=== PATIENT | male | born 1950 | race Caucasian/White ===

== ENCOUNTER 2017-08-26 09:15 | Inpatient (IN) | payer OTHER ==
[2017-08-16 08:40] VITALS: BMI 35.0
--- NOTE | 2017-08-16 09:20 | PAT Medication Instructions ---
Service Date Aug 16, 2017. Current Home Medication List Aspirin (Aspirin Ec), 81 MG PO QAM Cholecalciferol (Vitamin D3), 1 CAP PO QAM Citalopram Hydrobromide (Citalopram Hydrobromide), 1 TAB PO QPM Fluticasone Propionate (Flovent Hfa), 2 PUFFS INH BID Furosemide (Lasix), 20 MG PO QAM Sbywkqrnapq-Hkxvoqdczqz-Qlr C- (Glucosamine Chondroitin), 1 TAB PO QAM Ibrutinib (Imbruvica), 420 MG PO QAM Ipratropium Valencia (Atrovent Hfa), 2 PUFFS INH QID PRN for RN Meloxicam (Mobic), 15 MG PO QAM PRN for RN Metformin Hcl (Glucophage), 500 MG PO BID Multivitamin (Multivitamin), 1 TAB PO QAM Potassium Chloride (Micro-K Ext Rel), 10 MEQ PO QAM Simvastatin (Zocor), 20 MG PO QAM [Cvd], 1 DOSE TOP PRN Medication Instructions For Your Scheduled Surgery - Check with prescribing physician for instructions: Ibrutinib (Imbruvica), 420 MG PO QAM - Already on hold per surgeon: Meloxicam (Mobic), 15 MG PO QAM PRN for RN Hodeuejaube-Hfzumouxcfg-Equ C- (Glucosamine Chondroitin), 1 TAB PO QAM - Hold the following medications 24 hours prior to surgery: [Cvd], 1 DOSE TOP PRN - Hold the following medications the morning of surgery: Cholecalciferol (Vitamin D3), 1 CAP PO QAM Furosemide (Lasix), 20 MG PO QAM Potassium Chloride (Micro-K Ext Rel), 10 MEQ PO QAM Metformin Hcl (Glucophage), 500 MG PO BID Multivitamin (Multivitamin), 1 TAB PO QAM - Take the following medications the morning of surgery with a sip of water: Simvastatin (Zocor), 20 MG PO QAM Ipratropium Valencia (Atrovent Hfa), 2 PUFFS INH QID PRN for RN (if needed) Fluticasone Propionate (Flovent Hfa), 2 PUFFS INH BID Aspirin (Aspirin Ec), 81 MG PO QAM - Take the following medications as scheduled the night before surgery: Metformin Hcl (Glucophage), 500 MG PO BID Ipratropium Valencia (Atrovent Hfa), 2 PUFFS INH QID PRN for RN (if needed) Fluticasone Propionate (Flovent Hfa), 2 PUFFS INH BID Citalopram Hydrobromide (Citalopram Hydrobromide), 1 TAB PO QPM If you have any questions please call us at [phone] or [phone] or [phone]
--- NOTE | 2017-08-16 10:01 | DIAGNOSTIC IMAGING REPORT ---
CHEST 2 VIEWS ROUTINE CLINICAL HISTORY: Preoperative chest COMPARISON STUDY: No previous studies for comparison. FINDINGS: The cardiac and mediastinal contours are normal. There is no evidence of focal pulmonary consolidation. There is no evidence of failure. No pleural effusions are visualized.[ IMPRESSION: No active disease in the chest. Electronically signed by: Ankit Lopes M.D. 08/16/2017 10:00 AM Dictated Date/Time: 08/16/2017 9:59 AM
[2017-08-16 10:18] LABS: HEMOGLOBIN A1C 5.5 % (4.5-5.6)
[2017-08-16 10:33] LABS: HEMATOCRIT 46.4 % (42-52); HEMOGLOBIN 15.2 g/dL (14.0-18.0); MEAN CELL VOLUME 92.4 fL (80-100); MEAN CORPUSCULAR HEMOGLOBIN 30.3 pg (25-34); MEAN CORPUSCULAR HGB CONC 32.8 g/dl (32-36); MEAN PLATELET VOLUME 11.4 fL (7.4-10.4); PLATELET COUNT 200 K/uL (130-400); RED CELL DISTRIBUTION WIDTH CV 15.2 % (11.5-14.5); RED CELL DISTRIBUTION WIDTH SD 50.3 fL (36.4-46.3)
[2017-08-16 11:07] LABS: BASO % 0.3 %; EOS % 0.1 %; LYMPH % 90.4 %; LYMPH ABS # 86.76 K/uL (1.2-3.4); MONO % 1.9 %; NEUT % 7.1 %; NEUT ABS # 6.83 K/uL (1.4-6.5)
[2017-08-16 11:08] LABS: BASO ABS # 0.25 K/uL (0-0.2); IG# 0.22 K/uL (0.00-0.02); MONO ABS # 1.84 K/uL (0.11-0.59)
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
[~2017-08-26] VITALS: Ht 182.9 cm; Wt 117.0 kg
[2017-08-26] VITALS (11 sets, daily range): BP systolic 138–181; BP diastolic 72–101; PULSE 89–116; TEMP 36.3–37; O2SAT 94–100; Ht 182.9 cm; Wt 117.0 kg
[~2017-08-26 09:15] MED LIST: ACETAMINOPHEN 500 MG TAB PO SCH; ASPI81TA28 PO; ATRIN INH; ATROPINE SULFATE 0.1 MG/ML 5ML SYR IV PRN; BUPIVACAINE 0.5 % 5 MG/1 ML PF 10ML VIAL ONE; CEFAZOLIN 2000MG IV PUSH 15 ML IV SCH; CHOL2000 PO; CITA20TA4 PO; EpHEDrine SULFATE INJ 50 MG/ML AMP IV PRN; FAMOTIDINE 20 MG TAB PO SCH; FENTANYL CITRATE INJ 50 MCG/1 ML 2 ML VIAL IV PRN; FLVHFA44 INH; FURO-85 PO; GABAPENTIN 300 MG CAP PO SCH; GLC/500 PO; GLUCTAB7 PO; HYDROmorphone INJ 2 MG/ML SYR/VIAL IV PRN; IBRU420T PO; LABETALOL HCL IV 5 MG/ML 20ML IV PRN; LACTATED RINGER'S 1000ML 1,000 ML IV SCH; LACTATED RINGER'S 1000ML IV SCH; MELO7.5T5 PO; MEPERIDINE HCL 25 MG/ML CARP IV PRN; METOCLOPRAMIDE HCL 10 MG TAB PO SCH; MULT-506 PO; ONDANSETRON INJ 2 MG/ML 2 ML VIAL IV PRN; POTA10CA28 PO; SCOPOLAMINE 1.5 MG TDSY TD SCH; SIMV20TA2 PO; TRANEXAMIC ACID INJ 1,000 MG x 1 Bag Preop IV SCH; [UNRECOGNIZED DRUG - CODE] TOP
[2017-08-26] MEDS ORDERED: BACITRACIN 50000 UNIT VIAL ONE (10:19)
[2017-08-26] MEDS ORDERED: BUPIVACAINE/EPINEPHRINE 0.5% MPF 1:200,000 30 ML VIAL ONE (10:19)
[2017-08-26] MEDS ORDERED: LIDOCAINE HCL 2% 2 ML VIAL (20MG/ML) ONE (11:18)
[2017-08-26] MEDS ORDERED: MIDAZOLAM HCL 1 MG/ML 2ML VIAL ONE (11:18)
[2017-08-26] MEDS ORDERED: PROPOFOL IV EMULSION 10 MG/ML 20 ML VIAL IV ONE (11:18)
[2017-08-26] MEDS ORDERED: FENTANYL CITRATE INJ 50 MCG/1 ML 2 ML VIAL ONE (11:19)
[2017-08-26] MEDS ORDERED: MoRPHine SULFATE PF 1 MG/ML 10 ML AMP/VIAL ONE (11:19)
--- NOTE | 2017-08-26 11:46 | History & Physical Bridge Note ---
H&P Re-Evaluation Bridge Note: I have examined the patient, reviewed the History & Physical and in the interval since the performance of the History & Physical I have noted the following changes of clinical significance: Patient FULLY aware of increased risk of surgery under current chemo regimine and stage of cancer and desires to proceed. No changes noted
[2017-08-26] MEDS ORDERED: EpHEDrine SULFATE 50MG/5ML SYR ONE (12:39)
[2017-08-26] MEDS ORDERED: PHENYLEPHRINE HCL INJ 10 MG/ML VIAL ONE (12:57)
--- NOTE | 2017-08-26 13:44 | [facility] Post Operative Brief Note ---
Immediate Operative Summary Operative Date Aug 26, 2017. Pre-Operative Diagnosis Left Hip Degenerative Joint Disease Post-Operative Diagnosis Same as preop Procedure(s) Performed Left Total Hip Arthroplasty Umcemented Surgeon Dr. Alvarez Director Of Digital Technology Surgeon(s) Constantin Guzmán PA-C Estimated Blood Loss 300ml Findings Consistent with Post-Op Diagnosis Fluids (cc crystalloids) 1500 Specimens A. Left Femoral Head Drains None Anesthesia Type Spinal MAC Complication(s) none Disposition Accompanied Pt To Recover: yes Disposition: Recovery Room / PACU
[2017-08-26] MEDS ORDERED: BISACODYL 10 MG SUPP PR PRN (13:45)
[2017-08-26] MEDS ORDERED: ALUMINUM/MAGNESIUM/SIMETH (MAALOX MAX) 30 ML UDC PO PRN (13:45)
[2017-08-26] MEDS ORDERED: TAMSULOSIN HCL 0.4 MG CAP PO PRN (13:45)
[2017-08-26] MEDS ORDERED: METOCLOPRAMIDE HCL INJ 5 MG/ML 2 ML VIAL IV PRN (13:45)
[2017-08-26] MEDS ORDERED: IPRATROPIUM BROMIDE HFA INHALER INH PRN (13:45)
[2017-08-26] MEDS ORDERED: MAGNESIUM HYDROXIDE SUSP 30 ML UDC PO PRN (13:45)
[2017-08-26] MEDS ORDERED: CEFAZOLIN IV 2,000 MG in DEXTROSE 5% 50ML 50 ML IV SCH (13:45)
[2017-08-26] MEDS ORDERED: SILVER SULFADIAZINE 1% CR 50 GM JAR EXT PRN (13:45)
--- NOTE | 2017-08-26 14:10 | DIAGNOSTIC IMAGING REPORT ---
SINGLE VIEW PELVIS; SINGLE VIEW LEFT HIP CLINICAL HISTORY: Postoperative examination. FINDINGS: An AP portable view of the hips and pelvis with a crosstable lateral portable view of the left hip are obtained. A bipolar left hip arthroplasty is in near-anatomic alignment. At least 2 cortical lag screws transfix the acetabular cup. No acute fracture is identified. There are expected postoperative changes overlying the left hip including skin clips, subcutaneous gas, and soft tissue swelling. Chronic posttraumatic deformity is seen in the left proximal femoral shaft. Moderate to advanced arthritic change is noted in the right hip. Surgical clips project over the scrotum. IMPRESSION: Expected postoperative findings status post left hip arthroplasty. No acute fracture is seen. Electronically signed by: Uriel Conrad M.D. 08/26/2017 2:09 PM Dictated Date/Time: 08/26/2017 2:08 PM
[2017-08-26] MEDS ORDERED: GLUCAGON FOR INJ 1 MG VIAL SQ PRN (14:15)
[2017-08-26] MEDS ORDERED: GLUCOSE 40% GEL 15 GM TUBE PO PRN (14:15)
[2017-08-26] MEDS ORDERED: DEXTROSE 50% 50 ML SYR IV PRN (14:15)
[2017-08-26] MEDS ORDERED: GLUCOSE 10 TABS/TUBE PO PRN (14:15)
[2017-08-26] MEDS ORDERED: SODIUM CHLORIDE 0.9% 1000ML 1,000 ML IV PRN (14:35)
[2017-08-26] MEDS ORDERED: NALOXONE HCL INJ 1 MG in SODIUM CHLORIDE 0.9% 1000ML 1,000 ML IV PRN (14:35)
[2017-08-26] MEDS ORDERED: LACTATED RINGER'S 1000ML 500 ML IV PRN (14:35)
[2017-08-26] MEDS ORDERED: NALOXONE HCL INJ 0.08 MG in SYRINGE 1.8 ML IV PRN (14:35)
--- NOTE | 2017-08-26 14:35 | Anesthesiology Progress Note ---
Anesthesia Post Op Note Date & Time Aug 26, 2017 at 14:34 Vital Signs Pain Intensity: 0 Vital Signs Past 12 Hours Date Time Temp Pulse Resp B/P (MAP) Pulse Ox O2 Delivery O2 Flow Rate FiO2 08/26/17 14:29 93 18 95 08/26/17 14:29 93 18 08/26/17 14:26 130/53 08/26/17 14:24 95 18 97 08/26/17 14:24 96 18 08/26/17 14:21 126/67 08/26/17 14:19 96 15 08/26/17 14:19 96 15 97 08/26/17 14:18 100 18 97 08/26/17 14:18 100 18 08/26/17 14:16 148/67 08/26/17 14:15 36.3 97 16 148/67 (88) 97 Nasal Cannula 10 08/26/17 14:13 96 10 08/26/17 14:13 97 10 99 08/26/17 14:12 98 17 08/26/17 14:12 99 17 98 08/26/17 14:11 134/75 08/26/17 14:09 126/85 08/26/17 14:07 100 19 08/26/17 14:07 101 19 97 08/26/17 14:06 84/79 08/26/17 14:02 105 24 98 08/26/17 14:02 105 24 08/26/17 14:01 143/74 08/26/17 13:57 100 22 08/26/17 13:57 100 22 98 08/26/17 13:56 123/75 08/26/17 13:54 104/60 08/26/17 13:52 104 27 08/26/17 13:52 104 27 97 08/26/17 13:51 96/78 08/26/17 13:47 36.3 101 20 111/61 (88) 97 Oxymask 10 08/26/17 13:47 101 14 08/26/17 13:47 101 14 111/61 96 08/26/17 09:46 36.7 93 18 152/72 100 Room Air Notes Mental Status: alert / awake / arousable, participated in evaluation Pt Amnestic to Procedure: Yes Nausea / Vomiting: adequately controlled Pain: adequately controlled Airway Patency, RR, SpO2: stable & adequate BP & HR: stable & adequate Hydration State: stable & adequate Neuraxial Anesthesia: was administered, sensory block is resolving Anesthetic Complications: no major complications apparent
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
[2017-08-26] MEDS ORDERED: ONDANSETRON INJ 2 MG/ML 2 ML VIAL IV PRN (14:45)
[2017-08-26] MEDS ORDERED: NALOXONE HCL 0.4 MG/1 ML VIAL/CARP IV PRN (14:45)
[2017-08-26] MEDS ORDERED: DiphenhydrAMINE HCL 50 MG/ML VIAL IV PRN ×2 (14:45)
[2017-08-26] MEDS ORDERED: MoRPHine SULFATE PF 1 MG/ML 10 ML AMP/VIAL EPI PRN (14:45)
[2017-08-26] MEDS ORDERED: NO NARCOTICS OR SEDATIVES SCH (14:45)
[2017-08-26] MEDS ORDERED: NALBUPHINE HCL INJ 10 MG/ML AMP IV PRN (14:45)
[2017-08-26] MEDS ORDERED: MoRPHine SULFATE 2 MG/ML CARP IV PRN (14:45)
[2017-08-26] MEDS ORDERED: MEPERIDINE HCL 25 MG/ML CARP IV PRN (14:45)
[2017-08-26] MEDS ORDERED: EpHEDrine SULFATE INJ 50 MG/ML AMP IV PRN (14:45)
[2017-08-26] MEDS: CHECK SCOPOLAMINE PATCH PLACEMENT SCH ×2 (15:47→23:19)
[2017-08-26] MEDS: SODIUM CHLORIDE 0.9% 1000ML 1,000 ML IV SCH ×2 (15:48→22:42)
[2017-08-26] MEDS: INSULIN HUMAN REGULAR SC SCH ×2 (17:15→20:27)
[2017-08-26] MEDS: FERROUS GLUCONATE 324 MG TAB PO SCH (17:44)
[2017-08-26] MEDS: KETOROLAC TROMETHAMINE 15 MG/ML VIAL IV. SCH ×2 (18:39→23:25)
[2017-08-26] MEDS ORDERED: TRANEXAMIC ACID INJ 1,000 MG in SODIUM CHLORIDE 0.9% 100ML 100 ML IV ONE (20:00)
[2017-08-26] MEDS: CEFAZOLIN IV 2,000 MG in SYRINGE 0 ML IV SCH (20:07)
[2017-08-26] MEDS: DOCUSATE SODIUM 100 MG CAP PO SCH (20:17)
[2017-08-26] MEDS: ASPIRIN 81 MG ECTAB PO SCH (20:19)
[2017-08-26] MEDS: FLUTICASONE PROP HFA INH 44 MCG INHALER INH SCH (20:20)
[2017-08-26] MEDS ORDERED: ASPI-320 PO (20:46)
[2017-08-26] MEDS ORDERED: ACET-24 PO (20:46)
[2017-08-26] MEDS ORDERED: RXC5 PO (20:46)
[2017-08-26] MEDS ORDERED: FRRG PO (20:46)
--- NOTE | 2017-08-26 20:50 | Discharge Instructions ---
Discharge Instructions Date of Service Aug 26, 2017. Admission Reason for Admission: Left Hip Degenerative Joint Disease Discharge Discharge Diagnosis / Problem: Left Hip Replacement Discharge Goals Goal(s): Decrease discomfort, Improve function, Increase independence, Improve disease control, Therapeutic intervention Activity Recommendations Activity Limitations: per Instructions/Follow-up section (Total Hip Precautions ) Weightbearing Status: Left weightbearing . Instructions / Follow-Up Instructions / Follow-Up ACTIVITY RECOMMENDATIONS: Physical Therapy: * Aggressive physical therapy is not usually needed. You will learn to take care of yourself safely and walk. * Follow the "Hip Precautions Instructions." * In some cases, the social studies department chair at the hospital will arrange to have a therapist come to your house for the first couple of weeks to help you learn these skills. * You need to practice on your own or with the help of a family member as needed. * When you learn these skills, most of the therapy can be done on your own. Home Exercise: * You were shown a series of exercises in the hospital. Do these exercises three to four times each day including the exercises you were shown in physical therapy. Walking: * Get up and walk several times each day. For the first four weeks, try not to stand or walk for more than one hour at a time. If you do stand or walk for more than one hour, you will not hurt anything, but your leg will likely swell. * As you feel comfortable, you may change from the walker or crutches to a cane and then to independent walking. MEDICATIONS: New Medicine: * You will likely be taking one or more of these medicines: 1. Oxycodone - Take, as directed, when you need it, every four to six hours to control your pain. 2. Iron Sulfate - Take two times each day for the month after surgery to help you replace the blood lost during surgery. 3. Aspirin - Thins your blood to lessen the chance of forming a blood clot. The dose of this is different for each person and is based on your blood tests that are done every Saturday and . * The most common side effects of pain medicine and iron are nausea and constipation. If nausea or constipation is too much of a problem or if you have any questions about your new medicines or doses, call [facility] at . We will try to help you manage these issues. VERY IMPORTANT TO READ AND REVIEW" Pain: * The immediate post-operative period after hip replacement surgery is often quite painful. * You are given a prescription for pain medicine. You should take it, as directed, when you need it, especially before physical therapy and before going to bed. Pain that interferes with sleep is very common and can last several months. * You will likely need pain medicine for the first two to four weeks. It will not stop all of the pain. The pain will lessen and as you feel better, you may change to milder pain medicine such as Tylenol. * The most common side effects of pain medicine are nausea and constipation, so don't take more than you need. SPECIAL CARE INSTRUCTIONS: TEDs/Elastic Stockings: * The white elastic stockings help limit swelling and prevent blood clots from forming in your legs. The more you wear them, the more they work. * Wear them for six weeks. Prevention of Infection: * Take antibiotics one hour before any dental cleaning, dental work, urological procedure, gastrointestinal procedure or any invasive surgery in order to prevent your new joint from getting infected. * You may get the antibiotics from the doctor performing the procedure or you may call our office at before and we will call in a prescription to the pharmacy of your choice. Things to Watch For: * Drainage from the incision site that occurs more than one week after your surgery. * Severely increased leg pain or swelling. * Increased redness at the incision site. * Fever above 102 degrees Fahrenheit. * Unusual chest pain or shortness of breath. * Unusual pain or burning with urination. Call [facility] at with any of the above problems or if you have any questions about your medicines or recovery. FOLLOW UP VISIT: Make an appointment to see your doctor for approximately two weeks after surgery for a progress check and staple removal by calling the office at . Current Hospital Diet Patient's current hospital diet: Diabetes Type 2 Diet Discharge Diet Recommended Diet: Diabetes Type 2 Diet Procedures Procedures Performed: Left Total Hip Arthroplasty Umcemented Pending Studies Studies pending at discharge: no Laboratory Results Hemoglobin A1c Test 08/16/17 09:28 Range/Units Estimated Average Glucose 111 mg/dl Hemoglobin A1c 5.5 4.5-5.6 % Medical Emergencies . Who to Call and When: Medical Emergencies: If at any time you feel your situation is an emergency, please call 911 immediately. . Non-Emergent Contact Non-Emergency issues call your: Surgeon . "Provider Documentation" section prepared by Prashant Alvarez. .
[2017-08-26] MEDS ORDERED: CITALOPRAM 20 MG TAB PO SCH (21:00)
[2017-08-26] MEDS ORDERED: SENNA 8.6 MG TAB PO SCH (21:00)
[2017-08-26] MEDS: ACETAMINOPHEN 500 MG TAB PO SCH (22:21)
[2017-08-27] VITALS (11 sets, daily range): BP systolic 139–156; BP diastolic 79–80; PULSE 91–98; TEMP 36.8–37.2; O2SAT 91–95
[2017-08-27] MEDS: CEFAZOLIN IV 2,000 MG in SYRINGE 0 ML IV SCH (04:14)
[2017-08-27] MEDS: SODIUM CHLORIDE 0.9% 1000ML 1,000 ML IV SCH ×2 (05:22→11:35)
[2017-08-27] MEDS: ACETAMINOPHEN 500 MG TAB PO SCH (05:23)
[2017-08-27] MEDS: KETOROLAC TROMETHAMINE 15 MG/ML VIAL IV. SCH ×2 (05:24→12:17)
[2017-08-27] MEDS ORDERED: DiphenhydrAMINE HCL 50 MG/ML VIAL IV PRN (06:00)
[2017-08-27] MEDS ORDERED: ONDANSETRON INJ 2 MG/ML 2 ML VIAL IV PRN (06:00)
[2017-08-27] MEDS ORDERED: HYDROmorphone INJ 0.5 MG/0.5 ML SYR IV PRN (06:00)
[2017-08-27] MEDS ORDERED: ZOLPIDEM TARTRATE 5 MG TAB PO PRN (06:00)
[2017-08-27] MEDS ORDERED: DC INTRASPINAL MORPHINE ONE (06:00)
[2017-08-27 06:30] LABS: CALCIUM 8.3 mg/dl (8.5-10.1); CREATININE 1.26 mg/dl (0.60-1.40); POTASSIUM 4.3 mmol/L (3.5-5.1)
[2017-08-27 07:23] LABS: HEMATOCRIT 38.9 % (42-52); HEMOGLOBIN 12.7 g/dL (14.0-18.0); MEAN CELL VOLUME 92.6 fL (80-100); MEAN CORPUSCULAR HEMOGLOBIN 30.2 pg (25-34); MEAN CORPUSCULAR HGB CONC 32.6 g/dl (32-36); MEAN PLATELET VOLUME 10.3 fL (7.4-10.4); PLATELET COUNT 210 K/uL (130-400); RED CELL DISTRIBUTION WIDTH CV 14.8 % (11.5-14.5); RED CELL DISTRIBUTION WIDTH SD 50.1 fL (36.4-46.3); WHITE BLOOD COUNT 54.84 K/uL (4.8-10.8)
[2017-08-27 07:26] LABS: BASO % 0.1 %; BASO ABS # 0.07 K/uL (0-0.2); EOS ABS # 0.02 K/uL (0-0.5); IG# 0.23 K/uL (0.00-0.02); LYMPH % 71.8 %; LYMPH ABS # 39.39 K/uL (1.2-3.4); MONO % 4.9 %; MONO ABS # 2.69 K/uL (0.11-0.59); NEUT % 22.8 %; NEUT ABS # 12.44 K/uL (1.4-6.5)
[2017-08-27] MEDS: INSULIN HUMAN REGULAR SC SCH ×2 (08:00→12:00)
[2017-08-27] MEDS: CHECK SCOPOLAMINE PATCH PLACEMENT SCH (08:03)
[2017-08-27] MEDS: FERROUS GLUCONATE 324 MG TAB PO SCH ×2 (08:28→12:17)
[2017-08-27] MEDS: DOCUSATE SODIUM 100 MG CAP PO SCH (08:28)
[2017-08-27] MEDS: ASPIRIN 81 MG ECTAB PO SCH (08:29)
[2017-08-27] MEDS: OXYCODONE HCL IR 5 MG TAB (IMMEDIATE RELEASE) PO PRN ×2 (08:31→13:17)
[2017-08-27] MEDS: FLUTICASONE PROP HFA INH 44 MCG INHALER INH SCH (08:32)
[2017-08-27] MEDS ORDERED: MULTIVITAMIN TAB PO SCH ×2 (09:00)
[2017-08-27] MEDS ORDERED: FUROSEMIDE 20 MG TAB PO SCH (09:00)
[2017-08-27] MEDS ORDERED: SIMVASTATIN 20 MG TAB PO SCH (09:00)
[2017-08-27] MEDS ORDERED: PANTOprazole SOD 40 MG TAB PO SCH (09:00)
[2017-08-27] MEDS ORDERED: TAPENTADOL ER 50 MG TABCR PO SCH (09:00)
[2017-08-27] MEDS ORDERED: POTASSIUM CHLORIDE 10 MEQ TABCR PO SCH (09:00)
[2017-08-27] MEDS ORDERED: CHOLECALCIFEROL 1000 INTER.UNIT TAB PO SCH (09:00)
--- NOTE | 2017-08-27 09:27 | PROGRESS NOTE ---
DATE: 08/27/2017 SUBJECTIVE: A 67-year-old gentleman postop day #1 from a left total hip replacement. He is doing well. Just a little soreness in his hip. He has been up and walking and doing well. Denies any chest pain or shortness of breath. Not feeling dizzy or lightheaded. He really wants to go home today. OBJECTIVE: VITAL SIGNS: Temperature 37.0. Vital signs stable. GENERAL: Physical examination reveals a pleasant, middle-aged male. He is sitting up in bed and looks pretty comfortable. LUNGS: Clear to auscultation. HEART: Regular rate and rhythm. ABDOMEN: Soft, nontender, and nondistended. EXTREMITIES: Grossly neurovascularly intact except as follows: Examination of the left leg reveals the dressing to be clean, dry and intact. His hip is located. Leg lengths were equal. He can dorsiflex and plantarflex his foot appropriately. LABORATORY DATA: Hemoglobin 12.7, hematocrit 38.9 and white cell count of 54.84 from his chronic lymphocytic leukemia. Electrolytes are stable. ASSESSMENT: A 67-year-old gentleman postop day #1 from a left total hip replacement, doing well. Pain is controlled. He is getting around pretty well. He really wants to go home and pretty adamant about that. He looks medically stable. PLAN: 1. DVT prophylaxis including thigh-high TEDs, SCDs, and aspirin twice a day. 2. PT/OT. Weightbear as tolerated. Left total hip protocol. 3. Pain control. Doing well with current pain regimen. 4. CLL. He is going to resume his medicine in 1 week and he is fully aware of that. 5. Disposition: He is going to be discharged to home with some home health. We will have him change the bandage tomorrow.
--- NOTE | 2017-09-06 14:44 | DISCHARGE SUMMARY ---
ADMITTING PHYSICIAN AND SURGEON: Dr. Alvarez. ADMITTING DIAGNOSIS: Left hip degenerative joint disease. SURGERY PERFORMED: Left total hip arthroplasty. SECONDARY DIAGNOSES: B cell lymphoma, COPD, chronic low back pain, prediabetes. CONSULTS: None obtained. HISTORY AND PHYSICAL EXAMINATION: Well documented in the patient's chart. HOSPITAL COURSE: The patient was admitted on 08/26/2017, underwent total hip arthroplasty, tolerated the procedure well. There were no complications. He was transferred to the PACU postoperatively and later to the orthopedic floor for further care. He was given Ancef for antibiotic prophylaxis, TOMAS stockings, SCDs and aspirin for DVT prophylaxis. Hemoglobin, hematocrit and vital signs were monitored during his hospital stay and remained stable. He did not require blood transfusions. There were no complications. By postoperative day 1, he was tolerating a diabetic diet. Pain was controlled with oral pain medicine. He was participating in physical therapy. On postop day 1, he was discharged home, set up with home health services. He was given printed discharge instructions including new prescriptions for extra strength Tylenol, aspirin, iron supplement, and oxycodone. Continue his home medications with the exception of aspirin and ibrutinib. He is to resume medication that he takes for his CLL in 1 week in and was aware of that. Continue TOMAS stockings, weightbearing as tolerated, total hip precautions. Follow up in 10-12 days or sooner if there are any problems or concerns.
== END 2017-08-27 14:00 | disposition home health service (06) | DRG 470 ==
LOC: C.ACU 09:15 → C.3E 11:40 → ENRESERV 14:13
PROVIDERS: ADMIT Orthopaedic Surgery Sports Medicine; ATTEND Orthopaedic Surgery Sports Medicine
PROC: 0SRB0JA Replacement of Left Hip Joint with Synthetic Substitute, Uncemented, Open Approach (ICD-10-PCS; principal; 2017-08-26 11:30)
DX: M16.52 Unilateral post-traumatic osteoarthritis, left hip (principal); C83.30 Diffuse large B-cell lymphoma, unspecified site; J44.9 Chronic obstructive pulmonary disease, unspecified; M54.5 Low back pain; G89.29 Other chronic pain; R73.03 Prediabetes; Z79.84 Long term (current) use of oral hypoglycemic drugs; Z79.82 Long term (current) use of aspirin

== ENCOUNTER 2023-05-22 10:42 | Inpatient (IN) ==
[2023-05-22] MEDS ORDERED: FUROSEMIDE 40 MG/4 ML VIAL IV ONE (11:55)
--- NOTE | 2023-05-22 11:57 | XRay Report ---
SINGLE VIEW CHEST CLINICAL HISTORY: Atypical chest pain FINDINGS: A PA chest radiograph is compared to study dated 08/05/2018 and correlated with chest CT roberta ed 02/13/2023. A right internal jugular central venous infusion port is unchanged in position. The car diomediastinal silhouette is unremarkable. Emphysema and chronic interstitial thickening is similar t o previous. There is mild bibasilar scarring/atelectasis. The lungs and pleural spaces are otherwise clear. No pneumothorax is seen. The skeletal structures are osteopenic. The bony thorax is grossly in tact. IMPRESSION: Emphysematous change with no active disease in the chest. ACT 112: Negative or not required by law. Electronically signed by: Uriel Conrad M.D. 05/22/2023 11:56 AM
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
[2023-05-22 12:22] LABS: Hematocrit (blood only) 20.2 % (42.0-52.0); Hemoglobin 7.1 g/dl (14.0-18.0); Mean Corpuscular Hgb Conc 35.1 g/dL (32.0-36.0); Mean Corpuscular Volume 102.5 fL (80.0-100.0); Mean Platelet Volume 9.9 fL (9.4-12.4); Platelet Count 322 K/uL (130-400); RDW Standard Deviation 77.5 fL (36.4-46.3); Red Blood Count 1.97 M/uL (4.70-6.10); White Blood Count 12.73 K/ul (4.8-10.8)
[2023-05-22 12:23] LABS: Alanine Aminotransferase 17 U/L (7-52); Albumin Globulin Ratio 1.5 (0.9-2); Albumin Level 3.5 gm/dl (3.4-5.0); Alkaline Phosphatase 129 U/L (34-104); Anion Gap 6 (3-11); Aspartate Aminotransferase 30 U/L (13-39); Bilirubin,Total 0.5 mg/dl (0.2-1.0); Blood Urea Nitrogen 26 mg/dl (6-23); Calcium 8.5 mg/dl (8.6-10.3); Carbon Dioxide 27 mmol/L (21-32); Chloride 105 mmol/L (98-107); Est GFR (African American) 51.9 ml/min; Est GFR (Non-African American) 44.8 ml/min; Globulin 2.3 gm/dl (2.5-4.0); Glucose 87 mg/dl (70-99(Fasting)); Sodium 138 mmol/L (136-145); Total Protein 5.8 gm/dl (6.0-8.3)
[2023-05-22 12:29] LABS: Troponin I High Sensitivity 20.7 pg/ml (0-20)
[2023-05-22 12:33] LABS: INR 1.2 (0.9-1.1); Partial Thromboplastin Ratio 1.1; Partial Thromboplastin Time 30 Seconds (21-31); Prothrombin Time 12.7 Seconds (9.0-12.0)
[2023-05-22] MEDS ORDERED: SODIUM CHLORIDE 0.9% 250 ML IV PRN ×2 (12:41→20:16)
[2023-05-22 13:01] LABS: Anisocytosis Present; Basophils # (auto) 0.02 K/uL (0.00-0.20); Basophils % (auto) 0.2 %; Eosinophils # (auto) 0.03 K/uL (0.00-0.50); Eosinophils % (auto) 0.2 %; Immature Granulocytes % (auto) 0.8 %; Lymphocytes # (auto) 8.22 K/uL (1.20-3.40); Lymphocytes % (auto) 64.6 %; Monocytes # (auto) 1.55 K/uL (0.11-0.59); Monocytes % (auto) 12.2 %; Neutrophils # (auto) 2.81 K/uL (1.40-6.50)
[2023-05-22 13:46] LABS: Influenza A virus by PCR Negative (Neg); Influenza B virus by PCR Negative (Neg); RSV by PCR Negative (Neg); SARS CoV2 RNA(COVID-19) Ceph NEGATIVE (Negative)
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
--- OUTSIDE RECORDS SUMMARY | 2023-05-22 14:49 | External Medical Summary ---
Author Name Unknown Address Unknown Organization [id number]:[facility] [place] [facility] [address] [place] [address] Laboratory Report Ordering Provider Test Date Status MARLON ORTEGA 05/08/2023 08:55:59 Final Observation Date Value Abnormality Reference (Units ) Status WBC, Total 05/08/2023 08:55:59 19.54 Above high normal 4.00-10.80 (K/uL) Final RBC 05/08/2023 08:55:59 2.62 4.50-5.25 (M/uL) Final Hemoglobin 05/08/2023 08:55:59 9.1 Below low normal 14.0-16.8 (g/dL) Final HCT 05/08/2023 08:55:59 27.0 Below low normal 40.0-48.4 (%) Final MCV 05/08/2023 08:55:59 103.1 82.0-99.5 (fL) Final MCH 05/08/2023 08:55:59 34.7 27.0-34.0 (pg) Final MCHC 05/08/2023 08:55:59 33.7 32.0-36.0 (g/dL) Final RDW 05/08/2023 08:55:59 19.0 11.5-15.5 (%) Final Platelets 05/08/2023 08:55:59 398 140-400 (K/uL) Final MPV 05/08/2023 08:55:59 8.9 6.6-11.1 (fL) Final Nucleated erythrocytes/100 leukocytes [Ratio] in Blood by Automated count 05/08/2023 08:55:59 0 <=0 (/100 WBCs) Final Performing Location [facility] [place] [address] [place] [address]
--- OUTSIDE RECORDS SUMMARY | 2023-05-22 14:49 | External Medical Summary | Summary of Care ---
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 60 Cap 11 05/14/2014 Active Acetaminophen 500 MG Capsule Take 2 Capsules by mouth every 6 hours as needed for Fever >38C(100.5F) or Pain, Mild. 0 Active aspirin enteric coated 81 MG TBEC Take 1 Tablet by mouth in the morning. 0 Active Fluticasone-Umeclid in-Vilant 100-62.5-25 MCG/ACT Aerosol Powder Breath Activated Inhale 1 Puff by mouth in the morning. 0 Active allopurinol (ZYLOPRIM) 100 MG TabletIndications:C hronic leukemia in remission (HCC),Elevated blood uric acid level Take 1 Tab by mouth daily. 30 Tab 5 03/25/2019 Active levalbuterol (XOPENEX) 1.25 MG/3ML nebulizer solution Inhale 1 Ampule via nebulizer every 8 hours as needed for Shortness of Breath or Wheezing. 5 05/01/2019 Active Albuterol Sulfate HFA 108 (90 Base) MCG/ACT Inhalation Aerosol Solution Inhale 2 Puffs by mouth every 4 hours as needed for Wheezing or Shortness of Breath. 0 04/12/2021 Active dilTIAZem HCl ER Coated Beads 120 MG Oral Capsule Extended Release 24 Hour (Cardizem CD)Indications:HTN, goal below 150/90,PAF (paroxysmal atrial fibrillation) (HCC) TAKE 1 CAPSULE BY MOUTH EVERY DAY 90 Capsule 3 06/28/2022 Active Eliquis 5 MG Oral Tablet (Apixaban)Indicatio ns:PAF (paroxysmal atrial fibrillation) ([facility]) TAKE 1 TABLET BY MOUTH TWICE A DAY 180 Tablet 3 06/28/2022 Active Metoprolol Tartrate 50 MG Oral Tablet (Lopressor)Indicati ons:HTN, goal below 150/90,PAF (paroxysmal atrial fibrillation) ([facility]) TAKE 1 TABLET BY MOUTH TWICE A DAY 180 Tablet 3 06/28/2022 Active Furosemide 20 MG Oral Tablet (Lasix)Indications: Localized edema Take 1 Tablet by mouth in the morning. 90 Tablet 1 01/10/2023 Active Ondansetron HCl 8 MG Oral TabletIndications:G all bladder disease Take 1 Tablet by mouth every 8 hours as needed for Nausea. 30 Tablet 0 01/16/2023 Active Prochlorperazine Maleate 10 MG Oral Tablet (Compazine)Indicati ons:Gall bladder disease Take 1 Tablet by mouth every 6 hours as needed for Nausea. 30 Tablet 0 01/16/2023 Active Lidocaine-Prilocain e 2.5-2.5 % External Cream (Emla)Indications:C arcinoma of gall bladder ([facility]) APPLY TO SKIN OVER MEDIPORT & COVER 1HR PRIOR TO ACCESSING. 30 g 1 01/24/2023 Active Atorvastatin Calcium 20 MG Oral Tablet (Lipitor)Indication s:Dyslipidemia, goal LDL below 100 TAKE 1 TABLET BY MOUTH EVERY DAY IN THE MORNING 90 Tablet 1 02/18/2023 Active metFORMIN HCl ER 500 MG Oral Tablet Extended Release 24 Hour (Glucophage XR)Indications:Pred iabetes TAKE 1 TABLET BY MOUTH EVERY DAY IN THE MORNING 90 Tablet 1 02/18/2023 Active documented as of this encounter (statuses as of 05/08/2023) Active Problems Problem Noted Date Diagnosed Date Gall bladder disease 01/16/2023 Encounter for antineoplastic chemotherapy 2022 Carcinoma of gallbladder 01/16/2023 Transaminitis 12/30/2022 Liver mass 12/29/2022 Prediabetes 01/02/2021 Overview: Per Prediabetes protocol Essential tremor 10/16/2019 PAF (paroxysmal atrial fibrillation) 09/29/2018 Encounter for long-term (current) use of medicat ions 06/19/2017 Primary osteoarthritis of one hip 11/19/2016 MEDICATION USE AGREEMENT 11/19/2016 Overview: 11/19/16 Primary osteoarthritis of lumbar spine 6 Primary osteoarthritis of cervical spine 016 HTN, goal below 150/90 08/25/2014 POLST (Physician Orders for Life-Sustaining Micheline tment) 11/12/2013 COPD, mild 01/02/2012 Dyslipidemia, goal LDL below 100 11/15/2009 Chronic 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 02/17/2008 documented as of this encounter (statuses as of 05/08/2023) Resolved Problems Problem Noted Date Diagnosed Date Resolved Date KARISSA (acute kidney injury) 12/29/2022 Prediabetes 04/06/2019 09/08/2020 Overview: Per Prediabetes protocol Acute respiratory failure with hypoxia 10/22/2018 06/02/2019 PVD (peripheral vascular disease) 09/29/2018 09/29/2018 Acute hip pain 11/19/2016 11/20/2016 Screen for colon cancer 06/22/201610/26 Cellulitis of thumb 04/13/2016 11/21/19 17 Vision test 08/22/2015 12/21/2015 Obesity, Class I, BMI 30.0-3 4.9 (see actual BMI) 06/16/2015 11/20/2016 Overview: bmi= 34.24 06/16/15 Mood swings 04/19/2015 11/20/2016 Bronchitis, complicated 09/08/201405/28 Viral URI with cough 09/08/2014 016 INFORMATION 04/26/2014 11/20/2016 Overview: 10 year cardiovascular risk 20% Knee pain, right 03/08/2014 06/16/2015 POLST (Physician Orders for Life-Sustaining Treatment) 11/12/2013 05/14/2014 Obesity, Class I, BMI 30.0-3 4.9 (see actual BMI) 11/06/2013 11/20/2016 Overview: bmi= 34.24 11/06/13 Low back pain 07/20/2013 06/16/2015 S/P cataract surgery 07/20/2013 017 Obesity, Class I, BMI 30.0-3 4.9 (see actual BMI) 05/06/2013 11/20/2016 Overview: bmi= 33.14 05/06/13 Special screening for malign ant neoplasm of prostate 11/03/2012 11/20/2016 Obesity, Class I, BMI 30.0-3 4.9 (see actual BMI) 05/05/2012 11/20/2016 Overview: bmi= 34.52 05/05/12 DJD (degenerative joint disease) 05/05/2012 06/16/2015 Routine medical exam 05/05/2012 016 Prediabetes 04/26/2012 09/03/2018 Severe obesity with body mas s index (BMI) of 35.0 to 39.9 with serious comorbidity 01/02/2012 Overview: bmi= 35.69 01/02/12 ICD-10 update of inactive diagnosis Prediabetes 01/02/2012 11/20/2016 History of tobacco use 01/02/201211/20 Overview: quit 03/10/09 Routine medical exam 01/02/2012 016 Backache 01/02/2012 06/16/2015 Advanced directives, counseling/discussion 08/28/2011 06/16/2015 HTN, goal below 130/80 08/30/201001/01 LEFT HIP CLAUDICATION 10/29/20082015 ADVANCE DIRECTIVE INFORMATION 03/16/2008 06/16/2015 Overview: Pt states he does not have a living will. Pt given an advanced directive brochure. Pt states that he has POA in . Will bring in next time. PAIN IN LIMB, RIGHT DISTAL GREAT TOE 02/06/2008 02/06/2008 ONYCHOLYSIS 02/06/2008 06/16/2015 PVD (PERIPHERAL VASCULAR DIS EASE) PERIPH VASC DISEASE,UNSP 02/06/2008 01/02/2012 Screening for prostate cancer 02/06/2008 08/04/2008 Overview: Resolved per Screening Diagnosis Protocol #6 Tobacco use disorder 02/06/2008 012 Osteoporosis 02/06/2008 06/16/2015 PAIN IN LIMB, LEFT DISTAL GREAT TOE 02/06/2008 06/16/2015 HTN, goal below 140/90 05/06 HTN, goal below 140/80 08/25 documented as of this encounter (statuses as of 05/08/2023) Immunizations Name Administration Dates Next Due COVID-19 mRNA, LNP-s, No Pre serve, 2-Dose Series (Moderna) 08/01/2020,06/30/2020 COVID-19, mRNA, LNP-s, PF, B ooster, 100mcg/0.5mg (Moderna) 06/07/2021 Meningococcal Conjugate Vacc ine (Menactra/Menveo) 09/02/2015 Pneumococcal Conjugate Vacc, 13 Valent (Prevnar) 09/10/2015 Pneumococcal Polysaccharide PPV23 (Pneumovax) 08/28/2016,03/31/2008,03/25/2008 Seasonal Influenza Virus Vac cine, Unspecified Formulation 04/06/2022 Seasonal Influenza, Quadriva lent Hd (Fluzone Hd) 03/12/2023 Seasonal Influenza, Quadriva lent Hd, 65+ Yrs 04/13/2020 Seasonal Influenza, Quadriva lent,with Preserve, 3 yr & above, IM 03/11/2017 Seasonal Influenza, Split, I IV3, With Preserve, Inj 03/18/2019,03/07/2016,02/03/2015,02/26,02/16/2013,03/18/2012,03/17/2011 ,03/17/2010,03/01/2009 Seasonal Influenza, Trivalen t, High Dose, No Preserve, IM 02/24/2021,03/18/2019,03/03/2018,03/11 TDAP (age 10 and older)(Boostrix) 09/23/2018 TDAP (age 11 and older)(Adacel) 03/25/2008 Varicella Zoster Vaccine (Adult) 02/16/2013 Zoster Vaccine Recombinant (Shingrix) 12/14/2019 ,10/12/2019 documented as of this encounter Social History Tobacco Use Types Packs/Day Years Used Date Smoking Tobacco: Former Cigarettes 2 35 Q uit: 03/10/2010 Smokeless Tobacco: Never Alcohol Use Standard Drinks/Week Comments No 0 (1 standard drink = 0.6 oz pur e alcohol) Social drinker prior to 2009 PHQ-2 Answer Date Recorded PHQ-2 Score 0 04/14/2020 Hunger Vital Sign Answer Date Recorded Worried About Running Out of Food in the Last Ye ar Never true 04/02/2019 Ran Out of Food in the Last Year Never true 04/02/2019 Sex and Gender Information Value Date Recorded Sex Assigned at Male 04/02/2019 8:19 AM EST Gender Identity Male 04/02/2019 8:19 AM EST Sexual Orientation Straight 10/22/2018 11 :26 AM EDT Job Start Date Occupation Industry Not on file Not on file Not on file documented as of this encounter Functional Status Functional Status Response Date of Assess ment Are you deaf or do you have serious difficulty h earing? No 12/27/2022 Are you blind or do you have serious difficulty seeing, even when wearing glasses? No 12/27/2022 Do you have serious difficul ty walking or climbing stairs? (5 years old or older) No 12/28/2022 Do you have difficulty dress ing or bathing? (5 years old or older) No 12/27/2022 Because of a physical, menta l, or emotional condition, do you have difficulty doing errands alone such as visiting a doctor s office or shopping? (15 years old or older) No 12/28/19 Cognitive Status Response Date of Assessm ent Because of a physical, menta l, or emotional condition, do you have serious difficulty concentrating, remembering, or making decisions? (5 years old or older) No 12/27/2022 documented as of this encounter Plan of Treatment Upcoming Encounters Date Type Department Care Team (Late st Contact Info) Description 05/09/2023 9:30 AM EST Hem/Onc Treatment Hematology/[address] [address] Chandrika, Chair 7 Hem Onc [address] [place] [address] 05/22/2023 9:30 AM EST Laboratory [facility] [phone] [address] [address] 05/23/2023 9:30 AM EST Office Visit Hematology/Oncology [place] [address] [address] [place] [address] Fernanda Taylor CRNP [address] [place], [place] [address] [address] 05/23/2023 10:00 AM EST Hem/Onc Treatment Hematology/Oncology [address], [address] [address] Chandrika, Chair 1 Hem Onc [facility] [address] [facility] [place] [address] 06/11/2023 8:20 AM EST Office [address] [phone] Chema Combs MD [address] [place] [address] 09/19/2023 1:30 PM EDT Office Visit Cardiology, [facility] [address] [place] [address] Prashant Ruiz, DO [address] [place] [address] Pending Results Name Type Priority Associated Diagnoses Date /Time CBC WITH WBC DIFFERENTIAL Lab STAT Gall bladder disease 05/08/2023 8:55 AM EST COMPREHENSIVE METABOLIC PANEL Lab STAT Gall bladder disease 05/08/2023 8:55 AM EST MAGNESIUM Lab STAT 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) 05/08/2023 8:55 AM EST TSH WITH FREE T4 IF INDICATED Lab STAT Encounter for antineoplastic chemotherapy Gall bladder disease Carcinoma of gallbladder (HCC) 05/08/2023 8:55 AM EST CBC Lab STAT Gall bladder disease 05/08/2023 8:55 AM EST DIFFERENTIAL, AUTOMATED Lab STAT Gall bladder disease 05/08/2023 8:55 AM EST Scheduled Procedures Name Priority Associated Diagnoses Date/Ti me COLONOSCOPY FLEXIBLE PROXIMA L DIAGNOSTIC Recall Encounter for screening colonoscopy Health Maintenance Due Date Last Done Comments Alpha-1 Antitrypsin 1968 Hepatitis C Screening 1968 Cologuard 1995 Fecal Occult Blood Test 1995 Sigmoidoscopy 1995 Albumin/Creatinine Ratio 06/19/2019 017, 12/13/2014, 03/17/2014, Additional history exists Depression Screening 04/14/2021 04/14/2020, 11/11/19 15 HbA1c 12/12/2023 12/11/2022, 06/28, 07/06/2021, Additional history exists B-12 05/01/2024 05/01/2023, 12/11/2022 GFR 05/01/2024 05/01/2023, 03/28, 04/10/2023, Additional history exists O2 ASSESSMENT COMPLETED IN PAST YEAR FOR COPD 05/02/2024 05/02/2023 Colonoscopy 07/06/2026 07/06/2016, 07/06/2016 Colorectal Cancer Screening 07/06/2026 Lipid Panel 07/19/2027 07/19/2022, 03/28, 12/07/2020, Additional history exists DTaP,Tdap,and Td Vaccines (3 - Td or Tdap) 09/23/2028 09/23/2018, 03/25/2008 MENINGOCOCCAL (MENACTRA/MENVEO) Aged Out 09/02/2015 No longer eligible based on patient's age to complete this topic Pneumococcal Vaccine: 65+ Years Completed 08/28/2016, 09/10/2015, 03/31/2008, Additional history exists AAA Screening Completed 08/29/2016 LUNG CANCER SCREENING - USE SMARTSET [id number] Completed 10/01/2017 Zoster Vaccines Completed 12/14/2019, 09/24, 02/16/2013 Influenza Vaccine (FLU shot) Completed , 04/06/2022, 02/24/2021, Additional history exists COVID-19 Vaccine Completed 04/26/2023, 04/2022, 08/01/2020, Additional history exists GARDASIL-HPV IMMUNIZATION SERIES Aged Out No longer eligible based on patient's age to complete this topic Hepatitis B Aged Out No longer eligi ble based on patient's age to complete this topic documented as of this encounter Medical Devices Implanted Type Area Cloth Shearing Supervisor Device Identifier Shelf Expiration Date Model / Serial / Lot Port Implant W/8f Poly Cath - [id number] Implanted:Qty : 1 on 02/12/2023 at [facility] Right: Chest CR BARD : PERIPHERAL VASCULAR [id number] 04/25/2024 [id number] / / [id number] documented as of this encounter Visit Diagnoses Diagnosis Gall bladder disease Unspecified disorder of gallbladder 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) Chronic lymphoid leukemia, without mention of having achieved remission Encounter for antineoplastic chemotherapy Carcinoma of gallbladder (HCC) Malignant neoplasm of gallbladder documented in this encounter Advance Directives Latest Code Status on File Code Status Date Activated Date Inactivated Comments Full Code 12/27/2022 3:40 PM 01/01/2023 8:39 PM This or aj reflects the patients wishes and were consensually agreed upon. Question Answer Comments Discussion of Advance Directives occurred with: Patient Care Teams Hand Tier Relationship Specialty Start Date End Date Chema Combs MD [address] [place] [address] PCP - General Family Medicine 07/02/18 documented as of this encounter
--- OUTSIDE RECORDS SUMMARY | 2023-05-22 14:49 | External Medical Summary ---
Author Name Unknown Address Unknown Organization [id number]:[facility] [place] - [address] [facility] [place] [id number] Laboratory Report Ordering Provider Test Date Status MARLON ORTEGA 05/08/2023 08:55:59 Final Observation Date Value Abnormality Reference (Units ) Status BUN 05/08/2023 08:55:59 23 Above high normal 6-20 (mg/dL) Final Creatinine 05/08/2023 08:55:59 1.4 Above high normal 0.6-1.2 (mg/dL) Final Glomerular filtration rate/1.73 sq M.predicted [Volume Rate/Area] in Serum, Plasma or Blood by Creatinine-based formula (CKD-EPI) 05/08/2023 08:55:59 53 Below low normal >=60 (mL/min) Final eGFR is calculated based on the CKD-EPI 2020 equation SODIUM 05/08/2023 08:55:59 140 135-146 (m mol/L) Final Potassium 05/08/2023 08:55:59 4.6 3.5-5.1 (m mol/L) Final Cl 05/08/2023 08:55:59 105 98-107 (mm ol/L) Final CO2 05/08/2023 08:55:59 22 22-32 (mmo l/L) Final Anion gap 05/08/2023 08:55:59 13 7-15 (mmol /L) Final Glucose 05/08/2023 08:55:59 116 70-120 (mg /dL) Final Albumin 05/08/2023 08:55:59 3.8 3.8-5.0 (g /dL) Final AST (Aspartate aminotransferase) 05/08/2023 08:55:59 33 10-50 (U/L) Fin al Alk Phos 05/08/2023 08:55:59 121 35-130 (U/ L) Final Bilirubin, Total 05/08/2023 08:55:59 0.5 <=1 .2 (mg/dL) Final Calcium 05/08/2023 08:55:59 9.1 8.4-10.2 ( mg/dL) Final Protein 05/08/2023 08:55:59 5.6 Below low normal 6.0 -8.3 (g/dL) Final ALT (Alanine aminotransferase) 05/08/2023 08:55:59 30 10-50 (U/L) Donell matthew Performing Location [facility] [place] - [facility] [address]. [facility] [address]
--- OUTSIDE RECORDS SUMMARY | 2023-05-22 14:49 | External Medical Summary ---
Author Name Unknown Address Unknown Organization [id number]:[facility]ATORY [facility] [place] [address] - [address] [place] [address] Laboratory Report Ordering Provider Test Date Status MARLON ORTEGA 05/22/2023 09:14:26 Final Observation Date Value Abnormality Reference (Units ) Status SYNC LEUKOCYTES IN BLOOD BY AUTOMATED COUNT 05/22/2023 09:14:26 11.95 Above high normal 4.00-10.80 (K/uL) Final Neutrophils/100 leukocytes in Blood by Manual count 05/22/2023 09:14:26 21.0 Below low normal 40.0-75.0 (%) Final Lymphocytes/100 leukocytes in Blood by Manual count 05/22/2023 09:14:26 64.0 Above high normal 18.0-42.0 (%) Final Monocytes/100 leukocytes in Blood by Manual count 05/22/2023 09:14:26 11.0 1.0-11.0 (%) Final Eosinophils/100 leukocytes in Blood by Manual count 05/22/2023 09:14:26 3.0 0.0-6.0 (%) Final Metamyelocytes/100 leukocytes in Blood by Manual count 05/22/2023 09:14:26 1.0 Above high normal <=0.0 (%) Final Neutrophils [#/volume] in Blood by Manual count 05/22/2023 09:14:26 2.51 1.80-7.70 (K/uL) Final Lymphocytes [#/volume] in Blood by Manual count 05/22/2023 09:14:26 7.65 Above high normal 1.00-4.80 (K/uL) Final Monocytes [#/volume] in Blood by Manual count 05/22/2023 09:14:26 1.31 Above high normal 0.00-1.10 (K/uL) Final Eosinophils [#/volume] in Blood by Manual count 05/22/2023 09:14:26 0.36 0.00-0.70 (K/uL) Final Metamyelocytes [#/volume] in Blood by Manual count 05/22/2023 09:14:26 0.12 Above high normal <=0.00 (K/uL) Final Nucleated erythrocytes/100 leukocytes [Ratio] in Blood by Automated count 05/22/2023 09:14:26 Final Variant lymphocytes [Presence] in Blood by Light microscopy 05/22/2023 09:14:26 Present Abnormal None Seen Final Smudge cells [Presence] in Blood by Light microscopy 05/22/2023 09:14:26 Present Abnormal None Seen Final Performing Location [facility] [place] [address] - [address] [place] [address]
--- OUTSIDE RECORDS SUMMARY | 2023-05-22 14:49 | External Medical Summary | Summary of Care ---
Author Name Unknown Organization [facility] Address [address] [place] [address] Phone [phone] Care Team Providers Care Pediatric Urologist Name Role Phone Chema Combs MD Primary Care Provider [phone] Encounter Details Date Type Department Care Team (Late st Contact Info) Description 05/19/2023 Orders Only Hematology/Oncology, [facility] [address] [place] [address] Scout Huddleston MD [address] [place] [address] Allergies Active Allergy Reactions Criticality Noted Date Comments Lisinopril Cough Low 08/18/2009 documented as of this encounter (statuses as of 05/19/2023) Medications Medication Sig Dispensed Refills Start Date [...] Oral Tablet (Apixaban)Indicatio ns:PAF (paroxysmal atrial fibrillation) (HCC) TAKE 1 TABLET BY MOUTH TWICE A DAY 180 Tablet 3 06/28/2022 Active Metoprolol Tartrate 50 MG Oral Tablet (Lopressor)Indicati ons:HTN, goal below 150/90,PAF (paroxysmal atrial fibrillation) (HCC) TAKE 1 TABLET BY MOUTH TWICE A [...] External Cream (Emla)Indications:C arcinoma of gall bladder (HCC) APPLY TO SKIN OVER MEDIPORT & COVER [...] as of this encounter (statuses as of 05/19/2023) Active Problems Problem Noted Date Diagnosed Date [...] as of this encounter (statuses as of 05/19/2023) Resolved Problems Problem Noted Date Diagnosed Date [...] as of this encounter (statuses as of 05/19/2023) Immunizations Name Administration Dates Next Due COVID-19 [...] (15 years old or older) No 12/28/19 23 Cognitive Status Response Date of Assessm ent Because of a physical, menta l, or emotional condition, do you have serious difficulty concentrating, remembering, or making decisions? (5 years old or older) No 12/27/2022 documented as of this encounter Plan of Treatment Upcoming Encounters Date Type Department Care Team (Late st Contact Info) Description 05/22/2023 9:30 AM EST Laboratory Laboratory [facility], [address] [phone] [address] 05/23/2023 9:30 AM EST Office Visit Hematology/Oncology [facility] [address] [facility] [place] [address] Fernanda Taylor CRNP [address] [place] [address] 05/23/2023 10:00 AM EST Hem/Onc Treatment Hematology/Oncology Treatment, [place] [address] [facility] [place] [address] Chandrika, Chair 5 Hem Onc [facility] [address] [facility] [place] [address] 06/11/2023 8:20 AM EST Office Visit [facility] [address] [facility] [phone] Chema Combs MD [address] [place] [address] 09/19/2023 1:30 PM EDT Office Visit Cardiology, [facility] [address] [place] [address] Prashant Ruiz, [address] [place] [address] Scheduled Procedures Name Priority Associated Diagnoses Date/Ti [...] history exists B-12 05/01/2024 05/01/2023, 12/11/2022 GFR 05/08/2024 05/08/2023, 10/2022, 04/19/2023, Additional history exists O2 ASSESSMENT COMPLETED IN PAST YEAR FOR COPD 05/09/2024 05/09/2023 Colonoscopy 07/06/2026 07/06/2016, 07/06/2016 Colorectal Cancer Screening [...] 08/29/2016 LUNG CANCER SCREENING - USE SMARTSET [id number] Completed 10/01/2017 Zoster Vaccines Completed 12/14/2019, 09/24, [...] this encounter Medical Devices Implanted Type Area Audio Visual Secretary Device Identifier Shelf Expiration Date Model / Serial / Lot Port Implant W/8f Poly Cath - [id number] Implanted:Qty : 1 on 02/12/2023 at [facility] Right: Chest CR BARD : PERIPHERAL VASCULAR [id number] 04/25/2024 [id number] / / [id number] documented as of this encounter Advance Directives Latest Code Status on File Code Status Date Activated Date Inactivated Comments Full Code 12/27/2022 3:40 PM 01/01/2023 8:39 PM This or aj reflects the patients wishes and were consensually agreed upon. Question Answer Comments Discussion of Advance Directives occurred with: Patient Care Teams Pediatric Urologist Relationship Specialty Start Date End Date Chema Combs MD [address] [place] [address] PCP - General Family Medicine 07/02/18 documented as of this encounter
--- OUTSIDE RECORDS SUMMARY | 2023-05-22 14:49 | External Medical Summary | Summary of Care ---
Author Name Unknown Organization [facility] Address [address] [facility] [place] [address] Phone [phone] Care Team Providers Care Principal Security Architect Name Role Phone Chema Combs MD Primary Care Provider [phone] Reason for Visit * Reason Comments Chemotherapy C4d8 Gemzar/Cisplati n * Episode Based Medications (Routine) - Authorized Specialty Diagnoses / Procedures Referred By Contac t Referred To Contact Diagnoses Encounter for antineoplastic chemotherapy Gall bladder disease Carcinoma of gallbladder (HCC) Procedures ID CISPLATIN 10 MG INJECTION ID FOSAPREPITANT INJECTION ID IN GEMCITABINE HCL NOS 200MG ID INJ., DURVALUMAB, 10 MG Scout Huddleston MD [address] [place] [address] Anc Hem/Onc Scenery Chandrika DEPT CLOSED - 04/09/23 [address] [place] [address] Referral ID Status Reason Start Date Expiration Date V isits Requested Visits Authorized [id number] Authorized 01/17/2023 01/18/2024 999 99 Encounter Details Date Type Department Care Team (Latest Contact Info) Description 05/09/2023 9:30 AM EST Hem/Onc Treatment Hematology/Oncolog y Treatment, [place] [address] [place] [address] Chandrika, Chair 7 Hem Onc Scenery [address] [place] [address] Encounter for antineoplastic chemotherapy*; Gall bladder disease; Carcinoma of gallbladder (HCC) Allergies Active Allergy Reactions Criticality Noted Date Comments Lisinopril Cough Low 08/18/2009 documented as of this encounter (statuses as of 05/09/2023) Medications Medication Sig Dispensed Refills Start Date [...] as of this encounter (statuses as of 05/09/2023) Active Problems Problem Noted Date Diagnosed Date [...] as of this encounter (statuses as of 05/09/2023) Resolved Problems Problem Noted Date Diagnosed Date [...] as of this encounter (statuses as of 05/09/2023) Immunizations Name Administration Dates Next Due COVID-19 [...] on file documented as of this encounter Last Filed Vital Signs Vital Sign Reading Time Taken Comments Blood Pressure 149/85 05/09/2023 9:35 AM EST Pulse 81 05/09/2023 9:35 AM EST Temperature 36.3 C (97.4 F) 05/09/2023 9:35 AM ES T Respiratory Rate 18 05/09/2023 9:35 AM EST Oxygen Saturation 93% 05/09/2023 9:35 AM EST Inhaled Oxygen Concentration - - Weight 107.5 kg (237 lb) 05/09/2023 9:35 AM EST Height - - Body Mass Index 32.14 04/10/2023 10:54 AM EST documented in this encounter Functional Status Functional Status Response [...] No 12/27/2022 documented as of this encounter Nursing Notes * Jackelyn Daniels RN - 05/09/2023 3:48 PM EST Functional status at today's visit: Fully active, able to carry on all pre-disease performance without restriction The drug name, dose, infusion volume, rate and route of administration, expiration date and time, appearance and physical integrity of the drug and rate set on the pump and sequencing of drug administration (as applicable) were verified by me and second sign-in RN. Patient was assessed for symptoms or adverse side effects during treatment. Goals: Patient will remain free from injury. Possible barriers to meeting goals: ambulation with IV pole Stability of the patient: Moderately stable - low risk of patient condition declining or worsening Summary regarding today's goals: Met: Pt remained free of injury during treatment Patient tolerated treatment well and was discharged in stable condition. Coverage by Usama Lynne LPN. * Jackelyn Daniels RN - 05/09/2023 2:34 PM EST Chair 1, present. Chemo agents Gemzar/Cisplatin Appetite good Nausea/Vomiting no Diarrhea no Constipation no Mucositis no Fatigue yes, rests as needed Bleeding no Infection no Rash no Numbness tingling no Pain no but has some soreness in his left neck/shoulder area, has been to chiropractor for tthis Radiation no ABN Labs WNL for treatment Alt in Tx: no Return in 2 weeks VAD accessed without difficulty, good blood return noted, flushed with NSS and fluids infusing. Safety and Risk for Injury Patient will remain free from injury. Ensure appropriate safety devices are available. Provide and maintain safe environment. documented in this encounter Plan of Treatment Upcoming Encounters Date Type Department Care Team (Late st Contact Info) Description 05/22/2023 9:30 AM EST Laboratory Laboratory Patient [address] [place] [phone] [address] [address] 05/23/2023 9:30 AM EST Office Visit Hematology/Oncology [facility] [place] [facility] [address] Fernanda Taylor CRNP [address] [place] [address] 05/23/2023 10:00 AM EST Hem/Onc Treatment Hematology/Oncology Treatment, [place] [address] [place] [address] Chandrika, Chair 5 Hem Onc Scenery [address] [place] [address] 06/11/2023 8:20 AM EST Office Visit [facility] [address] [place] [phone] Chema Combs MD [address] [place] [address] 09/19/2023 1:30 PM EDT Office Visit Cardiology, [facility] [address] [place] [address] Prashant Ruiz, [address] [place] [address] Scheduled Procedures Name Priority Associated Diagnoses Date/Ti [...] Additional history exists B-12 05/01/2024 05/01/2023, 12/11/2022 O2 ASSESSMENT COMPLETED IN PAST YEAR FOR COPD 05/02/2024 05/02/2023 GFR 05/08/2024 05/08/2023, 12/0 10/2022, 04/19/2023, Additional history exists Colonoscopy 07/06/2026 07/06/2016, 07/06/2016 Colorectal Cancer Screening [...] 08/29/2016 LUNG CANCER SCREENING - USE SMARTSET [id number] Completed 10/01/2017 Zoster Vaccines Completed 12/14/2019, 09/24, [...] this encounter Medical Devices Implanted Type Area Circulation Man Device Identifier Shelf Expiration Date Model / Serial / Lot Port Implant W/8f Poly Cath - [id number] Implanted:Qty : 1 on 02/12/2023 at [facility] Right: Chest CR BARD : PERIPHERAL VASCULAR [id number] 04/25/2024 [id number] / / [id number] documented as of this encounter Visit Diagnoses Diagnosis Encounter for antineoplastic chemotherapy- Primary Gall bladder disease Unspecified disorder of gallbladder Carcinoma of gallbladder (HCC) Malignant neoplasm of gallbladder documented in this encounter Administered Medications Active Administered Medications - up to 3 most recent administrations Medication Order MAR Action Action Date Dose Rate Site diphenhydrAMINE (Benadryl) inj 50 mg 50 mg, IV Push, ONCE PRN Other, Hypersensitivity Reaction, Starting on Tran 05/09/23 at 0941, Until Sat05/10/23 at 0940, For 24 hours EPINEPHrine 1 MG/ML inj 0.3 mg 0.3 mg, Intramuscular, ONCE PRN Other, Hypersensitivity Reaction or Anaphylaxis, Starting on Tran 05/09/23 at 0941, Until Sat05/10/23 at 0940, For 24 hours hEParin 100 UNIT/ML Lock Flush inj 500 Units 500 Units (5 mL), IV Lock, PRN Other, IV Flush, Starting on Tran 05/09/23 at 0941, Until Sat05/10/23 at 0940, For 24 hours, Do not flush if lock, PICC, or central line not in place; IV infusing or unable to flush. Given 05/09/2023 3:11 PM EST 500 Units Hydrocortisone Sod Suc (PF) (Solu-Cortef) inj 100 mg 100 mg, IV Push, ONCE PRN Other, Hypersensitivity Reaction, Starting on Sat05/09/23 at 0941, Until Sat05/10/23 at 0940, For 24 hours NSS 1,000 mL with magnesium sulfate 1 g infusion Intravenous, at 500 mL/hr Administer over 2 Hours, Post-cisplatin hydration, CONTINUOUS, Starting on Tran 05/09/23 at 1215, Until Discontinued Start Infusion 05/09/2023 1:09 PM EST 500 mL/hr NSS infusion 500 mL, Intravenous, at 50 mL/hr, CONTINUOUS, Starting on Tran 05/09/23 at 1045, Until Tran 05/09/23 at 2044 Start Infusion 05/09/2023 9:50 AM EST 500 mL 50 mL/hr oxygen GAS Inhalation, OXYGEN, First dose on Tran 05/09/23 at 1015, Until Discontinued, Device/Managed by: Low Flow Device, Goal SPO2 (%): 91-95, Starting Device: Nasal Cannula, Initial Flow Rate (LPM): 2, Lowest Support: Nasal Cannula: Flow 0-6 LPM. Titrate up/down by 1 LPM., Higher Support: Non-Rebreather (NRB) Mask: Minimum of 10 LPM. Titrate to maintain bag inflation., Titration Interval: Q2 minutes and as needed., Notify Provider: For sudden DECREASE in resting SPO2 to less than 85% and when escalating delivery device. sodium chloride 0.9 % flush central line 10 mL 10 mL, IV Push, PRN Other, IV Flush, Starting on Sat05/09/23 at 0941, Until Sat05/10/23 at 0940, For 24 hours, Do not flush if lock, PICC, or central line not in place; IV infusing or unable to flush. Given 05/09/2023 3:11 PM EST 10 mL Inactive Administered Medications - up to 3 most recent administrations Medication Order MAR Action Action Date Dose Rate Site CISplatin (Platinol) 58 mg in NSS 500 mL infusion 58 mg (25 mg/m2 2.32 m2 Treatment Plan BSA from Recorded weight), IV Piggyback, Administer over 60 Minutes, PROTECT FROM LIGHT, ONCE, 1 dose, On Sat05/09/23 at 1115 Start Infusion 05/09/2023 11:54 AM EST 58 mg 500 mL/hr Fosaprepitant Dimeglumine (Emend) 150 mg, ondansetron (Zofran) 16 mg, dexamethasone sodium phosphate 12 mg in NSS 250 mL Infusion 150 mg, IV Piggyback, ONCE, 1 dose, On Sat05/09/23 at 1045, Administer over 30 Minutes, Give 30 minutes prior to chemotherapy. Infuse over 30 minutes. Start Infusion 05/09/2023 10:31 AM EST 150 mg 500 mL/hr gemcitabine (Gemzar) 2,400 mg in NSS 250 mL infusion 2,400 mg (rounded from 2,320 mg = 1,000 mg/m2 2.32 m2 Treatment Plan BSA from Recorded weight), IV Piggyback, ONCE, 1 dose, On Sat05/09/23 at 1115, Administer over 30 Minutes Start Infusion 05/09/2023 11:03 AM EST 2,400 mg 500 mL/hr NSS infusion FOR HYDRATION Intravenous, at 500 mL/hr Administer over 2 Hours, ONCE, 1 dose, On Sat05/09/23 at 1015 Start Infusion 05/09/2023 9:50 AM EST 1,000 mL 500 mL/hr potassium chloride ER tab 20 mEq 20 mEq, Oral, ONCE, On Sat05/09/23 at 1215, For 1 dose, This med should NOT be Crushed or Chewed Give with post-hydration. Hold if serum potassium is greater than or equal to 5 mmol/L. Given 05/09/2023 1:09 PM EST 20 mEq documented in this encounter Advance Directives Latest Code Status on File Code Status Date Activated Date Inactivated Comments Full Code 12/27/2022 3:40 PM 01/01/2023 8:39 PM This or aj reflects the patients wishes and were consensually agreed upon. Question Answer Comments Discussion of Advance Directives occurred with: Patient Care Teams Principal Security Architect Relationship Specialty Start Date End Date Chema Combs MD [address] [place] [address] PCP - General Family Medicine 07/02/18 documented as of this encounter
--- OUTSIDE RECORDS SUMMARY | 2023-05-22 14:49 | External Medical Summary ---
Author Name Unknown Address Unknown Organization K01:[facility] [place] - [address] [place] [address] Laboratory Report Ordering Provider Test Date Status MARLON ORTEGA 05/08/2023 08:55:59 Final Observation Date Value Abnormality Reference (Units ) Status Magnesium 05/08/2023 08:55:59 1.4 Below low normal 1.5 -2.6 (mg/dL) Final Performing Location [facility] - [address] [place] [address]
--- OUTSIDE RECORDS SUMMARY | 2023-05-22 14:49 | External Medical Summary | Summary of Care ---
Author Name Unknown Organization [facility] Address [address] [facility] [address] Phone [phone] Care Team Providers Care Manager Perioperative Name Role Phone Chema Combs MD Primary Care Provider [phone] Reason for Visit * Reason Comments Chemotherapy Imfinzi/Gemzar/Cispl atin D1C4 * Episode Based Medications (Routine) - Authorized Specialty Diagnoses / Procedures Referred By Contac t Referred To Contact Diagnoses Encounter for antineoplastic chemotherapy Gall bladder disease Carcinoma of gallbladder (HCC) Procedures MD CISPLATIN 10 MG INJECTION MD FOSAPREPITANT INJECTION MD IN GEMCITABINE HCL NOS 200MG MD INJ., DURVALUMAB, 10 MG Scout Huddleston MD [address] [place] [address] Anc Hem/Onc Jonas Cobos DEPT CLOSED - 04/09/23 [address] [place] [address] Referral ID Status Reason Start Date Expiration Date V isits Requested Visits Authorized [id number] Authorized 01/17/2023 01/18/2024 999 99 Encounter Details Date Type Department Care Team (Latest Contact Info) Description 05/02/2023 10:00 AM EST Hem/Onc Treatment Hematology/Oncolog y Treatment, [place] [address] [place] [address] Encounter for antineoplastic chemotherapy*; Gall bladder disease; Carcinoma of gallbladder (HCC) Allergies Active Allergy Reactions Criticality Noted Date Comments Lisinopril Cough Low 08/18/2009 documented as of this encounter (statuses as of 05/02/2023) Medications Medication Sig Dispensed Refills Start Date [...] as of this encounter (statuses as of 05/02/2023) Active Problems Problem Noted Date Diagnosed Date [...] as of this encounter (statuses as of 05/02/2023) Resolved Problems Problem Noted Date Diagnosed Date [...] as of this encounter (statuses as of 05/02/2023) Immunizations Name Administration Dates Next Due COVID-19 [...] Influenza, Quadriva lent,with Preserve, 3 yr & Above, IM 03/11/2017 Seasonal Influenza, Split, I IV3, [...] Sign Reading Time Taken Comments Blood Pressure 129/71 05/02/2023 10:52 AM EST Pulse 77 05/02/2023 10:52 AM EST Temperature - - Respiratory Rate - - Oxygen Saturation - - Inhaled Oxygen Concentration - - Weight - - Height - - Body Mass Index - - documented in this encounter Functional Status Functional [...] as of this encounter Nursing Notes * Anh Alfonso, LAMAR - 05/02/2023 4:51 PM EST Functional status at today's visit: Restricted in physically strenuous activity but ambulatory and able to carry out work on a light orsedentary nature, e.g. light house work, office work The drug name, dose, infusion volume, rate and route of administration, expiration date and time, appearance and physical integrity of the drug and rate set on the pump and sequencing of drug administration (as applicable) were verified by me and second sign-in RN. Patient was assessed for symptoms or adverse side effects during treatment. Pt completed treatment without issues. VAD flushed with 10 ml NSS and Heparin 5 ml (100 units/ml). Luong needle removed intact. Goals: PT will remain free from injury. Possible barriers to meeting goals: ambulation with IV pole, pt is a high fall risk Stability of the patient: Moderately stable - low risk of patient condition declining or worsening Summary regarding today's goals: Met: Pt remained free from injury during treatment today. Discharged in stable condition. No coverage. * Anh Alfonso RN - 05/02/2023 10:52 AM EST Chair 3, Imfinzi/Gemzar/Cisplatin D1C4. Pt seen by LATRICE Krishnamurthy; refer to OV notes. Labs okay to proceed with treatment as ordered. VAD accessed; NSS infusing. Safety and Risk for Injury Patient will remain free from injury. Ensure appropriate safety devices are available. Provide and maintain safe environment. documented in this encounter Plan of Treatment Upcoming Encounters Date Type Department Care Team (Late st Contact Info) Description 05/08/2023 9:00 AM EST Laboratory [facility], [address] [phone] [place], [facility] [address] [place] [address] 05/09/2023 9:30 AM EST Hem/Onc Treatment Hematology/[facility]cology Treatment, [place] [address] [facility] [address] Chandrika, Chair 7 Hem Onc Scenery [address] [place] [address] 05/22/2023 9:30 AM EST Laboratory [facility], [place] [address] [place] [phone] [place], [facility] [place] [address] [place] [address] [place] [address] 05/23/2023 9:30 AM EST Office Visit Hematology/Oncology [facility] [address] [place] [address] Fernanda Taylor CRNP [address] [place] [address] 05/23/2023 10:00 AM EST Hem/Onc Treatment Hematology/Oncology Treatment, [place] [address] [place] [address] Chandrika, Chair 1 Hem Onc [facility] [address] [facility] [place] [address] 06/11/2023 8:20 AM EST Office Visit [facility] [address] [place] [phone] Chema Combs MD [address] [place] [address] 09/19/2023 1:30 PM EDT Office Visit Cardiology, [facility] [address] [place] [address] Prashant Ruiz, [address] [facility] [address] Scheduled Orders Name Type Priority Associated Diagnoses Orde r Schedule TSH WITH FREE T4 IF INDICATED Lab STAT Encounter for antineoplastic chemotherapy Gall bladder disease Carcinoma of gallbladder (HCC) Expected: 05/02/2023 (Approximate), Expires: 10/29/2023 GLUCOSE Lab STAT Encounter for antineoplastic chemotherapy Gall bladder disease Carcinoma of gallbladder (HCC) Expected: 05/02/2023 (Approximate), Expires: 10/29/2023 Scheduled Procedures Name Priority Associated Diagnoses Date/Ti [...] 08/29/2016 LUNG CANCER SCREENING - USE SMARTSET [id number] Completed 10/01/2017 Zoster Vaccines Completed 12/14/2019, 09/24, [...] this encounter Medical Devices Implanted Type Area Fabric Sourcer Device Identifier Shelf Expiration Date Model / Serial / Lot Port Implant W/8f Poly Cath - [id number] Implanted:Qty : 1 on 02/12/2023 at [facility] Right: Chest CR BARD : PERIPHERAL VASCULAR [id number] 04/25/2024 [id number] / / [id number] documented as of this encounter Visit Diagnoses [...] PRN Other, Hypersensitivity Reaction, Starting on Tran 05/02/23 at 1002, Until Sat05/03/23 at 1001, For 24 hours EPINEPHrine 1 MG/ML inj 0.3 mg 0.3 mg, Intramuscular, ONCE PRN Other, Hypersensitivity Reaction or Anaphylaxis, Starting on Tran 05/02/23 at 1002, Until Sat05/03/23 at 1001, For 24 hours hEParin 100 UNIT/ML Lock Flush inj 500 Units 500 Units (5 mL), IV Lock, PRN Other, IV Flush, Starting on Tran 05/02/23 at 1002, Until Sat05/03/23 at 1001, For 24 hours, Do not flush if lock, PICC, or central line not in place; IV infusing or unable to flush. Given 05/02/2023 4:24 PM EST 500 Units Hydrocortisone Sod Suc (PF) (Solu-Cortef) inj 100 mg 100 mg, IV Push, ONCE PRN Other, Hypersensitivity Reaction, Starting on Tran 05/02/23 at 1002, Until Sat05/03/23 at 1001, For 24 hours NSS 1,000 mL with magnesium sulfate 1 g infusion Intravenous, at 500 mL/hr Administer over 2 Hours, Post-cisplatin hydration, CONTINUOUS, Starting on Tran 05/02/23 at 1245, Until Discontinued Start Infusion 05/02/2023 2:21 PM EST 500 mL/hr NSS infusion 500 mL, Intravenous, at 50 mL/hr, CONTINUOUS, Starting on Tran 05/02/23 at 1115, Until Tran 05/02/23 at 2114 Start Infusion 05/02/2023 10:20 AM EST 500 mL 50 mL/hr oxygen GAS Inhalation, OXYGEN, First dose on Tran 05/02/23 at 1045, Until Discontinued, Device/Managed by: Low Flow Device, [...] Push, PRN Other, IV Flush, Starting on Sat05/02/23 at 1002, Until Sat05/03/23 at 1001, For 24 hours, Do not flush if lock, PICC, or central line not in place; IV infusing or unable to flush. Given 05/02/2023 4:24 PM EST 10 mL Inactive Administered Medications - up to 3 most recent administrations Medication Order MAR Action Action Date Dose Rate Site CISplatin (Platinol) 58 mg in NSS 500 mL infusion 58 mg (25 mg/m2 2.32 m2 Treatment Plan BSA from Recorded weight), IV Piggyback, Administer over 60 Minutes, PROTECT FROM LIGHT, ONCE, 1 dose, On Sat05/02/23 at 1145 Start Infusion 05/02/2023 1:11 PM EST 58 mg 500 mL/hr Durvalumab (Imfinzi) 1,500 mg in NSS 250 mL infusion 1,500 mg, IV Piggyback, ONCE, 1 dose, On Sat05/02/23 at 1045, Administer over 60 Minutes, Administer through 0.22 micron low protein binding filter! Final Concentration between 1-15 mg/mL Start Infusion 05/02/2023 11:19 AM EST 1,500 mg 250 mL/hr Fosaprepitant Dimeglumine (Emend) 150 mg, ondansetron (Zofran) 16 mg, dexamethasone sodium phosphate 12 mg in NSS 250 mL Infusion 150 mg, IV Piggyback, ONCE, 1 dose, On Sat05/02/23 at 1115, Administer over 30 Minutes, Give 30 minutes prior to chemotherapy. Infuse over 30 minutes. Start Infusion 05/02/2023 10:37 AM EST 150 mg 500 mL/hr gemcitabine (Gemzar) 2,400 mg in NSS 250 mL infusion 2,400 mg (rounded from 2,320 mg = 1,000 mg/m2 2.32 m2 Treatment Plan BSA from Recorded weight), IV Piggyback, ONCE, 1 dose, On Tran 05/02/23 at 1145, Administer over 30 Minutes Start Infusion 05/02/2023 12:34 PM EST 2,400 mg 500 mL/hr NSS infusion FOR HYDRATION Intravenous, at 500 mL/hr Administer over 2 Hours, ONCE, 1 dose, On Tran 05/02/23 at 1045 Start Infusion 05/02/2023 10:21 AM EST 1,000 mL 500 mL/hr potassium chloride ER tab 20 mEq 20 mEq, Oral, ONCE, On Tran 05/02/23 at 1245, For 1 dose, This med should NOT be Crushed or Chewed Give with post-hydration. Hold if serum potassium is greater than or equal to 5 mmol/L. Given 05/02/2023 2:22 PM EST 20 mEq documented in this encounter Advance Directives Latest Code Status on File Code Status Date Activated Date Inactivated Comments Full Code 12/27/2022 3:40 PM 01/01/2023 8:39 PM This or aj reflects the patients wishes and were consensually agreed upon. Question Answer Comments Discussion of Advance Directives occurred with: Patient Care Teams Manager Perioperative Relationship Specialty Start Date End Date Chema Combs MD [address] [place] [address] PCP - General Family Medicine 07/02/18 documented as of this encounter
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
--- OUTSIDE RECORDS SUMMARY | 2023-05-22 14:49 | External Medical Summary ---
Author Name Unknown Address Unknown Organization [id number]:LABORATORY [facility] [place] - [address] [place] [id number] Laboratory Report Ordering Provider Test Date Status MARLON ORTEGA 05/08/2023 08:55:59 Final Observation Date Value Abnormality Reference (Units ) Status T4, Free 05/08/2023 08:55:59 1.2 0.9-1.7 (n g/dL) Final Performing Location LABORATORY [facility] - [address] [place] [id number]
--- OUTSIDE RECORDS SUMMARY | 2023-05-22 14:49 | External Medical Summary ---
Author Name Unknown Address Unknown Organization [id number]:LABORATORY [facility] [place] - [address] [place] [address] Laboratory Report Ordering Provider Test Date Status MARLON ORTEGA 05/08/2023 08:55:59 Final Observation Date Value Abnormality Reference (Units ) Status TSH 05/08/2023 08:55:59 4.35 Above high normal 0. 27-4.20 (uIU/mL) Final Performing Location LABORATORY [facility] [place] - [address] [place] [address]
--- OUTSIDE RECORDS SUMMARY | 2023-05-22 14:49 | External Medical Summary ---
Author Name Unknown Address Unknown Organization [id number]:[facility] [place] [address] [facility] [place] [id number] Laboratory Report Ordering Provider Test Date Status MARLON ORTEGA 05/08/2023 08:55:59 Final Observation Date Value Abnormality Reference (Units ) Status SYNC LEUKOCYTES IN BLOOD BY AUTOMATED COUNT 05/08/2023 08:55:59 19.54 Above high normal 4.00-10.80 (K/uL) Final Segs 05/08/2023 08:55:59 14.3 Below low normal 40.0-75.0 (%) Final Lymphs % 05/08/2023 08:55:59 81.7 Above high normal 18.0-42.0 (%) Final Monos 05/08/2023 08:55:59 1.4 1.0-11.0 (%) Final Eosinophils 05/08/2023 08:55:59 1.0 0.0-6.0 (%) Final Basos 05/08/2023 08:55:59 0.5 0.0-2.0 (%) Final Immature Granulocyte, Percent 05/08/2023 08:55:59 1.1 0.0-2.0 (%) Final Absolute Segs 05/08/2023 08:55:59 2.80 1.80-7.70 (K/uL) Final Lymphs, absolute 05/08/2023 08:55:59 15.97 Above high normal 1.00-4.80 (K/ul) Final Monos, Abs 05/08/2023 08:55:59 0.28 0.00-1.10 (K/uL) Final Eos, Abs 05/08/2023 08:55:59 0.19 0.00-0.70 (K/uL) Final Basos, Abs 05/08/2023 08:55:59 0.09 0.00-0.20 (K/uL) Final Immature Granulocytes, Number 05/08/2023 08:55:59 0.21 Above high normal 0.00-0.20 (K/uL) Final Performing Location [facility] [place] [address] [facility] [id number]
--- OUTSIDE RECORDS SUMMARY | 2023-05-22 14:49 | External Medical Summary ---
Author Name Unknown Address Unknown Organization [id number]:LABORATORY [facility] - [address] [place] [id number] Laboratory Report Ordering Provider Test Date Status MARLON ORTEGA 05/22/2023 09:14:26 Final Observation Date Value Abnormality Reference (Units ) Status WBC, Total 05/22/2023 09:14:26 11.95 Above high normal 4 .00-10.80 (K/uL) Final RBC 05/22/2023 09:14:26 1.97 4.50-5.25 (M/uL) Final Hemoglobin 05/22/2023 09:14:26 7.0 Below low normal 14 .0-16.8 (g/dL) Final HCT 05/22/2023 09:14:26 21.4 Below low normal 40. 0-48.4 (%) Final MCV 05/22/2023 09:14:26 108.6 82.0-99.5 (fL) Final MCH 05/22/2023 09:14:26 35.5 27.0-34.0 (pg) Final MCHC 05/22/2023 09:14:26 32.7 32.0-36.0 (g/dL) Final RDW 05/22/2023 09:14:26 21.1 11.5-15.5 (%) Final Platelets 05/22/2023 09:14:26 324 140-400 (K /uL) Final MPV 05/22/2023 09:14:26 9.2 6.6-11.1 ( fL) Final [facility] [address] [place] [id number]
--- OUTSIDE RECORDS SUMMARY | 2023-05-22 14:49 | External Medical Summary | Summary of Care ---
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) Allergies Active Allergy Reactions Criticality Noted Date Comments Lisinopril Cough Low 08/18/2009 documented as of this encounter (statuses as of 05/22/2023) Medications Medication Sig Dispensed Refills Start Date [...] CD)Indications:HTN, goal below 150/90,PAF (paroxysmal atrial fibrillation) ([facility]) TAKE 1 CAPSULE BY MOUTH EVERY DAY [...] as of this encounter (statuses as of 05/22/2023) Active Problems Problem Noted Date Diagnosed Date [...] as of this encounter (statuses as of 05/22/2023) Resolved Problems Problem Noted Date Diagnosed Date [...] as of this encounter (statuses as of 05/22/2023) Immunizations Name Administration Dates Next Due COVID-19 [...] Upcoming Encounters Date Type Department Care Team (Latest Contact Info) Description 05/22/2023 10:00 AM EST Office Visit Cardiology, [facility] [address] [facility] [place] [address] Rona Quinn CRNP [address] [facility] [place] [address] PAF (paroxysmal atrial fibrillation) (HCC)*; HTN, goal below 140/90; Dyslipidemia, goal LDL below 100; Bilateral lower extremity edema 05/23/2023 9:30 AM EST Office Visit Hematology/Oncology [facility] [address] [facility] [place] [address] Fernanda Taylor CRNP [address] [facility] [place] [address] 05/23/2023 10:00 AM EST Hem/Onc Treatment Hematology/Oncology Treatment, [place] [address] [place] [address] Chandrika, Chair 5 Hem Onc [address] [place] [address] 06/11/2023 8:20 AM EST Office Visit [facility] [address] [place] [facility] [place] [phone] Chema Combs MD [address] [place] [address] 09/19/2023 1:30 PM EDT Office Visit Cardiology, [facility] [address] [place] [address] Prashant Ruiz, [address] [place] [address] Pending Results Name Type Priority Associated Diagnoses Date /Time COMPREHENSIVE METABOLIC PANEL Lab STAT Gall bladder disease 05/22/2023 9:14 AM EST TSH WITH FREE T4 IF INDICATED Lab STAT Gall bladder disease 05/22/2023 9:14 AM EST MAGNESIUM Lab STAT 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) 05/22/2023 9:14 AM EST Scheduled Procedures Name Priority Associated [...] B-12 05/01/2024 05/01/2023, 12/11/2022 GFR 05/08/2024 05/08/2023, 12/10/2022, 04/19/2023, Additional history exists O2 ASSESSMENT COMPLETED [...] 08/29/2016 LUNG CANCER SCREENING - USE SMARTSET [id number] Completed 10/01/2017 Zoster Vaccines Completed 12/14/2019, 09/24, [...] this encounter Medical Devices Implanted Type Area Hair Specialist Device Identifier Shelf Expiration Date Model / Serial / Lot Port Implant W/8f Poly Cath - [id number] Implanted:Qty : 1 on 02/12/2023 at [facility] Right: Chest CR BARD : PERIPHERAL VASCULAR [id number] 04/25/2024 [id number] / / [id number] documented as of this encounter Procedures Procedure Name Priority Date/Time Associated Diagnosis Comments DIFFERENTIAL, AUTOMATED STAT 05/22/2023 9:14 AM EST Gall bladder disease CBC STAT 05/22/2023 9:14 AM EST Gall bladder disease CBC STAT 05/22/2023 9:14 AM EST Gall bladder disease DIFFERENTIAL, TECHNOLOGIST REVIEW Routine 05/22/2023 9:14 AM EST Gall bladder disease documented in this encounter Results * (ABNORMAL) DIFFERENTIAL, TECHNOLOGIST REVIEW (05/22/2023 9:14 AM EST) WBC 11.95(H) 4.00 - 10.80 K/uL 05/22/2023 9:28 AM EST [facility] [place] 57-10 Neutrophils % 21.0(L) 40.0 - 75.0 % 05/22/2023 9:28 AM EST [facility] [place] 57-10 Lymphocytes % 64.0(H) 18.0 - 42.0 % 05/22/2023 9:28 AM EST [facility] [place] 57-10 Monocytes % 11.0 1.0 - 11.0 % 05/22/2023 9:28 AM EST [facility] [place] 57-10 Eosinophils % 3.0 0.0 - 6.0 % 05/22/2023 9:28 AM EST [facility] [place] 57-10 Metamyelocytes % 1.0(H) <=0.0 % 05/22/20 9:28 AM EST [facility] [place] 57-10 Absolute Neutrophils 2.51 1.80 - 7.70 K/uL 05/22/2023 9:28 AM EST [facility] [place] 57-10 Absolute Lymphocytes 7.65(H) 1.00 - 4.80 K/uL 05/22/2023 9:28 AM EST [facility] [place] 57-10 Absolute Monocytes 1.31(H) 0.00 - 1.10 K/uL 05/22/2023 9:28 AM EST [facility] [place] 57-10 Absolute Eosinophils 0.36 0.00 - 0.70 K/uL 05/22/2023 9:28 AM EST [facility] [place] 57-10 Absolute Metamyelocytes 0.12(H) <=0.00 K/uL 05/22/2023 9:28 AM EST [facility] [place] 57-10 nRBCs 05/22/2023 9:28 AM EST [facility] [place] 57-10 Reactive Lymphocytes Present(A ) None Seen 05/22/2023 9:28 AM EST [facility] [place] 57-10 Smudge Cells Present(A ) None Seen 05/22/2023 9:28 AM EST [facility] [place] 57-10 Blood Venous blood specimen / Unknown Venipuncture / Unknown 05/22/2023 9:14 AM EST 05/22/2023 9:14 AM EST [place] Lion Flaquito PINZON LAB BLOOD ORDERA BLES [facility] [place] 57-10 [address] [place] [address] * DIFFERENTIAL, AUTOMATED (05/22/2023 9:14 AM EST) Blood Venous blood specimen / Unknown Venipuncture / Unknown 05/22/2023 9:14 AM EST 05/22/2023 9:14 AM EST Scout Huddleston MD LAB BLOOD ORDERA BLES LAB[facility] 57[facility]10 [address] [place] [address] * (ABNORMAL) CBC (05/22/2023 9:14 AM EST) WBC 11.95(H) 4.00 - 10.80 K/uL 05/22/2023 9:28 AM EST [facility] 57-10 RBC 1.97 4.50 - 5.25 M/uL 05/22/2023 9:28 AM EST [facility] 57-10 HGB 7.0(L) 14.0 - 16.8 g/dL 05/22/2023 9:28 AM EST [facility] HCT 21.4(L) 40.0 - 48.4 % 05/22/2023 9:28 AM EST [facility] MCV 108.6 82.0 - 99.5 fL 05/22/2023 9:28 AM EST [facility] MCH 35.5 27.0 - 34.0 pg 05/22/2023 9:28 AM EST [facility] MCHC 32.7 32.0 - 36.0 g/dL 05/22/2023 9:28 AM EST [facility] RDW 21.1 11.5 - 15.5 % 05/22/2023 9:28 AM EST [facility] PLT 324 140 - 400 K/uL 05/22/2023 9:28 AM EST [facility] MPV 9.2 6.6 - 11.1 fL 05/22/2023 9:28 AM EST [facility] Blood Venous blood specimen / Unknown Venipuncture / Unknown 05/22/2023 9:14 AM EST 05/22/2023 9:14 AM EST Scout Huddleston MD LAB BLOOD ORDERA BLES [facility] 57-10 [address] [facility] [address] documented in this encounter Visit Diagnoses Diagnosis PAF (paroxysmal atrial fibrillation) (HCC)- Primary Atrial fibrillation HTN, goal below 140/90 Unspecified essential hypertension Dyslipidemia, goal LDL below 100 Other and unspecified hyperlipidemia Bilateral lower extremity edema Edema Gall bladder disease Unspecified disorder of gallbladder 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 Question Answer Comments Discussion of Advance Directives occurred with: Patient Care Teams Architectural Design Lecturer Relationship Specialty Start Date End Date Chema Combs [facility] [address] [facility] [address] PCP - General Family Medicine 07/02/18 documented as of this encounter
--- OUTSIDE RECORDS SUMMARY | 2023-05-22 14:50 | External Medical Summary ---
Author Name Unknown Address Unknown Organization [id number]:LABORATORY [facility] - [address] [place] [address] Laboratory Report Ordering Provider Test Date Status JIMILORIE 05/01/2023 09:19:07 Final Observation Date Value Abnormality Reference (Units ) Status Folic Acid 05/01/2023 09:19:07 8.2 >4.5 (ng/ mL) Final Performing Location LABORATORY [facility] - [address] [place] [address]
--- OUTSIDE RECORDS SUMMARY | 2023-05-22 14:50 | External Medical Summary ---
Author Name Unknown Address Unknown Organization [id number]:LABORATORY [facility] [place] - [address] [place] [address] Laboratory Report Ordering Provider Test Date Status MARLON ORTEGA 05/01/2023 09:19:07 Final Observation Date Value Abnormality Reference (Units ) Status Magnesium 05/01/2023 09:19:07 1.8 1.5-2.6 (m g/dL) Final Performing Location LAB[facility]ATORY [facility] - [address] [place] [address]
--- OUTSIDE RECORDS SUMMARY | 2023-05-22 14:50 | External Medical Summary ---
Author Name Unknown Address Unknown Organization [id number]:[facility]ORY [facility] [facility] [address] [facility] [place] [address] Laboratory Report Ordering Provider Test Date Status MARLON ORTEGA 05/01/2023 09:19:07 Final Observation Date Value Abnormality Reference (Units ) Status BUN 05/01/2023 09:19:07 33 Above high normal 6-20 (mg/dL) Final Creatinine 05/01/2023 09:19:07 1.3 Above high normal 0.6-1.2 (mg/dL) Final Glomerular filtration rate/1.73 sq M.predicted [Volume Rate/Area] in Serum, Plasma or Blood by Creatinine-based formula (CKD-EPI) 05/01/2023 09:19:07 56 Below low normal >=60 (mL/min) Final eGFR is calculated based on the CKD-EPI 2020 equation SODIUM 05/01/2023 09:19:07 139 135-146 (m mol/L) Final Potassium 05/01/2023 09:19:07 4.9 3.5-5.1 (m mol/L) Final Cl 05/01/2023 09:19:07 107 98-107 (mm ol/L) Final CO2 05/01/2023 09:19:07 23 22-32 (mmo l/L) Final Anion gap 05/01/2023 09:19:07 9 7-15 (mmol /L) Final Glucose 05/01/2023 09:19:07 140 Above high normal 70 -120 (mg/dL) Final Albumin 05/01/2023 09:19:07 4.1 3.8-5.0 (g /dL) Final AST (Aspartate aminotransferase) 05/01/2023 09:19:07 30 10-50 (U/L) Fin al Alk Phos 05/01/2023 09:19:07 138 Above high normal 35 -130 (U/L) Final Bilirubin, Total 05/01/2023 09:19:07 0.3 <=1 .2 (mg/dL) Final Calcium 05/01/2023 09:19:07 9.0 8.4-10.2 ( mg/dL) Final Protein 05/01/2023 09:19:07 5.7 Below low normal 6.0 -8.3 (g/dL) Final ALT (Alanine aminotransferase) 05/01/2023 09:19:07 20 10-50 (U/L) Donell matthew Performing Location LAB[facility]ORY [facility] - [address] [facility] [address]
--- OUTSIDE RECORDS SUMMARY | 2023-05-22 14:50 | External Medical Summary ---
Author Name Unknown Address Unknown Organization K01:LABORATORY [facility] [place] - [address] [address] Laboratory Report Ordering Provider Test Date Status JIMILORIE 05/01/2023 09:19:07 Final Observation Date Value Abnormality Reference (Units ) Status Ferritin 05/01/2023 09:19:07 635 Above high normal 30 -400 (ng/mL) Final Performing Location [facility] - [address] [place] [address]
--- OUTSIDE RECORDS SUMMARY | 2023-05-22 14:50 | External Medical Summary ---
Author Name Unknown Address Unknown Organization K01:LABORATORY [facility] [place] - [address] [place] [address] Laboratory Report Ordering Provider Test Date Status LORIE KRAUSE 05/01/2023 09:19:07 Final Observation Date Value Abnormality Reference (Units ) Status Iron 05/01/2023 09:19:07 119 45-176 (ug /dL) Final Iron-binding capacity 05/01/2023 09:19:07 282 250-425 (ug/dL) Final Transferrin Sat % 05/01/2023 09:19:07 42 15 -55 (%) Final Performing Location [facility] - [address] [place] [address]
--- OUTSIDE RECORDS SUMMARY | 2023-05-22 14:50 | External Medical Summary | Summary of Care ---
Author Name Unknown Organization [facility] Address [address] [facility] [address] Phone [phone] Care Team Providers Care Writing Center Director Name Role Phone Chema Combs MD Primary Care Provider [phone] Reason for Visit * Reason Onset Date Comments Advice 01/29/2023 Encounter Details Date Type Department Care Team (Late st Contact Info) Description 01/29/2023 Telephone Hematology/Oncology [facility] DE[facility] CLOSED - 04/09/23 [address] [place] [address] Scout Huddleston MD [address] [facility] [place] [address] Advice () Allergies Active Allergy Reactions Criticality Noted Date Comments Lisinopril Cough Low 08/18/2009 documented as of this encounter (statuses as of 04/30/2023) Medications Medication Sig Dispensed Refills Start Date End Date Status VITAMIN D 1000 UNITS PO CAPSIndications: Vitamin D deficiency Take 2 Capsules by mouth in the morning. 60 Cap 11 05/14/2014 Active Acetaminophen 500 MG Capsule Take 2 Capsules by mouth every 6 hours as needed for Fever >38C(100.5F) or Pain, Mild. 0 Active aspirin enteric coated 81 MG TBEC Take 1 Tablet by mouth in the morning. 0 Active Fluticasone-Umec lidin-Vilant 100-62.5-25 MCG/ACT Aerosol Powder Breath Activated Inhale 1 Puff by mouth in the morning. 0 Active allopurinol (ZYLOPRIM) 100 MG TabletIndication s:Chronic leukemia in remission (HCC),Elevated blood uric acid [...] Oral Capsule Extended Release 24 Hour (Cardizem CD)Indications:H TN, goal below 150/90,PAF (paroxysmal atrial fibrillation) ([facility]) TAKE 1 CAPSULE BY MOUTH EVERY DAY 90 Capsule 3 06/28/2022 Active Eliquis 5 MG Oral Tablet (Apixaban)Indica tions:PAF (paroxysmal atrial fibrillation) ([facility]) TAKE 1 TABLET BY MOUTH TWICE A DAY 180 Tablet 3 06/28/2022 Active Metoprolol Tartrate 50 MG Oral Tablet (Lopressor)Indic ations:HTN, goal below 150/90,PAF (paroxysmal atrial fibrillation) ([facility]) TAKE 1 TABLET BY MOUTH TWICE A DAY 180 Tablet 3 06/28/2022 Active Furosemide 20 MG Oral Tablet (Lasix)Indicatio ns:Localized edema Take 1 Tablet by mouth in the morning. 90 Tablet 1 01/10/2023 Active Ondansetron HCl 8 MG Oral TabletIndication s:Gall bladder disease Take 1 Tablet by mouth every 8 hours as needed for Nausea. 30 Tablet 0 01/16/2023 Active Prochlorperazine Maleate 10 MG Oral Tablet (Compazine)Indic ations:Gall bladder disease Take 1 Tablet by mouth every 6 hours as needed for Nausea. 30 Tablet 0 01/16/2023 Active Lidocaine-Priloc tobin 2.5-2.5 % External Cream (Emla)Indication s:Carcinoma of gall bladder (HCC) APPLY TO SKIN OVER MEDIPORT & COVER 1HR PRIOR TO ACCESSING. 30 g 1 01/24/2023 Active metFORMIN HCl ER 500 MG Oral Tablet Extended Release 24 Hour (Glucophage XR)Indications:P rediabetes Take by mouth 1 Tablet in the morning. 90 Tablet 3 01/17/2022 3 Discontinued Atorvastatin Calcium 20 MG Oral Tablet (Lipitor)Indicat ions:Dyslipidemi a, goal LDL below 100 Take by mouth 1 Tablet in the morning. 90 Tablet 3 01/17/2022 3 Discontinued oxyCODONE HCl 5 MG Oral Tablet (Oxy IR) Take 1 Tablet by mouth every 6 hours as needed for moderate pain 12 Tablet 0 01/01/2023 3 Discontinued documented as of this encounter (statuses as of 04/30/2023) Active Problems Problem Noted Date Diagnosed Date [...] as of this encounter (statuses as of 04/30/2023) Resolved Problems Problem Noted Date Diagnosed Date [...] as of this encounter (statuses as of 04/30/2023) Immunizations Name Administration Dates Next Due COVID-19 mRNA, LNP-s, No Pre serve, 2-Dose Series (Moderna) 08/01/2020,06/30/2020 COVID-19, mRNA, LNP-s, PF, B ooster, 100mcg/0.5mg (Moderna) 06/07/2021 Meningococcal Conjugate Vacc ine (Menactra/Menveo) 09/02/2015 Pneumococcal Conjugate Vacc, 13 Valent (Prevnar) 09/10/2015 Pneumococcal Polysaccharide PPV23 (Pneumovax) 08/28/2016,03/31/2008,03/25/2008 Seasonal Influenza Virus Vac cine, Unspecified Formulation 04/06/2022 Seasonal Influenza, Quadriva lent Hd, 65+ Yrs [...] No 12/27/2022 documented as of this encounter Miscellaneous Notes * Telephone Encounter - Maria T Wood RN - 01/29/2023 1:09 PM EDT There should be a locum there to complete procedure. Madyson: can you please reach out to patient. Thank you! * Telephone Encounter - Alanna Ambriz OSA - 01/29/2023 12:47 PM EDT Patient states that he is supposed to get scheduled to have a port placement. Patient states that he was told that the doctors at [facility] will be away and they are waiting for the other doctors to be able to schedule the port. Patient states that the person he had been speaking with wassupposed to send the request to [facility] as well. Patient would prefer not to wait to have the port place as he would like to start treatment as soon as possible. Patient would like to know if would be able to help with an appointment for the port or would recommend someplace else he couldgo to for the port. documented in this encounter Plan of Treatment Upcoming Encounters Date Type Department Care Team (Late st Contact Info) Description 05/01/2023 9:30 AM [facility] Laboratory Laboratory Patient Service [address] [place] [phone] Monica Morrow Lock [address] [place] [address] [facility] [place] [address] 05/02/2023 9:30 AM EST Office Visit Hematology/Oncology [facility] [address] [address] Fernanda Taylor CRNP [address] [facility] [place] [address] 05/02/2023 10:00 AM EST Hem/Onc Treatment Hematology/Oncology [facility], [place] [address] [facility] [address] 06/11/2023 8:20 AM EST Office Visit [facility] [address] [place] [phone] Chema Combs MD [address] [place] [address] 09/19/2023 1:30 PM EDT Office Visit Cardiology, [facility] [address] [place] [address] Prashant Riuz, [address] [facility] [address] Scheduled Procedures Name Priority Associated Diagnoses Date/Ti [...] 12/11/2022, 06/28, 07/06/2021, Additional history exists GFR 04/19/2024 04/19/2023, 03/27, 03/28/2023, Additional history exists O2 ASSESSMENT COMPLETED IN PAST YEAR FOR COPD 04/19/2024 04/19/2023 Colonoscopy 07/06/2026 07/06/2016, 07/06/2016 Colorectal Cancer Screening [...] 08/29/2016 LUNG CANCER SCREENING - USE SMARTSET [id number] Completed 10/01/2017 Zoster Vaccines Completed 12/14/2019, 09/24, [...] this encounter Medical Devices Implanted Type Area Agriculture Extension Specialist Device Identifier Shelf Expiration Date Model / Serial / Lot Port Implant W/8f Poly Cath - [id number] Implanted:Qty : 1 on 02/12/2023 at [facility] Right: Chest CR BARD : PERIPHERAL VASCULAR [id number] 04/25/2024 [id number] / / [id number] documented as of this encounter Advance Directives Latest Code Status on File Code Status Date Activated Date Inactivated Comments Full Code 12/27/2022 3:40 PM 01/01/2023 8:39 PM This or aj reflects the patients wishes and were consensually agreed upon. Question Answer Comments Discussion of Advance Directives occurred with: Patient Care Teams Writing Center Director Relationship Specialty Start Date End Date Chema Combs MD [address] [place] [address] PCP - General Family Medicine 07/02/18 documented as of this encounter
--- OUTSIDE RECORDS SUMMARY | 2023-05-22 14:50 | External Medical Summary ---
Author Name Unknown Address Unknown Organization K01:LABORATORY [facility] [place] - [address] [place] [address] Laboratory Report Ordering Provider Test Date Status MARLON ORTEGA 05/01/2023 09:19:07 Final Observation Date Value Abnormality Reference (Units ) Status TSH 05/01/2023 09:19:07 7.00 Above high normal 0. 27-4.20 (uIU/mL) Final Performing Location LABORATORY [facility] [place] - [address] [place] [address]
--- OUTSIDE RECORDS SUMMARY | 2023-05-22 14:50 | External Medical Summary ---
Author Name Unknown Address Unknown Organization K09:[place] [address] Laboratory Report Ordering Provider Test Date Status MARLON ORTEGA 04/19/2023 08:15:01 Final Observation Date Value Abnormality Reference (Units ) Status Magnesium 04/19/2023 08:15:01 1.4 Below low normal 1.5 -2.6 (mg/dL) Final Performing Location [place] [address]
--- OUTSIDE RECORDS SUMMARY | 2023-05-22 14:50 | External Medical Summary | Summary of Care ---
Author Name Unknown Organization [facility] Address [address] [place] [facility] [place] [address] Phone [phone] Care Team Providers Care Air Marshal Name Role Phone Chema Combs MD Primary Care Provider [phone] Reason for Visit * Reason Comments Chemotherapy Imfinzi/Gemzar/Cispl atin * Episode Based Medications (Routine) - Authorized Specialty Diagnoses / Procedures Referred By Contac t Referred To Contact Diagnoses Encounter for antineoplastic chemotherapy Gall bladder disease Carcinoma of gallbladder (HCC) Procedures IL CISPLATIN 10 MG INJECTION IL FOSAPREPITANT INJECTION IL IN GEMCITABINE HCL NOS 200MG [place] INJ., DURVALUMAB, 10 MG Scout Huddleston MD [address] [place] [address] Anc Hem/Onc Scene Chandrika DEPT CLOSED - 04/09/23 [address] [place] [phone] Referral ID Status Reason Start Date Expiration Date V isits Requested Visits Authorized [id number] Authorized 01/17/2023 01/18/2024 999 99 Encounter Details Date Type Department Care Team (Latest Contact Info) Description 04/11/2023 8:30 AM EST Hem/Onc Treatment Hematology/Oncolog y Treatment, [place] [address] [place] [address] Chandrika, Chair 4 Hem Onc Scenery [address] [place] [address] Encounter for antineoplastic chemotherapy*; Gall bladder disease; Carcinoma of gallbladder (HCC) Allergies Active Allergy Reactions Criticality Noted Date Comments Lisinopril Cough Low 08/18/2009 documented as of this encounter (statuses as of 04/12/2023) Medications Medication Sig Dispensed Refills Start Date [...] as of this encounter (statuses as of 04/12/2023) Active Problems Problem Noted Date Diagnosed Date [...] as of this encounter (statuses as of 04/12/2023) Resolved Problems Problem Noted Date Diagnosed Date [...] as of this encounter (statuses as of 04/12/2023) Immunizations Name Administration Dates Next Due COVID-19 [...] Sign Reading Time Taken Comments Blood Pressure 142/81 04/11/2023 8:36 AM EST Pulse 80 04/11/2023 8:36 AM EST Temperature 36.4 C (97.6 F) 04/11/2023 8:36 AM ES T Respiratory Rate 16 04/11/2023 8:36 AM EST Oxygen Saturation 95% 04/11/2023 8:36 AM EST Inhaled Oxygen Concentration - - Weight 106.6 kg (235 lb) 04/11/2023 8:36 AM EST Height - - Body Mass Index 31.87 04/10/2023 10:54 AM EST documented in this [...] of this encounter Nursing Notes * Anh Alfonso RN - 04/11/2023 4:14 PM EST Functional status at today's visit: [...] (100 units/ml). Luong needle removed intact. Goals: Pt will remain free from injury. Possible barriers to meeting goals: pt is a high fall risk Stability of the patient: Moderately stable - low risk of patient condition declining or worsening Summary regarding today's goals: Met: Pt remained free from injury during treatment today. Discharged in stable condition. JF assisted. * Anh Alfonso RN - 04/11/2023 8:37 AM EST Chair 10, Imfinzi/Gemzar/Cisplatin C3D1. Pt seen by Dr. Huddleston yesterday with labs reviewed; refer to OV notes. Pt has no new acute concerns to report today. VAD accessed; NSS infusing. Safety and Risk for Injury Patient will remain free from injury. Ensure appropriate safety devices are available. Provide and maintain safe environment. documented in this encounter Plan of Treatment Upcoming Encounters Date Type Department Care Team (Late st Contact Info) Description 04/19/2023 8:30 AM EST Laboratory Laboratory [facility] [place] [address] [facility] [place] [phone] [place] [address] 04/19/2023 9:30 AM EST Hem/Onc Treatment Hematology/Oncology Treatment, [place] [address] [place] [address] 04/25/2023 9:00 AM EST Imaging Radiology [facility] [address] [place] [address] 05/01/2023 9:30 AM EST Laboratory [facility], [address] [phone] [place], Lab Lock [address] [place] [address] 05/02/2023 9:30 AM EST Office Visit Hematology/Oncology [facility] [address] [place] [address] Fernanda Taylor CRNP [address] [place] [address] [place] [address] 05/02/2023 10:00 AM EST Hem/Onc Treatment Hematology/Oncology Treatment, [place] [address] [place] [address] 06/11/2023 8:20 AM EST Office Visit [facility] [address] [place] [phone] Chema Combs MD [address] [place] [address] 09/19/2023 1:30 PM EDT Office Visit Cardiology, [facility] [address] [place] [address] Prashant Ruiz DO [address] [place] [address] Scheduled Orders Name Type Priority Associated Diagnoses Orde r Schedule TSH WITH FREE T4 IF INDICATED Lab STAT Encounter for antineoplastic chemotherapy Gall bladder disease Carcinoma of gallbladder (HCC) Expected: 04/11/2023 (Approximate), Expires: 10/08/2023 GLUCOSE Lab STAT Encounter for antineoplastic chemotherapy Gall bladder disease Carcinoma of gallbladder (HCC) Expected: 04/11/2023 (Approximate), Expires: 10/08/2023 Scheduled Procedures Name Priority Associated Diagnoses Date/Ti me COLONOSCOPY FLEXIBLE PROXIMA L DIAGNOSTIC Recall Encounter for screening colonoscopy Health Maintenance Due Date Last Done Comments Alpha-1 Antitrypsin 1968 Hepatitis C Screening 1968 Cologuard 1995 Fecal Occult Blood Test 1995 Sigmoidoscopy 1995 Albumin/Creatinine Ratio 06/19/2019 017, 12/13/2014, 03/17/2014, Additional history exists Depression Screening 04/14/2021 04/14/2020, 11/11/19 15 COVID-19 Vaccine ( season) 2023 06/07/2021, 08/01/2020, 06/30/2020 B-12 12/12/2023 12/11/2022 HbA1c 12/12/2023 12/11/2022, 06/28, 07/06/2021, Additional history exists GFR 04/10/2024 04/10/2023, 06/2022, 03/20/2023, Additional history exists O2 ASSESSMENT COMPLETED IN PAST YEAR FOR COPD 04/11/2024 04/11/2023 Colonoscopy 07/06/2026 07/06/2016, 07/06/2016 Colorectal Cancer Screening [...] 08/29/2016 LUNG CANCER SCREENING - USE SMARTSET 64563 Completed 10/01/2017 Zoster Vaccines Completed 12/14/2019, 09/24, 02/16/2013 Influenza Vaccine (FLU shot) Completed , 04/06/2022, 02/24/2021, Additional history exists GARDASIL-HPV IMMUNIZATION SERIES Aged Out No longer eligible based on patient's age to complete this topic Hepatitis B Aged Out No longer eligi ble based on patient's age to complete this topic documented as of this encounter Medical Devices Implanted Type Area Nurse Liaison Device Identifier Shelf Expiration Date Model / Serial / Lot Port Implant W/8f Poly Cath - [id number] Implanted:Qty : 1 on 02/12/2023 at [facility] Right: Chest CR BARD : PERIPHERAL VASCULAR [id number] 04/25/2024 [id number] / / [id number] documented as of this encounter Visit Diagnoses Diagnosis Encounter for antineoplastic chemotherapy- Primary Gall bladder disease Unspecified disorder of gallbladder Carcinoma of gallbladder (HCC) Malignant neoplasm of gallbladder documented in this encounter Administered Medications Inactive Administered Medications - up to 3 most recent administrations Medication Order MAR Action Action Date Dose Rate Site CISplatin (Platinol) 58 mg in NSS 500 mL infusion 58 mg (25 mg/m2 2.32 m2 Treatment Plan BSA from Recorded weight), IV Piggyback, Administer over 60 Minutes, PROTECT FROM LIGHT, ONCE, 1 dose, On Tran 04/11/23 at 0945 Start Infusion 04/11/2023 11:17 AM EST 58 mg 500 mL/hr Durvalumab (Imfinzi) 1,500 mg in NSS 250 mL infusion 1,500 mg, IV Piggyback, ONCE, 1 dose, On Sat04/11/23 at 0845, Administer over 60 Minutes, Administer through 0.22 micron low protein binding filter! Final Concentration between 1-15 mg/mL Start Infusion 04/11/2023 9:18 AM EST 1,500 mg 250 mL/hr fosaprepitant Dimeglumine (Emend) 150 mg, ondansetron (Zofran) 16 mg, dexamethasone sodium phosphate 12 mg in NSS 250 mL Infusion 150 mg, IV Piggyback, ONCE, 1 dose, On Tran 04/11/23 at 0915, Administer over 30 Minutes, Give 30 minutes prior to chemotherapy. Infuse over 30 minutes. Start Infusion 04/11/2023 8:43 AM EST 150 mg 500 mL/hr gemcitabine (Gemzar) 2,400 mg in NSS 250 mL infusion 2,400 mg (rounded from 2,320 mg = 1,000 mg/m2 2.32 m2 Treatment Plan BSA from Recorded weight), IV Piggyback, ONCE, 1 dose, On Tran 04/11/23 at 0945, Administer over 30 Minutes Start Infusion 04/11/2023 10:35 AM EST 2,400 mg 500 mL/hr hEParin 100 UNIT/ML Lock Flush inj 500 Units 500 Units (5 mL), IV Lock, PRN Other, IV Flush, Starting on Tran 04/11/23 at 0811, Until Tran 04/11/23 at 2016, For 24 hours, Do not flush if lock, PICC, or central line not in place; IV infusing or unable to flush. Given 04/11/2023 2:46 PM EST 500 Units NSS 1,000 mL with magnesium sulfate 1 g infusion Intravenous, at 500 mL/hr Administer over 2 Hours, Post-cisplatin hydration, CONTINUOUS, Starting on Tran 04/11/23 at 1045, Until Tran 04/11/23 at 2016 Start Infusion 04/11/2023 12:29 PM EST 500 mL/hr NSS infusion FOR HYDRATION Intravenous, at 500 mL/hr Administer over 2 Hours, ONCE, 1 dose, On Tran 04/11/23 at 0845 Start Infusion 04/11/2023 8:30 AM EST 1,000 mL 500 mL/hr NSS infusion 500 mL, Intravenous, at 50 mL/hr, CONTINUOUS, Starting on Tran 04/11/23 at 0915, Until Tran 04/11/23 at 1914 Start Infusion 04/11/2023 8:35 AM EST 500 mL 50 mL/hr potassium chloride ER tab 20 mEq 20 mEq, Oral, ONCE, On Tran 04/11/23 at 1045, For 1 dose, This med should NOT be Crushed or Chewed Give with post-hydration. Hold if serum potassium is greater than or equal to 5 mmol/L. Given 04/11/2023 12:28 PM EST 20 mEq sodium chloride 0.9 % flush central line 10 mL 10 mL, IV Push, PRN Other, IV Flush, Starting on Tran 04/11/23 at 0811, Until Tran 04/11/23 at 2016, For 24 hours, Do not flush if lock, PICC, or central line not in place; IV infusing or unable to flush. Given 04/11/2023 2:46 PM EST 10 mL documented in this encounter Advance Directives Latest Code Status on File Code Status Date Activated Date Inactivated Comments Full Code 12/27/2022 3:40 PM 01/01/2023 8:39 PM This or aj reflects the patients wishes and were consensually agreed upon. Question Answer Comments Discussion of Advance Directives occurred with: Patient Care Teams Air Marshal Relationship Specialty Start Date End Date Chema Combs MD [address] [place] [address] PCP - General Family Medicine 07/02/18 documented as of this encounter
--- OUTSIDE RECORDS SUMMARY | 2023-05-22 14:50 | External Medical Summary ---
Author Name Unknown Address Unknown Organization K09:[facility] [place] [id number] Laboratory Report Ordering Provider Test Date Status MARLON ORTEGA 04/19/2023 08:15:01 Final Observation Date Value Abnormality Reference (Units ) Status WBC, Total 04/19/2023 08:15:01 38.10 Above high normal 4 .00-10.80 (K/uL) Final RBC 04/19/2023 08:15:01 2.87 4.50-5.25 (M/uL) Final Hemoglobin 04/19/2023 08:15:01 9.5 Below low normal 14 .0-16.8 (g/dL) Final HCT 04/19/2023 08:15:01 29.2 Below low normal 40. 0-48.4 (%) Final MCV 04/19/2023 08:15:01 101.7 82.0-99.5 (fL) Final MCH 04/19/2023 08:15:01 33.1 27.0-34.0 (pg) Final MCHC 04/19/2023 08:15:01 32.5 32.0-36.0 (g/dL) Final RDW 04/19/2023 08:15:01 19.3 11.5-15.5 (%) Final Platelets 04/19/2023 08:15:01 389 140-400 (K /uL) Final MPV 04/19/2023 08:15:01 8.5 6.6-11.1 ( fL) Final Performing Location [facility] [place] [place] [address]
--- OUTSIDE RECORDS SUMMARY | 2023-05-22 14:50 | External Medical Summary | Summary of Care ---
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) Procedures CT CHEST/ABDOMEN/PELVIS WITH IV CONTRAST WITHOUT ORAL CONTRAST Scout Huddleston MD [address] [facility] [place] [address] Referral ID Status Reason Start Date Expiration Date V isits Requested Visits Authorized [id number] Authorized 04/11/2023 10/08/2023 999 999 Encounter Details Date Type Department Care Team (Late st Contact Info) Description 04/25/2023 9:00 AM EST Imaging Radiology [address] [place] [address] 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); Carcinoma of gallbladder (HCC) Allergies Active Allergy Reactions Criticality Noted Date Comments Lisinopril Cough Low 08/18/2009 documented as of this encounter (statuses as of 04/25/2023) Medications Medication Sig Dispensed Refills Start Date [...] THE MORNING 90 Tablet 1 02/18/2023 Active Hospital, Clinic, or Other Facility Administered Medication Ordered Dose Route Frequency Start Date End Date Status sodium chloride 0.9 % flush/inj 10 mL 10 mL IV PUSH ONCE 04/25/2023 04/25/2023 Active documented as of this encounter (statuses as of 04/25/2023) Active Problems Problem Noted Date Diagnosed Date [...] as of this encounter (statuses as of 04/25/2023) Resolved Problems Problem Noted Date Diagnosed Date [...] as of this encounter (statuses as of 04/25/2023) Immunizations Name Administration Dates Next Due COVID-19 [...] No 12/27/2022 documented as of this encounter Patient Instructions * Patient Instructions* Daphnie Orta, RT (R) - 04/25/2023 9:33 AM EST Jh Fields Jr. [id number] [facility] RADIOLOGY CT SCAN OUTPATIENT Information regarding medications after IV contrast has been administered PLEASE DRINK PLENTY OF FLUIDS FOR 24 HOURS AFTER YOUR TEST HAS BEEN COMPLETED. ATTENTION: CT Contrast has been administered Date: 04/25/2023 Time: 0830 Please discontinue Metformin agent for at least 48 HOURS. REMINDER Please DO NOT take any Medications containing Metformin for at least 48 hours AFTER the injection of IV Contrast. These medications include: Glucophage, Fortamet, Glumetza, Glucophage XR, Metaglip, ActoPlus Met, PrandiMet, Avandamet, Janumet, Riomet, Invokamet, Jentadueto, Kombiglyze XR, Xigduo XR,Kazano, and Synjardy. The medications listed above should not be resumed until renal function has been assessed and foundto be normal by your attending physician. Please contact your physician for further instructions. documented in this encounter Plan of Treatment Upcoming Encounters Date Type Department Care Team (Late st Contact Info) Description 05/01/2023 9:30 AM EST Laboratory Laboratory Patient Service [address] [phone] [address] 05/02/2023 9:30 AM EST Office Visit [facility]ematology[facility]Oncology [facility] [address] [facility] [address] Fernanda Taylor CRNP [address] [facility] [place] [address] 05/02/2023 10:00 AM EST Hem/Onc Treatment Hematology/[address], [address] [address] 06/11/2023 8:20 AM EST Office Visit [facility] [address] [facility] [place] [phone] Chema Combs MD [address] [place] [address] 09/19/2023 1:30 PM EDT Office Visit Cardiology, [facility] [address] [place] [address] Prashant Ruiz, [address] [place] [address] Pending Results Name Type Priority Associated Diagnoses Date /Time CT CHEST/ABDOMEN/PELVI S WITH IV CONTRAST WITHOUT ORAL CONTRAST Medical Imaging Routine 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) 04/25/2023 8:51 AM EST Scheduled Procedures Name Priority Associated [...] 08/29/2016 LUNG CANCER SCREENING - USE SMARTSET 61886 Completed 10/01/2017 Zoster Vaccines Completed 12/14/2019, 09/24, 02/16/2013 Influenza Vaccine (FLU shot) Completed , 04/06/2022, 02/24/2021, Additional history exists GARDASIL-HPV IMMUNIZATION SERIES Aged Out No longer eligible based on patient's age to complete this topic Hepatitis B Aged Out No longer eligi ble based on patient's age to complete this topic documented as of this encounter Medical Devices Implanted Type Area Solderer Electronic Device Identifier Shelf Expiration Date Model / Serial / Lot Port Implant W/8f Poly Cath - [id number] Implanted:Qty : 1 on 02/12/2023 at [facility] Right: Chest CR BARD : PERIPHERAL VASCULAR [id number] 04/25/2024 [id number] / / [id number] documented as of this encounter Visit Diagnoses Diagnosis 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) Chronic lymphoid leukemia, without mention of having achieved remission Carcinoma of gallbladder (HCC) Malignant neoplasm of gallbladder documented in this encounter Administered Medications Inactive Administered Medications - up to 3 most recent administrations Medication Order MAR Action Action Date Dose Rate Site Ioversol (Optiray 350) 74 % inj 100 mL 100 mL, Intravenous, ONCE, On Tran 04/25/23 at 0933, For 1 dose Given 04/25/2023 8:45 AM EST 95 mL documented in this encounter Advance Directives Latest Code Status on File Code Status Date Activated Date Inactivated Comments Full Code 12/27/2022 3:40 PM 01/01/2023 8:39 PM This or aj reflects the patients wishes and were consensually agreed upon. Question Answer Comments Discussion of Advance Directives occurred with: Patient Care Teams [place] Relationship Specialty Start Date End Date Chema Combs MD [address] [place] [address] PCP - General Family Medicine 07/02/18 documented as of this encounter
--- OUTSIDE RECORDS SUMMARY | 2023-05-22 14:50 | External Medical Summary | Summary of Care ---
Author Name Unknown Organization [facility] Address [address] [facility] [address] Phone [phone] Care Team Providers Care Workplace Trainer And Assessor Name Role Phone Chema Combs MD Primary Care Provider [phone] Reason for Visit * Reason Comments Chemotherapy C3D8 Cisplatin/Gemza r * Episode Based Medications (Routine) - Authorized Specialty Diagnoses / Procedures Referred By Contjuan t Referred To Contact Diagnoses Encounter for antineoplastic chemotherapy Gall bladder disease Carcinoma of gallbladder (HCC) Procedures SC CISPLATIN 10 MG INJECTION SC FOSAPREPITANT INJECTION SC IN GEMCITABINE HCL NOS 200MG SC INJ., DURVALUMAB, 10 MG Scout Huddleston MD [address] [place] [address] Anc Hem/Onc Jonas Cobos DEPT CLOSED - 04/09/23 200 [facility] [place] [address] Referral ID Status Reason Start Date Expiration Date V isits Requested Visits Authorized [id number] Authorized 01/17/2023 01/18/[phone] Encounter Details Date Type Department Care Team (Latest Contact Info) Description 04/19/2023 9:30 AM EST Hem/Onc Treatment Hematology/Oncolog y Treatment, [place] [address] [place] [address] Encounter for antineoplastic chemotherapy*; Gall bladder disease; Carcinoma of gallbladder (HCC) Allergies Active Allergy Reactions Criticality Noted Date Comments Lisinopril Cough Low 08/18/2009 documented as of this encounter (statuses as of 04/19/2023) Medications Medication Sig Dispensed Refills Start Date [...] as of this encounter (statuses as of 04/19/2023) Active Problems Problem Noted Date Diagnosed Date [...] 150/90 08/25/2014 POLST (Physician Orders for Life-Sustaining Michelnie tment) 11/12/2013 COPD, mild 01/02/2012 Dyslipidemia, goal LDL below 100 11/15/2009 Chronic 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 02/17/2008 documented as of this encounter (statuses as of 04/19/2023) Resolved Problems Problem Noted Date Diagnosed Date [...] as of this encounter (statuses as of 04/19/2023) Immunizations Name Administration Dates Next Due COVID-19 [...] Sign Reading Time Taken Comments Blood Pressure 165/82 04/19/2023 9:00 AM EST Pulse 76 04/19/2023 9:00 AM EST Temperature 36.8 C (98.2 F) 04/19/2023 9:00 AM ES T Respiratory Rate 16 04/19/2023 9:00 AM EST Oxygen Saturation 98% 04/19/2023 9:00 AM EST on 2 L NC Inhaled Oxygen Concentration - - Weight 107.3 kg (236 lb 9.6 oz) 04/19/2023 9:00 AM EST Height - - Body Mass Index 32.09 04/10/2023 10:54 AM EST documented in this [...] as of this encounter Nursing Notes * Amberly Barros, RN - 04/19/2023 9:29 AM EST Chair 12 Pt here for C3D8 Cisplatin/Gemzar. States he has felt "washed out" since last treatment. No other complaints. Chemo agents cisplatin/gemzar Appetite "too good" Nausea/Vomiting denies Diarrhea denies Constipation denies Mucositis denies Fatigue yes Bleeding denies Infection denies Rash denies Numbness tingling denies Pain denies Radiation no ABN Labs WNL for treatment Alt in Tx: no Return in 3 weeks Safety and Risk for Injury Patient will remain free from injury. Ensure appropriate safety devices are available. Provide and maintain safe environment. Goals: Patient will remain free from injury. Possible barriers to meeting goals: ambulation with IV pole Stability of the patient: Moderately unstable - medium risk of patient condition declining or worsening Summary regarding today's goals: Met: patient without injury during treatment today Functional status at today's visit: Ambulatory and capable of all selfcare but unable to carry out any work activities. Up and about more than 50% of waking hours The drug name, dose, infusion volume, rate and route of administration, expiration date and time, appearance and physical integrity of the drug and rate set on the pump and sequencing of drug administration (as applicable) were verified by me and second sign-in RN. Patient was assessed for symptoms or adverse side effects during treatment. Pt tolerated ordered medications well. No complaints. Discharged in stable condition. documented in this encounter Plan of Treatment Upcoming Encounters Date Type Department Care Team (Late st Contact Info) Description 04/25/2023 9:00 AM EST Imaging Radiology [address] [place] [address] 05/01/2023 9:30 AM EST Laboratory Laboratory Patient Service [address] [phone] [address] 05/02/2023 9:30 AM EST Office Visit Hematology/Oncology [facility] [address] [facility] [address] Fernanda Taylor CRNP [address] [place] [address] [place] [address] 05/02/2023 10:00 AM EST Hem/Onc Treatment Hematology/Oncology Treatment, [place] [address] [place] [address] 06/11/2023 8:20 AM EST [facility] Visit [facility] [place] [address] [facility] [phone] Chema Combs MD [address] [facility] [address] 09/19/2023 1:30 PM EDT Office Visit Cardiology, [facility] [address] [place] [address] Prashant Ruiz DO [address] [place] [address] Scheduled Procedures Name Priority Associated Diagnoses Date/Ti [...] 12/12/2023 12/11/2022, 06/28, 07/06/2021, Additional history exists O2 ASSESSMENT COMPLETED IN PAST YEAR FOR COPD 04/11/2024 04/19/2023 GFR 04/19/2024 04/19/2023, 03/27, 03/28/2023, Additional history exists Colonoscopy 07/06/2026 07/06/2016, 07/06/2016 [...] 08/29/2016 LUNG CANCER SCREENING - USE SMARTSET [id number] Completed 10/01/2017 Zoster Vaccines Completed 12/14/2019, 09/24, 02/16/2013 Influenza Vaccine (FLU shot) Completed , 04/06/2022, 02/24/2021, Additional history exists GARDASIL-HPV IMMUNIZATION SERIES Aged Out No longer eligible based on patient's age to complete this topic Hepatitis B Aged Out No longer eligi ble based on patient's age to complete this topic documented as of this encounter Medical Devices Implanted Type Area Psychological Stress Evaluator Device Identifier Shelf Expiration Date Model / Serial / Lot Port Implant W/8f Poly Cath - [id number] Implanted:Qty : 1 on 02/12/2023 at [facility] Right: Chest CR BARD : PERIPHERAL VASCULAR [id number] 04/25/2024 [id number] / / [id number] documented as of this encounter Visit Diagnoses [...] ONCE PRN Other, Hypersensitivity Reaction, Starting on Sat04/19/23 at 0926, Until 04/20/23 at 0925, For 24 hours EPINEPHrine 1 MG/ML inj 0.3 mg 0.3 mg, Intramuscular, ONCE PRN Other, Hypersensitivity Reaction or Anaphylaxis, Starting on Sat04/19/23 at 0926, Until 04/20/23 at 0925, For 24 hours hEParin 100 UNIT/ML Lock Flush inj 500 Units 500 Units (5 mL), IV Lock, PRN Other, IV Flush, Starting on Sat04/19/23 at 0926, Until 04/20/23 at 09, For 24 hours, Do not flush if lock, PICC, or central line not in place; IV infusing or unable to flush. Given 04/19/2023 2:16 PM EST 500 Units Hydrocortisone Sod Suc (PF) (Solu-Cortef) inj 100 mg 100 mg, IV Push, ONCE PRN Other, Hypersensitivity Reaction, Starting on Sat04/19/23 at 0926, Until 04/20/23 at 09, For 24 hours NSS 1,000 mL with magnesium sulfate 1 g infusion Intravenous, at 500 mL/hr Administer over 2 Hours, Post-cisplatin hydration, CONTINUOUS, Starting on Sat04/19/23 at 1200, Until Discontinued Start Infusion 04/19/2023 12:17 PM EST 500 mL/hr NSS infusion 500 mL, Intravenous, at 50 mL/hr, CONTINUOUS, Starting on Sat04/19/23 at 1030, Until Sat04/19/23 at 2028 Start Infusion 04/19/2023 9:15 AM EST 500 mL 50 mL/hr oxygen GAS Inhalation, OXYGEN, First dose on Sat04/19/23 at 1000, Until Discontinued, Device/Managed by: Low Flow Device, [...] Push, PRN Other, IV Flush, Starting on Sat04/19/23 at 0926, Until 04/20/23 at 09, For 24 hours, Do not flush if lock, PICC, or central line not in place; IV infusing or unable to flush. Given 04/19/2023 2:16 PM EST 10 mL Inactive Administered Medications - up to 3 most recent administrations Medication Order MAR Action Action Date Dose Rate Site CISplatin (Platinol) 58 mg in NSS 500 mL infusion 58 mg (25 mg/m2 2.32 m2 Treatment Plan BSA from Recorded weight), IV Piggyback, Administer over 60 Minutes, PROTECT FROM LIGHT, ONCE, 1 dose, On Sat04/19/23 at 1100 Start Infusion 04/19/2023 11:13 AM EST 58 mg 500 mL/hr fosaprepitant Dimeglumine (Emend) 150 mg, ondansetron (Zofran) 16 mg, dexamethasone sodium phosphate 12 mg in NSS 250 mL Infusion 150 mg, IV Piggyback, ONCE, 1 dose, On Sat04/19/23 at 1030, Administer over 30 Minutes, Give 30 minutes prior to chemotherapy. Infuse over 30 minutes. Start Infusion 04/19/2023 9:36 AM EST 150 mg 500 mL/hr gemcitabine (Gemzar) 2,400 mg in NSS 250 mL infusion 2,400 mg (rounded from 2,320 mg = 1,000 mg/m2 2.32 m2 Treatment Plan BSA from Recorded weight), IV Piggyback, ONCE, 1 dose, On Sat04/19/23 at 1100, Administer over 30 Minutes Start Infusion 04/19/2023 10:42 AM EST 2,400 mg 500 mL/hr NSS infusion FOR HYDRATION Intravenous, at 500 mL/hr Administer over 2 Hours, ONCE, 1 dose, On Sat04/19/23 at 1000 Start Infusion 04/19/2023 9:15 AM EST 1,000 mL 500 mL/hr potassium chloride ER tab 20 mEq 20 mEq, Oral, ONCE, On Sat04/19/23 at 1200, For 1 dose, This med should NOT be Crushed or Chewed Give with post-hydration. Hold if serum potassium is greater than or equal to 5 mmol/L. Given 04/19/2023 12:17 PM EST 20 mEq documented in this encounter Advance Directives Latest Code Status on File Code Status Date Activated Date Inactivated Comments Full Code 12/27/2022 3:40 PM 01/01/2023 8:39 PM This or aj reflects the patients wishes and were consensually agreed upon. Question Answer Comments Discussion of Advance Directives occurred with: Patient Care Teams Workplace Trainer And Assessor Relationship Specialty Start Date End Date Chema Combs MD [address] [facility] [place] [address] PCP - General Family Medicine 07/02/18 documented as of this encounter
--- OUTSIDE RECORDS SUMMARY | 2023-05-22 14:50 | External Medical Summary ---
Author Name Unknown Address Unknown Organization [id number]:[facility] [address] [place] [address] Laboratory Report Ordering Provider Test Date Status MARLON ORTEGA 04/19/2023 08:15:01 Final Observation Date Value Abnormality Reference (Units ) Status SYNC LEUKOCYTES IN BLOOD BY AUTOMATED COUNT 04/19/2023 08:15:01 38.10 Above high normal 4.00-10.80 (K/uL) Final Neutrophils/100 leukocytes in Blood by Manual count 04/19/2023 08:15:01 24.0 Below low normal 40.0-75.0 (%) Final Lymphocytes/100 leukocytes in Blood by Manual count 04/19/2023 08:15:01 70.0 Above high normal 18.0-42.0 (%) Final Monocytes/100 leukocytes in Blood by Manual count 04/19/2023 08:15:01 5.0 1.0-11.0 (%) Final Eosinophils/100 leukocytes in Blood by Manual count 04/19/2023 08:15:01 1.0 0.0-6.0 (%) Final Neutrophils [#/volume] in Blood by Manual count 04/19/2023 08:15:01 9.14 Above high normal 1.80-7.70 (K/uL) Final Lymphocytes [#/volume] in Blood by Manual count 04/19/2023 08:15:01 26.67 Above high normal 1.00-4.80 (K/uL) Final Monocytes [#/volume] in Blood by Manual count 04/19/2023 08:15:01 1.91 Above high normal 0.00-1.10 (K/uL) Final Eosinophils [#/volume] in Blood by Manual count 04/19/2023 08:15:01 0.38 0.00-0.70 (K/uL) Final Nucleated erythrocytes/100 leukocytes [Ratio] in Blood by Automated count 04/19/2023 08:15:01 Final Variant lymphocytes [Presence] in Blood by Light microscopy 04/19/2023 08:15:01 Present Abnormal None Seen Final Smudge cells [Presence] in Blood by Light microscopy 04/19/2023 08:15:01 Present Abnormal None Seen Final Performing Location [facility] [address] [place] [address]
--- OUTSIDE RECORDS SUMMARY | 2023-05-22 14:50 | External Medical Summary ---
Author Name Unknown Address Unknown Organization K01:[facility] - [address] [place] [address] Laboratory Report Ordering Provider Test Date Status MARLON ORTEGA 05/01/2023 09:19:07 Final Observation Date Value Abnormality Reference (Units ) Status T4, Free 05/01/2023 09:19:07 1.1 0.9-1.7 (n g/dL) Final Performing Location [facility] - [address] [place] [address]
--- OUTSIDE RECORDS SUMMARY | 2023-05-22 14:50 | External Medical Summary | Summary of Care ---
Author Name Unknown Organization [facility] Address [address] [facility] [address] Phone [phone] Care Team Providers Care Survey Research Teacher Name Role Phone Chema Combs MD Primary Care Provider [phone] Encounter Details Date Type Department Care Team (Late st Contact Info) Description 04/29/2023 Orders Only Hematology/Oncology [facility] Chandrika [place] [address] [facility] [place] [address] Scout Huddleston MD [address] [facility] [place] [address] Allergies Active Allergy Reactions Criticality Noted Date Comments Lisinopril Cough Low 08/18/2009 documented as of this encounter (statuses as of 04/29/2023) Medications Medication Sig Dispensed Refills Start Date [...] ons:HTN, goal below 150/90,PAF (paroxysmal atrial fibrillation) ([facility]) TAKE 1 TABLET BY MOUTH TWICE A [...] as of this encounter (statuses as of 04/29/2023) Active Problems Problem Noted Date Diagnosed Date [...] as of this encounter (statuses as of 04/29/2023) Resolved Problems Problem Noted Date Diagnosed Date [...] as of this encounter (statuses as of 04/29/2023) Immunizations Name Administration Dates Next Due COVID-19 [...] AM EST Laboratory [facility], [address] [phone] [address] [address] 05/02/2023 9:30 AM EST Office Visit Hematology/Oncology [facility] 200 [place] [address] Fernanda Taylor CRNP [address] [place] [address] 05/02/2023 10:00 AM EST Hem/Onc Treatment Hematology/Oncology Treatment, [place] 200 [place] [address] 06/11/2023 8:20 AM EST Office Visit [facility] [address] [place] [phone] Chema Combs MD [address] [place] [address] 09/19/2023 1:30 PM EDT Office Visit Cardiology, [facility] [address] [place] [address] Prashant Ruiz, [address] [place] [address] Scheduled Procedures Name Priority Associated Diagnoses Date/Ti [...] 08/29/2016 LUNG CANCER SCREENING - USE SMARTSET [id number] Completed 10/01/2017 Zoster Vaccines Completed 12/14/2019, 09/24, [...] this encounter Medical Devices Implanted Type Area Entry Level Electrical Engineer Device Identifier Shelf Expiration Date Model / Serial / Lot Port Implant W/8f Poly Cath - [id number] Implanted:Qty : 1 on 02/12/2023 at [facility] Right: Chest CR BARD : PERIPHERAL VASCULAR [id number] 04/25/2024 [id number] / / [id number] documented as of this encounter Advance Directives Latest Code Status on File Code Status Date Activated Date Inactivated Comments Full Code 12/27/2022 3:40 PM 01/01/2023 8:39 PM This or aj reflects the patients wishes and were consensually agreed upon. Question Answer Comments Discussion of Advance Directives occurred with: Patient Care Teams Survey Research Teacher Relationship Specialty Start Date End Date Chema Combs MD [address] [place] [address] PCP - General Family Medicine 07/02/18 documented as of this encounter
--- OUTSIDE RECORDS SUMMARY | 2023-05-22 14:50 | External Medical Summary | Summary of Care ---
Author Name Unknown Organization [facility] Address [address] [facility] [address] Phone [phone] Care Team Providers Care Junior Mechanical Engineer Name Role Phone Chema Combs MD Primary Care Provider Reason for Visit * Reason Comments Outpatient Testing Encounter Details Date Type Department Care Team (Late st Contact Info) Description 04/19/2023 8:30 AM EST Laboratory [facility] [address] [place] [phone] [facility] [address] [place] [address] Gall bladder disease; Chronic lymphocytic leukemia of [...] Cream (Emla)Indications:C arcinoma of gall bladder (FORMER[facility]) APPLY TO SKIN OVER MEDIPORT & COVER [...] Team (Late st Contact Info) Description 04/19/2023 9:30 AM EST Hem/Onc Treatment Hematology/[address]cology [address], [address] [address] Arrived 04/25/2023 9:00 AM EST Imaging Radiology [address], [place] 132 [facility] [place] [address] 05/01/2023 9:30 AM EST Laboratory [facility] [phone] [address] 05/02/2023 9:30 AM EST Office Visit Hematology/Oncology [address] [address] Fernanda Taylor CRNP [address] [place] [address] [place] [address] 05/02/2023 10:00 AM EST Hem/Onc Treatment Hematology/Oncology Treatment, [address] [address] 06/11/2023 8:20 AM EST Office Visit [facility] [address] [facility] [phone] Chema Combs MD [address] [facility] [address] 09/19/2023 1:30 PM EDT Office Visit Cardiology, [facility] [address] [place] [address] Prashant Ruiz, [address] [place] [address] Pending Results Name Type Priority Associated Diagnoses Date /Time CBC WITH WBC DIFFERENTIAL Lab STAT Gall bladder disease 04/19/2023 8:15 AM EST COMPREHENSIVE METABOLIC PANEL Lab STAT Gall bladder disease 04/19/2023 8:15 AM EST MAGNESIUM Lab STAT 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) 04/19/2023 8:15 AM EST TSH WITH FREE T4 IF INDICATED Lab STAT Encounter for antineoplastic chemotherapy Gall bladder disease Carcinoma of gallbladder (HCC) 04/19/2023 8:15 AM EST CBC Lab STAT Gall bladder disease 04/19/2023 8:15 AM EST DIFFERENTIAL, AUTOMATED Lab STAT Gall bladder disease 04/19/2023 8:15 AM EST Scheduled Procedures Name Priority Associated [...] 07/06/2021, Additional history exists GFR 04/10/2024 04/10/2023, 11/0 06/2022, 03/20/2023, Additional history exists O2 ASSESSMENT [...] 08/29/2016 LUNG CANCER SCREENING - USE SMARTSET 70296 Completed 10/01/2017 Zoster Vaccines Completed 12/14/2019, 09/24, 02/16/2013 Influenza Vaccine (FLU shot) Completed , 04/06/2022, 02/24/2021, Additional history exists GARDASIL-HPV IMMUNIZATION SERIES Aged Out No longer eligible based on patient's age to complete this topic Hepatitis B Aged Out No longer eligi ble based on patient's age to complete this topic documented as of this encounter Medical Devices Implanted Type Area Investment Manager Device Identifier Shelf Expiration Date Model / Serial / Lot Port Implant W/8f Poly Cath - [id number] Implanted:Qty : 1 on 02/12/2023 at [facility] Right: Chest CR BARD : PERIPHERAL VASCULAR [id number] 04/25/2024 [id number] / / [id number] documented as of this encounter Visit Diagnoses [...] 12/27/2022 3:40 PM 01/01/2023 8:39 PM This o rder reflects the patients wishes and were consensually agreed upon. Question Answer Comments Discussion of Advance Directives occurred with: Patient Care Teams Junior Mechanical Engineer Relationship Specialty Start Date End Date Chema Combs MD [address] [place], [place] [phone] PCP - General Family Medicine 07/02/18 documented as of this encounter
--- OUTSIDE RECORDS SUMMARY | 2023-05-22 14:50 | External Medical Summary ---
Author Name Unknown Address Unknown Organization K01:[facility] - [address] [facility] [address] Laboratory Report Ordering Provider Test Date Status ORTEGAKAYMARLON 05/01/2023 09:19:07 Final Observation Date Value Abnormality Reference (Units ) Status SYNC LEUKOCYTES IN BLOOD BY AUTOMATED COUNT 05/01/2023 09:19:07 30.85 Above high normal 4.00-10.80 (K/uL) Final Neutrophils/100 leukocytes in Blood by Manual count 05/01/2023 09:19:07 19.0 Below low normal 40.0-75.0 (%) Final Lymphocytes/100 leukocytes in Blood by Manual count 05/01/2023 09:19:07 74.0 Above high normal 18.0-42.0 (%) Final Monocytes/100 leukocytes in Blood by Manual count 05/01/2023 09:19:07 5.0 1.0-11.0 (%) Final Myelocytes/100 leukocytes in Blood by Manual count 05/01/2023 09:19:07 2.0 Above high normal <=0.0 (%) Final Neutrophils [#/volume] in Blood by Manual count 05/01/2023 09:19:07 5.86 1.80-7.70 (K/uL) Final Lymphocytes [#/volume] in Blood by Manual count 05/01/2023 09:19:07 22.83 Above high normal 1.00-4.80 (K/uL) Final Monocytes [#/volume] in Blood by Manual count 05/01/2023 09:19:07 1.54 Above high normal 0.00-1.10 (K/uL) Final Myelocytes [#/volume] in Blood by Manual count 05/01/2023 09:19:07 0.62 Above high normal <=0.00 (K/uL) Final Variant lymphocytes [Presence] in Blood by Light microscopy 05/01/2023 09:19:07 Present Abnormal None Seen Final Smudge cells [Presence] in Blood by Light microscopy 05/01/2023 09:19:07 Present Abnormal None Seen Final Performing Location [facility] - [address] [facility] [place] [address]
--- OUTSIDE RECORDS SUMMARY | 2023-05-22 14:50 | External Medical Summary ---
Author Name Unknown Address Unknown Organization K09:[facility] [address]- - [address] [place] [address] Laboratory Report Ordering Provider Test Date Status MARLON ORTEGA 04/19/2023 08:15:01 Final Observation Date Value Abnormality Reference (Units ) Status BUN 04/19/2023 08:15:01 34 Above high normal 6-20 (mg/dL) Final Creatinine 04/19/2023 08:15:01 1.4 Above high normal 0.6-1.2 (mg/dL) Final Glomerular filtration rate/1.73 sq M.predicted [Volume Rate/Area] in Serum, Plasma or Blood by Creatinine-based formula (CKD-EPI) 04/19/2023 08:15:01 53 Below low normal >=60 (mL/min) Final eGFR is calculated based on the CKD-EPI 2020 equation SODIUM 04/19/2023 08:15:01 141 135-146 (m mol/L) Final Potassium 04/19/2023 08:15:01 4.6 3.5-5.1 (m mol/L) Final Cl 04/19/2023 08:15:01 106 98-107 (mm ol/L) Final CO2 04/19/2023 08:15:01 26 22-32 (mmo l/L) Final Anion gap 04/19/2023 08:15:01 9 7-15 (mmol /L) Final Glucose 04/19/2023 08:15:01 167 Above high normal 70 -120 (mg/dL) Final Albumin 04/19/2023 08:15:01 3.8 3.8-5.0 (g /dL) Final AST (Aspartate aminotransferase) 04/19/2023 08:15:01 34 10-50 (U/L) Fin al Alk Phos 04/19/2023 08:15:01 123 35-130 (U/ L) Final Bilirubin, Total 04/19/2023 08:15:01 0.2 <=1 .2 (mg/dL) Final Calcium 04/19/2023 08:15:01 9.5 8.4-10.2 ( mg/dL) Final Protein 04/19/2023 08:15:01 6.3 6.0-8.3 (g /dL) Final ALT (Alanine aminotransferase) 04/19/2023 08:15:01 25 10-50 (U/L) Donell matthew Performing Location [facility] [address] [place] [address]
--- OUTSIDE RECORDS SUMMARY | 2023-05-22 14:50 | External Medical Summary ---
Author Name Unknown Address Unknown Organization K01:[facility] [address] [facility] [address] [place] [address] Laboratory Report Ordering Provider Test Date Status MARLON ORTEGA 05/01/2023 09:19:07 Final Observation Date Value Abnormality Reference (Units ) Status WBC, Total 05/01/2023 09:19:07 30.85 Above high normal 4.00-10.80 (K/uL) Final RBC 05/01/2023 09:19:07 2.73 4.50-5.25 (M/uL) Final Hemoglobin 05/01/2023 09:19:07 9.5 Below low normal 14.0-16.8 (g/dL) Final HCT 05/01/2023 09:19:07 29.1 Below low normal 40.0-48.4 (%) Final MCV 05/01/2023 09:19:07 106.6 82.0-99.5 (fL) Final MCH 05/01/2023 09:19:07 34.8 27.0-34.0 (pg) Final MCHC 05/01/2023 09:19:07 32.6 32.0-36.0 (g/dL) Final RDW 05/01/2023 09:19:07 21.5 11.5-15.5 (%) Final Platelets 05/01/2023 09:19:07 284 140-400 (K/uL) Final MPV 05/01/2023 09:19:07 10.1 6.6-11.1 (fL) Final Nucleated erythrocytes/100 leukocytes [Ratio] in Blood by Automated count 05/01/2023 09:19:07 0 <=0 (/100 WBCs) Final Performing Location [facility] [address] [address]
--- OUTSIDE RECORDS SUMMARY | 2023-05-22 14:50 | External Medical Summary ---
Author Name Unknown Address Unknown Organization K01:LABORATORY [facility] [place] - [address] [address] Laboratory Report Ordering Provider Test Date Status LORIE KRAUSE 05/01/2023 09:19:07 Final Observation Date Value Abnormality Reference (Units ) Status Vitamin B12 05/01/2023 09:19:07 [id number] (pg/mL) Final Performing Location LABORATORY [facility] - [address] [id number]
--- OUTSIDE RECORDS SUMMARY | 2023-05-22 14:50 | External Medical Summary ---
Author Name Unknown Address Unknown Organization K01:[place] [facility] [place] [address] [place] [address] Laboratory Report Ordering Provider Test Date Status MARLON ORTEGA 04/19/2023 08:15:01 Final Observation Date Value Abnormality Reference (Units ) Status TSH 04/19/2023 08:15:01 3.70 0.27-4.20 (uIU/mL) Final Performing Location LABORATORY C - [address] [place] [address]
--- OUTSIDE RECORDS SUMMARY | 2023-05-22 14:50 | External Medical Summary | Summary of Care ---
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) Allergies Active Allergy Reactions Criticality Noted Date Comments Lisinopril Cough Low 08/18/2009 documented as of this encounter (statuses as of 05/01/2023) Medications Medication Sig Dispensed Refills Start Date [...] as of this encounter (statuses as of 05/01/2023) Active Problems Problem Noted Date Diagnosed Date [...] as of this encounter (statuses as of 05/01/2023) Resolved Problems Problem Noted Date Diagnosed Date [...] as of this encounter (statuses as of 05/01/2023) Immunizations Name Administration Dates Next Due COVID-19 [...] 05/02/2023 9:30 AM EST Office Visit Hematology/Oncology [facility] [address] [place] [address] Fernanda Taylor CRNP [facility] [place] [address] 05/02/2023 10:00 AM EST Hem/Onc Treatment [facility] [place] [facility] [address] 06/11/2023 8:20 AM EST Office Visit Family [facility] [address] [place] [phone] Chema Combs MD [address] [place] [address] 09/19/2023 1:30 PM EDT Office Visit Cardiology, [facility] [address] [place] [address] Prashant Ruiz DO [address] [place] [address] Pending Results Name Type Priority Associated Diagnoses Date /Time CBC WITH WBC DIFFERENTIAL Lab STAT Gall bladder disease 05/01/2023 9:19 AM EST COMPREHENSIVE METABOLIC PANEL Lab STAT Gall bladder disease 05/01/2023 9:19 AM EST TSH WITH FREE T4 IF INDICATED Lab STAT Gall bladder disease 05/01/2023 9:19 AM EST MAGNESIUM Lab STAT 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) 05/01/2023 9:19 AM EST CBC Lab STAT Gall bladder disease 05/01/2023 9:19 AM EST DIFFERENTIAL, AUTOMATED Lab STAT Gall bladder disease 05/01/2023 9:19 AM EST Scheduled Procedures Name [...] 08/29/2016 LUNG CANCER SCREENING - USE SMARTSET 24428 Completed 10/01/2017 Zoster Vaccines Completed 12/14/2019, 09/24, [...] this encounter Medical Devices Implanted Type Area Emergency Physician Device Identifier Shelf Expiration Date Model / Serial / Lot Port Implant W/8f Poly Cath - [id number] Implanted:Qty : 1 on 02/12/2023 at [facility] Right: Chest CR BARD : PERIPHERAL VASCULAR [id number] 04/25/2024 [id number] / / [id number] documented as of this encounter Visit Diagnoses [...] Advance Directives occurred with: Patient Care Teams Parimutuel Ticket Checker Relationship Specialty Start Date End Date Chema Combs MD [address] [place] [address] PCP - General Family Medicine 07/02/18 documented as of this encounter
--- OUTSIDE RECORDS SUMMARY | 2023-05-22 14:51 | External Medical Summary | Summary of Care ---
Author Name Unknown Organization [facility] Address [address] [place] [address] Phone [phone] Care Team Providers Care Shot Blast Equipment Operator Name Role Phone Chema Combs MD Primary Care Provider [phone] Reason for Visit * Reason Onset Date Comments Appointment 01/10/2023 Return appointme nt Encounter Details Date Type Department Care Team (Late st Contact Info) Description 01/10/2023 Telephone [facility] [address] [place] [address] Chema Combs MD [address] [place] [address] Appointment (Return appointment) Allergies Active Allergy Reactions Criticality Noted Date Comments Lisinopril Cough Low 08/18/2009 documented as of this encounter (statuses as of 04/11/2023) Medications Medication Sig Dispensed Refills Start Date End Date Status VITAMIN D 1000 UNITS PO CAPSIndications :Vitamin D deficiency Take 2 Capsules by mouth in the morning. 60 Cap 11 05/14/2014 Active Acetaminophen 500 MG Capsule Take 2 Capsules by mouth every 6 hours as needed for Fever >38C(100.5F) or Pain, Mild. 0 Active aspirin enteric coated 81 MG TBEC Take 1 Tablet by mouth in the morning. 0 Active Fluticasone-Ume clidin-Vilant 100-62.5-25 MCG/ACT Aerosol Powder Breath Activated Inhale 1 Puff by mouth in the morning. 0 Active allopurinol (ZYLOPRIM) 100 MG TabletIndicatio ns:Chronic leukemia in remission (HCC),Elevated blood uric acid [...] Oral Capsule Extended Release 24 Hour (Cardizem CD)Indications: HTN, goal below 150/90,PAF (paroxysmal atrial fibrillation) ([facility]) TAKE 1 CAPSULE BY MOUTH EVERY DAY 90 Capsule 3 06/28/2022 Active Eliquis 5 MG Oral Tablet (Apixaban)Indic ations:PAF (paroxysmal atrial fibrillation) ([facility]) TAKE 1 TABLET BY MOUTH TWICE A DAY 180 Tablet 3 06/28/2022 Active Metoprolol Tartrate 50 MG Oral Tablet (Lopressor)Valerie cations:HTN, goal below 150/90,PAF (paroxysmal atrial fibrillation) ([facility]) TAKE 1 TABLET BY MOUTH TWICE A DAY 180 Tablet 3 06/28/2022 Active Furosemide 20 MG Oral Tablet (Lasix)Indicati ons:Localized edema Take 1 Tablet by mouth in the morning. 90 Tablet 1 01/10/2023 Active metFORMIN HCl ER 500 MG Oral Tablet Extended Release 24 Hour (Glucophage XR)Indications: Prediabetes Take by mouth 1 Tablet in the morning. 90 Tablet 3 01/17/2022 02/19/20 23 Discontinued Atorvastatin Calcium 20 MG Oral Tablet (Lipitor)Indica tions:Dyslipide balaji, goal LDL below 100 Take by mouth 1 Tablet in the morning. 90 Tablet 3 01/17/2022 02/19/20 23 Discontinued Gabapentin 300 MG Oral Capsule (Neurontin)Valerie cations:Essenti al tremor 3 caps twice daily 540 Capsule 3 01/17/2022 01/17/20 23 Discontinued(Med ication List Clean Up) oxyCODONE HCl 5 MG Oral Tablet (Oxy IR) Take 1 Tablet by mouth every 6 hours as needed for moderate pain 12 Tablet 0 01/01/2023 02/13/20 23 Discontinued documented as of this encounter (statuses as of 04/11/2023) Active Problems Problem Noted Date Diagnosed Date [...] as of this encounter (statuses as of 04/11/2023) Resolved Problems Problem Noted Date Diagnosed Date [...] as of this encounter (statuses as of 04/11/2023) Immunizations Name Administration Dates Next Due COVID-19 [...] encounter Miscellaneous Notes * Telephone Encounter - Chema Combs MD - 01/10/2023 2:38 PM EDT OK to double book for apt mid Oct * Telephone Encounter - Marybel Spence OSA - 01/10/2023 12:11 PM EDT Doctor wanted patient scheduled in two months. First available in person appointment is Apr 30. I scheduled patient for that, but wanted you to know in case you wanted to OB patient sooner. Please advise. documented in this encounter Plan of Treatment Upcoming Encounters Date Type Department Care Team (Late st Contact Info) Description 04/19/2023 8:30 AM EST Laboratory Laboratory [facility] 200 [facility] [place] [address] [place] [address] 04/19/2023 9:30 AM EST Hem/Onc Treatment Hematology/Oncology Treatment, [place] [address] [place] [address] 04/25/2023 9:00 AM EST Imaging Radiology [facility] [facility], [place] [address] [facility] [place] [address] 05/01/2023 9:30 AM EST Laboratory [facility], [address] [phone] [place], Lab Lock [address] [place], [place] [address] [address] 05/02/2023 9:30 AM EST Office Visit Hematology/Oncology [facility] [address] [place] [address] Fernanda Taylor CRNP [address] [facility] [place] [address] 05/02/2023 10:00 AM EST Hem/Onc Treatment [facility] [place] [facility] [address] 06/11/2023 8:20 AM EST Office Visit [facility] [address] [place] [phone] Chema Combs MD [address] [place] [address] 09/19/2023 1:30 PM EDT Office Visit Cardiology, [facility] [address] [place] [address] Prashant Ruiz, [address] [place] [address] Scheduled Procedures Name Priority Associated Diagnoses Date/Ti [...] 07/06/2021, Additional history exists GFR 04/10/2024 04/10/2023, 1106/2022, 03/20/2023, Additional history exists O2 ASSESSMENT COMPLETED IN PAST YEAR FOR COPD 04/10/2024 04/11/2023 Colonoscopy 07/06/2026 07/06/2016, 07/06/2016 Colorectal Cancer [...] 08/29/2016 LUNG CANCER SCREENING - USE SMARTSET 06296 Completed 10/01/2017 Zoster Vaccines Completed 12/14/2019, 09/24, 02/16/2013 Influenza Vaccine (FLU shot) Completed , 04/06/2022, 02/24/2021, Additional history exists GARDASIL-HPV IMMUNIZATION SERIES Aged Out No longer eligible based on patient's age to complete this topic Hepatitis B Aged Out No longer eligi ble based on patient's age to complete this topic documented as of this encounter Medical Devices Implanted Type Area Sas Developer Analyst Device Identifier Shelf Expiration Date Model / Serial / Lot Port Implant W/8f Poly Cath - [id number] Implanted:Qty : 1 on 02/12/2023 at [facility] Right: Chest CR BARD : PERIPHERAL VASCULAR [id number] 04/25/2024 [id number] / / [id number] documented as of this encounter Advance Directives Latest Code Status on File Code Status Date Activated Date Inactivated Comments Full Code 12/27/2022 3:40 PM 01/01/2023 8:39 PM This or aj reflects the patients wishes and were consensually agreed upon. Question Answer Comments Discussion of Advance Directives occurred with: Patient Care Teams Shot Blast Equipment Operator Relationship Specialty Start Date End Date Chema Combs MD [address] [place] [address] PCP - General Family Medicine 07/02/18 documented as of this encounter
--- OUTSIDE RECORDS SUMMARY | 2023-05-22 14:51 | External Medical Summary | Summary of Care ---
Author Name Unknown Organization [facility] Address [address] [facility] [address] Phone [phone] Care Team Providers Care Concrete Form Setter And Finisher Name Role Phone Chema Combs MD Primary Care Provider Reason for Visit * Reason Comments Outpatient Testing Encounter Details Date Type Department Care Team (Late st Contact Info) Description 04/10/2023 10:30 AM EST Laboratory Laboratory 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) Allergies Active Allergy Reactions Criticality Noted Date Comments Lisinopril Cough Low 08/18/2009 documented as of this encounter (statuses as of 04/10/2023) Medications Medication Sig Dispensed Refills Start Date [...] as of this encounter (statuses as of 04/10/2023) Active Problems Problem Noted Date Diagnosed Date [...] as of this encounter (statuses as of 04/10/2023) Resolved Problems Problem Noted Date Diagnosed Date [...] as of this encounter (statuses as of 04/10/2023) Immunizations Name Administration Dates Next Due COVID-19 [...] Care Team (Late st Contact Info) Description 04/10/2023 11:00 AM EST Office Visit Hematology/Oncology [facility] [place] [address] [facility] [place] [address] Scout Huddleston MD [address] [facility] [place] [address] Arrived 04/11/2023 8:30 AM EST [facility] [address] [facility] [address] [place] [address] Chandrika, Chair 4 Hem On[address] [place] [address] 06/11/2023 8:20 AM EST Office Visit [facility] [address] [place] [address] Chema Combs MD [address] [place] [address] 09/19/2023 1:30 PM EDT Office Visit Cardiology, [facility] [address] [place] [address] Prashant Ruiz DO [address] [address] Pending Results Name Type Priority Associated Diagnoses Date /Time COMPREHENSIVE METABOLIC PANEL Lab STAT Gall bladder disease 04/10/2023 10:24 AM EST TSH WITH FREE T4 IF INDICATED Lab STAT Gall bladder disease 04/10/2023 10:24 AM EST MAGNESIUM Lab STAT 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) 04/10/2023 10:24 AM EST Scheduled Procedures Name Priority Associated [...] 12/11/2022, 06/28, 07/06/2021, Additional history exists GFR 03/28/2024 03/28/2023, 02/25, 03/06/2023, Additional history exists O2 ASSESSMENT COMPLETED IN PAST YEAR FOR COPD 03/29/2024 03/29/2023 Colonoscopy 07/06/2026 07/06/2016, 07/06/2016 Colorectal Cancer Screening [...] 08/29/2016 LUNG CANCER SCREENING - USE SMARTSET 93095 Completed 10/01/2017 Zoster Vaccines Completed 12/14/2019, 09/24, 02/16/2013 Influenza Vaccine (FLU shot) Completed , 04/06/2022, 02/24/2021, Additional history exists GARDASIL-HPV IMMUNIZATION SERIES Aged Out No longer eligible based on patient's age to complete this topic Hepatitis B Aged Out No longer eligi ble based on patient's age to complete this topic documented as of this encounter Medical Devices Implanted Type Area Cow Tester Device Identifier Shelf Expiration Date Model / Serial / Lot Port Implant W/8f Poly Cath - [id number] Implanted:Qty : 1 on 02/12/2023 at [facility] Right: Chest CR BARD : PERIPHERAL VASCULAR [id number] 04/25/2024 [id number] / / [id number] documented as of this encounter Procedures Procedure Name Priority Date/Time Associated Diagnosis Comments DIFFERENTIAL, AUTOMATED STAT 04/10/2023 10:24 AM EST Gall bladder disease CBC STAT 04/10/2023 10:24 AM EST Gall bladder disease CBC STAT 04/10/2023 10:24 AM EST Gall bladder disease DIFFERENTIAL, TECHNOLOGIST REVIEW Routine 04/10/2023 10:24 AM EST Gall bladder disease documented in this encounter Results * (ABNORMAL) DIFFERENTIAL, TECHNOLOGIST REVIEW (04/10/2023 10:24 AM EST) nRBCs 04/10/2023 10:39 AM EST [facility] 56-02 Reactive Lymphocytes Present(A ) None Seen 04/10/2023 10:39 AM EST [facility] 56-02 Smudge Cells Present(A ) None Seen 04/10/2023 10:39 AM EST [facility] 56-02 Blood Venous blood specimen / Unknown Venipuncture / Unknown 04/10/2023 10:24 AM EST 04/10/2023 10:24 AM EST Scout Huddleston MD LAB BLOOD ORDERA BLES [facility] 56- [address] [place] [address] * (ABNORMAL) DIFFERENTIAL, AUTOMATED (04/10/2023 10:24 AM EST) WBC 20.00(H) 4.00 - 10.80 K/uL 04/10/2023 10:39 AM [facility] 56-02 Neutrophils % 16.0(L) 40.0 - 75.0 % 04/10/2023 10:39 AM [facility] 56-02 Lymphocytes % 78.6(H) 18.0 - 42.0 % 04/10/2023 10:39 AM EST [facility] 56-02 Monocytes % 5.0 1.0 - 11.0 % 04/10/2023 10:39 AM [facility] 56-02 Eosinophils % 0.2 0.0 - 6.0 % 04/10/2023 10:39 AM [facility] 56-02 Basophils % 0.2 0.0 - 2.0 % 04/10/2023 10:39 AM [facility] 56-02 Absolute Neutrophils 3.22 1.80 - 7.70 K/uL 04/10/2023 10:39 AM [facility] 56-02 Absolute Lymphocytes 15.72(H) 1.00 - 4.80 K/ul 04/10/2023 10:39 AM [facility] 56-02 Absolute Monocytes 0.99 0.00 - 1.10 K/uL 04/10/2023 10:39 AM [facility] 56-02 Absolute Eosinophils 0.04 0.00 - 0.70 K/uL 04/10/2023 10:39 AM [facility] 56-02 Absolute Basophils 0.03 0.00 - 0.20 K/uL 04/10/2023 10:39 AM [facility] 56-02 Blood Venous blood specimen / Unknown Venipuncture / Unknown 04/10/2023 10:24 AM EST 04/10/2023 10:24 AM EST Scout Huddleston MD LAB BLOOD ORDERA BLES [facility] 56-02 [address] [place] [address] * (ABNORMAL) CBC (04/10/2023 10:24 AM EST) WBC 20.00(H) 4.00 - 10.80 K/uL 04/10/2023 10:39 AM EST [facility] 56- RBC 2.93 4.50 - 5.25 M/uL 04/10/2023 10:39 AM EST [facility] 56-02 HGB 9.6(L) 14.0 - 16.8 g/dL 04/10/2023 10:39 AM [facility] 56- HCT 28.8(L) 40.0 - 48.4 % 04/10/2023 10:39 AM [facility] 56- MCV 98.3 82.0 - 99.5 fL 04/10/2023 10:39 AM EST [facility] 56 MCH 32.8 27.0 - 34.0 pg 04/10/2023 10:39 AM EST [facility] 56 MCHC 33.3 32.0 - 36.0 g/dL 04/10/2023 10:39 AM EST [facility] 56 RDW 19.3 11.5 - 15.5 % 04/10/2023 10:39 AM [facility] 56-02 PLT 280 140 - 400 K/uL 04/10/2023 10:39 AM [facility] 56-02 MPV 9.4 6.6 - 11.1 fL 04/10/2023 10:39 AM [facility] 56-02 Blood Venous blood specimen / Unknown Venipuncture / Unknown 04/10/2023 10:24 AM EST 04/10/2023 10:24 AM EST Scout Huddleston MD LAB BLOOD ORDERA BLES [facility] [address] [place], [place] [id number] documented in this encounter Visit Diagnoses Diagnosis Gall bladder [...] Advance Directives occurred with: Patient Care Teams Concrete Form Setter And Finisher Relationship Specialty Start Date End Date Chema Combs MD [address], [place] [phone] PCP - General Family Medicine 07/02/18 documented as of this encounter
--- OUTSIDE RECORDS SUMMARY | 2023-05-22 14:51 | External Medical Summary | Summary of Care ---
Author Name Unknown Organization [facility] Address [address] [facility] [place] [address] Phone [phone] Care Team Providers Care Learning Support Resource Room Teacher Name Role Phone Chema Combs MD Primary Care Provider [phone] Reason for Visit * Reason Comments Chemotherapy Imfinzi/Gemzar/Cispl atin * Episode Based Medications (Routine) - Authorized Specialty Diagnoses / Procedures Referred By Contac t Referred To Contact Diagnoses Encounter for antineoplastic chemotherapy Gall bladder disease Carcinoma of gallbladder (HCC) Procedures AL CISPLATIN 10 MG INJECTION AL FOSAPREPITANT INJECTION AL IN GEMCITABINE HCL NOS 200MG AL INJ., DURVALUMAB, 10 MG Scout Huddleston MD [address] [place] [address] Anc Hem/Onc Scene Chandrika DEPT CLOSED - 04/09/23 [address] [place] [address] Referral ID Status Reason Start Date Expiration Date V isits Requested Visits Authorized [id number] Authorized 01/17/2023 01/18/2024 999 [id number] Encounter Details Date Type Department Care Team (Latest Contact Info) Description 04/11/2023 8:30 AM EST Hem/Onc Treatment Hematology/Oncolog y Treatment, [place] [address] [place] [address] Chandrika, Chair 4 Hem Onc Scenery [address] [place] [address] Encounter for antineoplastic chemotherapy*; Gall bladder disease; [...] Description 04/19/2023 8:30 AM EST Laboratory Laboratory [facility] [place] [address] [facility] [place] [phone] [place] [address] 04/19/2023 9:30 AM EST Hem/Onc Treatment Hematology/Oncology Treatment, [place] [address] [facility] [place] [address] 04/25/2023 9:00 AM EST Imaging Radiology [facility] [address] [place] [address] 05/01/2023 9:30 AM EST Laboratory [facility], [address] [phone] [place], Lab Lock [address] [place] [address] 05/02/2023 9:30 AM EST Office Visit Hematology/Oncology [facility] [address] [facility] [place] [address] Fernanda Taylor CRNP [address] [place] [address] [place] [address] 05/02/2023 10:00 AM EST Hem/Onc Treatment Hematology/Oncology Treatment, [place] [address] [place] [address] 06/11/2023 8:20 AM EST Office Visit [facility] [address] [place] [phone] Chema Combs MD [address] [place] [address] 09/19/2023 1:30 PM EDT Office Visit Cardiology, [facility] [address] [place] [address] Prashant Ruiz DO [address] [place] [address] Scheduled Orders Name Type Priority Associated Diagnoses [...] 08/29/2016 LUNG CANCER SCREENING - USE SMARTSET 87588 Completed 10/01/2017 Zoster Vaccines Completed 12/14/2019, 09/24, 02/16/2013 Influenza Vaccine (FLU shot) Completed , 04/06/2022, 02/24/2021, Additional history exists GARDASIL-HPV IMMUNIZATION SERIES Aged Out No longer eligible based on patient's age to complete this topic Hepatitis B Aged Out No longer eligi ble based on patient's age to complete this topic documented as of this encounter Medical Devices Implanted Type Area Drop Hammer Mechanic Device Identifier Shelf Expiration Date Model / Serial / Lot Port Implant W/8f Poly Cath - [id number] Implanted:Qty : 1 on 02/12/2023 at [facility] Right: Chest CR BARD : PERIPHERAL VASCULAR [id number] 04/25/2024 [id number] / / [id number] documented as of this encounter Visit Diagnoses [...] PRN Other, Hypersensitivity Reaction, Starting on Tran 04/11/23 at 0811, Until Sat04/12/23 at 0810, For 24 hours EPINEPHrine 1 MG/ML inj 0.3 mg 0.3 mg, Intramuscular, ONCE PRN Other, Hypersensitivity Reaction or Anaphylaxis, Starting on Tran 04/11/23 at 0811, Until Sat04/12/23 at 0810, For 24 hours hEParin 100 UNIT/ML Lock Flush inj 500 Units 500 Units (5 mL), IV Lock, PRN Other, IV Flush, Starting on Tran 04/11/23 at 0811, Until Sat04/12/23 at 0810, For 24 hours, Do not flush if lock, PICC, or central line not in place; IV infusing or unable to flush. Given 04/11/2023 2:46 PM EST 500 Units Hydrocortisone Sod Suc (PF) (Solu-Cortef) inj 100 mg 100 mg, IV Push, ONCE PRN Other, Hypersensitivity Reaction, Starting on Tran 04/11/23 at 0811, Until Sat04/12/23 at 0810, For 24 hours NSS 1,000 mL with magnesium sulfate 1 g infusion Intravenous, at 500 mL/hr Administer over 2 Hours, Post-cisplatin hydration, CONTINUOUS, Starting on Tran 04/11/23 at 1045, Until Discontinued Start Infusion 04/11/2023 12:29 PM EST 500 mL/hr NSS infusion 500 mL, Intravenous, at 50 mL/hr, CONTINUOUS, Starting on Sat04/11/23 at 0915, Until Sat04/11/23 at 1914 Start Infusion 04/11/2023 8:35 AM EST 500 mL 50 mL/hr oxygen GAS Inhalation, OXYGEN, First dose on Sat04/11/23 at 0845, Until Discontinued, Device/Managed by: Low Flow Device, Goal SPO2 (%): 91-95, Starting Device: Nasal Cannula, Inital Flow Rate (LPM): 2, Lowest Support: Nasal [...] Push, PRN Other, IV Flush, Starting on Sat04/11/23 at 0811, Until Sat04/12/23 at 0810, For 24 hours, Do not flush if lock, PICC, or central line not in place; IV infusing or unable to flush. Given 04/11/2023 2:46 PM EST 10 mL Inactive Administered Medications - up to 3 most recent administrations Medication Order MAR Action Action Date Dose Rate Site CISplatin (Platinol) 58 mg in NSS 500 mL infusion 58 mg (25 mg/m2 2.32 m2 Treatment Plan BSA from Recorded weight), IV Piggyback, Administer over 60 Minutes, PROTECT FROM LIGHT, ONCE, 1 dose, On Sat04/11/23 at 0945 Start Infusion 04/11/2023 11:17 AM [...] 10:35 AM EST 2,400 mg 500 mL/hr NSS infusion FOR HYDRATION Intravenous, at 500 mL/hr Administer over 2 Hours, ONCE, 1 dose, On Tran 04/11/23 at 0845 Start Infusion 04/11/2023 8:30 AM EST 1,000 mL 500 mL/hr potassium chloride ER tab 20 mEq 20 mEq, Oral, ONCE, On Tran 04/11/23 at 1045, For 1 dose, This med should NOT be Crushed or Chewed Give with post-hydration. Hold if serum potassium is greater than or equal to 5 mmol/L. Given 04/11/2023 12:28 PM EST 20 mEq documented in this encounter Advance Directives Latest Code Status on File Code Status Date Activated Date Inactivated Comments Full Code 12/27/2022 3:40 PM 01/01/2023 8:39 PM This or aj reflects the patients wishes and were consensually agreed upon. Question Answer Comments Discussion of Advance Directives occurred with: Patient Care Teams Learning Support Resource Room Teacher Relationship Specialty Start Date End Date Chema Combs MD [address] [place], [place] [phone] PCP - General Family Medicine 07/02/18 documented as of this encounter
--- OUTSIDE RECORDS SUMMARY | 2023-05-22 14:51 | External Medical Summary ---
Author Name Unknown Address Unknown Organization K09:[facility] [place] [address] Laboratory Report Ordering Provider Test Date Status MARLON ORTEGA 04/10/2023 10:24:21 Final Observation Date Value Abnormality Reference (Units ) Status SYNC LEUKOCYTES IN BLOOD BY AUTOMATED COUNT 04/10/2023 10:24:21 20.00 Above high normal 4.00-10.80 (K/uL) Final Segs 04/10/2023 10:24:21 16.0 Below low normal 40.0-75.0 (%) Final Lymphs % 04/10/2023 10:24:21 78.6 Above high normal 18.0-42.0 (%) Final Monos 04/10/2023 10:24:21 5.0 1.0-11.0 (%) Final Eosinophils 04/10/2023 10:24:21 0.2 0.0-6.0 (%) Final Basos 04/10/2023 10:24:21 0.2 0.0-2.0 (%) Final Absolute Segs 04/10/2023 10:24:21 3.22 1.80-7.70 (K/uL) Final Lymphs, absolute 04/10/2023 10:24:21 15.72 Above high normal 1.00-4.80 (K/ul) Final Monos, Abs 04/10/2023 10:24:21 0.99 0.00-1.10 (K/uL) Final Eos, Abs 04/10/2023 10:24:21 0.04 0.00-0.70 (K/uL) Final Basos, Abs 04/10/2023 10:24:21 0.03 0.00-0.20 (K/uL) Final Performing Location [facility] [address] [address]
--- OUTSIDE RECORDS SUMMARY | 2023-05-22 14:51 | External Medical Summary ---
Author Name Unknown Address Unknown Organization K09:[facility] [place] [address] Laboratory Report Ordering Provider Test Date Status MARLON ORTEGA 04/10/2023 10:24:21 Final Observation Date Value Abnormality Reference (Units ) Status BUN 04/10/2023 10:24:21 26 Above high normal 6-20 (mg/dL) Final Creatinine 04/10/2023 10:24:21 1.3 Above high normal 0.6-1.2 (mg/dL) Final Glomerular filtration rate/1.73 sq M.predicted [Volume Rate/Area] in Serum, Plasma or Blood by Creatinine-based formula (CKD-EPI) 04/10/2023 10:24:21 61 >=60 (mL/min) Final eGFR is calculated based on the CKD-EPI 2020 equation SODIUM 04/10/2023 10:24:21 140 135-146 (m mol/L) Final Potassium 04/10/2023 10:24:21 4.6 3.5-5.1 (m mol/L) Final Cl 04/10/2023 10:24:21 107 98-107 (mm ol/L) Final CO2 04/10/2023 10:24:21 26 22-32 (mmo l/L) Final Anion gap 04/10/2023 10:24:21 7 7-15 (mmol /L) Final Glucose 04/10/2023 10:24:21 135 Above high normal 70 -120 (mg/dL) Final Albumin 04/10/2023 10:24:21 3.9 3.8-5.0 (g /dL) Final AST (Aspartate aminotransferase) 04/10/2023 10:24:21 26 10-50 (U/L) Fin al Alk Phos 04/10/2023 10:24:21 132 Above high normal 35 -130 (U/L) Final Bilirubin, Total 04/10/2023 10:24:21 0.3 <=1 .2 (mg/dL) Final Calcium 04/10/2023 10:24:21 9.3 8.4-10.2 ( mg/dL) Final Protein 04/10/2023 10:24:21 6.4 6.0-8.3 (g /dL) Final ALT (Alanine aminotransferase) 04/10/2023 10:24:21 20 10-50 (U/L) Donell matthew Performing Location [facility] [address] [place] [address]
--- OUTSIDE RECORDS SUMMARY | 2023-05-22 14:51 | External Medical Summary | Summary of Care ---
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) Procedures CT CHEST/ABDOMEN/PELVIS WITH IV CONTRAST WITHOUT ORAL CONTRAST Scout Huddleston MD [address] [facility] [place] [address] Referral ID Status Reason Start Date Expiration Date V isits Requested Visits Authorized [id number] Pending Review 04/29/2023 999 999 Reason for Visit * Reason Comments Chemotherapy Chemo/recheck Encounter Details Date Type Department Care Team (Late st Contact Info) Description 04/10/2023 11:00 AM EST Office Visit Hematology/Oncology [facility] [address] [place] [address] Scout Huddleston MD [address] [facility] [place] [address] 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)*; Carcinoma of gallbladder (HCC) Allergies Active Allergy [...] CD)Indications:HTN, goal below 150/90,PAF (paroxysmal atrial fibrillation) ([facility]) TAKE 1 CAPSULE BY MOUTH EVERY DAY 90 Capsule 3 06/28/2022 Active Eliquis 5 MG Oral Tablet (Apixaban)Indicatio ns:PAF (paroxysmal atrial fibrillation) ([facility]) TAKE 1 TABLET BY MOUTH TWICE A DAY 180 Tablet 3 06/28/2022 Active Metoprolol Tartrate 50 MG Oral Tablet (Lopressor)Indicati ons:HTN, goal below 150/90,PAF (paroxysmal atrial fibrillation) ([facility]) TAKE 1 TABLET BY MOUTH TWICE A [...] Sign Reading Time Taken Comments Blood Pressure 120/67 04/10/2023 10:54 AM EST Pulse 83 04/10/2023 10:54 AM EST Temperature 36.8 C (98.2 F) 04/10/2023 10:[address] Respiratory Rate 16 04/10/2023 10:54 AM EST Oxygen Saturation 95% 04/10/2023 10:54 AM EST Inhaled Oxygen Concentration - - Weight 105.7 kg (233 lb) 04/10/2023 10:54 AM EST Height 182.9 cm (6') 04/10/2023 10:54 AM EST Body Mass Index 31.6 04/10/2023 10:54 AM EST documented in this [...] as of this encounter Progress Notes * Scout Huddleston MD - 04/10/2023 10:57 AM EST Outpatient Consult Note Data Source: Patient, [facility] record. Data Source: Patient, [facility] record. 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 History of CLL Current Treatment: Cisplatin plus gemcitabine and durvalumab Previous Treatment: Chlorambucil and ibrutinib Oncologic History : 72-year-old male with history of COPD, hyperlipidemia, hypertension, paroxysmal [...] but not limited to upper GI tract, agxtnol-dewcggrnfko-bsdazrroyt system and lung. Recommend correlation with clinical [...] of breast cancer. Grandfatherwas diagnosed of lung cancer Interval History: He is feeling more tired. Denies any headache, dizziness, blurred vision, chest pain, nausea, vomiting, diarrhea constipation, fever, night sweats, weight loss. LABS/IMAGING: Results for orders placed or performed in visit on 04/10/23 COMPREHENSIVE METABOLIC PANEL Result Value Ref Range BUN 26 (H) 6 - 20 mg/dL Creatinine 1.3 (H) 0.6 - 1.2 mg/dL Estimated Glomerular Filtration Rate 61 >=60 mL/min Sodium 140 135 - 146 mmol/L Potassium 4.6 3.5 - 5.1 mmol/L Chloride 107 98 - 107 mmol/L CO2 26 22 - 32 mmol/L Anion Gap 7 7 - 15 mmol/L Glucose 135 (H) 70 - 120 mg/dL Albumin 3.9 3.8 - 5.0 g/dL AST 26 10 - 50 U/L Alkaline Phosphatase 132 (H) 35 - 130 U/L Bilirubin, Total 0.3 <=1.2 mg/dL Calcium 9.3 8.4 - 10.2 mg/dL Protein 6.4 6.0 - 8.3 g/dL ALT 20 10 - 50 U/L MAGNESIUM Result Value Ref Range Magnesium 1.7 1.5 - 2.6 mg/dL CBC Result Value Ref Range WBC 20.00 (H) 4.00 - 10.80 K/uL RBC 2.93 4.50 - 5.25 M/uL HGB 9.6 (L) 14.0 - 16.8 g/dL HCT 28.8 (L) 40.0 - 48.4 % MCV 98.3 82.0 - 99.5 fL MCH 32.8 27.0 - 34.0 pg MCHC 33.3 32.0 - 36.0 g/dL RDW 19.3 11.5 - 15.5 % PLT 280 140 - 400 K/uL MPV 9.4 6.6 - 11.1 fL DIFFERENTIAL, AUTOMATED Result Value Ref Range WBC 20.00 (H) 4.00 - 10.80 K/uL Neutrophils % 16.0 (L) 40.0 - 75.0 % Lymphocytes % 78.6 (H) 18.0 - 42.0 % Monocytes % 5.0 1.0 - 11.0 % Eosinophils % 0.2 0.0 - 6.0 % Basophils % 0.2 0.0 - 2.0 % Absolute Neutrophils 3.22 1.80 - 7.70 K/uL Absolute Lymphocytes 15.72 (H) 1.00 - 4.80 K/ul Absolute Monocytes 0.99 0.00 - 1.10 K/uL Absolute Eosinophils 0.04 0.00 - 0.70 K/uL Absolute Basophils 0.03 0.00 - 0.20 K/uL DIFFERENTIAL, TECHNOLOGIST REVIEW Result Value Ref Range nRBCs Reactive Lymphocytes Present (A) None Seen Smudge Cells Present (A) None Seen Creatinine is 1.3 which is stable and hemoglobin was 9.6. REVIEW OF SYSTEMS: General: No Fever, chills, night sweats, or weight loss. HEENT: No change in visual acuity, blurred or double vision. No epistaxis, facial pain, nasal discharge or change in hearing. Denies dysphagia, no muscosal ulceration, or sores noted. Cardiovascular: No chest pain, WIGGINS, or palpitations Respiratory: No shortness of breath, cough, hemoptysis, or pleuritic chest pain Gastrointestinal: No abdominal pain, nausea, vomiting, diarrhea, rectal pain or bleeding Genitourinary: Denies Hematuria or dysuria Musculoskeletal: Generalized weakness and fatigue Psychiatric: No vegetative signs of depression Endocrine: No symptoms of hypothyroidism or hyperglycemia Hematologic: No bleeding or lymph nodes noted As mentioned above, all of the systems were reviewed in full and are unremarkable. Past Medical History: Diagnosis Date COPD, mild (HCC) HLD (hyperlipidemia) HTN, goal below 140/80 INFORMATION 04/2014 10 year cardiovascular risk 20% MEDICATION USE AGREEMENT 11/19/2016 Paroxysmal A-fib (HCC) POLST (Physician Orders for Life-Sustaining Treatment) 11/12/2013 Prediabetes 04/2012 PVD (peripheral vascular disease) ([facility]) Current Outpatient Medications Medication Sig Dispense Refill VITAMIN D 1000 UNITS PO CAPS Take 2 Capsules by mouth in the morning. 60 Cap 11 Acetaminophen 500 MG Capsule Take 2 Capsules by mouth every 6 hours as needed for Fever >38C(100.5F) or Pain, Mild. aspirin enteric coated 81 MG TBEC Take 1 Tablet by mouth in the morning. Dqchjyjcfao-Ahjongynf-Ptipgq 100-62.5-25 MCG/ACT Aerosol Powder Breath Activated Inhale [...] No current facility-administered medications for this visit. Social History Tobacco Use Smoking status: Former Packs/day: 2.00 Years: 35.00 Additional pack years: 0.00 Total pack years: 70.00 Types: Cigarettes Quit date: 03/10/2010 Years since quittin.0 Smokeless tobacco: Never Vaping Use Vaping Use: Never used Substance Use Topics Alcohol use: No Comment: Social drinker prior to 2009 Drug use: Never Review of patient's allergies indicates: Allergen Reactions Lisinopril Cough PHYSICAL EXAMINATION: General Appearance: Healthy appearing patient in no acute distress BP 120/67 (BP Site: Left Arm, BP Position: Sitting, BP Cuff Size: Large) | Pulse 83 | Temp 36.8 C(98.2 F) (Tympanic) | Resp 16 | Ht 1.829 m (6') | Wt 105.7 kg (233 lb) | SpO2 95% | BMI 31.60 kg/m | BSA 2.32 m Vitals reviewed. HEENT: No oral or pharyngeal masses, ulceration or thrush noted, no sinus tenderness. Neck is supple with no thyromegaly or JVD noted. Lymph Nodes: No lymphadenopathy noted in the occipital, pre and post auricular, cervical, supra andinfraclavicular, axillary, epitrochlear, inguinal, and popliteal region. Lungs/Thorax: Clear to auscultation, no accessory muscles of respiration being used. Heart: Regular rate and rhythm, normal S1, S2 Abdomen: Soft, nontender, bowel sounds present, no appreciable hepatosplenomegaly, no palpable masses Extremeties: Good pulses bilaterally, no peripheral edema. ASSESSMENT: 72-year-old male with history of chronic lymphocytic leukemia initially was diagnosed in 2007 and was treated initially with chlorambucil. Subsequently was treated with ibrutinib because of the high white cell count. Ibrutinib was discontinued because of the episodes of atrial fibrillation and lungtoxicity thought to be because of ibrutinib. He was admitted to the hospital with complaint of abdominal pain and was found to have a mass involving the liver. There was a question of infection was treated with antibiotic. The biopsy from the liver masses consistent with adenocarcinoma. 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 Currently he is receiving gemcitabine plus cisplatin and durvalumab with overall good tolerance. His complaining generalized weakness. There is mild decrease in the hemoglobin level. Overall electrolytes and creatinine are stable. Discussed with the patient in detail about diagnosis reviewed all the available blood test result with them. PLAN: Continue current treatment. He will return to clinic for follow-up in [address] scan of abdomen and pelvis. The patient voiced understanding of all of the above. All questions and concerns were addressed in an apparently satisfactory manner. Scout Huddleston MD (This note was completed using the dictation program Fluency Direct. As such, there may be misspellings, word substitutions, or other variations that should not change the essence of the clinical content of this encounter note. If there is need for further clarification, please direct questions to me.) documented in this encounter Nursing Notes * Marcela Torres, COAT FELLER - 04/10/2023 10:55 AM EST Patient identifed by name and birthdate Do you have any concerns about pain management for today's visit? No Living Will or Advance Directive for Health Care as noted on the problem list. [facility] is a way you can talk to your provider on line through e-mail. Would you like to sign up? I can activate it for you? ALREADY ACTIVE Filed Vitals: 04/10/23 1054 BP: 120/67 Pulse: 83 Resp: 16 Temp: 36.8 C (98.2 F) TempSrc: Tympanic SpO2: 95% Weight: 105.7 kg (233 lb) Height: 1.829 m (6') Patient was instructed to not get up on the exam table/exam chair until directed and assisted by their provider; patient is to remain seated in the chair/ wheelchair/ exam table/ exam chair for fall prevention and safety reasons. Patient is aware to have assistance to step down off exam table/exam chair with personnel. Patient voiced full comprehension of instructions. documented in this encounter Plan of Treatment Upcoming Encounters Date Type Department Care Team (Late st Contact Info) Description 04/11/2023 8:30 AM EST Hem/Onc Treatment Hematology/Oncology Treatment, [place] [address] [place] [address] Park, Chair 4 Hem Onc Scenery [address] [place] [address] 04/25/2023 9:00 AM EST Imaging Radiology [facility], [place] [address] [facility] [place] [address] 06/11/2023 8:20 AM EST Office Visit [facility] [address] [place] [facility] [place] [id number] Chema Combs MD [address] [place] [address] 09/19/2023 1:30 PM EDT Office Visit Cardiology, [facility] [address] [facility] [place] [address] Prashant Ruiz DO [address] [place] [address] Scheduled Orders Name Type Priority Associated Diagnoses Orde r Schedule CT CHEST/ABDOMEN/PELVI S WITH IV CONTRAST WITHOUT ORAL CONTRAST Medical Imaging Routine 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) Expected: 04/29/2023, Expires: 05/10/2024 Scheduled Procedures Name Priority Associated Diagnoses Date/Ti [...] IN PAST YEAR FOR COPD 03/29/2024 03/29/2023 GFR 04/10/2024 04/10/2023, 06/2022, 03/20/2023, Additional history exists Colonoscopy 07/06/2026 07/06/2016, 07/06/2016 [...] 08/29/2016 LUNG CANCER SCREENING - USE SMARTSET 67090 Completed 10/01/2017 Zoster Vaccines Completed 12/14/2019, 09/24, 02/16/2013 Influenza Vaccine (FLU shot) Completed , 04/06/2022, 02/24/2021, Additional history exists GARDASIL-HPV IMMUNIZATION SERIES Aged Out No longer eligible based on patient's age to complete this topic Hepatitis B Aged Out No longer eligi ble based on patient's age to complete this topic documented as of this encounter Medical Devices Implanted Type Area Electronics Assembler Device Identifier Shelf Expiration Date Model / Serial / Lot Port Implant W/8f Poly Cath - [id number] Implanted:Qty : 1 on 02/12/2023 at [facility] Right: Chest CR BARD : PERIPHERAL VASCULAR [id number] 04/25/2024 [id number] / [id number] documented as of this encounter Visit Diagnoses Diagnosis 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
--- OUTSIDE RECORDS SUMMARY | 2023-05-22 14:52 | External Medical Summary ---
Author Name Unknown Address Unknown Organization K01:[facility] [place] - [address] [place] [address] Laboratory Report Ordering Provider Test Date Status DELIO GOLD 03/28/2023 08:27:44 Final Observation Date Value Abnormality Reference (Units ) Status MYCODE SPECIMEN-SST 03/28/2023 08:27:44 Freezing of extracted DNA, whole blood and/or serum. Final Performing Location [facility] [place] - [address] [place] [address]
--- OUTSIDE RECORDS SUMMARY | 2023-05-22 14:52 | External Medical Summary | Summary of Care ---
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); Encounter for antineoplastic chemotherapy; Carcinoma of gallbladder (HCC) Allergies Active Allergy Reactions Criticality Noted Date Comments Lisinopril Cough Low 08/18/2009 documented as of this encounter (statuses as of 03/28/2023) Medications Medication Sig Dispensed Refills Start Date [...] 100 MG TabletIndications:C hronic leukemia in remission ([facility]),Elevated blood uric acid level Take 1 Tab [...] CD)Indications:HTN, goal below 150/90,PAF (paroxysmal atrial fibrillation) ([facility]) TAKE 1 CAPSULE BY MOUTH EVERY DAY 90 Capsule 3 06/28/2022 Active Eliquis 5 MG Oral Tablet (Apixaban)Indicatio ns:PAF (paroxysmal atrial fibrillation) ([facility]) TAKE 1 TABLET BY MOUTH TWICE A DAY 180 Tablet 3 06/28/2022 Active Metoprolol Tartrate 50 MG Oral Tablet (Lopressor)Indicati ons:HTN, goal below 150/90,PAF (paroxysmal atrial fibrillation) ([facility]) TAKE 1 TABLET BY MOUTH [...] External Cream (Emla)Indications:C arcinoma of gall bladder ([facility]) APPLY TO SKIN OVER MEDIPORT [...] as of this encounter (statuses as of 03/28/2023) Active Problems Problem Noted Date Diagnosed Date [...] as of this encounter (statuses as of 03/28/2023) Resolved Problems Problem Noted Date Diagnosed Date [...] as of this encounter (statuses as of 03/28/2023) Immunizations Name Administration Dates Next Due COVID-19 [...] or making decisions? (5 years old or older No 12/27/2022 documented as of this encounter Plan of Treatment Upcoming Encounters Date Type Department Care Team (Late st Contact Info) Description 03/29/2023 9:00 AM EDT Hem/Onc Treatment Hematology/Oncology Treatment, [place] [address] [facility] [address] [place] [address] Chandrika, Chair 3 Hem Onc Scenery [address] [place] [address] 04/10/2023 10:30 AM EST Laboratory Laboratory [facility] [place] [address] [place] [phone] Chandrika, Lab [facility] [address] [facility] [place] [address] 04/10/2023 11:00 AM EST Office Visit Hematology/Oncology [facility] [place] [address] [place] [address] Scout Huddleston MD [address] [place] [address] 04/11/2023 8:30 AM EST Hem/Onc Treatment Hematology/Oncology Treatment, [place] [address] [facility] [place] [address] Chandrika, Chair 4 Hem Onc Scenery [address] [facility] [place] [address] 06/11/2023 8:20 AM EST [address] [phone] Chema Combs MD [address] [place] [address] 09/19/2023 1:30 PM EDT Office Visit Cardiology, [facility] [address] [place] [address] Prashant Ruiz, [address] [place] [address] Pending Results Name Type Priority Associated Diagnoses Date /Time MYCODE SUBSEQUENT ADULT Lab Routine [employer] Other*[id number] 03/28/2023 8:27 AM EDT CBC WITH WBC DIFFERENTIAL Lab STAT Gall bladder disease 03/28/2023 8:27 AM EDT COMPREHENSIVE METABOLIC PANEL Lab STAT Gall bladder disease 03/28/2023 8:27 AM EDT TSH WITH FREE T4 IF INDICATED Lab STAT Gall bladder disease 03/28/2023 8:27 AM EDT MAGNESIUM Lab STAT 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) 03/28/2023 8:27 AM EDT MYCODE SST1 Lab Routine [employer] Other*[id number] 03/28/2023 8:27 AM EDT MYCODE SST2 Lab Routine [employer] Other*[id number] 03/28/2023 8:27 AM EDT CBC Lab STAT Gall bladder disease 03/28/2023 8:27 AM EDT DIFFERENTIAL, AUTOMATED Lab STAT Gall bladder disease 03/28/2023 8:27 AM EDT Scheduled Procedures Name Priority Associated Diagnoses Date/Ti me COLONOSCOPY FLEXIBLE PROXIMA L DIAGNOSTIC Recall Encounter for screening colonoscopy Health Maintenance Due Date Last Done Comments Alpha-1 Antitrypsin 1968 Hepatitis C Screening 1968 Cologuard 1995 Fecal Occult Blood Test 1995 Sigmoidoscopy 1995 Albumin/Creatinine Ratio 06/19/2019 017, 12/13/2014, 03/17/2014, Additional history exists Depression Screening 04/14/2021 04/14/2020, 11/11/19 15 COVID-19 Vaccine (4 - 2023-24 season) 2023 06/07/2021, 08/01/2020, 06/30/2020 B-12 12/12/2023 12/11/2022 HbA1c 12/12/2023 12/11/2022, 06/28, 07/06/2021, Additional history exists GFR 03/20/2024 03/20/2023, 02/24, 02/28/2023, Additional history exists O2 ASSESSMENT COMPLETED IN PAST YEAR FOR COPD 03/21/2024 03/21/2023 Colonoscopy 07/06/2026 07/06/2016, 07/06/2016 Colorectal Cancer Screening [...] 08/29/2016 LUNG CANCER SCREENING - USE SMARTSET 59559 Completed 10/01/2017 Zoster Vaccines Completed 12/14/2019, 09/24, 02/16/2013 Influenza Vaccine (FLU shot) Completed , 04/06/2022, 02/24/2021, Additional history exists GARDASIL-HPV IMMUNIZATION SERIES Aged Out No longer eligible based on patient's age to complete this topic Hepatitis B Aged Out No longer eligi ble based on patient's age to complete this topic documented as of this encounter Medical Devices Implanted Type Area Beverage Host Device Identifier Shelf Expiration Date Model / Serial / Lot Port Implant W/8f Poly Cath - [id number] Implanted:Qty : 1 on 02/12/2023 at [facility] Right: Chest CR BARD : PERIPHERAL VASCULAR [id number] 04/25/2024 [id number] / / [id number] documented as of this encounter Visit Diagnoses Diagnosis [employer] Other*[id number] Gall bladder disease Unspecified disorder of gallbladder [...] Advance Directives occurred with: Patient Care Teams Analysis Specialist Relationship Specialty Start Date End Date Chema Combs MD [address] [place], [place] [phone] PCP - General Family Medicine 07/02/18 documented as of this encounter
--- OUTSIDE RECORDS SUMMARY | 2023-05-22 14:52 | External Medical Summary ---
Author Name Unknown Address Unknown Organization K01:LABORATORY [facility] - [facility] [address] [place] [address] Laboratory Report Ordering Provider Test Date Status MARLON ORTEGA 03/28/2023 08:27:44 Final Observation Date Value Abnormality Reference (Units ) Status WBC, Total 03/28/2023 08:27:44 19.68 Above high normal 4.00-10.80 (K/uL) Final RBC 03/28/2023 08:27:44 3.49 4.50-5.25 (M/uL) Final Hemoglobin 03/28/2023 08:27:44 11.1 Below low normal 14.0-16.8 (g/dL) Final HCT 03/28/2023 08:27:44 33.3 Below low normal 40.0-48.4 (%) Final MCV 03/28/2023 08:27:44 95.4 82.0-99.5 (fL) Final MCH 03/28/2023 08:27:44 31.8 27.0-34.0 (pg) Final MCHC 03/28/2023 08:27:44 33.3 32.0-36.0 (g/dL) Final RDW 03/28/2023 08:27:44 16.6 11.5-15.5 (%) Final Platelets 03/28/2023 08:27:44 320 140-400 (K/uL) Final MPV 03/28/2023 08:27:44 9.5 6.6-11.1 (fL) Final Nucleated erythrocytes/100 leukocytes [Ratio] in Blood by Automated count 03/28/2023 08:27:44 0 <=0 (/100 WBCs) Final Performing Location LABORATORY [facility] - [address] [id number]
--- OUTSIDE RECORDS SUMMARY | 2023-05-22 14:52 | External Medical Summary ---
Author Name Unknown Address Unknown Organization K01:[facility] [place] [address] [address] Laboratory Report Ordering Provider Test Date Status MARLON ORTEGA 03/28/2023 08:27:44 Final Observation Date Value Abnormality Reference (Units ) Status TSH 03/28/2023 08:27:44 2.96 0.27-4.20 (uIU/mL) Final Performing Location LABORATORY C - [address] [place] [address]
--- OUTSIDE RECORDS SUMMARY | 2023-05-22 14:52 | External Medical Summary | Summary of Care ---
Author Name Unknown Organization [facility] Address [address] [facility] [place] [address] Phone [phone] Care Team Providers Care Sexual Assault Counselor Name Role Phone Chema Combs MD Primary Care Provider [phone] Reason for Visit * Reason Comments Back Pain Encounter Details Date Type Department Care Team (Late st Contact Info) Description 04/09/2023 9:20 AM EST Office Visit Interventional Pain Center, [facility] [address] [place] [address] Cousins, Chencho Durant, [address] [place] [address] Trochanteric bursitis of right hip*; Myofascial muscle pain Allergies Active Allergy Reactions Criticality Noted Date Comments Lisinopril Cough Low 08/18/2009 documented as of this encounter (statuses as of 04/09/2023) Medications Medication Sig Dispensed Refills Start Date [...] External Cream (Emla)Indications:C arcinoma of gall bladder ([facility]) APPLY TO SKIN OVER MEDIPORT & COVER [...] as of this encounter (statuses as of 04/09/2023) Active Problems Problem Noted Date Diagnosed Date [...] as of this encounter (statuses as of 04/09/2023) Resolved Problems Problem Noted Date Diagnosed Date [...] as of this encounter (statuses as of 04/09/2023) Immunizations Name Administration Dates Next Due COVID-19 [...] as of this encounter Progress Notes * Chencho Mcgowan DO - 04/09/2023 9:13 AM EST [facility] PROCEDURE NOTE Name: Jh Fields Jr. Date: 04/09/2023 Time: 9:13 AM Location: [facility] Service: Pain Management Date of Procedure: 04/09/2023 Diagnosis: Right Greater Trochanteric Bursitis Provider: Chencho Mcgowan DO Procedure: Right Greater Trochanteric Bursa Injection Estimated Blood Loss: none Urine output: None Drains/Implants: None Complications: None Co-morbid conditions: Past Medical History: Diagnosis Date COPD, mild ([facility]) HLD (hyperlipidemia) HTN, goal below 140/80 INFORMATION 04/2014 10 year cardiovascular risk 20% MEDICATION USE AGREEMENT 11/19/2016 Paroxysmal A-fib ([facility]) POLST (Physician Orders for Life-Sustaining Treatment) 11/12/2013 Prediabetes 04/2012 PVD (peripheral vascular disease) ([facility]) Patient Active Problem List Diagnosis Code Chronic 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 ([facility]) C91.10 Dyslipidemia, goal LDL below 100 E78.5 COPD, mild ([facility]) J44.9 POLST (Physician Orders for Life-Sustaining Treatment) Z78.9 HTN, goal below 150/90 I10 Primary osteoarthritis of cervical spine M47.812 Primary osteoarthritis of lumbar spine M47.816 Primary osteoarthritis of one hip M16.10 MEDICATION USE AGREEMENT [id number] Encounter for long-term (current) use of medications Z79.899 PAF (paroxysmal atrial fibrillation) ([facility]) I48.0 Essential tremor G25.0 Prediabetes R73.03 Liver mass R16.0 Transaminitis R74.01 Gall bladder disease K82.9 Encounter for antineoplastic chemotherapy Z51.11 Carcinoma of gallbladder (HCC) C23 [place] [employer] Score: III He is stable with normal heart sounds and lungs clear to auscultation. Tenderness right GTB, trigger point right sacral Technique: Today, we discussed alternative plans, benefits and potential risks which include, but not limited to bleeding, infections, nerve damage, or failure of the procedure. He agreed to proceed with this procedure and an informed written consent was obtained. A time-out was taken to properly identify patient injection sites. The right greater trochanteric region was sterilely prepped with ChloraPrep and infiltrated with 2 mL of 0.25% preservative-free bupivacaine with 40 mg of triamcinolone using a 25 gauge spinal needle. Patient tolerated injection well without immediate complication. Sterile dressing was applied. I also infiltrated a single trigger area in the right lower sacral region with 1 mL of 0.25% preservative-free bupivacaine using a 27 gauge needle after an alcohol prep. He will be re-evaluated on as-needed basis. Chencho Mcgowan DO documented in this encounter Nursing Notes * Rona Rao LPN - 04/09/2023 8:56 AM EST Patient here for right bursa and low back tpi documented in this encounter Plan of Treatment Upcoming Encounters Date Type Department Care Team (Late st Contact Info) Description 04/10/2023 10:30 AM EST Laboratory Laboratory [facility] [address] [place] [phone] Monica Cobos [facility] [address] [place] [address] 04/10/2023 11:00 AM EST Office Visit Hematology/Oncology [facility] [address] [place] [address] Scout Huddleston MD [address] [place] [address] 04/11/2023 8:30 AM EST Hem/Onc Treatment Hematology/Oncology Treatment, [place] [address] [place] [address] [place], Chair 4 Hem Onc Scenery [address] [facility] [place] [address] 06/11/2023 8:20 AM EST Office Visit Family [facility] [address] [place] [phone] Chema Combs MD [address] [place] [address] 09/19/2023 1:30 PM EDT Office Visit Cardiology, [facility] [address] [place] [address] Prashant Ruiz, [address] [place] [address] Scheduled Procedures Name Priority Associated Diagnoses Date/Ti [...] 08/29/2016 LUNG CANCER SCREENING - USE SMARTSET 72736 Completed 10/01/2017 Zoster Vaccines Completed 12/14/2019, 09/24, 02/16/2013 Influenza Vaccine (FLU shot) Completed , 04/06/2022, 02/24/2021, Additional history exists GARDASIL-HPV IMMUNIZATION SERIES Aged Out No longer eligible based on patient's age to complete this topic Hepatitis B Aged Out No longer eligi ble based on patient's age to complete this topic documented as of this encounter Medical Devices Implanted Type Area Referral Clerk Device Identifier Shelf Expiration Date Model / Serial / Lot Port Implant W/8f Poly Cath - [id number] Implanted:Qty : 1 on 02/12/2023 at [facility] Right: Chest CR BARD : PERIPHERAL VASCULAR [id number] 04/25/2024 [id number] / / [id number] documented as of this encounter Visit Diagnoses Diagnosis Trochanteric bursitis of right hip- Primary Enthesopathy of hip region Myofascial muscle pain Mylagia and myositis, unspecified documented in this encounter Advance Directives Latest Code Status on File Code Status Date Activated Date Inactivated Comments Full Code 12/27/2022 3:40 PM 01/01/2023 8:39 PM This or aj reflects the patients wishes and were consensually agreed upon. Question Answer Comments Discussion of Advance Directives occurred with: Patient Care Teams Sexual Assault Counselor Relationship Specialty Start Date End Date Chema Combs MD [address] [place] [address] PCP - General Family Medicine 07/02/18 documented as of this encounter
--- OUTSIDE RECORDS SUMMARY | 2023-05-22 14:52 | External Medical Summary | Summary of Care ---
Author Name Unknown Organization [facility] Address [address] [facility] [address] Phone [phone] Care Team Providers Care Supervisor Knitting Name Role Phone Chema Combs MD Primary Care Provider [phone] Reason for Visit * Reason Comments Chemotherapy Chemo/recheck Encounter Details Date Type Department Care Team (Late st Contact Info) Description 03/20/2023 10:00 AM EDT Office Visit Hematology/Oncology [facility] [address] [facility] [place] [facility] [place] [address] Scotu Huddleston MD [address] [facility] [place] [address] Encounter for antineoplastic chemotherapy*; Gall bladder disease; 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) Allergies Active Allergy Reactions Criticality Noted Date Comments Lisinopril Cough Low 08/18/2009 documented as of this encounter (statuses as of 03/20/2023) Medications Medication Sig Dispensed Refills Start Date [...] External Cream (Emla)Indications:C arcinoma of gall bladder ([facility]) APPLY TO SKIN OVER MEDIPORT & COVER [...] as of this encounter (statuses as of 03/20/2023) Active Problems Problem Noted Date Diagnosed Date [...] as of this encounter (statuses as of 03/20/2023) Resolved Problems Problem Noted Date Diagnosed Date [...] as of this encounter (statuses as of 03/20/2023) Immunizations Name Administration Dates Next Due COVID-19 [...] Sign Reading Time Taken Comments Blood Pressure 119/68 03/20/2023 9:41 AM EDT Pulse 78 03/20/2023 9:41 AM EDT Temperature 36.3 C (97.4 F) 03/20/2023 9:41 AM ED T Respiratory Rate 16 03/20/2023 9:41 AM EDT Oxygen Saturation 97% 03/20/2023 9:41 AM EDT Inhaled Oxygen Concentration - - Weight 103.6 kg (228 lb 6.4 oz) 03/20/2023 9:41 AM EDT Height 182.9 cm (6') 03/20/2023 9:41 AM EDT Body Mass Index 30.98 03/20/2023 9:41 AM EDT documented in this encounter Functional Status Functional [...] Progress Notes * Scout Huddleston MD - 03/20/2023 9:34 AM EDT Outpatient Consult Note Data Source: Patient, Epic record. Data Source: Patient, Epic record. 03/20/2023 9:34 AM Jh Fields Jr. 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 History of CLL Current [...] concerning for obstruction of the cystic duct. General surgery evaluated the patient and planned for follow-up to discuss intervention in the outpatient setting. Ultrasound-guided core biopsy of the liver mass [...] but not limited to upper GI tract, mkardvt-zckkittyonh-umfmhlmufg system and lung. Recommend correlation with clinical [...] Grandfatherwas diagnosed of lung cancer Interval History: Overall clinically he is doing well with good tolerance of the chemotherapy without any significantside effects toxicity. He would episode of upset stomach but no nausea vomiting. Denies any headache, dizziness, blurred vision, chest pain, palpitation abdominal pain or distention, fever, night sweats. His weight is stable. LABS/IMAGING: Results for orders placed or performed in visit on 03/20/23 COMPREHENSIVE METABOLIC PANEL Result Value Ref Range BUN 29 (H) 6 - 20 mg/dL Creatinine 1.2 0.6 - 1.2 mg/dL Estimated Glomerular Filtration Rate 64 >=60 mL/min Sodium 139 135 - 146 mmol/L Potassium 4.1 3.5 - 5.1 mmol/L Chloride 102 98 - 107 mmol/L CO2 26 22 - 32 mmol/L Anion Gap 11 7 - 15 mmol/L Glucose 166 (H) 70 - 120 mg/dL Albumin 4.0 3.8 - 5.0 g/dL AST 30 10 - 50 U/L Alkaline Phosphatase 181 (H) 35 - 130 U/L Bilirubin, Total 0.5 <=1.2 mg/dL Calcium 9.9 8.4 - 10.2 mg/dL Protein 7.1 6.0 - 8.3 g/dL ALT 20 10 - 50 U/L MAGNESIUM Result Value Ref Range Magnesium 1.5 1.5 - 2.6 mg/dL CBC Result Value Ref Range WBC 31.82 (H) 4.00 - 10.80 K/uL RBC 3.79 4.50 - 5.25 M/uL HGB 11.9 (L) 14.0 - 16.8 g/dL HCT 36.0 (L) 40.0 - 48.4 % MCV 95.0 82.0 - 99.5 fL MCH 31.4 27.0 - 34.0 pg MCHC 33.1 32.0 - 36.0 g/dL RDW 16.8 11.5 - 15.5 % PLT 228 140 - 400 K/uL MPV 9.8 6.6 - 11.1 fL DIFFERENTIAL, TECHNOLOGIST REVIEW Result Value Ref Range WBC 31.82 (H) 4.00 - 10.80 K/uL Neutrophils % 29.0 (L) 40.0 - 75.0 % Lymphocytes % 66.0 (H) 18.0 - 42.0 % Monocytes % 3.0 1.0 - 11.0 % Basophils % 1.0 0.0 - 2.0 % Metamyelocytes % 1.0 (H) <=0.0 % Absolute Neutrophils 9.23 (H) 1.80 - 7.70 K/uL Absolute Lymphocytes 21.00 (H) 1.00 - 4.80 K/uL Absolute Monocytes 0.95 0.00 - 1.10 K/uL Absolute Basophils 0.32 (H) 0.00 - 0.20 K/uL Absolute Metamyelocytes 0.32 (H) <=0.00 K/uL nRBCs Reactive Lymphocytes Present (A) None Seen Blood counts and creatinine are acceptable in stable range. REVIEW OF SYSTEMS: General: No Fever, chills, [...] bleeding Genitourinary: Denies Hematuria or dysuria Musculoskeletal: No bone pain Skin: No skin rash or lesions noted Neurologic: No numbness, weakness, neuropathic pain or change in cognitive function Psychiatric: No vegetative signs of depression Endocrine: No symptoms of hypothyroidism or hyperglycemia Hematologic: No bleeding or lymph nodes noted As mentioned above, all of the systems were reviewed in full and are unremarkable. Past Medical History: Diagnosis Date COPD, mild (HCC) HLD (hyperlipidemia) HTN, goal below 140/80 INFORMATION 04/2014 10 year cardiovascular risk 20% MEDICATION USE AGREEMENT 11/19/2016 Paroxysmal A-fib ([facility]) POLST (Physician Orders for Life-Sustaining Treatment) 11/12/2013 [...] 1 Tablet by mouth in the morning. Ltlpffnyham-Nxsdlyeoz-Vzhmau 100-62.5-25 MCG/ACT Aerosol Powder Breath Activated Inhale [...] Healthy appearing patient in no acute distress There were no vitals taken for this visit. Vitals reviewed. HEENT: No oral or pharyngeal [...] Extremeties: Good pulses bilaterally, no peripheral edema. Skin: Normal skin tone with no rash, petechiae, ecchymosis noted. Musculoskeletal: No pain on palpation over bony prominence, no edema, no evidence of gout, no jointor bony deformity ASSESSMENT: 72-year-old male with history of chronic [...] has advanced gallbladder cancer which is unresectable. Options of treatment were discussed with the patient. He also discussed his situation with other subspecialties including Cardiology and Pulmonary. Finally he decided to proceed with palliative chemotherapy including combination of gemcitabine plus cisplatin and durvalumab. He is doing well with good tolerance of chemotherapy and without any significant side effects toxicity. His weight is stable. Blood counts are in acceptable range. Discussed with the patient and daughter about diagnosis reviewed all the available blood test result with them. PLAN: Continue current treatment. He will return to clinic for follow-up in 3 weeks. The patient voiced understanding of all of [...] this encounter Nursing Notes * Marcela Torres, [facility] - 03/20/2023 9:42 AM EDT Patient identifed by name and birthdate Do you have any concerns about pain management for today's visit? No Living Will or Advance Directive for Health Care as noted on the problem list. [facility] is a way you can talk to your provider on line through e-mail. Would you like to sign up? I can activate it for you? ALREADY ACTIVE Filed Vitals: 03/20/23 0941 BP: 119/68 Pulse: 78 Resp: 16 Temp: 36.3 C (97.4 F) TempSrc: Tympanic SpO2: 97% Weight: 103.6 kg (228 lb 6.4 oz) Height: 1.829 m (6') Patient was instructed [...] Care Team (Late st Contact Info) Description 03/21/2023 8:15 AM EDT Hem/Onc Treatment Hematology/Oncology Treatment, [place] [address] [place] [address] Chandrika, Chair 5 Hem Onc Scenery [address] [place] [address] 06/11/2023 8:20 AM EST Office Visit [facility] [address] [place] [phone] Chema Combs MD [address] [place] [address] 09/19/2023 1:30 PM EDT Office Visit Cardiology, [facility] [address] [place] [address] Prashant Ruiz, [address] [place] [address] Scheduled Procedures Name Priority Associated Diagnoses Date/Ti [...] ASSESSMENT COMPLETED IN PAST YEAR FOR COPD 03/12/2024 03/12/2023 GFR 03/20/2024 03/20/2023, 02/24, 02/28/2023, Additional history exists Colonoscopy 07/06/2026 07/06/2016, 07/06/2016 [...] 08/29/2016 LUNG CANCER SCREENING - USE SMARTSET 30055 Completed 10/01/2017 Zoster Vaccines Completed 12/14/2019, 09/24, 02/16/2013 Influenza Vaccine (FLU shot) Completed , 04/06/2022, 02/24/2021, Additional history exists GARDASIL-HPV IMMUNIZATION SERIES Aged Out No longer eligible based on patient's age to complete this topic Hepatitis B Aged Out No longer eligi ble based on patient's age to complete this topic documented as of this encounter Medical Devices Implanted Type Area Process Controls Technician Device Identifier Shelf Expiration Date Model / Serial / Lot Port Implant W/8f Poly Cath - [id number] Implanted:Qty : 1 on 02/12/2023 at [facility] Right: Chest CR BARD : PERIPHERAL VASCULAR [id number] 04/25/2024 [id number] / / [id number] documented as of this encounter Visit Diagnoses [...] Advance Directives occurred with: Patient Care Teams Supervisor Knitting Relationship Specialty Start Date End Date Chema Combs MD [address] [facility] [place], [facility] [place] [address] PCP - General Family Medicine 07/02/18 documented as of this encounter
--- OUTSIDE RECORDS SUMMARY | 2023-05-22 14:52 | External Medical Summary ---
Author Name Unknown Address Unknown Organization [id number]:LABORATORY [facility] - [address] [place] [id number] Laboratory Report Ordering Provider Test Date Status MARLON ORTEGA 03/28/2023 08:27:44 Final Observation Date Value Abnormality Reference (Units ) Status BUN 03/28/2023 08:27:44 26 Above high normal 6-20 (mg/dL) Final Creatinine 03/28/2023 08:27:44 1.2 0.6-1.2 (mg/dL) Final Glomerular filtration rate/1.73 sq M.predicted [Volume Rate/Area] in Serum, Plasma or Blood by Creatinine-based formula (CKD-EPI) 03/28/2023 08:27:44 64 >=60 (mL/min) Final eGFR is calculated based on the CKD-EPI 2020 equation SODIUM 03/28/2023 08:27:44 138 135-146 (m mol/L) Final Potassium 03/28/2023 08:27:44 4.3 3.5-5.1 (m mol/L) Final Cl 03/28/2023 08:27:44 101 98-107 (mm ol/L) Final CO2 03/28/2023 08:27:44 29 22-32 (mmo l/L) Final Anion gap 03/28/2023 08:27:44 8 7-15 (mmol /L) Final Glucose 03/28/2023 08:27:44 105 70-120 (mg /dL) Final Albumin 03/28/2023 08:27:44 4.2 3.8-5.0 (g /dL) Final AST (Aspartate aminotransferase) 03/28/2023 08:27:44 31 10-50 (U/L) Fin al Alk Phos 03/28/2023 08:27:44 150 Above high normal 35 -130 (U/L) Final Bilirubin, Total 03/28/2023 08:27:44 0.4 <=1 .2 (mg/dL) Final Calcium 03/28/2023 08:27:44 9.6 8.4-10.2 ( mg/dL) Final Protein 03/28/2023 08:27:44 6.3 6.0-8.3 (g /dL) Final ALT (Alanine aminotransferase) 03/28/2023 08:27:44 30 10-50 (U/L) Donell matthew Performing Location LABORATORY [facility] - [address] [facility] [address]
--- OUTSIDE RECORDS SUMMARY | 2023-05-22 14:52 | External Medical Summary ---
Author Name Unknown Address Unknown Organization K09:[facility] [place] [address] Laboratory Report Ordering Provider Test Date Status MARLON ORTEGA 04/10/2023 10:24:21 Final Observation Date Value Abnormality Reference (Units ) Status Magnesium 04/10/2023 10:24:21 1.7 1.5-2.6 (m g/dL) Final Performing Location [facility] [place] [address]
--- OUTSIDE RECORDS SUMMARY | 2023-05-22 14:52 | External Medical Summary ---
Author Name Unknown Address Unknown Organization K09:[facility] [place] [id number] Laboratory Report Ordering Provider Test Date Status MARLON ORTEGA 04/10/2023 10:24:21 Final Observation Date Value Abnormality Reference (Units ) Status WBC, Total 04/10/2023 10:24:21 20.00 Above high normal 4 .00-10.80 (K/uL) Final RBC 04/10/2023 10:24:21 2.93 4.50-5.25 (M/uL) Final Hemoglobin 04/10/2023 10:24:21 9.6 Below low normal 14 .0-16.8 (g/dL) Final HCT 04/10/2023 10:24:21 28.8 Below low normal 40. 0-48.4 (%) Final MCV 04/10/2023 10:24:21 98.3 82.0-99.5 (fL) Final MCH 04/10/2023 10:24:21 32.8 27.0-34.0 (pg) Final MCHC 04/10/2023 10:24:21 33.3 32.0-36.0 (g/dL) Final RDW 04/10/2023 10:24:21 19.3 11.5-15.5 (%) Final Platelets 04/10/2023 10:24:21 280 140-400 (K /uL) Final MPV 04/10/2023 10:24:21 9.4 6.6-11.1 ( fL) Final Performing Location [facility] [place] [id number]
--- OUTSIDE RECORDS SUMMARY | 2023-05-22 14:52 | External Medical Summary | Summary of Care ---
Author Name Unknown Organization [facility] Address [address] [place] [place] [address] Phone [phone] Care Team Providers Care Mill Tender Washing Name Role Phone Chema Combs MD Primary Care Provider [phone] Reason for Visit * Reason Comments Chemotherapy C2D8 Gemzar/Cisplati n * Episode Based Medications (Routine) - Authorized Specialty Diagnoses / Procedures Referred By Contac t Referred To Contact Diagnoses Encounter for antineoplastic chemotherapy Gall bladder disease Carcinoma of gallbladder (HCC) Procedures IA CISPLATIN 10 MG INJECTION IA FOSAPREPITANT INJECTION IA IN GEMCITABINE HCL NOS 200MG IA INJ., DURVALUMAB, 10 MG Scout Huddleston MD [address] [place] [address] Anc Hem/Onc Scenery [place] [address] [place] [address] Referral ID Status Reason Start Date Expiration Date V isits Requested Visits Authorized [id number] Authorized 01/17/2023 01/18/2024 999 99 Encounter Details Date Type Department Care Team (Latest Contact Info) Description 03/29/2023 9:00 AM EDT Hem/Onc Treatment Hematology/Oncolog y Treatment, [place] [address] [place] [address] Chandrika, Chair 3 Hem Onc Scenery [address] [facility] [place] [address] Encounter for antineoplastic chemotherapy*; Gall bladder disease; Carcinoma of gallbladder (HCC) Allergies Active Allergy Reactions Criticality Noted Date Comments Lisinopril Cough Low 08/18/2009 documented as of this encounter (statuses as of 03/29/2023) Medications Medication Sig Dispensed Refills Start Date [...] as of this encounter (statuses as of 03/29/2023) Active Problems Problem Noted Date Diagnosed Date [...] as of this encounter (statuses as of 03/29/2023) Resolved Problems Problem Noted Date Diagnosed Date [...] actual BMI) 05/06/2013 11/20/2016 Overview: bmi= 33.14 12/11/13 Special screening for malign ant neoplasm of [...] as of this encounter (statuses as of 03/29/2023) Immunizations Name Administration Dates Next Due COVID-19 [...] Sign Reading Time Taken Comments Blood Pressure 141/81 03/29/2023 9:10 AM EDT Pulse 71 03/29/2023 9:10 AM EDT Temperature 36.6 C (97.8 F) 03/29/2023 9:10 AM ED T Respiratory Rate 18 03/29/2023 9:10 AM EDT Oxygen Saturation 97% 03/29/2023 9:10 AM EDT Inhaled Oxygen Concentration - - Weight 103.4 kg (228 lb) 03/29/2023 9:10 AM EDT Height - - Body Mass Index 30.92 03/20/2023 9:41 AM EDT documented in this [...] Nursing Notes * Jackelyn Daniels RN - 03/29/2023 3:43 PM EDT Functional status at today's visit: Fully active, [...] Pt remained free of injury during treatment today. Patient tolerated treatment well and was discharged in stable condition. Coverage by A Yo RN. * Jackelyn Daniels RN - 03/29/2023 11:11 AM EDT Chair 1, present Chemo agents Gemzar/Cisplatin Appetite good Nausea/Vomiting no Diarrhea no Constipation no Mucositis no Fatigue mild, rests as needed Bleeding no Infection no Rash no Numbness tingling no Pain no Radiation no ABN Labs WNL for treatment, reviewed with Dr Piyush Lopez in [place]: no Return in 2 weeks [...] Description 04/10/2023 10:30 AM EST Laboratory Laboratory [facility] [place] [address] [place] [phone] [place] [facility] [address] [place] [address] 04/10/2023 11:00 AM EST Office Visit Hematology/Oncology [place] [address] [place] [address] Scuot Huddleston MD [address] [facility] [place] [address] 04/11/2023 8:30 AM EST Hem/Onc Treatment Hematology/Oncology Treatment, [place] [address] [place], [place] [address] [place], Chair 4 Hem Onc Scenery [address] [place] [address] 06/11/2023 8:20 AM EST Office Visit Family [facility] [address] [place] [address] Chema Combs MD [address] [place] [address] 09/19/2023 1:30 PM EDT Office Visit Cardiology, [facility] [address] [place] [address] Prashant Ruiz, [address] [place] [address] Scheduled Procedures Name Priority Associated Diagnoses Date/Ti [...] COMPLETED IN PAST YEAR FOR COPD 03/21/2024 03/29/2023 GFR 03/28/2024 03/28/2023, 02/25, 03/06/2023, Additional history exists Colonoscopy 07/06/2026 07/06/2016, 07/06/2016 [...] 08/29/2016 LUNG CANCER SCREENING - USE SMARTSET 71636 Completed 10/01/2017 Zoster Vaccines Completed 12/14/2019, 09/24, 02/16/2013 Influenza Vaccine (FLU shot) Completed , 04/06/2022, 02/24/2021, Additional history exists GARDASIL-HPV IMMUNIZATION SERIES Aged Out No longer eligible based on patient's age to complete this topic Hepatitis B Aged Out No longer eligi ble based on patient's age to complete this topic documented as of this encounter Medical Devices Implanted Type Area Supervisor Roller Shop Device Identifier Shelf Expiration Date Model / Serial / Lot Port Implant W/8f Poly Cath - [id number] Implanted:Qty : 1 on 02/12/2023 at [facility] Right: Chest CR BARD : PERIPHERAL VASCULAR [id number] 04/25/2024 [id number] / / [id number] documented as of this encounter Visit Diagnoses [...] ONCE PRN Other, Hypersensitivity Reaction, Starting on 03/29/23 at 0942, Until 03/30/23 at 0941, For 24 hours EPINEPHrine 1 MG/ML inj 0.3 mg 0.3 mg, Intramuscular, ONCE PRN Other, Hypersensitivity Reaction or Anaphylaxis, Starting on Sat03/29/23 at 0942, Until 03/30/23 at 0941, For 24 hours hEParin 100 UNIT/ML Lock Flush inj 500 Units 500 Units (5 mL), IV Lock, PRN Other, IV Flush, Starting on Sat03/29/23 at 0942, Until 03/30/23 at 0941, For 24 hours, Do not flush if lock, PICC, or central line not in place; IV infusing or unable to flush. Given 03/29/2023 2:44 PM EDT 500 Units Hydrocortisone Sod Suc (PF) (Solu-Cortef) inj 100 mg 100 mg, IV Push, ONCE PRN Other, Hypersensitivity Reaction, Starting on Sat03/29/23 at 0942, Until 03/30/23 at 0941, For 24 hours NSS 1,000 mL with magnesium sulfate 1 g infusion Intravenous, at 500 mL/hr Administer over 2 Hours, Post-cisplatin hydration, CONTINUOUS, Starting on Sat03/29/23 at 1215, Until Discontinued Start Infusion 03/29/2023 12:40 PM EDT 500 mL/hr NSS infusion 500 mL, Intravenous, at 50 mL/hr, CONTINUOUS, Starting on Sat03/29/23 at 1045, Until Sat03/29/23 at 2044 Start Infusion 03/29/2023 9:35 AM EDT 500 mL 50 mL/hr oxygen GAS Inhalation, OXYGEN, First dose on Sat03/29/23 at 1015, Until Discontinued, Device/Managed by: Low [...] Push, PRN Other, IV Flush, Starting on Sat03/29/23 at 0942, Until 03/30/23 at 0941, For 24 hours, Do not flush if lock, PICC, or central line not in place; IV infusing or unable to flush. Given 03/29/2023 2:44 PM EDT 10 mL Inactive Administered Medications - up to 3 most recent administrations Medication Order MAR Action Action Date Dose Rate Site CISplatin (Platinol) 58 mg in NSS 500 mL infusion 58 mg (25 mg/m2 2.32 m2 Treatment Plan BSA from Recorded weight), IV Piggyback, Administer over 60 Minutes, PROTECT FROM LIGHT, ONCE, 1 dose, On Sat03/29/23 at 1115 Start Infusion 03/29/2023 11:35 AM EDT 58 mg 500 mL/hr fosaprepitant Dimeglumine (Emend) 150 mg, ondansetron (Zofran) 16 mg, dexamethasone sodium phosphate 12 mg in NSS 250 mL Infusion 150 mg, IV Piggyback, ONCE, 1 dose, On Sat03/29/23 at 1045, Administer over 30 Minutes, Give 30 minutes prior to chemotherapy. Infuse over 30 minutes. Start Infusion 03/29/2023 9:58 AM EDT 150 mg 500 mL/hr gemcitabine (Gemzar) 2,400 mg in NSS 250 mL infusion 2,400 mg (rounded from 2,320 mg = 1,000 mg/m2 2.32 m2 Treatment Plan BSA from Recorded weight), IV Piggyback, ONCE, 1 dose, On Sat03/29/23 at 1115, Administer over 30 Minutes Start Infusion 03/29/2023 11:04 AM EDT 2,400 mg 500 mL/hr NSS infusion FOR HYDRATION Intravenous, at 500 mL/hr Administer over 2 Hours, ONCE, 1 dose, On Sat03/29/23 at 1015 Start Infusion 03/29/2023 9:35 AM EDT 1,000 mL 500 mL/hr potassium chloride ER tab 20 mEq 20 mEq, Oral, ONCE, On Sat03/29/23 at 1215, For 1 dose, This med should NOT be Crushed or Chewed Give with post-hydration. Hold if serum potassium is greater than or equal to 5 mmol/L. Given 03/29/2023 12:38 PM EDT 20 mEq documented in this encounter Advance Directives Latest Code Status on File Code Status Date Activated Date Inactivated Comments Full Code 12/27/2022 3:40 PM 01/01/2023 8:39 PM This or aj reflects the patients wishes and were consensually agreed upon. Question Answer Comments Discussion of Advance Directives occurred with: Patient Care Teams Mill Tender Washing Relationship Specialty Start Date End Date Chema Combs MD [address] [facility] [place], [facility] [place] [id number] PCP - General Family Medicine 07/02/18 documented as of this encounter
--- OUTSIDE RECORDS SUMMARY | 2023-05-22 14:52 | External Medical Summary | Summary of Care ---
Author Name Unknown Organization [facility] Address [address] [facility] [place] [address] Phone [phone] Care Team Providers Care Wood Boat Builder Supervisor Name Role Phone Chema Combs MD Primary Care Provider Reason for Visit * Reason Comments eRx-Medication Refill Encounter Details Date Type Department Care Team (Late st Contact Info) Description 04/05/2023 Refill [facility] [address] [place] [address] Chema Combs MD [address] [place] [address] Essential tremor Allergies Active Allergy Reactions Criticality Noted Date Comments Lisinopril Cough Low 08/18/2009 documented as of this encounter (statuses as of 04/06/2023) Medications Medication Sig Dispensed Refills Start Date [...] as of this encounter (statuses as of 04/06/2023) Active Problems Problem Noted Date Diagnosed Date [...] as of this encounter (statuses as of 04/06/2023) Resolved Problems Problem Noted Date Diagnosed Date [...] as of this encounter (statuses as of 04/06/2023) Immunizations Name Administration Dates Next Due COVID-19 [...] encounter Miscellaneous Notes * Telephone Encounter - Iker Duke RPh - 04/06/2023 8:30 AM ESTRefused Prescriptions: Disp Refills Gabapentin 300 MG Oral Capsule (Neurontin) 540 Ca*3 Sig: TAKE 3CAPS TWICE DAILYRefused By: Billy DUKE for Refusal: Course of treatment complete documented in this encounter Plan of Treatment Upcoming Encounters Date Type Department Care Team (Late st Contact Info) Description 04/10/2023 10:30 AM EST Laboratory Laboratory [facility] [address] [facility] [place] [address] Chandrika Lab [place] [address] [address] [place] [address] 04/10/2023 11:00 AM EST Office Visit Hematology/Oncology [facility] Chandrika [place] [address] [place] [address] Scout Huddleston MD [address] [facility] [place] [address] 04/11/2023 8:30 AM EST Hem/Onc Treatment Hematology/Oncology Treatment, [place] [address] [place] [address] Chandrika, Chair 4 Hem Onc Scenery [address] [place] [address] 06/11/2023 8:20 AM EST Office Visit [facility] [address] [place] [address] Chema Combs MD [address] [place] [address] 09/19/2023 1:30 PM EDT Office Visit Cardiology, [facility] [address] [facility] [place] [address] Prashant Ruiz DO [address] [place] [address] Scheduled Procedures Name Priority Associated Diagnoses Date/Ti [...] 08/29/2016 LUNG CANCER SCREENING - USE SMARTSET 70103 Completed 10/01/2017 Zoster Vaccines Completed 12/14/2019, 09/24, 02/16/2013 Influenza Vaccine (FLU shot) Completed , 04/06/2022, 02/24/2021, Additional history exists GARDASIL-HPV IMMUNIZATION SERIES Aged Out No longer eligible based on patient's age to complete this topic Hepatitis B Aged Out No longer eligi ble based on patient's age to complete this topic documented as of this encounter Medical Devices Implanted Type Area Dampener Operator Device Identifier Shelf Expiration Date Model / Serial / Lot Port Implant W/8f Poly Cath - [id number] Implanted:Qty : 1 on 02/12/2023 at [facility] Right: Chest CR BARD : PERIPHERAL VASCULAR [id number] 04/25/2024 [id number] / / [id number] documented as of this encounter Visit Diagnoses Diagnosis Essential tremor Essential and other specified forms of tremor documented in this encounter Advance Directives Latest Code Status on File Code Status Date Activated Date Inactivated Comments Full Code 12/27/2022 3:40 PM 01/01/2023 8:39 PM This or aj reflects the patients wishes and were consensually agreed upon. Question Answer Comments Discussion of Advance Directives occurred with: Patient Care Teams Wood Boat Builder Supervisor Relationship Specialty Start Date End Date Chema Combs MD [address] [facility] [place] [address] PCP - General Family Medicine 07/02/18 documented as of this encounter
--- OUTSIDE RECORDS SUMMARY | 2023-05-22 14:52 | External Medical Summary ---
Author Name Unknown Address Unknown Organization [id number]:[place] [facility] [place] [address] [facility] [address] Laboratory Report Ordering Provider Test Date Status MARLON ORTEGA 03/28/2023 08:27:44 Final Observation Date Value Abnormality Reference (Units ) Status SYNC LEUKOCYTES IN BLOOD BY AUTOMATED COUNT 03/28/2023 08:27:44 19.68 Above high normal 4.00-10.80 (K/uL) Final Neutrophils/100 leukocytes in Blood by Manual count 03/28/2023 08:27:44 6.0 Below low normal 40.0-75.0 (%) Final Lymphocytes/100 leukocytes in Blood by Manual count 03/28/2023 08:27:44 91.0 Above high normal 18.0-42.0 (%) Final Monocytes/100 leukocytes in Blood by Manual count 03/28/2023 08:27:44 3.0 1.0-11.0 (%) Final Neutrophils [#/volume] in Blood by Manual count 03/28/2023 08:27:44 1.18 Below low normal 1.80-7.70 (K/uL) Final Lymphocytes [#/volume] in Blood by Manual count 03/28/2023 08:27:44 17.91 Above high normal 1.00-4.80 (K/uL) Final Monocytes [#/volume] in Blood by Manual count 03/28/2023 08:27:44 0.59 0.00-1.10 (K/uL) Final Variant lymphocytes [Presence] in Blood by Light microscopy 03/28/2023 08:27:44 Present Abnormal None Seen Final Smudge cells [Presence] in Blood by Light microscopy 03/28/2023 08:27:44 Present Abnormal None Seen Final Performing Location LABORATORY [facility] - [address] [place] [address]
--- OUTSIDE RECORDS SUMMARY | 2023-05-22 14:52 | External Medical Summary ---
Author Name Unknown Address Unknown Organization K09:LABORATORY [place] [address] Laboratory Report Ordering Provider Test Date Status MARLON ORTEGA 04/10/2023 10:24:21 Final Observation Date Value Abnormality Reference (Units ) Status Nucleated erythrocytes/100 leukocytes [Ratio] in Blood by Automated count 04/10/2023 10:24:21 Final Variant lymphocytes [Presence] in Blood by Light microscopy 04/10/2023 10:24:21 Present Abnormal None Seen Final Smudge cells [Presence] in Blood by Light microscopy 04/10/2023 10:24:21 Present Abnormal None Seen Final Performing Location LABORATORY [place] [address]
--- OUTSIDE RECORDS SUMMARY | 2023-05-22 14:52 | External Medical Summary | Summary of Care ---
Author Name Unknown Organization [facility] Address [address] [facility] [place] [address] Phone [phone] Care Team Providers Care Pen Or Pencil Assembly Machine Operator Name Role Phone Chema Combs MD Primary Care Provider [phone] Reason for Visit * Reason Comments Chemotherapy C2D1 Imfinzi/Gemzar/ Cisplatin * Episode Based Medications (Routine) - Authorized Specialty Diagnoses / Procedures Referred By Contac t Referred To Contact Diagnoses Encounter for antineoplastic chemotherapy Gall bladder disease Carcinoma of gallbladder (HCC) Procedures SC CISPLATIN 10 MG INJECTION SC FOSAPREPITANT INJECTION SC IN GEMCITABINE HCL NOS 200MG SC INJ., DURVALUMAB, 10 MG Scout Huddleston MD [address] [place] [address] Anc Hem/Onc Scenery [place] [address] [place] [address] Referral ID Status Reason Start Date Expiration Date V isits Requested Visits Authorized [id number] Authorized 01/17/2023 01/18/[phone] Encounter Details Date Type Department Care Team (Latest Contact Info) Description 03/21/2023 8:15 AM EDT Hem/Onc Treatment Hematology/Oncolog y Treatment, [place] [address] [place] [address] Chandrika, Chair 5 Hem Onc Scenery [address] [facility] [place] [address] Encounter for antineoplastic chemotherapy*; Gall bladder disease; Carcinoma of gallbladder (HCC) Allergies Active Allergy Reactions Criticality Noted Date Comments Lisinopril Cough Low 08/18/2009 documented as of this encounter (statuses as of 03/21/2023) Medications Medication Sig Dispensed Refills Start Date [...] as of this encounter (statuses as of 03/21/2023) Active Problems Problem Noted Date Diagnosed Date [...] as of this encounter (statuses as of 03/21/2023) Resolved Problems Problem Noted Date Diagnosed Date [...] as of this encounter (statuses as of 03/21/2023) Immunizations Name Administration Dates Next Due COVID-19 [...] Sign Reading Time Taken Comments Blood Pressure 131/55 03/21/2023 8:10 AM EDT Pulse 80 03/21/2023 8:10 AM EDT Temperature 36.7 C (98.1 F) 03/21/2023 8:10 AM ED T Respiratory Rate 16 03/21/2023 8:10 AM EDT Oxygen Saturation 94% 03/21/2023 8:10 AM EDT Inhaled Oxygen Concentration - - Weight 104.1 kg (229 lb 8 oz) 03/21/2023 8:10 AM EDT Height - - Body Mass Index 31.13 03/20/2023 9:41 AM EDT documented in this [...] Nursing Notes * Jackelyn Daniels RN - 03/21/2023 3:26 PM EDT Functional status at today's visit: [...] in stable condition. Coverage by Usama Lynne LPN and Dana Ram RN. * Jackelyn Daniels RN - 03/21/2023 8:41 AM EDT Chair 12 Pt was seen by Dr Huddleston yesterday, see office notes. Will proceed with treatment today as planned. Pt denies any complaints this morning. VAD accessed without difficulty, good blood return noted, flushed with NSS and fluids infusing. Safety and Risk for Injury Patient will remain free from injury. Ensure appropriate safety devices are available. Provide and maintain safe environment. documented in this encounter Plan of Treatment Upcoming Encounters Date Type Department Care Team (Late st Contact Info) Description 03/28/2023 8:30 AM EDT Laboratory Laboratory [facility] Service [address] [address] [facility] [address] [place] [address] 03/29/2023 9:00 AM EDT Hem/Onc Treatment Hematology/Oncology Treatment, [place] [address] [place] [address] Chandrika, Chair 3 Hem Onc Scenery [facility] [address] 04/10/2023 10:30 AM EST Laboratory Laboratory [facility] [address] [place] [phone] Chandrika, Lab Scenery [address] [place] [address] 04/10/2023 11:00 AM EST Office Visit Hematology/Oncology [facility] [place] [address] [place] [address] Scout Huddleston MD [address] [place] [address] 04/11/2023 8:30 AM EST [facility] [address] [place] [address] Chandrika, Chair 4 Hem Onc Scenery [address] [place] [address] 06/11/2023 8:20 AM EST Office Visit [facility] [address] [place] [address] Chema Combs MD [address] [place] [address] 09/19/2023 1:30 PM EDT Office Visit Cardiology, [facility] [address] [facility] [place] [address] Prashant Ruiz, [address] [facility] [place] [address] Scheduled Orders Name Type Priority Associated Diagnoses Orde r Schedule GLUCOSE Lab STAT Encounter for antineoplastic chemotherapy Gall bladder disease Carcinoma of gallbladder (HCC) Expected: 03/21/2023 (Approximate), Expires: 09/17/2023 Scheduled Procedures Name Priority Associated Diagnoses Date/Ti [...] ASSESSMENT COMPLETED IN PAST YEAR FOR COPD 03/20/2024 03/20/2023 Colonoscopy 07/06/2026 07/06/2016, 07/06/2016 Colorectal Cancer Screening [...] 08/29/2016 LUNG CANCER SCREENING - USE SMARTSET 37414 Completed 10/01/2017 Zoster Vaccines Completed 12/14/2019, 09/24, 02/16/2013 Influenza Vaccine (FLU shot) Completed , 04/06/2022, 02/24/2021, Additional history exists GARDASIL-HPV IMMUNIZATION SERIES Aged Out No longer eligible based on patient's age to complete this topic Hepatitis B Aged Out No longer eligi ble based on patient's age to complete this topic documented as of this encounter Medical Devices Implanted Type Area Client Customer Manager Device Identifier Shelf Expiration Date Model / Serial / Lot Port Implant W/8f Poly Cath - [id number] Implanted:Qty : 1 on 02/12/2023 at [facility] Right: Chest CR BARD : PERIPHERAL VASCULAR [id number] 04/25/2024 [id number] / / [id number] documented as of this encounter Visit Diagnoses [...] PRN Other, Hypersensitivity Reaction, Starting on Tran 03/21/23 at 0818, Until Sat03/22/23 at 0817, For 24 hours EPINEPHrine 1 MG/ML inj 0.3 mg 0.3 mg, Intramuscular, ONCE PRN Other, Hypersensitivity Reaction or Anaphylaxis, Starting on Tran 03/21/23 at 0818, Until Sat03/22/23 at 0817, For 24 hours hEParin 100 UNIT/ML Lock Flush inj 500 Units 500 Units (5 mL), IV Lock, PRN Other, IV Flush, Starting on Tran 03/21/23 at 0818, Until Sat03/22/23 at 0817, For 24 hours, Do not flush if lock, PICC, or central line not in place; IV infusing or unable to flush. Given 03/21/2023 2:39 PM EDT 500 Units Hydrocortisone Sod Suc (PF) (Solu-Cortef) inj 100 mg 100 mg, IV Push, ONCE PRN Other, Hypersensitivity Reaction, Starting on Tran 03/21/23 at 0818, Until Sat03/22/23 at 0817, For 24 hours NSS 1,000 mL with magnesium sulfate 1 g infusion Intravenous, at 500 mL/hr Administer over 2 Hours, Post-cisplatin hydration, CONTINUOUS, Starting on Tran 03/21/23 at 1100, Until Discontinued Start Infusion 03/21/2023 12:39 PM EDT 500 mL/hr NSS infusion 500 mL, Intravenous, at 50 mL/hr, CONTINUOUS, Starting on Tran 03/21/23 at 0930, Until Tran 03/21/23 at 1929 Start Infusion 03/21/2023 8:20 AM EDT 500 mL 50 mL/hr sodium chloride 0.9 % flush central line 10 mL 10 mL, IV Push, PRN Other, IV Flush, Starting on Sat03/21/23 at 0818, Until Sat03/22/23 at 0817, For 24 hours, Do not flush if lock, PICC, or central line not in place; IV infusing or unable to flush. Given 03/21/2023 2:39 PM EDT 10 mL Inactive Administered Medications - up to 3 most recent administrations Medication Order MAR Action Action Date Dose Rate Site CISplatin (Platinol) 58 mg in NSS 500 mL infusion 58 mg (25 mg/m2 2.32 m2 Treatment Plan BSA from Recorded weight), IV Piggyback, Administer over 60 Minutes, PROTECT FROM LIGHT, ONCE, 1 dose, On Sat03/21/23 at 1000 Start Infusion 03/21/2023 11:31 AM EDT 58 mg 500 mL/hr Durvalumab (Imfinzi) 1,500 mg in NSS 250 mL infusion 1,500 mg, IV Piggyback, ONCE, 1 dose, On Sat03/21/23 at 0900, Administer over 60 Minutes, Administer through 0.22 micron low protein binding filter! Final Concentration between 1-15 mg/mL Start Infusion 03/21/2023 9:34 AM EDT 1,500 mg 250 mL/hr fosaprepitant Dimeglumine (Emend) 150 mg, ondansetron (Zofran) 16 mg, dexamethasone sodium phosphate 12 mg in NSS 250 mL Infusion 150 mg, IV Piggyback, ONCE, 1 dose, On Sat03/21/23 at 0930, Administer over 30 Minutes, Give 30 minutes prior to chemotherapy. Infuse over 30 minutes. Start Infusion 03/21/2023 8:57 AM EDT 150 mg 500 mL/hr gemcitabine (Gemzar) 2,400 mg in NSS 250 mL infusion 2,400 mg (rounded from 2,320 mg = 1,000 mg/m2 2.32 m2 Treatment Plan BSA from Recorded weight), IV Piggyback, ONCE, 1 dose, On Sat03/21/23 at 1000, Administer over 30 Minutes Start Infusion 03/21/2023 10:50 AM EDT 2,400 mg 500 mL/hr NSS infusion FOR HYDRATION Intravenous, at 500 mL/hr Administer over 2 Hours, ONCE, 1 dose, On 03/21/23 at 0900 Start Infusion 03/21/2023 8:30 AM EDT 1,000 mL 500 mL/hr potassium chloride ER tab 20 mEq 20 mEq, Oral, ONCE, On Tran 03/21/23 at 1100, For 1 dose, This med should NOT be Crushed or Chewed Give with post-hydration. Hold if serum potassium is greater than or equal to 5 mmol/L. Given 03/21/2023 12:38 PM EDT 20 mEq documented in this encounter Advance Directives Latest Code Status on File Code Status Date Activated Date Inactivated Comments Full Code 12/27/2022 3:40 PM 01/01/2023 8:39 PM This or aj reflects the patients wishes and were consensually agreed upon. Question Answer Comments Discussion of Advance Directives occurred with: Patient Care Teams Pen Or Pencil Assembly Machine Operator Relationship Specialty Start Date End Date Chema Combs MD [address] [place] [address] PCP - General Family Medicine 07/02/18 documented as of this encounter
--- OUTSIDE RECORDS SUMMARY | 2023-05-22 14:52 | External Medical Summary ---
Author Name Unknown Address Unknown Organization K01:[place] [place] [address] [place] [address] Laboratory Report Ordering Provider Test Date Status DELIO GOLD 03/28/2023 08:27:44 Final Observation Date Value Abnormality Reference (Units ) Status MYCODE SPECIMEN-SST 03/28/2023 08:27:44 Freezing of extracted DNA, whole blood and/or serum. Final Performing Location [facility] [place] [address] [place] [address]
--- OUTSIDE RECORDS SUMMARY | 2023-05-22 14:52 | External Medical Summary ---
Author Name Unknown Address Unknown Organization K01:[facility] [place] [address] [place] [address] Laboratory Report Ordering Provider Test Date Status MARLON ORTEGA 03/28/2023 08:27:44 Final Observation Date Value Abnormality Reference (Units ) Status Magnesium 03/28/2023 08:27:44 1.4 Below low normal 1.5 -2.6 (mg/dL) Final Performing Location LABORATORY C - [address] [place] [address]
--- OUTSIDE RECORDS SUMMARY | 2023-05-22 14:52 | External Medical Summary ---
Author Name Unknown Address Unknown Organization K01:[place] [facility] [place] [address] [place] [address] Laboratory Report Ordering Provider Test Date Status MARLON ORTEGA 04/10/2023 10:24:21 Final Observation Date Value Abnormality Reference (Units ) Status TSH 04/10/2023 10:24:21 2.73 0.27-4.20 (uIU/mL) Final Performing Location [place] [facility] [place] [address] [place] [address]
--- OUTSIDE RECORDS SUMMARY | 2023-05-22 14:52 | External Medical Summary | Summary of Care ---
Author Name Unknown Organization [facility] Address [address] [place] [address] Phone [phone] Care Team Providers Care Charter Coordinator Name Role Phone Chema Combs MD Primary Care Provider [phone] Encounter Details Date Type Department Care Team (Late st Contact Info) Description 04/08/2023 Orders Only Hematology/Oncology, [facility] [address] [place] [address] Scout Huddleston MD [address] [place] [address] Allergies Active Allergy Reactions Criticality Noted Date Comments Lisinopril Cough Low 08/18/2009 documented as of this encounter (statuses as of 04/08/2023) Medications Medication Sig Dispensed Refills Start Date [...] as of this encounter (statuses as of 04/08/2023) Active Problems Problem Noted Date Diagnosed Date [...] as of this encounter (statuses as of 04/08/2023) Resolved Problems Problem Noted Date Diagnosed Date [...] as of this encounter (statuses as of 04/08/2023) Immunizations Name Administration Dates Next Due COVID-19 [...] Description 04/10/2023 10:30 AM EST Laboratory Laboratory [facility] [address] [place] [phone] Chandrika Lab [facility] [address] [facility] [place] [address] 04/10/2023 11:00 AM EST Office Visit Hematology/Oncology [facility] [address] [place] [address] Scout Huddleston MD [address] [place] [address] 04/11/2023 8:30 AM EST Hem/Onc Treatment Hematology/Oncology Treatment, [place] [address] [place] [address] Chandrika, Chair 4 Hem Onc [facility] [address] [facility] [place] [address] 06/11/2023 8:20 AM EST Office Visit [facility] [address] [facility] [phone] Chema Combs MD [address] [place] [address] 09/19/2023 1:30 PM EDT Office Visit Cardiology, [facility] [address] [place] [address] Prashant Ruiz, [address] [place] [address] Scheduled Procedures Name Priority Associated Diagnoses Date/Ti [...] 08/29/2016 LUNG CANCER SCREENING - USE SMARTSET [address] Completed 10/01/2017 Zoster Vaccines Completed 12/14/2019, 09/24, 02/16/2013 Influenza Vaccine (FLU shot) Completed , 04/06/2022, 02/24/2021, Additional history exists GARDASIL-HPV IMMUNIZATION SERIES Aged Out No longer eligible based on patient's age to complete this topic Hepatitis B Aged Out No longer eligi ble based on patient's age to complete this topic documented as of this encounter Medical Devices Implanted Type Area Business Account Executive Device Identifier Shelf Expiration Date Model / Serial / Lot Port Implant W/8f Poly Cath - [id number] Implanted:Qty : 1 on 02/12/2023 at [facility] Right: Chest CR BARD : PERIPHERAL VASCULAR [id number] 04/25/2024 [id number] / / [id number] documented as of this encounter Advance Directives Latest Code Status on File Code Status Date Activated Date Inactivated Comments Full Code 12/27/2022 3:40 PM 01/01/2023 8:39 PM This or aj reflects the patients wishes and were consensually agreed upon. Question Answer Comments Discussion of Advance Directives occurred with: Patient Care Teams Charter Coordinator Relationship Specialty Start Date End Date Chema Combs MD [address] [place] [address] PCP - General Family Medicine 07/02/18 documented as of this encounter
--- OUTSIDE RECORDS SUMMARY | 2023-05-22 14:53 | External Medical Summary | Summary of Care ---
Author Name Unknown Organization [facility] Address [address] [facility] [place] [address] Phone [phone] Care Team Providers Care Electronic Field Service Engineer Name Role Phone Chema Combs MD Primary Care Provider [phone] Reason for Visit * Reason Comments Outpatient Testing Encounter Details Date Type Department Care Team (Late st Contact Info) Description 03/20/2023 9:30 AM EDT Laboratory Laboratory [facility] [address] [place] [address] [facility] [address] [place] [address] Gall bladder disease; Chronic lymphocytic leukemia of [...] 03/20/2023 10:00 AM EDT Office Visit Hematology/Oncology [facility] [address] [facility] [place] [address] Scout Huddleston MD [address] [facility] [place] [address] Arrived 03/21/2023 8:15 AM EDT Hem/Onc Treatment Hematology/Oncology Treatment, [place] [address] [facility] [address] [place] [address] Chandrika, Chair [address] [facility] [address] [facility] [place] [address] 06/11/2023 8:20 AM EST Office Visit [facility] [address] [place] [phone] Chema Combs MD [address] [place] [address] 09/19/2023 1:30 PM EDT Office Visit Cardiology, [facility] [address] [place] [address] Prashant Ruiz DO [address] [place] [address] Pending Results Name Type Priority Associated Diagnoses Date /Time CBC WITH WBC DIFFERENTIAL Lab STAT Gall bladder disease 03/20/2023 9:07 AM EDT COMPREHENSIVE METABOLIC PANEL Lab STAT Gall bladder disease 03/20/2023 9:07 AM EDT MAGNESIUM Lab STAT 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) 03/20/2023 9:07 AM EDT CBC Lab STAT Gall bladder disease 03/20/2023 9:07 AM EDT DIFFERENTIAL, AUTOMATED Lab STAT Gall bladder disease 03/20/2023 9:07 AM EDT Scheduled Procedures Name Priority Associated [...] 12/11/2022, 06/28, 07/06/2021, Additional history exists GFR 03/06/2024 03/06/2023, 09/2022, 02/21/2023, Additional history exists O2 ASSESSMENT COMPLETED IN PAST YEAR FOR COPD 03/12/2024 03/12/2023 Colonoscopy 07/06/2026 07/06/2016, 07/06/2016 Colorectal Cancer Screening [...] 08/29/2016 LUNG CANCER SCREENING - USE SMARTSET 56004 Completed 10/01/2017 Zoster Vaccines Completed 12/14/2019, 09/24, 02/16/2013 Influenza Vaccine (FLU shot) Completed , 04/06/2022, 02/24/2021, Additional history exists GARDASIL-HPV IMMUNIZATION SERIES Aged Out No longer eligible based on patient's age to complete this topic Hepatitis B Aged Out No longer eligi ble based on patient's age to complete this topic documented as of this encounter Medical Devices Implanted Type Area Biometric Fingerprinting Technician Device Identifier Shelf Expiration Date Model / Serial / Lot Port Implant W/8f Poly Cath - [id number] Implanted:Qty : 1 on 02/12/2023 at [facility] Right: Chest CR BARD : PERIPHERAL VASCULAR [id number] 04/25/2024 [id number] / / [id number] documented as of this encounter Visit Diagnoses [...] Advance Directives occurred with: Patient Care Teams Electronic Field Service Engineer Relationship Specialty Start Date End Date Chema Combs MD [address] [place] [address] PCP - General Family Medicine 07/02/18 documented as of this encounter
--- OUTSIDE RECORDS SUMMARY | 2023-05-22 14:53 | External Medical Summary | Summary of Care ---
Author Name Unknown Organization [facility] Address [address] [facility] [place] [address] Phone [phone] Care Team Providers Care Manager Benefit Name Role Phone Chema Combs MD Primary Care Provider [phone] Reason for Visit * Reason Comments Chemotherapy Cisplatin/Gemzar D1C 8 * Episode Based Medications (Routine) - Authorized Specialty Diagnoses / Procedures Referred By Contac t Referred To Contact Diagnoses Encounter for antineoplastic chemotherapy Gall bladder disease Carcinoma of gallbladder (HCC) Procedures DE CISPLATIN 10 MG INJECTION DE FOSAPREPITANT INJECTION DE IN GEMCITABINE HCL NOS 200MG DE INJ., DURVALUMAB, 10 MG Scout Huddleston MD [address] [place] [address] Anc Hem/Onc Scenery Chand[place] [address] [place] [address] Referral ID Status Reason Start Date Expiration Date V isits Requested Visits Authorized [id number] Authorized 01/17/2023 01/18/[phone] Encounter Details Date Type Department Care Team Description 03/07/2023 Hem/Onc Treatment Hematology/Oncology Treatment, [place] [address] [place] [address] Chandrika, Chair 5 Hem Onc [place] [address] [place] [address] Encounter for antineoplastic chemotherapy*; Gall bladder disease; Carcinoma of gallbladder (HCC) Allergies Active Allergy Reactions Severity Noted Date Comments Lisinopril Cough Low 08/18/2009 documented as of this encounter (statuses as of 03/07/2023) Medications Medication Sig Dispensed Refills Start Date [...] as of this encounter (statuses as of 03/07/2023) Active Problems Problem Noted Date Gall bladder disease 01/16/2023 Encounter for antineoplastic chemotherap y 01/16/2023 Carcinoma of gallbladder 01/16/2023 Transaminitis 12/30/2022 Liver mass 12/29/2022 Prediabetes 01/02/2021 Overview: Per Prediabetes protocol Essential tremor 10/16/2019 PAF (paroxysmal atrial fibrillation) 10/2018 Encounter for long-term (current) use of medications 06/19/2017 Primary osteoarthritis of one hip 2016 MEDICATION USE AGREEMENT 11/19/2016 Overview: 11/19/16 Primary osteoarthritis of lumbar spine 0 08/22/2015 Primary osteoarthritis of cervical spine 06/16/2015 HTN, goal below 150/90 08/25/2014 POLST (Physician Orders for Life-Sustain ing Treatment) 11/12/2013 COPD, mild 01/02/2012 Dyslipidemia, goal LDL below 100 010 Chronic lymphocytic leukemia of B-cell t ype not having achieved remission 02/17/2008 documented as of this encounter (statuses as of 03/07/2023) Resolved Problems Problem Noted Date Resolved Date KARISSA (acute kidney injury) 12/29/20222022 Prediabetes 04/06/2019 09/08/2020 Overview: Per Prediabetes protocol Acute respiratory failure with hypoxia 9 06/02/2019 PVD (peripheral vascular disease) 09/29/2018 09/29/2018 Acute hip pain 11/19/2016 11/20/2016 Screen for colon cancer 06/22/2016 11/21/19 17 Cellulitis of thumb 04/13/2016 11/20/2016 Vision test 08/22/2015 12/21/2015 Obesity, Class I, BMI 30.0-34.9 (see actual BMI) 06/16/2015 11/20/2016 Overview: bmi= 34.24 06/16/15 Mood swings 04/19/2015 11/20/2016 Bronchitis, complicated 09/08/2014 06/16/19 16 Viral URI with cough 09/08/2014 06/16/2015 INFORMATION 04/26/2014 11/20/2016 Overview: 10 year cardiovascular risk 20% Knee pain, right 03/08/2014 06/16/2015 POLST (Physician Orders for Life-Sustaining Micheline tment) 11/12/2013 05/14/2014 Obesity, Class I, BMI 30.0-34.9 (see actual BMI) 11/06/2013 11/20/2016 Overview: bmi= 34.24 11/06/13 Low back pain 07/20/2013 06/16/2015 S/P cataract surgery 07/20/2013 11/20/2016 Obesity, Class I, BMI 30.0-34.9 (see actual BMI) 05/06/2013 11/20/2016 Overview: bmi= 33.14 05/06/13 Special screening for malignant neoplasm of pros whitten 11/03/2012 11/20/2016 Obesity, Class I, BMI 30.0-34.9 (see actual BMI) 05/05/2012 11/20/2016 Overview: bmi= 34.52 05/05/12 DJD (degenerative joint disease) 05/05/2012 06/16/2015 Routine medical exam 05/05/2012 06/16/2015 Prediabetes 04/26/2012 09/03/2018 Severe obesity with body mas s index (BMI) of 35.0 to 39.9 with serious comorbidity 01/02/2012 11/20/2016 Overview: bmi= 35.69 01/02/12 ICD-10 update of inactive diagnosis Prediabetes 01/02/2012 11/20/2016 History of tobacco use 01/02/2012 7 Overview: quit 03/10/09 Routine medical exam 01/02/2012 06/16/2015 Backache 01/02/2012 06/16/2015 Advanced directives, counseling/discussion 08/2706/16/2015 HTN, goal below 130/80 08/30/2010 2 LEFT HIP CLAUDICATION 10/29/2008 06/16/2015 ADVANCE DIRECTIVE INFORMATION 03/16/2008 Overview: Pt states he does not have a living will. Pt given an advanced directive brochure. Pt states that he has POA in . Will bring in next time. PAIN IN LIMB, RIGHT DISTAL GREAT TOE 02/06/2008 02/06/2008 ONYCHOLYSIS 02/06/2008 06/16/2015 PVD (PERIPHERAL VASCULAR DISEASE) [facility] 02/06/2008 01/02/2012 Screening for prostate cancer 02/06/2008 Overview: Resolved per Screening Diagnosis Protocol #6 Tobacco use disorder 02/06/2008 01/02/2012 Osteoporosis 02/06/2008 06/16/2015 PAIN IN LIMB, LEFT DISTAL GREAT TOE 02/06/2008 06/16/2015 HTN, goal below 140/90 3 HTN, goal below 140/80 5 documented as of this encounter (statuses as of 03/07/2023) Immunizations Name Administration Dates Next Due COVID-19 [...] e alcohol) Social drinker prior to 2009 Food Insecurity Answer Date Recorded Within the past 12 months, y ou worried that your food would run out before you got money to buy more. Never true 04/02/2019 Within the past 12 months, t he food you bought just didn't last and you didn't have money to get more. Never true 04/02/2019 Sex Assigned at Date Recorded Male 04/02/2019 8:[address] Job Start Date Occupation Industry Not on file Not on file Not on file documented as of this encounter Last Filed Vital Signs Vital Sign Reading Time Taken Comments Blood Pressure 132/62 03/07/2023 8:47 AM EDT Pulse 71 03/07/2023 8:47 AM EDT Temperature 36.8 C (98.2 F) 03/07/2023 8:47 AM ED T Respiratory Rate 18 03/07/2023 8:47 AM EDT Oxygen Saturation 98% 03/07/2023 8:47 AM EDT Inhaled Oxygen Concentration - - Weight - [...] Nursing Notes * Anh Alfonso RN - 03/07/2023 3:36 PM EDT Functional status at today's visit: Restricted in [...] during treatment today. Discharged in stable condition. AB assisted. * Anh Alfonso RN - 03/07/2023 10:47 AM EDT Chair 3, Gemzar/Cisplatin D8C1. Pt seen by Dr. Huddleston yesterday, 03/06/23; refer to OV notes. Per Dr. Huddleston, labs okay to proceed with treatment as ordered. Alteration placed for IV hydration prior toCisplatin: NSS 1L over 2 hours. Pt reports feeling well today, with no acute concerns. Pt stated hehas increased hydration at home, and appetite is stable. Pt denies pain, bowel issues, signs of infection, bleeding and mucositis. VAD accessed; NSS infusing. Safety and Risk for Injury Patient will remain free from injury. Ensure appropriate safety devices are available. Provide and maintain safe environment. documented in this encounter Plan of Treatment Upcoming Encounters Date Type Specialty Care Team Description 03/12/2023 Office Visit Family Medicine Chema Combs MD [address] [place] [address] 03/14/2023 Telemedicine Nutrition Services Nery Church, TALAT [address] [place] [address] 03/20/2023 Laboratory Laboratory [place], Lab Scenery [address] [place] [address] 03/20/2023 Office Visit Hematology Oncology Scout Huddleston MD [address] [place] [address] 03/21/2023 Hem/Onc Treatment Hematology Oncology [place], Chair 5 Hem Onc Scenery [address] [place] [address] 04/30/2023 Office Visit Family Medicine Chema Combs MD [address] [place] [address] 09/19/2023 Office Visit Cardiology Prashant Ruiz, [address] [place] [address] Scheduled Procedures Name Priority Associated Diagnoses Date/Ti [...] Vaccine ( season) 2023 06/07/2021, 08/01/2020, 06/30/2020 Influenza Vaccine (FLU shot) (#1) 2023 04/06/2022, 02/24/2021, 04/13/2020, Additional history exists B-12 12/12/2023 12/11/2022 HbA1c 12/12/2023 12/11/2022, 06/28, 07/06/2021, Additional history exists O2 ASSESSMENT COMPLETED IN PAST YEAR FOR COPD 02/23/2024 02/22/2023 GFR 03/06/2024 03/06/2023, 10/0 09/2022, 02/21/2023, Additional history exists Colonoscopy 07/06/2026 07/06/2016, 07/06/2016 [...] 08/29/2016 LUNG CANCER SCREENING - USE SMARTSET [id number] Completed 10/01/2017 Zoster Vaccines Completed 12/14/2019, 09/24, 02/16/2013 GARDASIL-HPV IMMUNIZATION SERIES Aged Out No longer eligible based on patient's age to complete this topic Hepatitis B Aged Out No longer eligi ble based on patient's age to complete this topic documented as of this encounter Medical Devices Implanted Type Area Engineering Secretary Device Identifier Shelf Expiration Date Model / Serial / Lot Port Implant W/8f Poly Cath - [id number] Implanted:Qty : 1 on 02/12/2023 at [facility] Right: Chest CR BARD : PERIPHERAL VASCULAR [id number] 04/25/2024 [id number] / / [id number] documented as of this encounter Visit Diagnoses [...] PRN Other, Hypersensitivity Reaction, Starting on Tran 03/07/23 at 0901, Until Sat03/08/23 at 0900, For 24 hours EPINEPHrine 1 MG/ML inj 0.3 mg 0.3 mg, Intramuscular, ONCE PRN Other, Hypersensitivity Reaction or Anaphylaxis, Starting on Tran 03/07/23 at 0901, Until Sat03/08/23 at 0900, For 24 hours hEParin 100 UNIT/ML Lock Flush inj 500 Units 500 Units (5 mL), IV Lock, PRN Other, IV Flush, Starting on Tran 03/07/23 at 0901, Until Sat03/08/23 at 0900, For 24 hours, Do not flush if lock, PICC, or central line not in place; IV infusing or unable to flush. Given 03/07/2023 2:12 PM EDT 500 Units Hydrocortisone Sod Suc (PF) (Solu-Cortef) inj 100 mg 100 mg, IV Push, ONCE PRN Other, Hypersensitivity Reaction, Starting on Tran 03/07/23 at 0901, Until Sat03/08/23 at 0900, For 24 hours NSS 1,000 mL with magnesium sulfate 1 g infusion Intravenous, at 500 mL/hr Administer over 2 Hours, Post-cisplatin hydration, CONTINUOUS, Starting on Tran 03/07/23 at 1145, Until Discontinued Start Infusion 03/07/2023 12:07 PM EDT 500 mL/hr NSS infusion 500 mL, Intravenous, at 50 mL/hr, CONTINUOUS, Starting on Tran 03/07/23 at 1015, Until Sat03/07/23 at 2014 Start Infusion 03/07/2023 8:55 AM EDT 500 mL 50 mL/hr oxygen GAS Inhalation, OXYGEN, First dose on Tran 03/07/23 at 0945, Until Discontinued, Device/Managed by: Low Flow Device, [...] PRN Other, IV Flush, Starting on Tran 03/07/23 at 0901, Until Sat03/08/23 at 0900, For 24 hours, Do not flush if lock, PICC, or central line not in place; IV infusing or unable to flush. Given 03/07/2023 2:12 PM EDT 10 mL Inactive Administered Medications - up to 3 most recent administrations Medication Order MAR Action Action Date Dose Rate Site CISplatin (Platinol) 58 mg in NSS 500 mL infusion 58 mg (25 mg/m2 2.32 m2 Treatment Plan BSA from Recorded weight), IV Piggyback, Administer over 60 Minutes, PROTECT FROM LIGHT, ONCE, 1 dose, On Tran 03/07/23 at 1045 Start Infusion 03/07/2023 11:01 AM EDT 58 mg 500 mL/hr fosaprepitant Dimeglumine (Emend) 150 mg, ondansetron (Zofran) 16 mg, dexamethasone sodium phosphate 12 mg in NSS 250 mL Infusion 150 mg, IV Piggyback, ONCE, 1 dose, On Tran 03/07/23 at 1015, Administer over 30 Minutes, Give 30 minutes prior to chemotherapy. Infuse over 30 minutes. Start Infusion 03/07/2023 9:43 AM EDT 150 mg 500 mL/hr gemcitabine (Gemzar) 2,400 mg in NSS 250 mL infusion 2,400 mg (rounded from 2,320 mg = 1,000 mg/m2 2.32 m2 Treatment Plan BSA from Recorded weight), IV Piggyback, ONCE, 1 dose, On Tran 03/07/23 at 1045, Administer over 30 Minutes Start Infusion 03/07/2023 10:23 AM EDT 2,400 mg 500 mL/hr NSS infusion FOR HYDRATION Intravenous, at 500 mL/hr Administer over 2 Hours, ONCE, 1 dose, On Tran 03/07/23 at 0945 Start Infusion 03/07/2023 8:55 AM EDT 1,000 mL 500 mL/hr potassium chloride ER tab 20 mEq 20 mEq, Oral, ONCE, On Tran 03/07/23 at 1145, For 1 dose, This med should NOT be Crushed or Chewed Give with post-hydration. Hold if serum potassium is greater than or equal to 5 mmol/L. Given 03/07/2023 12:07 PM EDT 20 mEq documented in this encounter Advance Directives Latest Code Status on File Code Status Date Activated Date Inactivated Comments Full Code 12/27/2022 3:40 PM 01/01/2023 8:39 PM This or aj reflects the patients wishes and were consensually agreed upon. Question Answer Comments Discussion of Advance Directives occurred with: Patient Care Teams Manager Benefit Relationship Specialty Start Date End Date Chema Combs MD [address] [place] [address] PCP - General Family Medicine 07/02/18 documented as of this encounter
--- OUTSIDE RECORDS SUMMARY | 2023-05-22 14:53 | External Medical Summary | Summary of Care ---
Author Name Unknown Organization [facility] Address [address] [facility] [address] Phone [phone] Care Team Providers Care Animal Handler Name Role Phone Chema Combs MD Primary Care Provider [phone] Encounter Details Date Type Department Care Team Description 03/06/2023 Orders Only Hematology/Oncology [facility] [place] [address] [facility] [place] [address] Scout Huddleston MD [address] [place] [address] Allergies Active Allergy Reactions Severity Noted Date Comments Lisinopril Cough Low 08/18/2009 documented as of this encounter (statuses as of 03/06/2023) Medications Medication Sig Dispensed Refills Start Date [...] as of this encounter (statuses as of 03/06/2023) Active Problems Problem Noted Date Gall bladder [...] as of this encounter (statuses as of 03/06/2023) Resolved Problems Problem Noted Date Resolved Date [...] ONYCHOLYSIS 02/06/2008 06/16/2015 PVD (PERIPHERAL VASCULAR DISEASE) [place] [place] 02/06/2008 01/02/2012 Screening for prostate cancer 02/06/2008 Overview: Resolved per Screening Diagnosis Protocol #6 Tobacco use disorder 02/06/2008 01/02/2012 Osteoporosis 02/06/2008 06/16/2015 PAIN IN LIMB, LEFT DISTAL GREAT TOE 02/06/2008 06/16/2015 HTN, goal below 140/90 3 HTN, goal below 140/80 5 documented as of this encounter (statuses as of 03/06/2023) Immunizations Name Administration Dates Next Due COVID-19 [...] Encounters Date Type Specialty Care Team Description 03/07/2023 Hem/Onc Treatment Hematology Oncology [place], Chair 5 Hem Onc Scenery [address] [place] [address] 03/12/2023 Office Visit Family Medicine Chema Combs MD [address] [place] [address] 03/14/2023 Telemedicine Nutrition Services Nery Church, RDN [address] [place] [address] 04/30/2023 Office Visit Family Medicine Chema Combs MD [address] [place] [address] 09/19/2023 Office Visit Cardiology Prashant Ruiz, DO [address] [place] [address] Scheduled Procedures Name Priority Associated Diagnoses Date/Ti [...] 08/29/2016 LUNG CANCER SCREENING - USE SMARTSET [id number] Completed 10/01/2017 Zoster Vaccines Completed 12/14/2019, 09/24, 02/16/2013 GARDASIL-HPV IMMUNIZATION SERIES Aged Out No longer eligible based on patient's age to complete this topic Hepatitis B Aged Out No longer eligi ble based on patient's age to complete this topic documented as of this encounter Medical Devices Implanted Type Area Coper Hand Device Identifier Shelf Expiration Date Model / Serial / Lot Port Implant W/8f Poly Cath - [id number] Implanted:Qty : 1 on 02/12/2023 at [facility] Right: Chest CR BARD : PERIPHERAL VASCULAR [id number] 04/25/2024 [id number] / / [id number] documented as of this encounter Advance Directives Latest Code Status on File Code Status Date Activated Date Inactivated Comments Full Code 12/27/2022 3:40 PM 01/01/2023 8:39 PM This or aj reflects the patients wishes and were consensually agreed upon. Question Answer Comments Discussion of Advance Directives occurred with: Patient Care Teams Animal Handler Relationship Specialty Start Date End Date Chema Combs MD [address] [facility] [place] [address] PCP - General Family Medicine 07/02/18 documented as of this encounter
--- OUTSIDE RECORDS SUMMARY | 2023-05-22 14:53 | External Medical Summary | Summary of Care ---
Author Name Unknown Organization [facility] Address [address] [place] [address] Phone [phone] Care Team Providers Care Steel Worker Name Role Phone Chema Combs MD Primary Care Provider Reason for Visit * Reason Comments Acute 2 month return Encounter Details Date Type Department Care Team Description 03/12/2023 Office Visit [facility] [address] [place] [address] Chema Combs MD [address] [place] [address] Carcinoma of gallbladder (HCC)*; Constipation, unspecified constipation type Allergies Active Allergy Reactions Severity Noted Date Comments Lisinopril Cough Low 08/18/2009 documented as of this encounter (statuses as of 03/12/2023) Medications Medication Sig Dispensed Refills Start Date [...] as of this encounter (statuses as of 03/12/2023) Active Problems Problem Noted Date Gall bladder [...] as of this encounter (statuses as of 03/12/2023) Resolved Problems Problem Noted Date Resolved Date [...] 02/06/2008 06/16/2015 PVD (PERIPHERAL VASCULAR DISEASE) PERIPH VASKevin MCKEON,UNSP 02/06/2008 01/02/2012 Screening for prostate cancer 02/06/2008 Overview: Resolved per Screening Diagnosis Protocol #6 Tobacco use disorder 02/06/2008 01/02/2012 Osteoporosis 02/06/2008 06/16/2015 PAIN IN LIMB, LEFT DISTAL GREAT TOE 02/06/2008 06/16/2015 HTN, goal below 140/90 3 HTN, goal below 140/80 5 documented as of this encounter (statuses as of 03/12/2023) Immunizations Name Administration Dates Next Due COVID-19 [...] Sign Reading Time Taken Comments Blood Pressure 144/62 03/12/2023 12:41 PM EDT Pulse 120 03/12/2023 12:41 PM EDT Temperature 35.9 C (96.7 F) 03/12/2023 1 2:41 PM EDT Respiratory Rate 17 03/12/2023 12:4 1 PM EDT Oxygen Saturation 98% 03/12/2023 12: 41 PM EDT Inhaled Oxygen Concentration - - Weight 101.7 kg (224 lb 3.2 oz) 023 12:41 PM EDT Height - - Body Mass Index 30.41 01/10/2023 10:15 AM EDT documented in this encounter Functional [...] as of this encounter Progress Notes * Chema Combs MD - 03/12/2023 1:01 PM EDT Subjective: Jh Fields is a 72 year old male. 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 He has been working with Dr. Huddleston in his doing chemotherapy. He started with chlorambucil and ibrutinib but did not tolerate that. Now is on a regimen that includes cyst [place] plus Gemcitabine and durvalumab. His tolerated this regimen. He is doing IV hydration in between infusions of the chemo which is occurring every 3 weeks. Last infusion was 5 days ago. It has been constipating. He so far has managed just by taking Senokot on a daily basis. Overall he feels much better than when he was initially diagnosed in hospitalized. He has been careful with his diet. He still was eating some meat but only no more than 4 oz. it was beef broth that seem to set the off with abdominal pain that led to his initial hospitalization. He was able to get to [facility] about 4 separate days. His next school is to be able to enjoy Thanksgiving dinner. Earlier today he had an episode in which he felt very weak and chilled. This lasted only an hour soin he seem to get back to his normal self as he is right now. This is not been a recurring episode. Patient Active Problem List Diagnosis Code Chronic 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 ([facility]) C91.10 Dyslipidemia, goal LDL below 100 E78.5 COPD, mild ([facility]) J44.9 POLST (Physician Orders for Life-Sustaining Treatment) Z78.9 HTN, goal below 150/90 I10 Primary osteoarthritis of cervical spine M47.812 Primary osteoarthritis of lumbar spine M47.816 Primary osteoarthritis of one hip M16.10 MEDICATION USE AGREEMENT [id number] Encounter for long-term (current) use of medications Z79.899 PAF (paroxysmal atrial fibrillation) ([facility]) I48.0 Essential tremor G25.0 Prediabetes R73.03 Liver mass R16.0 Transaminitis R74.01 Gall bladder disease K82.9 Encounter for antineoplastic chemotherapy Z51.11 Carcinoma of gallbladder ([facility]) C23 Current Outpatient Medications Medication Sig Dispense Refill VITAMIN D 1000 UNITS PO CAPS Take 2 Capsules by mouth in the morning. 60 Cap 11 Acetaminophen 500 MG Capsule Take 2 Capsules by mouth every 6 hours as needed for Fever >38C(100.5F) or Pain, Mild. aspirin enteric coated 81 MG TBEC Take 1 Tablet by mouth in the morning. Cmysiwvoxaf-Aqfivnyek-Pwgnav 100-62.5-25 MCG/ACT Aerosol Powder Breath Activated Inhale [...] No current facility-administered medications for this visit. Review of patient's allergies indicates: Allergen Reactions Lisinopril Cough Objective: BP 144/62 | Pulse 120 | Temp 35.9 C (96.7 F) | Resp 17 | Wt 101.7 kg (224 lb 3.2 oz) | SpO2 98%| BMI 30.41 kg/m | BSA 2.27 m Physical Exam: CONST: alert, pleasant, no acute distress HEAD: normocephalic, atraumatic NECK: supple, soft, no adenopathy Eyes - PERRLA, EOM'I. No scleral icterus OROPHARYNX: clear, no swelling or erythema, moist CV: regular rate and rhythm, no murmur CHEST: clear to auscultation bilaterally, no rales or wheezing. Port in the right subclavicular area mildly tender ABD: soft, non tender, non distended, no masses or hepatosplenomegaly EXT: no edema, no joint swelling or deformities, . 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 SKIN: no rash or significant lesions ASSESSMENT/PLAN: Metastatic biliary carcinoma-continue to follow closely with Dr. Huddleston. We reviewed blood work dating back 4 months. He question whether he needed to be on potassium supplement but I indicated that his potassium on all occasions has been nor I will daily patient. He does get potassium tablets before chemo. Goal remains palliative. He understands that this is not a curable cancer. But, so far so good. A constipation-continue Senokot every day. I recommend MiraLax 1 dose the day after chemo has that is when he seems to be most constipated. He can use this every other day if no bowel movement. Routine health maintenance-flu shot today. I suggested COVID vaccine. He is going to as Dr. Huddleston he will see him in a week's time. See again 3 months time. Chema Combs MD documented in this encounter Nursing Notes * Maddie Bains LPN - 03/12/2023 12:40 PM EDT The patient has been properly identified by confirmation of name and date of . Chief Complaint Patient presents with Acute 2 month return Had some weakness this morning and last chemo was on documented in this encounter Plan of Treatment Upcoming Encounters Date Type Specialty Care Team Description 03/20/2023 Laboratory Laboratory [place], Lab Scene [address] [facility] [address] 03/20/2023 Office Visit Hematology Oncology Scout Huddleston MD [address] [place] [address] 03/21/2023 Hem/Onc Treatment Hematology Oncology [place], Chair 5 Hem Onc Scenery [address] [place] [address] 06/11/2023 Office Visit Family Medicine Chema Combs MD [address] [place] [address] 09/19/2023 Office Visit Cardiology Prashant Ruiz, DO [address] [place] [address] Scheduled Procedures Name Priority Associated Diagnoses Date/Ti [...] ASSESSMENT COMPLETED IN PAST YEAR FOR COPD 03/07/2024 03/07/2023 Colonoscopy 07/06/2026 07/06/2016, 07/06/2016 Colorectal Cancer Screening [...] 08/29/2016 LUNG CANCER SCREENING - USE SMARTSET 24331 Completed 10/01/2017 Zoster Vaccines Completed 12/14/2019, 09/24, 02/16/2013 Influenza Vaccine (FLU shot) Completed , 04/06/2022, 02/24/2021, Additional history exists GARDASIL-HPV IMMUNIZATION SERIES Aged Out No longer eligible based on patient's age to complete this topic Hepatitis B Aged Out No longer eligi ble based on patient's age to complete this topic documented as of this encounter Medical Devices Implanted Type Area Track Helper Device Identifier Shelf Expiration Date Model / Serial / Lot Port Implant W/8f Poly Cath - [id number] Implanted:Qty : 1 on 02/12/2023 at [facility] Right: Chest CR BARD : PERIPHERAL VASCULAR [id number] 04/25/2024 [id number] / / [id number] documented as of this encounter Visit Diagnoses Diagnosis Carcinoma of gallbladder (HCC)- Primary Malignant neoplasm of gallbladder Constipation, unspecified constipation type documented in this encounter Advance Directives Latest Code Status on File Code Status Date Activated Date Inactivated Comments Full Code 12/27/2022 3:40 PM 01/01/2023 8:39 PM This or aj reflects the patients wishes and were consensually agreed upon. Question Answer Comments Discussion of Advance Directives occurred with: Patient Care Teams Steel Worker Relationship Specialty Start Date End Date Chema Combs MD [address] [place], [place] [phone] PCP - General Family Medicine 07/02/18 documented as of this encounter"
--- OUTSIDE RECORDS SUMMARY | 2023-05-22 14:53 | External Medical Summary | Summary of Care ---
Author Name Unknown Organization [facility] Address [address] [facility] [address] Phone [phone] Care Team Providers Care Bundle Cutter Name Role Phone Chema Combs MD Primary Care Provider [phone] Reason for Visit * Reason Comments Chemotherapy Cisplatin/Gemzar D1C 8 * Episode Based Medications (Routine) - Authorized Specialty Diagnoses / Procedures Referred By Contac t Referred To Contact Diagnoses Encounter for antineoplastic chemotherapy Gall bladder disease Carcinoma of gallbladder (HCC) Procedures TN CISPLATIN 10 MG INJECTION TN FOSAPREPITANT INJECTION TN IN GEMCITABINE HCL NOS 200MG TN INJ., DURVALUMAB, 10 MG Scout Huddleston MD [address] [place] [address] Anc Hem/Onc Scenery [place] [address] [place] [phone] Referral ID Status Reason Start Date Expiration Date V isits Requested Visits Authorized [id number] Authorized 01/17/2023 01/18/2024 999 99 Encounter Details Date Type Department Care Team Description 03/07/2023 Hem/Onc Treatment Hematology/Oncology Treatment, [place] [address] [place] [address] Chandrika, Chair 5 Hem Onc Scenery [address] [place] [address] Encounter for antineoplastic chemotherapy*; Gall bladder disease; Carcinoma of gallbladder (HCC) Allergies Active Allergy Reactions Severity Noted Date Comments Lisinopril Cough Low 08/18/2009 documented as of this encounter (statuses as of 03/08/2023) Medications Medication Sig Dispensed Refills Start Date [...] as of this encounter (statuses as of 03/08/2023) Active Problems Problem Noted Date Gall bladder [...] as of this encounter (statuses as of 03/08/2023) Resolved Problems Problem Noted Date Resolved Date [...] ONYCHOLYSIS 02/06/2008 06/16/2015 PVD ([facility]) [facility] 02/06/2008 01/02/2012 Screening for prostate cancer 02/06/2008 Overview: Resolved per Screening Diagnosis Protocol #6 Tobacco use disorder 02/06/2008 01/02/2012 Osteoporosis 02/06/2008 06/16/2015 PAIN IN LIMB, LEFT DISTAL GREAT TOE 02/06/2008 06/16/2015 HTN, goal below 140/90 3 HTN, goal below 140/80 5 documented as of this encounter (statuses as of 03/08/2023) Immunizations Name Administration Dates Next Due COVID-19 [...] Family Medicine Chema Combs MD [address] [place] [address] 03/14/2023 Telemedicine Nutrition Services Nery Church, TALAT [address] [place] [address] 03/20/2023 Laboratory Laboratory [place], Lab Scenery [address] [place] [address] 03/20/2023 Office Visit Hematology Oncology Scout Huddleston MD [address] [place] [address] 03/21/2023 Hem/Onc Treatment Hematology Oncology [place], Chair 5 Hem Onc Scenery [address] [place] [address] 04/30/2023 Office Visit Family Medicine Chema Combs MD [address] [place] [address] 09/19/2023 Office Visit Cardiology Prashant Ruiz, [address] [place] [address] Scheduled Procedures Name Priority Associated Diagnoses Date/Ti [...] 07/06/2021, Additional history exists GFR 03/06/2024 03/06/2023, 1009/2022, 02/21/2023, Additional history exists O2 ASSESSMENT COMPLETED [...] 08/29/2016 LUNG CANCER SCREENING - USE SMARTSET 13107 Completed 10/01/2017 Zoster Vaccines Completed 12/14/2019, 09/24, 02/16/2013 GARDASIL-HPV IMMUNIZATION SERIES Aged Out No longer eligible based on patient's age to complete this topic Hepatitis B Aged Out No longer eligi ble based on patient's age to complete this topic documented as of this encounter Medical Devices Implanted Type Area Cartography Professor Device Identifier Shelf Expiration Date Model / Serial / Lot Port Implant W/8f Poly Cath - [id number] Implanted:Qty : 1 on 02/12/2023 at [facility] Right: Chest CR BARD : PERIPHERAL VASCULAR [id number] 04/25/2024 [id number] / / [id number] documented as of this encounter Visit Diagnoses [...] 10:23 AM EDT 2,400 mg 500 mL/hr hEParin 100 UNIT/ML Lock Flush inj 500 Units 500 Units (5 mL), IV Lock, PRN Other, IV Flush, Starting on Tran 03/07/23 at 0901, Until Tran 03/07/23 at 1937, For 24 hours, Do not flush if lock, PICC, or central line not in place; IV infusing or unable to flush. Given 03/07/2023 2:12 PM EDT 500 Units NSS 1,000 mL with magnesium sulfate 1 g infusion Intravenous, at 500 mL/hr Administer over 2 Hours, Post-cisplatin hydration, CONTINUOUS, Starting on Tran 03/07/23 at 1145, Until Tran 03/07/23 at 1937 Start Infusion 03/07/2023 12:07 PM EDT 500 mL/hr NSS infusion FOR HYDRATION Intravenous, at 500 mL/hr Administer over 2 Hours, ONCE, 1 dose, On Tran 03/07/23 at 0945 Start Infusion 03/07/2023 8:55 AM EDT 1,000 mL 500 mL/hr NSS infusion 500 mL, Intravenous, at 50 mL/hr, CONTINUOUS, Starting on Tran 03/07/23 at 1015, Until Tran 03/07/23 at 1937 Start Infusion 03/07/2023 8:55 AM EDT 500 mL 50 mL/hr potassium chloride ER tab 20 mEq 20 mEq, Oral, ONCE, On Tran 03/07/23 at 1145, For 1 dose, This med should NOT be Crushed or Chewed Give with post-hydration. Hold if serum potassium is greater than or equal to 5 mmol/L. Given 03/07/2023 12:07 PM EDT 20 mEq sodium chloride 0.9 % flush central line 10 mL 10 mL, IV Push, PRN Other, IV Flush, Starting on Tran 03/07/23 at 0901, Until Tran 03/07/23 at 1937, For 24 hours, Do not flush if lock, PICC, or central line not in place; IV infusing or unable to flush. Given 03/07/2023 2:12 PM EDT 10 mL documented in this encounter Advance Directives Latest Code Status on File Code Status Date Activated Date Inactivated Comments Full Code 12/27/2022 3:40 PM 01/01/2023 8:39 PM This or aj reflects the patients wishes and were consensually agreed upon. Question Answer Comments Discussion of Advance Directives occurred with: Patient Care Teams Bundle Cutter Relationship Specialty Start Date End Date Chema Combs MD [address] [place], [place] [phone] PCP - General Family Medicine 07/02/18 documented as of this encounter
--- OUTSIDE RECORDS SUMMARY | 2023-05-22 14:53 | External Medical Summary ---
Author Name Unknown Address Unknown Organization K[facility] [address] [place] [address] Laboratory Report Ordering Provider Test Date Status MARLON ORTEGA 03/20/2023 09:07:37 Final Observation Date Value Abnormality Reference (Units ) Status BUN 03/20/2023 09:07:37 29 Above high normal 6-20 (mg/dL) Final Creatinine 03/20/2023 09:07:37 1.2 0.6-1.2 (mg/dL) Final Glomerular filtration rate/1.73 sq M.predicted [Volume Rate/Area] in Serum, Plasma or Blood by Creatinine-based formula (CKD-EPI) 03/20/2023 09:07:37 64 >=60 (mL/min) Final eGFR is calculated based on the CKD-EPI 2020 equation SODIUM 03/20/2023 09:07:37 139 135-146 (m mol/L) Final Potassium 03/20/2023 09:07:37 4.1 3.5-5.1 (m mol/L) Final Cl 03/20/2023 09:07:37 102 98-107 (mm ol/L) Final CO2 03/20/2023 09:07:37 26 22-32 (mmo l/L) Final Anion gap 03/20/2023 09:07:37 11 7-15 (mmol /L) Final Glucose 03/20/2023 09:07:37 166 Above high normal 70 -120 (mg/dL) Final Albumin 03/20/2023 09:07:37 4.0 3.8-5.0 (g /dL) Final AST (Aspartate aminotransferase) 03/20/2023 09:07:37 30 10-50 (U/L) Fin al Alk Phos 03/20/2023 09:07:37 181 Above high normal 35 -130 (U/L) Final Bilirubin, Total 03/20/2023 09:07:37 0.5 <=1 .2 (mg/dL) Final Calcium 03/20/2023 09:07:37 9.9 8.4-10.2 ( mg/dL) Final Protein 03/20/2023 09:07:37 7.1 6.0-8.3 (g /dL) Final ALT (Alanine aminotransferase) 03/20/2023 09:07:37 20 10-50 (U/L) Donell matthew Performing Location [facility] [address] [place] [address]
--- OUTSIDE RECORDS SUMMARY | 2023-05-22 14:53 | External Medical Summary ---
Author Name Unknown Address Unknown Organization [facility] [address] [place] [address] Laboratory Report Ordering Provider Test Date Status MARLON ORTEGA 03/20/2023 09:07:37 Final Observation Date Value Abnormality Reference (Units ) Status SYNC LEUKOCYTES IN BLOOD BY AUTOMATED COUNT 03/20/2023 09:07:37 31.82 Above high normal 4.00-10.80 (K/uL) Final Neutrophils/100 leukocytes in Blood by Manual count 03/20/2023 09:07:37 29.0 Below low normal 40.0-75.0 (%) Final Lymphocytes/100 leukocytes in Blood by Manual count 03/20/2023 09:07:37 66.0 Above high normal 18.0-42.0 (%) Final Monocytes/100 leukocytes in Blood by Manual count 03/20/2023 09:07:37 3.0 1.0-11.0 (%) Final Basophils/100 leukocytes in Blood by Manual count 03/20/2023 09:07:37 1.0 0.0-2.0 (%) Final Metamyelocytes/100 leukocytes in Blood by Manual count 03/20/2023 09:07:37 1.0 Above high normal <=0.0 (%) Final Neutrophils [#/volume] in Blood by Manual count 03/20/2023 09:07:37 9.23 Above high normal 1.80-7.70 (K/uL) Final Lymphocytes [#/volume] in Blood by Manual count 03/20/2023 09:07:37 21.00 Above high normal 1.00-4.80 (K/uL) Final Monocytes [#/volume] in Blood by Manual count 03/20/2023 09:07:37 0.95 0.00-1.10 (K/uL) Final Basophils [#/volume] in Blood by Manual count 03/20/2023 09:07:37 0.32 Above high normal 0.00-0.20 (K/uL) Final Metamyelocytes [#/volume] in Blood by Manual count 03/20/2023 09:07:37 0.32 Above high normal <=0.00 (K/uL) Final Nucleated erythrocytes/100 leukocytes [Ratio] in Blood by Automated count 03/20/2023 09:07:37 Final Variant lymphocytes [Presence] in Blood by Light microscopy 03/20/2023 09:07:37 Present Abnormal None Seen Final Performing Location [facility] [address] [place] [address]
--- OUTSIDE RECORDS SUMMARY | 2023-05-22 14:53 | External Medical Summary | Summary of Care ---
Author Name Unknown Organization [facility] Address [address] [facility] [address] Phone [phone] Care Team Providers Care Fuel Cell Binder Name Role Phone Chema Combs MD Primary Care Provider [phone] Encounter Details Date Type Department Care Team (Late st Contact Info) Description 03/18/2023 Orders Only Hematology/Oncology [facility] [place] [address] [facility] [place] [address] Scout Huddleston MD [address] [facility] [place] [address] Allergies Active Allergy Reactions Criticality Noted Date Comments Lisinopril Cough Low 08/18/2009 documented as of this encounter (statuses as of 03/18/2023) Medications Medication Sig Dispensed Refills Start Date [...] ons:HTN, goal below 150/90,PAF (paroxysmal atrial fibrillation) ([facility]) TAKE 1 TABLET BY MOUTH TWICE A [...] External Cream (Emla)Indications:C arcinoma of gall bladder ([facility]) APPLY TO SKIN OVER MEDIPORT & [...] as of this encounter (statuses as of 03/18/2023) Active Problems Problem Noted Date Diagnosed Date [...] as of this encounter (statuses as of 03/18/2023) Resolved Problems Problem Noted Date Diagnosed Date [...] as of this encounter (statuses as of 03/18/2023) Immunizations Name Administration Dates Next Due COVID-19 [...] Description 03/20/2023 9:30 AM EDT Laboratory Laboratory [facility] [address] [place] [id number] Chandrika Lab [facility] [address] [place] [address] 03/20/2023 10:00 AM EDT Office Visit Hematology/Oncology [facility] [address] [place] [address] Scout Huddleston MD [address] [place] [address] 03/21/2023 8:15 AM EDT Hem/Onc Treatment Hematology/Oncology Treatment, [place] [address] [place] [address] Chandrika, Chair 5 Hem Onc [facility] [address] [place] [address] 06/11/2023 8:20 AM EST Office Visit [facility] [address] [place] [phone] Chema Combs MD [address] [place] [address] 09/19/2023 1:30 PM EDT Office Visit Cardiology, [facility] [address] [place] [address] Prashant Ruiz, [address] [place] [address] Scheduled Procedures Name Priority Associated Diagnoses Date/Ti [...] 08/29/2016 LUNG CANCER SCREENING - USE SMARTSET 21008 Completed 10/01/2017 Zoster Vaccines Completed 12/14/2019, 09/24, 02/16/2013 Influenza Vaccine (FLU shot) Completed , 04/06/2022, 02/24/2021, Additional history exists GARDASIL-HPV IMMUNIZATION SERIES Aged Out No longer eligible based on patient's age to complete this topic Hepatitis B Aged Out No longer eligi ble based on patient's age to complete this topic documented as of this encounter Medical Devices Implanted Type Area General Surgery Physician Assistant Device Identifier Shelf Expiration Date Model / Serial / Lot Port Implant W/8f Poly Cath - [id number] Implanted:Qty : 1 on 02/12/2023 at [facility] Right: Chest CR BARD : PERIPHERAL VASCULAR [id number] 04/25/2024 [id number] / / [id number] documented as of this encounter Advance Directives Latest Code Status on File Code Status Date Activated Date Inactivated Comments Full Code 12/27/2022 3:40 PM 01/01/2023 8:39 PM This or aj reflects the patients wishes and were consensually agreed upon. Question Answer Comments Discussion of Advance Directives occurred with: Patient Care Teams Fuel Cell Binder Relationship Specialty Start Date End Date Chema Combs MD [address] [place] [address] PCP - General Family Medicine 07/02/18 documented as of this encounter
--- OUTSIDE RECORDS SUMMARY | 2023-05-22 14:53 | External Medical Summary | Summary of Care ---
Author Name Unknown Organization [facility] Address [address] [facility] [address] Phone [phone] Care Team Providers Care Internal Recruiter Name Role Phone Chema Combs MD Primary Care Provider [phone] Reason for Visit * Reason Comments Follow Up Encounter Details Date Type Department Care Team Description 03/06/2023 Office Visit Hematology/Oncology [facility] Chand[place] [address] [facility] [place] [address] Scout Huddleston MD 200 [facility] [place] [address] Chronic lymphocytic 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 [...] 06/16/2015 PVD (PERIPHERAL VASCULAR DISEASE) PERIPH SPRING MCKEON,UNSP 02/06/2008 01/02/2012 Screening for prostate cancer [...] Sign Reading Time Taken Comments Blood Pressure 149/81 03/06/2023 9:53 AM EDT Pulse 91 03/06/2023 9:53 AM EDT Temperature 36.5 C (97.7 F) 03/06/2023 9:53 AM ED T Respiratory Rate - - Oxygen Saturation - - Inhaled Oxygen Concentration - - Weight 103.1 kg (227 lb 6.4 oz) 03/06/2023 9:53 AM EDT Height - - Body Mass Index 30.84 01/10/2023 10:15 AM EDT documented in this [...] Progress Notes * Scout Huddleston MD - 03/06/2023 9:44 AM EDT Outpatient Consult Note Data Source: Patient, Epic record. Data Source: Patient, Epic record. 03/06/2023 9:44 AM Jh Fields Jr. 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 History of CLL Current [...] but not limited to upper GI tract, awrdves-dsbrcegjueg-unmeuzqndk system and lung. Recommend correlation with clinical [...] diagnosed of lung cancer Interval History: He only received day 1 of chemotherapy and then speak on hold because of the abnormal kidney function. Overall clinically he is feeling better and stronger without any new symptoms of complain. No significant side effects from the toxicity. He has good energy level. Overall his abdominal pain and discomfort has improved. LABS/IMAGING: Results for orders placed or performed in visit on 02/28/23 COMPREHENSIVE METABOLIC PANEL Result Value Ref Range BUN 19 6 - 20 mg/dL Creatinine 1.3 (H) 0.6 - 1.2 mg/dL Estimated Glomerular Filtration Rate 59 (L) >=60 mL/min Sodium 139 135 - 146 mmol/L Potassium 4.1 3.5 - 5.1 mmol/L Chloride 99 98 - 107 mmol/L CO2 28 22 - 32 mmol/L Anion Gap 12 7 - 15 mmol/L Glucose 124 (H) 70 - 120 mg/dL Albumin 4.1 3.8 - 5.0 g/dL AST 29 10 - 50 U/L Alkaline Phosphatase 239 (H) 35 - 130 U/L Bilirubin, Total 0.7 <=1.2 mg/dL Calcium 9.3 8.4 - 10.2 mg/dL Protein 5.9 (L) 6.0 - 8.3 g/dL ALT 23 10 - 50 U/L TSH WITH FREE T4 IF INDICATED Result Value Ref Range TSH 2.53 0.27 - 4.20 uIU/mL MAGNESIUM Result Value Ref Range Magnesium 1.8 1.5 - 2.6 mg/dL CBC Result Value Ref Range WBC 26.53 (H) 4.00 - 10.80 K/uL RBC 3.85 4.50 - 5.25 M/uL HGB 12.0 (L) 14.0 - 16.8 g/dL HCT 36.2 (L) 40.0 - 48.4 % MCV 94.0 82.0 - 99.5 fL MCH 31.2 27.0 - 34.0 pg MCHC 33.1 32.0 - 36.0 g/dL RDW 14.0 11.5 - 15.5 % PLT 353 140 - 400 K/uL MPV 9.8 6.6 - 11.1 fL nRBCs 0 <=0 /100 WBCs DIFFERENTIAL, TECHNOLOGIST REVIEW Result Value Ref Range WBC 26.53 (H) 4.00 - 10.80 K/uL Neutrophils % 36.0 (L) 40.0 - 75.0 % Lymphocytes % 58.0 (H) 18.0 - 42.0 % Monocytes % 4.0 1.0 - 11.0 % Eosinophils % 1.0 0.0 - 6.0 % Basophils % 1.0 0.0 - 2.0 % Absolute Neutrophils 9.55 (H) 1.80 - 7.70 K/uL Absolute Lymphocytes 15.39 (H) 1.00 - 4.80 K/uL Absolute Monocytes 1.06 0.00 - 1.10 K/uL Absolute Eosinophils 0.27 0.00 - 0.70 K/uL Absolute Basophils 0.27 (H) 0.00 - 0.20 K/uL Reactive Lymphocytes Present (A) None Seen Smudge Cells Present (A) None Seen His blood tests done today showed WBC count of 21.64, hemoglobin 11.6 and platelet count 543. Creatinine is 1.1 and the rest of the electrolytes and LFTs were within acceptable range. REVIEW OF SYSTEMS: General: No Fever, chills, night sweats, or weight loss. HEENT: No change in visual acuity, blurred or double vision. No epistaxis, facial pain, nasal discharge or change in hearing. Denies dysphagia, no muscosal ulceration, or sores noted. Cardiovascular: No chest pain, WIGGINS, or palpitations Respiratory: No shortness of breath, cough, hemoptysis, or pleuritic chest pain Gastrointestinal: Improved abdominal pain, No nausea, vomiting, diarrhea, rectal pain or bleeding [...] 20% MEDICATION USE AGREEMENT 11/19/2016 Paroxysmal A-fib ([facility]) POLST (Physician Orders for Life-Sustaining Treatment) 11/12/2013 Prediabetes 04/2012 PVD (peripheral vascular disease) ([facility]) Current Outpatient Medications Medication Sig Dispense Refill VITAMIN D 1000 UNITS PO CAPS Take 2 Capsules by mouth in the morning. 60 Cap 11 Acetaminophen 500 MG Capsule Take 2 Capsules by mouth every 6 hours as needed for Fever >38C(100.5F) or Pain, Mild. aspirin enteric coated 81 MG TBEC Take 1 Tablet by mouth in the morning. Azvkdrouhci-Moujkyzpx-Zhjrot 100-62.5-25 MCG/ACT Aerosol Powder Breath Activated Inhale [...] Smoking status: Former Packs/day: 2.00 Years: 35.00 Pack years: 70.00 Types: Cigarettes Quit date: 03/10/2010 Years since quittin.9 Smokeless tobacco: Never Vaping Use Vaping Use: [...] combination of gemcitabine plus cisplatin and durvalumab. Overall clinically he is feeling better and stronger without any new symptoms complain. He only have received day 1 of the chemotherapy with overall good tolerance. His abdominal pain has improved. Blood counts are in acceptable range with normal creatinine. Discussed with the patient in detail about the diagnosis and prognosis and reviewed all the available blood test result with him. PLAN: His blood counts are in acceptable range and will proceed with the chemotherapy tomorrow. I will increase the hydration with cisplatin. He will return clinic for follow-up in 3 weeks. The [...] questions to me.) documented in this encounter Plan of Treatment Upcoming Encounters Date Type Specialty Care Team Description 03/07/2023 Hem/Onc Treatment Hematology Oncology [place], Chair 5 Hem Onc Scenery [address] [place] [address] 03/12/2023 Office Visit Chema Pradhan MD [address] [place] [address] 03/14/2023 Telemedicine Nutrition Services Nery Church, RDN [address] [place] [address] 04/30/2023 Office Visit Family Medicine [facility]bs [facility] [address] [facility] [address] 09/19/2023 Office Visit Cardiology Prashant Ruiz, DO [address] [place] [address] Scheduled Procedures Name Priority Associated Diagnoses Date/Ti [...] FOR COPD 02/23/2024 02/22/2023 GFR 03/06/2024 03/06/2023, 09/2022, 02/21/2023, Additional history exists Colonoscopy 07/06/2026 [...] 08/29/2016 LUNG CANCER SCREENING - USE SMARTSET 02591 Completed 10/01/2017 Zoster Vaccines Completed 12/14/2019, 09/24, 02/16/2013 GARDASIL-HPV IMMUNIZATION SERIES Aged Out No longer eligible based on patient's age to complete this topic Hepatitis B Aged Out No longer eligi ble based on patient's age to complete this topic documented as of this encounter Medical Devices Implanted Type Area Head Of Marketing Analytics Device Identifier Shelf Expiration Date Model / Serial / Lot Port Implant W/8f Poly Cath - [id number] Implanted:Qty : 1 on 02/12/2023 at [facility] Right: Chest CR BARD : PERIPHERAL VASCULAR [id number] 04/25/2024 [id number] / / [id number] documented as of this encounter Visit Diagnoses [...] Advance Directives occurred with: Patient Care Teams Internal Recruiter Relationship Specialty Start Date End Date Chema Combs MD [address] [place] [address] PCP - General Family Medicine 07/02/18 documented as of this encounter
--- OUTSIDE RECORDS SUMMARY | 2023-05-22 14:53 | External Medical Summary ---
Author Name Unknown Address Unknown Organization [id number]:[facility] [place] [id number] Laboratory Report Ordering Provider Test Date Status MARLON ORTEGA 03/20/2023 09:07:37 Final Observation Date Value Abnormality Reference (Units ) Status WBC, Total 03/20/2023 09:07:37 31.82 Above high normal 4 .00-10.80 (K/uL) Final RBC 03/20/2023 09:07:37 3.79 4.50-5.25 (M/uL) Final Hemoglobin 03/20/2023 09:07:37 11.9 Below low normal 14 .0-16.8 (g/dL) Final HCT 03/20/2023 09:07:37 36.0 Below low normal 40. 0-48.4 (%) Final MCV 03/20/2023 09:07:37 95.0 82.0-99.5 (fL) Final MCH 03/20/2023 09:07:37 31.4 27.0-34.0 (pg) Final MCHC 03/20/2023 09:07:37 33.1 32.0-36.0 (g/dL) Final RDW 03/20/2023 09:07:37 16.8 11.5-15.5 (%) Final Platelets 03/20/2023 09:07:37 228 140-400 (K /uL) Final MPV 03/20/2023 09:07:37 9.8 6.6-11.1 ( fL) Final Performing Location [facility] [address]
--- OUTSIDE RECORDS SUMMARY | 2023-05-22 14:53 | External Medical Summary ---
Author Name Unknown Address Unknown Organization K09:[facility] [place] [address] Laboratory Report Ordering Provider Test Date Status MARLON ORTEGA 03/20/2023 09:07:37 Final Observation Date Value Abnormality Reference (Units ) Status Magnesium 03/20/2023 09:07:37 1.5 1.5-2.6 (m g/dL) Final Performing Location [facility] [place] [address]
--- OUTSIDE RECORDS SUMMARY | 2023-05-22 14:54 | External Medical Summary ---
Author Name Unknown Address Unknown Organization K09:[facility] [place] [address] Laboratory Report Ordering Provider Test Date Status MARLON ORTEGA 03/06/2023 09:34:51 Final Observation Date Value Abnormality Reference (Units ) Status Magnesium 03/06/2023 09:34:51 1.5 1.5-2.6 (m g/dL) Final Performing Location [facility] [place] [address]
--- OUTSIDE RECORDS SUMMARY | 2023-05-22 14:54 | External Medical Summary | Summary of Care ---
Author Name Unknown Organization [facility] Address [address] [facility] [place] [address] Phone [phone] Care Team Providers Care Supervisor Pile Driving Name Role Phone Chema Combs MD Primary Care Provider Reason for Visit * Reason Comments IV Therapy Hydration Encounter Details Date Type Department Care Team Description 03/01/2023 Hem/Onc Treatment Hematology/Oncology [place], [place] [address] [place] [address] [place], Chair 4 Hem Onc Scenery [address] [place] [address] 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)*; Carcinoma of gallbladder (HCC) Allergies Active Allergy Reactions Severity Noted Date Comments Lisinopril Cough Low 08/18/2009 documented as of this encounter (statuses as of 03/01/2023) Medications Medication Sig Dispensed Refills Start Date [...] as of this encounter (statuses as of 03/01/2023) Active Problems Problem Noted Date Gall bladder [...] as of this encounter (statuses as of 03/01/2023) Resolved Problems Problem Noted Date Resolved Date [...] as of this encounter (statuses as of 03/01/2023) Immunizations Name Administration Dates Next Due COVID-19 [...] Sign Reading Time Taken Comments Blood Pressure 131/74 03/01/2023 9:03 AM EDT Pulse 70 03/01/2023 9:03 AM EDT Temperature 36.4 C (97.6 F) 03/01/2023 9:03 AM ED T Respiratory Rate 21 03/01/2023 9:03 AM EDT Oxygen Saturation - - Inhaled Oxygen Concentration - - Weight 102.8 kg (226 lb 9.6 oz) 03/01/2023 9:03 AM EDT Height - - Body Mass Index 30.73 01/10/2023 10:15 AM EDT documented in this [...] as of this encounter Nursing Notes * Maria T Wood RN - 03/01/2023 10:50 AM EDT Goals: Patient will remain free from injury. Possible barriers to meeting goals: risk for falls r/t ambulating with IV pole Stability of the patient: Moderately stable - low risk of patient condition declining or worsening Summary regarding today's goals: Met: pt remained free from falls * Maria T Wood RN - 03/01/2023 9:03 AM EDT Chair 12 Patient presents to the clinic today for C1D8 cisplatin/Gemzar. Patient was held last week for elevated creatinine. His creatinine today is 1.3. Dr Huddleston would like to hold treatment to next week andhave patient get 2 hours of hydration today. Reviewed with patient and he verbalizes understanding. CVAD accessed, positive blood return noted. NS for hydration started. Safety and Risk for Injury Patient will remain free from injury. Ensure appropriate safety devices are available. Provide and maintain safe environment. documented in this encounter Plan of Treatment Upcoming Encounters Date Type Specialty Care Team Description 03/06/2023 Laboratory Laboratory [place], Lab Scenery [address] [place] [address] 03/06/2023 Office Visit Hematology Oncology Scout Huddleston MD [address] [place] [address] 03/07/2023 Hem/Onc Treatment Hematology Oncology [place], Chair 5 Hem Onc Scenery [address] [facility] [address] 03/08/2023 Hem/Onc Treatment Hematology Oncology [place], Chair 7 Hem Onc Scenery [address] [place] [address] 03/12/2023 Office Visit Family Medicine Chema Combs MD [address] [place] [address] 03/14/2023 Telemedicine Nutrition Services Nery Church, RDN [address] [place] [address] 04/30/2023 Office Visit Family Medicine Chema Combs MD [address] [place] [address] 09/19/2023 Office Visit Cardiology Prashant Ruiz, DO [address] [place] [address] Scheduled Procedures Name Priority Associated Diagnoses Date/Ti [...] PAST YEAR FOR COPD 02/23/2024 02/22/2023 GFR 02/29/2024 02/28/2023, 01/26, 02/14/2023, Additional history exists Colonoscopy 07/06/2026 07/06/2016, 07/06/2016 [...] 08/29/2016 LUNG CANCER SCREENING - USE SMARTSET 02021 Completed 10/01/2017 Zoster Vaccines Completed 12/14/2019, 09/24, 02/16/2013 GARDASIL-HPV IMMUNIZATION SERIES Aged Out No longer eligible based on patient's age to complete this topic Hepatitis B Aged Out No longer eligi ble based on patient's age to complete this topic documented as of this encounter Medical Devices Implanted Type Area [employer] Counselor Device Identifier Shelf Expiration Date Model / Serial / Lot Port Implant W/8f Poly Cath - [id number] Implanted:Qty : 1 on 02/12/2023 at [facility] Right: Chest CR BARD : PERIPHERAL VASCULAR [id number] 04/25/2024 [id number] / / [id number] documented as of this encounter Visit Diagnoses Diagnosis 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)- Primary Chronic lymphoid leukemia, without mention of having achieved remission 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 Given 03/01/2023 10:47 AM EDT 500 Units sodium chloride 0.9 % flush central line 10 mL 10 mL, IV Push, PRN Other, IV Flush, Starting on Sat03/01/23 at 0917, Until 03/02/23 at 0916, For 24 hours, Do not flush if lock, PICC, or central line not in place; IV infusing or unable to flush. Given 03/01/2023 10:47 AM EDT 10 mL Inactive Administered Medications - up to 3 most recent administrations Medication Order MAR Action Action Date Dose Rate Site NSS infusion FOR HYDRATION Intravenous, at 500 mL/hr Administer over 2 Hours, ONCE, 1 dose, On Sat03/01/23 at 1030 Start Infusion 03/01/2023 8:45 AM EDT 1,000 mL 500 mL/hr documented in this encounter Advance Directives Latest Code Status on File Code Status Date Activated Date Inactivated Comments Full Code 12/27/2022 3:40 PM 01/01/2023 8:39 PM This or aj reflects the patients wishes and were consensually agreed upon. Question Answer Comments Discussion of Advance Directives occurred with: Patient Care Teams Supervisor Pile Driving Relationship Specialty Start Date End Date Chema Combs MD [address] [place], [place] [phone] PCP - General Family Medicine 07/02/18 documented as of this encounter
--- OUTSIDE RECORDS SUMMARY | 2023-05-22 14:54 | External Medical Summary ---
Author Name Unknown Address Unknown Organization K01:[facility] - [facility] [address] [place] [address] Laboratory Report Ordering Provider Test Date Status MARLON ORTEGA 02/28/2023 09:23:21 Final Observation Date Value Abnormality Reference (Units ) Status WBC, Total 02/28/2023 09:23:21 26.53 Above high normal 4.00-10.80 (K/uL) Final RBC 02/28/2023 09:23:21 3.85 4.50-5.25 (M/uL) Final Hemoglobin 02/28/2023 09:23:21 12.0 Below low normal 14.0-16.8 (g/dL) Final HCT 02/28/2023 09:23:21 36.2 Below low normal 40.0-48.4 (%) Final MCV 02/28/2023 09:23:21 94.0 82.0-99.5 (fL) Final MCH 02/28/2023 09:23:21 31.2 27.0-34.0 (pg) Final MCHC 02/28/2023 09:23:21 33.1 32.0-36.0 (g/dL) Final RDW 02/28/2023 09:23:21 14.0 11.5-15.5 (%) Final Platelets 02/28/2023 09:23:21 353 140-400 (K/uL) Final MPV 02/28/2023 09:23:21 9.8 6.6-11.1 (fL) Final Nucleated erythrocytes/100 leukocytes [Ratio] in Blood by Automated count 02/28/2023 09:23:21 0 <=0 (/100 WBCs) Final Performing Location [facility] - [address] [place] [id number]
--- OUTSIDE RECORDS SUMMARY | 2023-05-22 14:54 | External Medical Summary | Summary of Care ---
Author Name Unknown Organization [facility] Address [address] [facility] [address] Phone [phone] Care Team Providers Care Sort Supervisor Name Role Phone Chema Combs MD Primary Care Provider [phone] Encounter Details Date Type Department Care Team Description 02/22/2023 Orders Only Hematology/Oncology [facility] [place] [address] [facility] [place] [address] Scott Pickett MD 200 [place] [address] Allergies Active Allergy Reactions Severity Noted Date Comments Lisinopril Cough Low 08/18/2009 documented as of this encounter (statuses as of 03/05/2023) Medications Medication Sig Dispensed Refills Start Date [...] ons:HTN, goal below 150/90,PAF (paroxysmal atrial fibrillation) ([facility]) TAKE 1 TABLET BY MOUTH TWICE [...] External Cream (Emla)Indications:C arcinoma of gall bladder ([facility]) APPLY TO SKIN OVER MEDIPORT & [...] as of this encounter (statuses as of 03/05/2023) Active Problems Problem Noted Date Gall bladder [...] as of this encounter (statuses as of 03/05/2023) Resolved Problems Problem Noted Date Resolved Date [...] 06/16/2015 PVD (PERIPHERAL VASCULAR DISEASE) PERIPH SPRING MCKEON,UNSKaroline 02/06/2008 01/02/2012 Screening for prostate cancer 02/06/2008 Overview: Resolved per Screening Diagnosis Protocol #6 Tobacco use disorder 02/06/2008 01/02/2012 Osteoporosis 02/06/2008 06/16/2015 PAIN IN LIMB, LEFT DISTAL GREAT TOE 02/06/2008 06/16/2015 HTN, goal below 140/90 3 HTN, goal below 140/80 5 documented as of this encounter (statuses as of 03/05/2023) Immunizations Name Administration Dates Next Due COVID-19 [...] Laboratory Laboratory Chandrika, Lab Scenery [address] [place] [address] 03/06/2023 Office Visit Hematology Oncology Scout Huddleston MD [address] [place] [address] 03/07/2023 Hem/Onc Treatment Hematology Oncology [place], Chair 5 Hem Onc Scenery [address] [place] [address] 03/12/2023 Office Visit Family Medicine Chema Combs MD [address] [place] [address] 03/14/2023 Telemedicine Nutrition Services Nery Church, RDN [address] [place] [address] 04/30/2023 Office Visit Family Medicine Chema Combs MD [address] [place] [address] 09/19/2023 Office Visit Cardiology Prashant Ruiz, [address] [place] [address] Scheduled Procedures Name Priority Associated Diagnoses Date/Ti [...] 08/29/2016 LUNG CANCER SCREENING - USE SMARTSET 70213 Completed 10/01/2017 Zoster Vaccines Completed 12/14/2019, 09/24, 02/16/2013 GARDASIL-HPV IMMUNIZATION SERIES Aged Out No longer eligible based on patient's age to complete this topic Hepatitis B Aged Out No longer eligi ble based on patient's age to complete this topic documented as of this encounter Medical Devices Implanted Type Area Turkey Picker Device Identifier Shelf Expiration Date Model / Serial / Lot Port Implant W/8f Poly Cath - [id number] Implanted:Qty : 1 on 02/12/2023 at [facility] Right: Chest CR BARD : PERIPHERAL VASCULAR [id number] 04/25/2024 [id number] / / [id number] documented as of this encounter Advance Directives Latest Code Status on File Code Status Date Activated Date Inactivated Comments Full Code 12/27/2022 3:40 PM 01/01/2023 8:39 PM This or aj reflects the patients wishes and were consensually agreed upon. Question Answer Comments Discussion of Advance Directives occurred with: Patient Care Teams Sort Supervisor Relationship Specialty Start Date End Date Chema Combs MD [address] [place], [place] [phone] PCP - General Family Medicine 07/02/18 documented as of this encounter
--- OUTSIDE RECORDS SUMMARY | 2023-05-22 14:54 | External Medical Summary ---
Author Name Unknown Address Unknown Organization K01:[facility] - [address] [facility] [address] Laboratory Report Ordering Provider Test Date Status ORTEGAKAYMARLON 02/28/2023 09:23:21 Final Observation Date Value Abnormality Reference (Units ) Status SYNC LEUKOCYTES IN BLOOD BY AUTOMATED COUNT 02/28/2023 09:23:21 26.53 Above high normal 4.00-10.80 (K/uL) Final Neutrophils/100 leukocytes in Blood by Manual count 02/28/2023 09:23:21 36.0 Below low normal 40.0-75.0 (%) Final Lymphocytes/100 leukocytes in Blood by Manual count 02/28/2023 09:23:21 58.0 Above high normal 18.0-42.0 (%) Final Monocytes/100 leukocytes in Blood by Manual count 02/28/2023 09:23:21 4.0 1.0-11.0 (%) Final Eosinophils/100 leukocytes in Blood by Manual count 02/28/2023 09:23:21 1.0 0.0-6.0 (%) Final Basophils/100 leukocytes in Blood by Manual count 02/28/2023 09:23:21 1.0 0.0-2.0 (%) Final Neutrophils [#/volume] in Blood by Manual count 02/28/2023 09:23:21 9.55 Above high normal 1.80-7.70 (K/uL) Final Lymphocytes [#/volume] in Blood by Manual count 02/28/2023 09:23:21 15.39 Above high normal 1.00-4.80 (K/uL) Final Monocytes [#/volume] in Blood by Manual count 02/28/2023 09:23:21 1.06 0.00-1.10 (K/uL) Final Eosinophils [#/volume] in Blood by Manual count 02/28/2023 09:23:21 0.27 0.00-0.70 (K/uL) Final Basophils [#/volume] in Blood by Manual count 02/28/2023 09:23:21 0.27 Above high normal 0.00-0.20 (K/uL) Final Variant lymphocytes [Presence] in Blood by Light microscopy 02/28/2023 09:23:21 Present Abnormal None Seen Final Smudge cells [Presence] in Blood by Light microscopy 02/28/2023 09:23:21 Present Abnormal None Seen Final Performing Location [facility] - [address] [facility] [place] [address]
--- OUTSIDE RECORDS SUMMARY | 2023-05-22 14:54 | External Medical Summary | Summary of Care ---
Author Name Unknown Organization [facility] Address [address] [facility] [address] Phone [phone] Care Team Providers Care Jet Ski Mechanic Name Role Phone Chema Combs MD Primary Care Provider [phone] Encounter Details Date Type Department Care Team Description 02/12/2023 Orders Only Hematology/Oncology [facility] Commodore 200 [facility] [place] [address] Scout Huddleston MD 200 [facility] [address] 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)* Allergies Active Allergy Reactions Severity Noted Date Comments Lisinopril Cough Low 08/18/2009 documented as of this encounter (statuses as of 02/26/2023) Medications Medication Sig Dispensed Refills Start Date [...] TO ACCESSING. 30 g 1 01/24/2023 Active documented as of this encounter (statuses as of 02/26/2023) Active Problems Problem Noted Date Gall bladder [...] as of this encounter (statuses as of 02/26/2023) Resolved Problems Problem Noted Date Resolved Date [...] 02/06/2008 06/16/2015 PVD (PERIPHERAL VASCULAR DISEASE) [facility] 02/06/2008 01/02/2012 Screening for prostate cancer 02/06/2008 Overview: Resolved per Screening Diagnosis Protocol #6 Tobacco use disorder 02/06/2008 01/02/2012 Osteoporosis 02/06/2008 06/16/2015 PAIN IN LIMB, LEFT DISTAL GREAT TOE 02/06/2008 06/16/2015 HTN, goal below 140/90 3 HTN, goal below 140/80 5 documented as of this encounter (statuses as of 02/26/2023) Immunizations Name Administration Dates Next Due COVID-19 [...] Encounters Date Type Specialty Care Team Description 02/28/2023 Laboratory Laboratory [place], Lab Lock [address] [place] [address] 03/01/2023 Hem/Onc Treatment Hematology Oncology [place], Chair 4 Hem Onc Scenery [address] [place] [address] 03/06/2023 Laboratory Laboratory [place], Lab Scenery [address] [place] [address] 03/06/2023 Office Visit Hematology Oncology Scout Huddleston MD [address] [place] [address] 03/07/2023 Hem/Onc Treatment Hematology Oncology [place], Chair 5 Hem Onc Scenery [address] [place] [address] 03/08/2023 Hem/Onc Treatment Hematology Oncology [place], Chair 7 Hem Onc Scenery [address] [place] [address] 03/12/2023 Office Visit Family Chema Moran MD [address] [place] [address] 03/14/2023 Telemedicine Nutrition Services Nery Church, CAYDENN [address] [place] [address] 04/30/2023 Office Visit Family Chema Moran MD [address] [place] [address] 09/19/2023 Office Visit Cardiology Prashant Ruiz, DO [address] [place] [address] Scheduled Orders Name Type Priority Associated Diagnoses Orde r Schedule MAGNESIUM Lab STAT 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) Every Week for 12 Occurrences starting 02/12/2023 until 02/13/2024, 2 completed Scheduled Procedures Name Priority Associated Diagnoses Date/Ti [...] 12/11/2022, 06/28, 07/06/2021, Additional history exists GFR 02/22/2024 02/21/2023, 01/26, 01/24/2023, Additional history exists O2 ASSESSMENT COMPLETED IN PAST YEAR FOR COPD 02/23/2024 02/22/2023 Colonoscopy 07/06/2026 07/06/2016, 07/06/2016 Colorectal Cancer Screening [...] 08/29/2016 LUNG CANCER SCREENING - USE SMARTSET [id number] Completed 10/01/2017 Zoster Vaccines Completed 12/14/2019, 09/24, 02/16/2013 GARDASIL-HPV IMMUNIZATION SERIES Aged Out No longer eligible based on patient's age to complete this topic Hepatitis B Aged Out No longer eligi ble based on patient's age to complete this topic documented as of this encounter Medical Devices Implanted Type Area Intelligence Officer Basic Device Identifier Shelf Expiration Date Model / Serial / Lot Port Implant W/8f Poly Cath - [id number] Implanted:Qty : 1 on 02/12/2023 at [facility] Right: Chest CR BARD : PERIPHERAL VASCULAR [id number] 04/25/2024 [id number] / / [id number] documented as of this encounter Results * MAGNESIUM (02/21/2023 9:50 AM EDT) Magnesium 1.9 1.5 - 2.6 mg/dL 02/21/2023 9:20 PM EDT [facility] Blood Venous blood specimen / Unknown Venipuncture / Unknown 02/21/2023 9:50 AM EDT 02/21/2023 9:50 AM EDT Scout Huddleston MD LAB BLOOD ORDERA BLES LABORATORY [facility] [address] [place] [address] * MAGNESIUM (02/14/2023 9:25 AM EDT) Magnesium 2.0 1.5 - 2.6 mg/dL 02/14/2023 6:16 PM EDT LABORATORY C Blood Venous blood specimen / Unknown Venipuncture / Unknown 02/14/2023 9:25 AM EDT 02/14/2023 9:25 AM EDT Scout Huddleston MD LAB BLOOD ORDERA BLES LABORATORY [facility] [address] [place] [address] documented in this encounter Visit Diagnoses Diagnosis Chronic lymphocytic [...] Advance Directives occurred with: Patient Care Teams Jet Ski Mechanic Relationship Specialty Start Date End Date Chema Combs MD [address] [place] [address] PCP - General Family Medicine 07/02/18 documented as of this encounter
--- OUTSIDE RECORDS SUMMARY | 2023-05-22 14:54 | External Medical Summary | Summary of Care ---
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) Allergies Active Allergy Reactions Severity Noted Date Comments Lisinopril Cough Low 08/18/2009 documented as of this encounter (statuses as of 02/28/2023) Medications Medication Sig Dispensed Refills Start Date [...] as of this encounter (statuses as of 02/28/2023) Active Problems Problem Noted Date Gall bladder [...] as of this encounter (statuses as of 02/28/2023) Resolved Problems Problem Noted Date Resolved Date [...] 02/06/2008 06/16/2015 PVD (PERIPHERAL VASCULAR DISEASE) [facility] 02/06/2008 01/02/2012 Screening for prostate cancer 02/06/2008 Overview: Resolved per Screening Diagnosis Protocol #6 Tobacco use disorder 02/06/2008 01/02/2012 Osteoporosis 02/06/2008 06/16/2015 PAIN IN LIMB, LEFT DISTAL GREAT TOE 02/06/2008 06/16/2015 HTN, goal below 140/90 3 HTN, goal below 140/80 5 documented as of this encounter (statuses as of 02/28/2023) Immunizations Name Administration Dates Next Due COVID-19 [...] Encounters Date Type Specialty Care Team Description 03/01/2023 Hem/Onc Treatment Hematology Oncology [place], Chair 4 Hem Onc Scenery [address] [place] [address] 03/06/2023 Laboratory Laboratory [place], Lab Scenery [address] [place] [address] 03/06/2023 Office Visit Hematology Oncology Scout Huddleston MD [address] [place] [address] 03/07/2023 Hem/Onc Treatment Hematology Oncology [place], Chair 5 Hem Onc Scenery [address] [place] [address] 03/08/2023 Hem/Onc Treatment Hematology Oncology [place], Chair 7 Hem Onc Scenery [address] [place] [address] 03/12/2023 Office Visit Family Medicine Chema Combs MD [address] [place] [address] 03/14/2023 Telemedicine Nutrition Services Nery Church, RDN [address] [place] [address] 04/30/2023 Office Visit Family Chema Moran MD [address] [place] [address] 09/19/2023 Office Visit Cardiology Prashant Ruiz, DO [address] [place] [address] Pending Results Name Type Priority Associated Diagnoses Date /Time CBC WITH WBC DIFFERENTIAL Lab STAT Gall bladder disease 02/28/2023 9:23 AM EDT COMPREHENSIVE METABOLIC PANEL Lab STAT Gall bladder disease 02/28/2023 9:23 AM EDT TSH WITH FREE T4 IF INDICATED Lab STAT Gall bladder disease 02/28/2023 9:23 AM EDT MAGNESIUM Lab STAT 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) 02/28/2023 9:23 AM EDT CBC Lab STAT Gall bladder disease 02/28/2023 9:23 AM EDT DIFFERENTIAL, AUTOMATED Lab STAT Gall bladder disease 02/28/2023 9:23 AM EDT Scheduled Procedures Name Priority Associated [...] 08/29/2016 LUNG CANCER SCREENING - USE SMARTSET 25585 Completed 10/01/2017 Zoster Vaccines Completed 12/14/2019, 09/24, 02/16/2013 GARDASIL-HPV IMMUNIZATION SERIES Aged Out No longer eligible based on patient's age to complete this topic Hepatitis B Aged Out No longer eligi ble based on patient's age to complete this topic documented as of this encounter Medical Devices Implanted Type Area Senior Accounts Payable Clerk Device Identifier Shelf Expiration Date Model / Serial / Lot Port Implant W/8f Poly Cath - [id number] Implanted:Qty : 1 on 02/12/2023 at [facility] Right: Chest CR BARD : PERIPHERAL VASCULAR [id number] 04/25/2024 [id number] / / [id number] documented as of this encounter Visit Diagnoses [...] Advance Directives occurred with: Patient Care Teams Insole Doubler Relationship Specialty Start Date End Date Chema Combs MD [address], [place] [id number] PCP - General Family Medicine 07/02/18 documented as of this encounter
--- OUTSIDE RECORDS SUMMARY | 2023-05-22 14:54 | External Medical Summary ---
Author Name Unknown Address Unknown Organization [id number]:LABORATORY [facility] - [address] [place] [address] Laboratory Report Ordering Provider Test Date Status MARLON ORTEGA 03/06/2023 09:34:51 Final Observation Date Value Abnormality Reference (Units ) Status TSH 03/06/2023 09:34:51 2.62 0.27-4.20 (uIU/mL) Final Performing Location LABORATORY [facility] - [address] [place] [address]
--- OUTSIDE RECORDS SUMMARY | 2023-05-22 14:54 | External Medical Summary ---
Author Name Unknown Address Unknown Organization [id number]:LABORATORY [facility] - [address] [place] [address] Laboratory Report Ordering Provider Test Date Status MARLON ORTEGA 02/28/2023 09:23:21 Final Observation Date Value Abnormality Reference (Units ) Status Magnesium 02/28/2023 09:23:21 1.8 1.5-2.6 (m g/dL) Final Performing Location [facility] - [address] [place] [address]
--- OUTSIDE RECORDS SUMMARY | 2023-05-22 14:54 | External Medical Summary ---
Author Name Unknown Address Unknown Organization [id number]:LABORATORY [place] - [address] [place] [address] Laboratory Report Ordering Provider Test Date Status MARLON ORTEGA 02/28/2023 09:23:21 Final Observation Date Value Abnormality Reference (Units ) Status TSH 02/28/2023 09:23:21 2.53 0.27-4.20 (uIU/mL) Final Performing Location LABORATORY [place] - [address] [place] [address]
--- OUTSIDE RECORDS SUMMARY | 2023-05-22 14:54 | External Medical Summary | Summary of Care ---
Author Name Unknown Organization [facility] Address [address] [facility] [address] Phone [phone] Care Team Providers Care Elevator Examiner Name Role Phone Chema Combs MD Primary Care Provider [phone] Reason for Visit * Reason Comments Outpatient Testing Encounter Details Date Type Department Care Team Description 03/06/2023 Laboratory Laboratory [facility] [place] [address] [place] [address] [facility] Lab [facility] [address] [place] [address] Gall bladder disease; Chronic lymphocytic leukemia of [...] 06/16/2015 PVD (PERIPHERAL VASCULAR DISEASE) PERIPH [place] MCKE[place],UNS 02/06/2008 01/02/2012 Screening for prostate cancer [...] Date Type Specialty Care Team Description 03/06/2023 Office Visit Hematology Oncology Scout Huddleston MD [address] [place] [address] Outpatient Consult Note 03/07/2023 Hem/Onc Treatment Hematology Oncology [place], Chair 5 Hem Onc Scenery [address] [place] [address] 03/12/2023 Office Visit Family Medicine Chema Combs MD [address] [place] [address] 03/14/2023 Telemedicine Nutrition Services Nery Church, RDN [address] [place] [address] 04/30/2023 Office Visit Family Medicine Chema Combs MD [address] [place] [address] 09/19/2023 Office Visit Cardiology Prashant Ruiz, DO [address] [place] [address] Pending Results Name Type Priority Associated Diagnoses Date /Time CBC WITH WBC DIFFERENTIAL Lab STAT Gall bladder disease 03/06/2023 9:34 AM EDT COMPREHENSIVE METABOLIC PANEL Lab STAT Gall bladder disease 03/06/2023 9:34 AM EDT TSH WITH FREE T4 IF INDICATED Lab STAT Gall bladder disease 03/06/2023 9:34 AM EDT MAGNESIUM Lab STAT 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) 03/06/2023 9:34 AM EDT CBC Lab STAT Gall bladder disease 03/06/2023 9:34 AM EDT DIFFERENTIAL, AUTOMATED Lab STAT Gall bladder disease 03/06/2023 9:34 AM EDT Scheduled Procedures Name Priority Associated [...] 08/29/2016 LUNG CANCER SCREENING - USE SMARTSET [id number] Completed 10/01/2017 Zoster Vaccines Completed 12/14/2019, 09/24, 02/16/2013 GARDASIL-HPV IMMUNIZATION SERIES Aged Out No longer eligible based on patient's age to complete this topic Hepatitis B Aged Out No longer eligi ble based on patient's age to complete this topic documented as of this encounter Medical Devices Implanted Type Area Ore Miner Blasting Device Identifier Shelf Expiration Date Model / Serial / Lot Port Implant W/8f Poly Cath - [id number] Implanted:Qty : 1 on 02/12/2023 at [facility] Right: Chest CR BARD : PERIPHERAL VASCULAR [id number] 04/25/2024 [id number] / / [id number] documented as of this encounter Visit Diagnoses [...] Advance Directives occurred with: Patient Care Teams Elevator Examiner Relationship Specialty Start Date End Date Chema Combs MD [address] [place] [address] PCP - General Family Medicine 07/02/18 documented as of this encounter
--- OUTSIDE RECORDS SUMMARY | 2023-05-22 14:54 | External Medical Summary ---
Author Name Unknown Address Unknown Organization K09:LAB[facility]ATORY [place] [address] Laboratory Report Ordering Provider Test Date Status MARLON ORTEGA 03/06/2023 09:34:51 Final Observation Date Value Abnormality Reference (Units ) Status WBC, Total 03/06/2023 09:34:51 21.64 Above high normal 4 .00-10.80 (K/uL) Final RBC 03/06/2023 09:34:51 3.75 4.50-5.25 (M/uL) Final Hemoglobin 03/06/2023 09:34:51 11.6 Below low normal 14 .0-16.8 (g/dL) Final HCT 03/06/2023 09:34:51 35.0 Below low normal 40. 0-48.4 (%) Final MCV 03/06/2023 09:34:51 93.3 82.0-99.5 (fL) Final MCH 03/06/2023 09:34:51 30.9 27.0-34.0 (pg) Final MCHC 03/06/2023 09:34:51 33.1 32.0-36.0 (g/dL) Final RDW 03/06/2023 09:34:51 15.4 11.5-15.5 (%) Final Platelets 03/06/2023 09:34:51 543 Above high normal 14 0-400 (K/uL) Final MPV 03/06/2023 09:34:51 9.1 6.6-11.1 ( fL) Final Performing Location [facility] [place] [address]
--- OUTSIDE RECORDS SUMMARY | 2023-05-22 14:54 | External Medical Summary | Summary of Care ---
Author Name Unknown Organization [facility] Address [address] [place] [address] Phone [phone] Care Team Providers Care Healthcare Administration Intern Name Role Phone Chema Combs MD Primary Care Provider [phone] Encounter Details Date Type Department Care Team Description 03/01/2023 Orders Only Hematology/Oncology, [facility] [address] [place] [address] Scout Huddleston MD [address] [place], [place] [id number] Allergies Active Allergy Reactions Severity Noted Date [...] ons:HTN, goal below 150/90,PAF (paroxysmal atrial fibrillation) ([facility]) TAKE 1 TABLET BY MOUTH [...] External Cream (Emla)Indications:C arcinoma of gall bladder ([facility]) APPLY TO SKIN OVER MEDIPORT [...] shopping? (15 years old or older) No 08/03/20 23 Cognitive Status Response Date of Assessm ent Because of a physical, menta l, or emotional condition, do you have serious difficulty concentrating, remembering, or making decisions? (5 years old or older No 12/27/2022 documented as of this encounter Plan of Treatment Upcoming Encounters Date Type Specialty Care Team Description 03/06/2023 Laboratory Laboratory [place], Lab Scenery [address] [place] [address] 03/06/2023 Office Visit Hematology Oncology Scout Huddleston MD [address] [place] [address] 03/07/2023 Hem/Onc Treatment Hematology Oncology [place], Chair 5 Hem Onc Scenery [address] [place] [address] 03/08/2023 Hem/Onc Treatment Hematology Oncology [place], Chair 7 Hem Onc Scenery [address] [facility] [address] 03/12/2023 Office Visit Family Medicine Chema Combs MD [address] [place] [address] 03/14/2023 Telemedicine Nutrition Services Nery Church, RDN [address] [place] [address] 04/30/2023 Office Visit Family Medicine Chema Combs MD [address] [place] [address] 09/19/2023 Office Visit Cardiology Prashant Ruiz, [address] [place] [address] Scheduled Procedures Name Priority Associated Diagnoses Date/Ti [...] 08/29/2016 LUNG CANCER SCREENING - USE SMARTSET 55301 Completed 10/01/2017 Zoster Vaccines Completed 12/14/2019, 09/24, 02/16/2013 GARDASIL-HPV IMMUNIZATION SERIES Aged Out No longer eligible based on patient's age to complete this topic Hepatitis B Aged Out No longer eligi ble based on patient's age to complete this topic documented as of this encounter Medical Devices Implanted Type Area Java Application Engineer Device Identifier Shelf Expiration Date Model / Serial / Lot Port Implant W/8f Poly Cath - [id number] Implanted:Qty : 1 on 02/12/2023 at [facility] Right: Chest CR BARD : PERIPHERAL VASCULAR [id number] 04/25/2024 [id number] / / [id number] documented as of this encounter Advance Directives Latest Code Status on File Code Status Date Activated Date Inactivated Comments Full Code 12/27/2022 3:40 PM 01/01/2023 8:39 PM This or aj reflects the patients wishes and were consensually agreed upon. Question Answer Comments Discussion of Advance Directives occurred with: Patient Care Teams Healthcare Administration Intern Relationship Specialty Start Date End Date Chema Combs MD [address] [place] [address] PCP - General Family Medicine 07/02/18 documented as of this encounter
--- OUTSIDE RECORDS SUMMARY | 2023-05-22 14:54 | External Medical Summary ---
Author Name Unknown Address Unknown Organization K09:[facility]ATORY [facility] [address] [place] [address] Laboratory Report Ordering Provider Test Date Status MARLON ORTEGA 03/06/2023 09:34:51 Final Observation Date Value Abnormality Reference (Units ) Status BUN 03/06/2023 09:34:51 16 6-20 (mg/dL) Final Creatinine 03/06/2023 09:34:51 1.1 0.6-1.2 (mg/dL) Final Glomerular filtration rate/1.73 sq M.predicted [Volume Rate/Area] in Serum, Plasma or Blood by Creatinine-based formula (CKD-EPI) 03/06/2023 09:34:51 70 >=60 (mL/min) Final eGFR is calculated based on the CKD-EPI 2020 equation SODIUM 03/06/2023 09:34:51 138 135-146 (m mol/L) Final Potassium 03/06/2023 09:34:51 3.7 3.5-5.1 (m mol/L) Final Cl 03/06/2023 09:34:51 101 98-107 (mm ol/L) Final CO2 03/06/2023 09:34:51 27 22-32 (mmo l/L) Final Anion gap 03/06/2023 09:34:51 10 7-15 (mmol /L) Final Glucose 03/06/2023 09:34:51 174 Above high normal 70 -120 (mg/dL) Final Albumin 03/06/2023 09:34:51 3.9 3.8-5.0 (g /dL) Final AST (Aspartate aminotransferase) 03/06/2023 09:34:51 32 10-50 (U/L) Fin al Alk Phos 03/06/2023 09:34:51 191 Above high normal 35 -130 (U/L) Final Bilirubin, Total 03/06/2023 09:34:51 0.4 <=1 .2 (mg/dL) Final Calcium 03/06/2023 09:34:51 9.4 8.4-10.2 ( mg/dL) Final Protein 03/06/2023 09:34:51 6.6 6.0-8.3 (g /dL) Final ALT (Alanine aminotransferase) 03/06/2023 09:34:51 20 10-50 (U/L) Donell matthew Performing Location [facility] [address] [place] [address]
--- OUTSIDE RECORDS SUMMARY | 2023-05-22 14:54 | External Medical Summary | Summary of Care ---
Author Name Unknown Organization [facility] Address [address] [place] [address] Phone [phone] Care Team Providers Care Pen Rider Name Role Phone Chema Combs MD Primary Care Provider [phone] Encounter Details Date Type Department Care Team Description 03/01/2023 Orders Only Hematology/Oncology, [facility] [address] [place] [address] cSout Huddleston MD [address] [place], [place] [phone] Allergies Active Allergy Reactions Severity Noted Date [...] goal below 150/90,PAF (paroxysmal atrial fibrillation) ([facility]) TAKE 1 TABLET BY MOUTH TWICE A [...] Cream (Emla)Indications:C arcinoma of gall bladder ([facility]) APPLY TO SKIN OVER MEDIPORT & COVER [...] Specialty Care Team Description 03/06/2023 Laboratory Laboratory [place], Lab Scenery [address] [place] [address] 03/06/2023 Office Visit Hematology Oncology Scout Huddleston MD [address] [place] [address] 03/07/2023 Hem/Onc Treatment Hematology Oncology [place], Chair 5 Hem Onc Scenery [address] [place] [address] 03/08/2023 Hem/Onc Treatment Hematology Oncology [place], Chair 7 Hem Onc Scenery [address] [facility] [address] 03/12/2023 Office Visit Family Medicine Chema Combs MD [address] [place] [address] 03/14/2023 Telemedicine Nutrition Services Nery Church, RDN [address] [place] [address] 04/30/2023 Office Visit Family Medicine Chema Combs MD [address] [place] [address] 09/19/2023 Office Visit Cardiology Prashant Ruiz, [address] [place] [address] Scheduled Procedures Name Priority Associated Diagnoses Date/Ti [...] 08/29/2016 LUNG CANCER SCREENING - USE SMARTSET 11860 Completed 10/01/2017 Zoster Vaccines Completed 12/14/2019, 09/24, 02/16/2013 GARDASIL-HPV IMMUNIZATION SERIES Aged Out No longer eligible based on patient's age to complete this topic Hepatitis B Aged Out No longer eligi ble based on patient's age to complete this topic documented as of this encounter Medical Devices Implanted Type Area Manager Application Development Device Identifier Shelf Expiration Date Model / Serial / Lot Port Implant W/8f Poly Cath - [id number] Implanted:Qty : 1 on 02/12/2023 at [facility] Right: Chest CR BARD : PERIPHERAL VASCULAR [id number] 04/25/2024 [id number] / / [id number] documented as of this encounter Advance Directives Latest Code Status on File Code Status Date Activated Date Inactivated Comments Full Code 12/27/2022 3:40 PM 01/01/2023 8:39 PM This or aj reflects the patients wishes and were consensually agreed upon. Question Answer Comments Discussion of Advance Directives occurred with: Patient Care Teams Pen Rider Relationship Specialty Start Date End Date Chema Combs MD [address] [place] [address] PCP - General Family Medicine 07/02/18 documented as of this encounter
--- OUTSIDE RECORDS SUMMARY | 2023-05-22 14:54 | External Medical Summary ---
Author Name Unknown Address Unknown Organization [id number]:[facility] [address] [place] [address] Laboratory Report Ordering Provider Test Date Status MARLON ORTEGA 03/06/2023 09:34:51 Final Observation Date Value Abnormality Reference (Units ) Status SYNC LEUKOCYTES IN BLOOD BY AUTOMATED COUNT 03/06/2023 09:34:51 21.64 Above high normal 4.00-10.80 (K/uL) Final Neutrophils/100 leukocytes in Blood by Manual count 03/06/2023 09:34:51 24.0 Below low normal 40.0-75.0 (%) Final Lymphocytes/100 leukocytes in Blood by Manual count 03/06/2023 09:34:51 68.0 Above high normal 18.0-42.0 (%) Final Monocytes/100 leukocytes in Blood by Manual count 03/06/2023 09:34:51 5.0 1.0-11.0 (%) Final Eosinophils/100 leukocytes in Blood by Manual count 03/06/2023 09:34:51 1.0 0.0-6.0 (%) Final Metamyelocytes/100 leukocytes in Blood by Manual count 03/06/2023 09:34:51 2.0 Above high normal <=0.0 (%) Final Neutrophils [#/volume] in Blood by Manual count 03/06/2023 09:34:51 5.19 1.80-7.70 (K/uL) Final Lymphocytes [#/volume] in Blood by Manual count 03/06/2023 09:34:51 14.72 Above high normal 1.00-4.80 (K/uL) Final Monocytes [#/volume] in Blood by Manual count 03/06/2023 09:34:51 1.08 0.00-1.10 (K/uL) Final Eosinophils [#/volume] in Blood by Manual count 03/06/2023 09:34:51 0.22 0.00-0.70 (K/uL) Final Metamyelocytes [#/volume] in Blood by Manual count 03/06/2023 09:34:51 0.43 Above high normal <=0.00 (K/uL) Final Nucleated erythrocytes/100 leukocytes [Ratio] in Blood by Automated count 03/06/2023 09:34:51 Final Variant lymphocytes [Presence] in Blood by Light microscopy 03/06/2023 09:34:51 Present Abnormal None Seen Final Smudge cells [Presence] in Blood by Light microscopy 03/06/2023 09:34:51 Present Abnormal None Seen Final Performing Location [facility] [address] [place] [address]
--- OUTSIDE RECORDS SUMMARY | 2023-05-22 14:54 | External Medical Summary ---
Author Name Unknown Address Unknown Organization [id number]:[facility] [place] - [address] [place] [address] Laboratory Report Ordering Provider Test Date Status MARLON ORTEGA 02/28/2023 09:23:21 Final Observation Date Value Abnormality Reference (Units ) Status BUN 02/28/2023 09:23:21 19 6-20 (mg/dL) Final Creatinine 02/28/2023 09:23:21 1.3 Above high normal 0.6-1.2 (mg/dL) Final Glomerular filtration rate/1.73 sq M.predicted [Volume Rate/Area] in Serum, Plasma or Blood by Creatinine-based formula (CKD-EPI) 02/28/2023 09:23:21 59 Below low normal >=60 (mL/min) Final eGFR is calculated based on the CKD-EPI 2020 equation SODIUM 02/28/2023 09:23:21 139 135-146 (m mol/L) Final Potassium 02/28/2023 09:23:21 4.1 3.5-5.1 (m mol/L) Final Cl 02/28/2023 09:23:21 99 98-107 (mm ol/L) Final CO2 02/28/2023 09:23:21 28 22-32 (mmo l/L) Final Anion gap 02/28/2023 09:23:21 12 7-15 (mmol /L) Final Glucose 02/28/2023 09:23:21 124 Above high normal 70 -120 (mg/dL) Final Albumin 02/28/2023 09:23:21 4.1 3.8-5.0 (g /dL) Final AST (Aspartate aminotransferase) 02/28/2023 09:23:21 29 10-50 (U/L) Fin al Alk Phos 02/28/2023 09:23:21 239 Above high normal 35 -130 (U/L) Final Bilirubin, Total 02/28/2023 09:23:21 0.7 <=1 .2 (mg/dL) Final Calcium 02/28/2023 09:23:21 9.3 8.4-10.2 ( mg/dL) Final Protein 02/28/2023 09:23:21 5.9 Below low normal 6.0 -8.3 (g/dL) Final ALT (Alanine aminotransferase) 02/28/2023 09:23:21 23 10-50 (U/L) Donell matthew Performing Location [facility] - [address] [facility] [address]
--- OUTSIDE RECORDS SUMMARY | 2023-05-22 14:55 | External Medical Summary | Summary of Care ---
Author Name Unknown Organization [facility] Address [address] [facility] [address] Phone [phone] Care Team Providers Care [employer] Assembler Name Role Phone Chema Combs MD Primary Care Provider [phone] Reason for Visit * Reason Comments Chemotherapy Imfinzi/Gemzar/Cispl atin D1C1 * Episode Based Medications (Routine) - Authorized Specialty Diagnoses / Procedures Referred By Contac t Referred To Contact Diagnoses Encounter for antineoplastic chemotherapy Gall bladder disease Carcinoma of gallbladder (HCC) Procedures [place] CISPLATIN 10 MG INJECTION [place] FOSAPREPITANT INJECTION [place] IN GEMCITABINE HCL NOS 200MG [place] INJ., DURVALUMAB, 10 MG Scout Huddleston MD [address] [place] [address] Anc Hem/Onc Scenery [place] [address] [place] [address] Referral ID Status Reason Start Date Expiration Date V isits Requested Visits Authorized [id number] Authorized 01/17/2023 01/18/[phone] Encounter Details Date Type Department Care Team Description 02/15/2023 Hem/Onc Treatment Hematology/Oncology Treatment, [place] [address] [place] [address] Chandrika, Chair 4 Hem Onc Scenery [address] [place] [address] 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 0 04/12/2021 Active metFORMIN HCl ER 500 MG Oral Tablet Extended Release 24 Hour (Glucophage XR)Indications:Pred iabetes Take by mouth 1 Tablet in the morning. 90 Tablet 3 01/17/2022 Active Atorvastatin Calcium 20 MG Oral Tablet (Lipitor)Indication s:Dyslipidemia, goal LDL below 100 Take by mouth 1 Tablet in the morning. 90 Tablet 3 01/17/2022 Active dilTIAZem HCl ER Coated Beads 120 MG Oral Capsule Extended Release 24 Hour (Cardizem CD)Indications:HTN, goal below 150/90,PAF (paroxysmal atrial fibrillation) ([facility]) TAKE 1 CAPSULE BY MOUTH EVERY DAY [...] as of this encounter (statuses as of 02/15/2023) Active Problems Problem Noted Date Gall bladder [...] as of this encounter (statuses as of 02/15/2023) Resolved Problems Problem Noted Date Resolved Date [...] ONYCHOLYSIS 02/06/2008 06/16/2015 PVD (PERIPHERAL VASCULAR DISEASE) PERIP SPRING MCKEON,UNSP 02/06/2008 01/02/2012 Screening for prostate cancer 02/06/2008 Overview: Resolved per Screening Diagnosis Protocol #6 Tobacco use disorder 02/06/2008 01/02/2012 Osteoporosis 02/06/2008 06/16/2015 PAIN IN LIMB, LEFT DISTAL GREAT TOE 02/06/2008 06/16/2015 HTN, goal below 140/90 3 HTN, goal below 140/80 5 documented as of this encounter (statuses as of 02/15/2023) Immunizations Name Administration Dates Next Due COVID-19 [...] Sign Reading Time Taken Comments Blood Pressure 132/84 02/15/2023 9:21 AM EDT Pulse 79 02/15/2023 9:21 AM EDT Temperature 36.4 C (97.6 F) 02/15/2023 9:21 AM ED T Respiratory Rate 20 02/15/2023 9:21 AM EDT Oxygen Saturation 96% 02/15/2023 9:21 AM EDT Inhaled Oxygen Concentration - - Weight 107.2 kg (236 lb 6.4 oz) 02/15/2023 9:21 AM EDT Height - - Body Mass Index 32.06 01/10/2023 10:15 AM EDT documented in this [...] Nursing Notes * Anh Alfonso RN - 02/15/2023 3:51 PM EDT Functional status at today's visit: [...] ml (100 units/ml). Luong needle removed intact. Reviewed use of antiemetics for home use; pt and spouse verbalized understanding. Reinforced importance of increasing fluid intake and monitoring for constipation with Zofran use. Goals: Pt will remain free from injury. Possible barriers to meeting goals: risk of reaction, ambulation with IV pole Stability of the patient: Moderately stable - low risk of patient condition declining or worsening Summary regarding today's goals: Met: Pt remained free from injury during treatment today. Discharged in stable condition. JF assisted. * Anh Alfonso RN - 02/15/2023 9:23 AM EDT Chair 3 Chemo agents Imfinzi/Gemzar/Cisplatin D1C1 Appetite somewhat diminished- pt states he has to "be careful" with what he eats Nausea/Vomiting no Diarrhea no Constipation no Mucositis no Fatigue yes Bleeding no Infection no Rash no Numbness tingling no Pain no Radiation n/a ABN Labs Alk phos and WBC's elevated; Dr. Huddleston is aware and okay to proceed with treatment as ordered. Alt in Tx: no Return in 1 week VAD accessed yielding positive blood return. Resolving ecchymosis and mild edema noted. Incision ishealing WNL. NSS infusing. Safety and Risk for Injury Patient will remain free from injury. Ensure appropriate safety devices are available. Provide and maintain safe environment. documented in this encounter Plan of Treatment Upcoming Encounters Date Type Specialty Care Team Description 02/21/2023 Laboratory [facility] [place], [address] [place] [address] 02/22/2023 Hem/Onc Treatment Hematology Oncology [place], Chair 7 Hem Onc Scenery [address] [facility] [address] 02/28/2023 Telemedicine Nutrition Services Lynnette Neryyanira Paul, RDN [address] [place] [address] 03/06/2023 Laboratory Laboratory [place] Lab Scenery [address] [place] [address] 03/06/2023 Office Visit Hematology Oncology Scout Huddleston MD [address] [place] [address] 03/08/2023 Hem/Onc Treatment Hematology Oncology [place], Chair 7 Hem Onc Scenery [address] [facility] [address] 03/12/2023 Office Visit Family Medicine Chema Combs MD [address] [place] [address] 04/30/2023 Office Visit Family Medicine Chema Combs MD [address] [place] [address] 09/19/2023 Office Visit Cardiology Prashant Ruiz, DO [address] [place] [address] Scheduled Orders Name Type Priority Associated Diagnoses Orde r Schedule TSH WITH FREE T4 IF INDICATED Lab STAT Encounter for antineoplastic chemotherapy Gall bladder disease Carcinoma of gallbladder (HCC) Expected: 02/15/2023 (Approximate), Expires: 08/14/2023 GLUCOSE Lab STAT Encounter for antineoplastic chemotherapy Gall bladder disease Carcinoma of gallbladder (HCC) Expected: 02/15/2023 (Approximate), Expires: 08/14/2023 Scheduled Procedures Name Priority Associated Diagnoses Date/Ti me COLONOSCOPY FLEXIBLE PROXIMA L DIAGNOSTIC Recall Encounter for screening colonoscopy Health Maintenance Due Date Last Done Comments Alpha-1 Antitrypsin 1968 Hepatitis C Screening 1968 Cologuard 1995 Fecal Occult Blood Test 1995 Sigmoidoscopy 1995 Albumin/Creatinine Ratio 06/19/2019 017, 12/13/2014, 03/17/2014, Additional history exists Depression Screening 04/14/2021 04/14/2020, 11/11/19 15 COVID-19 Vaccine (4 - Moderna series) 08/02/2021 06/07/2021, 08/01/2020, 06/30/2020 Influenza Vaccine (FLU shot) (#1) 2023 04/06/2022, 02/24/2021, 04/13/2020, Additional history exists B-12 12/12/2023 12/11/2022 HbA1c 12/12/2023 12/11/2022, 06/28, 07/06/2021, Additional history exists O2 ASSESSMENT COMPLETED IN PAST YEAR FOR COPD 02/13/2024 02/15/2023 GFR 02/15/2024 02/14/2023, /05/2022, 01/14/2023, Additional history exists Colonoscopy 07/06/2026 07/06/2016, 07/06/2016 [...] 08/29/2016 LUNG CANCER SCREENING - USE SMARTSET 38985 Completed 10/01/2017 Zoster Vaccines Completed 12/14/2019, 09/24, 02/16/2013 GARDASIL-HPV IMMUNIZATION SERIES Aged Out No longer eligible based on patient's age to complete this topic Hepatitis B Aged Out No longer eligi ble based on patient's age to complete this topic documented as of this encounter Medical Devices Implanted Type Area Recreation Program Coordinator Device Identifier Shelf Expiration Date Model / Serial / Lot Port Implant W/8f Poly Cath - [id number] Implanted:Qty : 1 on 02/12/2023 at [facility] Right: Chest CR BARD : PERIPHERAL VASCULAR [id number] 04/25/2024 [id number] / / [id number] documented as of this encounter Visit Diagnoses Diagnosis 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)- Primary Chronic lymphoid leukemia, without mention of having achieved remission Encounter for antineoplastic chemotherapy Gall bladder disease Unspecified disorder of gallbladder Carcinoma of gallbladder (HCC) Malignant neoplasm of gallbladder documented in this encounter Administered Medications Active Administered Medications - up to 3 most recent administrations Medication Order MAR Action Action Date Dose Rate Site diphenhydrAMINE (Benadryl) inj 50 mg 50 mg, IV Push, ONCE PRN Other, Hypersensitivity Reaction, Starting on Sat02/15/23 at 0930, Until 02/16/23 at 0929, For 24 hours EPINEPHrine 1 MG/ML inj 0.3 mg 0.3 mg, Intramuscular, ONCE PRN Other, Hypersensitivity Reaction or Anaphylaxis, Starting on Sat02/15/23 at 0930, Until 02/16/23 at 0929, For 24 hours hEParin 100 UNIT/ML Lock Flush inj 500 Units 500 Units (5 mL), IV Lock, PRN Other, IV Flush, Starting on Sat02/15/23 at 0930, Until 02/16/23 at 0929, For 24 hours, Do not flush if lock, PICC, or central line not in place; IV infusing or unable to flush. Given 02/15/2023 3:09 PM EDT 500 Units Hydrocortisone Sod Suc (PF) (Solu-Cortef) inj 100 mg 100 mg, IV Push, ONCE PRN Other, Hypersensitivity Reaction, Starting on Sat02/15/23 at 0930, Until 02/16/23 at 0929, For 24 hours NSS 1,000 mL with magnesium sulfate 1 g infusion Intravenous, at 500 mL/hr Administer over 2 Hours, Post-cisplatin hydration, CONTINUOUS, Starting on Sat02/15/23 at 1215, Until Discontinued Start Infusion 02/15/2023 1:05 PM EDT 500 mL/hr NSS infusion 500 mL, Intravenous, at 50 mL/hr, CONTINUOUS, Starting on Sat02/15/23 at 1045, Until Sat02/15/23 at 2044 Start Infusion 02/15/2023 9:13 AM EDT 500 mL 50 mL/hr oxygen GAS Inhalation, OXYGEN, First dose on Sat02/15/23 at 1015, Until Discontinued, Device/Managed by: Low [...] Push, PRN Other, IV Flush, Starting on Sat02/15/23 at 0930, Until Sat02/16/23 at 0929, For 24 hours, Do not flush if lock, PICC, or central line not in place; IV infusing or unable to flush. Given 02/15/2023 3:09 PM EDT 10 mL Inactive Administered Medications - up to 3 most recent administrations Medication Order MAR Action Action Date Dose Rate Site CISplatin (Platinol) 58 mg in NSS 500 mL infusion 58 mg (25 mg/m2 2.32 m2 Treatment Plan BSA from Recorded weight), IV Piggyback, Administer over 60 Minutes, PROTECT FROM LIGHT, ONCE, 1 dose, On Sat02/15/23 at 1115 Start Infusion 02/15/2023 11:59 AM EDT 58 mg 500 mL/hr Durvalumab (Imfinzi) 1,500 mg in NSS 250 mL infusion 1,500 mg, IV Piggyback, ONCE, 1 dose, On Sat02/15/23 at 1015, Administer over 60 Minutes, Administer through 0.22 micron low protein binding filter! Final Concentration between 1-15 mg/mL Start Infusion 02/15/2023 10:16 AM EDT 1,500 mg 250 mL/hr fosaprepitant Dimeglumine (Emend) 150 mg, ondansetron (Zofran) 16 mg, dexamethasone sodium phosphate 12 mg in NSS 250 mL Infusion 150 mg, IV Piggyback, ONCE, 1 dose, On Sat02/15/23 at 1045, Administer over 30 Minutes, Give 30 minutes prior to chemotherapy. Infuse over 30 minutes. Start Infusion 02/15/2023 9:31 AM EDT 150 mg 500 mL/hr gemcitabine (Gemzar) 2,400 mg in NSS 250 mL infusion 2,400 mg (rounded from 2,320 mg = 1,000 mg/m2 2.32 m2 Treatment Plan BSA from Recorded weight), IV Piggyback, ONCE, 1 dose, On Sat02/15/23 at 1115, Administer over 30 Minutes Start Infusion 02/15/2023 11:25 AM EDT 2,400 mg 500 mL/hr potassium chloride ER tab 20 mEq 20 mEq, Oral, ONCE, On Sat02/15/23 at 1215, For 1 dose, This med should NOT be Crushed or Chewed Give with post-hydration. Hold if serum potassium is greater than or equal to 5 mmol/L. Given 02/15/2023 1:08 PM EDT 20 mEq documented in this encounter Advance Directives Latest Code Status on File Code Status Date Activated Date Inactivated Comments Full Code 12/27/2022 3:40 PM 01/01/2023 8:39 PM This or aj reflects the patients wishes and were consensually agreed upon. Question Answer Comments Discussion of Advance Directives occurred with: Patient Care Teams [employer] Assembler Relationship Specialty Start Date End Date Chema Combs MD [address] [place] [address] PCP - General Family Medicine 07/02/18 documented as of this encounter
--- OUTSIDE RECORDS SUMMARY | 2023-05-22 14:55 | External Medical Summary ---
Author Name Unknown Address Unknown Organization K01:[facility] [place] - [address] [place] [address] Laboratory Report Ordering Provider Test Date Status DELIO GOLD 02/14/2023 09:25:00 Final Observation Date Value Abnormality Reference (Units ) Status MYCODE SPECIMEN-SST 02/14/2023 09:25:00 Freezing of extracted DNA, whole blood and/or serum. Final Performing Location [facility] [place] - [address] [place] [address]
--- OUTSIDE RECORDS SUMMARY | 2023-05-22 14:55 | External Medical Summary | Summary of Care ---
Author Name Unknown Organization [facility] Address [address] [facility] [address] Phone [phone] Care Team Providers Care Line Maintenance Supervisor Name Role Phone Chema Combs MD Primary Care Provider [phone] Reason for Visit * Reason Onset Date Comments Follow Up 02/18/2023 C1D1 GemCDDP Encounter Details Date Type Department Care Team Description 02/18/2023 Telephone Hematology/Oncology Treatment, [place] [address] [facility] [place] [address] Scout Huddleston MD [address] [place] [address] Follow Up (C1D1 GemCDDP) Allergies Active Allergy Reactions Severity Noted Date Comments Lisinopril Cough Low 08/18/2009 documented as of this encounter (statuses as of 02/18/2023) Medications Medication Sig Dispensed Refills Start Date [...] as of this encounter (statuses as of 02/18/2023) Active Problems Problem Noted Date Gall bladder [...] as of this encounter (statuses as of 02/18/2023) Resolved Problems Problem Noted Date Resolved Date [...] as of this encounter (statuses as of 02/18/2023) Immunizations Name Administration Dates Next Due COVID-19 [...] encounter Miscellaneous Notes * Telephone Encounter - KRYSTIN Bonilla - 02/18/2023 2:27 PM EDT Patient appt has been moved to 03/07/23. Patient aware. * Telephone Encounter - Maria T Wood RN - 02/18/2023 2:16 PM EDT HEMATOLOGY/ONCOLOGY INITIAL CHEMO FOLLOW-UP Post chemo side effects: Patient is doing well. He used the zofran for three days BID as recommended, he had no N/V. He states that he was a little constipated, but he used senna and had a normal BM this morning, and that has improved. He states that he is fatigued, but other than that, he is doing well. He is eating and drinking. Understands post treatment medications: Yes Understands to call office prior to ER visit/or with issues: Yes Aware of next appointment: Yes Additional information: patient states that he is to see Dr Huddleston on 03/06 and he was to have labs done first and then see Dr Huddleston after, the following day on 03/07, but it was scheduled for 03/08. He would like this moved to 03/07. Scheduling made aware to update appts. Scheduling: please call patient with updated appt for 03/07 thanks! documented in this encounter Plan of Treatment Upcoming Encounters Date Type Specialty Care Team Description 02/21/2023 Laboratory Laboratory [place], Lab [address] [place] [address] 02/22/2023 Hem/Onc Treatment Hematology Oncology [place], Chair 7 Hem Onc Scenery [address] [place] [address] 02/28/2023 Telemedicine Nutrition Services Nery Church, RDN [address] [place] [address] 03/06/2023 Laboratory Laboratory [place], Lab Scenery [address] [place] [address] 03/06/2023 Office Visit Hematology Oncology Scout Huddleston MD [address] [place] [address] 03/07/2023 Hem/Onc Treatment Hematology Oncology [place], Chair 5 Hem Onc Scenery [address] [place] [address] 03/12/2023 Office Visit Family Medicine Chema Combs MD [address] [place] [address] 04/30/2023 Office Visit Family Medicine Chema Combs MD [address] [place] [address] 09/19/2023 Office Visit Cardiology Prashant Ruiz, DO [address] [place] [address] Scheduled Procedures Name Priority Associated Diagnoses Date/Ti [...] 12/11/2022, 06/28, 07/06/2021, Additional history exists GFR 02/15/2024 02/14/2023, 12/27, 01/14/2023, Additional history exists O2 ASSESSMENT COMPLETED IN PAST YEAR FOR COPD 02/16/2024 02/15/2023 Colonoscopy 07/06/2026 07/06/2016, 07/06/2016 Colorectal Cancer Screening [...] 08/29/2016 LUNG CANCER SCREENING - USE SMARTSET [id number] Completed 10/01/2017 Zoster Vaccines Completed 12/14/2019, 09/24, 02/16/2013 GARDASIL-HPV IMMUNIZATION SERIES Aged Out No longer eligible based on patient's age to complete this topic Hepatitis B Aged Out No longer eligi ble based on patient's age to complete this topic documented as of this encounter Medical Devices Implanted Type Area Auto Hauler Device Identifier Shelf Expiration Date Model / Serial / Lot Port Implant W/8f Poly Cath - [id number] Implanted:Qty : 1 on 02/12/2023 at [facility] Right: Chest CR BARD : PERIPHERAL VASCULAR [id number] 04/25/2024 [id number] / / [id number] documented as of this encounter Advance Directives Latest Code Status on File Code Status Date Activated Date Inactivated Comments Full Code 12/27/2022 3:40 PM 01/01/2023 8:39 PM This or aj reflects the patients wishes and were consensually agreed upon. Question Answer Comments Discussion of Advance Directives occurred with: Patient Care Teams Line Maintenance Supervisor Relationship Specialty Start Date End Date Chema Combs MD [address] [place] [address] PCP - General Family Medicine 07/02/18 documented as of this encounter
--- OUTSIDE RECORDS SUMMARY | 2023-05-22 14:55 | External Medical Summary ---
Author Name Unknown Address Unknown Organization K01:[facility] [facility] [address] [facility] [place] [address] Laboratory Report Ordering Provider Test Date Status MARLON ORTEGA 02/14/2023 09:25:00 Final Observation Date Value Abnormality Reference (Units ) Status BUN 02/14/2023 09:25:00 15 6-20 (mg/dL) Final Creatinine 02/14/2023 09:25:00 0.9 0.6-1.2 (mg/dL) Final Glomerular filtration rate/1.73 sq M.predicted [Volume Rate/Area] in Serum, Plasma or Blood by Creatinine-based formula (CKD-EPI) 02/14/2023 09:25:00 86 >=60 (mL/min) Final eGFR is calculated based on the CKD-EPI 2020 equation SODIUM 02/14/2023 09:25:00 138 135-146 (m mol/L) Final Potassium 02/14/2023 09:25:00 4.4 3.5-5.1 (m mol/L) Final Cl 02/14/2023 09:25:00 99 98-107 (mm ol/L) Final CO2 02/14/2023 09:25:00 26 22-32 (mmo l/L) Final Anion gap 02/14/2023 09:25:00 13 7-15 (mmol /L) Final Glucose 02/14/2023 09:25:00 113 70-120 (mg /dL) Final Albumin 02/14/2023 09:25:00 4.2 3.8-5.0 (g /dL) Final AST (Aspartate aminotransferase) 02/14/2023 09:25:00 34 10-50 (U/L) Fin al Alk Phos 02/14/2023 09:25:00 266 Above high normal 35 -130 (U/L) Final Bilirubin, Total 02/14/2023 09:25:00 0.8 <=1 .2 (mg/dL) Final Calcium 02/14/2023 09:25:00 9.8 8.4-10.2 ( mg/dL) Final Protein 02/14/2023 09:25:00 6.2 6.0-8.3 (g /dL) Final ALT (Alanine aminotransferase) 02/14/2023 09:25:00 24 10-50 (U/L) Donell matthew Performing Location [facility]ORY [facility] - [address] [facility] [address]
--- OUTSIDE RECORDS SUMMARY | 2023-05-22 14:55 | External Medical Summary | Summary of Care ---
Author Name Unknown Organization [facility] Address [address] [facility] [address] Phone [phone] Care Team Providers Care Through Freight Engineer Name Role Phone Chema Combs MD Primary Care Provider Reason for Visit * Reason Comments Nurse Documentation Delay chemo 1 week IV Therapy Hydration Encounter Details Date Type Department Care Team Description 02/22/2023 Hem/Onc Treatment Hematology/Oncology Treatment, [place] [address] [facility] [place] [address] Chandrika, Chair 7 Hem Onc Scenery [address] [facility] [place] [address] 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)*; Carcinoma of gallbladder (HCC) Allergies Active Allergy Reactions Severity Noted Date Comments Lisinopril Cough Low 08/18/2009 documented as of this encounter (statuses as of 02/22/2023) Medications Medication Sig Dispensed Refills Start Date [...] as of this encounter (statuses as of 02/22/2023) Active Problems Problem Noted Date Gall bladder [...] as of this encounter (statuses as of 02/22/2023) Resolved Problems Problem Noted Date Resolved Date [...] 02/06/2008 06/16/2015 PVD (PERIPHERAL VASCULAR DISEASE) PERIP ALVIN RANGEL 02/06/2008 01/02/2012 Screening for prostate cancer 02/06/2008 Overview: Resolved per Screening Diagnosis Protocol #6 Tobacco use disorder 02/06/2008 01/02/2012 Osteoporosis 02/06/2008 06/16/2015 PAIN IN LIMB, LEFT DISTAL GREAT TOE 02/06/2008 06/16/2015 HTN, goal below 140/90 3 HTN, goal below 140/80 5 documented as of this encounter (statuses as of 02/22/2023) Immunizations Name Administration Dates Next Due COVID-19 [...] Sign Reading Time Taken Comments Blood Pressure 112/78 02/22/2023 9:28 AM EDT Pulse 80 02/22/2023 9:28 AM EDT Temperature 36.6 C (97.9 F) 02/22/2023 8:46 AM ED T Respiratory Rate 98 02/22/2023 9:28 AM EDT Oxygen Saturation 98% 02/22/2023 8:46 AM EDT Inhaled Oxygen Concentration - - [...] Nursing Notes * Anh Alfonso RN - 02/22/2023 12:28 PM EDT Pt completed treatment without further issues. Pt reports feeling "much better" since receiving hydration. VAD flushed with 10 ml NSS and [...] during treatment today. Discharged in stable condition. BR assisted. * Anh Alfonso RN - 02/22/2023 10:44 AM EDT Chair 3 Chemo agents Gemzar/Cisplatin [id number] Appetite pt reports decreased appetite, but states he is eating Nausea/Vomiting no Diarrhea no Constipation yes, secondary to Zofran use. Pt is taking senna PRN. Mucositis no Fatigue yes, most noted side effect Bleeding no Infection no Rash no Numbness tingling no Pain no Radiation n/a ABN Labs BUN 30, Creat 1.4. Reviewed with Dr. Huddleston; delay treatment by 1 week Alt in Tx: give NSS 1L over 2 hours today Return in 1 week VAD accessed yielding good blood return; NSS infusing. Immediately following VAD access, pt c/o feeling hot and stated "what is happening". Pt became verbally unresponsive. Pt placed in supine position. Pt became diaphoretic. Vital signs WNL. Dr. Pickett assessed pt and determined it to be a vasovagal response. Per pt, he experiences extreme anxiety with needles. Pt was clearly very anxious during VAD access. Pt became responsive within 2-3 minutes, but could not recall what happened. Will continue to monitor. documented in this encounter Plan of Treatment Upcoming Encounters Date Type Specialty Care Team Description 02/28/2023 Telemedicine Nutrition Services Nery Church, RDN [address] [place], [place] [id number] 02/28/2023 Laboratory Laboratory [place], Lab Lock [address] [place] [address] 03/01/2023 Hem/Onc Treatment Hematology Oncology [place], Chair 4 Hem Onc Scenery [address] [place] [address] 03/06/2023 Laboratory Laboratory [place], Lab Scenery [address] [place] [address] 03/06/2023 Office Visit Hematology Oncology Scout Huddleston MD [address] [place] [address] 03/07/2023 Hem/Onc Treatment Hematology Oncology [place], Chair 5 Hem Onc Scenery [address] [place] [address] 03/08/2023 Hem/Onc Treatment Hematology Oncology [place], Chair 7 Hem Onc Scenery [address] [place] [address] 03/12/2023 Office Visit Family Medicine [facility] [address] [facility] [place] [address] 04/30/2023 Office Visit Family Medicine Chema Combs MD [address] [place] [address] 09/19/2023 Office Visit Cardiology Prashant Ruiz, DO [address] [place] [address] Scheduled Procedures Name Priority Associated Diagnoses Date/Ti [...] IN PAST YEAR FOR COPD 02/16/2024 02/15/2023 GFR 02/22/2024 02/21/2023, 01/26, 01/24/2023, Additional history exists Colonoscopy 07/06/2026 07/06/2016, 07/06/2016 [...] 08/29/2016 LUNG CANCER SCREENING - USE SMARTSET 36387 Completed 10/01/2017 Zoster Vaccines Completed 12/14/2019, 09/24, 02/16/2013 GARDASIL-HPV IMMUNIZATION SERIES Aged Out No longer eligible based on patient's age to complete this topic Hepatitis B Aged Out No longer eligi ble based on patient's age to complete this topic documented as of this encounter Medical Devices Implanted Type Area Therapist Respiratory Device Identifier Shelf Expiration Date Model / Serial / Lot Port Implant W/8f Poly Cath - [id number] Implanted:Qty : 1 on 02/12/2023 at [facility] Right: Chest CR BARD : PERIPHERAL VASCULAR [id number] 04/25/2024 [id number] / / [id number] documented as of this encounter Visit Diagnoses [...] Lock, PRN Other, IV Flush, Starting on Sat02/22/23 at 1048, Until 02/23/23 at 1047, For 24 hours, Do not flush if lock, PICC, or central line not in place; IV infusing or unable to flush. Given 02/22/2023 11:39 AM EDT 500 Units sodium chloride 0.9 % flush central line 10 mL 10 mL, IV Push, PRN Other, IV Flush, Starting on Sat02/22/23 at 1048, Until 02/23/23 at 1047, For 24 hours, Do not flush if lock, PICC, or central line not in place; IV infusing or unable to flush. Given 02/22/2023 11:39 AM EDT 10 mL Inactive Administered Medications - up to 3 most recent administrations Medication Order MAR Action Action Date Dose Rate Site NSS infusion FOR HYDRATION Intravenous, at 500 mL/hr Administer over 2 Hours, ONCE, 1 dose, On Sat02/22/23 at 1200 Start Infusion 02/22/2023 9:33 AM EDT 1,000 mL 500 mL/hr documented in this encounter Advance Directives Latest Code Status on File Code Status Date Activated Date Inactivated Comments Full Code 12/27/2022 3:40 PM 01/01/2023 8:39 PM This or aj reflects the patients wishes and were consensually agreed upon. Question Answer Comments Discussion of Advance Directives occurred with: Patient Care Teams Through Freight Engineer Relationship Specialty Start Date End Date Chema Combs MD [address] [place], [place] [phone] PCP - General Family Medicine 07/02/18 documented as of this encounter
--- OUTSIDE RECORDS SUMMARY | 2023-05-22 14:55 | External Medical Summary ---
Author Name Unknown Address Unknown Organization [id number]:[place] [facility] [place] [address] [facility] [place] [address] Laboratory Report Ordering Provider Test Date Status MARLON ORTEGA 02/21/2023 09:50:49 Final Observation Date Value Abnormality Reference (Units ) Status SYNC LEUKOCYTES IN BLOOD BY AUTOMATED COUNT 02/21/2023 09:50:49 26.11 Above high normal 4.00-10.80 (K/uL) Final Segs 02/21/2023 09:50:49 22.5 Below low normal 40.0-75.0 (%) Final Lymphs % 02/21/2023 09:50:49 75.3 Above high normal 18.0-42.0 (%) Final Monos 02/21/2023 09:50:49 1.0 1.0-11.0 (%) Final Eosinophils 02/21/2023 09:50:49 0.5 0.0-6.0 (%) Final Basos 02/21/2023 09:50:49 0.3 0.0-2.0 (%) Final Immature Granulocyte, Percent 02/21/2023 09:50:49 0.4 0.0-2.0 (%) Final Absolute Segs 02/21/2023 09:50:49 5.85 1.80-7.70 (K/uL) Final Lymphs, absolute 02/21/2023 09:50:49 19.66 Above high normal 1.00-4.80 (K/ul) Final Monos, Abs 02/21/2023 09:50:49 0.27 0.00-1.10 (K/uL) Final Eos, Abs 02/21/2023 09:50:49 0.13 0.00-0.70 (K/uL) Final Basos, Abs 02/21/2023 09:50:49 0.09 0.00-0.20 (K/uL) Final Immature Granulocytes, Number 02/21/2023 09:50:49 0.11 0.00-0.20 (K/uL) Final Performing Location [place] [facility] [place] [facility] [address] [facility] [address]
--- OUTSIDE RECORDS SUMMARY | 2023-05-22 14:55 | External Medical Summary | Summary of Care ---
Author Name Unknown Organization [facility] Address [address] [facility] [address] Phone [phone] Care Team Providers Care Gas Meter Mechanic Name Role Phone Chema Combs MD Primary Care Provider [phone] Reason for Visit * Reason Onset Date Comments Test Results Lab 02/25/2023 Encounter Details Date Type Department Care Team Description 02/25/2023 Telephone Hematology/Oncology [facility] [place] [address] [place] [address] Scout Huddleston MD [address] [place] [address] Test Results Lab Allergies Active Allergy Reactions Severity Noted Date Comments Lisinopril Cough Low 08/18/2009 documented as of this encounter (statuses as of 02/25/2023) Medications Medication Sig Dispensed Refills Start Date [...] as of this encounter (statuses as of 02/25/2023) Active Problems Problem Noted Date Gall bladder [...] as of this encounter (statuses as of 02/25/2023) Resolved Problems Problem Noted Date Resolved Date [...] as of this encounter (statuses as of 02/25/2023) Immunizations Name Administration Dates Next Due COVID-19 [...] encounter Miscellaneous Notes * Telephone Encounter - Piedad Torres LPN - 02/25/2023 12:15 PM EDT Notified patient per Stumpedia[employer] message, patient is active. Patient has lab appointment on 02/28/23. Orders are in. ----- Message from Scout Huddleston MD sent at 02/24/2023 1:30 PM EDT ----- Increase creatinine, will repeat before next cheno documented in this encounter Plan of Treatment Upcoming Encounters Date Type Specialty Care Team Description 02/28/2023 Laboratory Laboratory [place], Lab Lock [address] [place] [address] 03/01/2023 Hem/Onc Treatment Hematology Oncology [place], Chair 4 Hem Onc Scenery [address] [place] [address] 03/06/2023 Laboratory Laboratory [place], Lab Scenery [address] [place] [address] 03/06/2023 Office Visit Hematology Oncology Scout Huddleston MD [address] [place] [address] 03/07/2023 Hem/Onc Treatment Hematology Oncology [place], Chair 5 Hem Onc Scenery [address] [place] [address] 03/08/2023 Hem/Onc Treatment Hematology Oncology [place], Chair 7 Hem Onc Scenery [address] [place] [address] 03/12/2023 Office Visit Family Medicine hCema Combs MD [address] [place] [address] 03/14/2023 Telemedicine Nutrition Services Lynnette Nery Goodwinn, RDN [address] [place] [address] 04/30/2023 Office Visit Family Medicine Chema Combs MD [address] [place] [address] 09/19/2023 Office Visit Cardiology Prashant Ruiz, DO [address] [place] [address] Scheduled Procedures Name Priority Associated Diagnoses Date/Ti [...] 08/29/2016 LUNG CANCER SCREENING - USE SMARTSET 16799 Completed 10/01/2017 Zoster Vaccines Completed 12/14/2019, 09/24, 02/16/2013 GARDASIL-HPV IMMUNIZATION SERIES Aged Out No longer eligible based on patient's age to complete this topic Hepatitis B Aged Out No longer eligi ble based on patient's age to complete this topic documented as of this encounter Medical Devices Implanted Type Area Rail Operations Controller Device Identifier Shelf Expiration Date Model / Serial / Lot Port Implant W/8f Poly Cath - [id number] Implanted:Qty : 1 on 02/12/2023 at [facility] Right: Chest CR BARD : PERIPHERAL VASCULAR [id number] 04/25/2024 [id number] / / [id number] documented as of this encounter Advance Directives Latest Code Status on File Code Status Date Activated Date Inactivated Comments Full Code 12/27/2022 3:40 PM 01/01/2023 8:39 PM This or aj reflects the patients wishes and were consensually agreed upon. Question Answer Comments Discussion of Advance Directives occurred with: Patient Care Teams Gas Meter Mechanic Relationship Specialty Start Date End Date Chema Combs MD [address] [place] [address] PCP - General Family Medicine 07/02/18 documented as of this encounter
--- OUTSIDE RECORDS SUMMARY | 2023-05-22 14:55 | External Medical Summary | Summary of Care ---
Author Name Unknown Organization [facility] Address [address] [facility] [address] Phone [phone] Care Team Providers Care Street Car Inspector Name Role Phone Chema Combs MD Primary Care Provider [phone] Reason for Visit * Reason Onset Date Comments Follow Up 02/18/2023 C1D1 GemCDDP Encounter Details Date Type Department Care Team Description 02/18/2023 Telephone Hematology/Oncology Treatment, [place] [address] [facility] [place] [address] Scout Huddleston MD [address] [place] [address] Follow Up (C1D1 GemCDDP) Allergies Active Allergy [...] 02/21/2023 Laboratory Laboratory [place], Lab Lock [address] [place] [address] 02/22/2023 Hem/Onc Treatment Hematology Oncology [place], Chair 7 Hem Onc Scenery [address] [place] [address] 02/28/2023 Telemedicine Nutrition Services Nery Church, RDN [address] [place] [address] 03/06/2023 Laboratory Laboratory [place], Lab Scenery [address] [place] [address] 03/06/2023 Office Visit Hematology Oncology Scout Huddleston MD [address] [place] [address] 03/07/2023 Hem/Onc Treatment Hematology Oncology [place], Chair 5 Hem Onc Scenery [address] [place] [address] 03/12/2023 Office Visit Family Medicine Chema Combs MD [address] [place] [address] 04/30/2023 Office Visit Family Medicine Chema Combs MD [address] [place] [address] 09/19/2023 Office Visit Cardiology Prashant Ruiz, DO [address] [place] [address] Scheduled Procedures Name Priority Associated Diagnoses Date/Ti [...] 08/29/2016 LUNG CANCER SCREENING - USE SMARTSET 13619 Completed 10/01/2017 Zoster Vaccines Completed 12/14/2019, 09/24, 02/16/2013 GARDASIL-HPV IMMUNIZATION SERIES Aged Out No longer eligible based on patient's age to complete this topic Hepatitis B Aged Out No longer eligi ble based on patient's age to complete this topic documented as of this encounter Medical Devices Implanted Type Area Chain Carrier Device Identifier Shelf Expiration Date Model / Serial / Lot Port Implant W/8f Poly Cath - [id number] Implanted:Qty : 1 on 02/12/2023 at [facility] Right: Chest CR BARD : PERIPHERAL VASCULAR [id number] 04/25/2024 [id number] / / [id number] documented as of this encounter Advance Directives Latest Code Status on File Code Status Date Activated Date Inactivated Comments Full Code 12/27/2022 3:40 PM 01/01/2023 8:39 PM This or aj reflects the patients wishes and were consensually agreed upon. Question Answer Comments Discussion of Advance Directives occurred with: Patient Care Teams Street Car Inspector Relationship Specialty Start Date End Date Chema Combs MD [address] [place] [address] PCP - General Family Medicine 07/02/18 documented as of this encounter
--- OUTSIDE RECORDS SUMMARY | 2023-05-22 14:55 | External Medical Summary ---
Author Name Unknown Address Unknown Organization K01:[facility]ORY [facility] [place] [facility] [address] [facility] [place] [address] Laboratory Report Ordering Provider Test Date Status MARLON ORTEGA 02/21/2023 09:50:49 Final Observation Date Value Abnormality Reference (Units ) Status BUN 02/21/2023 09:50:49 30 Above high normal 6-20 (mg/dL) Final Creatinine 02/21/2023 09:50:49 1.4 Above high normal 0.6-1.2 (mg/dL) Final Glomerular filtration rate/1.73 sq M.predicted [Volume Rate/Area] in Serum, Plasma or Blood by Creatinine-based formula (CKD-EPI) 02/21/2023 09:50:49 55 Below low normal >=60 (mL/min) Final eGFR is calculated based on the CKD-EPI 2020 equation SODIUM 02/21/2023 09:50:49 138 135-146 (m mol/L) Final Potassium 02/21/2023 09:50:49 4.1 3.5-5.1 (m mol/L) Final Cl 02/21/2023 09:50:49 94 Below low normal 98- 107 (mmol/L) Final CO2 02/21/2023 09:50:49 29 22-32 (mmo l/L) Final Anion gap 02/21/2023 09:50:49 15 7-15 (mmol /L) Final Glucose 02/21/2023 09:50:49 114 70-120 (mg /dL) Final Albumin 02/21/2023 09:50:49 4.4 3.8-5.0 (g /dL) Final AST (Aspartate aminotransferase) 02/21/2023 09:50:49 30 10-50 (U/L) Fin al Alk Phos 02/21/2023 09:50:49 265 Above high normal 35 -130 (U/L) Final Bilirubin, Total 02/21/2023 09:50:49 0.8 <=1 .2 (mg/dL) Final Calcium 02/21/2023 09:50:49 10.1 8.4-10.2 ( mg/dL) Final Protein 02/21/2023 09:50:49 6.4 6.0-8.3 (g /dL) Final ALT (Alanine aminotransferase) 02/21/2023 09:50:49 31 10-50 (U/L) Donell matthew Performing Location LABORATORY [facility] [place] - [address] [facility] [address]
--- OUTSIDE RECORDS SUMMARY | 2023-05-22 14:55 | External Medical Summary ---
Author Name Unknown Address Unknown Organization K01:LAB[facility]ATORY [facility] [place] [address] [place] [address] Laboratory Report Ordering Provider Test Date Status MARLON ORTEGA 02/21/2023 09:50:49 Final Observation Date Value Abnormality Reference (Units ) Status TSH 02/21/2023 09:50:49 2.25 0.27-4.20 (uIU/mL) Final Performing Location [facility]ATORY [facility] [place] - [address] [place] [address]
--- OUTSIDE RECORDS SUMMARY | 2023-05-22 14:55 | External Medical Summary | Summary of Care ---
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); Encounter for antineoplastic chemotherapy; Carcinoma of gallbladder (HCC) Allergies Active Allergy Reactions Severity Noted Date Comments Lisinopril Cough Low 08/18/2009 documented as of this encounter (statuses as of 02/21/2023) Medications Medication Sig Dispensed Refills Start Date [...] as of this encounter (statuses as of 02/21/2023) Active Problems Problem Noted Date Gall bladder [...] as of this encounter (statuses as of 02/21/2023) Resolved Problems Problem Noted Date Resolved Date [...] as of this encounter (statuses as of 02/21/2023) Immunizations Name Administration Dates Next Due COVID-19 [...] Encounters Date Type Specialty Care Team Description 02/22/2023 Hem/Onc Treatment Hematology [place], Chair 7 Hem Onc Scenery [address] [facility] [address] 02/28/2023 Telemedicine Nutrition Services Nery Church RDN [address] [place] [address] 03/06/2023 Laboratory Laboratory [place] Lab Scenery [address] [place] [address] 03/06/2023 Office Visit Hematology Oncology Scout Huddleston MD [address] [place] [address] 03/07/2023 Hem/Onc Treatment Hematology Oncology [place], Chair 5 Hem Onc Scenery [address] [place] [address] 03/12/2023 Office Visit Family Medicine Chema Combs MD [address] [place] [address] 04/30/2023 Office Visit Family Chema Moran MD [address] [place] [address] 09/19/2023 Office Visit Cardiology Prashant Ruiz, DO [address] [place] [address] Pending Results Name Type Priority Associated Diagnoses Date /Time CBC WITH WBC DIFFERENTIAL Lab STAT Gall bladder disease 02/21/2023 9:50 AM EDT COMPREHENSIVE METABOLIC PANEL Lab STAT Gall bladder disease 02/21/2023 9:50 AM EDT TSH WITH FREE T4 IF INDICATED Lab STAT Gall bladder disease 02/21/2023 9:50 AM EDT MAGNESIUM Lab STAT 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) 02/21/2023 9:50 AM EDT CBC Lab STAT Gall bladder disease 02/21/2023 9:50 AM EDT DIFFERENTIAL, AUTOMATED Lab STAT Gall bladder disease 02/21/2023 9:50 AM EDT Scheduled Procedures Name Priority Associated [...] 08/29/2016 LUNG CANCER SCREENING - USE SMARTSET 24620 Completed 10/01/2017 Zoster Vaccines Completed 12/14/2019, 09/24, 02/16/2013 GARDASIL-HPV IMMUNIZATION SERIES Aged Out No longer eligible based on patient's age to complete this topic Hepatitis B Aged Out No longer eligi ble based on patient's age to complete this topic documented as of this encounter Medical Devices Implanted Type Area Pensions Retirement Plan Specialist Device Identifier Shelf Expiration Date Model / Serial / Lot Port Implant W/8f Poly Cath - [id number] Implanted:Qty : 1 on 02/12/2023 at [facility] Right: Chest CR BARD : PERIPHERAL VASCULAR [id number] 04/25/2024 [id number] / / [id number] documented as of this encounter Visit Diagnoses [...] Advance Directives occurred with: Patient Care Teams Diabetes Clinical Manager Relationship Specialty Start Date End Date Chema Combs MD [address] [place] [address] PCP - General Family Medicine 07/02/18 documented as of this encounter
--- OUTSIDE RECORDS SUMMARY | 2023-05-22 14:55 | External Medical Summary ---
Author Name Unknown Address Unknown Organization K01:LABORATORY [facility] [place] - [address] [place] [address] Laboratory Report Ordering Provider Test Date Status MARLON ORTEGA 02/21/2023 09:50:49 Final Observation Date Value Abnormality Reference (Units ) Status Magnesium 02/21/2023 09:50:49 1.9 1.5-2.6 (m g/dL) Final Performing Location LABORATORY [facility] - [address] [place] [address]
--- OUTSIDE RECORDS SUMMARY | 2023-05-22 14:55 | External Medical Summary ---
Author Name Unknown Address Unknown Organization K01:LABORATORY [facility] [place] - [facility] [address] [facility] [address] [place] [address] Laboratory Report Ordering Provider Test Date Status MARLON ORTEGA 02/21/2023 09:50:49 Final Observation Date Value Abnormality Reference (Units ) Status WBC, Total 02/21/2023 09:50:49 26.11 Above high normal 4.00-10.80 (K/uL) Final RBC 02/21/2023 09:50:49 4.57 4.50-5.25 (M/uL) Final Hemoglobin 02/21/2023 09:50:49 14.1 14.0-16.8 (g/dL) Final HCT 02/21/2023 09:50:49 42.5 40.0-48.4 (%) Final MCV 02/21/2023 09:50:49 93.0 82.0-99.5 (fL) Final MCH 02/21/2023 09:50:49 30.9 27.0-34.0 (pg) Final MCHC 02/21/2023 09:50:49 33.2 32.0-36.0 (g/dL) Final RDW 02/21/2023 09:50:49 13.7 11.5-15.5 (%) Final Platelets 02/21/2023 09:50:49 319 140-400 (K/uL) Final MPV 02/21/2023 09:50:49 10.1 6.6-11.1 (fL) Final Nucleated erythrocytes/100 leukocytes [Ratio] in Blood by Automated count 02/21/2023 09:50:49 0 <=0 (/100 WBCs) Final Performing Location LAB[facility]ORY [facility] [place] - [address] [place] [address]
--- OUTSIDE RECORDS SUMMARY | 2023-05-22 14:55 | External Medical Summary | Summary of Care ---
Author Name Unknown Organization [facility] Address [address] [facility] [place] [address] Phone [phone] Care Team Providers Care Front Office Administrator Name Role Phone Robert Combs MD Primary Care Provider [phone] Reason for Visit * Reason Comments eRx-Medication Refill Encounter Details Date Type Department Care Team Description 02/16/2023 Refill [facility] [address] [place] [address] Robert Combs MD [address] [place] [address] Dyslipidemia, goal LDL below 100; Prediabetes Allergies Active Allergy Reactions Severity Noted Date [...] [place], goal below 150/90,PAF (paroxysmal atrial fibrillation) ([facility]) TAKE 1 CAPSULE BY MOUTH EVERY DAY 90 Capsule 3 06/28/2022 Active Eliquis 5 MG Oral Tablet (Apixaban)Indica tions:PAF (paroxysmal atrial fibrillation) (HCC) TAKE 1 TABLET BY MOUTH TWICE A DAY 180 Tablet 3 06/28/2022 Active Metoprolol Tartrate 50 MG Oral Tablet (Lopressor)Indic ations:HTN, goal below 150/90,PAF (paroxysmal atrial fibrillation) (HCC) [...] Active Atorvastatin Calcium 20 MG Oral Tablet (Lipitor)Indicat ions:Dyslipidemi a, goal LDL below 100 TAKE 1 TABLET BY MOUTH EVERY DAY IN THE MORNING 90 Tablet 1 02/18/2023 Active metFORMIN HCl ER 500 MG Oral Tablet Extended Release 24 Hour (Glucophage XR)Indications:P rediabetes TAKE 1 TABLET BY MOUTH EVERY DAY [...] morning. 90 Tablet 3 01/17/2022 3 Discontinued documented as of this encounter [...] encounter Miscellaneous Notes * Telephone Encounter - Kan Pena angel - 02/18/2023 5:25 AM EDTSigned Prescriptions: Disp Refills Atorvastatin Calcium 20 MG Oral Tablet (Li*90 Tab*1 Sig: TAKE 1 TABLET BY MOUTH EVERY DAY IN THE MORNINGAuthorizing Provider: ROBERT COMBS User: KAN PENA metFORMIN HCl ER 500 MG Oral Tablet Extend*90 Tab*1 Sig: TAKE 1 TABLET BY MOUTH EVERY DAY INTHE MORNINGAuthorizing Provider: ROBERT COMBS User: KAN PENA documented in this encounter Plan of Treatment Upcoming Encounters Date Type Specialty Care Team Description 02/21/2023 Laboratory Laboratory [place], Lab [address] [place] [address] 02/22/2023 Hem/Onc Treatment Hematology Oncology [place], Chair 7 Hem Onc Scenery [address] [facility] [place] [place] [address] 02/28/2023 Telemedicine Nutrition Services Lynnette Nery Beverly, RDN [address] [place] [address] 03/06/2023 Laboratory Laboratory [place], Lab Scenery [address] [place] [address] 03/06/2023 Office Visit Hematology Oncology Scout Huddleston MD [address] [place] [address] 03/08/2023 Hem/Onc Treatment Hematology Oncology [place], Chair 7 Hem Onc Scenery [address] [place] [address] 03/12/2023 Office Visit Family Medicine Robert Combs MD [address] [place] [address] 04/30/2023 Office Visit Family Medicine Robert Combs MD [address] [place] [address] 09/19/2023 Office Visit Cardiology Prashant Ruiz, DO [address] [place] [address] Scheduled Procedures Name Priority Associated Diagnoses Date/Ti [...] FOR COPD 02/13/2024 02/15/2023 GFR 02/15/2024 02/14/2023, 12/27, 01/14/2023, Additional history exists Colonoscopy 07/06/2026 07/06/2016, [...] 08/29/2016 LUNG CANCER SCREENING - USE SMARTSET 18090 Completed 10/01/2017 Zoster Vaccines Completed 12/14/2019, 09/24, 02/16/2013 GARDASIL-HPV IMMUNIZATION SERIES Aged Out No longer eligible based on patient's age to complete this topic Hepatitis B Aged Out No longer eligi ble based on patient's age to complete this topic documented as of this encounter Medical Devices Implanted Type Area Second Time Worker Device Identifier Shelf Expiration Date Model / Serial / Lot Port Implant W/8f Poly Cath - [id number] Implanted:Qty : 1 on 02/12/2023 at [facility] Right: Chest CR BARD : PERIPHERAL VASCULAR [id number] 04/25/2024 [id number] / / [id number] documented as of this encounter Visit Diagnoses Diagnosis Dyslipidemia, goal LDL below 100 Other and unspecified hyperlipidemia Prediabetes Other abnormal glucose documented in this encounter Advance Directives Latest Code Status on File Code Status Date Activated Date Inactivated Comments Full Code 12/27/2022 3:40 PM 01/01/2023 8:39 PM This or aj reflects the patients wishes and were consensually agreed upon. Question Answer Comments Discussion of Advance Directives occurred with: Patient Care Teams Front Office Administrator Relationship Specialty Start Date End Date Robert Combs MD [address] [place] [address] PCP - General Family Medicine 07/02/18 documented as of this encounter
--- OUTSIDE RECORDS SUMMARY | 2023-05-22 14:55 | External Medical Summary | Summary of Care ---
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) Allergies Active Allergy Reactions Severity Noted Date Comments Lisinopril Cough Low 08/18/2009 documented as of this encounter (statuses as of 02/14/2023) Medications Medication Sig Dispensed Refills Start Date [...] as of this encounter (statuses as of 02/14/2023) Active Problems Problem Noted Date Gall bladder [...] as of this encounter (statuses as of 02/14/2023) Resolved Problems Problem Noted Date Resolved Date [...] as of this encounter (statuses as of 02/14/2023) Immunizations Name Administration Dates Next Due COVID-19 [...] Encounters Date Type Specialty Care Team Description 02/15/2023 Hem/Onc Treatment Hematology Oncology [place], Chair 4 Hem Onc Scenery [address] [place] [address] 02/28/2023 Telemedicine Nutrition Services Nery Church, RDN [address] [place], [place] [phone] 03/12/2023 Office Visit Family Medicine Chema Combs MD [address] [place] [address] 04/30/2023 Office Visit Family Medicine Chema Combs MD [address] [place] [address] 09/19/2023 Office Visit Cardiology Prashant Ruiz, DO [address] [place] [address] Pending Results Name Type Priority Associated Diagnoses Date /Time MYCODE SUBSEQUENT ADULT Lab Routine MyCode Research Other*[id number] 02/14/2023 9:25 AM EDT CBC WITH WBC DIFFERENTIAL Lab STAT Gall bladder disease 02/14/2023 9:25 AM EDT COMPREHENSIVE METABOLIC PANEL Lab STAT Gall bladder disease 02/14/2023 9:25 AM EDT TSH WITH FREE T4 IF INDICATED Lab STAT Gall bladder disease 02/14/2023 9:25 AM EDT MAGNESIUM Lab STAT 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) 02/14/2023 9:25 AM EDT MYCODE SST1 Lab Routine [employer] Other*[id number] 02/14/2023 9:25 AM EDT MYCODE SST2 Lab Routine [employer] Research Other*[id number] 02/14/2023 9:25 AM EDT CBC Lab STAT Gall bladder disease 02/14/2023 9:25 AM EDT DIFFERENTIAL, AUTOMATED Lab STAT Gall bladder disease 02/14/2023 9:25 AM EDT Scheduled Procedures Name Priority Associated [...] 12/11/2022, 06/28, 07/06/2021, Additional history exists GFR 01/25/2024 01/24/2023, 12/26, 01/01/2023, Additional history exists O2 ASSESSMENT COMPLETED IN PAST YEAR FOR COPD 02/13/2024 02/12/2023 Colonoscopy 07/06/2026 07/06/2016, 07/06/2016 Colorectal Cancer Screening [...] 08/29/2016 LUNG CANCER SCREENING - USE SMARTSET [id number] Completed 10/01/2017 Zoster Vaccines Completed 12/14/2019, 09/24, 02/16/2013 GARDASIL-HPV IMMUNIZATION SERIES Aged Out No longer eligible based on patient's age to complete this topic Hepatitis B Aged Out No longer eligi ble based on patient's age to complete this topic documented as of this encounter Medical Devices Implanted Type Area Filter Filler Device Identifier Shelf Expiration Date Model / Serial / Lot Port Implant W/8f Poly Cath - [id number] Implanted:Qty : 1 on 02/12/2023 at [facility] Right: Chest CR BARD : PERIPHERAL VASCULAR [id number] 04/25/2024 [id number] / / [id number] documented as of this encounter Visit Diagnoses Diagnosis [employer] Other*[id number] Gall bladder disease Unspecified disorder of gallbladder 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
--- OUTSIDE RECORDS SUMMARY | 2023-05-22 14:56 | External Medical Summary ---
Author Name Unknown Address Unknown Organization K01:[facility] [address] [place] [address] Laboratory Report Ordering Provider Test Date Status MARLON ORTEGA 02/14/2023 09:25:00 Final Observation Date Value Abnormality Reference (Units ) Status WBC, Total 02/14/2023 09:25:00 27.08 Above high normal 4.00-10.80 (K/uL) Final RBC 02/14/2023 09:25:00 4.61 4.50-5.25 (M/uL) Final Hemoglobin 02/14/2023 09:25:00 13.8 Below low normal 14.0-16.8 (g/dL) Final HCT 02/14/2023 09:25:00 44.1 40.0-48.4 (%) Final MCV 02/14/2023 09:25:00 95.7 82.0-99.5 (fL) Final MCH 02/14/2023 09:25:00 29.9 27.0-34.0 (pg) Final MCHC 02/14/2023 09:25:00 31.3 32.0-36.0 (g/dL) Final RDW 02/14/2023 09:25:00 14.6 11.5-15.5 (%) Final Platelets 02/14/2023 09:25:00 391 140-400 (K/uL) Final MPV 02/14/2023 09:25:00 10.0 6.6-11.1 (fL) Final Nucleated erythrocytes/100 leukocytes [Ratio] in Blood by Automated count 02/14/2023 09:25:00 0 <=0 (/100 WBCs) Final Performing Location [facility] [place] [address] [place] [address]
--- OUTSIDE RECORDS SUMMARY | 2023-05-22 14:56 | External Medical Summary | Summary of Care ---
Author Name Unknown Organization [facility] Address [address] [facility] [address] Phone [phone] Care Team Providers Care Operations Vice President Name Role Phone Chema Combs MD Primary Care Provider Reason for Visit * Reason Onset Date Comments Precert Approved 01/31/2023 [place] EMLA Encounter Details Date Type Department Care Team Description 01/30/2023 Telephone Hematology/Oncology Treatment, [place] [address] [place] [address] Scout Huddleston MD [address] [place] [address] Precert Approved ( HIPOLITO SOTOMAYOR) Allergies Active Allergy Reactions Severity Noted Date Comments Lisinopril Cough Low 08/18/2009 documented as of this encounter (statuses as of 01/31/2023) Medications Medication Sig Dispensed Refills Start Date End Date Status VITAMIN D 1000 UNITS PO CAPSIndications:Vi tamin D deficiency Take 2 Capsules by mouth in the morning. 60 Cap 11 05/14/2014 Active Acetaminophen 500 MG Capsule Take 2 Capsules by mouth every 6 hours as needed for Fever >38C(100.5F) or Pain, Mild. 0 Active aspirin enteric coated 81 MG TBEC Take 1 Tablet by mouth in the morning. 0 Active Fluticasone-Umecli din-Vilant 100-62.5-25 MCG/ACT Aerosol Powder Breath Activated Inhale 1 Puff by mouth in the morning. 0 Active allopurinol (ZYLOPRIM) 100 MG TabletIndications: Chronic leukemia in remission (HCC),Elevated blood uric acid [...] Oral Tablet Extended Release 24 Hour (Glucophage XR)Indications:Pre diabetes Take by mouth 1 Tablet in the morning. 90 Tablet 3 01/17/2022 Active Atorvastatin Calcium 20 MG Oral Tablet (Lipitor)Indicatio ns:Dyslipidemia, goal LDL below 100 Take by mouth 1 Tablet in the morning. 90 Tablet 3 01/17/2022 Active dilTIAZem HCl ER Coated Beads 120 MG Oral Capsule Extended Release 24 Hour (Cardizem CD)Indications:HTN , goal below 150/90,PAF (paroxysmal atrial fibrillation) ([facility]) TAKE 1 CAPSULE BY MOUTH EVERY DAY 90 Capsule 3 06/28/2022 Active Eliquis 5 MG Oral Tablet (Apixaban)Indicati ons:PAF (paroxysmal atrial fibrillation) (HCC) TAKE 1 TABLET BY MOUTH TWICE A DAY 180 Tablet 3 06/28/2022 Active Metoprolol Tartrate 50 MG Oral Tablet (Lopressor)Indicat ions:HTN, goal below 150/90,PAF (paroxysmal atrial fibrillation) (HCC) TAKE 1 TABLET BY MOUTH TWICE A DAY 180 Tablet 3 06/28/2022 Active oxyCODONE HCl 5 MG Oral Tablet (Oxy IR) Take 1 Tablet by mouth every 6 hours as needed for moderate pain 12 Tablet 0 01/01/2023 Active Additional Information Patient not taking.Reported on 01/07/2023 Furosemide 20 MG Oral Tablet (Lasix)Indications :Localized edema Take 1 Tablet by mouth in the morning. 90 Tablet 1 01/10/2023 Active Ondansetron HCl 8 MG Oral TabletIndications: Gall bladder disease Take 1 Tablet by mouth every 8 hours as needed for Nausea. 30 Tablet 0 01/16/2023 Active Prochlorperazine Maleate 10 MG Oral Tablet (Compazine)Indicat ions:Gall bladder disease Take 1 Tablet by mouth every 6 hours as needed for Nausea. 30 Tablet 0 01/16/2023 Active Lidocaine-Prilocai ne 2.5-2.5 % External Cream (Emla)Indications: Carcinoma of gall bladder (HCC) APPLY TO SKIN OVER MEDIPORT & COVER 1HR PRIOR TO ACCESSING. 30 g 1 01/24/2023 Active documented as of this encounter (statuses as of 01/31/2023) Active Problems Problem Noted Date Gall bladder [...] as of this encounter (statuses as of 01/31/2023) Resolved Problems Problem Noted Date Resolved Date [...] serious comorbidity 01/02/2012 11/20/2016 Overview: bmi= 35.69 8/8/12 ICD-10 update of inactive diagnosis Prediabetes 01/02/2012 [...] ONYCHOLYSIS 02/06/2008 06/16/2015 PVD (PERIPHERAL VASCULAR DISEASE) [facility] 02/06/2008 01/02/2012 Screening for prostate cancer 02/06/2008 Overview: Resolved per Screening Diagnosis Protocol #6 Tobacco use disorder 02/06/2008 01/02/2012 Osteoporosis 02/06/2008 06/16/2015 PAIN IN LIMB, LEFT DISTAL GREAT TOE 02/06/2008 06/16/2015 HTN, goal below 140/90 3 HTN, goal below 140/80 5 documented as of this encounter (statuses as of 01/31/2023) Immunizations Name Administration Dates Next Due COVID-19 mRNA, LNP-s, No Pre serve, 2-Dose Series (Moderna) 08/01/2020,06/30/2020 Covid-19 Mrna, Lnp-s, No Pre serve, Booster (Moderna) 06/07/2021 Meningococcal Conjugate Vacc ine (Menactra/Menveo) [...] Miscellaneous Notes * Telephone Encounter - KRYSTIN Lin - 01/31/2023 8:44 AM EDT New or re-auth: New authorization Approved/Denied: Approved Drug Name and Formulation: Lidocaine-Prilocaine 2.5-2.5 % External Cream How Prescribed(directions/sig): APPLY TO SKIN OVER MEDIPORT & COVER 1HR PRIOR TO ACCESSING Day Supply: 30 grams/30 days Did you receive insurance information from outside the chart? No, received insurance information within the chart Valid auth start date: 01/30/23 Valid auth end date: 01/30/23 Rx Insurance Info: Silver[employer] Rx Benefits Verified through/on date: 01/31/23 Referral (TE) received from: Prescribing Clinic Fela Tariq Medication Radiology Equipment Servicer P: [phone] F: [phone] 01/31/23,8:42 AM * Telephone Encounter - KRYSTIN Lin - 01/30/2023 12:30 PM EDT [facility] Authorization Submission Submission Information: Medication: Lidocaine-Prilocaine 2.5-2.5 % External Cream Portal used: [facility] Insurance: Silver[employer] Authorization #/Patel: [id number] Fela Tariq Medication Radiology Equipment Servicer P: [phone] F: [phone] 01/30/2023,12:30 PM * Telephone Encounter - Reyna Heard RN - 01/30/2023 12:00 PM EDT ICD-10: c23.0 Start date: 1 week Drugs: EMLA prescription Disp Refills Start End Lidocaine-Prilocaine 2.5-2.5 % External Cream (Emla) 30 g 1 01/24/2023 Sig: APPLY TO SKIN OVER MEDIPORT & COVER 1HR PRIOR TO ACCESSING. Physician: Dr Scout Huddleston SP Received fax from pharmacy that EMLA requires prior auth. documented in this encounter Plan of Treatment Upcoming Encounters Date Type Specialty Care Team Description 01/31/2023 Telemedicine Nutrition Services Nery Church, RDN [address] [place] [address] 02/12/2023 Appointment Radiology 03/12/2023 Office Visit Family Medicine Chema Combs MD [address] [place] [address] 04/30/2023 Office Visit Family Medicine Chema Combs MD [address] [place] [address] 09/19/2023 Office Visit Cardiology Prashant Ruiz, DO [address] [place] [address] Scheduled Procedures Name Priority Associated Diagnoses Date/Ti me COLONOSCOPY FLEXIBLE PROXIMA L DIAGNOSTIC Recall Encounter for screening colonoscopy Health Maintenance Due Date Last Done Comments Alpha-1 Antitrypsin 1968 Hepatitis C Screening 1968 Cologuard 1995 Fecal Occult Blood Test 1995 Sigmoidoscopy 1995 Albumin/Creatinine Ratio 06/19/2019 017, 12/13/2014, 03/17/2014, Additional history exists Depression Screening, Annual for Pts 12 and Over 04/14/2021 04/14/2020, 11/10/2014 COVID-19 Vaccine (4 - Moderna series) 08/02/2021 06/07/2021, 08/01/2020, 06/30/2020 Influenza Vaccine (FLU shot) (#1) 2023 04/06/2022, 02/24/2021, 04/13/2020, Additional history exists B-12 12/12/2023 12/11/2022 HbA1c 12/12/2023 12/11/2022, 06/28, 07/06/2021, Additional history exists O2 ASSESSMENT COMPLETED IN PAST YEAR FOR COPD 01/23/2024 01/22/2023 GFR 01/25/2024 01/24/2023, 12/26, 01/01/2023, Additional history exists Colonoscopy 07/06/2026 07/06/2016, 07/06/2016 [...] 08/29/2016 LUNG CANCER SCREENING - USE SMARTSET 46901 Completed 10/01/2017 Zoster Vaccines Completed 12/14/2019, 09/24, 02/16/2013 GARDASIL-HPV IMMUNIZATION SERIES Aged Out No longer eligible based on patient's age to complete this topic Hepatitis B Aged Out No longer eligi ble based on patient's age to complete this topic documented as of this encounter Medical Devices Not on filedocumented as of this encounter Advance Directives Latest Code Status on File Code Status Date Activated Date Inactivated Comments Full Code 12/27/2022 3:40 PM 01/01/2023 8:39 PM This or aj reflects the patients wishes and were consensually agreed upon. Question Answer Comments Discussion of Advance Directives occurred with: Patient Care Teams Operations Vice President Relationship Specialty Start Date End Date Chema Combs MD [address] [place], [place] [phone] PCP - General Family Medicine 07/02/18 documented as of this encounter
--- OUTSIDE RECORDS SUMMARY | 2023-05-22 14:56 | External Medical Summary | Summary of Care ---
Author Name Unknown Organization [facility] Address [address] [facility] [address] Phone [phone] Care Team Providers Care Engineer And Geologist Name Role Phone Chema Combs MD Primary Care Provider Reason for Visit * Reason Onset Date Comments Precert Approved 01/31/2023 [place] EMLA Encounter Details Date Type Department Care Team Description 01/30/2023 Telephone Hematology/Oncology Treatment, [place] [address] [place] [address] Scout Huddleston MD [address] [place] [address] Precert Approved ( HIPOLITO SOTOMAYOR) Allergies Active [...] , goal below 150/90,PAF (paroxysmal atrial fibrillation) ([facility]) TAKE 1 CAPSULE BY MOUTH EVERY DAY [...] ONYCHOLYSIS 02/06/2008 06/16/2015 PVD (PERIPHERAL VASCULAR DISEASE) [facility] 02/06/2008 01/02/2012 Screening for prostate cancer [...] within the chart Valid auth start date: 05/27/22 Valid auth end date: 04/30/23 Rx Insurance Info: [employer] Rx Benefits Verified through/on date: 01/31/23 Referral (TE) received from: Prescribing Clinic Fela Tariq Medication Pad Assembler P: [phone] F: [phone] 01/31/23,8:42 AM * Telephone Encounter - KRYSTIN Lin - 01/30/2023 12:30 PM EDT [facility] Authorization Submission Submission Information: Medication: Lidocaine-Prilocaine 2.5-2.5 % External Cream Portal used: [facility] Insurance: [employer] Authorization #/Patel: [id number] Fela Tariq Medication Pad Assembler P: [phone] F: [phone] 01/30/2023,12:30 PM * Telephone Encounter - Reyna [...] Telemedicine Nutrition Services Nery Church, RDN [address] [place] [address] 02/12/2023 Appointment Radiology 03/12/2023 Office Visit Family Medicine Chema Combs MD [address] [place] [address] 04/30/2023 Office Visit Family Medicine Chema Combs MD [address] [place] [address] 09/19/2023 Office Visit Cardiology Prashant Ruiz, DO [address] [place] [address] Scheduled Procedures Name Priority Associated Diagnoses Date/Ti [...] 08/29/2016 LUNG CANCER SCREENING - USE SMARTSET 69456 Completed 10/01/2017 Zoster Vaccines Completed 12/14/2019, 09/24, [...] Advance Directives occurred with: Patient Care Teams Engineer And Geologist Relationship Specialty Start Date End Date Chema Combs MD [address] [place], [place] [phone] PCP - General Family Medicine 07/02/18 documented as of this encounter
--- OUTSIDE RECORDS SUMMARY | 2023-05-22 14:56 | External Medical Summary | Summary of Care ---
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 Using real-time ultrasound guidance, the right internal jugular vein was punctured with a micro puncture needle. Digital ultrasound images were acquired and digitally archived. A wire and sheath were used to secure access to the internal jugular vein access. An 8 Fr catheter was tunneled subcutaneously through a second incision in the upper chest to the internal jugular access and advanced through a peel-away sheath and positioned under fluoroscopic guidance. The catheter was then measured to 26 cm, cut, and attached to a power injectable medical port. Once the medical port and catheter were in satisfactory position, the incision was closed with absorbable suture. The medical port was then accessed, had appropriate blood return, and easily flushed and was locked with dilute heparin. The port and venotomy sites were closed with surgical glue. The procedure was performed under the personal supervision of Dr. Issa Connolly who was present for the entire procedure. FINDINGS: Ultrasound shows an anechoic and compressible right internal jugular vein. The medical port is in the right upper chest with the catheter tip at the cavoatrial junction. 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 ATTENDING (OPERATING PHYSICIAN): Issa Connolly MD SCRUBBED RESIDENT (OPERATING PHYSICIAN): Barbara Ochoa MD SUPPORTING PROVIDER (RAW PRODUCTS DIRECTOR): RT. Kate CONSENT: After a detailed discussion of the procedure, risks, benefits andalternative treatment options, informed consent was obtained. TIME OUT: A time out procedure was performed. The patient's identificationwas verified. Informed consent with agreement of procedure, site andposition was obtained. All necessary equipment was available prior toprocedure. CONTRAST: No contrast was administered. COMPLICATIONS: None. ANESTHESIA: Local lidocaine. IV Versed. IV Fentanyl. SEDATION TIME: Start to end: from 8:32 AM to 9:12 AM. Qualified nursesedation observer Sadiq Paul RN. MEDICATIONS: See MAR PROCEDURE DESCRIPTION: The right neck and chest were prepped and draped inthe usual sterile fashion. Using real-time ultrasound guidance, the rightinternal jugular vein was punctured with a micro puncture needle. Digitalultrasound images were acquired and digitally archived. A wire and sheathwere used to secure access to the internal jugular vein access. An 8 Fr catheter was tunneled subcutaneously through a second incision inthe upper chest to the internal jugular access and advanced through apeel-away sheath and positioned under fluoroscopic guidance. The catheterwas then measured to 26 cm, cut, and attached to a power injectablemedical port. Once the medical port and catheter were in satisfactory position, theincision was closed with absorbable suture. The medical port was thenaccessed, had appropriate blood return, and easily flushed and was lockedwith dilute heparin. The port and venotomy sites were closed withsurgical glue. The procedure was performed under the personal supervision of Dr. Lee who was present for the entire procedure. FINDINGS: Ultrasound shows an anechoic and compressible right internal jugular vein.The medical port is in the right upper chest with the catheter tip at thecavoatrial junction. IMPRESSION IMPRESSION: Successful placement of a right chest power injectable medical port. PLAN: MediPort ready for immediate use. I have personally reviewed this examination and agree with the resident/fellow physician's interpretation. Scout Huddleston MD RAD SPECIAL PROC EDURES * Mediport Placement (02/12/2023 8:52 AM EDT) Narrative Issa Connolly MD - 02/12/2023 8:52 AM EDT Issa Connolly MD 02/12/2023 2:51 PM Mediport Placement General Information and Staff: Performed by: Issa Connolly MD Assisted by: Barbara Ochoa MD Procedure Date/Time: 02/12/2023 8:53 AM Patient Location: IR Indication: Chemotherapy/Stem cell reinfusion and alf vascular access Patient identity confirmed: Verbally with patient and arm band Verbal confirmation: MRN, name and date of Written consent obtained: Yes Consent given by: Patient Understanding of procedure being performed: Yes Understanding of procedure matches verbalized consent: Yes Procedure consent matches procedure scheduled: Yes Allergies reviewed: Yes Site marked: yes Verify correct position: Yes Radiology Studies available/reviewed: yes Relevant Lab Results available/reviewed: yes Required items available: yes Other healthcare professional(s) verbalize(s) agreement with time out: Yes Name(s): see timeout Time out: Immediately prior to the procedure a time out was completed Anticoagulation/Anti-platelet therapy: No Procedure Detail: Sterility Preparation: mask worn, sterile gloves worn, cap worn, sterile sheet used, sterile gown worn and full body drape Provider Hand Hygiene: antimicrobial soap and water Placement conditions: Elective Patient Position: Supine Prep: Chlorhexidine Local Anesthetic Used: Yes Catheter Type: Implanted Port Implanted Port Location: Chest Implanted Port Laterality: Right Power Port: Yes Other: Bard Powerport Clearvue isp Catheter size: 8 Fr. Catheter Total Length (cm): 26 Catheter Internal Length (cm): 26 Catheter External Length (cm): 0 Lot Number: [id number], Exp. 04/25/2024 Number of Lumens: Single lumen Number of Needle Passes: 1 Placement: target vein identified, needle advanced into vein and blood aspirated and guidewire advanced into vein Radiologic Support with Sterile Technique: ultrasound guidance used and live fluoroscopy Sterile gel and probe cover used for ultrasound?: Yes Intravenous Verification: live fluoroscopy Outcomes/Complications: patient tolerated procedure well with no complications Estimated blood loss: minimal. 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)- Primary Chronic lymphoid leukemia, without mention of having achieved remission documented in this encounter Administered Medications Inactive Administered Medications - up to 3 most recent administrations Medication Order MAR Action Action Date Dose Rate Site buffered lidocaine 1 % inj Intradermal, ONCE PRN INTRA PROCEDURE, Starting on Sat02/12/23 at 0846, Until Sat02/12/23 at 0846, Intra-Op Given 02/12/2023 8:46 AM EDT 19 mL ceFAZolin (Ancef) inj ONCE PRN INTRA PROCEDURE, Starting on Sat02/12/23 at 0848, Until Sat02/12/23 at 0848, Intra-Op Given 02/12/2023 8:48 AM EDT 2 g fentaNYL (PF) inj ONCE PRN INTRA PROCEDURE, Starting on Sat02/12/23 at 0832, Until Sat02/12/23 at 0848, Intra-Op Given 02/12/2023 8:48 AM EDT 50 mcg Given 02/12/2023 8:32 AM EDT 50 mcg hEParin 100 UNIT/ML Lock Flush inj ONCE PRN INTRA PROCEDURE, Starting on Sat02/12/23 at 0852, Until Sat02/12/23 at 0852, Intra-Op Given 02/12/2023 8:52 AM EDT 5 mL midazolam (Versed) 2 MG/2ML inj ONCE PRN INTRA PROCEDURE, Starting on Sat02/12/23 at 0832, Until Sat02/12/23 at 0844, Intra-Op Given 02/12/2023 8:44 AM EDT 1 mg Given 02/12/2023 8:32 AM EDT 1 mg documented in this encounter Active and Recently Administered Medications Times are shown in EDT. PRN Medication Order 02/10/2023 02/11/2023 02/12/2023 buffered lidocaine 1 % inj (COMPLETED) Intradermal, ONCE PRN INTRA PROCEDURE, Starting on Sat02/12/23 at 0846, Until Discontinued, Intra-Op 0846 (Given - Provid er: Barbara Ochoa MD) ceFAZolin (Ancef) inj (COMPLETED) ONCE PRN INTRA PROCEDURE, Starting on Sat02/12/23 at 0848, Until Discontinued, Intra-Op 0848 (Given - Provid er: Sadiq Paul RN) fentaNYL (PF) inj (COMPLETED) ONCE PRN INTRA PROCEDURE, Starting on Sat02/12/23 at 0832, Until Discontinued, Intra-Op 0832 (Given - Provid er: Sadiq Paul RN)0848 (Given - Provider: Sadiq Paul RN) hEParin 100 UNIT/ML Lock Flush inj (COMPLETED) ONCE PRN INTRA PROCEDURE, Starting on Sat02/12/23 at 0852, Until Discontinued, Intra-Op 0852 (Given - Provid er: aBrbara Ochoa MD - Comment: Mediport Lock during procedure.) midazolam (Versed) 2 MG/2ML inj (COMPLETED) ONCE PRN INTRA PROCEDURE, Starting on Sat02/12/23 at 0832, Until Discontinued, Intra-Op 0832 (Given - Provid er: Sadiq Paul RN)0844 (Given - Provider: Sadiq Paul RN) documented in this encounter Advance Directives Latest Code Status on File Code Status Date Activated Date Inactivated Comments Full Code 12/27/2022 3:40 PM 01/01/2023 8:39 PM This or aj reflects the patients wishes and were consensually agreed upon. Question Answer Comments Discussion of Advance Directives occurred with: Patient Care Teams Toddler Lead Teacher Relationship Specialty Start Date End Date Chema Combs MD [address] [place] [address] PCP - General Family Medicine 07/02/18 documented as of this encounter
--- OUTSIDE RECORDS SUMMARY | 2023-05-22 14:56 | External Medical Summary | Summary of Care ---
Author Name Unknown Organization [facility] Address [address] [place] [address] Phone [phone] Care Team Providers Care Architectural Representative Name Role Phone Chema Combs MD Primary Care Provider [phone] Reason for Visit * Reason Comments Medical Nutrition Therapy * Evaluate & Treat - Unlimited Visits (Within 10 days (routine)) - Pending Review Specialty Diagnoses / Procedures Referred By Contac t Referred To Contact Dietitian / Nutrition Services Diagnoses Carcinoma of gall bladder (HCC) Scout Huddleston MD [address] [place] [address] Referral ID Status Reason Start Date Expiration Date Visits Requested Visits Authorized [id number] Pending Review Specialty Services Required 01/24/[phone] Encounter Details Date Type Department Care Team Description 01/31/2023 [facility] Nutrition Services[address] [address] Nery Church, [place] [address] [place], [place] [id number] Carcinoma of gallbladder (HCC)*; Severe protein-energy malnutrition (HCC); Carcinoma of gall bladder (HCC) [C23 (ICD-10-CM)] Allergies Active Allergy Reactions Severity Noted Date [...] , goal below 150/90,PAF (paroxysmal atrial fibrillation) (HCC) [...] ONYCHOLYSIS 02/06/2008 06/16/2015 PVD (PERIPHERAL VASCULAR DISEASE) [facility] 02/06/2008 01/02/2012 Screening for prostate [...] as of this encounter Progress Notes * Nery Church, RDN - 01/31/2023 10:52 AM EDT NUTRITION CONSULT - OUTPATIENT [facility] Name: Jh Cortez Donnie Brooks Location: [facility] Date: 01/31/2023 Time: 10:52 AM Patient was identified by name and date. Patient location: HOME. I was in a hospital or clinic location. After connecting through [place], patient was verified with two unique identifiers. Patient (or authorized legal manufacturer's representative) wasthen informed that this was a Telemedicine visit and being conducted confidentially over secure lines. Methods to assure confidentiality were taken. Patient acknowledged consent and understanding of privacy and security of the Telemedicine visit. The patient agreed to participate. Reason for Referral: Cancer NUTRITION ASSESSMENT: Client History Ronni was recently diagnosed with gallbladder cancer. PMH significant for mild COPD, chronic 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 (diagnosed in 2007). Is going to undergo mediport placement on 01/12. Plan = chemotherapy regimen of gemcitabine plus cisplatin and durvalumab. Hematology/Oncology note from 01/22 states that because of underlying comorbidcondition, he will be at significant risk for toxicity and side effects from the treatment. Was hospitalized at [facility] in December. Had no problems with eating until this hospitalization. During this hospitalization, was given roast beef with gravy that caused abdominal pain that resulted in patient receiving morphine. Received low-fat diet information at time of discharge. For a while, was trying to follow a low-fat diet. He and his have slowly figured out that greasy foods bother him the most. [place] foods cause sharp pains in abdominal area. Gravy has bothered him. He is avoiding sausage and aranda due to thinking that these foods may cause the abdominal pain. Is on continuous oxygen. Support System: Spouse -, Shirley Barriers To Learning: None Special Education Needs: None Food/Nutrition-Related History Describes typical diet history/24 hr recall: Breakfast: Today - 2 pieces toast with butter and jelly, decaf sweetened iced tea. On other days, may eat a bowl of cold cereal with 2% milk or cream of wheat. Frequently eats gelatin as part of this meal. Snacks: Occasionally - popcorn or crackers with jelly, iced tea or Coke or gingerale Lunch: No yolk noodles with beef broth or macaroni with milk and butter, iced tea or gingerale Snacks: Sometimes - Tollhouse cookies or popcorn, iced tea or Coke or gingerale. Dinner: May eat the same foods as at lunch. bought very lean ground beef and Ronni was able to eat a hamburger made from this meat. Was recently able to tolerate a piece of pizza and a hot dog. Snacks: Gelatin or popcorn or saltines with jelly or ice cream Drinks: Decaf sweetened iced tea, 2% milk, Coke, gingerale, Gatorade Restaurant meals: rare Alcohol: None Tobacco Use: No Diet Recall/Food Logs Indicate: AREAS FOR IMPROVEMENT: Inadequate calorie intake POSITIVE: Good meal distribution Food allergies and/or food intolerances: None Pertinent Medications (Current): Current Outpatient Medications Medication Sig Dispense Refill VITAMIN D 1000 UNITS PO CAPS Take 2 Capsules by mouth in the morning. 60 Cap 11 Acetaminophen 500 MG Capsule Take 2 Capsules by mouth every 6 hours as needed for Fever >38C(100.5F) or Pain, Mild. aspirin enteric coated 81 MG TBEC Take 1 Tablet by mouth in the morning. Hqpjomxgiht-Aahlvjuqm-Evrsou 100-62.5-25 MCG/ACT Aerosol Powder Breath Activated Inhale [...] needed for Wheezing or Shortness of Breath. metFORMIN HCl ER 500 MG Oral Tablet Extended Release 24 Hour (Glucophage XR) Take by mouth 1 Tabletin the morning. 90 Tablet 3 Atorvastatin Calcium 20 MG Oral Tablet (Lipitor) Take by mouth 1 Tablet in the morning. 90 Tablet 3 dilTIAZem HCl ER Coated Beads 120 MG Oral Capsule Extended Release 24 Hour (Cardizem CD) TAKE 1 CAPSULE BY MOUTH EVERY DAY 90 Capsule 3 Eliquis 5 MG Oral Tablet (Apixaban) TAKE 1 TABLET BY MOUTH TWICE A DAY 180 Tablet 3 Metoprolol Tartrate 50 MG Oral Tablet (Lopressor) TAKE 1 TABLET BY MOUTH TWICE A DAY 180 Tablet 3 oxyCODONE HCl 5 MG Oral Tablet (Oxy IR) Take 1 Tablet by mouth every 6 hours as needed for moderatepain (Patient not taking: Reported on 01/07/2023) 12 Tablet 0 Furosemide 20 MG Oral Tablet (Lasix) Take [...] 1HR PRIOR TO ACCESSING. 30 g 1 No current facility-administered medications for this visit. Supplements: None Prior Nutrition Counseling: No prior counseling Physical Activity: Light - Reports that energy level has increased. Has mowed the lawn on riding mower. Uses motorized scooter. Anthropometric Measurements Weight: 224 lb measured home scale today Weight History: 01/17/22: 273.8 lb 07/24/22: 257 lb 12/18/22: 242 lb Weight Change: Decreased by 18 lb (7.4%) in the past month, 33 lb (12.8%) in the past 6 months and 44.2 lb (16.1%) in the past year. Interpretation of weight change: greater than 5% weight loss in 1 month (severe), greater than 7.5%weight loss in 3 months Weight Goal: Maintain current weight BMI: BMI Readings from Last 1 Encounters: 01/22/23 31.14 kg/m Nutrition-Focused Physical Findings Overall appearance: Unable to assess due to not being able to see patient during telemedicine visit. Fluid accumulation: Fluid Assessment: Normal per patient report Fluid Location: N/A Fluid Description: N/A Digestive system: Abdominal pain/tenderness, Appetite: fair, Constipation, Dry mucus membranes, xerostomia, Early satiety Enteral Access: N/A Nerves and cognition: Awake, alert and Oriented Nutritionally significant wound burden: Intact Biochemical Data, Medical Tests, and Procedures Reviewed. No biochemical abnormalities present that indicate need for change in nutritional plan ofcare. NUTRITION DIAGNOSIS Food and nutrition-related knowledge deficit related to nutritional management of decreased appetite due to cancer diagnosis as evidenced by patient interview. Malnutrition severe related to acute illness as evidenced by PO intake < 75% of estimated needs for > 7 days, weight loss of >5% in the past month and weight loss of >7.5% in the past 3 months. NUTRITION INTERVENTION: NUTRITION EDUCATION Comprehensive nutrition education NUTRITION COUNSELING Strategies Good Nutrition Education: Nutrition Therapy for Loss of Appetite Nutrition Prescription: Diet: High calorie/High protein Current weight = 101.8 kg (224 lb) 30-35 Kcal/kg Current weight/day = 4125-2584 Kcal/day 1.5-2.0 grams protein/kg Current weight/day = 153-204 grams protein/day Fluid Needs: 30 mL/kg Current weight/ day = 3054 ml Goals: Aim to eat 5-6 small meals daily. Drink [place] Breakfast Essentials 1-2 times daily. Dietitian Action: Evaluated current weight status, PO intake, digestive issues associated with cancer treatment. Assessed if patient had nutritional questions/concerns to be addressed. Assisted patient in setting nutrition- focused goals for next follow up appointment. Recommendations to Ordering Provider: Continue current plan of nutrition care. NUTRITION MONITORING AND EVALUATION: The following will be monitored and evaluated at the next visit: Monitor weight. Monitor labs. Monitor goals and progress. Monitor PO intake. Monitor activity level. Plan:Patient scheduled to return in 1 month; dietitian phone # given for future reference. 60 minutes Medical Nutrition Therapy 15 min (8-22 min) 30 min (23-37 min) 45 min (38-52 min) 60 min (53-67 min) 75 min (68-82 min) 90 min (83-97 min) 105 min (98-113 min) Time In: 1047 (01/31/23 151) Time Out: 1145 (01/31/231511) Nery Church RDN [facility] Clinical Nutrition [facility]: Radiation Oncology Department [address] [place] [address] [email or web address] Available via [place] Text documented in this encounter Plan of Treatment Upcoming Encounters Date Type Specialty Care Team Description 02/12/2023 Appointment Radiology 02/28/2023 Telemedicine Nutrition Services Nery Church RDN [address] [place] [address] 03/12/2023 Office Visit Family Medicine Chema Combs MD [address] [place] [address] 04/30/2023 Office Visit Family Medicine Chema Combs MD [address] [place] [address] 09/19/2023 Office Visit Cardiology Prashant Ruiz, DO [address] [address] Scheduled Procedures Name Priority Associated Diagnoses Date/Ti me COLONOSCOPY FLEXIBLE PROXIMA L DIAGNOSTIC Recall Encounter for screening colonoscopy Scheduled Referrals Name Type Priority Associated Diagnoses Orde r Schedule NUTRITION-CLINICAL DIETITIAN REFERRAL OP Referral Within 10 days (routine) Carcinoma of gall bladder (HCC) Ordered: 01/24/2023 Health Maintenance Due Date Last Done Comments [...] 08/29/2016 LUNG CANCER SCREENING - USE SMARTSET [id number] Completed 10/01/2017 Zoster Vaccines Completed 12/14/2019, 09/24, 02/16/2013 GARDASIL-HPV IMMUNIZATION SERIES Aged Out No longer eligible based on patient's age to complete this topic Hepatitis B Aged Out No longer eligi ble based on patient's age to complete this topic documented as of this encounter Medical Devices Not on filedocumented as of this encounter Visit Diagnoses Diagnosis Carcinoma of gallbladder (HCC)- Primary Malignant neoplasm of gallbladder Severe protein-energy malnutrition (HCC) Other severe protein-calorie malnutrition Carcinoma of gall bladder (HCC) [C23 (ICD-10-CM)] Malignant neoplasm of gallbladder documented in this encounter Advance Directives Latest Code Status on File Code Status Date Activated Date Inactivated Comments Full Code 12/27/2022 3:40 PM 01/01/2023 8:39 PM This or aj reflects the patients wishes and were consensually agreed upon. Question Answer Comments Discussion of Advance Directives occurred with: Patient Care Teams Architectural Representative Relationship Specialty Start Date End Date Chema Combs MD [address] [place] [address] PCP - General Family Medicine 07/02/18 documented as of this encounter
--- OUTSIDE RECORDS SUMMARY | 2023-05-22 14:56 | External Medical Summary ---
Author Name Unknown Address Unknown Organization K01:[facility] - [address] [place] [id number] Laboratory Report Ordering Provider Test Date Status DELIO GOLD 02/14/2023 09:25:00 Final Observation Date Value Abnormality Reference (Units ) Status MYCODE SPECIMEN-SST 02/14/2023 09:25:00 Freezing of extracted DNA, whole blood and/or serum. Final Performing Location [facility] - [address] [place] [id number]
--- OUTSIDE RECORDS SUMMARY | 2023-05-22 14:56 | External Medical Summary | Summary of Care ---
Author Name Unknown Organization [facility] Address [address] [facility] [place] [address] Phone [phone] Care Team Providers Care Special Forces Specialist Name Role Phone Chema Combs MD Primary Care Provider Reason for Visit * Reason Onset Date Comments Precert Future 01/16/2023 GEMZAR, CISPLATI N, IMFINZI, EMEND Encounter Details Date Type Department Care Team Description 01/16/2023 Telephone Hematology/Oncology Treatment, [place] [address] [facility] [place] [address] Scout Huddleston MD [address] [place] [address] Precert Future (GEMZAR, CISPLATIN, IMFINZI... Allergies Active Allergy Reactions Severity Noted Date [...] for Nausea. 30 Tablet 0 01/16/2023 Active documented as of this encounter (statuses [...] * Telephone Encounter - KRYSTIN Bonilla - 01/31/2023 8:54 AM EDT Called and lmom for patient. * Telephone Encounter - Reyna Heard RN - 01/30/2023 4:23 PM EDT Port placement 02/12/23. Scheduling: please call patient to schedule for after this date - labs "CBCd, CMP, mag, TSH/T4"- ok to do day prior if patient prefers - 503 schedule for 7 hour appt "C1D1 imfinzi, cisplatin, gemzar" ([facility]) Thanks! * Telephone Encounter - Reyna Heard RN - 01/22/2023 11:11 AM EDT Patient saw Dr Huddleston, is proceeding with treatment. Nurse education 01/24/23. * Telephone Encounter - Maria T Wood RN - 01/17/2023 10:30 AM EDT Patient seeing [facility] on Saturday to review other options, canceling nurse education visit on 01/21 Unsure of chemo * Telephone Encounter - Maria T Wood RN - 01/17/2023 9:25 AM EDT Referral entered. Dr Huddleston states that a hearing screen is not indicated because it is low dose cisplatin. Reviewed with Dr Huddleston- Durvulumab is to be given every 3 weeks, no lasix, no pre hydration, cisplatin mixed in 500 ml. Need to review with patient when comes for education if he is getting a port. No order placed. Elio: I am unable to add Imfinzi (Durvulumab) to day 1 in each cycle. Please add. Elio: Please also order imfinizi and let us know when it is in stock. * Telephone Encounter - Maria T Wood RN - 01/16/2023 10:56 AM EDT Images from the original note were not included. [place] plan built for [id number] Alteration needs updated to follow guidelines, imfinzi every 3 weeks with concurrent gem/cis treatment. Will need to have pharmacy add imfinzi to plan and have them order. Lasix? Port? Nurse visit on 01/21. Dr Huddleston: 3 things- Do you want lasix? Is he getting a port? Please see uptodate guidelines, patient should receive imfinzi 1500 mg once every 3 weeks in combo with gem/cis. Please place new altreation. We need an updated dx code. Indicating cancer. documented in this encounter Plan of Treatment Upcoming Encounters Date Type Specialty Care Team Description 01/31/2023 Telemedicine Nutrition Services Nery Church, RDN [address] [place] [address] 02/12/2023 Appointment Radiology 03/12/2023 Office Visit Family Chema Moran MD [address] [place] [address] 04/30/2023 Office Visit Family Chema Moran MD [address] [place] [address] 09/19/2023 Office Visit Cardiology Prashant Ruiz, DO [address] [place] [address] Scheduled Procedures Name Priority Associated Diagnoses Date/Ti [...] 08/29/2016 LUNG CANCER SCREENING - USE SMARTSET 37846 Completed 10/01/2017 Zoster Vaccines Completed 12/14/2019, 09/24, 02/16/2013 GARDASIL-HPV IMMUNIZATION SERIES Aged Out No longer eligible based on patient's age to complete this topic Hepatitis B Aged Out No longer eligi ble based on patient's age to complete this topic documented as of this encounter Medical Devices Not on filedocumented as of this encounter Results * HEPATITIS B SURFACE ANTIBODY (01/24/2023 10:39 AM EDT) Hepatitis B Surface Antibody, Quantitative <3.5 mIU/mL 01/24/2023 8:17 PM EDT LABORATORY [facility] Hepatitis B Surface Antibody, Qualitative Negative 01/24/2023 8:17 PM EDT LABORATORY [facility] Hepatitis B Surface Antibody, Interpretation NOT immune to Hepatitis B Virus 01/24/2023 8:17 PM EDT LABORATORY [facility] Comment: POSITIVE: >=11.5 mIU/mL INDETERMINATE: 8.5-<11.5 mIU/mL NEGATIVE: <8.5 mIU/mL Blood Venous blood specimen / Unknown Venipuncture / Unknown 01/24/2023 10:39 AM EDT 01/24/2023 10:39 AM EDT Scout Huddleston MD LAB BLOOD ORDERA BLES LABORATORY [facility] [address] [place] [address] * HEPATITIS B CORE ANTIBODIES IGG AND IGM (01/24/2023 10:39 AM EDT) Hepatitis B Core Antibodies IgG and IgM Negative Negative 01/24/2023 8:17 PM EDT LABORATORY [facility] Blood Venous blood specimen / Unknown Venipuncture / Unknown 01/24/2023 10:39 AM EDT 01/24/2023 10:39 AM EDT Scout Huddleston MD LAB BLOOD ORDERA BLES LABORATORY [facility] [address] [place] [address] * HEPATITIS B SURFACE ANTIGEN (01/24/2023 10:39 AM EDT) Hepatitis B Surface Antigen Negative Negative 01/24/2023 8:17 PM EDT LABORATORY [facility] Blood Venous blood specimen / Unknown Venipuncture / Unknown 01/24/2023 10:39 AM EDT 01/24/2023 10:39 AM EDT Scout Huddleston MD LAB BLOOD ORDERA BLES LABORATORY [facility] [address] [place] [address] documented in this encounter Visit Diagnoses Diagnosis Special screening examination for viral disease- Primary Special screening examination for unspecified viral disease documented in this encounter Advance Directives Latest Code Status on File Code Status Date Activated Date Inactivated Comments Full Code 12/27/2022 3:40 PM 01/01/2023 8:39 PM This or aj reflects the patients wishes and were consensually agreed upon. Question Answer Comments Discussion of Advance Directives occurred with: Patient Care Teams Special Forces Specialist Relationship Specialty Start Date End Date Chema Combs MD [address] [place] [address] PCP - General Family Medicine 07/02/18 documented as of this encounter
--- OUTSIDE RECORDS SUMMARY | 2023-05-22 14:56 | External Medical Summary | Summary of Care ---
Author Name Unknown Organization [facility] Address [address] [place] [facility] [place] [address] Phone [phone] Care Team Providers Care Auto Body Repairer Name Role Phone Chema Combs MD Primary Care Provider [phone] Reason for Visit * Reason Onset Date Comments Precert Future 01/16/2023 GEMZAR, CISPLATI N, IMFINZI, EMEND Encounter Details Date Type Department Care Team Description 01/16/2023 Telephone Hematology/Oncology Treatment, [place] [address] [facility] [place] [address] Scout Huddleston MD [address] [place] [address] Precert Future (GEMZAR, CISPLATIN, IMFINZI... Allergies Active Allergy Reactions Severity Noted Date Comments Lisinopril Cough Low 08/18/2009 documented as of this encounter (statuses as of 02/01/2023) Medications Medication Sig Dispensed Refills Start Date [...] as of this encounter (statuses as of 02/01/2023) Active Problems Problem Noted Date Gall bladder [...] as of this encounter (statuses as of 02/01/2023) Resolved Problems Problem Noted Date Resolved Date [...] as of this encounter (statuses as of 02/01/2023) Immunizations Name Administration Dates Next Due COVID-19 [...] * Telephone Encounter - KRYSTIN Bonilla - 02/01/2023 2:24 PM EDT Called [facility]2. Spoke to patient and he is scheduled for treatment for 02/15/23. With lab work day prior. * Telephone Encounter - KRYSTIN Bonilla - [...] from the original note were not included. [place] plan built for [id number] Alteration needs updated to follow guidelines, imfinzi [...] Specialty Care Team Description 02/12/2023 Appointment Radiology 02/14/2023 Laboratory [facility] [place], [address] [place] [address] 02/15/2023 Hem/Onc Treatment Hematology [place], [address] [facility] [place] [address] 02/28/2023 Telemedicine Nutrition Services Nery Church, RDN [address] [place] [address] 03/12/2023 Office Visit Family Medicine Chema Combs MD [address] [place] [address] 04/30/2023 Office Visit Family Medicine Chema Combs MD [address], [place] [phone] 09/19/2023 Office Visit Cardiology Prashant Ruiz, DO [address] [place] [address] Scheduled Procedures Name Priority Associated Diagnoses Date/Ti [...] exists B-12 12/12/2023 12/11/2022 HbA1c 12/12/2023 12/11/2022, /07/2022, 07/06/2021, Additional history exists O2 ASSESSMENT COMPLETED [...] 08/29/2016 LUNG CANCER SCREENING - USE SMARTSET 29761 Completed 10/01/2017 Zoster Vaccines Completed 12/14/2019, 09/24, [...] <3.5 mIU/mL 01/24/2023 8:17 PM EDT [facility] Hepatitis B Surface Antibody, Qualitative Negative 01/24/2023 8:17 PM EDT [facility] Hepatitis B Surface Antibody, Interpretation NOT immune to Hepatitis B Virus 01/24/2023 8:17 PM EDT [facility] Comment: POSITIVE: >=11.5 mIU/mL INDETERMINATE: 8.5-<11.5 mIU/mL NEGATIVE: <8.5 mIU/mL Blood Venous blood specimen / Unknown Venipuncture / Unknown 01/24/2023 10:39 AM EDT 01/24/2023 10:39 AM EDT Scout Huddleston MD LAB BLOOD ORDERA BLES Performing Organization Address [facility] Co de Phone Number LABORATORY [facility] [place] [place] [address] [place] [address] * HEPATITIS B CORE ANTIBODIES IGG AND IGM (01/24/2023 10:39 AM EDT) Hepatitis B Core Antibodies IgG and IgM Negative Negative 01/24/2023 8:17 PM EDT [facility] Blood Venous blood specimen / Unknown Venipuncture / Unknown 01/24/2023 10:39 AM EDT 01/24/2023 10:39 AM EDT Scout Huddleston MD LAB BLOOD ORDERA BLES Performing Organization Address [facility] Co de Phone Number LABORATORY [facility] [place] [address] [place] [address] * HEPATITIS B SURFACE ANTIGEN (01/24/2023 10:39 AM EDT) Hepatitis B Surface Antigen Negative Negative 01/24/2023 8:17 PM EDT [facility] Blood Venous blood specimen / Unknown Venipuncture / Unknown 01/24/2023 10:39 AM EDT 01/24/2023 10:39 AM EDT Scout Huddleston MD LAB BLOOD ORDERA BLES Performing Organization Address [facility] Co de Phone Number LABORATORY [facility] [place] [place] [address] [place] [address] documented in this encounter Visit Diagnoses Diagnosis [...] Advance Directives occurred with: Patient Care Teams Auto Body Repairer Relationship Specialty Start Date End Date Chema Combs MD [address] [place] [address] PCP - General Family Medicine 07/02/18 documented as of this encounter
--- OUTSIDE RECORDS SUMMARY | 2023-05-22 14:56 | External Medical Summary ---
Author Name Unknown Address Unknown Organization K01:LABORATORY [facility] [place] - [address] [address] Laboratory Report Ordering Provider Test Date Status MARLON ORTEGA 02/14/2023 09:25:00 Final Observation Date Value Abnormality Reference (Units ) Status TSH 02/14/2023 09:25:00 2.20 0.27-4.20 (uIU/mL) Final Performing Location LABORATORY [facility] - [address] [place] [address]
--- OUTSIDE RECORDS SUMMARY | 2023-05-22 14:56 | External Medical Summary ---
Author Name Unknown Address Unknown Organization K01:LABORATORY [facility] - [address] [facility] [address] Laboratory Report Ordering Provider Test Date Status ORTEGAKAYMARLON 02/14/2023 09:25:00 Final Observation Date Value Abnormality Reference (Units ) Status SYNC LEUKOCYTES IN BLOOD BY AUTOMATED COUNT 02/14/2023 09:25:00 27.08 Above high normal 4.00-10.80 (K/uL) Final Neutrophils/100 leukocytes in Blood by Manual count 02/14/2023 09:25:00 24.0 Below low normal 40.0-75.0 (%) Final Lymphocytes/100 leukocytes in Blood by Manual count 02/14/2023 09:25:00 72.0 Above high normal 18.0-42.0 (%) Final Monocytes/100 leukocytes in Blood by Manual count 02/14/2023 09:25:00 2.0 1.0-11.0 (%) Final Eosinophils/100 leukocytes in Blood by Manual count 02/14/2023 09:25:00 2.0 0.0-6.0 (%) Final Neutrophils [#/volume] in Blood by Manual count 02/14/2023 09:25:00 6.50 1.80-7.70 (K/uL) Final Lymphocytes [#/volume] in Blood by Manual count 02/14/2023 09:25:00 19.50 Above high normal 1.00-4.80 (K/uL) Final Monocytes [#/volume] in Blood by Manual count 02/14/2023 09:25:00 0.54 0.00-1.10 (K/uL) Final Eosinophils [#/volume] in Blood by Manual count 02/14/2023 09:25:00 0.54 0.00-0.70 (K/uL) Final Variant lymphocytes [Presence] in Blood by Light microscopy 02/14/2023 09:25:00 Present Abnormal None Seen Final Smudge cells [Presence] in Blood by Light microscopy 02/14/2023 09:25:00 Present Abnormal None Seen Final Performing Location [facility] - [address] [place] [place] [address]
--- OUTSIDE RECORDS SUMMARY | 2023-05-22 14:56 | External Medical Summary | Summary of Care ---
Author Name Unknown Organization [facility] Address [address] [place] [facility] [place] [address] Phone [phone] Care Team Providers Care Outreach Specialist Name Role Phone Chema Combs MD Primary Care Provider Reason for Visit * Reason Onset Date Comments Precert Future 01/16/2023 GEMZAR, CISPLATI N, IMFINZI, EMEND Encounter Details Date Type Department Care Team Description 01/16/2023 Telephone Hematology/Oncology Treatment, [place] [address] [facility] [place] [address] Scout Huddleston MD [address] [place] [address] Precert Future (GEMZAR, CISPLATIN, IMFINZI... Allergies Active Allergy Reactions Severity Noted Date Comments Lisinopril Cough Low 08/18/2009 documented as of this encounter (statuses as of 01/30/2023) Medications Medication Sig Dispensed Refills Start Date [...] as of this encounter (statuses as of 01/30/2023) Active Problems Problem Noted Date Gall bladder [...] as of this encounter (statuses as of 01/30/2023) Resolved Problems Problem Noted Date Resolved Date [...] as of this encounter (statuses as of 01/30/2023) Immunizations Name Administration Dates Next Due COVID-19 [...] encounter Miscellaneous Notes * Telephone Encounter - Reyna Heard RN [...] from the original note were not included. [place] plan built for [id number] Alteration needs updated to follow guidelines, imfinzi [...] Telemedicine Nutrition Services Nery Church, RDN [address] [place] [address] 02/12/2023 Appointment Radiology 03/12/2023 Office Visit Family Medicine Chema Combs MD [address] [place] [address] 04/30/2023 Office Visit Family Medicine Chema Combs MD [address] [place] [address] 09/19/2023 Office Visit Cardiology Prashant Ruiz DO [address] [place] [address] Scheduled Procedures Name Priority Associated Diagnoses Date/Ti [...] 08/29/2016 LUNG CANCER SCREENING - USE SMARTSET [id number] Completed 10/01/2017 Zoster Vaccines Completed 12/14/2019, 09/24, [...] <3.5 mIU/mL 01/24/2023 8:17 PM EDT LABORATORY [facility] Hepatitis B Surface Antibody, Qualitative Negative 01/24/2023 8:17 PM EDT LABORATORY [facility] Hepatitis B Surface Antibody, Interpretation NOT immune to Hepatitis B Virus 01/24/2023 8:17 PM EDT LABORATORY [facility] Comment: POSITIVE: >=11.5 mIU/mL INDETERMINATE: 8.5-<11.5 mIU/mL NEGATIVE: <8.5 mIU/mL Blood Venous blood specimen / Unknown Venipuncture / Unknown 01/24/2023 10:39 AM EDT 01/24/2023 10:39 AM EDT Scout Huddleston MD LAB BLOOD ORDERA BLES Performing Organization Address City/[facility] Co de Phone Number LABORATORY [facility] [address] [place] [address] * HEPATITIS B CORE ANTIBODIES IGG AND IGM (01/24/2023 10:39 AM EDT) Pathologist [facility] [place] Hepatitis B Core Antibodies IgG and IgM Negative Negative 01/24/2023 8:17 PM EDT LABORATORY [facility] Blood Venous blood specimen / Unknown Venipuncture / Unknown 01/24/2023 10:39 AM EDT 01/24/2023 10:39 AM EDT Scout Huddleston MD LAB BLOOD ORDERA BLES Performing Organization Address City/[facility] Co de Phone Number LABORATORY [facility] [address] [place] [address] * HEPATITIS B SURFACE ANTIGEN (01/24/2023 10:39 AM EDT) Hepatitis B Surface Antigen Negative Negative 01/24/2023 8:17 PM EDT [facility] Blood Venous blood specimen / Unknown Venipuncture / Unknown 01/24/2023 10:39 AM EDT 01/24/2023 10:39 AM EDT Scout Huddleston MD LAB BLOOD ORDERA BLES Performing Organization Address City/State/[facility] Co de Phone Number [facility] [address] [place] [address] documented in this encounter Visit Diagnoses Diagnosis [...] Advance Directives occurred with: Patient Care Teams Outreach Specialist Relationship Specialty Start Date End Date Chema Combs MD [address], [place] [phone] PCP - General Family Medicine 07/02/18 documented as of this encounter
--- OUTSIDE RECORDS SUMMARY | 2023-05-22 14:56 | External Medical Summary | Summary of Care ---
Author Name Unknown Organization [facility] Address [address] [facility] [address] Phone [phone] Care Team Providers Care Honing Machine Operator Name Role Phone Chema Combs MD Primary Care Provider [phone] Reason for Visit * Reason Onset Date Comments Precert In Process 01/30/2023 HIPOLITO SOTOMAYOR Encounter Details Date Type Department Care Team Description 01/30/2023 Telephone Hematology/Oncology Treatment, [place] [address] [place] [address] Scout Huddleston MD [address] [place] [address] Precert In Process ( HIPOLITO SOTOMAYOR) Allergies Active Allergy Reactions [...] ONYCHOLYSIS 02/06/2008 06/16/2015 PVD (PERIPHERAL VASCULAR DISEASE) [facility] 02/06/2008 01/02/2012 Screening for prostate cancer 02/06/2008 [...] KRYSTIN Lin - 01/30/2023 12:30 PM EDT [facility] Authorization Submission Submission Information: Medication: Lidocaine-Prilocaine 2.5-2.5 % External Cream Portal used: [facility] Insurance: [employer] Authorization #/Patel: [id number] Fela Tariq Medication Senior Planning Manager P: [phone] F: [phone] 01/30/2023,12:30 PM * Telephone Encounter - Reyna [...] Description 01/31/2023 Telemedicine Nutrition Services Nery Church, CAYDENN [address] [place] [address] 03/12/2023 Office Visit Family Medicine Chema Combs MD [address] [place] [address] [place] [address] 04/30/2023 Office Visit Family Medicine Chema Combs MD [address] [facility] [place] [address] 09/19/2023 Office Visit Cardiology Prashant Ruiz, DO [address] [place] [address] Scheduled Procedures Name Priority Associated Diagnoses Date/Ti [...] 08/29/2016 LUNG CANCER SCREENING - USE SMARTSET 84388 Completed 10/01/2017 Zoster Vaccines Completed 12/14/2019, 09/24, [...] Advance Directives occurred with: Patient Care Teams Honing Machine Operator Relationship Specialty Start Date End Date Chema Combs MD [address] [place], [place] [phone] PCP - General Family Medicine 07/02/18 documented as of this encounter
--- OUTSIDE RECORDS SUMMARY | 2023-05-22 14:56 | External Medical Summary | Summary of Care ---
Author Name Unknown Organization [facility] Address [address] [facility] [address] Phone [phone] Care Team Providers Care Vasc Tech Name Role Phone Chema Combs MD Primary Care Provider [phone] Encounter Details Date Type Department Care Team Description 02/12/2023 Orders Only Hematology/Oncology [facility] [place] [address] [facility] [place] [address] Scout Huddleston MD 200 [place] [address] Allergies Active Allergy Reactions Severity Noted Date [...] 02/06/2008 06/16/2015 PVD (PERIPHERAL VASCULAR DISEASE) PERIPH ALVIN RANGEL 02/06/2008 01/02/2012 Screening for prostate [...] 02/14/2023 Laboratory [facility] [place], Lab [address] [place] [address] 02/15/2023 Hem/Onc Treatment Hematology Oncology [place], [address] Hem Onc Sc[address] [place] [address] 02/28/2023 Telemedicine Nutrition Services Nery Church, CAYDENN [address] [place] [address] 03/12/2023 Office Visit Family Medicine Chema Combs MD [address] [place] [address] 04/30/2023 Office Visit Family Medicine Chema Combs MD [address] [place] [address] 09/19/2023 Office Visit Cardiology Prashant Ruiz, DO [address] [place] [address] Scheduled Procedures Name Priority Associated Diagnoses Date/Ti [...] 08/29/2016 LUNG CANCER SCREENING - USE SMARTSET 39573 Completed 10/01/2017 Zoster Vaccines Completed 12/14/2019, 09/24, 02/16/2013 GARDASIL-HPV IMMUNIZATION SERIES Aged Out No longer eligible based on patient's age to complete this topic Hepatitis B Aged Out No longer eligi ble based on patient's age to complete this topic documented as of this encounter Medical Devices Implanted Type Area Chair Springer Device Identifier Shelf Expiration Date Model / Serial / Lot Port Implant W/8f Poly Cath - [id number] Implanted:Qty : 1 on 02/12/2023 at [facility] Right: Chest CR BARD : PERIPHERAL VASCULAR [id number] 04/25/2024 [id number] / / [id number] documented as of this encounter Advance Directives Latest Code Status on File Code Status Date Activated Date Inactivated Comments Full Code 12/27/2022 3:40 PM 01/01/2023 8:39 PM This or aj reflects the patients wishes and were consensually agreed upon. Question Answer Comments Discussion of Advance Directives occurred with: Patient Care Teams Vasc Tech Relationship Specialty Start Date End Date Chema Combs MD [address], [place] [phone] PCP - General Family Medicine 07/02/18 documented as of this encounter
--- OUTSIDE RECORDS SUMMARY | 2023-05-22 14:56 | External Medical Summary ---
Author Name Unknown Address Unknown Organization K01:LABORATORY [facility] [place] [address] [place] [address] Laboratory Report Ordering Provider Test Date Status MARLON ORTEGA 02/14/2023 09:25:00 Final Observation Date Value Abnormality Reference (Units ) Status Magnesium 02/14/2023 09:25:00 2.0 1.5-2.6 (m g/dL) Final Performing Location [facility] - [address] [place] [address]
--- OUTSIDE RECORDS SUMMARY | 2023-05-22 14:57 | External Medical Summary | Summary of Care ---
Author Name Unknown Organization [facility] Address [address] [facility] [place] [address] Phone [phone] Care Team Providers Care Backhoe Operator Name Role Phone Chema Combs MD Primary Care Provider [phone] Reason for Visit * Reason Onset Date Comments Scheduling 01/29/2023 Encounter Details Date Type Department Care Team Description 01/29/2023 Telephone Hematology/Oncology [facility] [place] [address] [place] [address] Scout Huddleston MD [address] [place] [address] Scheduling Allergies Active Allergy Reactions Severity Noted Date Comments Lisinopril Cough Low 08/18/2009 documented as of this encounter (statuses as of 01/29/2023) Medications Medication Sig Dispensed Refills Start Date [...] as of this encounter (statuses as of 01/29/2023) Active Problems Problem Noted Date Gall bladder [...] as of this encounter (statuses as of 01/29/2023) Resolved Problems Problem Noted Date Resolved Date [...] 02/06/2008 06/16/2015 PVD (PERIPHERAL VASCULAR DISEASE) PERIP CARLOS RANGEL 02/06/2008 01/02/2012 Screening for prostate cancer 02/06/2008 Overview: Resolved per Screening Diagnosis Protocol #6 Tobacco use disorder 02/06/2008 01/02/2012 Osteoporosis 02/06/2008 06/16/2015 PAIN IN LIMB, LEFT DISTAL GREAT TOE 02/06/2008 06/16/2015 HTN, goal below 140/90 3 HTN, goal below 140/80 5 documented as of this encounter (statuses as of 01/29/2023) Immunizations Name Administration Dates Next Due COVID-19 [...] Miscellaneous Notes * Telephone Encounter - KRYSTIN Rodriguez - 01/29/2023 1:53 PM EDT Patient had called in about getting his Mediport insert scheduled and I had left the patient know that I had nothing soon since Dr. Miranda was leaving on 02/01 and that the Locums coming to help wouldn't be until 02/08 or later once their credentials were updated so I then suggested the patient could go to to [place] , he was ok with that, so I reached out to the IR scheduling in [place] they are to reach out to the patient and get him scheduled. Thank you documented in this encounter Plan of Treatment Upcoming Encounters Date Type Specialty Care Team Description 01/31/2023 Telemedicine Nutrition Services Nery Church, RDN [address] [place] [address] 04/30/2023 Office Visit Family Medicine Chema Combs MD [address] [place] [address] 09/19/2023 Office Visit Cardiology Prashant Ruiz, DO [address] [place] [address] Scheduled Procedures Name Priority Associated Diagnoses Date/Ti [...] 08/29/2016 LUNG CANCER SCREENING - USE SMARTSET [id number] Completed 10/01/2017 Zoster Vaccines Completed 12/14/2019, 09/24, [...] Advance Directives occurred with: Patient Care Teams Backhoe Operator Relationship Specialty Start Date End Date Chema Combs MD [address] [place] [address] PCP - General Family Medicine 07/02/18 documented as of this encounter
--- OUTSIDE RECORDS SUMMARY | 2023-05-22 14:57 | External Medical Summary | Summary of Care ---
Author Name Unknown Organization [facility] Address [address] [facility] [place] [address] Phone [phone] Care Team Providers Care Electronic Maintenance Supervisor Name Role Phone Chema Combs MD Primary Care Provider [phone] Reason for Visit * Reason Onset Date Comments Medication Refill 01/24/2023 Encounter Details Date Type Department Care Team Description 01/24/2023 Refill Hematology/Oncology [facility] [place] [address] [facility] [place] [address] Scout Huddleston MD 200 [facility] [place] [address] Carcinoma of gall bladder (HCC)* Allergies Active Allergy Reactions Severity Noted Date Comments Lisinopril Cough Low 08/18/2009 documented as of this encounter (statuses as of 01/24/2023) Medications Medication Sig Dispensed Refills Start Date [...] as of this encounter (statuses as of 01/24/2023) Active Problems Problem Noted Date Gall bladder [...] as of this encounter (statuses as of 01/24/2023) Resolved Problems Problem Noted Date Resolved Date [...] 06/16/2015 PVD (PERIPHERAL VASCULAR DISEASE) PERIP SPRING MCKEON,UNS 02/06/2008 01/02/2012 Screening for prostate cancer 02/06/2008 Overview: Resolved per Screening Diagnosis Protocol #6 Tobacco use disorder 02/06/2008 01/02/2012 Osteoporosis 02/06/2008 06/16/2015 PAIN IN LIMB, LEFT DISTAL GREAT TOE 02/06/2008 06/16/2015 HTN, goal below 140/90 3 HTN, goal below 140/80 5 documented as of this encounter (statuses as of 01/24/2023) Immunizations Name Administration Dates Next Due COVID-19 [...] Telephone Encounter - Reyna Heard RN - 01/24/2023 9:45 AM EDT Pended EMLA documented in this encounter Plan of Treatment Upcoming Encounters Date Type Specialty Care Team Description 04/30/2023 Office Visit Family Medicine Chema Combs MD [address] [place] [address] 09/19/2023 Office Visit Cardiology Prashant Ruiz, DO [address] [place] [address] Scheduled Procedures Name Priority Associated Diagnoses Date/Ti [...] 08/29/2016 LUNG CANCER SCREENING - USE SMARTSET 00504 Completed 10/01/2017 Zoster Vaccines Completed 12/14/2019, 09/24, 02/16/2013 GARDASIL-HPV IMMUNIZATION SERIES Aged Out No longer eligible based on patient's age to complete this topic Hepatitis B Aged Out No longer eligi ble based on patient's age to complete this topic documented as of this encounter Medical Devices Not on filedocumented as of this encounter Visit Diagnoses Diagnosis Carcinoma of gall bladder (HCC)- Primary Malignant neoplasm of gallbladder documented in this encounter Advance Directives Latest Code Status on File Code Status Date Activated Date Inactivated Comments Full Code 12/27/2022 3:40 PM 01/01/2023 8:39 PM This or aj reflects the patients wishes and were consensually agreed upon. Question Answer Comments Discussion of Advance Directives occurred with: Patient Care Teams Electronic Maintenance Supervisor Relationship Specialty Start Date End Date Chema Combs MD [address] [place] [address] PCP - General Family Medicine 07/02/18 documented as of this encounter
--- OUTSIDE RECORDS SUMMARY | 2023-05-22 14:57 | External Medical Summary | Summary of Care ---
Author Name Unknown Organization [facility] Address [address] [facility] [place] [address] Phone [phone] Care Team Providers Care Cafeteria Associate Name Role Phone Chema Combs MD Primary Care Provider [phone] Reason for Visit * Reason Onset Date Comments Precert Future 01/30/2023 EMLA Encounter Details Date Type Department Care Team Description 01/30/2023 Telephone Hematology/Oncology Treatment, [place] [address] [place] [address] Scout Huddleston MD [address] [place] [address] Precert Future (EMLA) Allergies Active Allergy Reactions Severity Noted Date [...] Resolved Problems Problem Noted Date Resolved Date KRAISSA (acute kidney injury) 12/29/20222022 Prediabetes 04/06/2019 09/08/2020 [...] & COVER 1HR PRIOR TO ACCESSING. Physician: TEJAS Doan Received fax from pharmacy that EMLA requires prior auth. documented in this encounter Plan of Treatment Upcoming Encounters Date Type Specialty Care Team Description 01/31/2023 Telemedicine Nutrition Services Nery Church, RDN [address] [place] [address] 03/12/2023 Office Visit Family Medicine Chema Combs MD [address] [place] [address] 04/30/2023 Office Visit Family Medicine Chema Combs MD [address] [place] [address] 09/19/2023 Office Visit Cardiology Prashant Ruiz DO [address] [place] [address] Scheduled Procedures Name Priority Associated Diagnoses Date/Ti me COLONOSCOPY FLEXIBLE PROXIMA L DIAGNOSTIC Recall Encounter for screening colonoscopy [facility] Maintenance Due Date Last Done Comments Alpha-1 [...] 08/29/2016 LUNG CANCER SCREENING - USE SMARTSET [id number] Completed 10/01/2017 Zoster Vaccines Completed 12/14/2019, 09/24, [...] Advance Directives occurred with: Patient Care Teams Cafeteria Associate Relationship Specialty Start Date End Date Chema Combs MD [address] [place], [place] [id number] PCP - General Family Medicine 07/02/18 documented as of this encounter
--- OUTSIDE RECORDS SUMMARY | 2023-05-22 14:57 | External Medical Summary | Summary of Care ---
Author Name Unknown Organization [facility] Address [address] [place] [address] Phone [phone] Care Team Providers Care Chemical Inspector Name Role Phone Chema Combs MD Primary Care Provider [phone] Reason for Referral * Precert (Within 10 days (routine)) - Pending Review Specialty Diagnoses / Procedures Referred By Contac t Referred To Contact Radiology Diagnoses Carcinoma of gall bladder (HCC) Procedures IR VENOUS ACCESS MEDIPORT Scout Huddleston MD [address] [place] [address] Referral ID Status Reason Start Date Expiration Date V isits Requested Visits Authorized [id number] Pending Review 01/24/2023 999 999 * Evaluate & Treat - Unlimited Visits (Within 10 days (routine)) - Pending Review Specialty Diagnoses / Procedures Referred By Contac t Referred To Contact Dietitian / Nutrition Services Diagnoses Carcinoma of gall bladder (HCC) Scout Huddleston MD [address] [place] [address] Referral ID Status Reason Start Date Expiration Date Visits Requested Visits Authorized [id number] Pending Review Specialty Services Required 01/24/2023 999 999 Question Answer Referral Priority Within 10 days (routine) What condition is the patient being seen for? Cancer Comments Patient with gallbladder carcinoma, following low fat diet, looking for dietary recommendations for cancer diagnosis and during chemotherapy Encounter Details Date Type Department Care Team Description 01/24/2023 Nurse Only Hematology/Oncology [facility] [place] [address] [facility] [place] [address] Chandrika, Nurse Hem Onc [facility] 200 [place] [address] Allergies Active Allergy Reactions Severity Noted Date [...] actual BMI) 11/06/2013 11/20/2016 Overview: bmi= 34.24 6/13/14 Low back pain 07/20/2013 06/16/2015 S/P cataract [...] Family Medicine [facility] Combs [facility] [address] [facility] [address] 09/19/2023 Office Visit Cardiology Prashant Riuz DO [address] [place] [address] Scheduled Orders Name Type Priority Associated Diagnoses Orde r Schedule IR VENOUS ACCESS MEDIPORT Medical Imaging Routine Carcinoma of gall bladder (HCC) Expected: 01/24/2023, Expires: 02/24/2024 Scheduled Procedures Name Priority Associated Diagnoses Date/Ti [...] 08/29/2016 LUNG CANCER SCREENING - USE SMARTSET [id number] Completed 10/01/2017 Zoster Vaccines Completed 12/14/2019, 09/24, [...] Advance Directives occurred with: Patient Care Teams Chemical Inspector Relationship Specialty Start Date End Date Chema Combs MD [address] [place], [place] [phone] PCP - General Family Medicine 07/02/18 documented as of this encounter
--- OUTSIDE RECORDS SUMMARY | 2023-05-22 14:57 | External Medical Summary | Summary of Care ---
Author Name Unknown Organization [facility] Address [address] [place] [address] Phone [phone] Care Team Providers Care Exercise Planner Name Role Phone Chema Combs MD Primary Care Provider Reason for Visit * Reason Onset Date Comments Precert Future 01/16/2023 GEMZAR, CISPLATI N, IMFINZI, EMEND Encounter Details Date Type Department Care Team Description 01/16/2023 Telephone Hematology/Oncology Treatment, [place] [address] [facility] [place] [address] Scout Huddleston MD [address] [place] [address] Precert Future (GEMZAR, CISPLATIN, IMFINZI... Allergies Active [...] from the original note were not included. [place] plan built for [id number] Alteration needs updated to follow guidelines, imfinzi [...] Encounters Date Type Specialty Care Team Description 01/24/2023 Nurse Only Hematology Oncology [place], Nurse Hem Onc [facility] [address] [place] [address] 04/30/2023 Office Visit Family Medicine Chema Combs MD [address] [place] [address] 09/19/2023 Office Visit Cardiology Prashant Ruiz, DO [address] [place] [address] Scheduled Orders Name Type Priority Associated Diagnoses Orde r Schedule HEPATITIS B SURFACE ANTIGEN Lab STAT Special screening examination for viral disease Expected: 01/16/2023, Expires: 01/17/2024 HEPATITIS B CORE ANTIBODIES IGG AND IGM Lab STAT Special screening examination for viral disease Expected: 01/16/2023, Expires: 01/17/2024 HEPATITIS B SURFACE ANTIBODY Lab STAT Special screening examination for viral disease Expected: 01/16/2023, Expires: 01/17/2024 Scheduled Procedures Name Priority Associated Diagnoses Date/Ti [...] 12/11/2022, 06/28, 07/06/2021, Additional history exists GFR 01/15/2024 01/14/2023, 08/12/2022, 12/31/2022, Additional history exists O2 ASSESSMENT COMPLETED IN PAST YEAR FOR COPD 01/23/2024 01/22/2023 Colonoscopy 07/06/2026 07/06/2016, 07/06/2016 Colorectal Cancer Screening [...] 08/29/2016 LUNG CANCER SCREENING - USE SMARTSET [id number] Completed 10/01/2017 Zoster Vaccines Completed 12/14/2019, 09/24, 02/16/2013 GARDASIL-HPV IMMUNIZATION SERIES Aged Out No longer eligible based on patient's age to complete this topic Hepatitis B Aged Out No longer eligi ble based on patient's age to complete this topic documented as of this encounter Medical Devices Not on filedocumented as of this encounter Visit Diagnoses Diagnosis Special screening [...] Advance Directives occurred with: Patient Care Teams Exercise Planner Relationship Specialty Start Date End Date Chema Combs MD [address] [place] [address] PCP - General Family Medicine 07/02/18 documented as of this encounter
--- OUTSIDE RECORDS SUMMARY | 2023-05-22 14:57 | External Medical Summary | Summary of Care ---
Author Name Unknown Organization [facility] Address [address] [place] [address] Phone [phone] Care Team Providers Care Java Manager Name Role Phone Chema Combs MD Primary Care Provider Reason for Visit * Reason Comments Outpatient Testing Encounter Details Date Type Department Care Team Description 01/24/2023 Laboratory Laboratory [facility] [address] [place] [phone] [facility] 200 [facility] [place] [address] Gall bladder disease; Special screening examination for viral disease Allergies Active Allergy Reactions Severity Noted Date [...] Family Medicine Chema Combs MD [address] [place] [address] 09/19/2023 Office Visit Cardiology Prashant Ruiz, DO [address] [place] [address] Pending Results Name Type Priority Associated Diagnoses Date /Time CBC WITH WBC DIFFERENTIAL Lab STAT Gall bladder disease 01/24/2023 10:39 AM EDT COMPREHENSIVE METABOLIC PANEL Lab STAT Gall bladder disease 01/24/2023 10:39 AM EDT TSH WITH FREE T4 IF INDICATED Lab STAT Gall bladder disease 01/24/2023 10:39 AM EDT HEPATITIS B SURFACE ANTIGEN Lab STAT Special screening examination for viral disease 01/24/2023 10:39 AM EDT HEPATITIS B CORE ANTIBODIES IGG AND IGM Lab STAT Special screening examination for viral disease 01/24/2023 10:39 AM EDT HEPATITIS B SURFACE ANTIBODY Lab STAT Special screening examination for viral disease 01/24/2023 10:39 AM EDT CBC Lab STAT Gall bladder disease 01/24/2023 10:39 AM EDT DIFFERENTIAL, AUTOMATED Lab STAT Gall bladder disease 01/24/2023 10:39 AM EDT Scheduled Procedures Name Priority Associated [...] 07/06/2021, Additional history exists GFR 01/15/2024 01/14/2023, 08/0 12/2022, 12/31/2022, Additional history exists O2 ASSESSMENT COMPLETED [...] 08/29/2016 LUNG CANCER SCREENING - USE SMARTSET 14157 Completed 10/01/2017 Zoster Vaccines Completed 12/14/2019, 09/24, [...] Gall bladder disease Unspecified disorder of gallbladder Special screening examination for viral disease Special screening examination for unspecified viral disease documented in this encounter Advance Directives Latest Code Status on File Code Status Date Activated Date Inactivated Comments Full Code 12/27/2022 3:40 PM 01/01/2023 8:39 PM This or aj reflects the patients wishes and were consensually agreed upon. Question Answer Comments Discussion of Advance Directives occurred with: Patient Care Teams Java Manager Relationship Specialty Start Date End Date Chema oCmbs MD [address] [place], [place] [phone] PCP - General Family Medicine 07/02/18 documented as of this encounter
--- OUTSIDE RECORDS SUMMARY | 2023-05-22 14:57 | External Medical Summary | Summary of Care ---
Author Name Unknown Organization [facility] Address [address] [facility] [place] [address] Phone [phone] Care Team Providers Care Casting Agent Name Role Phone Chema Combs MD Primary Care Provider [phone] Reason for Visit * Reason Onset Date Comments Appointment 01/24/2023 Encounter Details Date Type Department Care Team Description 01/24/2023 Telephone Hematology/Oncology [facility] [place] [address] [place] [address] Scout Huddleston MD [address] [facility] [place] [address] Appointment Allergies Active Allergy Reactions Severity Noted Date [...] of tobacco use 01/02/2012 7 Overview: quit 10/15/09 Routine medical exam 01/02/2012 06/16/2015 Backache 01/02/2012 [...] * Telephone Encounter - KRYSTIN Bonilla - 01/24/2023 10:25 AM EDT Nutrition-please contact patient for an appt in regards to Patient with gallbladder carcinoma, following low fat diet, looking for dietary recommendations forcancer diagnosis and during chemotherapy Thank you * Telephone Encounter - KRYSTIN Bonilla - 01/24/2023 10:23 AM EDT IR-please contact patient now for an appt he is ready to have this done Removal?Venous Access InsertionMediport TypeSingle LumenReason for Proceduremediport insertion for chemotherapyWhere Will The Procedure Be Performed?[facility] Thank you documented in this encounter Plan of Treatment Upcoming Encounters Date Type Specialty Care Team Description 01/24/2023 Laboratory [facility] [place] [address] [place] [facility] [place] [address] Gall bladder disease; Special screening examination for viral disease 04/30/2023 Office Visit Family Medicine Chema Combs MD [address] [place] [address] 09/19/2023 Office Visit Cardiology Prashant Ruiz, [address] [place] [address] Scheduled Procedures Name Priority Associated Diagnoses Date/Ti [...] 07/06/2021, Additional history exists GFR 01/15/2024 01/14/2023, 0812/2022, 12/31/2022, Additional history exists O2 ASSESSMENT COMPLETED [...] 08/29/2016 LUNG CANCER SCREENING - USE SMARTSET 43766 Completed 10/01/2017 Zoster Vaccines Completed 12/14/2019, 09/24, [...] Advance Directives occurred with: Patient Care Teams Casting Agent Relationship Specialty Start Date End Date Chema Combs MD [address] [place], [place] [phone] PCP - General Family Medicine 07/02/18 documented as of this encounter
--- OUTSIDE RECORDS SUMMARY | 2023-05-22 14:57 | External Medical Summary | Summary of Care ---
Author Name Unknown Organization [facility] Address [address] [facility] [address] Phone [phone] Care Team Providers Care Offensive Coordinator Name Role Phone Chema Combs MD Primary Care Provider [phone] Encounter Details Date Type Department Care Team Description 01/24/2023 Orders Only Hematology/Oncology [facility] [place] 200 [facility] [place] [address] Scout Huddleston MD 200 [place] [address] Allergies Active Allergy Reactions Severity Noted Date [...] Team Description 01/24/2023 Nurse Only Hematology Oncology [place], Nurse Hem Onc [place] [address] [facility] [place] [address] Arrived 04/30/2023 Office Visit Family Medicine Chema Combs MD [address] [place] [address] 09/19/2023 Office Visit Cardiology Prashant Ruiz, DO [address] [place] [address] Scheduled Procedures Name Priority Associated Diagnoses Date/Ti [...] 12/12/2023 12/11/2022, /07/2022, 07/06/2021, Additional history exists GFR 01/15/2024 01/14/2023, [...] 08/29/2016 LUNG CANCER SCREENING - USE SMARTSET 64720 Completed 10/01/2017 Zoster Vaccines Completed 12/14/2019, 09/24, [...] Advance Directives occurred with: Patient Care Teams Offensive Coordinator Relationship Specialty Start Date End Date Chema Combs MD [address] [place] [address] PCP - General Family Medicine 07/02/18 documented as of this encounter
--- OUTSIDE RECORDS SUMMARY | 2023-05-22 14:58 | External Medical Summary | Summary of Care ---
Author Name Unknown Organization [facility] Address [address] [facility] [place] [address] Phone [phone] Care Team Providers Care Floating Derrick Operator Name Role Phone Chema Combs MD Primary Care Provider [phone] Reason for Visit * Reason Onset Date Comments Appointment 01/16/2023 Encounter Details Date Type Department Care Team Description 01/16/2023 Telephone Hematology/Oncology [facility] [place] [address] [place] [address] Scout Huddleston MD 200 [facility] [place] [address] Appointment Allergies Active Allergy Reactions Severity Noted Date Comments Lisinopril Cough Low 08/18/2009 documented as of this encounter (statuses as of 01/22/2023) Medications Medication Sig Dispensed Refills Start Date [...] as of this encounter (statuses as of 01/22/2023) Active Problems Problem Noted Date Gall bladder [...] as of this encounter (statuses as of 01/22/2023) Resolved Problems Problem Noted Date Resolved Date [...] as of this encounter (statuses as of 01/22/2023) Immunizations Name Administration Dates Next Due COVID-19 [...] * Telephone Encounter - KRYSTIN Bonilla - 01/22/2023 8:45 AM EDT IR-please contact patient for an appt for port placement. Patient was seen today and had time to process and would like to proceed with port. Thank you. * Telephone Encounter - KRYSTIN Bonilla - 01/16/2023 9:32 AM EDT IR-please contact patient for an appt in regards to Removal?Venous Access InsertionMediport TypeSingle LumenReason for ProcedurechemoWhere Will The Procedure Be Performed?[facility] Thank you. documented in this encounter Plan of Treatment Upcoming Encounters Date Type Specialty Care Team Description 01/24/2023 Nurse Only Hematology Oncology [place], Nurse Hem Onc [facility] [address] [place] [address] 04/30/2023 Office Visit Family Medicine Chema Combs MD [address] [place] [address] 09/19/2023 Office Visit Cardiology Prashant Ruiz, [address] [place] [address] Scheduled Procedures Name Priority Associated Diagnoses Date/Ti [...] ASSESSMENT COMPLETED IN PAST YEAR FOR COPD 01/17/2024 01/16/2023 Colonoscopy 07/06/2026 07/06/2016, 07/06/2016 Colorectal Cancer Screening [...] 08/29/2016 LUNG CANCER SCREENING - USE SMARTSET 48305 Completed 10/01/2017 Zoster Vaccines Completed 12/14/2019, 09/24, [...] Advance Directives occurred with: Patient Care Teams Floating Derrick Operator Relationship Specialty Start Date End Date Chema Combs MD [address] [facility] [address] PCP - General Family Medicine 07/02/18 documented as of this encounter
--- OUTSIDE RECORDS SUMMARY | 2023-05-22 14:58 | External Medical Summary ---
Author Name Unknown Address Unknown Organization K01:[facility] [address] [place] [id number] Laboratory Report Ordering Provider Test Date Status MARLON ORTEGA 01/24/2023 10:39:01 Final Observation Date Value Abnormality Reference (Units) Status Hepatitis B virus surface Ab [Units/volume] in Serum or Plasma by Immunoassay 01/24/2023 10:39:01 <3.5 (mIU/mL) Final Hepatitis B virus surface Ab [Presence] in Serum by Immunoassay 01/24/2023 10:39:01 Negative Final HEPATITIS B SURFACE ANTIBODY, INTERPRETATION 01/24/2023 10:39:01 NOT immune to Hepatitis B Virus Final POSITIVE: >=11.5 mIU/mL
INDETERMINATE: 8.5-<11.5 mIU/mL
NEGATIVE: <8.5 mIU/mL Performing Location [facility] [address] [place] [id number]
--- OUTSIDE RECORDS SUMMARY | 2023-05-22 14:58 | External Medical Summary ---
Author Name Unknown Address Unknown Organization [id number]:[facility] [place] [address] [place] [address] Laboratory Report Ordering Provider Test Date Status MARLON ORTEGA 01/24/2023 10:39:01 Final Observation Date Value Abnormality Reference (Units ) Status TSH 01/24/2023 10:39:01 1.83 0.27-4.20 (uIU/mL) Final Performing Location [facility] [place] [address] [place] [address]
--- OUTSIDE RECORDS SUMMARY | 2023-05-22 14:58 | External Medical Summary | Summary of Care ---
Author Name Unknown Organization [facility] Address [address] [facility] [address] Phone [phone] Care Team Providers Care Elevator Pilot Name Role Phone Chema Combs MD Primary Care Provider [phone] Reason for Visit * Reason Comments Follow Up Encounter Details Date Type Department Care Team Description 01/22/2023 Office Visit Hematology/Oncology [facility] [place] [address] [facility] [place] [address] Scout Huddleston MD 200 [facility] [place] [address] Carcinoma of gall bladder (HCC)*; Chronic lymphocytic 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 [...] Special screening for malignant neoplasm of pros wihtten 11/03/2012 11/20/2016 Obesity, Class I, BMI 30.0-34.9 [...] Sign Reading Time Taken Comments Blood Pressure 125/76 01/22/2023 8:21 AM EDT Pulse 78 01/22/2023 8:21 AM EDT Temperature 36.8 C (98.2 F) 01/22/2023 8:21 AM ED T Respiratory Rate 16 01/22/2023 8:21 AM EDT Oxygen Saturation 95% 01/22/2023 8:21 AM EDT Inhaled Oxygen Concentration - - Weight 104.1 kg (229 lb 9.6 oz) 01/22/2023 8:21 AM EDT Height - - Body Mass Index 31.14 01/10/2023 10:15 AM EDT documented in this [...] Progress Notes * Scout Huddleston MD - 01/22/2023 8:27 AM EDT Outpatient Consult Note Data Source: Patient, Epic record. Data Source: Patient, Epic record. 01/22/2023 8:27 AM Jh Fields Jr. 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 Recommend correlation with clinical [...] diagnosed of lung cancer Interval History: He has discussed his situation with the other subspecialty including the lung doctor and Cardiologyand 5 need decided to proceed with treatment including combination of cisplatin plus gemcitabine and durvalumab. Clinically he is stable without any new symptoms. LABS/IMAGING: Results for orders placed or performed in visit on 01/14/23 COMPREHENSIVE METABOLIC PANEL Result Value Ref Range BUN 14 6 - 20 mg/dL Creatinine 1.1 0.6 - 1.2 mg/dL Estimated Glomerular Filtration Rate 75 >=60 mL/min Sodium 141 135 - 146 mmol/L Potassium 3.7 3.5 - 5.1 mmol/L Chloride 100 98 - 107 mmol/L CO2 29 22 - 32 mmol/L Anion Gap 12 7 - 15 mmol/L Glucose 123 (H) 70 - 120 mg/dL Albumin 4.2 3.8 - 5.0 g/dL AST 36 10 - 50 U/L Alkaline Phosphatase 243 (H) 35 - 130 U/L Bilirubin, Total 0.7 <=1.2 mg/dL Calcium 9.8 8.4 - 10.2 mg/dL Protein 6.0 6.0 - 8.3 g/dL ALT 32 10 - 50 U/L LD Result Value Ref Range LD 185 <=250 U/L IMMUNOGLOBULIN QUANTITATIVE Result Value Ref Range IgG 671 (L) 700 - 1,600 mg/dL IgA 23 (L) 70 - 400 mg/dL IgM 42 40 - 230 mg/dL ALPHA-FETOPROTEIN TUMOR MARKER Result Value Ref Range Alpha-Fetoprotein Tumor Marker 3.7 0.0 - 8.3 ng/mL CBC Result Value Ref Range WBC 21.24 (H) 4.00 - 10.80 K/uL RBC 4.52 4.50 - 5.25 M/uL HGB 13.6 (L) 14.0 - 16.8 g/dL HCT 41.6 40.0 - 48.4 % MCV 92.0 82.0 - 99.5 fL MCH 30.1 27.0 - 34.0 pg MCHC 32.7 32.0 - 36.0 g/dL RDW 14.4 11.5 - 15.5 % PLT 319 140 - 400 K/uL MPV 10.4 6.6 - 11.1 fL nRBCs 0 <=0 /100 WBCs DIFFERENTIAL, AUTOMATED Result Value Ref Range WBC 21.24 (H) 4.00 - 10.80 K/uL Neutrophils % 30.5 (L) 40.0 - 75.0 % Lymphocytes % 62.5 (H) 18.0 - 42.0 % Monocytes % 5.3 1.0 - 11.0 % Eosinophils % 0.8 0.0 - 6.0 % Basophils % 0.6 0.0 - 2.0 % Immature Granulocytes % 0.3 0.0 - 2.0 % Absolute Neutrophils 6.49 1.80 - 7.70 K/uL Absolute Lymphocytes 13.27 (H) 1.00 - 4.80 K/ul Absolute Monocytes 1.12 (H) 0.00 - 1.10 K/uL Absolute Eosinophils 0.16 0.00 - 0.70 K/uL Absolute Basophils 0.13 0.00 - 0.20 K/uL Absolute Immature Granulocytes 0.07 0.00 - 0.20 K/uL REVIEW OF SYSTEMS: General: No Fever, chills, night sweats, or weight loss. HEENT: No change in visual acuity, blurred or double vision. No epistaxis, facial pain, nasal discharge or change in hearing. Denies dysphagia, no muscosal ulceration, or sores noted. Cardiovascular: No chest pain, WIGGINS, or palpitations Respiratory: No shortness of breath, cough, hemoptysis, or pleuritic chest pain Gastrointestinal: Stable abdominal discomfort, No nausea, vomiting, diarrhea, rectal pain or bleeding Genitourinary: Denies Hematuria or dysuria Musculoskeletal: No bone pain Skin: No skin rash or lesions noted Psychiatric: No vegetative signs of depression Endocrine: [...] Prediabetes 04/2012 PVD (peripheral vascular disease) (HCC) Current Outpatient Medications Medication Sig Dispense Refill VITAMIN D 1000 UNITS PO CAPS Take 2 Capsules by mouth in the morning. 60 Cap 11 Acetaminophen 500 MG Capsule Take 2 Capsules by mouth every 6 hours as needed for Fever >38C(100.5F) or Pain, Mild. aspirin enteric coated 81 MG TBEC Take 1 Tablet by mouth in the morning. Gchosrxxjzt-Dpdfynjzx-Xgejst 100-62.5-25 MCG/ACT Aerosol Powder Breath Activated Inhale [...] as needed for Nausea. 30 Tablet 0 No current facility-administered medications for this visit. Social History Tobacco Use Smoking status: Former Packs/day: 2.00 Years: 35.00 Pack years: 70.00 Types: Cigarettes Quit date: 03/10/2010 Years since quittin.8 Smokeless tobacco: Never Vaping Use Vaping Use: Never used Substance Use Topics Alcohol use: No Comment: Social drinker prior to 2009 Drug use: Never Review of patient's allergies indicates: Allergen Reactions Lisinopril Cough PHYSICAL EXAMINATION: General Appearance: Healthy appearing patient in no acute distress BP 125/76 (BP Site: Left Arm, BP Position: Sitting, BP Cuff Size: Large) | Pulse 78 | Temp 36.8 C(98.2 F) (Tympanic) | Resp 16 | Wt 104.1 kg (229 lb 9.6 oz) | SpO2 95% | BMI 31.14 kg/m | BSA 2.3 m Vitals reviewed. Unchanged physical examination since last visit ASSESSMENT: 72-year-old male with history of chronic lymphocytic leukemia initially was diagnosed in 2007 and was treated initially with chlorambucil. Subsequently was treated with ibrutinib because of the high white cell count. Ibrutinib was discontinued because of the episodes of atrial fibrillation and lungtoxicity thought to be because of ibrutinib. He was recently admitted to the hospital with complaint of [...] combination of gemcitabine plus cisplatin and durvalumab. Patient was made aware of his diagnosis and prognosis and risk and benefit of the chemotherapy. Because of underlying comorbid condition, he will be at significant risk for toxicity and side effects from the treatment. PLAN: IR for placement of Port-A-Cath. He will return to clinic for follow-up [...] in this encounter Nursing Notes * Marcela Torres CMA - 01/22/2023 8:22 AM EDT Patient identifed by name and birthdate Do you have any concerns about pain management for today's visit? No Living Will or Advance Directive for Health Care as noted on the problem list. [facility] is a way you can talk to your provider on line through e-mail. Would you like to sign up? I can activate it for you? ALREADY ACTIVE Filed Vitals: 01/22/23 0821 BP: 125/76 Pulse: 78 Resp: 16 Temp: 36.8 C (98.2 F) TempSrc: Tympanic SpO2: 95% Weight: 104.1 kg (229 lb 9.6 oz) Patient was instructed to not get up [...] Only Hematology Oncology [place], Nurse Hem Onc [facility] [address] [place] [address] 04/30/2023 Office Visit Family Medicine Chema Combs MD [address] [place] [address] 09/19/2023 Office Visit Cardiology Prashant Ruiz, DO [address] [place] [address] Scheduled Procedures Name Priority Associated Diagnoses Date/Ti [...] 08/29/2016 LUNG CANCER SCREENING - USE SMARTSET [id number] Completed 10/01/2017 Zoster Vaccines Completed 12/14/2019, 09/24, [...] bladder (HCC)- Primary Malignant neoplasm of gallbladder Chronic lymphocytic leukemia [...] Directives occurred with: Patient Care Teams Elevator Pilot Relationship Specialty Start Date End Date Chema Combs MD [address] [place], [place] [phone] PCP - General Family Medicine 07/02/18 documented as of this encounter"
--- OUTSIDE RECORDS SUMMARY | 2023-05-22 14:58 | External Medical Summary | Summary of Care ---
Author Name Unknown Organization [facility] Address [address] [facility] [place] [address] Phone [phone] Care Team Providers Care Truck Shop Mechanic Name Role Phone Chema Combs MD Primary Care Provider [phone] Reason for Visit * Reason Onset Date Comments Precert Future 01/16/2023 GEMZAR, CISPLATI N, IMFINZI, EMEND Encounter Details Date Type Department Care Team Description 01/16/2023 Telephone Hematology/Oncology Treatment, [place] 200 [facility] [place] [address] Scout Huddleston MD [address] [place] [address] Precert Future (GEMZAR, CISPLATIN, IMFINZI... Allergies Active [...] from the original note were not included. [place] plan built for [id number] Alteration needs updated to follow guidelines, imfinzi [...] Team Description 01/24/2023 Nurse Only Hematology Oncology [place], Nurse Hem Onc [facility] [address] [place] [address] 04/30/2023 Office Visit Family Medicine Chema Combs MD [address] [place] [address] 09/19/2023 Office Visit Cardiology Prashant Ruiz, DO [address] [place] [address] Scheduled Orders Name Type Priority Associated Diagnoses [...] COMPLETED IN PAST YEAR FOR COPD 01/17/2024 01/22/2023 Colonoscopy 07/06/2026 07/06/2016, 07/06/2016 Colorectal Cancer [...] 08/29/2016 LUNG CANCER SCREENING - USE SMARTSET [id number] Completed 10/01/2017 Zoster Vaccines Completed 12/14/2019, 09/24, [...] Advance Directives occurred with: Patient Care Teams Truck Shop Mechanic Relationship Specialty Start Date End Date Chema Combs MD [address] [place] [address] PCP - General Family Medicine 07/02/18 documented as of this encounter
--- OUTSIDE RECORDS SUMMARY | 2023-05-22 14:58 | External Medical Summary ---
Author Name Unknown Address Unknown Organization K09:[facility] [place] [address] Laboratory Report Ordering Provider Test Date Status MARLON ORTEGA 01/24/2023 10:39:01 Final Observation Date Value Abnormality Reference (Units ) Status WBC, Total 01/24/2023 10:39:01 27.66 Above high normal 4 .00-10.80 (K/uL) Final RBC 01/24/2023 10:39:01 4.72 4.50-5.25 (M/uL) Final Hemoglobin 01/24/2023 10:39:01 14.4 14.0-16.8 (g/dL) Final HCT 01/24/2023 10:39:01 43.4 40.0-48.4 (%) Final MCV 01/24/2023 10:39:01 91.9 82.0-99.5 (fL) Final MCH 01/24/2023 10:39:01 30.5 27.0-34.0 (pg) Final MCHC 01/24/2023 10:39:01 33.2 32.0-36.0 (g/dL) Final RDW 01/24/2023 10:39:01 15.0 11.5-15.5 (%) Final Platelets 01/24/2023 10:39:01 318 140-400 (K /uL) Final MPV 01/24/2023 10:39:01 9.6 6.6-11.1 ( fL) Final Performing Location [facility] [place] [address]
--- OUTSIDE RECORDS SUMMARY | 2023-05-22 14:58 | External Medical Summary ---
Author Name Unknown Address Unknown Organization [id number]:[facility] [place] [address] [place] [address] Laboratory Report Ordering Provider Test Date Status MARLON ORTEGA 01/24/2023 10:39:01 Final Observation Date Value Abnormality Reference (Units ) Status Hep B surface Ag 01/24/2023 10:39:01 Negative Neg ative Final Performing Location [facility] - [address] [place] [address]
--- OUTSIDE RECORDS SUMMARY | 2023-05-22 14:58 | External Medical Summary ---
Author Name Unknown Address Unknown Organization K01:[facility] [place] [address] [place] [address] Laboratory Report Ordering Provider Test Date Status MARLON ORTEGA 01/24/2023 10:39:01 Final Observation Date Value Abnormality Reference (Units ) Status Hepatitis B virus core Ab [Presence] in Serum 01/24/2023 10:39:01 Negative Negative Final Performing Location [facility] [place] [address] [place] [address]
--- OUTSIDE RECORDS SUMMARY | 2023-05-22 14:58 | External Medical Summary ---
Author Name Unknown Address Unknown Organization K09:[facility] [place] [address] Laboratory Report Ordering Provider Test Date Status MARLON ORTEGA 01/24/2023 10:39:01 Final Observation Date Value Abnormality Reference (Units ) Status SYNC LEUKOCYTES IN BLOOD BY AUTOMATED COUNT 01/24/2023 10:39:01 27.66 Above high normal 4.00-10.80 (K/uL) Final Neutrophils/100 leukocytes in Blood by Manual count 01/24/2023 10:39:01 25.0 Below low normal 40.0-75.0 (%) Final Lymphocytes/100 leukocytes in Blood by Manual count 01/24/2023 10:39:01 65.0 Above high normal 18.0-42.0 (%) Final Monocytes/100 leukocytes in Blood by Manual count 01/24/2023 10:39:01 8.0 1.0-11.0 (%) Final Eosinophils/100 leukocytes in Blood by Manual count 01/24/2023 10:39:01 2.0 0.0-6.0 (%) Final Neutrophils [#/volume] in Blood by Manual count 01/24/2023 10:39:01 6.92 1.80-7.70 (K/uL) Final Lymphocytes [#/volume] in Blood by Manual count 01/24/2023 10:39:01 17.98 Above high normal 1.00-4.80 (K/uL) Final Monocytes [#/volume] in Blood by Manual count 01/24/2023 10:39:01 2.21 Above high normal 0.00-1.10 (K/uL) Final Eosinophils [#/volume] in Blood by Manual count 01/24/2023 10:39:01 0.55 0.00-0.70 (K/uL) Final Nucleated erythrocytes/100 leukocytes [Ratio] in Blood by Automated count 01/24/2023 10:39:01 Final Variant lymphocytes [Presence] in Blood by Light microscopy 01/24/2023 10:39:01 Present Abnormal None Seen Final Smudge cells [Presence] in Blood by Light microscopy 01/24/2023 10:39:01 Present Abnormal None Seen Final Performing Location [facility] [address] [place] [address]
--- OUTSIDE RECORDS SUMMARY | 2023-05-22 14:58 | External Medical Summary ---
Author Name Unknown Address Unknown Organization K09:[facility] [place] [address] Laboratory Report Ordering Provider Test Date Status MARLON ORTEGA 01/24/2023 10:39:01 Final Observation Date Value Abnormality Reference (Units ) Status BUN 01/24/2023 10:39:01 12 6-20 (mg/dL) Final Creatinine 01/24/2023 10:39:01 1.0 0.6-1.2 (mg/dL) Final Glomerular filtration rate/1.73 sq M.predicted [Volume Rate/Area] in Serum, Plasma or Blood by Creatinine-based formula (CKD-EPI) 01/24/2023 10:39:01 77 >=60 (mL/min) Final eGFR is calculated based on the CKD-EPI 2020 equation SODIUM 01/24/2023 10:39:01 139 135-146 (m mol/L) Final Potassium 01/24/2023 10:39:01 4.0 3.5-5.1 (m mol/L) Final Cl 01/24/2023 10:39:01 101 98-107 (mm ol/L) Final CO2 01/24/2023 10:39:01 28 22-32 (mmo l/L) Final Anion gap 01/24/2023 10:39:01 10 7-15 (mmol /L) Final Glucose 01/24/2023 10:39:01 105 70-120 (mg /dL) Final Albumin 01/24/2023 10:39:01 4.1 3.8-5.0 (g /dL) Final AST (Aspartate aminotransferase) 01/24/2023 10:39:01 26 10-50 (U/L) Fin al Alk Phos 01/24/2023 10:39:01 232 Above high normal 35 -130 (U/L) Final Bilirubin, Total 01/24/2023 10:39:01 0.6 <=1 .2 (mg/dL) Final Calcium 01/24/2023 10:39:01 9.9 8.4-10.2 ( mg/dL) Final Protein 01/24/2023 10:39:01 6.9 6.0-8.3 (g /dL) Final ALT (Alanine aminotransferase) 01/24/2023 10:39:01 14 10-50 (U/L) Donell matthew Performing Location [facility] [address] [place] [address]
[2023-05-22] MEDS ORDERED: ALBUTEROL HFA 8 GM INHALER INH PRN (14:59)
[2023-05-22] MEDS ORDERED: LEVALBUTEROL 1.25 MG/3 ML NEB INH PRN (14:59)
--- OUTSIDE RECORDS SUMMARY | 2023-05-22 14:59 | External Medical Summary | Summary of Care ---
Author Name Unknown Organization [facility] Address [address] [facility] [place] [address] Phone [phone] Care Team Providers Care Boom Stick Worker Name Role Phone Chema Combs MD Primary Care Provider Reason for Visit * Reason Onset Date Comments Precert Future 01/16/2023 GEMZAR, CISPLATI N, IMFINZI, EMEND Encounter Details Date Type Department Care Team Description 01/16/2023 Telephone Hematology/Oncology Treatment, [place] 200 [facility] [place] [address] Scout Huddleston MD [address] [place] [address] Precert Future (GEMZAR, CISPLATIN, IMFINZI... Allergies Active Allergy Reactions Severity Noted Date Comments Lisinopril Cough Low 08/18/2009 documented as of this encounter (statuses as of 01/17/2023) Medications Medication Sig Dispensed Refills Start Date [...] as of this encounter (statuses as of 01/17/2023) Active Problems Problem Noted Date Gall bladder [...] as of this encounter (statuses as of 01/17/2023) Resolved Problems Problem Noted Date Resolved Date [...] as of this encounter (statuses as of 01/17/2023) Immunizations Name Administration Dates Next Due COVID-19 [...] Wood RN - 01/17/2023 9:25 AM EDT Reviewed with Dr Huddleston- Durvulumab is to [...] from the original note were not included. [place] plan built for [id number] Alteration needs updated to follow guidelines, imfinzi [...] Encounters Date Type Specialty Care Team Description 01/21/2023 Nurse Only Hematology Oncology Nurse Chandrika Hem Onc [facility] 200 [place] [address] 04/30/2023 Office Visit Family Medicine [facility] [address] [facility] [address] 09/19/2023 Office Visit Cardiology Prashant Ruiz, DO [address] [place] [address] Scheduled Orders Name Type Priority Associated Diagnoses [...] exists B-12 12/12/2023 12/11/2022 HbA1c 12/12/2023 12/11/2022, 02/2 07/2022, 07/06/2021, Additional history exists GFR 01/15/2024 01/14/2023, [...] 08/29/2016 LUNG CANCER SCREENING - USE SMARTSET [id number] Completed 10/01/2017 Zoster Vaccines Completed 12/14/2019, 09/24, [...] Advance Directives occurred with: Patient Care Teams Boom Stick Worker Relationship Specialty Start Date End Date Chema Combs MD [address] [place] [address] PCP - General Family Medicine 07/02/18 documented as of this encounter
--- OUTSIDE RECORDS SUMMARY | 2023-05-22 14:59 | External Medical Summary | Summary of Care ---
Author Name Unknown Organization [facility] Address [address] [place] [facility] [place] [address] Phone [phone] Care Team Providers Care Husbandry Person Name Role Phone Chema Combs MD Primary Care Provider Reason for Visit * Reason Onset Date Comments Precert Future 01/16/2023 GEMZAR, CISPLATI N, IMFINZI, EMEND Encounter Details Date Type Department Care Team Description 01/16/2023 Telephone Hematology/Oncology Treatment, [place] 200 [facility] [place] [address] Scout Huddleston MD [address] [place] [address] Precert Future (GEMZAR, CISPLATIN, IMFINZI... Allergies Active Allergy Reactions Severity Noted Date Comments Lisinopril Cough Low 08/18/2009 documented as of this encounter (statuses as of 01/16/2023) Medications Medication Sig Dispensed Refills Start Date [...] as of this encounter (statuses as of 01/16/2023) Active Problems Problem Noted Date Gall bladder disease 01/16/2023 Encounter for antineoplastic chemotherap y 01/16/2023 Transaminitis 12/30/2022 Liver mass 12/29/2022 Prediabetes [...] as of this encounter (statuses as of 01/16/2023) Resolved Problems Problem Noted Date Resolved Date [...] as of this encounter (statuses as of 01/16/2023) Immunizations Name Administration Dates Next Due COVID-19 [...] from the original note were not included. [place] plan built for [id number] Alteration needs updated to follow guidelines, imfinzi [...] combo with gem/cis. Please place new altreation. documented in this encounter Plan of Treatment Upcoming Encounters Date Type Specialty Care Team Description 01/21/2023 Nurse Only Hematology Oncology [place], Nurse Hem Onc [facility] [address] [place] [address] 04/30/2023 Office Visit Family Medicine Chema Combs MD [address] [place] [address] 09/19/2023 Office Visit Cardiology Prashant Ruiz DO [address] [place] [address] Scheduled Orders Name Type Priority Associated Diagnoses [...] ASSESSMENT COMPLETED IN PAST YEAR FOR COPD 01/11/2024 01/16/2023 GFR 01/15/2024 01/14/2023, 08/0 12/2022, 12/31/2022, Additional history exists Colonoscopy 07/06/2026 07/06/2016, 07/06/2016 [...] 08/29/2016 LUNG CANCER SCREENING - USE SMARTSET [id number] Completed 10/01/2017 Zoster Vaccines Completed 12/14/2019, 09/24, [...] Advance Directives occurred with: Patient Care Teams Husbandry Person Relationship Specialty Start Date End Date Chema Combs MD [address] [place] [address] PCP - General Family Medicine 07/02/18 documented as of this encounter
--- OUTSIDE RECORDS SUMMARY | 2023-05-22 14:59 | External Medical Summary | Summary of Care ---
Author Name Unknown Organization [facility] Address [address] [facility] [place] [address] Phone [phone] Care Team Providers Care Caramel Cutter Hand Name Role Phone Chema Combs MD Primary Care Provider [phone] Reason for Visit * Reason Onset Date Comments Appointment 01/16/2023 Encounter Details Date Type Department Care Team Description 01/16/2023 Telephone Hematology/Oncology [facility] [place] [address] [place] [address] Scout Huddleston MD 200 [facility] [place] [address] Appointment Allergies Active Allergy Reactions Severity Noted [...] of 01/16/2023) Active Problems Problem Noted Date Transaminitis 12/30/2022 Liver mass 12/29/2022 Prediabetes 01/02/2021 [...] 02/06/2008 06/16/2015 PVD (PERIPHERAL VASCULAR DISEASE) PERIPH VASC DI SANTY,UNSP 02/06/2008 01/02/2012 Screening for prostate [...] LumenReason for ProcedurechemoWhere Will The Procedure Be Performed?[facility] Thank you. documented in this encounter Plan of Treatment Upcoming Encounters Date Type Specialty Care Team Description 01/21/2023 Nurse Only Hematology Oncology [place], Nurse Hem Onc [facility] [address] [place] [address] 04/30/2023 Office Visit Family Medicine Chema Combs MD [address] [place] [address] 09/19/2023 Office Visit Cardiology Prashant Ruiz, DO [address] [place] [address] Scheduled Procedures Name Priority Associated Diagnoses Date/Ti [...] 08/29/2016 LUNG CANCER SCREENING - USE SMARTSET [id number] Completed 10/01/2017 Zoster Vaccines Completed 12/14/2019, 09/24, [...] Advance Directives occurred with: Patient Care Teams Caramel Cutter Hand Relationship Specialty Start Date End Date Chema Combs MD [address] [facility] [place] [address] PCP - General Family Medicine 07/02/18 documented as of this encounter
--- OUTSIDE RECORDS SUMMARY | 2023-05-22 14:59 | External Medical Summary | Summary of Care ---
Author Name Unknown Organization [facility] Address [address] [place] [address] Phone [phone] Care Team Providers Care Caterpillar Mechanic Name Role Phone Chema Combs MD Primary Care Provider [phone] Reason for Visit * Reason Onset Date Comments Scheduling 01/17/2023 Mediport inserti on Encounter Details Date Type Department Care Team Description 01/17/2023 Telephone Radiology, [facility] [address] [place] [address] Sonia German I, LAMAR Scheduling (Mediport insertion) Allergies Active Allergy Reactions Severity Noted Date [...] encounter Miscellaneous Notes * Telephone Encounter - Sonia German RN - 01/17/2023 1:00 PM EDT Spoke to patient to schedule mediport placement but patient stated that he is not going to be doingchemo at this time and is going to meet with his doctor regarding other alternatives. Order canceled documented in this encounter Plan of Treatment Upcoming Encounters Date Type Specialty Care Team Description 01/22/2023 Office Visit Hematology Oncology [place], Scout Seymour MD [address] [facility] [place] [id number] 04/30/2023 Office Visit Family Medicine Chema Combs MD [address] [place], [place] [id number] 09/19/2023 Office Visit Cardiology Prashant Ruiz, DO [address] [place] [address] Scheduled Procedures Name Priority Associated Diagnoses [...] 08/29/2016 LUNG CANCER SCREENING - USE SMARTSET [id number] Completed 10/01/2017 Zoster Vaccines Completed 12/14/2019, 09/24, [...] Advance Directives occurred with: Patient Care Teams Caterpillar Mechanic Relationship Specialty Start Date End Date Chema Combs MD [address] [facility] [place] [address] PCP - General Family Medicine 07/02/18 documented as of this encounter
--- OUTSIDE RECORDS SUMMARY | 2023-05-22 14:59 | External Medical Summary | Summary of Care ---
Author Name Unknown Organization [facility] Address [address] [facility] [address] Phone [phone] Care Team Providers Care Party Chief Name Role Phone Chema Combs MD Primary Care Provider [phone] Reason for Visit * Reason Onset Date Comments Encounter Created in Error 01/16/2023 Encounter Details Date Type Department Care Team Description 01/16/2023 Office Visit Hematology/Oncology [facility] 200 [facility] [place] [address] Scout Huddleston MD [address] [facility] [place] [address] Encounter created in error Allergies Active Allergy Reactions Severity Noted Date [...] [place], goal below 150/90,PAF (paroxysmal atrial fibrillation) ([facility]) TAKE 1 CAPSULE BY MOUTH [...] on 01/07/2023 Furosemide 20 MG Oral Tablet (Lasix)Indicatio ns:Localized edema Take 1 Tablet by mouth in the morning. 90 Tablet 1 01/10/2023 Active Gabapentin 300 MG Oral Capsule (Neurontin)Indic ations:Essential tremor 3 caps twice daily 540 Capsule 3 01/17/2022 Discontinue d(Medicatio n List Clean Up) documented as of this encounter (statuses as [...] as of this encounter Progress Notes * Lina Tirado RN - 01/16/2023 10:24 AM EDT This encounter was created in error. 01/16/2023, 10:24 AM, Lina Tirado RN documented in this encounter Nursing Notes * Marcela Torres CMA - 01/16/2023 9:01 AM EDT Patient identifed by name and birthdate Do you have any concerns about pain management for today's visit? Yes. Patient instructed to discuss pain concerns with provider during the visit today Living Will or Advance Directive for Health Care as noted on the problem list. [facility] is a way you can talk to your provider on line through e-mail. Would you like to sign up? I can activate it for you? ALREADY ACTIVE Filed Vitals: 01/16/23 0900 BP: 138/79 Pulse: 111 Resp: 16 Temp: 36.8 C (98.3 F) TempSrc: Tympanic SpO2: 95% Weight: 105.7 kg (233 lb 1.6 oz) Patient was instructed to not get [...] Only Hematology Oncology Chand[place], Nurse Hem Onc [facility] [address] [place] [address] 04/30/2023 Office Visit Family Medicine Chema Combs MD [facility] [place] [address] 09/19/2023 Office Visit Cardiology Prashant Ruiz, DO [address] [place] [address] Scheduled Procedures Name Priority Associated Diagnoses Date/Ti [...] 08/29/2016 LUNG CANCER SCREENING - USE SMARTSET [id number] Completed 10/01/2017 Zoster Vaccines Completed 12/14/2019, 09/24, 02/16/2013 GARDASIL-HPV IMMUNIZATION SERIES Aged Out No longer eligible based on patient's age to complete this topic Hepatitis B Aged Out No longer eligi ble based on patient's age to complete this topic documented as of this encounter Medical Devices Not on filedocumented as of this encounter Visit Diagnoses Diagnosis Encounter Created In Error- Primary documented in this encounter Advance Directives Latest Code Status on File Code Status Date Activated Date Inactivated Comments Full Code 12/27/2022 3:40 PM 01/01/2023 8:39 PM This or aj reflects the patients wishes and were consensually agreed upon. Question Answer Comments Discussion of Advance Directives occurred with: Patient Care Teams Party Chief Relationship Specialty Start Date End Date Chema Combs MD [address] [place] [address] PCP - General Family Medicine 07/02/18 documented as of this encounter
--- OUTSIDE RECORDS SUMMARY | 2023-05-22 14:59 | External Medical Summary | Summary of Care ---
Author Name Unknown Organization [facility] Address [address] [place] [facility] [place] [address] Phone [phone] Care Team Providers Care Storage Solutions Architect Name Role Phone Chema Combs MD Primary Care Provider [phone] Reason for Visit * Reason Onset Date Comments Precert Future 01/16/2023 GEMZAR, CISPLATI N, IMFINZI, EMEND Encounter Details Date Type Department Care Team Description 01/16/2023 Telephone Hematology/Oncology Treatment, [place] 200 [facility] [place] [address] Scout Huddleston MD [address] [place] [address] Precert Future (GEMZAR, CISPLATIN, IMFINZI... Allergies Active [...] from the original note were not included. [place] plan built for [id number] Alteration needs updated to follow guidelines, imfinzi [...] Team Description 01/21/2023 Nurse Only Hematology Oncology [place], Nurse Hem Onc [place] [address] [place] [address] 04/30/2023 Office Visit Family Medicine Chema Combs MD [address] [place] [address] 09/19/2023 Office Visit Cardiology Prashant Ruiz, DO [address] [place] [address] Scheduled Orders Name Type Priority Associated Diagnoses [...] 08/29/2016 LUNG CANCER SCREENING - USE SMARTSET [id number] Completed 10/01/2017 Zoster Vaccines Completed 12/14/2019, 09/24, [...] Advance Directives occurred with: Patient Care Teams Storage Solutions Architect Relationship Specialty Start Date End Date Chema Combs MD [address] [place] [address] PCP - General Family Medicine 07/02/18 documented as of this encounter
--- OUTSIDE RECORDS SUMMARY | 2023-05-22 14:59 | External Medical Summary | Summary of Care ---
Author Name Unknown Organization [facility] Address [address] [facility] [place] [place] [address] Phone [phone] Care Team Providers Care Business Information Consultant Name Role Phone Chema Combs MD Primary Care Provider [phone] Reason for Visit * Reason Onset Date Comments Precert Future 01/16/2023 GEMZAR, CISPLATI N, IMFINZI, EMEND Encounter Details Date Type Department Care Team Description 01/16/2023 Telephone Hematology/Oncology Treatment, [place] 200 [facility] [place] [address] Scout Huddleston MD [address] [place] [address] Precert Future (GEMZAR, CISPLATIN, IMFINZI... Allergies Active [...] from the original note were not included. [place] plan built for [id number] Alteration needs updated to follow guidelines, imfinzi [...] Only Hematology Oncology Chandrika, [place] [address] 04/30/2023 Office Visit Family Medicine Chema Combs MD [address] [place] [address] 09/19/2023 Office Visit Cardiology Prashant Ruiz, DO [address] [place] [address] Scheduled Orders Name Type Priority Associated Diagnoses [...] 08/29/2016 LUNG CANCER SCREENING - USE SMARTSET [id number] Completed 10/01/2017 Zoster Vaccines Completed 12/14/2019, 09/24, [...] Advance Directives occurred with: Patient Care Teams Business Information Consultant Relationship Specialty Start Date End Date Chema Combs MD [address] [place] [address] PCP - General Family Medicine 07/02/18 documented as of this encounter
--- OUTSIDE RECORDS SUMMARY | 2023-05-22 14:59 | External Medical Summary | Summary of Care ---
Author Name Unknown Organization [facility] Address [address] [facility] [place] [address] Phone [phone] Care Team Providers Care Filling Hauler Name Role Phone Chema Combs MD Primary Care Provider Reason for Visit * Reason Onset Date Comments Precert Future 01/16/2023 GEMZAR, CISPLATI N, IMFINZI, EMEND Encounter Details Date Type Department Care Team Description 01/16/2023 Telephone Hematology/Oncology Treatment, [place] [address] [facility] [place] [address] Scout Huddleston MD [address] [place] [address] Precert Future (GEMZAR, CISPLATIN, IMFINZI... Allergies Active [...] from the original note were not included. [place] plan built for [id number] Alteration needs updated to follow guidelines, imfinzi [...] Only Hematology Oncology [place], Nurse Hem Onc [facility] [address] [place] [address] 04/30/2023 Office Visit Family Medicine Chema Combs MD [address] [place] [address] 09/19/2023 Office Visit Cardiology Prashant Ruiz DO [address] [place] [address] Scheduled Orders Name Type Priority Associated Diagnoses [...] 08/29/2016 LUNG CANCER SCREENING - USE SMARTSET 33324 Completed 10/01/2017 Zoster Vaccines Completed 12/14/2019, 09/24, [...] Advance Directives occurred with: Patient Care Teams Filling Hauler Relationship Specialty Start Date End Date Chema Combs MD [address] [place] [address] PCP - General Family Medicine 07/02/18 documented as of this encounter
--- OUTSIDE RECORDS SUMMARY | 2023-05-22 14:59 | External Medical Summary | Summary of Care ---
Author Name Unknown Organization [facility] Address [address] [facility] [place] [address] Phone [phone] Care Team Providers Care Bias Binding Folder Name Role Phone Chema Combs MD Primary Care Provider [phone] Encounter Details Date Type Department Care Team Description 01/16/2023 Orders Only Hematology/Oncology, [facility] [address] [place] [address] Scout Huddleston MD [address] [place], [place] [phone] Carcinoma of gall bladder (HCC)* Allergies Active [...] Only Hematology Oncology [place], Nurse Hem Onc [place] [address] [place] [address] 04/30/2023 Office Visit Family Medicine Chema Combs MD [address] [place] [address] 09/19/2023 Office Visit Cardiology Prashant Ruiz, [address] [place] [address] Scheduled Procedures Name Priority Associated Diagnoses Date/Ti [...] 08/29/2016 LUNG CANCER SCREENING - USE SMARTSET [id number] Completed 10/01/2017 Zoster Vaccines Completed 12/14/2019, 09/24, [...] 3:40 PM 01/01/2023 8:39 PM This or ja reflects the patients wishes and were consensually agreed upon. Question Answer Comments Discussion of Advance Directives occurred with: Patient Care Teams Bias Binding Folder Relationship Specialty Start Date End Date Chema Combs MD [address] [place] [address] PCP - General Family Medicine 07/02/18 documented as of this encounter
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
--- OUTSIDE RECORDS SUMMARY | 2023-05-22 14:59 | External Medical Summary | Summary of Care ---
Author Name Unknown Organization [facility] Address [address] [place] [facility] [place] [address] Phone [phone] Care Team Providers Care Laser Print Operator Name Role Phone Chema Combs MD Primary Care Provider Reason for Visit * Reason Onset Date Comments Precert Future 01/16/2023 GEMZAR, CISPLATI N, IMFINZI, EMEND Encounter Details Date Type Department Care Team Description 01/16/2023 Telephone Hematology/Oncology Treatment, [place] [address] [facility] [place] [address] Scout Huddleston MD [address] [place] [address] Precert Future (GEMZAR, CISPLATIN, IMFINZI... Allergies Active [...] from the original note were not included. [place] plan built for [id number] Alteration needs updated to follow guidelines, imfinzi [...] Only Hematology Oncology [place], Nurse Hem Onc [facility] [address] [place] [address] 04/30/2023 Office Visit Family Medicine Chema Combs MD [address] [place] [address] 09/19/2023 Office Visit Cardiology Prashant Ruiz DO [address] [place] [address] Scheduled Orders Name Type Priority Associated Diagnoses [...] 08/29/2016 LUNG CANCER SCREENING - USE SMARTSET [id number] Completed 10/01/2017 Zoster Vaccines Completed 12/14/2019, 09/24, [...] Advance Directives occurred with: Patient Care Teams Laser Print Operator Relationship Specialty Start Date End Date Chema Combs MD [address] [place], [place] [phone] PCP - General Family Medicine 07/02/18 documented as of this encounter
--- OUTSIDE RECORDS SUMMARY | 2023-05-22 15:00 | External Medical Summary | Summary of Care ---
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 90 Tablet 3 01/17/2022 Active Gabapentin 300 MG Oral Capsule (Neurontin)Indicat ions:Essential tremor 3 caps twice daily 540 Capsule 3 01/17/2022 Active Additional Information Patient not taking.Informant: Patient, Reported on 01/10/2023 dilTIAZem HCl ER Coated Beads 120 MG [...] the morning. 90 Tablet 1 01/10/2023 Active documented as of this encounter (statuses as of 01/14/2023) Active Problems Problem Noted Date Transaminitis 12/30/2022 [...] as of this encounter (statuses as of 01/14/2023) Resolved Problems Problem Noted Date Resolved Date [...] Mood swings 04/19/2015 11/20/2016 Bronchitis, complicated 09/08/2014 01/21/20 16 Viral URI with cough 09/08/2014 06/16/2015 [...] 02/06/2008 06/16/2015 PVD (PERIPHERAL VASCULAR DISEASE) PERIPH [facility] SANTY,UNSP 02/06/2008 01/02/2012 Screening for prostate cancer 02/06/2008 Overview: Resolved per Screening Diagnosis Protocol #6 Tobacco use disorder 02/06/2008 01/02/2012 Osteoporosis 02/06/2008 06/16/2015 PAIN IN LIMB, LEFT DISTAL GREAT TOE 02/06/2008 06/16/2015 HTN, goal below 140/90 3 HTN, goal below 140/80 5 documented as of this encounter (statuses as of 01/14/2023) Immunizations Name Administration Dates Next Due COVID-19 [...] Encounters Date Type Specialty Care Team Description 01/16/2023 Office Visit Hematology Oncology Scout Huddleston MD [address] [place] [address] 04/30/2023 Office Visit Family Medicine Chema Combs MD [address] [place] [address] 09/19/2023 Office Visit Cardiology Prashant Ruiz, DO [address] [place] [address] Pending Results Name Type Priority Associated Diagnoses Date /Time CBC WITH WBC DIFFERENTIAL Lab Routine Liver mass 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) 01/14/2023 10:04 AM EDT COMPREHENSIVE METABOLIC PANEL Lab Routine Liver mass 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) 01/14/2023 10:04 AM EDT LD Lab Routine Liver mass 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) 01/14/2023 10:04 AM EDT IMMUNOGLOBULIN QUANTITATIVE Lab Routine Liver mass 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) 01/14/2023 10:04 AM EDT ALPHA-FETOPROTEIN TUMOR MARKER Lab Routine Liver mass 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) 01/14/2023 10:04 AM EDT CBC Lab Routine Liver mass 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) 01/14/2023 10:04 AM EDT DIFFERENTIAL, AUTOMATED Lab Routine Liver mass 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) 01/14/2023 10:04 AM EDT Scheduled Procedures Name Priority Associated [...] 12/11/2022, 06/28, 07/06/2021, Additional history exists GFR 01/02/2024 01/01/2023, 08/11/2022, 12/30/2022, Additional history exists O2 ASSESSMENT COMPLETED IN PAST YEAR FOR COPD 01/11/2024 01/10/2023 Colonoscopy 07/06/2026 07/06/2016, 07/06/2016 Colorectal Cancer Screening [...] 08/29/2016 LUNG CANCER SCREENING - USE SMARTSET 33756 Completed 10/01/2017 Zoster Vaccines Completed 12/14/2019, 09/24, 02/16/2013 GARDASIL-HPV IMMUNIZATION SERIES Aged Out No longer eligible based on patient's age to complete this topic Hepatitis B Aged Out No longer eligi ble based on patient's age to complete this topic documented as of this encounter Medical Devices Not on filedocumented as of this encounter Visit Diagnoses Diagnosis Localized edema Edema KARISSA (acute kidney injury) (HCC) Acute kidney failure, unspecified Therapeutic drug monitoring Encounter for therapeutic drug monitoring Liver mass Unspecified disorder of liver Chronic lymphocytic 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 [...] Advance Directives occurred with: Patient Care Teams Feed Weigher Relationship Specialty Start Date End Date Chema Combs MD [address], [place] [id number] PCP - General Family Medicine 07/02/18 documented as of this encounter
--- OUTSIDE RECORDS SUMMARY | 2023-05-22 15:00 | External Medical Summary | Summary of Care ---
Author Name Unknown Organization [facility] Address [address] [facility] [address] Phone [phone] Care Team Providers Care Hogshead Opener Name Role Phone Chema Combs MD Primary Care Provider [phone] Reason for Visit * Reason Onset Date Comments Appointment 01/07/2023 Dr. Huddleston Encounter Details Date Type Department Care Team Description 01/07/2023 Telephone Hematology/Oncology [facility] [place] [address] [place] [address] Scout Huddleston MD [address] [place] [address] Appointment (Dr. Huddleston) Allergies Active Allergy Reactions Severity Noted Date Comments Lisinopril Cough Low 08/18/2009 documented as of this encounter (statuses as of 01/08/2023) Medications Medication Sig Dispensed Refills Start Date [...] twice daily 540 Capsule 3 01/17/2022 Active dilTIAZem HCl ER Coated [...] 06/28/2022 Active Furosemide 20 MG Oral Tablet (Lasix)Indications :Localized edema TAKE 2 TABLETS BY MOUTH EVERY DAY 180 Tablet 1 12/31/2022 Active oxyCODONE HCl 5 MG Oral Tablet (Oxy IR) Take 1 Tablet by mouth every 6 hours as needed for moderate pain 12 Tablet 0 01/01/2023 Active Additional Information Patient not taking.Reported on 01/07/2023 documented as of this encounter (statuses as of 01/08/2023) Active Problems Problem Noted Date Transaminitis 12/30/2022 [...] as of this encounter (statuses as of 01/08/2023) Resolved Problems Problem Noted Date Resolved Date [...] 02/06/2008 06/16/2015 PVD (PERIPHERAL VASCULAR DISEASE) [facility],UNSP 02/06/2008 01/02/2012 Screening for prostate cancer 02/06/2008 Overview: Resolved per Screening Diagnosis Protocol #6 Tobacco use disorder 02/06/2008 01/02/2012 Osteoporosis 02/06/2008 06/16/2015 PAIN IN LIMB, LEFT DISTAL GREAT TOE 02/06/2008 06/16/2015 HTN, goal below 140/90 3 HTN, goal below 140/80 5 documented as of this encounter (statuses as of 01/08/2023) Immunizations Name Administration Dates Next Due COVID-19 [...] Telephone Encounter - Reyna Heard RN - 01/08/2023 8:59 AM EDT Patient saw Dr Tirado yesterday. MyGenver pending still- likely to be back before 01/16/23 appt. Scheduling: please call patient to schedule lab work "CBCd, CMP, LD, Ig, AFP" 1- [address] Huddleston's appt. Thanks! * Telephone Encounter - KRYSTIN Sena - 01/07/2023 9:57 AM EDT Pt called in regarding his appt that is scheduled on 01/30/23. He stated that this appt was made out that far as they were waiting on reports to come back in before being seen again. Pt states that thereports are in and asked to have a sooner appt. Pt stated that he can not start chemo or anything until he has this appt and really needed to moved up to get things started. I did try to reach out to the office to check if this sunshine be okay to move forward. Was unable to reach. Pt insisted it would be okay to be seen sooner. I did reschedule for a sooner appt on 01/16 with the pt understanding that if this appt was not okay that it would be moved back. Pt stated understanding documented in this encounter Plan of Treatment Upcoming Encounters Date Type Specialty Care Team Description 01/10/2023 Office Visit Family Chema Moran MD [address] [place] [address] 01/16/2023 Office Visit Hematology Oncology Scout Huddleston MD [address] [place] [address] 01/23/2023 Office Visit Family Medicine Chema Combs MD [address] [place] [address] 01/23/2023 Laboratory Laboratory [place] [address] [facility] [place] [address] 09/19/2023 Office Visit Cardiology Prashant Ruiz, DO [address] [place] [address] Scheduled Procedures Name Priority Associated Diagnoses Date/Ti [...] ASSESSMENT COMPLETED IN PAST YEAR FOR COPD 01/08/2024 01/07/2023 Colonoscopy 07/06/2026 07/06/2016, 07/06/2016 Colorectal Cancer Screening [...] 08/29/2016 LUNG CANCER SCREENING - USE SMARTSET 97154 Completed 10/01/2017 Zoster Vaccines Completed 12/14/2019, 09/24, [...] Advance Directives occurred with: Patient Care Teams Hogshead Opener Relationship Specialty Start Date End Date Chema Combs MD [address] [place] [address] PCP - General Family Medicine 07/02/18 documented as of this encounter
--- OUTSIDE RECORDS SUMMARY | 2023-05-22 15:00 | External Medical Summary ---
Author Name Unknown Address Unknown Organization K01:[place] [facility] [address] [address] Laboratory Report Ordering Provider Test Date Status MARLON ORTEGA 01/14/2023 10:04:19 Final Observation Date Value Abnormality Reference (Units ) Status LDH 01/14/2023 10:04:19 185 <=250 (U/L ) Final Performing Location LABORATORY [facility] - [address] [place] [address]
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
--- OUTSIDE RECORDS SUMMARY | 2023-05-22 15:00 | External Medical Summary ---
Author Name Unknown Address Unknown Organization K01:[facility] [place] [address] [facility] [place] [id number] Laboratory Report Ordering Provider Test Date Status MARLON ORTEGA 01/14/2023 10:04:19 Final Observation Date Value Abnormality Reference (Units ) Status BUN 01/14/2023 10:04:19 14 6-20 (mg/dL) Final Creatinine 01/14/2023 10:04:19 1.1 0.6-1.2 (mg/dL) Final Glomerular filtration rate/1.73 sq M.predicted [Volume Rate/Area] in Serum, Plasma or Blood by Creatinine-based formula (CKD-EPI) 01/14/2023 10:04:19 75 >=60 (mL/min) Final eGFR is calculated based on the CKD-EPI 2020 equation SODIUM 01/14/2023 10:04:19 141 135-146 (m mol/L) Final Potassium 01/14/2023 10:04:19 3.7 3.5-5.1 (m mol/L) Final Cl 01/14/2023 10:04:19 100 98-107 (mm ol/L) Final CO2 01/14/2023 10:04:19 29 22-32 (mmo l/L) Final Anion gap 01/14/2023 10:04:19 12 7-15 (mmol /L) Final Glucose 01/14/2023 10:04:19 123 Above high normal 70 -120 (mg/dL) Final Albumin 01/14/2023 10:04:19 4.2 3.8-5.0 (g /dL) Final AST (Aspartate aminotransferase) 01/14/2023 10:04:19 36 10-50 (U/L) Fin al Alk Phos 01/14/2023 10:04:19 243 Above high normal 35 -130 (U/L) Final Bilirubin, Total 01/14/2023 10:04:19 0.7 <=1 .2 (mg/dL) Final Calcium 01/14/2023 10:04:19 9.8 8.4-10.2 ( mg/dL) Final Protein 01/14/2023 10:04:19 6.0 6.0-8.3 (g /dL) Final ALT (Alanine aminotransferase) 01/14/2023 10:04:19 32 10-50 (U/L) Donell matthew Performing Location LAB[facility]ORY [facility] [place] [address] [facility] [address]
--- OUTSIDE RECORDS SUMMARY | 2023-05-22 15:00 | External Medical Summary | Summary of Care ---
Author Name Unknown Organization [facility] Address [address] [facility] [address] Phone [phone] Care Team Providers Care Drapery Hanger Name Role Phone Chema Combs MD Primary Care Provider [phone] Reason for Visit * Reason Onset Date Comments Appointment 01/07/2023 Dr. Huddleston Encounter Details Date Type Department Care Team Description 01/07/2023 Telephone Hematology/Oncology [facility] [address] [place] [address] Scout Huddleston MD [address] [place] [address] Appointment (Dr. Huddleston) Allergies Active Allergy Reactions [...] 02/06/2008 06/16/2015 PVD (PERIPHERAL VASCULAR DISEASE) [facility] S[facility],UNSP 02/06/2008 01/02/2012 Screening for prostate [...] * Telephone Encounter - KRYSTIN Bonilla - 01/08/2023 9:09 AM EDT Called and spoke to patient and he is scheduled for lab work on 01/14/23. * Telephone Encounter - Reyna Heard RN [...] Family Medicine [facility] [address] [facility] [address] 01/14/2023 Laboratory Laboratory [facility] [address] [facility] [place] [address] 01/16/2023 Office Visit Hematology Oncology Scout Huddleston MD [address] [place] [address] 01/23/2023 Office Visit Family Medicine Chema Combs MD [address] [place] [address] 01/23/2023 Laboratory Laboratory [place], [address] [place] [address] 09/19/2023 Office Visit Cardiology Prashant Ruiz, DO [address] [place] [address] Scheduled Procedures Name Priority Associated Diagnoses Date/Ti [...] 02/2 07/2022, 07/06/2021, Additional history exists GFR 01/02/2024 01/01/2023, 08/0 11/2022, 12/30/2022, Additional history exists O2 ASSESSMENT COMPLETED [...] 08/29/2016 LUNG CANCER SCREENING - USE SMARTSET [id number] Completed 10/01/2017 Zoster Vaccines Completed 12/14/2019, 09/24, [...] Advance Directives occurred with: Patient Care Teams Drapery Hanger Relationship Specialty Start Date End Date Chema Combs MD [address] [place] [address] PCP - General Family Medicine 07/02/18 documented as of this encounter
--- OUTSIDE RECORDS SUMMARY | 2023-05-22 15:00 | External Medical Summary | Summary of Care ---
Author Name Unknown Organization [facility] Address [address] [place] [address] Phone [phone] Care Team Providers Care Special Needs Nanny Name Role Phone Chema Combs MD Primary Care Provider [phone] Encounter Details Date Type Department Care Team Description 01/15/2023 Orders Only Hematology/Oncology, [facility] [address] [place] [address] Scout Huddleston MD [address] [place], [place] [id number] Allergies Active Allergy Reactions Severity Noted Date Comments Lisinopril Cough Low 08/18/2009 documented as of this encounter (statuses as of 01/15/2023) Medications Medication Sig Dispensed Refills Start Date [...] as of this encounter (statuses as of 01/15/2023) Active Problems Problem Noted Date Transaminitis 12/30/2022 [...] as of this encounter (statuses as of 01/15/2023) Resolved Problems Problem Noted Date Resolved Date [...] 06/16/2015 PVD (PERIPHERAL VASCULAR DISEASE) PERIPH [place] BENITEZ SANTY,UNSP 02/06/2008 01/02/2012 Screening for prostate cancer 02/06/2008 Overview: Resolved per Screening Diagnosis Protocol #6 Tobacco use disorder 02/06/2008 01/02/2012 Osteoporosis 02/06/2008 06/16/2015 PAIN IN LIMB, LEFT DISTAL GREAT TOE 02/06/2008 06/16/2015 HTN, goal below 140/90 3 HTN, goal below 140/80 5 documented as of this encounter (statuses as of 01/15/2023) Immunizations Name Administration Dates Next Due COVID-19 [...] Visit Hematology Oncology Scout Huddleston MD [address] [place] [address] 04/30/2023 Office Visit Family Medicine Chema Combs MD [address] [place] [address] 09/19/2023 Office Visit Cardiology Prashant Ruiz, DO [address] [place] [address] Scheduled Procedures Name Priority Associated Diagnoses Date/Ti [...] IN PAST YEAR FOR COPD 01/11/2024 01/10/2023 GFR 01/15/2024 01/14/2023, 08/0 12/2022, 12/31/2022, Additional [...] 08/29/2016 LUNG CANCER SCREENING - USE SMARTSET [id number] Completed 10/01/2017 Zoster Vaccines Completed 12/14/2019, 09/24, [...] Directives occurred with: Patient Care Teams Special Needs Nanny Relationship Specialty Start Date End Date Chema Combs MD [address] [place] [address] PCP - General Family Medicine 07/02/18 documented as of this encounter
--- OUTSIDE RECORDS SUMMARY | 2023-05-22 15:00 | External Medical Summary ---
Author Name Unknown Address Unknown Organization K01:[facility]ATORY [facility] - [address] [place] [address] Laboratory Report Ordering Provider Test Date Status MARLON ORTEGA 01/14/2023 10:04:19 Final Observation Date Value Abnormality Reference (Units ) Status IgG 01/14/2023 10:04:19 671 Below low normal 700 -1600 (mg/dL) Final IgA 01/14/2023 10:04:19 23 Below low normal 70- 400 (mg/dL) Final IgM 01/14/2023 10:04:19 42 40-230 (mg /dL) Final Performing Location [facility] - [address] [place] [address]
--- OUTSIDE RECORDS SUMMARY | 2023-05-22 15:00 | External Medical Summary ---
Author Name Unknown Address Unknown Organization [id number]:LABORATORY [facility] - [address] [facility] [place] [address] Laboratory Report Ordering Provider Test Date Status MARLON ORTEGA 01/14/2023 10:04:19 Final Observation Date Value Abnormality Reference (Units ) Status SYNC LEUKOCYTES IN BLOOD BY AUTOMATED COUNT 01/14/2023 10:04:19 21.24 Above high normal 4.00-10.80 (K/uL) Final Segs 01/14/2023 10:04:19 30.5 Below low normal 40.0-75.0 (%) Final Lymphs % 01/14/2023 10:04:19 62.5 Above high normal 18.0-42.0 (%) Final Monos 01/14/2023 10:04:19 5.3 1.0-11.0 (%) Final Eosinophils 01/14/2023 10:04:19 0.8 0.0-6.0 (%) Final Basos 01/14/2023 10:04:19 0.6 0.0-2.0 (%) Final Immature Granulocyte, Percent 01/14/2023 10:04:19 0.3 0.0-2.0 (%) Final Absolute Segs 01/14/2023 10:04:19 6.49 1.80-7.70 (K/uL) Final Lymphs, absolute 01/14/2023 10:04:19 13.27 Above high normal 1.00-4.80 (K/ul) Final Monos, Abs 01/14/2023 10:04:19 1.12 Above high normal 0.00-1.10 (K/uL) Final Eos, Abs 01/14/2023 10:04:19 0.16 0.00-0.70 (K/uL) Final Basos, Abs 01/14/2023 10:04:19 0.13 0.00-0.20 (K/uL) Final Immature Granulocytes, Number 01/14/2023 10:04:19 0.07 0.00-0.20 (K/uL) Final Performing Location LABORATORY [facility] - [facility] [address] [facility] [address]
--- OUTSIDE RECORDS SUMMARY | 2023-05-22 15:00 | External Medical Summary | Summary of Care ---
Author Name Unknown Organization [facility] Address [address] [facility] [address] Phone [phone] Care Team Providers Care Errand Runner Name Role Phone Chema Combs MD Primary Care Provider [phone] Reason for Visit * Reason Onset Date Comments Appointment 01/07/2023 Dr. Huddleston Encounter Details Date Type Department Care Team Description 01/07/2023 Telephone Hematology/Oncology [facility] [place] [address] [place] [address] Scout Huddleston MD [address] [place] [address] Appointment (Dr. Huddleston) Allergies Active Allergy Reactions Severity Noted Date Comments Lisinopril Cough Low 08/18/2009 documented as of this encounter (statuses as of 01/07/2023) Medications Medication Sig Dispensed Refills Start Date [...] as of this encounter (statuses as of 01/07/2023) Active Problems Problem Noted Date Transaminitis 12/30/2022 [...] as of this encounter (statuses as of 01/07/2023) Resolved Problems Problem Noted Date Resolved Date [...] 02/06/2008 06/16/2015 PVD (PERIPHERAL VASCULAR DISEASE) [facility]ANT[facility]UNSP 02/06/2008 01/02/2012 Screening for prostate cancer 02/06/2008 Overview: Resolved per Screening Diagnosis Protocol #6 Tobacco use disorder 02/06/2008 01/02/2012 Osteoporosis 02/06/2008 06/16/2015 PAIN IN LIMB, LEFT DISTAL GREAT TOE 02/06/2008 06/16/2015 HTN, goal below 140/90 3 HTN, goal below 140/80 5 documented as of this encounter (statuses as of 01/07/2023) Immunizations Name Administration Dates Next Due COVID-19 [...] Miscellaneous Notes * Telephone Encounter - KRYSTIN Sena - [...] Visit Family Medicine Chema Combs MD [address] [place] [address] 01/16/2023 Office Visit Hematology Oncology Scout Huddleston MD [address] [place] [address] 01/23/2023 Office Visit Family Medicine Chema Combs MD [address] [place] [address] 01/23/2023 Laboratory [facility] [place] [address] [place] [address] 09/19/2023 Office Visit Cardiology Prashant Ruiz, DO [address] [place] [address] Scheduled Procedures Name Priority Associated Diagnoses Date/Ti [...] 08/29/2016 LUNG CANCER SCREENING - USE SMARTSET [id number] Completed 10/01/2017 Zoster Vaccines Completed 12/14/2019, 09/24, [...] Advance Directives occurred with: Patient Care Teams Errand Runner Relationship Specialty Start Date End Date Chema Combs MD [address] [place] [address] PCP - General Family Medicine 07/02/18 documented as of this encounter
--- OUTSIDE RECORDS SUMMARY | 2023-05-22 15:00 | External Medical Summary ---
Author Name Unknown Address Unknown Organization K01:LABORATORY [place] [address] [place] [address] Laboratory Report Ordering Provider Test Date Status MARLON ORTEGA 01/14/2023 10:04:19 Final Observation Date Value Abnormality Reference (Units ) Status WBC, Total 01/14/2023 10:04:19 21.24 Above high normal 4.00-10.80 (K/uL) Final RBC 01/14/2023 10:04:19 4.52 4.50-5.25 (M/uL) Final Hemoglobin 01/14/2023 10:04:19 13.6 Below low normal 14.0-16.8 (g/dL) Final HCT 01/14/2023 10:04:19 41.6 40.0-48.4 (%) Final MCV 01/14/2023 10:04:19 92.0 82.0-99.5 (fL) Final MCH 01/14/2023 10:04:19 30.1 27.0-34.0 (pg) Final MCHC 01/14/2023 10:04:19 32.7 32.0-36.0 (g/dL) Final RDW 01/14/2023 10:04:19 14.4 11.5-15.5 (%) Final Platelets 01/14/2023 10:04:19 319 140-400 (K/uL) Final MPV 01/14/2023 10:04:19 10.4 6.6-11.1 (fL) Final Nucleated erythrocytes/100 leukocytes [Ratio] in Blood by Automated count 01/14/2023 10:04:19 0 <=0 (/100 WBCs) Final Performing Location LABORATORY [facility] - [address] [place] [address]
--- OUTSIDE RECORDS SUMMARY | 2023-05-22 15:00 | External Medical Summary ---
Author Name Unknown Address Unknown Organization K01:LABORATORY [facility] - [address] [place] [address] Laboratory Report Ordering Provider Test Date Status MARLON ORTEGA 01/14/2023 10:04:19 Final Observation Date Value Abnormality Reference (Units ) Status Alpha-Fetoprotein 01/14/2023 10:04:19 3.7 0. 0-8.3 (ng/mL) Final Performing Location LABORATORY [facility] - [address] [place] [address]
--- OUTSIDE RECORDS SUMMARY | 2023-05-22 15:00 | External Medical Summary | Summary of Care ---
Author Name Unknown Organization [facility] Address [address] [place] [address] Phone [phone] Care Team Providers Care Professor Of History Name Role Phone Chema Combs MD Primary Care Provider [phone] Reason for Visit * Reason Onset Date Comments Appointment 01/03/2023 Encounter Details Date Type Department Care Team Description 01/03/2023 Telephone General Surgery, [place] [address] [place] [address] Anthony Tirado MD [address] [place] [address] Appointment Allergies Active Allergy Reactions Severity Noted Date Comments Lisinopril Cough Low 08/18/2009 documented as of this encounter (statuses as of 01/03/2023) Medications Medication Sig Dispensed Refills Start Date [...] Information Patient not taking.Informant: Patient, Reported on 12/27/2022 dilTIAZem HCl ER Coated Beads 120 MG [...] moderate pain 12 Tablet 0 01/01/2023 Active documented as of this encounter (statuses as of 01/03/2023) Active Problems Problem Noted Date Transaminitis 12/30/2022 [...] as of this encounter (statuses as of 01/03/2023) Resolved Problems Problem Noted Date Resolved Date [...] as of this encounter (statuses as of 01/03/2023) Immunizations Name Administration Dates Next Due COVID-19 [...] encounter Miscellaneous Notes * Telephone Encounter - Bria Peace RN - 01/03/2023 4:53 PM EDT Patient scheduled with Dr Dong 01/07/[address] Tirado 01/22/23. Patient has far drive and message to Dr Tirado to see if patinet can be added 01/07/23. Dr Tirado responded that appointment with Dr Dong could be cancelled. Message to Mariela Remy LPN. Ok with plan to only follow up with Dr Tirado. Call to patient. Patient identified by name and date of . Patient was going to [facility] tomorrow to see if he needed both and he is agreeable to follow up with only Dr Tirado. Appointment 01/07/[address] Dong cancelled. Patient would like Saturday if pathology is back. If not, he will keep 01/22/23. Pathology report is available. Patient accepted appointment with Dr Tirado @ 0920 on 01/07/23. documented in this encounter Plan of Treatment Upcoming Encounters Date Type Specialty Care Team Description 01/07/2023 Office Visit General Surgery Anthony Tirado MD [address] [place] [address] 01/10/2023 Office Visit Family Medicine Chema Combs MD [address] [place] [address] 01/23/2023 Office Visit Family Medicine Chema Combs MD [address] [place] [address] 01/23/2023 Laboratory [facility] [place] [address] [place] [address] 01/30/2023 Office Visit Hematology Oncology Scout Huddleston MD [address] [place] [address] 09/19/2023 Office Visit Cardiology Prashant Ruiz, DO [address] [place] [address] Scheduled Procedures Name Priority Associated Diagnoses Date/Ti [...] ASSESSMENT COMPLETED IN PAST YEAR FOR COPD 01/03/2024 01/02/2023 Colonoscopy 07/06/2026 07/06/2016, 07/06/2016 Colorectal Cancer Screening [...] 08/29/2016 LUNG CANCER SCREENING - USE SMARTSET 58683 Completed 10/01/2017 Zoster Vaccines Completed 12/14/2019, 09/24, [...] Advance Directives occurred with: Patient Care Teams Professor Of History Relationship Specialty Start Date End Date Chema Combs MD [address] [place] [address] PCP - General Family Medicine 07/02/18 documented as of this encounter
--- OUTSIDE RECORDS SUMMARY | 2023-05-22 15:00 | External Medical Summary | Summary of Care ---
Author Name Unknown Organization [facility] Address [address] [place] [facility] [place] [address] Phone [phone] Care Team Providers Care Campaign Fundraiser Name Role Phone Chema Combs MD Primary Care Provider [phone] Reason for Visit * Reason Onset Date Comments Hospital Follow-Up Hospital Follow-Up 01/10/2023 Encounter Details Date Type Department Care Team Description 01/10/2023 Office Visit [facility] [address] [place] [address] Chema Combs MD [address] [place] [address] Hospital discharge follow-up*; Localized edema Allergies Active Allergy Reactions Severity Noted Date Comments Lisinopril Cough Low 08/18/2009 documented as of this encounter (statuses as of 01/10/2023) Medications Medication Sig Dispensed Refills Start Date [...] 01/17/2022 Active Gabapentin 300 MG Oral Capsule (Neurontin)Indic ations:Essential tremor 3 caps twice daily 540 Capsule 3 01/17/2022 Active Additional Information Patient not taking.Informant: Patient, Reported on 01/10/2023 dilTIAZem HCl ER Coated Beads 120 MG Oral Capsule Extended Release 24 Hour (Cardizem CD)Indications:H TN, goal below 150/90,PAF (paroxysmal atrial fibrillation) ([facility]) TAKE 1 CAPSULE BY MOUTH EVERY [...] the morning. 90 Tablet 1 01/10/2023 Active Furosemide 20 MG Oral Tablet (Lasix)Indicatio ns:Localized edema TAKE 2 TABLETS BY MOUTH EVERY DAY 180 Tablet 1 12/31/2022 Discontinue d(Refill) documented as of this encounter (statuses as of 01/10/2023) Active Problems Problem Noted Date Transaminitis 12/30/2022 [...] as of this encounter (statuses as of 01/10/2023) Resolved Problems Problem Noted Date Resolved Date [...] Prediabetes 01/02/2012 11/20/2016 History of tobacco use 01/02/201211/20/ 7 Overview: quit 03/10/09 Routine medical exam [...] as of this encounter (statuses as of 01/10/2023) Immunizations Name Administration Dates Next Due COVID-19 [...] Sign Reading Time Taken Comments Blood Pressure 128/60 01/10/2023 10:15 AM EDT Pulse 70 01/10/2023 10:15 AM EDT Temperature - - Respiratory Rate 18 01/10/2023 10:15 AM EDT Oxygen Saturation 98% 01/10/2023 10:15 AM EDT Inhaled Oxygen Concentration - - Weight 105.2 kg (232 lb) 01/10/2023 10:15 AM EDT Height 182.9 cm (6') 01/10/2023 10:15 AM EDT Body Mass Index 31.46 01/10/2023 10:15 AM EDT documented in this [...] Progress Notes * Chema Combs MD - 01/10/2023 3:49 PM EDT Subjective: Jh Fields is a 72 year old male. Chief Complaint Patient presents with Hospital Follow-Up Hospital Follow-Up HPI: 72-y the ear-old seen today after recent hospitalization [facility]. He has a history of CLL I will and hypertension and some diffuse osteoarthritis and paroxysmal atrial fibrillation. He had developed right upper quadrant abdominal pain. He was seen in the [facility] office or further evaluation included imaging which ultimately showed an abnormal liver/gallbladder. He wasthen referred for admission at [facility]. 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 There was evidence of cancer in surrounding Um liver. He is aware of diagnosis. He was told that this would be potentially treatable but not curable. He has an appointment in 6 days time to see oncology-Dr. Huddleston whom he is very familiar with as he Dr. Huddleston followed him for CLL. He had 1 severe episode of upper abdominal pain [facility] in that seem to follow a meal that included/potatoes and gravy. He has not had any abdominal discomfort since but he is Um being careful with his diet. He is trying to avoid fatty foods. He indicated that he has wall where the diagnosis and he knows that the prognosis is extremely poor. Patient Active Problem List Diagnosis Code Chronic 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 ([facility]) C91.10 Dyslipidemia, goal LDL below 100 E78.5 COPD, mild ([facility]) J44.9 POLST (Physician Orders for Life-Sustaining Treatment) Z78.9 HTN, goal below 150/90 I10 Primary osteoarthritis of cervical spine M47.812 Primary osteoarthritis of lumbar spine M47.816 Primary osteoarthritis of one hip M16.10 MEDICATION USE AGREEMENT [id number] Encounter for long-term (current) use of medications Z79.899 PAF (paroxysmal atrial fibrillation) ([facility]) I48.0 Essential tremor G25.0 Prediabetes R73.03 Liver mass R16.0 Transaminitis R74.01 Current Outpatient Medications Medication Sig Dispense Refill VITAMIN D 1000 UNITS PO CAPS Take 2 Capsules by mouth in the morning. 60 Cap 11 Acetaminophen 500 MG Capsule Take 2 Capsules by mouth every 6 hours as needed for Fever >38C(100.5F) or Pain, Mild. aspirin enteric coated 81 MG TBEC Take 1 Tablet by mouth in the morning. Qdugoejaouj-Fjzohpsnw-Djdgyu 100-62.5-25 MCG/ACT Aerosol Powder Breath Activated Inhale [...] mouth in the morning. 90 Tablet 1 Gabapentin 300 MG Oral Capsule (Neurontin) 3 caps twice daily (Patient not taking: Reported on 01/10/2023) 540 Capsule 3 oxyCODONE HCl 5 MG Oral Tablet (Oxy IR) Take 1 Tablet by mouth every 6 hours as needed for moderatepain (Patient not taking: Reported on 01/07/2023) 12 Tablet 0 No current facility-administered medications for this visit. 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 Follow-up with Dr. Huddleston possible chemotherapy. I brought up the option of seeing palliative medicine. He wants to hold off on that for now. See again in 2 months. I told him that he could message me if having any difficulties. Ultimately plan would be to keep him as comfortable as possible. Check-out note: Cancel apt later this month with me. Hoang 2 months Chema Combs MD documented in this encounter Nursing Notes * Alanna Javier LPN - 01/10/2023 10:20 AM EDT The patient has been properly identified by confirmation of name and date of . Chief Complaint Patient presents with Hospital Follow-Up documented in this encounter Plan of Treatment Upcoming Encounters Date Type Specialty Care Team Description 01/14/2023 Laboratory Laboratory [facility] [address] [place] [address] 01/16/2023 Office Visit Hematology Oncology [facility] [address] [facility] [address] 04/30/2023 Office Visit Family Medicine Chema Combs MD [address] [place] [facility] [place] [address] 09/19/2023 Office Visit Cardiology Prashant Ruiz, DO [address] [place] [address] Scheduled Procedures Name Priority Associated Diagnoses Date/Ti [...] 07/06/2021, Additional history exists GFR 01/02/2024 01/01/2023, 0811/2022, 12/30/2022, Additional history exists O2 ASSESSMENT COMPLETED [...] 08/29/2016 LUNG CANCER SCREENING - USE SMARTSET 19163 Completed 10/01/2017 Zoster Vaccines Completed 12/14/2019, 09/24, 02/16/2013 GARDASIL-HPV IMMUNIZATION SERIES Aged Out No longer eligible based on patient's age to complete this topic Hepatitis B Aged Out No longer eligi ble based on patient's age to complete this topic documented as of this encounter Medical Devices Not on filedocumented as of this encounter Visit Diagnoses Diagnosis Hospital discharge follow-up- Primary Other follow-up examination Localized edema Edema documented in this encounter Advance Directives Latest Code Status on File Code Status Date Activated Date Inactivated Comments Full Code 12/27/2022 3:40 PM 01/01/2023 8:39 PM This or aj reflects the patients wishes and were consensually agreed upon. Question Answer Comments Discussion of Advance Directives occurred with: Patient Care Teams Campaign Fundraiser Relationship Specialty Start Date End Date Chema Combs MD [address], [place] [id number] PCP - General Family Medicine 07/02/18 documented as of this encounter"
[2023-05-22] MEDS ORDERED: Patient's WEIGHT Needed STA (15:01)
--- OUTSIDE RECORDS SUMMARY | 2023-05-22 15:01 | External Medical Summary ---
Author Name Unknown Address Unknown Organization K01:LABORATORY [facility] [place] [address] [place] [address] Laboratory Report Ordering Provider Test Date Status HENRIK KHANFATOUMATAANMOL 01/01/2023 07:31:00 Final Observation Date Value Abnormality Reference (Units ) Status BUN 01/01/2023 07:31:00 21 Above high normal 6-20 (mg/dL) Final Creatinine 01/01/2023 07:31:00 1.1 0.6-1.2 (mg/dL) Final Glomerular filtration rate/1.73 sq M.predicted [Volume Rate/Area] in Serum, Plasma or Blood by Creatinine-based formula (CKD-EPI) 01/01/2023 07:31:00 71 >=60 (mL/min) Final eGFR is calculated based on the CKD-EPI 2020 equation SODIUM 01/01/2023 07:31:00 135 135-146 (m mol/L) Final Potassium 01/01/2023 07:31:00 Final Specimen too hemolyzed. Reor aj if needed. Cl 01/01/2023 07:31:00 101 98-107 (mm ol/L) Final CO2 01/01/2023 07:31:00 24 22-32 (mmo l/L) Final Anion gap 01/01/2023 07:31:00 10 7-15 (mmol /L) Final Glucose 01/01/2023 07:31:00 117 70-120 (mg /dL) Final Calcium 01/01/2023 07:31:00 9.2 8.4-10.2 ( mg/dL) Final Performing Location LAB[facility]ATORY [facility] - [address] [place] [address]
--- OUTSIDE RECORDS SUMMARY | 2023-05-22 15:01 | External Medical Summary | Summary of Care ---
Author Name Unknown Organization [facility] Address [address] [place] [address] Phone [phone] Care Team Providers Care Metal Extrusion Supervisor Name Role Phone Chema Combs MD Primary Care Provider [phone] Reason for Visit * Reason Comments Abnormal Test Results * Auth/Cert Specialty Diagnoses / Procedures Referred By Contac t Referred To Contact Diagnoses CLL, Liver abscesses Referral ID Status Reason Start Date Expiration Date Visits Re quested Visits Authorized [id number] Encounter Details Date Type Department Care Team Description 12/27/2022 - 01/01/2023 Hospital Encounter [id number] [facility] 7th Floor [address] [place] [address] Hugo Chaudhary MD [address] [place] [address] Naya Diane MD [address] [place] [address] Isreal Gallagher MD [address], [place] [id number] Pt Handout (on AVS) Allergies Active Allergy Reactions Severity Noted Date Comments Lisinopril Cough Low 08/18/2009 documented as of this encounter (statuses as of 01/02/2023) Medications Medication Sig Dispensed Refills Start Date End Date Status VITAMIN D 1000 UNITS PO CAPSIndications :Vitamin D deficiency Take 2 Capsules by mouth in the morning. 60 Cap 11 4 Active Acetaminophen 500 MG Capsule Take 2 [...] Tab by mouth daily. 30 Tab 5 9 Active levalbuterol (XOPENEX) 1.25 MG/3ML nebulizer solution Inhale 1 Ampule via nebulizer every 8 hours as needed for Shortness of Breath or Wheezing. 5 9 Active Albuterol Sulfate HFA 108 (90 Base) MCG/ACT Inhalation Aerosol Solution Inhale 2 Puffs by mouth every 4 hours as needed for Wheezing or Shortness of Breath. 0 1 Active metFORMIN HCl ER 500 MG Oral Tablet Extended Release 24 Hour (Glucophage XR)Indications: Prediabetes Take by mouth 1 Tablet in the morning. 90 Tablet 3 2 Active Atorvastatin Calcium 20 MG Oral Tablet (Lipitor)Indica tions:Dyslipide balaji, goal LDL below 100 Take by mouth 1 Tablet in the morning. 90 Tablet 3 2 Active Gabapentin 300 MG Oral Capsule (Neurontin)Valerie cations:Essenti al tremor 3 caps twice daily 540 Capsule 3 2 Active Additional Information Patient not taking.Informant: Patient, Reported on 12/27/2022 dilTIAZem HCl ER Coated Beads 120 MG Oral Capsule Extended Release 24 Hour (Cardizem CD)Indications: HTN, goal below 150/90,PAF (paroxysmal atrial fibrillation) ([facility]) TAKE 1 CAPSULE BY MOUTH EVERY DAY 90 Capsule 3 3 Active Eliquis 5 MG Oral Tablet (Apixaban)Indic ations:PAF (paroxysmal atrial fibrillation) ([facility]) TAKE 1 TABLET BY MOUTH TWICE A DAY 180 Tablet 3 3 Active Metoprolol Tartrate 50 MG Oral Tablet (Lopressor)Valerie cations:HTN, goal below 150/90,PAF (paroxysmal atrial fibrillation) ([facility]) TAKE 1 TABLET BY MOUTH TWICE A DAY 180 Tablet 3 3 Active oxyCODONE HCl 5 MG Oral Tablet (Oxy IR) Take 1 Tablet by mouth every 6 hours as needed for moderate pain 12 Tablet 0 3 Active citalopram (CELEXA) 20 MG TabletIndicatio ns:Mood swings Take 1 Tab by mouth daily. 90 Tab 3 7 12/28/19 23 Discontinued(Med ication List Clean Up) Gabapentin 300 MG Oral Capsule (Neurontin) Taking 3 in AM and 3 in PM 0 12/28/19 23 Discontinued(Med ication List Clean Up) Furosemide 20 MG Oral Tablet (Lasix)Indicati ons:Localized edema TAKE 2 TABLETS BY MOUTH EVERY DAY 180 Tablet 2 2 01/01/20 23 Discontinued Potassium Chloride ER 10 MEQ Oral Tablet Extended ReleaseIndicati ons:HTN, goal below 150/90 TAKE 1 TABLET BY MOUTH EVERY DAY 90 Tablet 1 3 01/02/20 23 Discontinued HYDROcodone Bit-Homatrop MBr 5-1.5 MG/5ML Oral Solution (Hycodan) Take 5 mL by mouth every 6 hours as needed for Cough. Initial prescription 60 mL 0 3 12/28/19 23 Discontinued(Med ication List Clean Up) documented as of this encounter (statuses as of 01/02/2023) Active Problems Problem Noted Date Transaminitis 12/30/2022 [...] as of this encounter (statuses as of 01/02/2023) Resolved Problems Problem Noted Date Resolved Date [...] ONYCHOLYSIS 02/06/2008 06/16/2015 PVD (PERIPHERAL VASCULAR DISEASE) ALVIN WILKINS 02/06/2008 01/02/2012 Screening for prostate cancer 02/06/2008 Overview: Resolved per Screening Diagnosis Protocol #6 Tobacco use disorder 02/06/2008 01/02/2012 Osteoporosis 02/06/2008 06/16/2015 PAIN IN LIMB, LEFT DISTAL GREAT TOE 02/06/2008 06/16/2015 HTN, goal below 140/90 3 HTN, goal below 140/80 5 documented as of this encounter (statuses as of 01/02/2023) Immunizations Name Administration Dates Next Due COVID-19 [...] Sign Reading Time Taken Comments Blood Pressure 130/70 01/01/2023 2:30 PM EDT Pulse 75 01/01/2023 2:30 PM EDT Temperature 37.3 C (99.1 F) 01/01/2023 2:30 PM ED T Respiratory Rate 18 01/01/2023 2:30 PM EDT Oxygen Saturation 96% 01/01/2023 2:30 PM EDT Inhaled Oxygen Concentration - - Weight 109.3 kg (241 lb) 12/27/2022 5:15 PM EDT Height 182.9 cm (6') 12/27/2022 5:15 PM EDT Body Mass Index 32.69 12/27/2022 5:15 PM EDT documented in this encounter Functional Status [...] Discharge Instructions * Discharge Instr - AVS* Leonardo Valdovinos DO - 12/31/2022 1:55 PM EDT Discharge Date: 01/01/2023 The information below provides you with the instructions and the list of medications you need to betaking following discharge from the hospital. If you have any questions, please ask before leaving. If you have questions after leaving, you can reach us at the numbers below. YOUR HOSPITAL PROVIDERS: Discharging Provider: Isreal Gallagher MD Provider Department: Hospital Medicine To reach this Provider Saturday through Saturday (8:00 AM to 4:30 PM) for any questions or test results: Call [phone] For after-hours concerns: Call [phone] and have your provider paged, or the provider personal lines sales rep for the Department of Hospital Medicine paged. Please note, the discharging provider will not be able to provide you with any medications refills.Please discuss these with your primary care provider. Worsening Symptoms: If you have new symptoms, or your symptoms get worse, please contact your Discharge Provider or Primary Care Provider (PCP). If these providers are not available, you can go to your local [facility] or [facility] Clinic during their business hours. In an EMERGENCY situation: Call [phone] or go to the nearest emergency room. A BRIEF SUMMARY OF YOUR HOSPITAL STAY: You initially came to the hospital after an MRI of your abdomen was concerning for lesions in your liver. You were started on IV antibiotics for possible infection and had drainage/fluid collection from these lesions by our Interventional Radiology team. Based on the images and elevation in some ofyour liver markers, there was also concern for a possible infection of your gallbladder, and you had a special imaging study called a HIDA scan performed to evaluate this. The HIDA scan showed possible blocked duct leading to your gallbladder. Our General Surgery team saw you during your admission and recommended outpatient follow-up with their team and with your oncologist due to concern part ofyour symptoms could be related to malignancy/cancer. You had 6 days of IV antibiotics while you were admitted, which should adequately treat for possible gallbladder infection. You were ready for discharge on 01/01/2023. Your main diagnosis at discharge was: liver mass Operations & Procedures performed: 12/28/2022 - drainage of liver lesion to test for infection and abnormal cells with Interventional Radiology Complications: none significant Inpatient test results that are pending at discharge: - Final bacterial and fungal cultures results (testing for infection) take several days to finalize - Cytology results - evaluates for atypical cells including possible cancer cells Advance Directive Documented: Advance Directive Does the Patient have an Advance Directive? Yes YOUR FOLLOW UP APPOINTMENTS: Primary Care Provider Information: PCP: Chema Combs MD [address] [facility] / [place] [phone] (office) [phone] (fax) Follow-up: - A follow-up was requested with surgical oncology (2 weeks) and with general surgery (1 week). Youshould be contacted to schedule these appointments. - You should also follow-up with your primary oncologist tomorrow (01/02/2023). - An appointment was requested with your PCP in 1 week. You need the following studies in the future: - Repeat BMP (electrolytes and kidney function) next week. - Remainder of labs and follow-up studies to be determined at follow-up. INSTRUCTIONS: Diet: fat restricted diet Activity: As tolerated Driving: You may resume driving upon discharge . Additional Instructions: - Call your primary care physician or seek medical attention if you experience severe abdominal pain, excessive nausea/vomiting, fevers/chills, other symptoms that are concerning to you. - Do not use alcohol products in anyway! The following changes were made to your medications: Please START taking the following medications: - Oxycodone 5mg every 6 hours as needed for abdominal pain. Please CHANGE how you take the following medications: - You were taking Lasix 20mg daily at the time of your admission. This was adjusted on your discharge paperwork (previously listed as 40mg daily). Please follow-up with your PCP to further discuss this medication. Please STOP taking the following medications: - Potassium chloride 10mEq per day - you did not require this while admitted. Please follow-up for repeat blood work and discuss this with your PCP. Please continue taking all of your other previously prescribed medications as directed by your doctors. documented in this encounter Progress Notes * Nayeli Montero DO - 12/31/2022 8:20 AM EDT PROGRESS NOTE - Trauma/Emergency Surgery [facility]-[address] [address] Name: Jh Fields Jr. Location: [facility] B733/A Date: 12/31/2022 Time: 8:25 AM DIAGNOSIS: Liver abscess vs mass PROCEDURES: 12/28: IR biopsy of mass SUBJECTIVE: Underwent IR biopsy of mass 12/28. No acute events overnight. Tolerating diet. No nausea or vomiting. Cytology still pending. Culture from IR procedure NGTD. Reports mild "soreness" of abdomen OBJECTIVE: Most Recent Vital Signs: BP: 115 mmHg/68 mmHg (12/31/22525) Pulse: 69 (12/31/22732) Temp: 36.5 C (12/31/22525) Resp: 18 (12/31/22732) SpO2: 94 % (12/31/22732) Vital Signs Last 24 Hours: Systolic BP: Most Recent Systolic BP Av mmHg Min: 115 mmHg Max: 134 mmHg Temperature: Most Recent Temperature Av.8 C Min: 36.5 C Max: 37.11 C Pulse: Pulse Av.8 Min: 64 Max: 72 Respirations: Resp Av Min: 18 Max: 18 SpO2: SpO2 Av.4 % Min: 93 % Max: 96 % In / Out Past 24 Hrs: Intake/Output Summary (Last 24 hours) at 12/31/2022 0825 Last data filed at 12/30/20221999 Gross per 24 hour Intake 1490 ml Output -- Net 1490 ml Physical Exam: Constitutional: NAD, alert, healthy, well nourished HEENT: NCAT, sclera white, EOMI, PERRL Mouth: MMM Neck: supple, FROM, symmetric, trachea midline CV: WWP, no LE edema Respiratory: nml respiratory effort and respiratory rate, symmetric chest rise Abdomen: soft, mildly distended, mild TTP mid epigastric area, no guarding or rebound; negative Auguste's sign Extremities: CAMPBELL, no gross deformities, no swelling or erythema Neuro: Alert, awake, oriented, grossly intact Skin: warm and dry, no cyanosis, no clubbing LABS: Labs reviewed as indicated below: Lab results within last 7 days (see chart for full results) Units 12/31/22 0749 12/30/22 0854 12/29/22 0720 HGB g/dL 13.6* 13.5* 13.9* HCT % 42.3 40.9 42.9 WBC K/uL 20.58* 18.55* 21.19* PLT K/uL 361 346 332 Lab results within last 7 days (see chart for full results) Units 12/30/22 0854 12/29/22 0720 12/28/22 0918 Sodium mmol/L 138 137 137 Potassium mmol/L 3.7 4.1 4.4 Chloride mmol/L 100 102 102 CO2 mmol/L 26 24 24 BUN mg/dL 23* 24* 19 Creatinine mg/dL 1.3* 1.4* 1.1 IMAGING: None new IMPRESSION/PLAN: Jh Fields Jr. is a 72 year old, male with B-cell lymphoma, a-fib on Eliquis and COPD foundto have abscess vs mass near gallbladder. Patient is now s/p IR biopsy of mass on 12/28/22. Patient'sLFTs downtrending yesterday 12/30 but patient still complaining of mild, nonworsening, abd pain today. Will likely still benefit from HIDA scan today 12/31. Patient's leukocytosis also increased 20.58 from 18.55, however unsure of what this represents in the setting of CLL. - Awaiting cytology results to determine timing of cholecystectomy - Follow up HIDA to rule out cholecystitis given patient's abd pain - Trend WBC and LFTs - Please hold anticoag until HIDA results - Continue abx as guided by ID team and primary team - Rest of care per primary team The patient was examined and was discussed with Dr. Sammy Montero DO Integrated Vascular Surgery Resident PGY1 [facility] GENERAL SURGERY 12/31/2022 Associated attestation - Yissel Christianson MD - 12/31/2022 11:51 AM EDT I saw and evaluated the patient today. I have reviewed the trainee note and agree. ?mass vs pericholecystic hepatic abscess. - HIDA today - f/u Cytology. * Leonardo Valdovinos DO - 12/30/2022 12:01 PM EDT Images from the original note were not included. [facility] B733/A INTERVAL HISTORY: No acute events overnight. Reports improved RUQ pain today. Did not require PRN last night or this am per his report. Tolerating diet previously. Does still note pain worse when coughing. Feels as ifhe is wheezing and could use breathing treatment. Has had intermittent cough with occasional productivity. No other complaints this am. Objective Physical Exam Most Recent Vital Signs: BP: 114 mmHg/54 mmHg (12/30/22599) Pulse: 67 (12/30/22599) Temp: 36.33 C (12/30/22599) Resp: 18 (12/30/22599) SpO2: 92 % (12/30/22599) Constitutional: awake and alert, no acute distress HEENT: grossly normocephalic, atraumatic, EOM grossly intact, conjunctiva and sclera clear CV: RRR, S1S2 present, no murmurs or gallops appreciated Resp: Diffuse end expiratory wheezes and upper airway transmitted sounds improving with cough, on baseline 2L Abd: soft, non-distended, abdominal tenderness overall improved Extremities: warm and well-perfused, no pitting edema Skin: warm and dry Neuro: awake, alert, and grossly oriented with fluent speech, moves all 4 extremities spontaneously Peripheral Line Lower;Right 20 Gauge (Active) Number of days: 2 STUDIES: Labs and other studies reviewed with pertinent findings noted below: Lab results within last 7 days (see chart for full results) Units 12/30/22 0854 12/29/22 0720 12/28/22 0918 HGB g/dL 13.5* 13.9* 13.9* HCT % 40.9 42.9 43.0 WBC K/uL 18.55* 21.19* 19.98* PLT K/uL 346 332 318 Lab results within last 7 days (see chart for full results) Units 12/30/22 0854 12/29/22 0720 12/28/22 0918 Sodium mmol/L 138 137 137 Potassium mmol/L 3.7 4.1 4.4 Chloride mmol/L 100 102 102 CO2 mmol/L 26 24 24 BUN mg/dL 23* 24* 19 Creatinine mg/dL 1.3* 1.4* 1.1 Lab results within last 7 days (see chart for full results) Units 12/30/22 0854 12/29/22 0720 12/27/22 1026 Protein g/dL 6.2 6.1 6.9 Bilirubin, Total mg/dL 0.8 1.3* 0.8 Alkaline Phosphatase U/L 274* 289* 312* AST U/L 42 51* 49 ALT U/L 57* 67* 71* Recent Cultures (2 Weeks) 12/28/2022 12/27/2022 12/27/2022 3:30 PM 10:29 AM 10:26 AM FUNGUS STAIN DESCRIPTION No yeast or hyphae seen. -- -- FUNGUS CULTURE GROWTH No fungus isolated to date -- -- STAIN DESCRIPTION Few Polymorphonuclear leukocytes -- -- No organisms seen CULTURE GROWTH No aerobic or anaerobic growth -- -- BLOOD CULTURE GROWTH -- No growth to date No growth to date Assessment and Plan IMPRESSION : Principal Problem: Liver mass Active Problems: 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) Dyslipidemia, goal LDL below 100 COPD, mild (HCC) HTN, goal below 150/90 PAF (paroxysmal atrial fibrillation) (HCC) Essential tremor Liver abscess KARISSA (acute kidney injury) (HCC) Resolved Problems: * No resolved hospital problems. * ASSESSMENT AND PLAN: Jh Reveleshaim Brooks Is a 72 year old male with history of CLL (B-cell lymphoma), HTN, pAfib on Eliquis who was admitted for further evaluation of liver mass/lesion, now s/p aspiration and biopsy. He remains hemodynamically stable following de-escalation of antibiotics and is pending HIDA scan. Liver Mass - malignancy vs infection vs other etiology Remains afebrile with WBCs elevated but remaining within previous variation (CLL), no evidence of left shift with mildly elevated CRP on admission. Cultures from 12/28 with NGTD. Biopsy pending. LFTs remains stable. - Reviewed and appreciate ID recommendations - C/w ceftriaxone and flagyl for now for empiric coverage of intraabdominal infections. Pending HIDA evaluation. - F/u culture and cytology results - Maintain fat-restricted diet to prevent biliary attachs - C/w Ultram 25mg Q6H PRN - HIDA scan ordered to r/o cholecystitis, though consider this less likely. Will review with nuclear medicine to see if this is likely to be scheduled for tomorrow. - Plan for future cholecystectomy with general surgery pending the results of the above KARISSA Stable today with creatinine 1.4->1.3. Remains elevated from baseline. Likely multifactorial in the setting of decreased PO intake, imaging with contrast, and vancomycin induced injury. Follow while inpatient. - Recheck BMP in am pAfib Rate controlled on Lopressor. Regular on exam today. - Continue Lopressor 50mg BID - Continue STATISTICAL METHODS TEACHER cardizem 120mg daily - Holding STATISTICAL METHODS TEACHER Eliquis pending possible surgical intervention Chronic respiratory failure on 2L COPD Stable on baseline oxygen requirement but with diffuse wheezing today. - STATISTICAL METHODS TEACHER Trelegy - Will give albuterol treatment now, continue Q4H PRN Chronic: - HLD - STATISTICAL METHODS TEACHER Lipitor 20mg PHARMACOLOGIC VTE PROPHYLAXIS: Eliquis Tabs CODE STATUS: Full Code EXPECTED DISCHARGE DATE: 01/01/2023 Patient and plan were discussed with Dr. Gallagher. Please see attending attestation for any updates or additions to plan. Leonardo Valdovinos DO Internal Medicine-Pediatrics, PGY-3 Associated attestation - Isreal Gallagher MD - 12/31/2022 7:10 AM EDT I saw and evaluated the patient 12/30/2022. I have reviewed the trainee note and agree. I spent a total of 55 minutes coordinating, documenting, and providing care for this patient excluding time spent in the performance of separately billed services. Updated family at bedside. Wheezing this morning improved with breathing treatment. Hopeful for HIDA scan in AM. Abd pain improved. Pending results consider cholecystectomy. Liver mass unclear - most concern for neoplastic process but infectious process not ruled out. -hold anticoagulation at this time. Encourage ambulation for now. Leukocytosis - seems within variation for CLL, at this time not concerned about level. * Rupinder Otero MD - 12/30/2022 4:57 AM EDT PROGRESS NOTE - Trauma/Emergency Surgery [facility]-[address] [address] Name: Jh Cortez Donnie Brooks Location: [facility] B733/A Date: 12/30/2022 Time: 4:57 AM DIAGNOSIS: Liver abscess vs mass SUBJECTIVE: Underwent IR biopsy of mass 12/28. No acute events overnight. Tolerating diet. No nausea or vomiting. Cytology NGTD, few PMNs. Anticoag resumed yesterday. OBJECTIVE: Most Recent Vital Signs: BP: 141 mmHg/66 mmHg (12/29/222100) Pulse: 81 (12/29/222100) Temp: 37.33 C (12/29/222100) Resp: 20 (12/29/222299) SpO2: 93 % (12/29/222100) Vital Signs Last 24 Hours: Systolic BP: Most Recent Systolic BP Av.8 mmHg Min: 113 mmHg Max: 141 mmHg Temperature: Most Recent Temperature Av.7 C Min: 36 C Max: 37.33 C Pulse: Pulse Av Min: 64 Max: 81 Respirations: Resp Av.3 Min: 20 Max: 22 SpO2: SpO2 Av.3 % Min: 93 % Max: 96 % In / Out Past 24 Hrs: Intake/Output Summary (Last 24 hours) at 12/30/2022 0457 Last data filed at 12/29/20221999 Gross per 24 hour Intake 1320 ml Output -- Net 1320 ml Physical Exam: Constitutional: NAD, alert, healthy, well nourished HEENT: NCAT, sclera white, EOMI, PERRL Mouth: MMM Neck: supple, FROM, symmetric, trachea midline CV: WWP, no LE edema Respiratory: nml respiratory effort and respiratory rate, symmetric chest rise Abdomen: soft, mildly distended, nTTP in RUQ, no guarding or rebound; negative Auguste's sign Extremities: CAMPBELL, no gross deformities, no swelling or erythema Neuro: Alert, awake, oriented, grossly intact Skin: warm and dry, no cyanosis, no clubbing LABS: Labs reviewed as indicated below: Lab results within last 7 days (see chart for full results) Units 12/29/22 0720 12/28/22 0918 12/27/22 1026 HGB g/dL 13.9* 13.9* 15.6 HCT % 42.9 43.0 47.1 WBC K/uL 21.19* 19.98* 25.46* PLT K/uL 332 318 335 Lab results within last 7 days (see chart for full results) Units 12/29/22 0720 12/28/22 0918 12/27/22 1026 Sodium mmol/L 137 137 135 Potassium mmol/L 4.1 4.4 4.2 Chloride mmol/L 102 102 100 CO2 mmol/L 24 24 23 BUN mg/dL 24* 19 21* Creatinine mg/dL 1.4* 1.1 1.0 IMAGING: None new IMPRESSION/PLAN: Jh Fields Jr. is a 72 year old, male with B-cell lymphoma, a-fib on Eliquis and COPD foundto have abscess vs mass near gallbladder. Patient is now s/p IR biopsy of mass on 12/28/22. - Awaiting cytology results to determine timing of cholecystectomy - Can consider HIDA to rule out cholecystitis given elevated LFTs yesterday with increasing WBC (unsure what this represents in the setting of CLL) - Trend WBC and LFTs - Please hold anticoag until HIDA results - Continue abx - Rest of care per primary team The patient was examined and was discussed with Dr. Leavitt. Rupinder Otero MD General Surgery Resident - PGY 5 Associated attestation - Beto Leavitt MD - 12/30/2022 10:26 AM EDT I saw and evaluated the patient today. I have reviewed the trainee note and agree. * Mely Jensen, [facility] - 12/29/2022 10:20 AM EDT PHARMACY PHARMACOKINETIC CONSULT [facility] [address] Name: Jh Fields Jr. Location: [facility] B733/A Date: 12/29/2022 Time: 10:20 AM Requesting service: Med Green Bacteria being treated: Empiric Source of infection: Liver abscess Medication(s) being managed: Vancomycin Pharmacokinetic calculations will be performed utilizing [employer] software. Lab information: Lab Results Component Value Date/Time WBC 21.19 (H) 12/29/2022 07:20 AM WBC 19.98 (H) 12/28/2022 09:18 AM WBC 25.46 (H) 12/27/2022 10:26 AM WBC 25.58 (H) 12/11/2022 10:49 AM WBC 34.60 (H) 06/19/2022 01:15 PM WBC 17.08 (H) 03/28/2020 11:38 AM WBC 15.06 (H) 11/24/2019 09:10 AM WBC 15.06 (H) 11/24/2019 09:07 AM WBC 15.52 (H) 07/20/2019 10:03 AM WBC 13.63 (H) 03/06/2019 08:43 AM Lab Results Component Value Date/Time BUN 24 (H) 12/29/2022 07:20 AM BUN 19 12/28/2022 09:18 AM BUN 21 (H) 12/27/2022 10:26 AM BUN 15 12/11/2022 10:49 AM BUN 13 06/19/2022 01:15 PM BUN 17 03/28/2020 11:38 AM BUN 17 11/24/2019 09:10 AM BUN 17 11/24/2019 09:07 AM BUN 16 07/20/2019 10:03 AM BUN 16 03/06/2019 08:43 AM Lab Results Component Value Date/Time CREAT 1.4 (H) 12/29/2022 07:20 AM CREAT 1.1 12/28/2022 09:18 AM CREAT 1.0 12/27/2022 10:26 AM CREAT 1.1 12/11/2022 10:49 AM CREAT 1.0 07/19/2022 12:00 AM CREAT 1.1 06/19/2022 01:15 PM CREAT 1.1 03/28/2020 11:38 AM CREAT 1.2 11/24/2019 09:10 AM CREAT 1.1 11/24/2019 09:07 AM CREAT 1.2 07/20/2019 10:03 AM CREAT 1.3 (H) 03/06/2019 08:43 AM ANTIMICROBIALS GIVEN (last 28 hours) Date/Time Action Medication Dose Rate 12/28/22 1640 New Bag Piperacillin-Tazobactam (Zosyn) 4.5 g in 100 mL NSS ivpb (FOUR hour infusion) 4.5 g 25 mL/hr 12/28/22 0913 New Bag Piperacillin-Tazobactam (Zosyn) 4.5 g in 100 mL NSS ivpb (FOUR hour infusion) 4.5 g 25 mL/hr Wt Readings from Last 1 Encounters: 12/27/22 109.3 kg (241 lb) Levels to date: Lab Results Component Value Date/Time ZA 22.0 12/29/2022 07:20 AM Impression: Jh Fields Jr. is a/an 72 year old male receiving vancomycin therapy. The pharmacokinetic target for therapy is AUC24,SS (range) 400-600mg/L.hr Assessment and Plan: Assessment: Analysis of the most recent level(s) using [employer] gives the following patient-specific pharmacokinetic parameters: CL: 3.05 L/hr V: 92.1 L T1/2: 22.2 hours Using these values, the current regimen of Vancomycin 1500 mg IV every 18 hours is predicted to result in a steady-state trough of 21.3 mg/L and AUC24 of 647 mg/L.hr. At this time we recommend a regimen of 1500 mg IV every 24 hours, which is predicted to result in a steady-state trough of 15.1 mg/Land AUC24 of 494 mg/L.hr. Recommendations: - Vancomycin 1500 mg IV every 24 hours - Obtain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 Ghassan Jimenez prior to administration. 3:55 PM Needle adjusted. Images obtained. 3:57 PM Needle adjusted. Images obtained. 4:00 PM Needle adjusted. Images obtained. 4:04 PM Needle adjusted. Images obtained. 4:06 PM Access obtained. Images obtained. 4:08 PM Biopsy obtained. Images obtained. 4:14 PM Eswab obtained to be sent to laboratory via tube system immediately following closure of case for further testing. 4:18 PM Biopsy obtained. Images obtained. 4:19 PM Biopsy obtained. Images obtained. 4:20 PM Access removed. Procedure complete. 4:21 PM Area cleaned. Gauze and tegaderm applied. Eswab sent to lab via tube system and core biopsies walked to cytology Patient tolerated procedure well without complications. All [...] the scrubbed RT and the operating physician. Patient did receive conscious sedation for their procedure, and was sedated from 1512 to 1625. Total medications given Versed: 3 mg Fentanyl: 150 mcg 1% buffered lidocaine: 20 mL Please see doctor's operative note for additional details. * Farzana Coulter RN - 12/28/2022 10:11 AM EDT INPATIENT TO INTERVENTIONAL RADIOLOGY (IR) HANDOFF COMMUNICATION NOTE [facility] [address] [facility] [address] Name: Jh Fields Jr. Age: [age] year old Location: [facility] B733/A Date: 12/28/2022 Safety Concerns: None Allergies: Lisinopril Contrast Dye Allergy? no Allergy prepped? N/A Code Status: Full Code Discussion of adv directives occurred with - adult: Patient Isolation: no Report from: Farzana Coulter RN at phone extension [phone] Patient arriving via: Bed Reason for SBAR handoff: Diagnostic Patient is alert and oriented and able to sign consent (if not, call or contact centre coach and number): Yes Patient NPO: yes Patient NPO since: 0000 Patient wears CPAP, BiPAP, or oxygen overnight: no Patient has difficulty breathing when lying flat? yes Emotional/Personal Anxiety? no Last as needed pain medication given at (time): 0723 morphine Situation/Background Admission date: 12/27/2022 Patient Service: Pawel Britt [[id number]] Attending Provider: Isreal Gallagher MD Admitting diagnosis: Intra-abdominal abscess (HCC) Chief Complaint: Abnormal Test Results Problem list: Principal Problem: Liver abscess Active Problems: 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) Dyslipidemia, goal LDL below 100 COPD, mild (HCC) HTN, goal below 150/90 PAF (paroxysmal atrial fibrillation) (HCC) Essential tremor Resolved Problems: * No resolved hospital problems. * Level of Care: Med Surg [3] Vital Signs: BP: 169/61 (12/28/22 09) Temp: 36.3 C (97.3 F) (12/28/22 0506) Pulse: 79 (12/28/22907) Resp: 18 (12/28/22907) SpO2: 95 % (12/28/22907) Weight: 109.3 kg (241 lb) (12/27/221714) Height: 182.9 cm (6') (12/27/221714) Labs: Please see Lab Flowsheet for lab values. Lab comments: yes: see labs Lines: Peripheral Line Left;Lower;Posterior Arm 20 Gauge (Active) Status Fluids infusing 12/28/22799 Tubing Changed No 12/27/221999 Phlebitis Scale 0 12/27/221999 Infiltration Scale 0 12/27/221999 Site Description (Other) Without redness, swelling or drainage 12/27/221999 Site Intervention None required 12/27/221999 Dressing Assessment Dressing clean, dry, and intact 12/27/221999 Dressing Intervention None required 12/27/221999 Number of days: 1 Fall Scale: Fall Score: 35 (12/28/22699) Fall Interventions: Bed at low level (12/28/22699) Neurological: Darby Coma Scale Eyes Open: Spontaneous (12/28/22699) Best Verbal Response: Verbally appropriate for age (12/28/22699) Best Motor Response: Obeys commands appropriate for age (12/28/22699) Coma Score: 15 (12/28/22699) Additional Neurological Information: no Respiratory: Respiratory WNL: X- Exceptions to WNL (12/28/22699) Cough: Occasional (12/28/22699) Depth/Rhythm: Regular (12/28/22699) Dyspnea Occurance: With Exertion (12/28/22699) Effort: Unlabored (12/28/22699) Oxygen therapy/ Mechanical vent O2 flow rate: 2 L/MIN (12/28/22699) Supplemental O2 Delivery: Nasal Cannula (12/28/22699) O2 flow rate: 2 L/MIN (12/28/22699) Additional Respiratory Information: no Cardiac: Observation WNL: WNL except for items charted below (12/28/22699) Heart Sounds: S1;S2 (12/28/22699) Extremities: +Sensation (12/28/22699) Pulses Right: Brachial +;Carotid +;Dorsalis Pedis + (12/28/22699) Pulses Left: Brachial +;Carotid +;Dorsalis Pedis + (12/28/22699) Edema: Yes (12/28/22699) Edema Location: Lower extremities;Left (12/28/22699) Edema Assessment: (trace, LLE (pt reports as baseline) (12/27/22 1202) Additional Cardiac Information: no GI/: Observation WNL: WNL except for items charted below (12/28/22699) Abdomen: Tender;Rounded (12/28/22699) Bowel Sounds: All Quadrants (12/28/22699) Additional GI/ Information: no Integumentary: Observation WNL: WNL except for items charted below (12/28/22699) Skin Description: Dry (12/28/22699) Skin Color: Flesh Tone (12/28/22699) Skin Lesion: Other - Describe (12/28/22699) Environment / Interventions: Bed (12/28/22699) Junior Score (auto-calculation): 20 (12/28/22699) Skin Breakdown (including Red, Non-Blanchable Areas) Present on Admission?: No (12/27/221714) Additional Integumentary Information: no Restraints: No orders of the defined types were placed in this encounter. * Farzana Coulter RN - 12/27/2022 5:24 PM EDT Dual Licensed Skin Assessment completed by Farzana Coulter RN and Laura. The patient is/has a N/A Skin Breakdown (includes non blanchable erythema): No documented in this encounter ED Notes * Hugo Chaudhary MD - 12/27/2022 11:55 AM EDT HISTORY OF PRESENT ILLNESS Jh Fields Jr. is a 72 year old male who presents to the ED for evaluation of Abnormal TestResults. The patient was seen at 12/27/22 1007. Patient is a 72-year-old male with a history of B-cell lymphoma presenting to the ER for abnormal MRI findings. Patient was scheduled to follow up withhis surgeon today, however was found to have concerns for an abscess versus infection on MRI and was advised to come to the ER. Reports of no new symptoms at this time. Denies recent illnesses, fevers, chills, headache, dizziness, lightheadedness, new cough, congestion, chest pain, new shortness ofbreath, nausea, vomiting, diarrhea, dysuria, hematuria, and new leg swelling. No other complaints. Review of Systems HENT: Negative for nosebleeds. Eyes: Negative for photophobia and visual disturbance. Musculoskeletal: Negative for neck stiffness. Psychiatric/Behavioral: Negative for agitation and confusion. The patient's allergies, past history, and medications were reviewed. PHYSICAL EXAM Initial Vitals (see all): BP 170/82 | Pulse 102 | Resp 18 | Temp 97 | O2 96 %, Nasal Cannula | Weight 109.32 kg | Height 182.9 cm | BMI 32.69 kg/m2 Initial Pain Assessment (see all): 8 (severe pain)/100/10, Other - Describe, location: abdomen ([facility] Adult Scale 0-10) Physical Exam Constitutional: General: He is not in acute distress. Appearance: Normal appearance. He is not ill-appearing. HENT: Head: Normocephalic and atraumatic. Right Ear: External ear normal. Left Ear: External ear normal. Nose: Nose normal. Mouth/Throat: Mouth: Mucous membranes are dry. Pharynx: Oropharynx is clear. No oropharyngeal exudate or posterior oropharyngeal erythema. Eyes: General: No scleral icterus. Right eye: No discharge. Left eye: No discharge. Extraocular Movements: Extraocular movements intact. Conjunctiva/sclera: Conjunctivae normal. Pupils: Pupils are equal, round, and reactive to light. Cardiovascular: Rate and Rhythm: Normal rate and regular rhythm. Pulses: Normal pulses. Heart sounds: Normal heart sounds. Pulmonary: Effort: Pulmonary effort is normal. No respiratory distress. Breath sounds: Normal breath sounds. Comments: On nasal cannula Abdominal: General: Bowel sounds are normal. There is no distension. Palpations: Abdomen is soft. Tenderness: There is no abdominal tenderness. There is no guarding or rebound. Comments: Rotund Musculoskeletal: General: Normal range of motion. Cervical back: Normal range of motion and neck supple. Right lower leg: No edema. Left lower leg: No edema. Skin: General: Skin is warm and dry. Capillary Refill: Capillary refill takes less than 2 seconds. Neurological: General: No focal deficit present. Mental Status: He is alert. Mental status is at baseline. Psychiatric: Mood and Affect: Mood normal. Behavior: Behavior normal. Thought Content: Thought content normal. Judgment: Judgment normal. PROCEDURES AND TREATMENTS ED Orders | ED Results MEDICAL DECISION MAKING Nursing notes and vital signs were reviewed. ED consults were placed. ED Course as of 12/29/222014 Tran Dec 27, 2022 1146 WBC(!): 25.46 [SB] 1146 Lactate(!): 2.3 [SB] 1146 CRP (Inflammatory Marker)(!): 21 [SB] 1146 Alkaline Phosphatase(!): 312 [SB] 1146 JOHN 12/26/22: IMPRESSION: 1. Rim enhancing liver lesions clustered around the gallbladder fossa are most suspicious for abscesses/infection such as from prior perforated cholecystitis. The gallbladder is currently contracted around several calculi. Malignancy is possible but considered less likely. [SB] ED Course User Index [SB] Alejandra Ulloa DO Differential Diagnoses Based on my history, physical exam, and evaluation, the differential includes, but is not limited, to the following diagnoses: Cholecystitis, gallbladder abscess, colitis, perforation, progression ofmalignancy. Patient is a 72-year-old male presenting to the ER with abnormal MRI findings suspicious for abscess versus infection. Initial vital signs and examination as above. Due to concerns as listed in differential diagnoses, laboratory workup was also obtained. My interpretation of patient's laboratory workup is significant for elevated lactate and inflammatory markers as well as alk-phos of 312. Patient has an elevated WBC, however within patient's normal range. Patient was discussed with General surgery due to MRI findings who recommended IR drainage, however would follow closely inpatient. Patient was discussed IR as well as with the hospitalist and admitted to their service for IR evaluation an d drainage of abscess. Patient agreeable to plan. Patient remained hemodynamically stable while in the ED while under my care. All questions were answered to their satisfaction. Amount and/or Complexity of Data Reviewed Labs: ordered. Decision-making details documented in ED Course. Risk Prescription drug management. Decision regarding hospitalization. Clinical Impressions Intra-abdominal abscess (HCC) Disposition Admitted. I discussed the management of this patient with the admitting provider and I made a decision to admit the patient. Admission Order Ordered Status . 12/27/22 1411 Admit for Inpatient Services (incl ZPO) ONCE Completed Hugo Chaudhary was the attending physician who supervised the care of this patient. Alejandra Ulloa DO ATTENDING ATTESTATION I have seen and examined this patient on the 12/27/2022 visit. I have discussed the patient's management with the provider listed above and agree with the note, findings, and plan of care. Hugo Chaudhary MD * Sameer Owens DO - 12/27/2022 10:15 AM EDT ED TRIAGE NOTE HISTORY OF PRESENT ILLNESS Jh Fields is a 72 year old male who presents to the ED with Abnormal Test Results. Informant: patient Patient with B-cell lymphoma, a-fib on Eliquis with his last dose yesterday. He presents with abdominal pain that he localizes to the right upper quadrant and describes as "annoying". He states the pain began 1 month ago that has progressed from sharp to dull. He currently rates the pain as 8/10 and denies radiation. His social history is negative for alcohol, tobacco, or illicit drug use. He hadprevious appendectomy at age 15. He is allergic to lisinopril. He uses 2 liters of oxygen at home. CT abdomen Results (12/26/22) 1. Rim enhancing liver lesions clustered around the gallbladder fossa are most suspicious for abscesses/infection such as from prior perforated cholecystitis. The gallbladder is currently contracted around several calculi. Malignancy is possible but considered less likely. PHYSICAL EXAM Initial Vitals (see all): BP 170/82 | Pulse 102 | Resp 18 | Temp 97 | O2 96 %, Nasal Cannula | Weight 109.32 kg | Height 182.9 cm | BMI 32.69 kg/m2 Initial Pain Assessment (see all): 8 (severe pain)/10, Other - Describe ([facility] Adult Scale 0-10) ABDOMEN: abdomen soft, no masses, distended, RUQ tenderness with positive auguste sign, epigastric tenderness. No flank tenderness. LUNGS: CTA HEART: normal rate and rhythm, no murmurs MEDICAL DECISION MAKING ED Course as of 12/27/22 1147 Tran Dec 27, 2022 1146 WBC(!): 25.46 [SB] 1146 Lactate(!): 2.3 [SB] 1146 CRP (Inflammatory Marker)(!): 21 [SB] 1146 Alkaline Phosphatase(!): 312 [SB] 1146 JOHN 12/26/22: IMPRESSION: 1. Rim enhancing liver lesions clustered around the gallbladder fossa are most suspicious for abscesses/infection such as from prior perforated cholecystitis. The gallbladder is currently contracted around several calculi. Malignancy is possible but considered less likely. [SB] ED Course User Index [SB] Alejandra Ulloa, DO Are the vital signs unstable? No Degree of pain: moderate Is the patient's mental status altered? No Does the patient appear acutely ill or toxic? No Is there evidence for poor perfusion? No Is the patient and near term? N/A Was pain medication given? N/A I evaluated the patient in triage in order to provide a brief medical screening exam and initiationof appropriate diagnostic testing. Instructions were given to notify nursing staff if symptoms should worsen or if any other concerns arise while waiting for further evaluation. Sameer Owens DO documented in this encounter Miscellaneous Notes * Ancillary Progress Note - Nayeli Chavarria RN - 01/01/2023 2:24 PM EDT ADULT CARE MANAGEMENT - DISCHARGE NOTE [facility] [address] Name: Jh Fields Jr. Location: [facility] B733/A Date: 01/01/2023 Time: 2:24 PM The following coordination of care and discharge plan has been coordinated with the care team, patient, family and/or caregiver according to the patients needs and preferences. Discharge Discharge Insurance considerations verified and completed: Yes (01/01/231422) Second Notice Important Message from Medicare delivered: Yes (01/01/231422) Date Delivered: 01/01/23 (01/01/231422) Was Caregiver/Family contacted regarding discharge: Yes (01/01/231422) Discharge Transportation: Family/Friends drive (01/01/231422) Date of scheduled discharge transportation: 01/01/23 (01/01/231422) Patient declined post-hospital transition of care recommendation: N/A (01/01/231422) Final D/C Plan - Complete at time of D/C Final Discharge Plan (Complete only at time of Discharge): Home - Self Care (01/01/231422) Narrative: Patient to d/c with no needs. Patient to be transported by family. Patient is agreeable to the above discharge plans. Patient has no further questions or concerns regarding plan of care or discharge. * Communication - Rupinder Otero MD - 01/01/2023 11:48 AM EDT Brief Note Received update from pathology that prelim path was concerning for adenocarcinoma, unknown primary as of yet. Reviewed the pathology with surgical oncologist, Dr. Tirado. At this time, the plan will be to have patient follow-up with Medical Oncology for neoadjuvant chemotherapy. Patient will also be discussed at our upcoming GI MDC and we will follow-up with further plans. Outpatient follow-up with Surgical Oncology also ordered. I talked to the patient about the preliminary path and relayed the recommended plan of care. He expressed understanding. He wishes to follow with his already established oncologist, Dr. Blanco, whichis understandable. He will go home without antibiotics. He was instructed to come back to the hospital if he were to develop fevers or severe RUQ pain. Patient expressed understanding and in agreement with the plan. No plans for acute surgical intervention at this time. OK to discharge home from general surgery perspective. OK to resume anticoagulation. Rupinder Otero MD General Surgery Resident - PGY 5 * Care Plan - Filomena Reina RN - 01/01/2023 3:57 AM EDT Clinical Goal(s): pt will remain fall free during the shift (12/31/221929) Possible barriers to meeting goal(s)/advancing plan of care: pt ambulates Stability of the patient: Moderately stable - low risk of patient condition declining or worsening Summary regarding today's goal(s): Met: pt remained fall free during the shift Recommendations: To continue safety monitoring. * Communication - Naylei Montero DO - 12/31/2022 2:57 PM EDT BRIEF EMERGENCY GENERAL SURGERY NOTE Patient's HIDA (+) for cystic duct obstruction. Patient will need either perc lorraine or surgery to manage. Please hold eliquis, put patient on clear liquid diet for today and then make patient NPO at midnight. Perc lorraine vs surgery management currently being discussed with surgical attendings and surgical team. Nayeli Montero DO Integrated Vascular Surgery Resident PGY1 [facility] GENERAL SURGERY 12/31/2022 * Ancillary Progress Note - Nayeli Chavarria RN - 12/31/2022 10:07 AM EDT CARE MANAGEMENT - ADULT TRANSITION NOTE [facility] [address] Name: Jh Fields Jr. Location: [facility] B733/A Date: 12/31/2022 Time: 10:07 AM Risk Stratification Risk Stratification Readmission Risk Score: 16.66 (12/31/22 08) AM-PAC Score With Stairs : 24 (12/31/22 09) Caregiver Information Patient Contacts Name Relation Home Work Mobile ANGEL FIELDS Spouse [phone] COREYAUGUST Adult Child [phone] Eloy Flores Adult Child [phone] Melonie Wallace Adult Child [phone] Transition of Care Checklist Transition of Care Checklist (aka Readmission Risk Score) Readmission Risk Score: 16.66 (12/31/22 08) Narrative: Patient was discussed during boost this AM. Per IDT, patient is not medically ready. Getting hida scan today, potentially ready in 1-2 days. No anticipated needs. CM will continue to follow. Anticipated Transportation at Discharge: family Patient/Family Expectations: home Transition Planning Additional Considerations: Care Management will continue to monitor and assist with discharge planning needs * Hospital Course - Kristyn Gonzalez DO - 12/31/2022 5:31 AM EDT {Hospital Course documentation can easily be pulled into the Discharge Summary by documenting here and using the smartlink in the Discharge Summary template:[id number]} * Care Plan - Filomena Reina RN - 12/31/2022 4:08 AM EDT Problem: Pain & Impaired Comfort Goal: Patient's pain & discomfort is manageable. Outcome: Progressing Clinical Goal(s): pt will remain pain free during the shift (12/30/22 2340) Possible barriers to meeting goal(s)/advancing plan of care: intra abdominal abscess Stability of the patient: Moderately stable - low risk of patient condition declining or worsening Summary regarding today's goal(s): Met: pt remained pain free during the shift Recommendations: To continue pain monitoring and management. * Care Plan - Charlotte Koroma RN - 12/30/2022 6:48 PM EDT Clinical Goal(s): Patient will remain afebrile on day shift/. (12/30/22901) Possible barriers to meeting goal(s)/advancing plan of care: liver abscess/mass; infected gallbladder Stability of the patient: Moderately unstable - medium risk of patient condition declining or worsening Summary regarding today's goal(s): Met: Patient remained afebrile on day shift. Recommendations: Monitor and record temps, tylenol for fevers, IV rocephin & PO flagyl for infection * Respiratory Progress Note - Constance Campos RRT - 12/30/2022 9:23 AM EDT PDP RE-EVALUATION NOTE - Respiratory Care Services [facility] [address] Name: Jh Fields Location: [facility] B733/A Date: 12/30/2022 Time: 9:23 AM Patient Driven Protocol Summary: Re-evaluation . This Treatment Plan and medications will be reviewed by the Primary Care Team for any contraindications. Respiratory Care Treatment Plan Aerosol Therapy Treatment:: Hand Held Nebulizer Tx BID with Albuterol Sulfate: Unit dose 0.083%. to reduce work of breathing and improve pulmonary gas exchange. Additional Aerosolized Treatments: Inhaler(s) QDAY with Trelegy Ellipta (fluticasone furoate 100 mcg, umeclidinium 62.5 mcg and Vilanterol 25 mcg inhalation powder) / 1 inhalation. to reduce work of breathing and improve pulmonary gasexchange and suppress bronchial inflammation and edema by the use of systemic steroid sparing therapy. Additional Aerosolized Treatments: Inhaler(s) PRN with Albuterol Sulfate: 2 puffs. to reduce work of breathing and improve pulmonary gas exchange. . Pulmonary Volume Expansion Therapy: Incentive Spirometry PRN to prevent or treat alveolar consolidation and atelectasis. . Secretion Management Treatment: Flutter TherapyPRN to enhance mobilization of secretions. .. The patient will be re-evaluated: within 48 hours. The Triage Level is: (Assessment Score = 6 -10) Level 4. Triage Level Definitions: Level 1 Severe Respiratory/Airway Compromise Level 2 Moderate Respiratory/Airway Compromise or high risk for pulmonary complications Level 3 Mild Respiratory/Airway Compromise or moderate risk for pulmonary complications Level 4 Episodic Respiratory/Airway Compromise or low risk for pulmonary complications Level 5 No Respiratory/Airway Compromise Triage 1 Triage 2 Triage 3 Triage 4 Triage 5 greater than 20 16 - 20 11 - 15 6 - 10 0 - 5 Medical Record Assessment Clinical Findings Pulmonary Status: 3 - Pulm Impairment (acute or chronic) w/o exacerbation, or 1 - 2 rib fractures Surgical Status: 0 - No Surgical History Chest X-Ray: 0 - Not Performed or performed greater than 3 days ago Assessment Score: 3 Patient Assessment Clinical Findings Respiratory Pattern: 0 - RR 12 - 20; Patient only gets breathless with strenuous exercise. Breath Sounds: 2 - Diminished bilaterally Cough Effectiveness: 0 - Strong non-productive Sputum Production 0 - No sputum production Level of Activity: 1 - Ambulatory with assist O2 needed to keep SpO2 greater than or equal to 92%: 1 - Oxygen 1-3 LPM or FiO2 less than 35% Assessment Score: 4 Total Assessment Score: 7 Breath Sounds: Inspiratory and expiratory diminished bilaterally.. Cough and Sputum: An effective cough produced no sputum... Vital Signs: Resp: 18 (12/30/22599) Pulse: 67 (12/30/22599) Temp: 36.3 C (97.4 F) (12/30/22599) BP: 114/54 (12/30/22599) SpO2: 92 % (12/30/22599) Primary Service: Pawel Britt. Admitting Diagnosis: Intra-abdominal abscess (HCC) [K65.1] Pulmonary Diagnosis: COPD. * Care Plan - Forrest Wright RN - 12/30/2022 4:25 AM EDT Clinical Goal(s): Ambulate in room at least once (12/30/22 0000) Possible barriers to meeting goal(s)/advancing plan of care: Pain Stability of the patient: Moderately stable - low risk of patient condition declining or worsening Summary regarding today's goal(s): Met: Ambulated in room at least once Recommendations: Encourage independence in ADLs * Care Plan - Farzana Coulter RN - 12/29/2022 4:42 PM EDT Clinical Goal(s): Ambulate in room (12/29/22 0000) Possible barriers to meeting goal(s)/advancing plan of care: dizziness Stability of the patient: Moderately stable - low risk of patient condition declining or worsening Summary regarding today's goal(s): Met: pt did walk Recommendations: monitor * Pt Handout (on AVS) - Jerald Mendoza MD - 12/29/2022 4:20 PM EDT Images from the original note were not included. [id number] Low-Fat Diet A low-fat diet can help you lose weight. It also can help lower cholesterol and prevent symptoms ofgallbladder disease. In addition, choosing healthier unsaturated fats over less saturated healthy fats can help improve heart health. The average [place] diet contains up to 50% fat. This means thathalf of all calories come from fat (about 80 grams to 100 grams of fat per day). Choosing normal portions of foods from the list below can help lower your fat intake. Experts recommend that only 20% to 35% of your daily calories come from fat. The remaining 65% to 80% of calories will come from protein and carbohydrates. Breads OK: Whole-wheat or rye bread, aleshia or soda crackers, rohith toast, plain rolls, whole-wheat bagels, Vietnamese muffins Don't have: Rolls and breads containing whole milk; waffles, pancakes, biscuits, corn bread; cheesecrackers, other flavored crackers, pastries, doughnuts Cereals OK: Oatmeal, whole-wheat, bran, multigrain, rice Don't have:Granola or other cereals that have oil, coconut, or more than 2 grams of fat per serving Cheese and eggs OK: Cheeses labeled low-fat; 3 whole eggs per week; egg whites and egg substitutes as desired Don't have: All other cheeses Desserts OK: Gelatin, slushy, melonie food cake, meringues, nonfat yogurt, and puddings, or sherbet made with nonfat milk Don't have: Any other store-bought desserts, or desserts that have fat, whole milk, cream, chocolate, and coconut. Try to limit sweets and desserts. They may also contain high amounts of added sugars. Drinks OK: Nonfat milk, coffee, tea, water Don't have:Whole and reduced-fat milk, evaporated and condensed milk, hot chocolate mixes, milk shakes, malts, eggnog Fats OK: You may have up to 3 teaspoons of fat daily. This can be butter, margarine, mayonnaise, or healthy oils (canola or olive) Don't have: Cream, nondairy creams, cream cheese, gravies, and cream sauces Fruits OK: All fruits made without fat Don't have: Coconut, olives Meats, poultry, fish OK: Limit meat to 6 ounces daily (broiled, roasted, baked, grilled, or boiled). Buy lean cuts, and trim off the fat. Try beef, fish, lynch, pork, and canned fish packed in water; also, chicken and turkey with the skin removed. Don't have: Fried meats, fish, or poultry; fried eggs, and fish canned in oils; fatty meats, such as aranda, sausage, corned beef, hot dogs, and lunch meats; meats with gravies and sauces Potatoes, beans, pasta OK: Dried beans, split peas, lentils, potatoes, rice, pasta made without added fat Don't have: [place] fries, potato chips, potatoes prepared with butter, refried beans Soups OK: Clear broth soups without fat and with allowed vegetables Don't have: Cream-based soups Vegetables OK: Fresh, frozen, canned or dried vegetables, all made without added fat Don't have: Fried vegetables and those prepared with butter, cream, sauces Other foods OK: Salsa, spices and herbs, mustard, ketchup, lemon, and vinegar. Though some foods like sugar, jelly, hard candy, marshmallows, honey, syrup, and salt contain no fat, it's still a good idea to watch portion sizes. The Dietary Guidelines for Americans recommend that less than 10% of daily caloriescome from added sugars. Don't have: Chocolate, nuts, coconut, and cream candies; sunflower, sesame, and other seeds; fried foods; cream sauces and gravies; pizza Last Reviewed Date: 12/25/202119992448-2334 [employer]. All rights reserved. This information is not intended as a substitute for professional medical care. Always follow your healthcare professional's instructions. * Progress Notes - Non-Billable - Suhas Auguste, Medical Student - 12/29/2022 2:36 PM EDT PROGRESS NOTE - General Internal Medicine Service [facility] [address] Name: Jh Fields Jr. Location: [facility] B733/A Date: 12/29/2022 Time: 2:37 PM Unless the attending has added an attestation supporting use of this note to document a billable service, the signature of the Licensed Professional on this note only acknowledges the presence of thestudent's note within the patient record and the Licensed Professional's note should be referred tofor clinical information and recommendations. SUBJECTIVE: Mr. Fields is a 72 year old male with B-CLL, pA-Fib, and HTN is admitted with RUQ abdominal pain with mass on MRI concerning for infection/abscess or possible malignancy. Overnight pt reported less intense RUQ pain and is tolerating his new diet without biliary attacks.Pt is continuing to use morphine 2 mg IV with two pushes last night. Pt does find pain tolerable without morphine and holds emily right side with a pillow when he has to cough. Review of Systems Constitutional: Negative for chills and fever. Respiratory: Positive for cough. Negative for chest tightness. Cardiovascular: Negative for chest pain and palpitations. Gastrointestinal: Negative for nausea and vomiting. Genitourinary: Negative for difficulty urinating and dysuria. Pt still urinating at baseline frequency. Neurological: Negative for dizziness and weakness. OBJECTIVE: Most Recent Vital Signs: BP: 125 mmHg/73 mmHg (12/29/22599) Pulse: 64 (12/29/22599) Temp: 36.67 C (12/29/22599) Resp: 20 (12/29/22599) SpO2: 96 % (12/29/22599) Physical Exam Constitutional: Appearance: Normal appearance. HENT: Head: Normocephalic and atraumatic. Eyes: Extraocular Movements: Extraocular movements intact. Cardiovascular: Rate and Rhythm: Normal rate and regular rhythm. Pulses: Normal pulses. Heart sounds: Normal heart sounds. Pulmonary: Effort: Pulmonary effort is normal. Breath sounds: Normal breath sounds. Abdominal: General: Abdomen is flat. Bowel sounds are normal. Palpations: Abdomen is soft. Tenderness: There is abdominal tenderness (RUQ). Skin: Capillary Refill: Capillary refill takes less than 2 seconds. Neurological: General: No focal deficit present. Mental Status: He is alert and oriented to person, place, and time. Mental status is at baseline. LABS: Latest Reference Range & Units 12/29/22 07:20 Sodium 135 - 146 mmol/L 137 Potassium 3.5 - 5.1 mmol/L 4.1 Chloride 98 - 107 mmol/L 102 CO2 22 - 32 mmol/L 24 BUN 6 - 20 mg/dL 24 (H) Creatinine 0.6 - 1.2 mg/dL 1.4 (H) Estimated Glomerular Filtration Rate >=60 mL/min 52 (L) Anion Gap 7 - 15 mmol/L 11 Glucose 70 - 120 mg/dL 116 Calcium 8.4 - 10.2 mg/dL 9.3 Protein 6.0 - 8.3 g/dL 6.1 (H): Data is abnormally high (L): Data is abnormally low Latest Reference Range & Units 12/29/22 07:20 WBC 4.00 - 10.80 K/uL 21.19 (H) HGB 14.0 - 16.8 g/dL 13.9 (L) HCT 40.0 - 48.4 % 42.9 MCV 82.0 - 99.5 fL 91.5 PLT 140 - 400 K/uL 332 (H): Data is abnormally high (L): Data is abnormally low Blood Culture Growth No growth to date Fungal Culture: no fungus isolated to date. No year or hyphae seen on stain. Latest Reference Range & Units 12/29/22 07:20 Albumin 3.8 - 5.0 g/dL 3.5 (L) AST 10 - 50 U/L 51 (H) ALT 10 - 50 U/L 67 (H) Alkaline Phosphatase 35 - 130 U/L 289 (H) Bilirubin, Total <=1.2 mg/dL 1.3 (H) Bilirubin, Direct 0.0 - 0.3 mg/dL 0.5 (H) (L): Data is abnormally low (H): Data is abnormally high Imaging: no new imaging IMPRESSION and PLAN: is a 72 year old malewith a PMHx ofCLL (B-cell lymphoma), HTN, and pAFib on Eliquis, who presents with an unknown liver mass with concern for infection versus malignancy and KARISSA s/p aspiration and biopsy and is awaiting discharge. Liver Mass Pt has been afebrile with WBC remaining around baseline with non-elevated neutrophils and no bandemia on recent CBC, non-elevated pro-calcitonin, and no growth on culture to date. Limited fluid was drained on aspiration and biopsy, contributing to infectious cause less likely but cannot be ruled out. Neoplastic etiology still a possibility. Elevated LFTs likely due to aspiration and biopsy. - DC Zosyn and vancomycin to de-escalate for anticipatory discharge. Start Rocephin 1 g IV and Flagyl 500 mg PO q8h for enteric bacterial coverage for the next 3-5 days or until culture results. Consult ID for assurance. - Awaiting culture and cytology results. - Fat-restricted diet to prevent biliary attacks. - DC morphine 2 mg PRN IV. Start Ultram 25 mg q6h PRN. - Will set PCP and surgery appointments within 10 days after discharge. KARISSA BUN and Cr elevated with decreased eGFR today as compared to yesterday. Intrinsic etiology likely versus prerenal considering recent imaging with contrast, several days of vancomycin IV, and recent administration of Lasix. Still maintaining urinary output; likely to resolve. - BMP in AM to monitor Chronic lymphocytic Leukemia Pt is currently untreated for CLL. WBC 21.19 and absolute lymphocytes 12.22 today which is around his baseline from 6 months ago. - Will continue to monitor with CBC qd. Paroxysmal Atrial Fibrillation Elliquis was held and Lovenox was started waiting on surgery consideration for inpatient cholecystectomy. Surgery now waiting on cytology results before considering cholecystectomy. RRR on exam. CHADS-VASc score 2. -DC Lovenox. Restart Elliquis 5 mg for AC. - Continue STATISTICAL METHODS TEACHER Lopressor 50 BID and Cartizem ER 120 mg. - Encouraged periodic walking in the hallway. COPD -STATISTICAL METHODS TEACHER Trelegy. Duoneb PRN. Continue O2 @ 2L via NC Hyperlipidemia - Continue STATISTICAL METHODS TEACHER Lipitor 20 mg. OSCAR Davalos IV * Care Plan - Forrest Wright RN - 12/29/2022 4:24 AM EDT Clinical Goal(s): Ambulate in room (12/29/22 0000) Possible barriers to meeting goal(s)/advancing plan of care: Decreased activity, iv lines, abdominal pain Stability of the patient: Moderately stable - low risk of patient condition declining or worsening Summary regarding today's goal(s): Met: Ambulated in room at least once Recommendations: Encourage ambulation * Progress Notes - Non-Billable - Leonardo Valdovinos DO - 12/28/2022 6:57 PM EDT Post-Procedure Note: Subjective: Patient seen at bedside following IR drainage procedure. and daughter also at bedside. Currently reports wheezing sensation with his breathing, no chest pain. On baseline oxygen support. He notes similar feeling yesterday which improved with nebulizer treatment. Also reports discomfort at site of procedure in addition to previously noted pain in the RUQ. Objective: BP 151/70 | Pulse 72 | Temp 36.5 C (97.7 F) | Resp 20 | Ht 1.829 m (6') | Wt 109.3 kg (241 lb) | SpO2 92% | BMI 32.69 kg/m | BSA 2.36 m Physical Exam: Constitutional: awake and alert, no acute distress HEENT: grossly normocephalic, atraumatic, conjunctiva and sclera clear, moist mucous membranes CV: RRR, S1S2 present, no murmurs or gallops appreciated Resp: noted late-end expiratory wheezing in lower lung perez bilaterally, no crackles, no increased work of breathing Abd: soft, +tenderness in RUQ, +dressing in place Extremities: warm and well-perfused, no pitting edema Neuro: Alert and oriented with fluent speech, ,moves extremities spontaneously Assessment/Plan: 72 year old male with known CLL (B-cell lymphoma), pAFib on AC who was admitted with concern for mass vs abscess on abdominal imaging with differential including infection and malignancy. He remains hemodynamically stable on broad spectrum antibiotics s/p IR biopsy and drainage. Recovering well post-procedure. - Duonebs for wheezing and assess for improvement - Ok to resume diet as able - Will discuss with surgical team over the weekend regarding timing of cholecystectomy. Continue tohold Eliquis pending this discussion. - Reviewed with lab: not enough fluid to add AFB culture, but fungal culture now pending - F/u aerobic and anaerobic bacterial and fungal cultures - Continue broad spectrum antibiotics with vancomycin and Zosyn pending cultures - F/u cytology. Biopsies obtained and sent to pathology per procedure note and will need to be followed. - Remainder of plan as per daily progress note. Leonardo Valdovinos DO Internal Medicine-Pediatrics, PGY-3 [facility] * Progress Notes - Non-Billable - Domingo Lee DO - 12/28/2022 4:40 PM EDT PROCEDURE NOTE - Interventional Radiology [facility] [address] Name: Jh Fields JrMaki Location: RADIOLOGY WAITING ROOM/IR Date: 12/28/2022 Time: 4:40 PM PROCEDURE: US/CT guided hepatic lesion core needle biopsy and fluid aspiration. PLATING TECHNICIAN: Dr. Ghassan Jimenez and Domingo Lee RT ASSISTANTS: Courtney Vargas RT ANESTHESIA: local conscious sedation COMPLICATIONS: none SPECIMEN: fluid to laboratory Cytology ESTIMATED BLOOD LOSS: negligible FINDINGS: US/CT guided hepatic lesion core needle biopsy and fluid aspiration. * Pre-Sedation Assessment - Nik Mac MD - 12/28/2022 2:40 PM EDT PRE-SEDATION ASSESSMENT PRE-SEDATION ASSESSMENT: Hepatic Lesion Aspiration/Drainage Level of sedation planned: Moderate Patient's allergies reviewed: Yes H&P Review / Interval Note Documentation: I have reviewed the H&P previously performed, examined the patient today, and there are no new findings. Difficulty with sedation / anesthesia: No Sleep apnea: No History of snoring: Yes History of difficult intubation: No Decreased ROM neck flexion/extension: No Tracheal deviation: No Decreased ability to open mouth / TMJ: No Loose teeth / dentures / partial: Yes Congenital deformities / abnormalities: No Dysphagia: No Mallampati Classification: II - soft palate, uvula, fauces visible Chest: Clear Heart: Regular Rhythm ASA Risk Stratification (Select One): ASA 3 - Severe systemic disease, definite functional limitations The patient was identified and the procedure verified: Yes The patient was reevaluated immediately prior to the sedation: 12/28/2022 2:51 PM I have discussed the patient's management with the medical trainee and agree with the note. Please refer to the documented findings and plan of care. This patient's visit today consisted of a service. I have reviewed the medical history, physical examination, diagnosis, and plan, as performed by the trainee. Nik Mac MD * Ancillary Progress Note - Vanessa Aceves RDN - 12/28/2022 2:36 PM EDT CLINICAL NUTRITION ADULT RISK ASSESSMENT [address] [address] Name: Jh Fields Jr. Location: RADIOLOGY WAITING ROOM/IR Date: 12/28/2022 Time: 2:37 PM How patient was identified (select 2): Medical record number and Name Ronni Fields Jr. is a 72 year old male being assessed for clinical nutrition risk related to reduced dietary intake and significant unintentional weight loss Primary diagnosis: Liver abscess. Other pertinent information: The pt is currently NPO for IR today. No known food allergies. Decreased appetite prior to admission. The pt does wear upper dentures. Abdomen tender. Last bowel movementwas prior to admission. Anthropometrics Measurements Admission weight (for dietitians): 109.3 kg Height: 182.9 cm (6') (12/27/221714) Weight: 109.3 kg (241 lb) (12/27/221714) BMI: 32.68 (12/27/221714) Usual Body Weight or EDW for Dialysis Patients: ~124 kg (EHR Review) Diet: NPO Previously followed diet: Regular Food Allergies/Intolerances: None Oral Nutrition Supplement (ONS): None Pertinent medications/vitamins/minerals/supplements: Lasix (20 mg) RISK FACTORS: Adult Energy Intake: Less than 75% of estimated energy requirement for greater than 7 days (moderate, acute illness). Interpretation of Weight Change: No recent/significant weight change Skin: Intact NUTRITION RISK CATEGORY: Nutrition Risk Category: Low/Moderate (0-1 factors) Clinical Nutrition Recommendations: Diet: Advance diet when clinically feasible NUTRITION INTERVENTION/PLAN: Continue to monitor NPO/clear liquid status Will follow and adjust nutritional plan as medical condition requires. Please contact for change(s)in patient condition requiring earlier intervention. Vanessa Aceves RDN, ZAKIAN Clinical Nutrition Services Phone: [phone] [facility] * Ancillary Progress Note - Nayeli Chavarria RN - 12/28/2022 9:31 AM EDT CARE MANAGEMENT - ADULT INITIAL SCREENING [address] [address] Name: Jh Reveleshaim Brooks Location: [facility] B733/A Date: 12/28/2022 Time: 9:31 AM Patient Class: Inpatient (12/28/22928) Discussed patient with the interdisciplinary care team. This Hydraulic Press Tender performed a chart review and met with patient at bedside to complete admission screen and assessed needs for transition planning. The health care specialist role and services were explained and emotional support was provided. 30 Day Readmission Screening 30 Day Readmission Readmission within 30 days?: No (12/28/22928) Chief Complaint: Abnormal Test Results Prior Living Arrangements What was your living situation prior to admission/observation?: Independently;With Spouse () Do you have any children, pets, or other dependents that you are currently caring for?: No (12/28/22928) Living Quarters: House (12/28/22928) How many stories is the dwelling?: One Story (12/28/22928) Number of steps to enter living quarters:: 5 (12/28/22928) Location of bathroom(s): All floors or Single story dwelling (12/28/22928) Do you have serious difficulty walking or climbing stairs? (5 years old or older): No (12/28/22928) History of falling: No (12/28/22699) Prior Level of Functioning Describe the patient's ability prior to admission/observation to perform ADLs: Performs independently (12/28/22928) Describe the patient's mobility status prior to admission: Patient ambulates independently (12/28/22928) Patient uses assistive device: No (12/28/22928) Caregiver Information Patient Contacts Name Relation Home Work Mobile ANGEL FIELDS Spouse [phone] MANE HDZ Adult Child [phone] Eloy Shoaibolivia Adult Child [phone] Melonie Wallace Adult Child [phone] Risk Stratification/Psychosocial/Care Gaps Risk Stratification Readmission Risk Score: 12.83 (12/28/22800) AM-PAC Score With Stairs : 24 (12/28/22720) Comments: STATISTICAL METHODS TEACHER patient lived with spouse in single story house with 5 AMARILYS. Patient is independent with ADLs and uses no dme. DME in home includes walker for occasion, and oxygen through [employer]. Used hhin past but cannot remember who. No rehab or snf stays. Patient is still driving. Prior to Admission Services Services Prior to Admission STATISTICAL METHODS TEACHER Services (Services received within the last 30 days with exception, Psych within last two years): Durable Medical Equipment (12/28/22928) STATISTICAL METHODS TEACHER Durable Medical Equipment (DME) in home: Oxygen (name) - Comment (12/28/22928) DME Name: [employer] (12/28/22928) STATISTICAL METHODS TEACHER Transportation (Services received within the last 30 days): Family/Friends Personal Vehicle;Patient drives self (12/28/22928) Outpatient Hydraulic Press Tender: no, not applicable Patient/Family Expectations: home, unsure of needs Anticipated Disposition Plan & Post Acute Needs Anticipated Plan Anticipated D/C disposition per abbreviated screening: Post hospitalization needs identified, continue to monitor for transition planning (12/28/22928) For further screening information, please refer to the Care Management flow document. * Progress Notes - Non-Billable - LATRICE Saavedra - 12/28/2022 8:24 AM EDT Brief Interventional Radiology Progress Note Received request for drainage of hepatin abscesses d/t previously perforate cholecystitis. Chart and imaging reviewed. Will plan for aspiration vs drain placement of 2 liver abscesses in IR as schedule permits. Please contact IR with any questions or concerns. * Progress Notes - Non-Billable - Suhas Auguste, Medical Student - 12/28/2022 6:29 AM EDT PROGRESS NOTE - General Internal Medicine Service [facility] [address] Name: Jh Fields Jr. Location: [facility] B733/A Date: 12/28/2022 Time: 6:30 AM Unless the attending has added an attestation supporting use of this note to document a billable service, the signature of the Licensed Professional on this note only acknowledges the presence of thestudent's note within the patient record and the Licensed Professional's note should be referred tofor clinical information and recommendations. SUBJECTIVE: Mr. Fields is a 72 year old malewith a PMHx of B-CLL, HTN, pAFib on Eliquis, who was admitted for RUQ abdominal pain concerning for infection or abscess and possible malignancy. Overnight pt reported increased RUQ pain after dinner. Pain was improved with morphine x2. Pt ratespain this morning as 9/10. Denies nausea, vomiting, or SOB. Pt has no other complaints at this time. Review of Systems Constitutional: Negative for diaphoresis and fever. Respiratory: Negative for shortness of breath and wheezing. Cardiovascular: Negative for chest pain and palpitations. Gastrointestinal: Positive for abdominal pain (RUQ). Negative for constipation, diarrhea, nausea and vomiting. Genitourinary: Negative for decreased urine volume, dysuria and urgency. OBJECTIVE: Most Recent Vital Signs: BP: 128 mmHg/69 mmHg (12/28/22505) Pulse: 66 (12/28/22505) Temp: 36.28 C (12/28/22505) Resp: 19 (12/28/22505) SpO2: 92 % (12/28/22505) Vital Signs Last 24 Hours: Systolic BP: Most Recent Systolic BP Av.9 mmHg Min: 111 mmHg Max: 170 mmHg Temperature: Most Recent Temperature Av.6 C Min: 36.11 C Max: 36.89 C Pulse: Pulse Av.2 Min: 66 Max: 102 Respirations: Resp Av.2 Min: 17 Max: 25 SpO2: SpO2 Av.2 % Min: 92 % Max: 97 % Physical Exam Constitutional: Appearance: Normal appearance. HENT: Head: Normocephalic and atraumatic. Cardiovascular: Rate and Rhythm: Normal rate and regular rhythm. Pulses: Normal pulses. Heart sounds: Normal heart sounds. Pulmonary: Effort: Pulmonary effort is normal. Breath sounds: Normal breath sounds. Abdominal: General: Bowel sounds are normal. Palpations: Abdomen is soft. Tenderness: There is abdominal tenderness (RUQ). Musculoskeletal: Right lower leg: No edema. Left lower leg: No edema. Skin: General: Skin is warm and dry. Capillary Refill: Capillary refill takes less than 2 seconds. Neurological: General: No focal deficit present. Mental Status: He is alert and oriented to person, place, and time. Mental status is at baseline. LABS: Latest Reference Range & Units 12/28/22 09:18 WBC 4.00 - 10.80 K/uL 19.98 (H) HGB 14.0 - 16.8 g/dL 13.9 (L) HCT 40.0 - 48.4 % 43.0 MCV 82.0 - 99.5 fL 92.3 PLT 140 - 400 K/uL 318 Absolute Neutrophils 1.80 - 7.70 K/uL 9.79 (H) Absolute Lymphocytes 1.00 - 4.80 K/uL 8.59 (H) Absolute Monocytes 0.00 - 1.10 K/uL 1.40 (H) Absolute Eosinophils 0.00 - 0.70 K/uL 0.20 (H): Data is abnormally high (L): Data is abnormally low Latest Reference Range & Units 12/28/22 09:18 Sodium 135 - 146 mmol/L 137 Potassium 3.5 - 5.1 mmol/L 4.4 Chloride 98 - 107 mmol/L 102 CO2 22 - 32 mmol/L 24 BUN 6 - 20 mg/dL 19 Creatinine 0.6 - 1.2 mg/dL 1.1 Estimated Glomerular Filtration Rate >=60 mL/min 70 Anion Gap 7 - 15 mmol/L 11 Glucose 70 - 120 mg/dL 120 Calcium 8.4 - 10.2 mg/dL 9.0 IMAGING: No new imaging. IMPRESSION and PLAN: Mr. Fields is a 72 year old malewith a PMHx of CLL (B-cell lymphoma), HTN, pAFib on Eliquis, who was admitted for RUQ abdominal pain concerning for infection or abscess and possible malignancy with plan for percutaneous drainage and is currently hemodynamically stable. RUQ Abdominal Pain: RUQ pain last night likely biliary colic triggered by dinner. Will switch diet to fat-reduced diet after procedure. Surgery and IR on board. Percutaneous aspiration of abscess planned for today. Culture and cytology of aspirate ordered. NPO. Zosyn and Vancomycin continued per IR and plan to continue until culture results. Chronic Lymphocytic Leukemia: WBC 19.98 and lymphocytes 13.9. Will continue to monitor. Paroxysmal Atrial Fibrillation: Continue Lopressor 50 mg BID and Cartizem ER 120 mg. Hold Elliquis 5 mg for procedure and to continue hold until clarification of plan from surgery. 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 Duoneb PRN. Continue 2L O2. Hyperlipidemia: Continue Lipitor 20 mg. PHARMACOLOGIC VTE PROPHYLAXIS:Eliquis Tabs CODE STATUS:Full Code Suhas Auguste, OMSweetie IV * Care Plan - Filomena Reina RN - 12/28/2022 3:44 AM EDT Problem: Pain & Impaired Comfort Goal: Patient's pain & discomfort is manageable. Outcome: Progressing Clinical Goal(s): pt will have adequate pain control during the shift (12/27/221924) Possible barriers to meeting goal(s)/advancing plan of care: intra abdominal abscess Stability of the patient: Moderately stable - low risk of patient condition declining or worsening Summary regarding today's goal(s): Not Met: pt has complain of severe abdo pain during the shift Recommendations: To continue pain monitoring. * Ancillary Progress Note - Terry Meraz CRT - 12/27/2022 6:00 PM EDT PATIENT DRIVEN PROTOCOL - Respiratory Care Services [address] [address] Name: Jh Fields Jr. Location: [facility] B733/A Date: 12/27/2022 Time: 6:00 PM Patient Driven Protocol Summary: Initial evaluation performed. This Treatment Plan and medications will be reviewed by the Primary Care Team for any contraindications. Respiratory Care Treatment Plan Aerosol Therapy Treatment:: Inhaler(s) QDAY with Trelegy Ellipta (fluticasone furoate 100 mcg, umeclidinium 62.5 mcg and Vilanterol 25 mcg inhalation powder) / 1 inhalation to suppress bronchial inflammation and edema by the use of systemic steroid sparing therapy. Additional Aerosolized Treatments: Inhaler(s) PRN with Albuterol Sulfate: 2 puffs to reduce work of breathing and improve pulmonary gas exchange. Pulmonary Volume Expansion Therapy: Incentive Spirometry PRN to prevent or treat alveolar consolidation and atelectasis. The patient will be re-evaluated: No re-evaluation needed. Indications for treatment met. The Triage Level is: (Assessment Score = 0 - 5) Level 5. Triage Level Definitions: Level 1 Severe Respiratory/Airway Compromise Level 2 Moderate Respiratory/Airway Compromise or high risk for pulmonary complications Level 3 Mild Respiratory/Airway Compromise or moderate risk for pulmonary complications Level 4 Episodic Respiratory/Airway Compromise or low risk for pulmonary complications Level 5 No Respiratory/Airway Compromise Triage 1 Triage 2 Triage 3 Triage 4 Triage 5 greater than 20 16 - 20 11 - 15 6 - 10 0 - 5 Medical Record Assessment Clinical Findings Pulmonary Status: 0 - No Smoking or quit greater than 10 years ago Surgical Status: 0 - No Surgical History Chest X-Ray: 0 - Not Performed or performed greater than 3 days ago Assessment Score: 0 Patient Assessment Clinical Findings Respiratory Pattern: 1 - RR 21 - 25; Patient gets short of breath when hurrying on level ground or walking up a slight hill. Breath Sounds: 2 - Diminished bilaterally Cough Effectiveness: 0 - Strong non-productive Sputum Production: 0 - No sputum production Level of Activity: 0 - Ambulatory O2 needed to keep SpO2 greater than or equal to 92%: 1 - Oxygen 1-3 LPM or FiO2 less than 35% Assessment Score: 4 Total Assessment Score: 4 Breath Sounds: Inspiratory and expiratory diminished bilaterally.. Cough and Sputum: An effective cough produced no sputum... CXR: not performed. Vital Signs: Resp: 25 (12/27/22 165) Pulse: 91 (12/27/22 1714) Temp: 36.8 C (98.2 F) (12/27/221658) BP: 154/91 (12/27/22 1714) SpO2: 97 % (12/27/221713) PFT: Minimal Predicted IC: 1.11 L. Inspiratory capacity: 1.5 L. Primary Service: [facility]. Admitting Diagnosis: Intra-abdominal abscess (HCC) [K65.1] Pulmonary Diagnosis: COPD. Prescriptions/Home Medications/Durable Medical Equipment: Trelegy, PRN Albuterol, 2L continuous O2. Recommended New home medications/durable medical equipment/outpatient pulmonary/sleep referral n/a. * Communication - Lu Delgado RN - 12/27/2022 3:25 PM EDT Hand-Off - Nurse Communication Note Name: Jh Fields Jr. Location: 29 Date: 12/27/2022 Time: 3:26 PM Sending to: [id number] Safety Concerns: Fall Risk Allergies: Lisinopril Code Status: No code status on file Isolation: None Isolation flowsheet: Special Needs: Special Needs comments: Attention to: Cristal Patterson RN Report from: Lu Delgado RN Phone extension: [phone] Patient arriving via: Stretcher Reason for SBAR handoff: Admission Situation/Background Patient is a male with B-cell lymphoma, a-fib on Eliquis and COPD (2L o2 dependence, 3-4L for exertion presenting to the ED with right upper quadrant. Admission date: 12/27/2022 Patient Service: [facility] [[id number]] Attending Provider: Isreal Gallagher MD Admitting diagnosis: Intra-abdominal abscess (HCC) Chief Complaint: Abnormal Test Results Problem list: Active Problems: * No active hospital problems. * Resolved Problems: * No resolved hospital problems. * Level of Care: Med Surg [3] Assessment Vital Signs: BP: 141/71 (12/27/22 1400) Temp: 36.9 C (98.4 F) (12/27/22 1400) Pulse: 81 (12/27/22 1400) Resp: 18 (12/27/22 1400) SpO2: 93 % (12/27/22 1400) Weight: 109.3 kg (241 lb) (12/27/22 1009) Fall Scale: Fall Score: 15 (12/27/22 120) Fall Interventions: Bed at low level;Walk path free of obstacles;Floor free of clutter (12/27/22 120) Neurological: Darby Coma Scale Eyes Open: Spontaneous (12/27/22 1009) Best Verbal Response: Verbally appropriate for age (12/27/22 1009) Best Motor Response: Obeys commands appropriate for age (12/27/22 1009) Coma Score: 15 (12/27/22 1009) Additional Neurological Information: Respiratory: Respiratory WNL: X- Exceptions to WNL (12/27/22 120) Cough: Occasional;Productive (12/27/22 120) Depth/Rhythm: Regular (12/27/22 120) Dyspnea Occurance: With Exertion (12/27/22 120) Effort: Unlabored (12/27/22 120) Oxygen therapy/ Mechanical vent O2 flow rate: 2 L/MIN (12/27/22 1400) Supplemental O2 Delivery: Nasal Cannula (12/27/22 1400) O2 flow rate: 2 L/MIN (12/27/22 1400) Additional Respiratory Information: Cardiac: Extremities: +Sensation;Right;Left;Upper;Lower;Warm (12/27/22 120) Pulses Right: Radial +;Post Tibial + (12/27/22 120) Pulses Left: Radial +;Post Tibial + (12/27/22 120) Edema: Yes (12/27/221201) Edema Location: Lower extremities;Left (12/27/221201) Edema Assessment: (trace, LLE (pt reports as baseline) (12/27/221201) Additional Cardiac Information: GI/: Abdomen: Tender;Firm;Distended (12/27/221201) Additional GI/ Information: Integumentary: Skin Description: Dry;Warm (12/27/221201) Skin Color: Flesh Tone;Nail beds pink;Mucus Membranes [place] (12/27/221201) Additional Integumentary Information: Restraints: No orders of the defined types were placed in this encounter. Lines: Peripheral Line Left;Lower;Posterior Arm 20 Gauge (Active) Number of days: 0 Labs: Labs This Encounter COMPREHENSIVE METABOLIC PANEL - Abnormal; Notable for the following components: Result Value Ref Range BUN 21 6 - 20 mg/dL Glucose 136 70 - 120 mg/dL Alkaline Phosphatase 312 35 - 130 U/L ALT 71 10 - 50 U/L All other components within normal limits LACTATE - Abnormal; Notable for the following components: Lactate 2.3 0.4 - 2.0 mmol/L All other components within normal limits CRP (INFLAMMATORY MARKER) - Abnormal; Notable for the following components: CRP (Inflammatory Marker) 21 <=5 mg/L All other components within normal limits CBC - Abnormal; Notable for the following components: WBC 25.46 4.00 - 10.80 K/uL All other components within normal limits DIFFERENTIAL, TECHNOLOGIST REVIEW - Abnormal; Notable for the following components: WBC 25.46 4.00 - 10.80 K/uL Neutrophils % 32.0 40.0 - 75.0 % Lymphocytes % 68.0 18.0 - 42.0 % Absolute Neutrophils 8.15 1.80 - 7.70 K/uL Absolute Lymphocytes 17.31 1.00 - 4.80 K/uL Reactive Lymphocytes Present None Seen All other components within normal limits PROCALCITONIN - Normal Narrative: Less than 0.5 ng/mL: Low risk for progression to sepsis. Review patients condition for localized infections. 0.5 to 2.0 ng/mL: Intermediate risk for progresion to sepsis. Review underlying conditions. Recommend repeat PCT after 6 hours has elapsed. Greater than 2.0 ng/mL: high risk for progression to sepsis unless other causes are known. CBC WITH WBC DIFFERENTIAL Narrative: The following orders were created for panel order CBC WITH WBC DIFFERENTIAL. Procedure Abnormality Status --------- ------ CBC[[id number]] Abnormal Final result DIFFERENTIAL, AUTOMATED[[id number]] Final result DIFFERENTIAL, TECHNOLOGI...[[id number]] Abnormal Final result Please view results for these tests on the individual orders. EXTRA LIGHT BLUE TOP DIFFERENTIAL, AUTOMATED TYPE AND SCREEN ABO/RH CULTURE, BLOOD CULTURE, BLOOD Diet: No orders of the defined types were placed in this encounter. Additional Diet Information: Intake and Output: No intake or output data in the 24 hours ending 12/27/22 1526 Patient Belongings and Home Medications Patient Belongings at Bedside Belongings at Bedside: Clothing (12/27/22 120) Clothing: Pants;Shirt;Footwear (12/27/22 120) Patient Belongings Sent Home (Does not apply to Ambulatory areas) Belongings Sent Home: Other valuables (12/27/22 1202) Other Valuables: Wallet () (12/27/22 120) Patient Belongings Sent to Safe/Locker Belongings Sent to Safe: None (12/27/22 120) Patient Medications Medications Brought by Patient?: No (12/27/22 120) Recommendations/Follow up Goals/Plan of Care: Admission dx: intra-abdominal abscess; IV antibiotics, IR consult: abscess versus infection from prior perforated cholecystitis Per general surgery consult: IMPRESSION and PLAN: Jh Cortez Donnie Brooks is a 72 year old, male with B-cell lymphoma, a-fib on Eliquis and COPD foundto have abscess vs mass near gallbladder. - No acute general surgical interventions indicated at this time - Recommend medicine admission - Recommend IR consult for drainage - Will follow - Please reach out with questions or concerns Consults not completed: IR consult Anticipated tests/studies/procedures: Medication Reconcilliation completed for this Admission? Yes * Medical Necessity - Melany Ramirez RN - 12/27/2022 2:30 PM EDT AdmissionCare Guideline: Gastroenterology, Severe, Inpatient Based on the indications selected for the patient, the bed status of Admit to Inpatient was determined to be MET The following indications were selected as present at the time of evaluation of the patient: Suspected acute intra-abdominal process, as indicated by 1 or more of the following: - - Other signs or symptoms of acute abdominal disease (eg, severe pain, free air) Additional Information: Presents to ED with rigright upper quadrant pain. MRI- Rim enhancing liver lesions clustered around the gallbladder fossa are most suspicious for abscesses/infection. CRP 21 lactate 2.3 WBC 25.46 Vancocin IV Zosyn IV Solely for purpose of utilization review and payment; not a diagnostic tool. AdmissionCare documentation entered by: Melany Ramirez [facility], 26th edition, Copyright 2021 [facility] [employer] All Rights Reserved. [id number] documented in this encounter Plan of Treatment Upcoming Encounters Date Type Specialty Care Team Description 01/02/2023 Office Visit Hematology Oncology Flaquito, Scout Seymour MD [address] [place] [phone] 01/07/2023 Office Visit General Surgery Chloe Dong MD [address] [place] [address] 01/07/2023 Office Visit Family Medicine William Ch PA-C [address] [place] [phone] 01/22/2023 Office Visit General Surgery Anthony Tirado MD [address] [place], [place] [phone] 01/23/2023 Office Visit Family Medicine Chema Combs MD [address] [place], [place] [phone] 09/19/2023 Office Visit Cardiology Prashant Ruiz, DO [address] [place] [phone] Pending Results Name Type Priority Associated Diagnoses Date /Time IR ASPIRATION ABSCESS/COLLECTION Medical Imaging Routine 12/28/2022 4: 31 PM EDT CYTOLOGY Pathology Routine 12/28/2022 4:2 4 PM EDT CULTURE,FUNGUS,NON-DE RM Lab Routine 12/28/2022 3:30 PM EDT CULTURE, WOUND, DEEP, AEROBIC AND ANAEROBIC Lab STAT 12/28/2022 3:30 PM EDT Scheduled Orders Name Type Priority Associated Diagnoses Orde r Schedule CYTOLOGY Pathology Routine One Time for 1 Occurrences starting 12/28/2022 until 12/28/2022, 1 completed CULTURE, AFB Lab Routine One Time for 1 Occurrences starting 12/28/2022 until 12/28/2022 CYTOLOGY Pathology Routine One Time for 1 Occurrences starting 12/28/2022 until 12/28/2022 BASIC METABOLIC PANEL Lab Routine Localized edema KARISSA (acute kidney injury) (HCC) Therapeutic drug monitoring Expected: 01/08/2023, Expires: 01/02/2024 Scheduled Procedures Name Priority Associated Diagnoses Date/Ti [...] ASSESSMENT COMPLETED IN PAST YEAR FOR COPD 01/02/2024 01/01/2023 Colonoscopy 07/06/2026 07/06/2016, 07/06/2016 Colorectal Cancer Screening [...] 08/29/2016 LUNG CANCER SCREENING - USE SMARTSET [id number] Completed 10/01/2017 Zoster Vaccines Completed 12/14/2019, 09/24, 02/16/2013 GARDASIL-HPV IMMUNIZATION SERIES Aged Out No longer eligible based on patient's age to complete this topic Hepatitis B Aged Out No longer eligi ble based on patient's age to complete this topic documented as of this encounter Medical Devices Not on filedocumented as of this encounter Procedures Procedure Name Priority Date/Time Associated Diagnosis Comments BASIC METABOLIC PANEL Routine 01/01/2023 7:31 AM EDT CBC Routine 01/01/2023 7:31 AM EDT NM HEPATOBILIARY SYSTEM Routine 12/31/2022 10:45 AM EDT BASIC METABOLIC PANEL Routine 12/31/2022 7:49 AM EDT CBC Routine 12/31/2022 7:49 AM EDT HEPATIC FUNCTION PANEL Routine 12/30/2022 8:54 AM EDT BASIC METABOLIC PANEL Routine 12/30/2022 8:54 AM EDT CBC Routine 12/30/2022 8:54 AM EDT DIFFERENTIAL, AUTOMATED Routine 12/29/2022 7:20 AM EDT VANCOMYCIN RANDOM Routine 12/29/2022 7:20 AM EDT HEPATIC FUNCTION PANEL Routine 12/29/2022 7:20 AM EDT BASIC METABOLIC PANEL Routine 12/29/2022 7:20 AM EDT CBC WITH WBC DIFFERENTIAL Routine 12/29/2022 7:20 AM EDT CBC Routine 12/29/2022 7:20 AM EDT IR ASPIRATION ABSCESS/COLLECTIO N Routine 12/28/2022 4:31 PM EDT Procedure Note - Ghassan Jimenez MD / Domingo Lee DO - 12/28/2022 4:31 PM EDTThis note is in progress. PROCEDURE: Ultrasound/CT-guided percutaneous right hepatic lesion/collectionbiopsy. INDICATION: Multiple right hepatic lesions/collections. ATTENDING (OPERATING PHYSICIAN): Ghassan Jimenez MD SCRUBBED RESIDENT (OPERATING PHYSICIAN): Domingo Lee DO SUPPORTING PROVIDER (MANUFACTURING ASSOCIATE): None. CONSENT: After a detailed discussion of the procedure, risks, benefits andalternative treatment options, informed consent was obtained. TIME OUT: A time out procedure was performed. The patient's identificationwas verified. Informed consent with agreement of procedure, site andposition was obtained. All necessary equipment was available prior toprocedure. CONTRAST: No contrast administered. COMPLICATIONS: None. ANESTHESIA: Local lidocaine. IV Versed. IV Fentanyl. SEDATION TIME: Start to end: 1512 to 1625. Qualified nurse sedationobserver Tanya Ivory RN. MEDICATIONS: See MAR PROCEDURE DESCRIPTION: After survey ultrasound/CT images of the liverwere performed, the 1st right hepatic lesion was studied. The subcostalaccess site was selected and prepped and draped in the usual sterilefashion. The skin and deep soft tissues were anesthetized and using imageguidance, a 5 Fr one-step catheter-needle was inserted into thecollection. Fluid was unable to be aspirated. Attention was then turned to the subxiphoid/subcostal access site whereafter survey ultrasound/CT images of the liver were performed, the 2ndright hepatic lesion was studied. The access site was selected andprepped and draped in the usual sterile fashion. The skin and deep softtissues were anesthetized and using image guidance, a 5 [place] one-stepcatheter needle was inserted into the collection. Fluid was unable to beaspirated. Subsequently, under ultrasound/CT guidance a 17 gauge coaxialneedle was advanced just within the lesion margin. After satisfactorypositioning was confirmed, the inner stylet was removed and 6 18 gaugecore biopsy specimens were obtained and placed in a vial of sterilesaline. The cannula was then removed, hemostasis was achieved and thesite was dressed. The patient tolerated the procedure well. The procedure was performed under the personal supervision of Dr. Mckeon who was present during the entire procedure. FINDINGS: Limited ultrasound/CT scan images for the purposes of biopsy demonstratetwo right hepatic lobe lesions. Further imaging shows the one-step andcoaxial needles seen within the margin of the targets with more thanadequate for aspiration and biopsy throws. No immediate complication onpost biopsy imaging. IMPRESSION IMPRESSION: Successful ultrasound/CT-guided percutaneous right hepatic lobe lesionbiopsy. PLAN: Ordering clinician to follow-up results with patient. CULTURE, WOUND, DEEP, AEROBIC AND ANAEROBIC STAT 12/28/2022 3:30 PM EDT CULTURE,FUNGUS,NO N-DERM Routine 12/28/2022 3:30 PM EDT DIFFERENTIAL, AUTOMATED Routine 12/28/2022 9:18 AM EDT BASIC METABOLIC PANEL Routine 12/28/2022 9:18 AM EDT CBC WITH WBC DIFFERENTIAL Routine 12/28/2022 9:18 AM EDT CBC Routine 12/28/2022 9:18 AM EDT DIFFERENTIAL, TECHNOLOGIST REVIEW Routine 12/28/2022 9:18 AM EDT ABO/RH STAT 12/27/2022 10:29 AM EDT TYPE AND SCREEN STAT 12/27/2022 10:29 AM EDT CULTURE, BLOOD Routine 12/27/2022 10:29 AM EDT EXTRA LIGHT BLUE TOP Routine 12/27/2022 10:26 AM EDT DIFFERENTIAL, AUTOMATED STAT 12/27/2022 10:26 AM EDT PROCALCITONIN STAT 12/27/2022 10:26 AM EDT CRP (INFLAMMATORY MARKER) STAT 12/27/2022 10:26 AM EDT COMPREHENSIVE METABOLIC PANEL STAT 12/27/2022 10:26 AM EDT CBC WITH WBC DIFFERENTIAL STAT 12/27/2022 10:26 AM EDT LACTATE STAT 12/27/2022 10:26 AM EDT CULTURE, BLOOD Routine 12/27/2022 10:26 AM EDT CBC STAT 12/27/2022 10:26 AM EDT DIFFERENTIAL, TECHNOLOGIST REVIEW Routine 12/27/2022 10:26 AM EDT documented in this encounter Results * (ABNORMAL) CBC (01/01/2023 7:31 AM EDT) WBC 18.81(H) 4.00 - 10.80 K/uL 01/01/2023 7:59 AM EDT [facility] RBC 4.79 4.50 - 5.25 M/uL 01/01/2023 7:59 AM EDT [facility] HGB 14.5 14.0 - 16.8 g/dL 01/01/2023 7:59 AM EDT [facility] HCT 43.9 40.0 - 48.4 % 01/01/2023 7:59 AM EDT [facility] MCV 91.6 82.0 - 99.5 fL 01/01/2023 7:59 AM EDT [facility] MCH 30.3 27.0 - 34.0 pg 01/01/2023 7:59 AM EDT [facility] MCHC 33.0 32.0 - 36.0 g/dL 01/01/2023 7:59 AM EDT [facility] RDW 13.9 11.5 - 15.5 % 01/01/2023 7:59 AM EDT [facility] PLT 381 140 - 400 K/uL 01/01/2023 7:59 AM EDT [facility] MPV 9.3 6.6 - 11.1 fL 01/01/2023 7:59 AM EDT [facility] nRBCs 0 <=0 /100 WBCs 01/01/2023 7:59 AM EDT [facility] Blood Venous blood specimen / Unknown Venipuncture / Unknown 01/01/2023 7:31 AM EDT 01/01/2023 7:45 AM EDT Kristyn Andersen McPhedran DO LAB BLO OD ORDERABLES [facility] [address] [place], [place] [id number] * (ABNORMAL) BASIC METABOLIC PANEL (01/01/2023 7:31 AM EDT) BUN 21(H) 6 - 20 mg/dL 01/01/2023 8:23 AM EDT [facility] Creatinine 1.1 0.6 - 1.2 mg/dL 01/01/2023 8:23 AM EDT [facility] Estimated Glomerular Filtration Rate 71 >=60 mL/min 01/01/2023 8:23 AM EDT [facility] Comment:eGFR is calculated b ased on the CKD-EPI 2020 equation Sodium 135 135 - 146 mmol/L 01/01/2023 8:23 AM EDT LABORATORY [facility] Potassium 01/01/2023 8:23 AM EDT LABORATORY [facility] Comment:Specimen too hemolyz ed. Reorder if needed. Chloride 101 98 - 107 mmol/L 01/01/2023 8:23 AM EDT LABORATORY [facility] CO2 24 22 - 32 mmol/L 01/01/2023 8:23 AM EDT LABORATORY [facility] Anion Gap 10 7 - 15 mmol/L 01/01/2023 8:23 AM EDT LABORATORY [facility] Glucose 117 70 - 120 mg/dL 01/01/2023 8:23 AM EDT LABORATORY [facility] Calcium 9.2 8.4 - 10.2 mg/dL 01/01/2023 8:23 AM EDT LABORATORY [facility] Blood Venous blood specimen / Unknown Venipuncture / Unknown 01/01/2023 7:31 AM EDT 01/01/2023 7:45 AM EDT Kristyn Sanz [place] McPhedran DO LAB BLO OD ORDERABLES LABORATORY [facility] [address] [place] [address] * NM HEPATOBILIARY SYSTEM (12/31/2022 10:45 AM EDT) Anatomical Region Laterality Modality Abdomen Computed Tomogra phy 12/31/2022 10:5 9 AM EDT Impressions 12/31/2022 11:26 AM EDT IMPRESSION Nonvisualization of the gallbladder highly concerning for cystic duct obstruction. The common bile duct is patent. I have personally reviewed this examination and agree with the resident/fellow physician's interpretation. Narrative 12/31/2022 11:26 AM EDT EXAM NM HEPATOBILIARY SYSTEM - 12/31/2022 10:45 am HISTORY 72yo m with liver mass vs. abscess s/p IR biopsy COMPARISON Abdominal ultrasound dated 12/24/2022. MRI abdomen dated 12/26/2022. TECHNIQUE Following the intravenous administration of 5.6 mCi of Tc-99m mebrofenin (Choletec), dynamic anterior imaging of the right upper quadrant was performed for 60 minutes. FINDINGS Prompt uptake of radiotracer seen throughout the hepatic parenchyma with chest soft tissue attenuation overlying the hepatic dome. The central biliary ducts and the common bile duct are visualized. Nonvisualization of the gallbladder post morphine administration. Small bowel activity is seen at 10 minutes. Procedure Note Beto Dai DO - 12/31/2022 EXAM NM HEPATOBILIARY SYSTEM - 12/31/2022 10:45 am HISTORY 72yo m with liver mass vs. abscess s/p IR biopsy COMPARISON Abdominal ultrasound dated 12/24/2022. MRI abdomen dated 12/26/2022. TECHNIQUE Following the intravenous administration of 5.6 mCi of Tc-99m mebrofenin(Choletec), dynamic anterior imaging of the right upper quadrant wasperformed for 60 minutes. FINDINGS Prompt uptake of radiotracer seen throughout the hepatic parenchyma withchest soft tissue attenuation overlying the hepatic dome. The centralbiliary ducts and the common bile duct are visualized. Nonvisualizationof the gallbladder post morphine administration. Small bowel activity isseen at 10 minutes. IMPRESSION IMPRESSION Nonvisualization of the gallbladder highly concerning for cystic ductobstruction. The common bile duct is patent. I have personally reviewed this examination and agree with the resident/fellow physician's interpretation. Kristyn Andersen [facility] * (ABNORMAL) CBC (12/31/2022 7:49 AM EDT) WBC 20.58(H) 4.00 - 10.80 K/uL 12/31/2022 8:14 AM EDT [facility] RBC 4.60 4.50 - 5.25 M/uL 12/31/2022 8:14 AM EDT [facility] HGB 13.6(L) 14.0 - 16.8 g/dL 12/31/2022 8:14 AM EDT [facility] HCT 42.3 40.0 - 48.4 % 12/31/2022 8:14 AM EDT [facility] MCV 92.0 82.0 - 99.5 fL 12/31/2022 8:14 AM EDT [facility] MCH 29.6 27.0 - 34.0 pg 12/31/2022 8:14 AM EDT [facility] MCHC 32.2 32.0 - 36.0 g/dL 12/31/2022 8:14 AM EDT LABORATORY [facility] RDW 14.1 11.5 - 15.5 % 12/31/2022 8:14 AM EDT LABORATORY [facility] PLT 361 140 - 400 K/uL 12/31/2022 8:14 AM EDT LABORATORY [facility] MPV 9.3 6.6 - 11.1 fL 12/31/2022 8:14 AM EDT LABORATORY [facility] nRBCs 0 <=0 /100 WBCs 12/31/2022 8:14 AM EDT LABORATORY [facility] Blood Venous blood specimen / Unknown Venipuncture / Unknown 12/31/2022 7:49 AM EDT 12/31/2022 8:06 AM EDT Kristyn Andersen McPhedran DO LAB BLO OD ORDERABLES LABORATORY [facility] [address] [place] [address] * (ABNORMAL) BASIC METABOLIC PANEL (12/31/2022 7:49 AM EDT) BUN 20 6 - 20 mg/dL 12/31/2022 8:33 AM EDT [facility] Creatinine 1.1 0.6 - 1.2 mg/dL 12/31/2022 8:33 AM EDT LABORATORY [facility] Estimated Glomerular Filtration Rate 71 >=60 mL/min 12/31/2022 8:33 AM EDT LABORATORY C Comment:eGFR is calculated b ased on the CKD-EPI 2020 equation Sodium 134(L) 135 - 146 mmol/L 12/31/2022 8:33 AM EDT [facility] Potassium 4.2 3.5 - 5.1 mmol/L 12/31/2022 8:33 AM EDT [facility] Comment:Result may be falsel y elevated due to hemolysis. Chloride 99 98 - 107 mmol/L 12/31/2022 8:33 AM EDT [facility] CO2 24 22 - 32 mmol/L 12/31/2022 8:33 AM EDT [facility] Anion Gap 11 7 - 15 mmol/L 12/31/2022 8:33 AM EDT [facility] Glucose 123(H) 70 - 120 mg/dL 12/31/2022 8:33 AM EDT [facility] Calcium 9.3 8.4 - 10.2 mg/dL 12/31/2022 8:33 AM EDT [facility] Blood Venous blood specimen / Unknown Venipuncture / Unknown 12/31/2022 7:49 AM EDT 12/31/2022 8:06 AM EDT Kristyn Gonzalez DO LAB BLO OD ORDERABLES Performing Organization Address [facility] Co de Phone Number [facility] [address] [place] [address] * (ABNORMAL) HEPATIC FUNCTION PANEL (12/30/2022 8:54 AM EDT) Pathologist [facility] Albumin 3.6(L) 3.8 - 5.0 g/dL 12/30/2022 10:08 AM EDT [facility] AST 42 10 - 50 U/L 12/30/2022 10:08 AM EDT [facility] Alkaline Phosphatase 274(H) 35 - 130 U/L 12/30/2022 10:08 AM EDT [facility] ALT 57(H) 10 - 50 U/L 12/30/2022 10:08 AM EDT [facility] Bilirubin, Total 0.8 <=1.2 mg/dL 12/30/2022 10:08 AM EDT LAB[facility] Bilirubin, Direct 0.2 0.0 - 0.3 mg/dL 12/30/2022 10:08 AM EDT [facility] Protein 6.2 6.0 - 8.3 g/dL 12/30/2022 10:08 AM EDT [facility] Blood Venous blood specimen / Unknown Venipuncture / Unknown 12/30/2022 8:54 AM EDT 12/30/2022 9:38 AM EDT uRpinder Otero MD LAB BLOOD ORDERABLES Performing Organization Address [facility] Co de Phone Number [facility]ORY [facility] [address] [place] [address] * (ABNORMAL) CBC (12/30/2022 8:54 AM EDT) WBC 18.55(H) 4.00 - 10.80 K/uL 12/30/2022 9:45 AM EDT LAB[facility] RBC 4.46 4.50 - 5.25 M/uL 12/30/2022 9:45 AM EDT [facility] HGB 13.5(L) 14.0 - 16.8 g/dL 12/30/2022 9:45 AM EDT LAB[facility] HCT 40.9 40.0 - 48.4 % 12/30/2022 9:45 AM EDT LAB[facility] MCV 91.7 82.0 - 99.5 fL 12/30/2022 9:45 AM EDT LAB[facility] MCH 30.3 27.0 - 34.0 pg 12/30/2022 9:45 AM EDT LABORATORY GM MCHC 33.0 32.0 - 36.0 g/dL 12/30/2022 9:45 AM EDT LABORATORY [facility] RDW 14.1 11.5 - 15.5 % 12/30/2022 9:45 AM EDT LABORATORY [facility] PLT 346 140 - 400 K/uL 12/30/2022 9:45 AM EDT LAB[facility] MPV 9.3 6.6 - 11.1 fL 12/30/2022 9:45 AM EDT LABORATORY [facility] nRBCs 0 <=0 /100 WBCs 12/30/2022 9:45 AM EDT LABORATORY [facility] Blood Venous blood specimen / Unknown Venipuncture / Unknown 12/30/2022 8:54 AM EDT 12/30/2022 9:38 AM EDT Kristyn Andersen McPhedran DO LAB BLO OD ORDERABLES LABORATORY [facility] [address] [place] [address] * (ABNORMAL) BASIC METABOLIC PANEL (12/30/2022 8:54 AM EDT) BUN 23(H) 6 - 20 mg/dL 12/30/2022 10:08 AM EDT LABORATORY GM Creatinine 1.3(H) 0.6 - 1.2 mg/dL 12/30/2022 10:08 AM EDT LAB[facility]ORY [facility] Estimated Glomerular Filtration Rate 60 >=60 mL/min 12/30/2022 10:08 AM EDT LAB[facility]ORY [facility] Comment:eGFR is calculated b ased on the CKD-EPI 2020 equation Sodium 138 135 - 146 mmol/L 12/30/2022 10:08 AM EDT LAB[facility]ATORY [facility] Potassium 3.7 3.5 - 5.1 mmol/L 12/30/2022 10:08 AM EDT LAB[facility] Chloride 100 98 - 107 mmol/L 12/30/2022 10:08 AM EDT LAB[facility] CO2 26 22 - 32 mmol/L 12/30/2022 10:08 AM EDT LAB[facility]ATORY [facility] Anion Gap 12 7 - 15 mmol/L 12/30/2022 10:08 AM EDT LABORATORY C Glucose 128(H) 70 - 120 mg/dL 12/30/2022 10:08 AM EDT LABORATORY C Calcium 9.5 8.4 - 10.2 mg/dL 12/30/2022 10:08 AM EDT LABORATORY [facility] Blood Venous blood specimen / Unknown Venipuncture / Unknown 12/30/2022 8:54 AM EDT 12/30/2022 9:38 AM EDT Kristyn Andersen McPhedran DO LAB BLO OD ORDERABLES LABORATORY [facility] [address] [place] [address] * (ABNORMAL) HEPATIC FUNCTION PANEL (12/29/2022 7:20 AM EDT) Albumin 3.5(L) 3.8 - 5.0 g/dL 12/29/2022 8:11 AM EDT LAB[facility] AST 51(H) 10 - 50 U/L 12/29/2022 8:11 AM EDT LAB[facility]ATORY [facility] Alkaline Phosphatase 289(H) 35 - 130 U/L 12/29/2022 8:11 AM EDT LAB[facility] ALT 67(H) 10 - 50 U/L 12/29/2022 8:11 AM EDT LAB[facility]ORY [facility] Bilirubin, Total 1.3(H) <=1.2 mg/dL 12/29/2022 8:11 AM EDT LAB[facility]ATORY [facility] Bilirubin, Direct 0.5(H) 0.0 - 0.3 mg/dL 12/29/2022 8:11 AM EDT LAB[facility] Protein 6.1 6.0 - 8.3 g/dL 12/29/2022 8:11 AM EDT LAB[facility]ORY [facility] Blood Venous blood specimen / Unknown Venipuncture / Unknown 12/29/2022 7:20 AM EDT 12/29/2022 7:40 AM EDT Rupinder Otero MD LAB BLOOD ORDERABLES [facility] [address] [place] [address] * (ABNORMAL) DIFFERENTIAL, AUTOMATED (12/29/2022 7:20 AM EDT) WBC 21.19(H) 4.00 - 10.80 K/uL 12/29/2022 7:48 AM EDT LAB[facility]ATORY [facility] Neutrophils % 34.3(L) 40.0 - 75.0 % 12/29/2022 7:48 AM EDT LAB[facility]ATORY [facility] Lymphocytes % 57.7(H) 18.0 - 42.0 % 12/29/2022 7:48 AM EDT LAB[facility]ORY [facility] Monocytes % 6.6 1.0 - 11.0 % 12/29/2022 7:48 AM EDT LAB[facility] Eosinophils % 0.6 0.0 - 6.0 % 12/29/2022 7:48 AM EDT LAB[facility]ORY [facility] Basophils % 0.4 0.0 - 2.0 % 12/29/2022 7:48 AM EDT LAB[facility]ATORY [facility] Immature Granulocytes % 0.4 0.0 - 2.0 % 12/29/2022 7:48 AM EDT LAB[facility]ORY [facility] Absolute Neutrophils 7.28 1.80 - 7.70 K/uL 12/29/2022 7:48 AM EDT LAB[facility]ATORY [facility] Absolute Lymphocytes 12.22(H) 1.00 - 4.80 K/ul 12/29/2022 7:48 AM EDT LAB[facility]ATORY [facility] Absolute Monocytes 1.40(H) 0.00 - 1.10 K/uL 12/29/2022 7:48 AM EDT LAB[facility]ATORY [facility] Absolute Eosinophils 0.13 0.00 - 0.70 K/uL 12/29/2022 7:48 AM EDT LAB[facility]ATORY [facility] Absolute Basophils 0.08 0.00 - 0.20 K/uL 12/29/2022 7:48 AM EDT LAB[facility]ATORY [facility] Absolute Immature Granulocytes 0.08 0.00 - 0.20 K/uL 12/29/2022 7:48 AM EDT LAB[facility] Blood Venous blood specimen / Unknown Venipuncture / Unknown 12/29/2022 7:20 AM EDT 12/29/2022 7:41 AM EDT Kristyn Andersen McPhedran DO LAB BLO OD ORDERABLES [facility] [address] [place] [address] * (ABNORMAL) CBC (12/29/2022 7:20 AM EDT) WBC 21.19(H) 4.00 - 10.80 K/uL 12/29/2022 7:48 AM EDT LAB[facility]ATORY [facility] RBC 4.69 4.50 - 5.25 M/uL 12/29/2022 7:48 AM EDT LAB[facility]ORY [facility] HGB 13.9(L) 14.0 - 16.8 g/dL 12/29/2022 7:48 AM EDT LAB[facility] HCT 42.9 40.0 - 48.4 % 12/29/2022 7:48 AM EDT LAB[facility]ORY [facility] MCV 91.5 82.0 - 99.5 fL 12/29/2022 7:48 AM EDT LAB[facility]ORY [facility] MCH 29.6 27.0 - 34.0 pg 12/29/2022 7:48 AM EDT LAB[facility]ORY [facility] MCHC 32.4 32.0 - 36.0 g/dL 12/29/2022 7:48 AM EDT LAB[facility]ATORY [facility] RDW 14.3 11.5 - 15.5 % 12/29/2022 7:48 AM EDT LAB[facility]ATORY [facility] PLT 332 140 - 400 K/uL 12/29/2022 7:48 AM EDT LAB[facility]ATORY [facility] MPV 9.3 6.6 - 11.1 fL 12/29/2022 7:48 AM EDT LABORATORY [facility] nRBCs 0 <=0 /100 WBCs 12/29/2022 7:48 AM EDT LAB[facility] Blood Venous blood specimen / Unknown Venipuncture / Unknown 12/29/2022 7:20 AM EDT 12/29/2022 7:41 AM EDT Kristyn Sanz Ganesh McPhedran DO LAB BLO OD ORDERABLES LABORATORY [facility] [address] [place] [address] * (ABNORMAL) BASIC METABOLIC PANEL (12/29/2022 7:20 AM EDT) BUN 24(H) 6 - 20 mg/dL 12/29/2022 8:11 AM EDT LAB[facility]ATORY [facility] Creatinine 1.4(H) 0.6 - 1.2 mg/dL 12/29/2022 8:11 AM EDT LABORATORY [facility] Estimated Glomerular Filtration Rate 52(L) >=60 mL/min 12/29/2022 8:11 AM EDT LABORATORY C Comment:eGFR is calculated b ased on the CKD-EPI 2020 equation Sodium 137 135 - 146 mmol/L 12/29/2022 8:11 AM EDT LABORATORY C Potassium 4.1 3.5 - 5.1 mmol/L 12/29/2022 8:11 AM EDT LABORATORY C Chloride 102 98 - 107 mmol/L 12/29/2022 8:11 AM EDT LAB[facility] CO2 24 22 - 32 mmol/L 12/29/2022 8:11 AM EDT LAB[facility] Anion Gap 11 7 - 15 mmol/L 12/29/2022 8:11 AM EDT LAB[facility]ATORY [facility] Glucose 116 70 - 120 mg/dL 12/29/2022 8:11 AM EDT LAB[facility]ATORY [facility] Calcium 9.3 8.4 - 10.2 mg/dL 12/29/2022 8:11 AM EDT LABORATORY [facility] Blood Venous blood specimen / Unknown Venipuncture / Unknown 12/29/2022 7:20 AM EDT 12/29/2022 7:40 AM EDT Kristyn Sanz Ganesh Gonzalez DO LAB BLO OD ORDERABLES LABORATORY [facility] [address] [place] [address] * VANCOMYCIN RANDOM (12/29/2022 7:20 AM EDT) Vancomycin Random 22.0 10.0 - 40.0 ug/mL 12/29/2022 8:11 AM EDT LAB[facility] Blood Venous blood specimen / Unknown Venipuncture / Unknown 12/29/2022 7:20 AM EDT 12/29/2022 7:40 AM EDT Isreal Gallagher MD LAB BLOOD ORDERA BLES Performing Organization Address City/[facility]/ZIP Co de Phone Number LABORATORY [facility] [address] [place] [address] * (ABNORMAL) DIFFERENTIAL, TECHNOLOGIST REVIEW (12/28/2022 9:18 AM EDT) WBC 19.98(H) 4.00 - 10.80 K/uL 12/28/2022 12:29 PM EDT LAB[facility]ATORY [facility] Neutrophils % 49.0 40.0 - 75.0 % 12/28/2022 12:29 PM EDT LAB[facility]ATORY [facility] Lymphocytes % 43.0(H) 18.0 - 42.0 % 12/28/2022 12:29 PM EDT LAB[facility]ATORY [facility] Monocytes % 7.0 1.0 - 11.0 % 12/28/2022 12:29 PM EDT LAB[facility]ATORY [facility] Eosinophils % 1.0 0.0 - 6.0 % 12/28/2022 12:29 PM EDT LAB[facility]ATORY [facility] Absolute Neutrophils 9.79(H) 1.80 - 7.70 K/uL 12/28/2022 12:29 PM EDT LAB[facility]ATORY [facility] Absolute Lymphocytes 8.59(H) 1.00 - 4.80 K/uL 12/28/2022 12:29 PM EDT LAB[facility]ATORY [facility] Absolute Monocytes 1.40(H) 0.00 - 1.10 K/uL 12/28/2022 12:29 PM EDT LABORATORY [facility] Absolute Eosinophils 0.20 0.00 - 0.70 K/uL 12/28/2022 12:29 PM EDT LAB[facility]ATORY [facility] Reactive Lymphocytes Present(A ) None Seen 12/28/2022 12:29 PM EDT LAB[facility]ATORY [facility] Blood Venous blood specimen / Unknown Venipuncture / Unknown 12/28/2022 9:18 AM EDT 12/28/2022 9:39 AM EDT [facility] LAB BLO OD ORDERABLES Performing Organization Address [facility] Co de Phone Number LAB[facility]ATORY [facility] [address] [place] [address] * DIFFERENTIAL, AUTOMATED (12/28/2022 9:18 AM EDT) Blood Venous blood specimen / Unknown Venipuncture / Unknown 12/28/2022 9:18 AM EDT 12/28/2022 9:39 AM EDT [facility] [place] [facility] LAB BLO OD ORDERABLES Performing Organization Address [facility] Co de Phone Number LAB[facility]ATORY [facility] [address] [place] [address] * (ABNORMAL) CBC (12/28/2022 9:18 AM EDT) WBC 19.98(H) 4.00 - 10.80 K/uL 12/28/2022 10:12 AM EDT LAB[facility]ATORY [facility] RBC 4.66 4.50 - 5.25 M/uL 12/28/2022 10:12 AM EDT LAB[facility]ATORY [facility] HGB 13.9(L) 14.0 - 16.8 g/dL 12/28/2022 10:12 AM EDT LAB[facility]ATORY [facility] HCT 43.0 40.0 - 48.4 % 12/28/2022 10:12 AM EDT LAB[facility]ATORY [facility] MCV 92.3 82.0 - 99.5 fL 12/28/2022 10:12 AM EDT LAB[facility]ATORY [facility] MCH 29.8 27.0 - 34.0 pg 12/28/2022 10:12 AM EDT LAB[facility]ATORY [facility] MCHC 32.3 32.0 - 36.0 g/dL 12/28/2022 10:12 AM EDT LABORATORY [facility] RDW 14.3 11.5 - 15.5 % 12/28/2022 10:12 AM EDT LABORATORY [facility] PLT 318 140 - 400 K/uL 12/28/2022 10:12 AM EDT LABORATORY [facility] MPV 9.1 6.6 - 11.1 fL 12/28/2022 10:12 AM EDT LABORATORY [facility] nRBCs 0 <=0 /100 WBCs 12/28/2022 10:12 AM EDT LABORATORY [facility] Blood Venous blood specimen / Unknown Venipuncture / Unknown 12/28/2022 9:18 AM EDT 12/28/2022 9:39 AM EDT Kristyn Andersen McPhedran DO LAB BLO OD ORDERABLES LABORATORY [facility] [address] [place] [address] * BASIC METABOLIC PANEL (12/28/2022 9:18 AM EDT) BUN 19 6 - 20 mg/dL 12/28/2022 10:28 AM EDT LABORATORY [facility] Creatinine 1.1 0.6 - 1.2 mg/dL 12/28/2022 10:28 AM EDT LABORATORY [facility] Estimated Glomerular Filtration Rate 70 >=60 mL/min 12/28/2022 10:28 AM EDT LABORATORY [facility] Comment:eGFR is calculated b ased on the CKD-EPI 2020 equation Sodium 137 135 - 146 mmol/L 12/28/2022 10:28 AM EDT LABORATORY C Potassium 4.4 3.5 - 5.1 mmol/L 12/28/2022 10:28 AM EDT LABORATORY C Chloride 102 98 - 107 mmol/L 12/28/2022 10:28 AM EDT LABORATORY C CO2 24 22 - 32 mmol/L 12/28/2022 10:28 AM EDT LABORATORY [facility] Anion Gap 11 7 - 15 mmol/L 12/28/2022 10:28 AM EDT LABORATORY [facility] Glucose 120 70 - 120 mg/dL 12/28/2022 10:28 AM EDT LAB[facility]ATORY [facility] Calcium 9.0 8.4 - 10.2 mg/dL 12/28/2022 10:28 AM EDT LABORATORY [facility] Blood Venous blood specimen / Unknown Venipuncture / Unknown 12/28/2022 9:18 AM EDT 12/28/2022 9:39 AM EDT Kristyn Sanz Ganesh Gonzalez DO LAB BLO OD ORDERABLES Performing Organization Address [facility] de Phone Number LABORATORY [facility] [address] [place] [address] * ABO/RH (12/27/2022 10:29 AM EDT) ABO A 12/27/2022 11:43 AM EDT LABORATORY [facility] BLOOD BANK Rh Positive 12/27/2022 11:43 AM EDT LABORATORY [facility] BLOOD BANK Blood Venous blood specimen / Unknown Venipuncture / Unknown 12/27/2022 10:29 AM EDT 12/27/2022 10:38 AM EDT Sameer Owens DO LAB BLOOD BAN K TEST ORDERABLES Performing Organization Address [facility] de Phone Number LABORATORY [facility] BLOOD BANK [address] [place] [address] * TYPE AND SCREEN (12/27/2022 10:29 AM EDT) ABO A 12/27/2022 11:25 AM EDT LABORATORY [facility] BLOOD BANK Rh Positive 12/27/2022 11:25 AM EDT LABORATORY [facility] BLOOD BANK Red Blood Cell Antibody Screen Negative 12/27/2022 11:25 AM EDT LABORATORY [facility] BLOOD BANK Specimen Expiration Date 12/30/2022 23:59 12/27/2022 11:25 AM EDT LABORATORY [facility] BLOOD BANK Blood Venous blood specimen / Unknown Venipuncture / Unknown 12/27/2022 10:29 AM EDT 12/27/2022 10:38 AM EDT Sameer Owens DO LAB BLOOD BAN K TEST ORDERABLES Performing Organization Address [facility]/ZIP Co de Phone Number LABORATORY [facility] BLOOD BANK [address] [place], [place] [id number] * CULTURE, BLOOD (12/27/2022 10:29 AM EDT) [facility] Blood Culture Growth No growth 01/01/2023 11:01 AM EDT LABORATORY [facility] Blood Venous blood specimen / Unknown Venipuncture / Unknown 12/27/2022 10:29 AM EDT 12/27/2022 10:42 AM EDT Sameer Owens DO LAB MICRO - G ENERAL ORDERABLES Performing Organization Address [facility] de Phone Number LABORATORY [facility] [address] [place] [address] * (ABNORMAL) DIFFERENTIAL, TECHNOLOGIST REVIEW (12/27/2022 10:26 AM EDT) [facility] WBC 25.46(H) 4.00 - 10.80 K/uL 12/27/2022 11:56 AM EDT LABORATORY [facility] Neutrophils % 32.0(L) 40.0 - 75.0 % 12/27/2022 11:56 AM EDT LABORATORY [facility] Lymphocytes % 68.0(H) 18.0 - 42.0 % 12/27/2022 11:56 AM EDT LABORATORY [facility] Absolute Neutrophils 8.15(H) 1.80 - 7.70 K/uL 12/27/2022 11:56 AM EDT LABORATORY [facility] Absolute Lymphocytes 17.31(H) 1.00 - 4.80 K/uL 12/27/2022 11:56 AM EDT LABORATORY [facility] Reactive Lymphocytes Present(A ) None Seen 12/27/2022 11:56 AM EDT LABORATORY [facility] Blood Venous blood specimen / Unknown Venipuncture / Unknown 12/27/2022 10:26 AM EDT 12/27/2022 10:37 AM EDT Sameer Owens DO LAB BLOOD ORD ERABLES Performing Organization Address [facility] Co de Phone Number LABORATORY [facility] [address] [place] [address] * DIFFERENTIAL, AUTOMATED (12/27/2022 10:26 AM EDT) Blood Venous blood specimen / Unknown Venipuncture / Unknown 12/27/2022 10:26 AM EDT 12/27/2022 10:37 AM EDT Sameer Owens DO LAB BLOOD ORD ERABLES LAB[facility]ATORY [facility] [address] [place] [address] * (ABNORMAL) CBC (12/27/2022 10:26 AM EDT) WBC 25.46(H) 4.00 - 10.80 K/uL 12/27/2022 10:49 AM EDT LABORATORY [facility] RBC 5.12 4.50 - 5.25 M/uL 12/27/2022 10:49 AM EDT LABORATORY [facility] HGB 15.6 14.0 - 16.8 g/dL 12/27/2022 10:49 AM EDT LABORATORY [facility] HCT 47.1 40.0 - 48.4 % 12/27/2022 10:49 AM EDT LABORATORY [facility] MCV 92.0 82.0 - 99.5 fL 12/27/2022 10:49 AM EDT LABORATORY [facility] MCH 30.5 27.0 - 34.0 pg 12/27/2022 10:49 AM EDT LABORATORY [facility] MCHC 33.1 32.0 - 36.0 g/dL 12/27/2022 10:49 AM EDT LABORATORY [facility] RDW 14.0 11.5 - 15.5 % 12/27/2022 10:49 AM EDT LABORATORY [facility] PLT 335 140 - 400 K/uL 12/27/2022 10:49 AM EDT LABORATORY [facility] MPV 9.2 6.6 - 11.1 fL 12/27/2022 10:49 AM EDT LABORATORY [facility] nRBCs 0 <=0 /100 WBCs 12/27/2022 10:49 AM EDT LABORATORY [facility] Blood Venous blood specimen / Unknown Venipuncture / Unknown 12/27/2022 10:26 AM EDT 12/27/2022 10:37 AM EDT Sameer Royce Graciela DO LAB BLOOD ORD ERABLES Performing Organization Address [facility]/ZIP Co de Phone Number LABORATORY [facility] [address] [place] [address] * CULTURE, BLOOD (12/27/2022 10:26 AM EDT) Pathologist [facility] Blood Culture Growth No growth 01/01/2023 11:01 AM EDT LABORATORY [facility] Blood Venous blood specimen / Unknown Venipuncture / Unknown 12/27/2022 10:26 AM EDT 12/27/2022 10:42 AM EDT Sameer Owens DO LAB MICRO - G ENERAL ORDERABLES Performing Organization Address [facility] Co de Phone Number LABORATORY [facility] [address] [place] [address] * EXTRA LIGHT BLUE TOP (12/27/2022 10:26 AM EDT) Blood Venous blood specimen / Unknown Venipuncture / Unknown 12/27/2022 10:26 AM EDT 12/27/2022 10:38 AM EDT Sameer Owens DO LAB BLOOD ORD ERABLES Performing Organization Address [facility] Co de Phone Number LABORATORY [facility] [address] [place] [address] * (ABNORMAL) CRP (INFLAMMATORY MARKER) (12/27/2022 10:26 AM EDT) [facility] CRP (Inflammatory Marker) 21(H) <=5 mg/L 12/27/2022 11:06 AM EDT LABORATORY [facility] Blood Venous blood specimen / Unknown Venipuncture / Unknown 12/27/2022 10:26 AM EDT 12/27/2022 10:37 AM EDT Sameer Owens DO LAB BLOOD ORD ERABLES Performing Organization Address City/[facility]/ZIP Co de Phone Number LABORATORY [facility] [address] [place] [address] * PROCALCITONIN (12/27/2022 10:26 AM EDT) Procalcitonin 0.08 <0.10 ng/mL 12/27/2022 11:06 AM EDT LABORATORY [facility] Blood Venous blood specimen / Unknown Venipuncture / Unknown 12/27/2022 10:26 AM EDT 12/27/2022 10:37 AM EDT Narrative LABORATORY [facility] - 12/27/2022 11:06 AM EDT Less than 0.5 ng/mL: Low risk for progression to sepsis. Review patients condition for localized infections. 0.5 to 2.0 ng/mL: Intermediate risk for progresion to sepsis. Review underlying conditions. Recommend repeat PCT after 6 hours has elapsed. Greater than 2.0 ng/mL: high risk for progression to sepsis unless other causes are known. Sameer Owens DO LAB BLOOD ORD ERABLES Performing Organization Address City/[facility] Co de Phone Number LABORATORY [facility] [address] [place] [address] * (ABNORMAL) LACTATE (12/27/2022 10:26 AM EDT) Pathologist [facility] Lactate 2.3(H) 0.4 - 2.0 mmol/L 12/27/2022 10:58 AM EDT LABORATORY [facility] Blood Venous blood specimen / Unknown Venipuncture / Unknown 12/27/2022 10:26 AM EDT 12/27/2022 10:37 AM EDT Sameer Owens DO LAB BLOOD ORD ERABLES Performing Organization Address [facility] Co de Phone Number LABORATORY [facility] [address] [place] [address] * (ABNORMAL) COMPREHENSIVE METABOLIC PANEL (12/27/2022 10:26 AM EDT) Pathologist [facility] BUN 21(H) 6 - 20 mg/dL 12/27/2022 11:06 AM EDT LABORATORY [facility] Creatinine 1.0 0.6 - 1.2 mg/dL 12/27/2022 11:06 AM EDT LABORATORY [facility] Estimated Glomerular Filtration Rate 84 >=60 mL/min 12/27/2022 11:06 AM EDT LABORATORY [facility] Comment:eGFR is calculated b ased on the CKD-EPI 2020 equation Sodium 135 135 - 146 mmol/L 12/27/2022 11:06 AM EDT LABORATORY [facility] Potassium 4.2 3.5 - 5.1 mmol/L 12/27/2022 11:06 AM EDT LABORATORY [facility] Chloride 100 98 - 107 mmol/L 12/27/2022 11:06 AM EDT LABORATORY [facility] CO2 23 22 - 32 mmol/L 12/27/2022 11:06 AM EDT LABORATORY [facility] Anion Gap 12 7 - 15 mmol/L 12/27/2022 11:06 AM EDT LABORATORY [facility] Glucose 136(H) 70 - 120 mg/dL 12/27/2022 11:06 AM EDT LABORATORY [facility] Albumin 4.0 3.8 - 5.0 g/dL 12/27/2022 11:06 AM EDT LABORATORY [facility] AST 49 10 - 50 U/L 12/27/2022 11:06 AM EDT LABORATORY [facility] Alkaline Phosphatase 312(H) 35 - 130 U/L 12/27/2022 11:06 AM EDT LABORATORY [facility] Bilirubin, Total 0.8 <=1.2 mg/dL 12/27/2022 11:06 AM EDT LABORATORY [facility] Calcium 9.6 8.4 - 10.2 mg/dL 12/27/2022 11:06 AM EDT LABORATORY [facility] Protein 6.9 6.0 - 8.3 g/dL 12/27/2022 11:06 AM EDT LABORATORY C ALT 71(H) 10 - 50 U/L 12/27/2022 11:06 AM EDT LABORATORY C Blood Venous blood specimen / Unknown Venipuncture / Unknown 12/27/2022 10:26 AM EDT 12/27/2022 10:37 AM EDT Sameer Owens DO LAB BLOOD ORD ERABLES LABORATORY C [address] [place] [address] documented in this encounter Visit Diagnoses Diagnosis Liver mass- Primary Unspecified disorder of liver Intra-abdominal abscess (HCC) Peritoneal abscess Chest pain Chest pain, unspecified Localized edema Edema KARISSA (acute kidney injury) (HCC) Acute kidney failure, unspecified Therapeutic drug monitoring Encounter for therapeutic drug monitoring Dyslipidemia, goal LDL below 100 Other and unspecified hyperlipidemia COPD, mild (HCC) Chronic airway obstruction, not elsewhere classified PAF (paroxysmal atrial fibrillation) (HCC) Atrial fibrillation HTN, goal below 150/90 Essential tremor Essential and other specified forms of tremor 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) Chronic lymphoid leukemia, without mention of having achieved remission KARISSA (acute kidney injury) (HCC) Acute kidney failure, unspecified Transaminitis Nonspecific elevation of levels of transaminase or lactic acid dehydrogenase (LDH) documented in this encounter Administered Medications Inactive Administered Medications - up to 3 most recent administrations Medication Order MAR Action Action Date Dose Rate Site Acetaminophen (Tylenol) tab 650 mg 650 mg, Oral, Q6H PRN Pain, Mild, Pain, Moderate, Starting on 12/29/22 at 1127, Until Sat01/01/23 at 2033, Maximum of 4 grams (4000 mg) per day. albuterol (VENTOLIN HFA/PROVENTIL HFA) inhaler 2 Puff, Inhalation, Q4H PRN Dyspnea, Starting on Sat12/30/22 at 0824, Until Sat01/01/23 at 2033, Shake can for 10 seconds before each puff SEND INHALER WITH PATIENT! WASTE INFO ( IF NOT SENT HOME WITH PATIENT) : Return unused medication to pharmacy in zip lock bag for disposal into black container labeled SP. Albuterol Sulfate (Proventil) (2.5 MG/3ML) 0.083% inhalation solution 2.5 mg 2.5 mg, Nebulizer, ONCE, On Sat12/30/22 at 0900, For 1 dose Given 12/30/2022 8:59 AM EDT 2.5 mg Albuterol Sulfate (Proventil) (2.5 MG/3ML) 0.083% inhalation solution 2.5 mg 2.5 mg, Nebulizer, BID (), First dose on Sat12/30/22 at 1999, Until Discontinued Given 01/01/2023 7:17 AM EDT 2.5 mg Given 12/31/2022 8:20 PM EDT 2.5 mg Given 12/31/2022 7:33 AM EDT 2.5 mg albuterol-ipratropium (Duoneb) inhalation solution 3 mL 3 mL, Nebulizer, ONCE, On Sat12/27/22 at 1515, For 1 dose, 3 mL = 0.5 mg ipratropium/ 2.5 mg albuterol Given 12/27/2022 2:46 PM EDT 3 mL albuterol-ipratropium (Duoneb) inhalation solution 3 mL 3 mL, Nebulizer, ONCE, On Sat12/28/22 at 1930, For 1 dose, 3 mL = 0.5 mg ipratropium/ 2.5 mg albuterol Given 12/28/2022 8:23 PM EDT 3 mL Apixaban (Eliquis) tab 5 mg 5 mg, Oral, BID(AM/PM), First dose on Sat12/29/22 at 2100, Until Discontinued Given 12/29/2022 9:01 PM EDT 5 mg aspirin enteric coated tab 81 mg 81 mg, Oral, Daily(AM), First dose on Sat12/28/22 at 0900, Until Discontinued, This med should NOT be Crushed or Chewed Given 01/01/2023 8:44 AM EDT 81 mg Given 12/31/2022 11:11 AM EDT 81 mg Given 12/30/2022 9:02 AM EDT 81 mg atorvaSTATin (Lipitor) tab 20 mg 20 mg, Oral, Daily(AM), First dose on Sat12/28/22 at 0900, Until Discontinued Given 01/01/2023 8:44 AM EDT 20 mg Given 12/31/2022 11:12 AM EDT 20 mg Given 12/30/2022 9:02 AM EDT 20 mg buffered lidocaine 1 % inj Intradermal, ONCE PRN INTRA PROCEDURE, Starting on Sat12/28/22 at 1622, Until Sat12/28/22 at 1622, Intra-Op Given 12/28/2022 4:22 PM EDT 20 mL Abdomen Right Upper cefTRIAXone in dextrose (Rocephin) IVPB 1 g IV Piggyback, 1 g, Q24H, 5 doses, First dose on Sat12/29/22 at 1200, Last dose on Sat01/02/23 at 1200, Administer over 30 Minutes New Bag 01/01/2023 11:53 AM EDT 1 g 100 mL/hr New Bag 12/31/2022 11:50 AM EDT 1 g 100 mL/hr Start Infusion 12/30/2022 12:28 PM EDT 1 g 100 mL/h r dilTIAZem (Cardizem CD) extended release cap 120 mg 120 mg, Oral, Daily(AM), First dose on Sat12/28/22 at 0900, Until Discontinued, Hold for HR less than 60 or SBP below 100 and notify service if dose is held Do NOT open, chew or crush capsules Given 01/01/2023 8:43 AM EDT 120 mg Given 12/31/2022 11:12 AM EDT 120 mg Given 12/30/2022 9:03 AM EDT 120 mg fentaNYL (PF) inj ONCE PRN INTRA PROCEDURE, Starting on Sat12/28/22 at 1512, Until Sat12/28/22 at 1551, Intra-Op Given 12/28/2022 3:51 PM EDT 50 mcg Given 12/28/2022 3:30 PM EDT 50 mcg Given 12/28/2022 3:12 PM EDT 50 mcg Dkzxnldttrk-Piulwvqtpnxr-Ydszrvubhl (Trelegy Ellipta) 100-62.5-25 MCG/ACT inhaler 1 Puff 1 Puff, Inhalation, Daily(AM), First dose on Sat12/28/22 at 0900, Until Discontinued, NURSING TO FOLLOW PATIENT WITH MDI/DPI ADMINISTRATION Given 01/01/2023 8:43 AM EDT 1 Puff Given 12/31/2022 11:11 AM EDT 1 Puff Given 12/30/2022 9:02 AM EDT 1 Puff Furosemide (Lasix) tab 20 mg 20 mg, Oral, Daily(AM), First dose on Sat12/28/22 at 0900, Until Discontinued Given 01/01/2023 8:44 AM EDT 20 mg Given 12/31/2022 11:12 AM EDT 20 mg Given 12/30/2022 9:02 AM EDT 20 mg hEParin inj 5,000 Units 5,000 Units, Subcutaneous, Q8H, First dose on Sat12/28/22 at 2200, Until Discontinued Given 12/29/2022 5:34 AM EDT 5,000 Units Abdomen Left Lower Given 12/28/2022 9:35 PM EDT 5,000 Units A bdomen Right Upper Metoprolol Tartrate (Lopressor) tab 50 mg 50 mg, Oral, BID(AM/PM), First dose on Tran 12/27/22 at 2100, Until Discontinued, Hold for HR less than 60 or SBP below 100 and notify service if dose is held Given 01/01/2023 8:44 AM EDT 50 mg Given 12/31/2022 8:46 PM EDT 50 mg Given 12/31/2022 11:12 AM EDT 50 mg metroNIDAZOLE (Flagyl) tab 500 mg 500 mg, Oral, Q8H, First dose on 12/29/22 at 1400, Until Discontinued Given 01/01/2023 2:33 PM EDT 500 mg Given 01/01/2023 5:46 AM EDT 500 mg Given 12/31/2022 8:46 PM EDT 500 mg midazolam (Versed) 2 MG/2ML inj ONCE PRN INTRA PROCEDURE, Starting on Sat12/28/22 at 1512, Until Sat12/28/22 at 1551, Intra-Op Given 12/28/2022 3:51 PM EDT 1 mg Given 12/28/2022 3:30 PM EDT 1 mg Given 12/28/2022 3:12 PM EDT 1 mg morphine sulfate inj 2 mg 2 mg, IV Push, Q6H PRN Pain, Severe, Starting on Tran 12/27/22 at 1710, Until 12/29/22 at 1128 Given 12/29/2022 8 :10 AM EDT 2 mg Given 12/29/2022 1:15 AM EDT 2 mg Given 12/28/2022 7:10 PM EDT 2 mg morphine sulfate inj 4.38 mg 4.38 mg (rounded from 4.372 mg = 0.04 mg/kg 109.3 kg), IV Push, ONCE, On Sat12/31/22 at 1030, For 1 dose, Given in nuclear medicine, Radiology Medication Routing (Non-IR) Given 12/31/2022 10:04 AM EDT 4.38 mg NSS infusion Intravenous, at 100 mL/hr, CONTINUOUS, Starting on Sat01/01/23 at 1200, Until Sat01/01/23 at 1301 New Bag 01/01/2023 12:00 PM EDT 100 mL/hr Piperacillin-Tazobactam (Zosyn) 4.5 g in 100 mL NSS ivpb (FOUR hour infusion) IV Piggyback, 4.5 g, Q8HNOW, 15 doses, First dose on Sat12/27/22 at 1715, Last dose on Sat01/01/23 at 0915, Administer over 4 Hours, at 25 mL/hr Start Infusion 12/29/2022 9:03 AM EDT 4.5 g 25 mL/hr Start Infusion 12/29/2022 1:18 AM EDT 4.5 g 25 mL/hr New Bag 12/28/2022 4:40 PM EDT 4.5 g 25 mL/hr Piperacillin-Tazobactam (Zosyn) 4.5 g in 100 mL NSS ivpb (HALF hour infusion) IV Piggyback, 4.5 g, ONCE, 1 dose, On Sat12/27/22 at 1245, Administer over 30 Minutes New Bag 12/27/2022 12:23 PM EDT 4.5 g 200 mL/hr sodium chloride 0.9 % flush/inj 10 mL 10 mL, IV Push, ONCE, On Sat12/31/22 at 0915, For 1 dose, Do not flush if lock, PICC, or central line not in place; IV infusing or unable to flush., Radiology Medication Routing (Non-IR) Given 12/31/2022 8:36 AM EDT 10 mL sodium chloride 0.9 % flush/inj 3 mL 3 mL, IV Push, PRN Other, Line Patency, Starting on Sat12/27/22 at 1539, Until Sat01/01/23 at 2034, Do not flush if lock, PICC, or central line not in place, IV infusing or unable to flush Technetium Tc 99m Mebrofenin (Choletec) inj 5 millicurie 5 millicurie, Intravenous, ONCE, On Sat12/31/22 at 0915, For 1 dose, Radiology Medication Routing (Non-IR) Given 12/31/2022 8:36 AM EDT 5.6 millicuries traMADol (Ultram) tab 25 mg 25 mg, Oral, Q6H PRN Pain, Severe, Starting on 12/29/22 at 1127, Until 01/01/23 at 2034 Given 12/30/2022 10:49 PM EDT 25 mg Given 12/30/2022 12:27 PM EDT 25 mg Given 12/29/2022 9:01 PM EDT 25 mg vancomycin (Vancocin) 1,500 mg in NSS 250 mL ivpb 1,500 mg, IV Piggyback, [id number], First dose (after last reorder) on Sat12/28/22 at 0700, Until Discontinued Start Infusion 12/28/2022 11:52 PM EDT 1,500 mg 183.33 mL/hr Start Infusion 12/28/2022 6:07 AM EDT 1,500 mg 183.33 mL /hr vancomycin (Vancocin) 2,750 mg in NSS 500 mL ivpb 2,750 mg, IV Piggyback, ONCE, 1 dose, On Tran 12/27/22 at 1245 New Bag 12/27/2022 1:13 PM EDT 2,750 mg 183.33 mL/hr documented in this encounter Active and Recently Administered Medications Times are shown in EDT. Scheduled Medication Order 12/30/2022 12/31/2022 01/01/2023 Albuterol Sulfate (Proventil) (2.5 MG/3ML) 0.083% inhalation solution 2.5 mg (COMPLETED) 2.5 mg, Nebulizer, ONCE, On Sat12/30/22 at 0900, For 1 dose 0859 (Given - Provider: Constance Campos, VELMA) Albuterol Sulfate (Proventil) (2.5 MG/3ML) 0.083% inhalation solution 2.5 mg 2.5 mg, Nebulizer, BID (), First dose on Sat12/30/22 at 1999, Until Discontinued 1944 (Given - Provider: Aster Chamorro RRT-FINANCIAL PLANNING ADVISOR) 732 (Given - Provider: Latanya Davis, DIRECTOR OPERATING ROOM)2019 (Given - Provider: Rossy Raman, DIRECTOR OPERATING ROOM) 07 (Given - Provider: Alejandra Davies, RIPRAP MAN) aspirin enteric coated tab 81 mg 81 mg, Oral, Daily(AM), First dose on Sat12/28/22 at 0900, Until Discontinued, This med should NOT be Crushed or Chewed 901 (Given - Provider: Charlotte Koroma RN) 1111 (Given - Provider: Amberly Mccabe RN) 0844 (Given - Provider: Letty Church, LAMAR) atorvaSTATin (Lipitor) tab 20 mg 20 mg, Oral, Daily(AM), First dose on Sat12/28/22 at 0900, Until Discontinued 901 (Given - Provider: Charlotte Koroma RN) 111 (Given - Provider: Amberly Mccabe RN) 0844 (Given - Provider: Letty Church RN) cefTRIAXone in dextrose (Rocephin) IVPB 1 g IV Piggyback, 1 g, Q24H, 5 doses, First dose on Sat12/29/22 at 1200, Last dose on Sat01/02/23 at 1200, Administer over 30 Minutes 1228 (Start Infusion - Provider: Charlotte Koroma RN)1258 (Finish Infusion - Provider: Charlotte Koroma RN) 1150 (New Bag - Provider: Amberly Mccabe RN) 1153 (New Bag - Provider: Letty Church RN) dilTIAZem (Cardizem CD) extended release cap 120 mg 120 mg, Oral, Daily(AM), First dose on Sat12/28/22 at 0900, Until Discontinued, Hold for HR less than 60 or SBP below 100 and notify service if dose is held Do NOT open, chew or crush capsules 09 (Given - Provider: Charlotte Koroma RN) 111 (Given - Provider: Amberly Mccabe RN) 0843 (Given - Provider: Letty Church RN) Fluticasone-Umeclidinium- Vilanterol (Trelegy Ellipta) 100-62.5-25 MCG/ACT inhaler 1 Puff 1 Puff, Inhalation, Daily(AM), First dose on Sat12/28/22 at 0900, Until Discontinued, NURSING TO FOLLOW PATIENT WITH MDI/DPI ADMINISTRATION 901 (Given - Provider: Charlotte Koroma RN) 1111 (Given - Provider: Amberly Mccabe RN) 0843 (Given - Provider: Letty Church RN) Furosemide (Lasix) tab 20 mg 20 mg, Oral, Daily(AM), First dose on Sat12/28/22 at 0900, Until Discontinued 0902 (Given - Provider: Charlotte Koroma, LAMAR) 111 (Given - Provider: Amberly Mccabe, LAMAR) 0844 (Given - Provider: Letty Church RN) Metoprolol Tartrate (Lopressor) tab 50 mg 50 mg, Oral, BID(AM/PM), First dose on Tran 12/27/22 at 2100, Until Discontinued, Hold for HR less than 60 or SBP below 100 and notify service if dose is held 09 (Given - Provider: Charlotte Koroma, LAMAR)211 (Given - Provider: Forrest Wright, LAMAR) 111 (Given - Provider: Amberly Mccabe, LAMAR)204 (Given - Provider: Filomena Reina, LAMAR) 0844 (Given - Provider: Letty Church RN) metroNIDAZOLE (Flagyl) tab 500 mg 500 mg, Oral, Q8H, First dose on Sat12/29/22 at 1400, Until Discontinued 06 (Given - Provider: Forrest Wright RN)1430 (Given - Provider: Charlotte Koroma RN)211 (Given - Provider: Forrest Wright, LAMAR) 0548 (Given - Provider: Filomena Reina, LAMAR)134 (Given - Provider: Amberly Mccabe RN)204 (Given - Provider: Filomena Reina, LAMAR) 0546 (Given - Provider: Filomena Reina, LAMAR)1433 (Given - Provider: Letty Church RN) morphine sulfate inj 4.38 mg (COMPLETED) 4.38 mg (rounded from 4.372 mg = 0.04 mg/kg 109.3 kg), IV Push, ONCE, On Sat12/31/22 at 1030, For 1 dose, Given in nuclear medicine, Radiology Medication Routing (Non-IR) 1004 (Given - Provider: Julia Gonzalez RN) sodium chloride 0.9 % flush/inj 10 mL (COMPLETED) 10 mL, IV Push, ONCE, On Sat12/31/22 at 0915, For 1 dose, Do not flush if lock, PICC, or central line not in place; IV infusing or unable to flush., Radiology Medication Routing (Non-IR) 0836 (Given - Provider: MONICA Rodriguez) Technetium Tc 99m Mebrofenin (Choletec) inj 5 millicurie (COMPLETED) 5 millicurie, Intravenous, ONCE, On 12/31/22 at 0915, For 1 dose, Radiology Medication Routing (Non-IR) 0836 (Given - Provider: MONICA Rodriguez) Continuous Medication Order 12/30/2022 12/31/2022 01/01/2023 NSS infusion (CANCELED) Intravenous, at 100 mL/hr, CONTINUOUS, Starting on Sat01/01/23 at 1200, Until Sat01/01/23 at 1301 1200 (New Bag - Prov ider: Letty Church RN) PRN Medication Order 12/30/2022 12/31/2022 01/01/2023 Acetaminophen (Tylenol) tab 650 mg 650 mg, Oral, Q6H PRN Pain, Mild, Pain, Moderate, Starting on 12/29/22 at 1127, Until Sat01/01/23 at 2033, Maximum of 4 grams (4000 mg) per day. albuterol (VENTOLIN HFA/PROVENTIL HFA) inhaler 2 Puff, Inhalation, Q4H PRN Dyspnea, Starting on 12/30/22 at 0824, Until Sat01/01/23 at 2033, Shake can for 10 seconds before each puff SEND INHALER WITH PATIENT! WASTE INFO ( IF NOT SENT HOME WITH PATIENT) : Return unused medication to pharmacy in zip lock bag for disposal into black container labeled SP. sodium chloride 0.9 % flush/inj 3 mL 3 mL, IV Push, PRN Other, Line Patency, Starting on Tran 12/27/22 at 1539, Until Sat01/01/23 at 2033, Do not flush if lock, PICC, or central line not in place, IV infusing or unable to flush traMADol (Ultram) tab 25 mg 25 mg, Oral, Q6H PRN Pain, Severe, Starting on 12/29/22 at 1127, Until Sat01/01/23 at 2033 1227 (Given - Provider: Charlotte Koroma RN)7321 (Given - Provider: Forrest Wright, LAMAR) documented in this encounter Advance Directives Latest Code Status on File Code Status Date Activated Date Inactivated Comments Full Code 12/27/2022 3:40 PM 01/01/2023 8:39 PM This or aj reflects the patients wishes and were consensually agreed upon. Question Answer Comments Discussion of Advance Directives occurred with: Patient Care Teams Metal Extrusion Supervisor Relationship Specialty Start Date End Date Chema Combs MD [address] [place], [place] [phone] PCP - General Family Medicine 07/02/18 documented as of this encounter
--- OUTSIDE RECORDS SUMMARY | 2023-05-22 15:01 | External Medical Summary | Summary of Care ---
Author Name Unknown Organization [facility] Address [address] [place] [address] Phone [phone] Care Team Providers Care Silica Spray Mixer Name Role Phone Chema Combs MD Primary Care Provider [phone] Reason for Visit * Reason Onset Date Comments Mycode Lab Reorder 01/01/2023 Encounter Details Date Type Department Care Team Description 01/01/2023 Orders Only Outcomes Research Department [address] [place] [address] Teri Camarillo CHRA MyCode Research Other*[id number]* Allergies Active Allergy Reactions Severity Noted Date Comments Lisinopril Cough Low 08/18/2009 documented as of this encounter (statuses as of 01/01/2023) Medications Medication Sig Dispensed Refills Start Date End Date Status Furosemide 20 MG Oral Tablet (Lasix)Indicatio ns:Localized edema TAKE 2 TABLETS BY MOUTH EVERY DAY 180 Tablet 1 12/31/2022 Active VITAMIN D 1000 UNITS PO CAPSIndications: Vitamin D deficiency Take 2 Capsules by mouth in the morning. 60 Cap 11 05/14/2014 Suspended Acetaminophen 500 MG Capsule Take 2 Capsules by mouth every 6 hours as needed for Fever >38C(100.5F) or Pain, Mild. 0 Suspended aspirin enteric coated 81 MG TBEC Take 1 Tablet by mouth in the morning. 0 Suspended Fluticasone-Umec lidin-Vilant 100-62.5-25 MCG/ACT Aerosol Powder Breath Activated Inhale 1 Puff by mouth in the morning. 0 Suspended allopurinol (ZYLOPRIM) 100 MG TabletIndication s:Chronic leukemia in remission (HCC),Elevated blood uric acid level Take 1 Tab by mouth daily. 30 Tab 5 03/25/2019 Suspended Additional Information levalbuterol (XOPENEX) 1.25 MG/3ML nebulizer solution Inhale 1 Ampule via nebulizer every 8 hours as needed for Shortness of Breath or Wheezing. 5 05/01/2019 Suspended Albuterol Sulfate HFA 108 (90 Base) MCG/ACT Inhalation Aerosol Solution Inhale 2 Puffs by mouth every 4 hours as needed for Wheezing or Shortness of Breath. 0 04/12/2021 Suspended metFORMIN HCl ER 500 MG Oral Tablet Extended Release 24 Hour (Glucophage XR)Indications:P rediabetes Take by mouth 1 Tablet in the morning. 90 Tablet 3 01/17/2022 Suspended Additional Information Atorvastatin Calcium 20 MG Oral Tablet (Lipitor)Indicat ions:Dyslipidemi a, goal LDL below 100 Take by mouth 1 Tablet in the morning. 90 Tablet 3 01/17/2022 Suspended Additional Information Gabapentin 300 MG Oral Capsule (Neurontin)Indic ations:Essential tremor 3 caps twice daily 540 Capsule 3 01/17/2022 Suspended Additional Information Patient not taking.Informant: Patient, Reported on 12/27/2022 dilTIAZem HCl ER Coated Beads 120 MG Oral Capsule Extended Release 24 Hour (Cardizem CD)Indications:H TN, goal below 150/90,PAF (paroxysmal atrial fibrillation) ([facility]) TAKE 1 CAPSULE BY MOUTH EVERY DAY 90 Capsule 3 06/28/2022 Suspended Additional Information Eliquis 5 MG Oral Tablet (Apixaban)Indica tions:PAF (paroxysmal atrial fibrillation) (HCC) TAKE 1 TABLET BY MOUTH TWICE A DAY 180 Tablet 3 06/28/2022 Suspended Additional Information Metoprolol Tartrate 50 MG Oral Tablet (Lopressor)Indic ations:HTN, goal below 150/90,PAF (paroxysmal atrial fibrillation) (HCC) TAKE 1 TABLET BY MOUTH TWICE A DAY 180 Tablet 3 06/28/2022 Suspended Additional Information Potassium Chloride ER 10 MEQ Oral Tablet Extended ReleaseIndicatio ns:HTN, goal below 150/90 TAKE 1 TABLET BY MOUTH EVERY DAY 90 Tablet 1 12/14/2022 Suspended Additional Information documented as of this encounter (statuses as of 01/01/2023) Active Problems Problem Noted Date Transaminitis 12/30/2022 Liver mass 12/29/2022 Liver abscess 12/27/2022 Prediabetes 01/02/2021 Overview: Per Prediabetes protocol Essential [...] as of this encounter (statuses as of 01/01/2023) Resolved Problems Problem Noted Date Resolved Date [...] 02/06/2008 06/16/2015 PVD (PERIPHERAL VASCULAR DISEASE) [facility] 02/06/2008 01/02/2012 Screening for prostate cancer 02/06/2008 Overview: Resolved per Screening Diagnosis Protocol #6 Tobacco use disorder 02/06/2008 01/02/2012 Osteoporosis 02/06/2008 06/16/2015 PAIN IN LIMB, LEFT DISTAL GREAT TOE 02/06/2008 06/16/2015 HTN, goal below 140/90 3 HTN, goal below 140/80 5 documented as of this encounter (statuses as of 01/01/2023) Immunizations Name Administration Dates Next Due COVID-19 [...] as of this encounter Progress Notes * KRISTEN Canas - 01/01/2023 9:11 AM EDT MyCode lab reordered. documented in this encounter Plan of Treatment Upcoming Encounters Date Type Specialty Care Team Description 01/07/2023 Office Visit General Surgery Chloe Dong MD [address] [place] [address] 01/16/2023 Office Visit Hematology Oncology Scout Huddleston MD [address] [place] [address] 01/23/2023 Office Visit Family Medicine Chema Combs MD [address] [place] [address] 09/19/2023 Office Visit Cardiology Prashant Ruiz, DO [address] [place] [address] Scheduled Orders Name Type Priority Associated Diagnoses Orde r Schedule MYCODE SUBSEQUENT ADULT Lab Routine MyCode Research Other*[id number] Every 6 Months for 2 Occurrences starting 01/01/2023 until 01/21/2024 Scheduled Procedures Name Priority Associated Diagnoses Date/Ti [...] ASSESSMENT COMPLETED IN PAST YEAR FOR COPD 01/01/2024 01/01/2023 GFR 01/02/2024 01/01/2023, 08/0 11/2022, 12/30/2022, Additional history exists Colonoscopy 07/06/2026 07/06/2016, 07/06/2016 [...] 08/29/2016 LUNG CANCER SCREENING - USE SMARTSET 52161 Completed 10/01/2017 Zoster Vaccines Completed 12/14/2019, 09/24, 02/16/2013 GARDASIL-HPV IMMUNIZATION SERIES Aged Out No longer eligible based on patient's age to complete this topic Hepatitis B Aged Out No longer eligi ble based on patient's age to complete this topic documented as of this encounter Medical Devices Not on filedocumented as of this encounter Visit Diagnoses Diagnosis MyCode Research Other*[id number] Primary documented in this encounter Advance Directives Latest Code Status on File Code Status Date Activated Date Inactivated Comments Full Code 12/27/2022 3:40 PM This order reflects the patients wishes and were consensually agreed upon. Question Answer Comments Discussion of Advance Directives occurred with: Patient Care Teams Silica Spray Mixer Relationship Specialty Start Date End Date Chema Combs MD [address] [place], [place] [phone] PCP - General Family Medicine 07/02/18 documented as of this encounter
--- OUTSIDE RECORDS SUMMARY | 2023-05-22 15:01 | External Medical Summary | Summary of Care ---
Author Name Unknown Organization [facility] Address [address] [place] [facility] [place] [address] Phone [phone] Care Team Providers Care Hunting Guide Name Role Phone Chema Combs MD Primary Care Provider [phone] Reason for Visit * Reason Onset Date Comments Hospital Follow-Up 01/02/2023 [facility] Encounter Details Date Type Department Care Team Description 01/02/[address] [address] Celi Edwards, LAMAR Hospital Follow-Up ([facility]) Allergies Active Allergy Reactions Severity Noted Date [...] (PERIPHERAL VASCULAR DISEASE) [facility] 02/06/2008 01/02/2012 Screening for prostate cancer [...] encounter Miscellaneous Notes * Telephone Encounter - Celi Edwards RN - 01/02/2023 3:11 PM EDT Transitions of Care Note Reason for Referral:Recent Admission Phone visit for follow up: [facility] Admitted to: [facility], Date: 12/27/2022 Discharged to: Home, Date: 01/01/2023 Diagnosis driving hospitalization: Liver mass Source/Contact: Patient SUBJECTIVE Consent: Verbal consent for review of hospital discharge: Yes REVIEW OF SYSTEMS Patient/Other Reports: Current patient/caregiver problems or concerns: States he is doing "Pretty good" at home. He is eating and drinking, but states states no real appetite yet. Has not needed to take Oxycodone, Rt UQ pain "good now". Oncology visit earlier today with Dr. Huddleston. CV: Denies problems Pulmonary: Denies problems Chills/Sweats/Fever:Denies chills/sweats Denies fever Appetite:Decreased appetite, but eating well Current diet: Low fat Bowel: denies problems Bladder: denies problems Wound (If applicable): N/A Pain:Denies Sleep:Denies problems FUNCTIONAL STATUS: ADL'S: Needs Assistance With:N/A as pt is independent IADL'S: Needs Assistance With:N/A as pt is independent Cognitive and Mental Health: denies problems, alert and oriented x 3 and able to communicate, understand instructions, process information. MEDICATION RECONCILIATION Medications: Discharge med list reviewed with patient or caregiver New medications: Oxycodone Changed medication: Furosemide Discontinued medication: Potassium ASSESSMENT Medication Risk Assessment: No risks identified Did patient fail outpatient treatment? No Discharge instructions available for review? Yes PLAN Symptom Monitoring Interventions:Member/caregiver education - signs and symptoms to contact PrimaryCare (DO NOT DELETE-Three arreola symptoms patient is to report to PCP) 1. Chest Pain/SOB 2. Fever/chills 3. Worsening pain Make Ready MechanicDigital Art Director of Care interventions/Action Plan: 5 - 7 day follow-up with PCP in place - Date: PCP appointment 01/10/2023 Educated on role of ANA [facility]URA completed with patient/caregiver. Educated patient/caregiver on patient right to have input on [facility] plan of care. Verification of Home Health/DME if indicated: NA Identified Care Gaps: No Care Gaps closed this call: Appointment made or confirmed and Transition of Care follow-up communication Re-evaluation of Plan of Care and progress towards goals achievement: Patient education this visit: Verbal, Confirmed PCP appointment 01/10/2023, discussed reasons to call sooner as above, notified oflate hours and weekend provider visits available if needed. Plan to instructed to call Primary Care Provider with change in symptoms or as needed before next follow-up, discharge needs met, verbalizes understanding and agrees with plan. Celi Edwards, RN documented in this encounter Plan of Treatment Upcoming Encounters Date Type Specialty Care Team Description 01/07/2023 Office Visit General Surgery Chloe Dong MD [address] [place], [place] [phone] 01/10/2023 Office Visit Family Medicine Chema Combs MD [address] [place] [address] 01/22/2023 Office Visit General Surgery Anthony Tirado MD [address] [place] [address] 01/23/2023 Office Visit Family Medicine Chema Combs MD [address] [place], [place] [phone] 01/23/2023 Laboratory Laboratory Have, [facility] [address] [place] [address] 01/30/2023 Office Visit Hematology Oncology Scout Huddleston MD [address] [place] [address] 09/19/2023 Office Visit Cardiology Prashant Ruiz, DO [address] [place] [address] Scheduled Procedures Name Priority Associated Diagnoses Date/Ti [...] COMPLETED IN PAST YEAR FOR COPD 01/02/2024 01/02/2023 Colonoscopy 07/06/2026 07/06/2016, 07/06/2016 Colorectal Cancer [...] 08/29/2016 LUNG CANCER SCREENING - USE SMARTSET [id number] Completed 10/01/2017 Zoster Vaccines Completed 12/14/2019, 09/24, [...] Advance Directives occurred with: Patient Care Teams Hunting Guide Relationship Specialty Start Date End Date Chema Combs MD [address] [facility] [place] [phone] PCP - General Family Medicine 07/02/18 documented as of this encounter
--- OUTSIDE RECORDS SUMMARY | 2023-05-22 15:01 | External Medical Summary | Summary of Care ---
Author Name Unknown Organization [facility] Address [address] [facility] [place] [address] Phone [phone] Care Team Providers Care Bale Opener Name Role Phone Chema Combs MD Primary Care Provider [phone] Reason for Visit * Reason Comments Follow Up Encounter Details Date Type Department Care Team Description 01/02/2023 Office Visit Hematology/Oncology [facility] State [place] [address] [facility] [place] [address] Scout Huddleston MD [address] [facility] [place] [address] Liver mass*; Chronic lymphocytic 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 [...] Sign Reading Time Taken Comments Blood Pressure 155/88 01/02/2023 10:54 AM EDT Pulse 89 01/02/2023 10:54 AM EDT Temperature 36.6 C (97.9 F) 01/02/2023 1 0:54 AM EDT Respiratory Rate 16 01/02/2023 10:5 4 AM EDT Oxygen Saturation 94% 01/02/2023 10: 54 AM EDT Inhaled Oxygen Concentration - - Weight 106.6 kg (235 lb 1.6 oz) 023 10:54 AM EDT Height - - Body Mass Index 31.89 12/27/2022 5:15 PM EDT documented in this [...] Progress Notes * Scout Huddleston MD - 01/02/2023 11:09 AM EDT Outpatient Consult Note Data Source: Patient, Epic record. Data Source: Patient, Epic record. 01/02/2023 11:09 AM Jh Fields Jr. [id number] 72 year old Patient Encounter: HEMATOLOGY/ONCOLOGY [facility] Cancer Diagnosis: Chronic lymphocytic leukemia Current Treatment: Observation Previous Treatment: Chlorambucil and ibrutinib Oncologic History : 72year old male who presented to his PCP's office with painful left great toe. A CBCD was doneon 02/10/2008nd showed a WBC of 27,620 with 17% segs and 77% lymphs. Review of the smear showed smudge cells and prolymphocytes. His Hemoglobin and Platelet Count were normal. He then had T+B cell studies done which confirmed a diagnosis of B Cell Chronic Lymphocytic Leukemia. His leukemia cells were ZAP70 and CD38 negative. In thepast he was treated with chlorambucil because of elevated white cell counts. He was also treated with ibrutinibbetween 11/29/2016 - 09/13/2017 and subsequently it was discontinued because patient was admitted in the hospital because of the rapid AFib andthere were changes in the lung and he become oxygen dependent,thought to be because of the toxicity of ibrutinib. He was started on anticoagulationand currently on Eliquis. Interval History: He was admitted to the hospital and discharged yesterday. He presented with complaint of abdominal pain had CTthatshowedill-defined hepatic masses near the gallbladder with concern for metastasis or primary gallbladder malignancy. U/S was ordered which showed gallstones but no cholecystitis. R adiology recommended MRIw/ and w/out contrastfor follow-up whichshowed ring enhancing liver lesions clustered around the gallbladder fossa suspicious for abscess or infection and the gallbladder contracted around the gallstones with some concern for malignancy.Hepatic enzymes significantly elevated on admission. Started on [...] to discuss intervention in the outpatient setting. Patient has appointment with General surgery on 01/07/[address] Tirado on 01/22/2023. Patient is still complaining of abdominal discomfort with dull pain. No fever or night sweats. LABS/IMAGING: Results for orders placed or performed during the hospital encounter of 12/27/22 COMPREHENSIVE METABOLIC PANEL Result Value Ref Range BUN 21 (H) 6 - 20 mg/dL Creatinine 1.0 0.6 - 1.2 mg/dL Estimated Glomerular Filtration Rate 84 >=60 mL/min Sodium 135 135 - 146 mmol/L Potassium 4.2 3.5 - 5.1 mmol/L Chloride 100 98 - 107 mmol/L CO2 23 22 - 32 mmol/L Anion Gap 12 7 - 15 mmol/L Glucose 136 (H) 70 - 120 mg/dL Albumin 4.0 3.8 - 5.0 g/dL AST 49 10 - 50 U/L Alkaline Phosphatase 312 (H) 35 - 130 U/L Bilirubin, Total 0.8 <=1.2 mg/dL Calcium 9.6 8.4 - 10.2 mg/dL Protein 6.9 6.0 - 8.3 g/dL ALT 71 (H) 10 - 50 U/L LACTATE Result Value Ref Range Lactate 2.3 (H) 0.4 - 2.0 mmol/L PROCALCITONIN Result Value Ref Range Procalcitonin 0.08 <0.10 ng/mL CRP (INFLAMMATORY MARKER) Result Value Ref Range CRP (Inflammatory Marker) 21 (H) <=5 mg/L CULTURE, BLOOD Result Value Ref Range Blood Culture Growth No growth CULTURE, BLOOD Result Value Ref Range Blood Culture Growth No growth CBC Result Value Ref Range WBC 25.46 (H) 4.00 - 10.80 K/uL RBC 5.12 4.50 - 5.25 M/uL HGB 15.6 14.0 - 16.8 g/dL HCT 47.1 40.0 - 48.4 % MCV 92.0 82.0 - 99.5 fL MCH 30.5 27.0 - 34.0 pg MCHC 33.1 32.0 - 36.0 g/dL RDW 14.0 11.5 - 15.5 % PLT 335 140 - 400 K/uL MPV 9.2 6.6 - 11.1 fL nRBCs 0 <=0 /100 WBCs TYPE AND SCREEN Result Value Ref Range ABO A Rh Positive Red Blood Cell Antibody Screen Negative Specimen Expiration Date 12/30/2022 23:59 ABO/RH Result Value Ref Range ABO A Rh Positive DIFFERENTIAL, TECHNOLOGIST REVIEW Result Value Ref Range WBC 25.46 (H) 4.00 - 10.80 K/uL Neutrophils % 32.0 (L) 40.0 - 75.0 % Lymphocytes % 68.0 (H) 18.0 - 42.0 % Absolute Neutrophils 8.15 (H) 1.80 - 7.70 K/uL Absolute Lymphocytes 17.31 (H) 1.00 - 4.80 K/uL Reactive Lymphocytes Present (A) None Seen BASIC METABOLIC PANEL Result Value Ref Range BUN 19 6 - 20 mg/dL Creatinine 1.1 0.6 - 1.2 mg/dL Estimated Glomerular Filtration Rate 70 >=60 mL/min Sodium 137 135 - 146 mmol/L Potassium 4.4 3.5 - 5.1 mmol/L Chloride 102 98 - 107 mmol/L CO2 24 22 - 32 mmol/L Anion Gap 11 7 - 15 mmol/L Glucose 120 70 - 120 mg/dL Calcium 9.0 8.4 - 10.2 mg/dL CBC Result Value Ref Range WBC 19.98 (H) 4.00 - 10.80 K/uL RBC 4.66 4.50 - 5.25 M/uL HGB 13.9 (L) 14.0 - 16.8 g/dL HCT 43.0 40.0 - 48.4 % MCV 92.3 82.0 - 99.5 fL MCH 29.8 27.0 - 34.0 pg MCHC 32.3 32.0 - 36.0 g/dL RDW 14.3 11.5 - 15.5 % PLT 318 140 - 400 K/uL MPV 9.1 6.6 - 11.1 fL nRBCs 0 <=0 /100 WBCs DIFFERENTIAL, TECHNOLOGIST REVIEW Result Value Ref Range WBC 19.98 (H) 4.00 - 10.80 K/uL Neutrophils % 49.0 40.0 - 75.0 % Lymphocytes % 43.0 (H) 18.0 - 42.0 % Monocytes % 7.0 1.0 - 11.0 % Eosinophils % 1.0 0.0 - 6.0 % Absolute Neutrophils 9.79 (H) 1.80 - 7.70 K/uL Absolute Lymphocytes 8.59 (H) 1.00 - 4.80 K/uL Absolute Monocytes 1.40 (H) 0.00 - 1.10 K/uL Absolute Eosinophils 0.20 0.00 - 0.70 K/uL Reactive Lymphocytes Present (A) None Seen CULTURE, WOUND, DEEP, AEROBIC AND ANAEROBIC Result Value Ref Range Culture Growth No aerobic or anaerobic growth Stain Description Few Polymorphonuclear leukocytes Stain Description No organisms seen CULTURE,FUNGUS,NON-DERM Specimen: Liver; Deep Wound Result Value Ref Range Culture Growth No fungus isolated to date Stain Description No yeast or hyphae seen. BASIC METABOLIC PANEL Result Value Ref Range BUN 24 (H) 6 - 20 mg/dL Creatinine 1.4 (H) 0.6 - 1.2 mg/dL Estimated Glomerular Filtration Rate 52 (L) >=60 mL/min Sodium 137 135 - 146 mmol/L Potassium 4.1 3.5 - 5.1 mmol/L Chloride 102 98 - 107 mmol/L CO2 24 22 - 32 mmol/L Anion Gap 11 7 - 15 mmol/L Glucose 116 70 - 120 mg/dL Calcium 9.3 8.4 - 10.2 mg/dL VANCOMYCIN RANDOM Result Value Ref Range Vancomycin Random 22.0 10.0 - 40.0 ug/mL CBC Result Value Ref Range WBC 21.19 (H) 4.00 - 10.80 K/uL RBC 4.69 4.50 - 5.25 M/uL HGB 13.9 (L) 14.0 - 16.8 g/dL HCT 42.9 40.0 - 48.4 % MCV 91.5 82.0 - 99.5 fL MCH 29.6 27.0 - 34.0 pg MCHC 32.4 32.0 - 36.0 g/dL RDW 14.3 11.5 - 15.5 % PLT 332 140 - 400 K/uL MPV 9.3 6.6 - 11.1 fL nRBCs 0 <=0 /100 WBCs DIFFERENTIAL, AUTOMATED Result Value Ref Range WBC 21.19 (H) 4.00 - 10.80 K/uL Neutrophils % 34.3 (L) 40.0 - 75.0 % Lymphocytes % 57.7 (H) 18.0 - 42.0 % Monocytes % 6.6 1.0 - 11.0 % Eosinophils % 0.6 0.0 - 6.0 % Basophils % 0.4 0.0 - 2.0 % Immature Granulocytes % 0.4 0.0 - 2.0 % Absolute Neutrophils 7.28 1.80 - 7.70 K/uL Absolute Lymphocytes 12.22 (H) 1.00 - 4.80 K/ul Absolute Monocytes 1.40 (H) 0.00 - 1.10 K/uL Absolute Eosinophils 0.13 0.00 - 0.70 K/uL Absolute Basophils 0.08 0.00 - 0.20 K/uL Absolute Immature Granulocytes 0.08 0.00 - 0.20 K/uL HEPATIC FUNCTION PANEL Result Value Ref Range Albumin 3.5 (L) 3.8 - 5.0 g/dL AST 51 (H) 10 - 50 U/L Alkaline Phosphatase 289 (H) 35 - 130 U/L ALT 67 (H) 10 - 50 U/L Bilirubin, Total 1.3 (H) <=1.2 mg/dL Bilirubin, Direct 0.5 (H) 0.0 - 0.3 mg/dL Protein 6.1 6.0 - 8.3 g/dL BASIC METABOLIC PANEL Result Value Ref Range BUN 23 (H) 6 - 20 mg/dL Creatinine 1.3 (H) 0.6 - 1.2 mg/dL Estimated Glomerular Filtration Rate 60 >=60 mL/min Sodium 138 135 - 146 mmol/L Potassium 3.7 3.5 - 5.1 mmol/L Chloride 100 98 - 107 mmol/L CO2 26 22 - 32 mmol/L Anion Gap 12 7 - 15 mmol/L Glucose 128 (H) 70 - 120 mg/dL Calcium 9.5 8.4 - 10.2 mg/dL CBC Result Value Ref Range WBC 18.55 (H) 4.00 - 10.80 K/uL RBC 4.46 4.50 - 5.25 M/uL HGB 13.5 (L) 14.0 - 16.8 g/dL HCT 40.9 40.0 - 48.4 % MCV 91.7 82.0 - 99.5 fL MCH 30.3 27.0 - 34.0 pg MCHC 33.0 32.0 - 36.0 g/dL RDW 14.1 11.5 - 15.5 % PLT 346 140 - 400 K/uL MPV 9.3 6.6 - 11.1 fL nRBCs 0 <=0 /100 WBCs HEPATIC FUNCTION PANEL Result Value Ref Range Albumin 3.6 (L) 3.8 - 5.0 g/dL AST 42 10 - 50 U/L Alkaline Phosphatase 274 (H) 35 - 130 U/L ALT 57 (H) 10 - 50 U/L Bilirubin, Total 0.8 <=1.2 mg/dL Bilirubin, Direct 0.2 0.0 - 0.3 mg/dL Protein 6.2 6.0 - 8.3 g/dL BASIC METABOLIC PANEL Result Value Ref Range BUN 20 6 - 20 mg/dL Creatinine 1.1 0.6 - 1.2 mg/dL Estimated Glomerular Filtration Rate 71 >=60 mL/min Sodium 134 (L) 135 - 146 mmol/L Potassium 4.2 3.5 - 5.1 mmol/L Chloride 99 98 - 107 mmol/L CO2 24 22 - 32 mmol/L Anion Gap 11 7 - 15 mmol/L Glucose 123 (H) 70 - 120 mg/dL Calcium 9.3 8.4 - 10.2 mg/dL CBC Result Value Ref Range WBC 20.58 (H) 4.00 - 10.80 K/uL RBC 4.60 4.50 - 5.25 M/uL HGB 13.6 (L) 14.0 - 16.8 g/dL HCT 42.3 40.0 - 48.4 % MCV 92.0 82.0 - 99.5 fL MCH 29.6 27.0 - 34.0 pg MCHC 32.2 32.0 - 36.0 g/dL RDW 14.1 11.5 - 15.5 % PLT 361 140 - 400 K/uL MPV 9.3 6.6 - 11.1 fL nRBCs 0 <=0 /100 WBCs BASIC METABOLIC PANEL Result Value Ref Range BUN 21 (H) 6 - 20 mg/dL Creatinine 1.1 0.6 - 1.2 mg/dL Estimated Glomerular Filtration Rate 71 >=60 mL/min Sodium 135 135 - 146 mmol/L Potassium Chloride 101 98 - 107 mmol/L CO2 24 22 - 32 mmol/L Anion Gap 10 7 - 15 mmol/L Glucose 117 70 - 120 mg/dL Calcium 9.2 8.4 - 10.2 mg/dL CBC Result Value Ref Range WBC 18.81 (H) 4.00 - 10.80 K/uL RBC 4.79 4.50 - 5.25 M/uL HGB 14.5 14.0 - 16.8 g/dL HCT 43.9 40.0 - 48.4 % MCV 91.6 82.0 - 99.5 fL MCH 30.3 27.0 - 34.0 pg MCHC 33.0 32.0 - 36.0 g/dL RDW 13.9 11.5 - 15.5 % PLT 381 140 - 400 K/uL MPV 9.3 6.6 - 11.1 fL nRBCs 0 <=0 /100 WBCs His white cell counts are in stable range with normal hemoglobin and platelet counts. REVIEW OF SYSTEMS: General: No Fever, chills, night sweats HEENT: No change in visual acuity, blurred or double vision. No epistaxis, facial pain, nasal discharge or change in hearing. Denies dysphagia, no muscosal ulceration, or sores noted. Cardiovascular: No chest pain, WIGGINS, or palpitations Respiratory: stable shortness of breath, cough, No hemoptysis, or pleuritic chest pain Gastrointestinal: Stable abdominal pain, nausea, No vomiting, diarrhea, rectal pain or bleeding Genitourinary: [...] 11/12/2013 Prediabetes 04/2012 PVD (peripheral vascular disease) ([facility]) Current Outpatient Medications Medication Sig Dispense Refill VITAMIN D 1000 UNITS PO CAPS Take 2 Capsules by mouth in the morning. 60 Cap 11 Acetaminophen 500 MG Capsule Take 2 Capsules by mouth every 6 hours as needed for Fever >38C(100.5F) or Pain, Mild. aspirin enteric coated 81 MG TBEC Take 1 Tablet by mouth in the morning. Fpmjfldpksg-Baztdbdlx-Eftgby 100-62.5-25 MCG/ACT Aerosol Powder Breath Activated Inhale [...] Inhalation Aerosol Solution Inhale 2 Puffs by mouthevery 4 hours as needed for Wheezing or Shortness of Breath. metFORMIN HCl ER 500 MG Oral Tablet Extended Release 24 Hour (Glucophage XR) Take by mouth 1 Tablet in the morning. 90 Tablet 3 Atorvastatin Calcium 20 MG Oral Tablet (Lipitor) Take by mouth 1 Tablet in the morning. 90 Tablet 3 Gabapentin 300 MG Oral Capsule (Neurontin) 3 caps twice daily (Patient not taking: Reported on 12/27/2022) 540 Capsule 3 dilTIAZem HCl ER Coated Beads 120 MG Oral Capsule Extended Release 24 Hour (Cardizem CD) TAKE 1CAPSULE BY MOUTH EVERY DAY 90 Capsule 3 Eliquis 5 MG Oral Tablet (Apixaban) TAKE 1 TABLET BY MOUTH TWICE A DAY 180 Tablet 3 Metoprolol Tartrate 50 MG Oral Tablet (Lopressor) TAKE 1 TABLET BY MOUTH TWICE A DAY 180 Tablet3 Furosemide 20 MG Oral Tablet (Lasix) TAKE 2 TABLETS BY MOUTH EVERY DAY 180 Tablet 1 oxyCODONE HCl 5 MG Oral Tablet (Oxy IR) Take 1 Tablet by mouth every 6 hours as needed for moderate pain 12 Tablet 0 No current facility-administered medications [...] appearing patient in no acute distress BP 155/88 (BP Site: Left Arm, BP Position: Sitting, BP Cuff Size: Large) | Pulse 89 | Temp 36.6 C(97.9 F) (Tympanic) | Resp 16 | Wt 106.6 kg (235 lb 1.6 oz) | SpO2 94% | BMI 31.89 kg/m | BSA 2.33 m Vitals reviewed. HEENT: No oral or [...] and rhythm, normal S1, S2 Abdomen: Soft, tenderness in the right upper quadrant with no rigidity, bowel sounds present, no appreciable hepatosplenomegaly, no palpable masses Extremeties: Good pulses bilaterally, no peripheral edema. Skin: Normal skin tone with no rash, petechiae, ecchymosis noted. ASSESSMENT: 72-year-old male with history of chronic lymphocytic leukemia initially was diagnosed in 2007 and was treated initially with chlorambucil. Subsequently was treated with ibrutinib because of the high white cell count. Ibrutinib was discontinued because of the episodes of atrial fibrillation and lung toxicity thought to be because of ibrutinib. He was recently admitted to the hospital with complaint of abdominal pain and was found to have a mass involving the liver. There was a question of infection was treated with antibiotic. Final pathology from the cytology is still pending. There was a question of malignancy. Patient has follow-up appointment with surgeons and Surgical Oncology team. Discussed with the patient in detail about the diagnosis and reviewed all the available blood test result with him. Final decision about the treatment will depend on pathology finding and recommendation from the surgical team. PLAN: Return to clinic in 4 weeks with CBC, CMP, alpha fetoprotein, LDH. The patient voiced understanding of all of [...] Nursing Notes * Marcela Torres CMA - 01/02/2023 10:55 AM EDT Patient identifed by name and birthdate Do you have any concerns about pain management for today's visit? No Living Will or Advance Directive for Health Care as noted on the problem list. [employer] [facility] is a way you can talk to your provider on line through e-mail. Would you like to sign up? I can activate it for you? ALREADY ACTIVE Filed Vitals: 01/02/23 1054 BP: 155/88 Pulse: 89 Resp: 16 Temp: 36.6 C (97.9 F) TempSrc: Tympanic SpO2: 94% Weight: 106.6 kg (235 lb 1.6 oz) Patient was instructed to [...] General Surgery Chloe Dong MD [address] [place] [address] 01/10/2023 Office Visit Family Medicine Chema Combs MD [address] [place] [address] 01/22/2023 Office Visit General Surgery Anthony Tirado MD [address] [place] [address] 01/23/2023 Office Visit Family Medicine Chema Cobms MD [address] [place] [address] 01/23/2023 Laboratory [facility] [place] [address] [place] [address] 01/30/2023 Office Visit Hematology Oncology Scout Huddleston MD [address] [place] [address] 09/19/2023 Office Visit Cardiology Prashant Ruiz, DO [address] [place] [id number] Scheduled Orders Name Type Priority Associated Diagnoses Orde r Schedule CBC WITH WBC DIFFERENTIAL Lab Routine Liver mass 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) Expected: 01/28/2023, Expires: 05/06/2023 COMPREHENSIVE METABOLIC PANEL Lab Routine Liver mass 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) Expected: 01/28/2023, Expires: 05/06/2023 LD Lab Routine Liver mass 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) Expected: 01/28/2023, Expires: 05/06/2023 IMMUNOGLOBULIN QUANTITATIVE Lab Routine Liver mass 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) Expected: 01/28/2023, Expires: 05/06/2023 ALPHA-FETOPROTEIN TUMOR MARKER Lab Routine Liver mass 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) Expected: 01/28/2023, Expires: 04/09/2023 Scheduled Procedures Name Priority Associated Diagnoses Date/Ti [...] 08/29/2016 LUNG CANCER SCREENING - USE SMARTSET [id number] Completed 10/01/2017 Zoster Vaccines Completed 12/14/2019, 09/24, 02/16/2013 GARDASIL-HPV IMMUNIZATION SERIES Aged Out No longer eligible based on patient's age to complete this topic Hepatitis B Aged Out No longer eligi ble based on patient's age to complete this topic documented as of this encounter Medical Devices Not on filedocumented as of this encounter Visit Diagnoses Diagnosis Liver mass- Primary Unspecified disorder of liver Chronic lymphocytic leukemia [...] Directives occurred with: Patient Care Teams Bale Opener Relationship Specialty Start Date End Date Chema Combs MD [address], [place] [id number] PCP - General Family Medicine 07/02/18 documented as of this encounter"
--- OUTSIDE RECORDS SUMMARY | 2023-05-22 15:02 | External Medical Summary ---
Author Name Unknown Address Unknown Organization [id number]:LABORATORY [facility] [place] - [address] [place] [id number] Laboratory Report Ordering Provider Test Date Status BRAYDEN KHAN 01/01/2023 07:31:00 Final Observation Date Value Abnormality Reference (Units ) Status WBC, Total 01/01/2023 07:31:00 18.81 Above high normal 4.00-10.80 (K/uL) Final RBC 01/01/2023 07:31:00 4.79 4.50-5.25 (M/uL) Final Hemoglobin 01/01/2023 07:31:00 14.5 14.0-16.8 (g/dL) Final HCT 01/01/2023 07:31:00 43.9 40.0-48.4 (%) Final MCV 01/01/2023 07:31:00 91.6 82.0-99.5 (fL) Final MCH 01/01/2023 07:31:00 30.3 27.0-34.0 (pg) Final MCHC 01/01/2023 07:31:00 33.0 32.0-36.0 (g/dL) Final RDW 01/01/2023 07:31:00 13.9 11.5-15.5 (%) Final Platelets 01/01/2023 07:31:00 381 140-400 (K/uL) Final MPV 01/01/2023 07:31:00 9.3 6.6-11.1 (fL) Final Nucleated erythrocytes/100 leukocytes [Ratio] in Blood by Automated count 01/01/2023 07:31:00 0 <=0 (/100 WBCs) Final Performing Location LABORATORY [facility] - [address] [place] [id number]
--- OUTSIDE RECORDS SUMMARY | 2023-05-22 15:02 | External Medical Summary ---
Author Name Unknown Address Unknown Organization [id number]:LABORATORY [facility] [place] - [address] [facility] [place] [address] Laboratory Report Ordering Provider Test Date Status ERINBRAYDEN 12/29/2022 07:20:00 Final Observation Date Value Abnormality Reference (Units ) Status SYNC LEUKOCYTES IN BLOOD BY AUTOMATED COUNT 12/29/2022 07:20:00 21.19 Above high normal 4.00-10.80 (K/uL) Final Segs 12/29/2022 07:20:00 34.3 Below low normal 40.0-75.0 (%) Final Lymphs % 12/29/2022 07:20:00 57.7 Above high normal 18.0-42.0 (%) Final Monos 12/29/2022 07:20:00 6.6 1.0-11.0 (%) Final Eosinophils 12/29/2022 07:20:00 0.6 0.0-6.0 (%) Final Basos 12/29/2022 07:20:00 0.4 0.0-2.0 (%) Final Immature Granulocyte, Percent 12/29/2022 07:20:00 0.4 0.0-2.0 (%) Final Absolute Segs 12/29/2022 07:20:00 7.28 1.80-7.70 (K/uL) Final Lymphs, absolute 12/29/2022 07:20:00 12.22 Above high normal 1.00-4.80 (K/ul) Final Monos, Abs 12/29/2022 07:20:00 1.40 Above high normal 0.00-1.10 (K/uL) Final Eos, Abs 12/29/2022 07:20:00 0.13 0.00-0.70 (K/uL) Final Basos, Abs 12/29/2022 07:20:00 0.08 0.00-0.20 (K/uL) Final Immature Granulocytes, Number 12/29/2022 07:20:00 0.08 0.00-0.20 (K/uL) Final Performing Location LABORATORY [facility] [place] - [facility] [address] [facility] [address]
--- OUTSIDE RECORDS SUMMARY | 2023-05-22 15:02 | External Medical Summary | Summary of Care ---
Author Name Unknown Organization [facility] Address [address] [facility] [address] Phone [phone] Care Team Providers Care Button Maker And Installer Name Role Phone Robert Combs MD Primary Care Provider [phone] Reason for Visit * Reason Comments eRx-Medication Refill Encounter Details Date Type Department Care Team Description 12/31/2022 Refill [facility] [address] [place] [address] Robert Combs MD [address] [place] [address] Localized edema Allergies Active Allergy Reactions Severity Noted Date Comments Lisinopril Cough Low 08/18/2009 documented as of this encounter (statuses as of 12/31/2022) Medications Medication Sig Dispensed Refills Start Date End Date Status Furosemide 20 MG Oral Tablet (Lasix)Indicati ons:Localized edema TAKE 2 TABLETS BY MOUTH EVERY DAY 180 Tablet 1 12/31/2022 Active VITAMIN D 1000 UNITS PO CAPSIndications :Vitamin D deficiency Take 2 Capsules by mouth in the morning. 60 Cap 11 05/14/2014 Suspended Acetaminophen 500 MG Capsule Take 2 Capsules by mouth every 6 hours as needed for Fever >38C(100.5F) or Pain, Mild. 0 Suspended aspirin enteric coated 81 MG TBEC Take 1 Tablet by mouth in the morning. 0 Suspended Fluticasone-Ume clidin-Vilant 100-62.5-25 MCG/ACT Aerosol Powder Breath Activated Inhale 1 Puff by mouth in the morning. 0 Suspended allopurinol (ZYLOPRIM) 100 MG TabletIndicatio ns:Chronic leukemia [...] Information Atorvastatin Calcium 20 MG Oral Tablet (Lipitor)Indica tions:Dyslipide balaji, goal LDL below 100 Take by mouth 1 Tablet in the morning. 90 Tablet 3 01/17/2022 Suspended Additional Information Gabapentin 300 MG Oral Capsule (Neurontin)Valerie cations:Essenti al tremor 3 caps twice daily 540 Capsule 3 01/17/2022 Suspended Additional Information Patient not taking.Informant: Patient, Reported on 12/27/2022 Furosemide 20 MG Oral Tablet (Lasix)Indicati ons:Localized edema TAKE 2 TABLETS BY MOUTH EVERY DAY 180 Tablet 2 03/30/2022 3 Discontinued dilTIAZem HCl ER Coated Beads 120 MG Oral Capsule Extended Release 24 Hour (Cardizem CD)Indications: HTN, goal below 150/90,PAF (paroxysmal atrial fibrillation) (HCC) TAKE 1 CAPSULE BY MOUTH EVERY DAY 90 Capsule 3 06/28/2022 Suspended Additional Information Eliquis 5 MG Oral Tablet (Apixaban)Indic ations:PAF (paroxysmal atrial fibrillation) (HCC) TAKE 1 TABLET BY MOUTH TWICE A DAY 180 Tablet 3 06/28/2022 Suspended Additional Information Metoprolol Tartrate 50 MG Oral Tablet (Lopressor)Valerie [...] as of this encounter (statuses as of 12/31/2022) Active Problems Problem Noted Date Transaminitis 12/30/2022 [...] as of this encounter (statuses as of 12/31/2022) Resolved Problems Problem Noted Date Resolved Date [...] 06/16/2015 PVD (PERIPHERAL VASCULAR DISEASE) PERIPH SPRING MCKEON,UNSKaorline 02/06/2008 01/02/2012 Screening for prostate cancer 02/06/2008 Overview: Resolved per Screening Diagnosis Protocol #6 Tobacco use disorder 02/06/2008 01/02/2012 Osteoporosis 02/06/2008 06/16/2015 PAIN IN LIMB, LEFT DISTAL GREAT TOE 02/06/2008 06/16/2015 HTN, goal below 140/90 3 HTN, goal below 140/80 5 documented as of this encounter (statuses as of 12/31/2022) Immunizations Name Administration Dates Next Due COVID-19 [...] encounter Miscellaneous Notes * Telephone Encounter - Mehran Baker angel - 12/31/2022 3:51 PM EDT Signed Prescriptions: Disp Refills Furosemide 20 MG Oral Tablet (Lasix) 180 Ta*1 Sig: TAKE 2 TABLETS BY MOUTH EVERY DAYAuthorizing Provider: ROBERT COMBS User: MEHRAN BAKER-------- documented in this encounter Plan of Treatment Upcoming Encounters Date Type Specialty Care Team Description 01/02/2023 Office Visit Hematology Oncology Scout Huddleston MD [address] [place] [address] 01/07/2023 Office Visit General Surgery Chloe Dong MD [address] [place] [address] 01/23/2023 Office Visit Family Medicine Robert Combs MD [address] [place] [address] 09/19/2023 Office Visit Cardiology Prashant Ruiz DO [address] [place] [address] Scheduled Procedures Name Priority Associated Diagnoses Date/Ti [...] 12/11/2022, 06/28, 07/06/2021, Additional history exists GFR 01/01/2024 12/31/2022, 08/0 10/2022, 12/29/2022, Additional history exists O2 ASSESSMENT COMPLETED IN PAST YEAR FOR COPD 01/01/2024 12/31/2022 Colonoscopy 07/06/2026 07/06/2016, 07/06/2016 Colorectal Cancer Screening [...] 08/29/2016 LUNG CANCER SCREENING - USE SMARTSET 36634 Completed 10/01/2017 Zoster Vaccines Completed 12/14/2019, 09/24, 02/16/2013 GARDASIL-HPV IMMUNIZATION SERIES Aged Out No longer eligible based on patient's age to complete this topic Hepatitis B Aged Out No longer eligi ble based on patient's age to complete this topic documented as of this encounter Medical Devices Not on filedocumented as of this encounter Visit Diagnoses Diagnosis Localized edema Edema documented in this encounter Advance Directives Latest Code Status on File Code Status Date Activated Date Inactivated Comments Full Code 12/27/2022 3:40 PM This order reflects the patients wishes and were consensually agreed upon. Question Answer Comments Discussion of Advance Directives occurred with: Patient Care Teams Button Maker And Installer Relationship Specialty Start Date End Date Robert Combs MD [address] [facility] [id number] PCP - General Family Medicine 07/02/18 documented as of this encounter
--- OUTSIDE RECORDS SUMMARY | 2023-05-22 15:02 | External Medical Summary ---
Author Name Unknown Address Unknown Organization K01:LABORATORY [facility] [place] - [facility] [address] [place] [id number] Laboratory Report Ordering Provider Test Date Status ESTHER MEIER 12/29/2022 07:20:00 Final Observation Date Value Abnormality Reference (Units ) Status Albumin 12/29/2022 07:20:00 3.5 Below low normal 3.8-5.0 (g/dL) Final AST (Aspartate aminotransferase) 12/29/2022 07:20:00 51 Above high normal 10-50 (U/L) Final Alk Phos 12/29/2022 07:20:00 289 Above high normal 35-130 (U/L) Final ALT (Alanine aminotransferase) 12/29/2022 07:20:00 67 Above high normal 10-50 (U/L) Final Bilirubin, Total 12/29/2022 07:20:00 1.3 Above high normal <=1.2 (mg/dL) Final Bilirubin, Direct 12/29/2022 07:20:00 0.5 Above high normal 0.0-0.3 (mg/dL) Final Protein 12/29/2022 07:20:00 6.1 6.0-8.3 (g/dL) Final Performing Location LABORATORY [facility] [place] - [address] [place] [address]
--- OUTSIDE RECORDS SUMMARY | 2023-05-22 15:02 | External Medical Summary ---
Author Name Unknown Address Unknown Organization K01:[place] [facility] [place] [facility] [address] [facility] [address] [place] [address] Laboratory Report Ordering Provider Test Date Status BRAYDEN KHAN 12/30/2022 08:54:00 Final Observation Date Value Abnormality Reference (Units ) Status WBC, Total 12/30/2022 08:54:00 18.55 Above high normal 4.00-10.80 (K/uL) Final RBC 12/30/2022 08:54:00 4.46 4.50-5.25 (M/uL) Final Hemoglobin 12/30/2022 08:54:00 13.5 Below low normal 14.0-16.8 (g/dL) Final HCT 12/30/2022 08:54:00 40.9 40.0-48.4 (%) Final MCV 12/30/2022 08:54:00 91.7 82.0-99.5 (fL) Final MCH 12/30/2022 08:54:00 30.3 27.0-34.0 (pg) Final MCHC 12/30/2022 08:54:00 33.0 32.0-36.0 (g/dL) Final RDW 12/30/2022 08:54:00 14.1 11.5-15.5 (%) Final Platelets 12/30/2022 08:54:00 346 140-400 (K/uL) Final MPV 12/30/2022 08:54:00 9.3 6.6-11.1 (fL) Final Nucleated erythrocytes/100 leukocytes [Ratio] in Blood by Automated count 12/30/2022 08:54:00 0 <=0 (/100 WBCs) Final Performing Location [place] [facility] [place] [address] [place] [address]
--- OUTSIDE RECORDS SUMMARY | 2023-05-22 15:02 | External Medical Summary ---
Author Name Unknown Address Unknown Organization K01:[place] [facility] [place] [facility] [address] [facility] [address] [place] [address] Laboratory Report Ordering Provider Test Date Status BRAYDEN KHAN 12/29/2022 07:20:00 Final Observation Date Value Abnormality Reference (Units ) Status WBC, Total 12/29/2022 07:20:00 21.19 Above high normal 4.00-10.80 (K/uL) Final RBC 12/29/2022 07:20:00 4.69 4.50-5.25 (M/uL) Final Hemoglobin 12/29/2022 07:20:00 13.9 Below low normal 14.0-16.8 (g/dL) Final HCT 12/29/2022 07:20:00 42.9 40.0-48.4 (%) Final MCV 12/29/2022 07:20:00 91.5 82.0-99.5 (fL) Final MCH 12/29/2022 07:20:00 29.6 27.0-34.0 (pg) Final MCHC 12/29/2022 07:20:00 32.4 32.0-36.0 (g/dL) Final RDW 12/29/2022 07:20:00 14.3 11.5-15.5 (%) Final Platelets 12/29/2022 07:20:00 332 140-400 (K/uL) Final MPV 12/29/2022 07:20:00 9.3 6.6-11.1 (fL) Final Nucleated erythrocytes/100 leukocytes [Ratio] in Blood by Automated count 12/29/2022 07:20:00 0 <=0 (/100 WBCs) Final Performing Location [place] [facility] [place] [address] [place] [address]
--- OUTSIDE RECORDS SUMMARY | 2023-05-22 15:02 | External Medical Summary ---
Author Name Unknown Address Unknown Organization K01:[facility]ATORY [facility] [place] - [address] [place] [id number] Laboratory Report Ordering Provider Test Date Status ERINBRAYDEN 12/28/2022 15:30:00 Final Observation Date Value Abnormality Reference (Units ) Status Bacteria identified in Specimen by Culture 12/28/2022 15:30:00 No fungus isolated Final Fungal Smear 12/28/2022 15:30:00 No yeast or hyphae seen. Final Test: Culture, Fungus, Non-D erm
Specimen Source: Liver
Specimen Type: Deep Wound
Specimen Date: 12/28/2022 3:30 PM
Result Date: 01/18/2023 4:05 PM
Result Status: Final result
Resulting Lab: [facility]ORY [facility] [place]
[address]
[place] [id number]

CULTURE

No fungus isolated

STAIN

No yeast or hyphae seen.

null Performing Location LAB[facility]ATORY [facility] [place] - [address] [facility] [address]
--- OUTSIDE RECORDS SUMMARY | 2023-05-22 15:02 | External Medical Summary ---
Author Name Unknown Address Unknown Organization K01:LABORATORY [facility] [place] - [address] [place] [address] Laboratory Report Ordering Provider Test Date Status BRAYDEN KHAN 12/30/2022 08:54:00 Final Observation Date Value Abnormality Reference (Units ) Status BUN 12/30/2022 08:54:00 23 Above high normal 6-20 (mg/dL) Final Creatinine 12/30/2022 08:54:00 1.3 Above high normal 0.6-1.2 (mg/dL) Final Glomerular filtration rate/1.73 sq M.predicted [Volume Rate/Area] in Serum, Plasma or Blood by Creatinine-based formula (CKD-EPI) 12/30/2022 08:54:00 60 >=60 (mL/min) Final eGFR is calculated based on the CKD-EPI 2020 equation SODIUM 12/30/2022 08:54:00 138 135-146 (m mol/L) Final Potassium 12/30/2022 08:54:00 3.7 3.5-5.1 (m mol/L) Final Cl 12/30/2022 08:54:00 100 98-107 (mm ol/L) Final CO2 12/30/2022 08:54:00 26 22-32 (mmo l/L) Final Anion gap 12/30/2022 08:54:00 12 7-15 (mmol /L) Final Glucose 12/30/2022 08:54:00 128 Above high normal 70 -120 (mg/dL) Final Calcium 12/30/2022 08:54:00 9.5 8.4-10.2 ( mg/dL) Final Performing Location LABORATORY [facility] [place] - [address] [place] [address]
--- OUTSIDE RECORDS SUMMARY | 2023-05-22 15:02 | External Medical Summary ---
Author Name Unknown Address Unknown Organization K01:[place] [facility] [place] [address] [place] [address] Laboratory Report Ordering Provider Test Date Status BRAYDEN KHAN 12/31/2022 07:49:00 Final Observation Date Value Abnormality Reference (Units ) Status BUN 12/31/2022 07:49:00 20 6-20 (mg/dL) Final Creatinine 12/31/2022 07:49:00 1.1 0.6-1.2 (mg/dL) Final Glomerular filtration rate/1.73 sq M.predicted [Volume Rate/Area] in Serum, Plasma or Blood by Creatinine-based formula (CKD-EPI) 12/31/2022 07:49:00 71 >=60 (mL/min) Final eGFR is calculated based on the CKD-EPI 2020 equation SODIUM 12/31/2022 07:49:00 134 Below low normal 135 -146 (mmol/L) Final Potassium 12/31/2022 07:49:00 4.2 3.5-5.1 (m mol/L) Final Result may be falsely elevat ed due to hemolysis. Cl 12/31/2022 07:49:00 99 98-107 (mm ol/L) Final CO2 12/31/2022 07:49:00 24 22-32 (mmo l/L) Final Anion gap 12/31/2022 07:49:00 11 7-15 (mmol /L) Final Glucose 12/31/2022 07:49:00 123 Above high normal 70 -120 (mg/dL) Final Calcium 12/31/2022 07:49:00 9.3 8.4-10.2 ( mg/dL) Final Performing Location [place] [facility] [place] [address] [place] [id number]
--- OUTSIDE RECORDS SUMMARY | 2023-05-22 15:02 | External Medical Summary ---
Author Name Unknown Address Unknown Organization K01:[place] [facility] [place] [facility] [address] [place] [address] Laboratory Report Ordering Provider Test Date Status BRAYDEN KHAN 12/31/2022 07:49:00 Final Observation Date Value Abnormality Reference (Units ) Status WBC, Total 12/31/2022 07:49:00 20.58 Above high normal 4.00-10.80 (K/uL) Final RBC 12/31/2022 07:49:00 4.60 4.50-5.25 (M/uL) Final Hemoglobin 12/31/2022 07:49:00 13.6 Below low normal 14.0-16.8 (g/dL) Final HCT 12/31/2022 07:49:00 42.3 40.0-48.4 (%) Final MCV 12/31/2022 07:49:00 92.0 82.0-99.5 (fL) Final MCH 12/31/2022 07:49:00 29.6 27.0-34.0 (pg) Final MCHC 12/31/2022 07:49:00 32.2 32.0-36.0 (g/dL) Final RDW 12/31/2022 07:49:00 14.1 11.5-15.5 (%) Final Platelets 12/31/2022 07:49:00 361 140-400 (K/uL) Final MPV 12/31/2022 07:49:00 9.3 6.6-11.1 (fL) Final Nucleated erythrocytes/100 leukocytes [Ratio] in Blood by Automated count 12/31/2022 07:49:00 0 <=0 (/100 WBCs) Final Performing Location [place] [facility] [place] [address] [place] [address]
--- OUTSIDE RECORDS SUMMARY | 2023-05-22 15:02 | External Medical Summary ---
Author Name Unknown Address Unknown Organization K01:LABORATORY [place] - [address] [place] [address] Laboratory Report Ordering Provider Test Date Status ESTHER MEIER 12/30/2022 08:54:00 Final Observation Date Value Abnormality Reference (Units ) Status Albumin 12/30/2022 08:54:00 3.6 Below low normal 3.8-5.0 (g/dL) Final AST (Aspartate aminotransferase) 12/30/2022 08:54:00 42 10-50 (U/L) Final Alk Phos 12/30/2022 08:54:00 274 Above high normal 35-130 (U/L) Final ALT (Alanine aminotransferase) 12/30/2022 08:54:00 57 Above high normal 10-50 (U/L) Final Bilirubin, Total 12/30/2022 08:54:00 0.8 <=1.2 (mg/dL) Final Bilirubin, Direct 12/30/2022 08:54:00 0.2 0.0-0.3 (mg/dL) Final Protein 12/30/2022 08:54:00 6.2 6.0-8.3 (g/dL) Final Performing Location LABORATORY [place] - [address] [place] [address]
--- OUTSIDE RECORDS SUMMARY | 2023-05-22 15:02 | External Medical Summary ---
Author Name Unknown Address Unknown Organization K01:[place] [facility] [place] [address] [place] [address] Laboratory Report Ordering Provider Test Date Status JACQUELINE BILL 12/29/2022 07:20:00 Final Observation Date Value Abnormality Reference (Units ) Status Vancomycin, level 12/29/2022 07:20:00 22.0 10 .0-40.0 (ug/mL) Final Performing Location LABORATORY [facility] - [address] [place] [address]
--- OUTSIDE RECORDS SUMMARY | 2023-05-22 15:02 | External Medical Summary ---
Author Name Unknown Address Unknown Organization K01:LABORATORY [facility] [place] - [facility] [address] [place] [address] Laboratory Report Ordering Provider Test Date Status BRAYDEN KHAN 12/29/2022 07:20:00 Final Observation Date Value Abnormality Reference (Units ) Status BUN 12/29/2022 07:20:00 24 Above high normal 6-20 (mg/dL) Final Creatinine 12/29/2022 07:20:00 1.4 Above high normal 0.6-1.2 (mg/dL) Final Glomerular filtration rate/1.73 sq M.predicted [Volume Rate/Area] in Serum, Plasma or Blood by Creatinine-based formula (CKD-EPI) 12/29/2022 07:20:00 52 Below low normal >=60 (mL/min) Final eGFR is calculated based on the CKD-EPI 2020 equation SODIUM 12/29/2022 07:20:00 137 135-146 (m mol/L) Final Potassium 12/29/2022 07:20:00 4.1 3.5-5.1 (m mol/L) Final Cl 12/29/2022 07:20:00 102 98-107 (mm ol/L) Final CO2 12/29/2022 07:20:00 24 22-32 (mmo l/L) Final Anion gap 12/29/2022 07:20:00 11 7-15 (mmol /L) Final Glucose 12/29/2022 07:20:00 116 70-120 (mg /dL) Final Calcium 12/29/2022 07:20:00 9.3 8.4-10.2 ( mg/dL) Final Performing Location LABORATORY [facility] [place] - [address] [place] [address]
--- OUTSIDE RECORDS SUMMARY | 2023-05-22 15:02 | External Medical Summary ---
Author Name Unknown Address Unknown Organization : Laboratory Report Ordering Provider Test Date Status BRAYDEN KHAN 12/28/2022 09:18:00 Final Observation Date Value Abnormality Reference (Units ) Status Performing Location
--- OUTSIDE RECORDS SUMMARY | 2023-05-22 15:02 | External Medical Summary ---
Author Name Unknown Address Unknown Organization K01:[place] [facility] [place] [address] [place] [address] Laboratory Report Ordering Provider Test Date Status BRODERICK BOATENG 12/28/2022 15:30:00 Final Top liver abscess aspiration in IR

No aerobic growth
null Observation Date Value Abnormality Reference (Units ) Status Bacteria identified in Unspecified specimen by Culture 12/28/2022 15:30:00 [id number]^CUTIB ACTERIUM ACNES Very abnormal Final Few Cutibacterium acnes Gram Stain 12/28/2022 15:30:00 Few Polymorphonuclear leukocy josiah Final Gram Stain 12/28/2022 15:30:00 No organisms seen Final Test: Culture, Wound, Deep, Aerobic and Anaerobic
Specimen Source: Liver
Specimen Type: Abscess
Specimen Date: 12/28/2022 3:30 PM
Result Date: 01/04/2023 10:39 AM
Result Status: Final result
Abnormal: Yes
Resulting Lab: [facility] [place]
[address]
[place] [address]

CULTURE

Few Cutibacterium acnes (Panic)

No aerobic growth

STAIN

Few Polymorphonuclear leukocytes

No organisms seen

null Performing Location [facility] [facility] [place] [address] [facility] [address]
--- OUTSIDE RECORDS SUMMARY | 2023-05-22 15:03 | External Medical Summary ---
Author Name Unknown Address Unknown Organization K01:LABORATORY [facility] [place] B [facility] - [address] [place] [address] Laboratory Report Ordering Provider Test Date Status SHIRLEY WHEELERCLAUDINE 12/27/2022 10:29:00 Final Observation Date Value Abnormality Reference (Units ) Status ABO 12/27/2022 10:29:00 A Final RH 12/27/2022 10:29:00 Positive Final RED BLOOD CELL ANTIBODY SCREEN 12/27/2022 10:29:00 Negative Final SPECIMEN EXPIRATION DATE 12/27/2022 10:29:00 12/30/2022 23:59 Final Performing Location LABORATORY [facility] [place] BLO[facility] - [address] [place] [address]
--- OUTSIDE RECORDS SUMMARY | 2023-05-22 15:03 | External Medical Summary ---
Author Name Unknown Address Unknown Organization K01:[place] [facility] [place] [address] [facility] [address] Laboratory Report Ordering Provider Test Date Status CALE WHEELER 12/27/2022 10:26:00 Final Observation Date Value Abnormality Reference (Units ) Status SYNC LEUKOCYTES IN BLOOD BY AUTOMATED COUNT 12/27/2022 10:26:00 25.46 Above high normal 4.00-10.80 (K/uL) Final Neutrophils/100 leukocytes in Blood by Manual count 12/27/2022 10:26:00 32.0 Below low normal 40.0-75.0 (%) Final Lymphocytes/100 leukocytes in Blood by Manual count 12/27/2022 10:26:00 68.0 Above high normal 18.0-42.0 (%) Final Neutrophils [#/volume] in Blood by Manual count 12/27/2022 10:26:00 8.15 Above high normal 1.80-7.70 (K/uL) Final Lymphocytes [#/volume] in Blood by Manual count 12/27/2022 10:26:00 17.31 Above high normal 1.00-4.80 (K/uL) Final Variant lymphocytes [Presence] in Blood by Light microscopy 12/27/2022 10:26:00 Present Abnormal None Seen Final Performing Location [place] [facility] [place] [address] [facility] [address]
--- OUTSIDE RECORDS SUMMARY | 2023-05-22 15:03 | External Medical Summary ---
Author Name Unknown Address Unknown Organization K01:LABORATORY [facility] - [address] [place] [address] Laboratory Report Ordering Provider Test Date Status BRAYDEN KHAN 12/28/2022 09:18:00 Final Observation Date Value Abnormality Reference (Units ) Status SYNC LEUKOCYTES IN BLOOD BY AUTOMATED COUNT 12/28/2022 09:18:00 19.98 Above high normal 4.00-10.80 (K/uL) Final Neutrophils/100 leukocytes in Blood by Manual count 12/28/2022 09:18:00 49.0 40.0-75.0 (%) Final Lymphocytes/100 leukocytes in Blood by Manual count 12/28/2022 09:18:00 43.0 Above high normal 18.0-42.0 (%) Final Monocytes/100 leukocytes in Blood by Manual count 12/28/2022 09:18:00 7.0 1.0-11.0 (%) Final Eosinophils/100 leukocytes in Blood by Manual count 12/28/2022 09:18:00 1.0 0.0-6.0 (%) Final Neutrophils [#/volume] in Blood by Manual count 12/28/2022 09:18:00 9.79 Above high normal 1.80-7.70 (K/uL) Final Lymphocytes [#/volume] in Blood by Manual count 12/28/2022 09:18:00 8.59 Above high normal 1.00-4.80 (K/uL) Final Monocytes [#/volume] in Blood by Manual count 12/28/2022 09:18:00 1.40 Above high normal 0.00-1.10 (K/uL) Final Eosinophils [#/volume] in Blood by Manual count 12/28/2022 09:18:00 0.20 0.00-0.70 (K/uL) Final Variant lymphocytes [Presence] in Blood by Light microscopy 12/28/2022 09:18:00 Present Abnormal None Seen Final Performing Location LABORATORY [facility] - [address] [facility] [address]
--- OUTSIDE RECORDS SUMMARY | 2023-05-22 15:03 | External Medical Summary ---
Author Name Unknown Address Unknown Organization K01:LABORATORY [facility] [place] B LOOD [facility] - [address] [place] [address] Laboratory Report Ordering Provider Test Date Status SHIRLEY WHEELERCLAUDINE 12/27/2022 10:29:00 Final Observation Date Value Abnormality Reference (Units ) Status ABO 12/27/2022 10:29:00 A Final RH 12/27/2022 10:29:00 Positive Final Performing Location LABORATORY [facility] [place] BLOOD [facility] - [address] [place] [address]
--- OUTSIDE RECORDS SUMMARY | 2023-05-22 15:03 | External Medical Summary ---
Author Name Unknown Address Unknown Organization K01:LABORATORY [facility] [place] - [address] [place] [address] Laboratory Report Ordering Provider Test Date Status CALE WHEELER 12/27/2022 10:26:00 Final Observation Date Value Abnormality Reference (Units ) Status Bacteria identified in Unspecified specimen by Culture 12/27/2022 10:26:00 No growth Final Test: Culture, Blood
Rip freed Source: Blood, Venous
Specimen Type: Blood
Specimen Date: 12/27/2022 10:26 AM
Result Date: 01/01/2023 11:01 AM
Result Status: Final result
Resulting Lab: LABORATORY [facility] [place]
[address]
[place] [address]

CULTURE

No growth

null Performing Location LABORATORY [facility] [place] - [address] [place] [address]
--- OUTSIDE RECORDS SUMMARY | 2023-05-22 15:03 | External Medical Summary ---
Author Name Unknown Address Unknown Organization K01:LABORATORY [facility] [place] - [address] [address] Laboratory Report Ordering Provider Test Date Status HENRIK KHANFATOUMATAANMOL 12/28/2022 09:18:00 Final Observation Date Value Abnormality Reference (Units ) Status BUN 12/28/2022 09:18:00 19 6-20 (mg/dL) Final Creatinine 12/28/2022 09:18:00 1.1 0.6-1.2 (mg/dL) Final Glomerular filtration rate/1.73 sq M.predicted [Volume Rate/Area] in Serum, Plasma or Blood by Creatinine-based formula (CKD-EPI) 12/28/2022 09:18:00 70 >=60 (mL/min) Final eGFR is calculated based on the CKD-EPI 2020 equation SODIUM 12/28/2022 09:18:00 137 135-146 (m mol/L) Final Potassium 12/28/2022 09:18:00 4.4 3.5-5.1 (m mol/L) Final Cl 12/28/2022 09:18:00 102 98-107 (mm ol/L) Final CO2 12/28/2022 09:18:00 24 22-32 (mmo l/L) Final Anion gap 12/28/2022 09:18:00 11 7-15 (mmol /L) Final Glucose 12/28/2022 09:18:00 120 70-120 (mg /dL) Final Calcium 12/28/2022 09:18:00 9.0 8.4-10.2 ( mg/dL) Final Performing Location LABORATORY [facility] [place] - [address] [place] [address]
--- OUTSIDE RECORDS SUMMARY | 2023-05-22 15:03 | External Medical Summary | Summary of Care ---
Author Name Unknown Organization [facility] Address [address] [facility] [place] [address] Phone [phone] Care Team Providers Care Starch Cooker Name Role Phone Chema Combs MD Primary Care Provider Reason for Referral * Precert (Within 10 days (routine)) - Closed Specialty Diagnoses / Procedures Referred By Shan adan Referred To Contact Radiology Diagnoses Abnormal CT of liver Abnormal findings on diagnostic imaging of gall bladder Procedures MRI LIVER W WO CONTRAST Sally Anaya PA-C [address] [place] [address] Referral ID Status Reason Start Date Expiration Date V isits Requested Visits Authorized [id number] Closed Precert 12/25/2022 06/24/2023 999 1 Reason for Visit * Precert (Within 10 days (routine)) - Closed Specialty Diagnoses / Procedures Referred By Shan adan Referred To Contact Radiology Diagnoses Abnormal CT of liver Abnormal findings on diagnostic imaging of gall bladder Procedures MRI LIVER W WO CONTRAST Sally Anaya PA-C [address] [place] [address] Referral ID Status Reason Start Date Expiration Date V isits Requested Visits Authorized [id number] Closed Precert 12/25/2022 06/24/2023 999 1 Encounter Details Date Type Department Care Team Description 12/26/2022 Hospital Encounter Radiology, [facility] [address] [facility] [place] [address] Arrived Allergies Active Allergy Reactions Severity Noted Date Comments Lisinopril Cough Low 08/18/2009 documented as of this encounter (statuses as of 12/27/2022) Medications Medication Sig Dispensed Refills Start Date End Date Status VITAMIN D 1000 UNITS PO CAPSIndications:V itamin D deficiency 2 capsule daily 60 Cap 11 05/14/2014 Active citalopram (CELEXA) 20 MG TabletIndications :Mood swings Take 1 Tab by mouth daily. 90 Tab 3 09/18/2016 Active Acetaminophen 500 MG Capsule Take 2 Capsules by mouth in the morning and 2 Capsules at noon and 2 Capsules before bedtime. 0 Active aspirin enteric coated 81 MG TBEC Take 1 Tablet by mouth in the morning. 0 Active Fluticasone-Umecl idin-Vilant 100-62.5-25 MCG/ACT Aerosol Powder Breath Activated Inhale 1 Puff by mouth. 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 30 Tab 5 03/25/2019 Active levalbuterol (XOPENEX) 1.25 MG/3ML nebulizer solution Inhale 1 Ampule via nebulizer 3 times a day. 5 05/01/2019 Active Albuterol Sulfate HFA 108 (90 Base) MCG/ACT Inhalation Aerosol Solution 0 04/12/2021 Active metFORMIN HCl ER 500 MG Oral Tablet Extended Release 24 Hour (Glucophage XR)Indications:Pr ediabetes Take by mouth 1 Tablet in the morning. 90 Tablet 3 01/17/2022 Active Atorvastatin Calcium 20 MG Oral Tablet (Lipitor)Indicati ons:Dyslipidemia, goal LDL below 100 Take by mouth 1 Tablet in the morning. 90 Tablet 3 01/17/2022 Active Gabapentin 300 MG Oral Capsule (Neurontin)Indica tions:Essential tremor 3 caps twice daily 540 Capsule 3 01/17/2022 Active Gabapentin 300 MG Oral Capsule (Neurontin) Taking 3 in AM and 3 in PM 0 Active Furosemide 20 MG Oral Tablet (Lasix)Indication s:Localized edema TAKE 2 TABLETS BY MOUTH EVERY DAY 180 Tablet 2 03/30/2022 Active dilTIAZem HCl ER Coated Beads 120 MG Oral Capsule Extended Release 24 Hour (Cardizem CD)Indications:HT N, goal below 150/90,PAF (paroxysmal atrial fibrillation) ([facility]) TAKE 1 CAPSULE BY MOUTH EVERY DAY 90 Capsule 3 06/28/2022 Active Eliquis 5 MG Oral Tablet (Apixaban)Indicat ions:PAF (paroxysmal atrial fibrillation) ([facility]) TAKE 1 TABLET BY MOUTH TWICE A DAY 180 Tablet 3 06/28/2022 Active Metoprolol Tartrate 50 MG Oral Tablet (Lopressor)Indica tions:HTN, goal below 150/90,PAF (paroxysmal atrial fibrillation) ([facility]) TAKE 1 TABLET BY MOUTH TWICE A DAY 180 Tablet 3 06/28/2022 Active Potassium Chloride ER 10 MEQ Oral Tablet Extended ReleaseIndication s:HTN, goal below 150/90 TAKE 1 TABLET BY MOUTH EVERY DAY 90 Tablet 1 12/14/2022 Active HYDROcodone Bit-Homatrop MBr 5-1.5 MG/5ML Oral Solution (Hycodan) Take 5 mL by mouth every 6 hours as needed for Cough. Initial prescription 60 mL 0 12/25/2022 Active documented as of this encounter (statuses as of 12/27/2022) Active Problems Problem Noted Date Prediabetes 01/02/2021 Overview: Per Prediabetes protocol Essential [...] as of this encounter (statuses as of 12/27/2022) Resolved Problems Problem Noted Date Resolved Date Prediabetes 04/06/2019 09/08/2020 Overview: Per Prediabetes protocol [...] as of this encounter (statuses as of 12/27/2022) Immunizations Name Administration Dates Next Due COVID-19 [...] drink = 0.6 oz pur e alcohol) No alcohol . Food Insecurity Answer Date Recorded Within the [...] on file documented as of this encounter Miscellaneous Notes * Result Encounter Note - Sally Anaya PA-C - 12/26/2022 12:30 PM EDT See TE 12/26/22 documented in this encounter Plan of Treatment Upcoming Encounters Date Type Specialty Care Team Description 01/02/2023 Office Visit Hematology Oncology Scout Huddleston MD [address] [facility] [place] [address] 01/23/2023 Office Visit Family Medicine Chema Combs MD [address] [place] [address] 09/19/2023 Office Visit Cardiology Prashant Ruiz, DO [address] [place] [address] Scheduled Procedures Name Priority Associated Diagnoses Date/Ti [...] 12/11/2022, 06/28, 07/06/2021, Additional history exists GFR 12/28/2023 12/27/2022, 11/24, 07/19/2022, Additional history exists O2 ASSESSMENT COMPLETED IN PAST YEAR FOR COPD 12/28/2023 12/27/2022 Colonoscopy 07/06/2026 07/06/2016, 07/06/2016 Colorectal Cancer Screening [...] 08/29/2016 LUNG CANCER SCREENING - USE SMARTSET 70127 Completed 10/01/2017 Zoster Vaccines Completed 12/14/2019, 09/24, 02/16/2013 GARDASIL-HPV IMMUNIZATION SERIES Aged Out No longer eligible based on patient's age to complete this topic Hepatitis B Aged Out No longer eligi ble based on patient's age to complete this topic documented as of this encounter Medical Devices Not on filedocumented as of this encounter Procedures Procedure Name Priority Date/Time Associated Diagnosis Comments MRI LIVER W WO CONTRAST Routine 12/26/2022 12:[address] of liver Abnormal findings on diagnostic imaging of gall bladder documented in this encounter Results * MRI LIVER W WO CONTRAST (12/26/2022 12:31 PM EDT) Anatomical Region Laterality Modality Abdomen Magnetic Resonan ce 12/26/2022 2:39 PM EDT Narrative 12/26/2022 2:36 PM EDT EXAM: MRI ABDOMEN WITHOUT AND WITH CONTRAST HISTORY: abnormal CT, mass of liver concerning for neoplasm COMPARISON: CT abdomen pelvis 12/21/2022 TECHNIQUE: Multiplanar multisequence MRI of the abdomen without and with intravenous contrast was performed and reviewed. CONTRAST: Gadavist intravenously. FINDINGS: LOWER CHEST: Unremarkable. LIVER: The liver is normal in size and morphology there is no evidence of hepatic steatosis. There are several rim enhancing lesion in the liver surrounding the gallbladder fossa which demonstrate mild restricted diffusion, are hypointense to adjacent liver on T1 weighted imaging, and mildly hyperintense to the spleen on T2 weighted imaging. The largest of these include a 5.8 x 4.9 cm lesion centered in segment 4 B (image 42 series 20) with thick enhancing wall but no significant progressive central enhancement on delayed postcontrast images. There is also a 4.8 x 3.3 cm bilobed lesion in the medial aspect of the inferior right hepatic lobe on image 59 series 20, and a couple tiny lesions more superiorly.. BILIARY TREE: No intrahepatic or extrahepatic bile duct dilation. No bile duct filling defect. GALLBLADDER: The gallbladder is contracted around multiple stones. PANCREAS: The pancreas is normal in size and signal intensity. There is no main pancreatic duct dilation. SPLEEN: Mildly enlarged measuring 13.3 cm in length. ADRENAL GLANDS: Normal. KIDNEYS: The kidneys are normal in size without hydronephrosis or suspicious mass. BOWEL: The included bowel is normal in caliber. PERITONEUM: No free fluid. LYMPH NODES: There are no enlarged or suspicious abdominal lymph nodes. VESSELS: The abdominal aorta and the origins of the major branches are patent and normal in caliber. The portal venous system is patent. The inferior vena cava, hepatic veins, and renal veins are patent. ABDOMINAL WALL/SOFT TISSUES: There are few prominent right upper quadrant lymph nodes. BONES: Unremarkable. IMPRESSION: 1. Rim enhancing liver lesions clustered around the gallbladder fossa are most suspicious for abscesses/infection such as from prior perforated cholecystitis. The gallbladder is currently contracted around several calculi. Malignancy is possible but considered less likely. Procedure Note Raul Miller MD - 12/26/2022 EXAM: MRI ABDOMEN WITHOUT AND WITH CONTRAST HISTORY: abnormal CT, mass of liver concerning for neoplasm COMPARISON: CT abdomen pelvis 12/21/2022 TECHNIQUE: Multiplanar multisequence MRI of the abdomen without and with intravenouscontrast was performed and reviewed. CONTRAST: Gadavist intravenously. FINDINGS: LOWER CHEST: Unremarkable. LIVER: The liver is normal in size and morphology there is no evidence ofhepatic steatosis. There are several rim enhancing lesion in the liver surrounding thegallbladder fossa which demonstrate mild restricted diffusion, arehypointense to adjacent liver on T1 weighted imaging, and mildlyhyperintense to the spleen on T2 weighted imaging. The largest of theseinclude a 5.8 x 4.9 cm lesion centered in segment 4 B (image 42 series 20)with thick enhancing wall but no significant progressive centralenhancement on delayed postcontrast images. There is also a 4.8 x 3.3 cmbilobed lesion in the medial aspect of the inferior right hepatic lobe onimage 59 series 20, and a couple tiny lesions more superiorly.. BILIARY TREE: No intrahepatic or extrahepatic bile duct dilation. No bileduct filling defect. GALLBLADDER: The gallbladder is contracted around multiple stones. PANCREAS: The pancreas is normal in size and signal intensity. There isno main pancreatic duct dilation. SPLEEN: Mildly enlarged measuring 13.3 cm in length. ADRENAL GLANDS: Normal. KIDNEYS: The kidneys are normal in size without hydronephrosis orsuspicious mass. BOWEL: The included bowel is normal in caliber. PERITONEUM: No free fluid. LYMPH NODES: There are no enlarged or suspicious abdominal lymph nodes. VESSELS: The abdominal aorta and the origins of the major branches arepatent and normal in caliber. The portal venous system is patent. Theinferior vena cava, hepatic veins, and renal veins are patent. ABDOMINAL WALL/SOFT TISSUES: There are few prominent right upper quadrantlymph nodes. BONES: Unremarkable. IMPRESSION: 1. Rim enhancing liver lesions clustered around the gallbladder fossa aremost suspicious for abscesses/infection such as from prior perforatedcholecystitis. The gallbladder is currently contracted around severalcalculi. Malignancy is possible but considered less likely. Sally Anaya PA-C RAD MRI-MRA documented in this encounter Visit Diagnoses Diagnosis Abnormal CT of liver Nonspecific (abnormal) findings on radiological and other examination of biliary tract Abnormal findings on diagnostic imaging of gall bladder Nonspecific (abnormal) findings on radiological and other examination of biliary tract documented in this encounter Administered Medications Inactive Administered Medications - up to 3 most recent administrations Medication Order MAR Action Action Date Dose Rate Site gadobutrol (Gadavist) inj 11 mL 11 mL (rounded from 10.95 mL = 0.1 mL/kg 109.5 kg), Intravenous, ONCE, On Sat12/26/22 at 1225, For 1 dose, Radiology Medication Routing (Non-IR) Given 12/26/2022 12:45 PM EDT 10 mL documented in this encounter Care Teams Starch Cooker Relationship Specialty Start Date End Date Chema Combs MD [address] [place] [address] PCP - General Family Medicine 07/02/18 documented as of this encounter
--- OUTSIDE RECORDS SUMMARY | 2023-05-22 15:03 | External Medical Summary ---
Author Name Unknown Address Unknown Organization K01:LABORATORY [place] [address] [facility] [address] [place] [address] Laboratory Report Ordering Provider Test Date Status CALE WHEELER 12/27/2022 10:26:00 Final Observation Date Value Abnormality Reference (Units ) Status WBC, Total 12/27/2022 10:26:00 25.46 Above high normal 4.00-10.80 (K/uL) Final RBC 12/27/2022 10:26:00 5.12 4.50-5.25 (M/uL) Final Hemoglobin 12/27/2022 10:26:00 15.6 14.0-16.8 (g/dL) Final HCT 12/27/2022 10:26:00 47.1 40.0-48.4 (%) Final MCV 12/27/2022 10:26:00 92.0 82.0-99.5 (fL) Final MCH 12/27/2022 10:26:00 30.5 27.0-34.0 (pg) Final MCHC 12/27/2022 10:26:00 33.1 32.0-36.0 (g/dL) Final RDW 12/27/2022 10:26:00 14.0 11.5-15.5 (%) Final Platelets 12/27/2022 10:26:00 335 140-400 (K/uL) Final MPV 12/27/2022 10:26:00 9.2 6.6-11.1 (fL) Final Nucleated erythrocytes/100 leukocytes [Ratio] in Blood by Automated count 12/27/2022 10:26:00 0 <=0 (/100 WBCs) Final Performing Location LABORATORY [facility] [place] - [address] [place] [address]
--- OUTSIDE RECORDS SUMMARY | 2023-05-22 15:03 | External Medical Summary | Summary of Care ---
Author Name Unknown Organization [facility] Address [address] [facility] [place] [address] Phone [phone] Care Team Providers Care Corrugated Box Machine Operator Name Role Phone Chema Combs MD Primary Care Provider [phone] Reason for Referral * Evaluate & Treat - Unlimited Visits (Within 24 hrs (call dept; emergent)) - Pending Review Specialty Diagnoses / Procedures Referred By Shan t Referred To Contact General Surgery Diagnoses Liver abscess Perforated gallbladder Sally Anaya PA-C [address] [place] [id number] Referral ID Status Reason Start Date Expiration Date Visits Requested Visits Authorized [id number] Pending Review Specialty Services Required 12/26/2022 999 999 Question Answer Referral Priority Within 24 hrs (call dept; emergent) What condition is the patient being seen for? General Surgery Conditions What condition is the patient being seen for? Acute Pain/Urgent Comments MRI liver with infection and abscess around the gallbladder, pt is symptomatic, hx of leukemia currently in remission Reason for Visit * Reason Onset Date Comments Test Results 12/26/2022 MRI Encounter Details Date Type Department Care Team Description 12/26/2022 Telephone Family Practice [facility] [place] [address] [place] [id number] Sally Anaya PA-C [address] [place] [id number] Test Results (MRI) Allergies Active Allergy Reactions Severity Noted Date Comments Lisinopril Cough Low 08/18/2009 documented as of this encounter (statuses as of 12/26/2022) Medications Medication Sig Dispensed Refills Start Date [...] N, goal below 150/90,PAF (paroxysmal atrial fibrillation) (HCC) TAKE 1 CAPSULE BY MOUTH EVERY DAY 90 Capsule 3 06/28/2022 Active Eliquis 5 MG Oral Tablet (Apixaban)Indicat ions:PAF (paroxysmal atrial fibrillation) (HCC) TAKE 1 TABLET BY MOUTH TWICE A DAY 180 Tablet 3 06/28/2022 Active Metoprolol Tartrate 50 MG Oral Tablet (Lopressor)Indica tions:HTN, goal below 150/90,PAF (paroxysmal atrial fibrillation) (HCC) [...] as of this encounter (statuses as of 12/26/2022) Active Problems Problem Noted Date Prediabetes 01/02/2021 [...] as of this encounter (statuses as of 12/26/2022) Resolved Problems Problem Noted Date Resolved Date [...] 02/06/2008 06/16/2015 PVD (PERIPHERAL VASCULAR DISEASE) PERIPH VAS EMMANUEL MADERA,UNSP 02/06/2008 01/02/2012 Screening for prostate cancer 02/06/2008 Overview: Resolved per Screening Diagnosis Protocol #6 Tobacco use disorder 02/06/2008 01/02/2012 Osteoporosis 02/06/2008 06/16/2015 PAIN IN LIMB, LEFT DISTAL GREAT TOE 02/06/2008 06/16/2015 HTN, goal below 140/90 3 HTN, goal below 140/80 5 documented as of this encounter (statuses as of 12/26/2022) Immunizations Name Administration Dates Next Due COVID-19 [...] encounter Miscellaneous Notes * Telephone Encounter - Sally Anaya PA-C - 12/26/2022 4:41 PM EDT Discussed with Dr. Youssef. Nothing additional at this time. * Telephone Encounter - Vicky Bull RN - 12/26/2022 4:11 PM EDT Provider to address: Baljit Correa did not talk with anyone other than scheduling to get him in with [facility]. He is scheduled to see Dr. Pearl tomorrow 12/27/22 @ 9:30am. Unsure if there is anything he should be doing in meantime for infection. Reason for Call: Test Results (MRI) Contact: Telephone Call Contact Type: Follow-up Outcome: Call placed to patient, made him aware of Sally Anaya's message. He verbalized understanding and is agreeable to seeing general surgery. Call placed to [facility] general surgery, they areable to get patient in tomorrow 12/27/22 @ 9:30am with Dr. Pearl. Call placed back to patient to make him aware, he verbalized understanding. Face to face time spent with Patient (minutes): 0 Total Time including non face to face (minutes): 30 * Telephone Encounter - Sally Anaya PA-C - 12/26/2022 3:33 PM EDT MRI of liver shows infection and abscess around the gallbladder. He needs to see surgery STAT. Given the degree of infection and hx of leukemia, he may require [place] appointment. Please call patient and inform, and please schedule a surgery appt [place]. Also, ask surgery if thereis anything they would want us to do in the meantime for the infection. Case discussed in person with Vicky Bull RN. documented in this encounter Plan of Treatment Upcoming Encounters Date Type Specialty Care Team Description 12/27/2022 Office Visit General Surgery Juanito Pearl MD [address] [place] [address] 01/02/2023 Office Visit Hematology Oncology Scout Huddleston MD [address] [place] [address] 01/23/2023 Office Visit Family Medicine Chema Combs MD [address] [place] [address] 09/19/2023 Office Visit Cardiology Prashant Ruiz, DO [address] [place] [address] Scheduled Procedures Name Priority Associated Diagnoses Date/Ti me COLONOSCOPY FLEXIBLE PROXIMA L DIAGNOSTIC Recall Encounter for screening colonoscopy Scheduled Referrals Name Type Priority Associated Diagnoses Orde r Schedule SURGERY REFERRAL OP Referral Within 24 hr s (call dept; emergent) Liver abscess Perforated gallbladder Ordered: 12/26/2022 Health Maintenance Due Date Last Done Comments [...] 04/13/2020, Additional history exists B-12 12/12/2023 12/11/2022 GFR 12/12/2023 12/11/2022, 06/28, 06/19/2022, Additional history exists HbA1c 12/12/2023 12/11/2022, 06/28, 07/06/2021, Additional history exists O2 ASSESSMENT COMPLETED IN PAST YEAR FOR COPD 12/26/2023 12/25/2022 Colonoscopy 07/06/2026 07/06/2016, 07/06/2016 Colorectal Cancer Screening [...] 08/29/2016 LUNG CANCER SCREENING - USE SMARTSET 88406 Completed 10/01/2017 Zoster Vaccines Completed 12/14/2019, 09/24, 02/16/2013 GARDASIL-HPV IMMUNIZATION SERIES Aged Out No longer eligible based on patient's age to complete this topic Hepatitis B Aged Out No longer eligi ble based on patient's age to complete this topic documented as of this encounter Medical Devices Not on filedocumented as of this encounter Visit Diagnoses Diagnosis Liver abscess- Primary Abscess of liver Perforated gallbladder Perforation of gallbladder documented in this encounter Care Teams Corrugated Box Machine Operator Relationship Specialty Start Date End Date Chema Combs MD [address] [place], [place] [id number] PCP - General Family Medicine 07/02/18 documented as of this encounter
--- OUTSIDE RECORDS SUMMARY | 2023-05-22 15:03 | External Medical Summary ---
Author Name Unknown Address Unknown Organization K01:LABORATORY [facility] [place] - [address] [place] [address] Laboratory Report Ordering Provider Test Date Status CALE WHEELER 12/27/2022 10:26:00 Final Observation Date Value Abnormality Reference (Units ) Status BUN 12/27/2022 10:26:00 21 Above high normal 6-20 (mg/dL) Final Creatinine 12/27/2022 10:26:00 1.0 0.6-1.2 (mg/dL) Final Glomerular filtration rate/1.73 sq M.predicted [Volume Rate/Area] in Serum, Plasma or Blood by Creatinine-based formula (CKD-EPI) 12/27/2022 10:26:00 84 >=60 (mL/min) Final eGFR is calculated based on the CKD-EPI 2020 equation SODIUM 12/27/2022 10:26:00 135 135-146 (m mol/L) Final Potassium 12/27/2022 10:26:00 4.2 3.5-5.1 (m mol/L) Final Cl 12/27/2022 10:26:00 100 98-107 (mm ol/L) Final CO2 12/27/2022 10:26:00 23 22-32 (mmo l/L) Final Anion gap 12/27/2022 10:26:00 12 7-15 (mmol /L) Final Glucose 12/27/2022 10:26:00 136 Above high normal 70 -120 (mg/dL) Final Albumin 12/27/2022 10:26:00 4.0 3.8-5.0 (g /dL) Final AST (Aspartate aminotransferase) 12/27/2022 10:26:00 49 10-50 (U/L) Fin al Alk Phos 12/27/2022 10:26:00 312 Above high normal 35 -130 (U/L) Final Bilirubin, Total 12/27/2022 10:26:00 0.8 <=1 .2 (mg/dL) Final Calcium 12/27/2022 10:26:00 9.6 8.4-10.2 ( mg/dL) Final Protein 12/27/2022 10:26:00 6.9 6.0-8.3 (g /dL) Final ALT (Alanine aminotransferase) 12/27/2022 10:26:00 71 Above high normal 10-50 (U/L) Final Performing Location LABORATORY [facility] [place] - [address] [facility] [address]
--- OUTSIDE RECORDS SUMMARY | 2023-05-22 15:03 | External Medical Summary | Summary of Care ---
Author Name Unknown Organization [facility] Address [address] [facility] [place] [address] Phone [phone] Care Team Providers Care Tube Closing Machine Operator Name Role Phone Chema Combs MD Primary Care Provider [phone] Reason for Referral * Evaluate & Treat - Unlimited Visits (Within 24 hrs (call dept; emergent)) - Pending Review Specialty Diagnoses / Procedures Referred By Shan t Referred To Contact General Surgery Diagnoses Liver abscess Perforated gallbladder Sally Anaya PA-C [address] [place] [address] Referral ID Status Reason Start Date Expiration Date Visits Requested Visits Authorized [id number] Pending Review Specialty Services Required 12/26/2022 999 [...] State [place]ese[place] [address] [place] [id number] Sally Anaya PA-C [address] [place] [id number] Test Results (MRI) Allergies Active Allergy Reactions [...] and hx of leukemia, he may require [place] appointment. Please call patient and inform, and [...] Hematology Oncology Scout Huddleston MD [address] [place] [address] 01/23/2023 Office Visit Family Medicine Chema Combs MD [address] [place] [address] 09/19/2023 Office Visit Cardiology Prashant Ruiz, DO [address] [place] [address] Scheduled Procedures Name Priority Associated Diagnoses Date/Ti [...] 08/29/2016 LUNG CANCER SCREENING - USE SMARTSET 38879 Completed 10/01/2017 Zoster Vaccines Completed 12/14/2019, 09/24, [...] gallbladder documented in this encounter Care Teams Tube Closing Machine Operator Relationship Specialty Start Date End Date Chema Combs MD [address] [place] [address] PCP - General Family Medicine 07/02/18 documented as of this encounter
--- OUTSIDE RECORDS SUMMARY | 2023-05-22 15:03 | External Medical Summary ---
Author Name Unknown Address Unknown Organization [id number]:[place] [facility] [place] [address] [place] [id number] Laboratory Report Ordering Provider Test Date Status CALE WHEELER 12/27/2022 10:26:00 Final Less than 0.5 ng/mL: Low ris k for progression to sepsis. Review patients condition for localized infections.

0.5 to 2.0 ng/mL: Intermediate risk for progresion to sepsis. Review underlying conditions. Recommend repeat PCT after 6 hours has elapsed.

Greater than 2.0 ng/mL: high risk for progression to sepsis unless other causes are known. Observation Date Value Abnormality Reference (Units ) Status Procalcitonin [Mass/volume] in Serum or Plasma by Immunoassay 12/27/2022 10:26:00 0.08 <0.10 (ng/mL) Final Performing Location [facility] [place] [address] [place] [id number]
--- OUTSIDE RECORDS SUMMARY | 2023-05-22 15:03 | External Medical Summary ---
Author Name Unknown Address Unknown Organization K01[place] [facility] [place] [address] [place] [id number] Laboratory Report Ordering Provider Test Date Status CALE WHEELER 12/27/2022 10:26:00 Final Observation Date Value Abnormality Reference (Units ) Status Lactic Acid 12/27/2022 10:26:00 2.3 Above high normal 0.4-2.0 (mmol/L) Final Performing Location [place] [facility] [place] [address] [place] [id number]
--- OUTSIDE RECORDS SUMMARY | 2023-05-22 15:03 | External Medical Summary | Summary of Care ---
Author Name Unknown Organization [facility] Address [address] [facility] [address] Phone [phone] Care Team Providers Care Conveyor Man Name Role Phone Chema Combs MD Primary Care Provider [phone] Reason for Visit * Reason Comments Follow Up Encounter Details Date Type Department Care Team Description 12/25/2022 Office Visit [facility] [address] [place] [address] William Ch PA-C [address] [place] [id number] Liver mass*; Abdominal pain, generalized; Acute cough Allergies Active Allergy Reactions Severity Noted Date Comments Lisinopril Cough Low 08/18/2009 documented as of this encounter (statuses as of 12/25/2022) Medications Medication Sig Dispensed Refills Start Date [...] N, goal below 150/90,PAF (paroxysmal atrial fibrillation) ([facility]) TAKE 1 CAPSULE BY MOUTH EVERY DAY 90 Capsule 3 06/28/2022 Active Eliquis 5 MG Oral Tablet (Apixaban)Indicat ions:PAF (paroxysmal atrial fibrillation) ([facility]) TAKE 1 TABLET BY MOUTH TWICE A DAY 180 Tablet 3 06/28/2022 Active Metoprolol Tartrate 50 MG Oral Tablet (Lopressor)Indica tions:HTN, goal below 150/90,PAF (paroxysmal atrial fibrillation) ([facility]) TAKE 1 TABLET BY MOUTH TWICE [...] as of this encounter (statuses as of 12/25/2022) Active Problems Problem Noted Date Prediabetes 01/02/2021 [...] as of this encounter (statuses as of 12/25/2022) Resolved Problems Problem Noted Date Resolved Date [...] as of this encounter (statuses as of 12/25/2022) Immunizations Name Administration Dates Next Due COVID-19 [...] Sign Reading Time Taken Comments Blood Pressure 128/84 12/25/2022 12:09 PM EDT Pulse 92 12/25/2022 12:09 PM EDT Temperature 36.8 C (98.3 F) 12/25/2022 12:09 PM E DT Respiratory Rate 20 12/25/2022 12:09 PM EDT Oxygen Saturation 99% 12/25/2022 12:09 PM EDT Inhaled Oxygen Concentration - - Weight 109.5 kg (241 lb 8 oz) 12/25/2022 12:09 P M EDT Height - - Body Mass Index 32.75 06/04/2022 3:16 PM EST documented in this encounter Patient Instructions * Patient Instructions* William Ch PA-C - 12/25/2022 12:48 PM EDT Use 5 mL of Hycodan cough syrup every 6 hours as needed for cough. Continue other medications as prescribed. 15-30 minutes before your MRI consider using 2 puffs of her albuterol inhaler. I will contact you with your MRI results and any referrals that are needed. Call for any new/concerning symptoms. documented in this encounter Progress Notes * William Ch PA-C - 12/25/2022 2:14 PM EDT Images from the original note were not included. History of Present Illness Ronni Fields Jr. is a 72 year old male that presents for Follow Up Patient presents to the clinic for follow-up accompanied by his and grandchild. I initially saw the patient on November 29 and he was having right mid upper quadrant abdominal pain that was resolving. He felt was related to over eating strawberries. Did follow-up on December 18 and felt his pain was now more severe. 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 At this appointment I did order and IV contrast abdominal/pelvic CT and the radiologist impression was: Ill-defined hepatic masses near the gallbladder, which has an abnormal appearance, raising the possibility of hepatic metastases and possible primary gallbladder malignancy. Radiologist recommended a right upper quadrant ultrasound or MRI; I ordered the ultrasound and the radiologist impression is: Shadowing stones are present within the gallbladder. No definite ultrasound evidence of acute cholecystitis. The markedly abnormal area in the liver adjacent to the gallbladder seen on recent CT which is highly concerning for neoplastic process is suboptimally evaluated onultrasound. Radiologist's suggested MRI follow-up and this is scheduled for tomorrow. Patient presents today and reports that he is still having ongoing significant right upper quadrantpain. He reports although the pain is constant it does wax and wane in intensity to moderate and sometimes severe. He is not identified any causes of why his pain becomes severe. She denies any associated symptoms including fevers, chills, sweats, decreased appetite, nausea, vomiting, diarrhea and he has not observed his stools for any blood or melanotic stools. Additionally patient has been having upper respiratory tract symptoms with cough and congestion. His cough is productive of a clear sputum. He denies any bereket shortness of breath or wheezing. He didfeel like his cough has been worsening over the last few days and he requested medications to help control his cough for his MRI tomorrow. I am going to give him a short course of Hycodan cough syrupfor his cough; patient was warned this was a narcotic and given appropriate precautions. Physical Exam Vitals: 12/25/22 1209 Temp: 36.8 C (98.3 F) Pulse: 92 Resp: 20 SpO2: 99% BP: 128/84 Physical Exam Vitals and nursing note reviewed. Constitutional: General: He is not in acute distress. Appearance: Normal appearance. He is obese. He is not toxic-appearing. HENT: Head: Normocephalic and atraumatic. Nose: Congestion present. No rhinorrhea. Mouth/Throat: Mouth: Mucous membranes are moist. Pharynx: Oropharynx is clear. No oropharyngeal exudate or posterior oropharyngeal erythema. Eyes: Extraocular Movements: Extraocular movements intact. Conjunctiva/sclera: Conjunctivae normal. Pupils: Pupils are equal, round, and reactive to light. Neck: Vascular: No carotid bruit. Cardiovascular: Rate and Rhythm: Normal rate and regular rhythm. Heart sounds: Normal heart sounds. No murmur heard. No gallop. Pulmonary: Effort: Pulmonary effort is normal. No respiratory distress. Breath sounds: Normal breath sounds. No wheezing or rhonchi. Comments: Nasal cannula oxygen on the patient. Chest: Chest wall: No tenderness. Abdominal: General: Bowel sounds are normal. There is no distension. Palpations: Abdomen is soft. There is no mass. Tenderness: There is abdominal tenderness. There is no right CVA tenderness, left CVA tenderness, guarding or rebound. Hernia: No hernia is present. Musculoskeletal: Cervical back: Normal range of motion and neck supple. No rigidity. Right lower leg: No edema. Left lower leg: No edema. Lymphadenopathy: Cervical: No cervical adenopathy. Skin: General: Skin is warm and dry. Capillary Refill: Capillary refill takes less than 2 seconds. Neurological: General: No focal deficit present. Mental Status: He is alert and oriented to person, place, and time. Mental status is at baseline. Cranial Nerves: No cranial nerve deficit. Coordination: Coordination normal. Gait: Gait normal. Psychiatric: Mood and Affect: Mood normal. Behavior: Behavior normal. Thought Content: Thought content normal. Judgment: Judgment normal. Assessment and Plan Liver mass Abdominal pain, generalized Acute cough Patient Instructions Use 5 mL of Hycodan cough syrup every 6 hours as needed for cough. Continue other medications as prescribed. 15-30 minutes before your MRI consider using 2 puffs of her albuterol inhaler. I will contact you with your MRI results and any referrals that are needed. Call for any new/concerning symptoms. Wrap-Up Follow Up: Return if symptoms worsen or fail to improve. Time: I spent a total of 20-29 minutes (exact time 25 mins) on the date of service in preparation, delivery, and documentation of the care provided to Jh Fields Jr. excluding any time spent in theperformance of separately billed services. documented in this encounter Nursing Notes * JESSICA Levin - 12/25/2022 12:09 PM EDT The patient has been properly identified by confirmation of name and date of . Chief Complaint Patient presents with Follow Up documented in this encounter Plan of Treatment Upcoming Encounters Date Type Specialty Care Team Description 12/26/2022 Hospital Encounter Radiology 01/02/2023 Office Visit Hematology Oncology Scout Huddleston MD [address] [place] [address] 01/23/2023 Office Visit Family Medicine Chema Combs MD [address] [place] [address] 09/19/2023 Office Visit Cardiology Prashant Ruiz DO [address] [place] [address] Scheduled Procedures Name Priority Associated Diagnoses Date/Ti [...] 08/29/2016 LUNG CANCER SCREENING - USE SMARTSET [id number] Completed 10/01/2017 Zoster Vaccines Completed 12/14/2019, 09/24, [...] Liver mass- Primary Unspecified disorder of liver Abdominal pain, generalized Acute cough documented in this encounter Care Teams Conveyor Man Relationship Specialty Start Date End Date Chema Combs MD [address], [place] [phone] PCP - General Family Medicine 07/02/18 documented as of this encounter
--- OUTSIDE RECORDS SUMMARY | 2023-05-22 15:03 | External Medical Summary ---
Author Name Unknown Address Unknown Organization K01[place] [facility] [place] [facility] [address] [place] [id number] Laboratory Report Ordering Provider Test Date Status BRAYDEN KHAN 12/28/2022 09:18:00 Final Observation Date Value Abnormality Reference (Units ) Status WBC, Total 12/28/2022 09:18:00 19.98 Above high normal 4.00-10.80 (K/uL) Final RBC 12/28/2022 09:18:00 4.66 4.50-5.25 (M/uL) Final Hemoglobin 12/28/2022 09:18:00 13.9 Below low normal 14.0-16.8 (g/dL) Final HCT 12/28/2022 09:18:00 43.0 40.0-48.4 (%) Final MCV 12/28/2022 09:18:00 92.3 82.0-99.5 (fL) Final MCH 12/28/2022 09:18:00 29.8 27.0-34.0 (pg) Final MCHC 12/28/2022 09:18:00 32.3 32.0-36.0 (g/dL) Final RDW 12/28/2022 09:18:00 14.3 11.5-15.5 (%) Final Platelets 12/28/2022 09:18:00 318 140-400 (K/uL) Final MPV 12/28/2022 09:18:00 9.1 6.6-11.1 (fL) Final Nucleated erythrocytes/100 leukocytes [Ratio] in Blood by Automated count 12/28/2022 09:18:00 0 <=0 (/100 WBCs) Final Performing Location [place] [facility] [place] [address] [place] [id number]
--- OUTSIDE RECORDS SUMMARY | 2023-05-22 15:03 | External Medical Summary ---
Author Name Unknown Address Unknown Organization K01:[facility]ORY [facility] [place] [address] [id number] Laboratory Report Ordering Provider Test Date Status LIAMSILVANAERON 12/27/2022 10:26:00 Final Observation Date Value Abnormality Reference (Units ) Status CRP, low-sensitivity 12/27/2022 10:26:00 21 Above high normal <=5 (mg/L) Final Performing Location LABORATORY [facility] [place] - [address] [place] [address]
--- OUTSIDE RECORDS SUMMARY | 2023-05-22 15:03 | External Medical Summary | Summary of Care ---
Author Name Unknown Organization [facility] Address [address] [facility] [place] [address] Phone [phone] Care Team Providers Care Director Vaccine Name Role Phone Chema Combs MD Primary Care Provider [phone] Reason for Referral * Evaluate & Treat - Unlimited Visits (Within 24 hrs (call dept; emergent)) - Pending Review Specialty Diagnoses / Procedures Referred By Shan t Referred To Contact General Surgery Diagnoses Liver abscess Perforated gallbladder Sally Anaya PA-C [address] [place] [id number] Referral ID Status Reason Start Date Expiration Date Visits Requested Visits Authorized [id number] Pending Review Specialty Services Required 12/26/2022 999 [...] State Desean Marcus [address] [place] [id number] Sally Anaya PA-C [address] [place] [id number] Test Results (MRI) Allergies Active Allergy Reactions [...] encounter Miscellaneous Notes * Telephone Encounter - Vicky Bull RN - 12/26/2022 4:11 PM EDT Provider to address: Baljit Correa did not talk with anyone other than scheduling to get him in with [facility]. He is scheduled to see Dr. Pearl tomorrow 12/27/22 @ 9:30am. Unsure if there is anything he should be doing in meantime for infection. Reason for Call: Test Results (MRI) Contact: Telephone Call Contact Type: Follow-up Outcome: Call placed to patient, made him aware of Sally Anaya's message. He verbalized understanding and is agreeable to seeing general surgery. Call placed to [facility] general surgery, they areable to get [...] and hx of leukemia, he may require [place] appointment. Please call patient and inform, and [...] Surgery Juanito Pearl MD [address] [place] [address] 01/02/2023 Office Visit Hematology Oncology Scout Huddleston MD [address] [facility] [place] [address] 01/23/2023 Office Visit Family Medicine Chema Combs MD [address] [place] [address] 09/19/2023 Office Visit Cardiology Prashant Ruiz, DO [address] [place] [address] Scheduled Procedures Name Priority Associated Diagnoses Date/Ti [...] 08/29/2016 LUNG CANCER SCREENING - USE SMARTSET [id number] Completed 10/01/2017 Zoster Vaccines Completed 12/14/2019, 09/24, [...] gallbladder documented in this encounter Care Teams Director Vaccine Relationship Specialty Start Date End Date Chema Combs MD [address], [place] [phone] PCP - General Family Medicine 07/02/18 documented as of this encounter
--- OUTSIDE RECORDS SUMMARY | 2023-05-22 15:03 | External Medical Summary ---
Author Name Unknown Address Unknown Organization K01[place] [facility] [place] [address] [place] [id number] Laboratory Report Ordering Provider Test Date Status CALE WHEELER 12/27/2022 10:29:00 Final Observation Date Value Abnormality Reference (Units ) Status Bacteria identified in Unspecified specimen by Culture 12/27/2022 10:29:00 No growth Final Test: Culture, Blood (Site 2 )
Specimen Source: Blood, Venous
Specimen Type: Blood
Specimen Date: 12/27/2022 10:29 AM
Result Date: 01/01/2023 11:01 AM
Result Status: Final result
Resulting Lab: [facility] [facility] [place]
[address]
[place] [id number]

CULTURE

No growth

null Performing Location [place] [facility] [place] [address] [place] [id number]
--- OUTSIDE RECORDS SUMMARY | 2023-05-22 15:04 | External Medical Summary | Summary of Care ---
Author Name Unknown Organization [facility] Address [address] [facility] [place] [address] Phone [phone] Care Team Providers Care Shift Leader Name Role Phone Chema Combs MD Primary Care Provider [phone] Reason for Referral * Precert (Within 10 days (routine)) - Pending Review Specialty Diagnoses / Procedures Referred By Contjuan t Referred To Contact Radiology Diagnoses Abdominal pain, generalized Procedures CT ABD/PELVIS W IV CONTRAST - WO ORAL CONTRAST William Ch PA-C [address] [place] [address] Referral ID Status Reason Start Date Expiration Date V isits Requested Visits Authorized [id number] Pending Review 12/18/2022 999 999 Reason for Visit * Reason Comments Acute Patient is here toda y due to stomach discomfort on the right lower quadrant. Patient states there is times when he coughs he has to hold at the spot. Encounter Details Date Type Department Care Team Description 12/18/2022 Office Visit [facility] [address] [place] [address] William Ch PA-C [address] [place] [id number] Abdominal pain, generalized* Allergies Active Allergy Reactions Severity Noted Date Comments Lisinopril Cough Low 08/18/2009 documented as of this encounter (statuses as of 12/18/2022) Medications Medication Sig Dispensed Refills Start Date End Date Status VITAMIN D 1000 UNITS PO CAPSIndications:Vit mosley D deficiency 2 capsule daily 60 Cap 11 05/14/2014 Active citalopram (CELEXA) 20 MG TabletIndications:M ood swings Take 1 Tab by mouth daily. [...] mouth. 0 Active allopurinol (ZYLOPRIM) 100 MG TabletIndications:C [...] 01/17/2022 Active Gabapentin 300 MG Oral Capsule (Neurontin)Indicati ons:Essential tremor 3 caps twice daily 540 Capsule 3 01/17/2022 Active Gabapentin 300 MG Oral Capsule (Neurontin) Taking 3 in AM and 3 in PM 0 Active Furosemide 20 MG Oral Tablet (Lasix)Indications: Localized edema TAKE 2 TABLETS BY MOUTH EVERY [...] Chloride ER 10 MEQ Oral Tablet Extended ReleaseIndications: HTN, goal below 150/90 TAKE 1 TABLET BY MOUTH EVERY DAY 90 Tablet 1 12/14/2022 Active documented as of this encounter (statuses as of 12/18/2022) Active Problems Problem Noted Date Prediabetes 01/02/2021 [...] as of this encounter (statuses as of 12/18/2022) Resolved Problems Problem Noted Date Resolved Date [...] as of this encounter (statuses as of 12/18/2022) Immunizations Name Administration Dates Next Due COVID-19 [...] Sign Reading Time Taken Comments Blood Pressure 132/78 12/18/2022 2:31 PM EDT Pulse 82 12/18/2022 2:31 PM EDT Temperature 37 C (98.6 F) 12/18/2022 2:31 PM EDT Respiratory Rate 18 12/18/2022 2:31 PM EDT Oxygen Saturation 97% 12/18/2022 2:31 PM EDT Inhaled Oxygen Concentration - - Weight 109.8 kg (242 lb) 12/18/2022 2:31 PM EDT Height - - Body Mass Index 32.82 06/04/2022 3:16 PM EST documented in this encounter Patient Instructions * Patient Instructions* William Ch PA-C - 12/18/2022 3:09 PM EDT Continue current medication as prescribed. Use 650 mg of Tylenol/acetaminophen every 6 hours as needed for pain. Follow-up for CT scan of her abdomen and we will follow-up a couple days after CT to review the results. Call for worsening symptoms or any new/concerning symptoms. documented in this encounter Progress Notes * William Ch PA-C - 12/18/2022 3:09 PM EDT Images from the original note were not included. History of Present Illness Ronni Fields Jr. is a 72 year old male that presents for Acute (Patient is here today due to stomach discomfort on the right lower quadrant. Patient states there is times when he coughs he has to hold at the spot. ) Patient presents to the clinic for an acute appointment with complaints of right-sided abdominal pain. I did see patient on November 29 and he was reporting right mid quadrant abdominal pain after eating alot of strawberries that had significantly improved just prior to arrival at the clinic. On his physical examination he had some mild tenderness in this area. He deferred any additional testing at that time. Patient comes back and reports he has been having ongoing mild discomfort in the same area. His discomfort is nonradiating. Worsens with a cough and minimally with palpation. Denies any associated nausea, vomiting, diarrhea, rectal bleeding, black/tarry stools. He is status post appendectomy from a child and his pain is significantly lower than the liver gallbladder area. Recent laboratory testing shows an elevated white blood cell count related to his lymphocytic leukemia. He had a normal CMP and the remaining of his CBC was normal. Patient has been using acetaminophen for pain and has not seen any significant improvement. Physical Exam Vitals: 12/18/22 1431 Temp: 37 C (98.6 F) Pulse: 82 Resp: 18 SpO2: 97% BP: 132/78 Physical Exam Vitals and nursing note reviewed. Constitutional: General: He is not in acute distress. Appearance: Normal appearance. He is obese. He is not toxic-appearing. HENT: Head: Normocephalic and atraumatic. Mouth/Throat: Mouth: Mucous membranes are moist. Pharynx: Oropharynx is clear. No posterior oropharyngeal erythema. Eyes: Pupils: Pupils are equal, round, and reactive to light. Neck: Vascular: No carotid bruit. Cardiovascular: Rate and Rhythm: Normal rate and regular rhythm. Heart sounds: Normal heart sounds. No murmur heard. No gallop. Pulmonary: Effort: Pulmonary effort is normal. No respiratory distress. Breath sounds: Normal breath sounds. Abdominal: General: Bowel sounds are normal. There is no distension. Palpations: Abdomen is soft. Tenderness: There is abdominal tenderness. There is no right CVA tenderness, left CVA tenderness orguarding. Comments: Mild mid quadrant abdominal tenderness on the right. Patient's discomfort is well below the gallbladder and well above appendix; status post appendectomy from a child. There is no guarding,rigidity or masses. Musculoskeletal: Cervical back: Normal range of motion and neck supple. Skin: General: Skin is warm and dry. Capillary Refill: Capillary refill takes less than 2 seconds. Neurological: General: No focal deficit present. Mental Status: He is alert and oriented to person, place, and time. Mental status is at baseline. Psychiatric: Mood and Affect: Mood normal. Behavior: Behavior normal. Thought Content: Thought content normal. Judgment: Judgment normal. I have reviewed the following results: CMP and CBC Assessment and Plan Abdominal pain, generalized - CT ABD/PELVIS W IV CONTRAST - WO ORAL CONTRAST Patient Instructions Continue current medication as prescribed. Use 650 mg of Tylenol/acetaminophen every 6 hours as needed for pain. Follow-up for CT scan of her abdomen and we will follow-up a couple days after CT to review the results. Call for worsening symptoms or any new/concerning symptoms. Wrap-Up Check-out note: Schedule patient in the clinic for follow-up with myself in 2-[address] scan. Time: I spent a total of 20-29 minutes (exact time 24 mins) on the date of service in preparation, delivery, and documentation of the care provided to Jh Fields . excluding any time spent in theperformance of separately billed services. documented in this encounter Nursing Notes * Bonnie Tinoco LPN - 12/18/2022 2:34 PM EDT The patient has been properly identified by confirmation of name and date of . Chief Complaint Patient presents with Acute Patient is here today due to stomach discomfort on the right lower quadrant. Patient states there is times when he coughs he has to hold at the spot. documented in this encounter Plan of Treatment Upcoming Encounters Date Type Specialty Care Team Description 12/21/2022 Appointment Radiology 12/25/2022 Office Visit Family Medicine William Ch PA-C [address] [place] [address] 01/02/2023 Office Visit Hematology Oncology Scout Huddleston MD [address] [place] [address] 01/23/2023 Office Visit Family Medicine Chema Combs MD [address] [place] [address] 09/19/2023 Office Visit Cardiology Prashant Ruiz, [address] [place] [address] Scheduled Orders Name Type Priority Associated Diagnoses Orde r Schedule CT ABD/PELVIS W IV CONTRAST - WO ORAL CONTRAST Medical Imaging Routine Abdominal pain, generalized Ordered: 12/18/2022 Scheduled Procedures Name Priority Associated Diagnoses Date/Ti [...] 2023 04/06/2022, 02/24/2021, 04/13/2020, Additional history exists O2 ASSESSMENT COMPLETED IN PAST YEAR FOR COPD 11/30/2023 11/29/2022 B-12 12/12/2023 12/11/2022 GFR 12/12/2023 12/11/2022, 06/28, 06/19/2022, Additional history exists HbA1c 12/12/2023 12/11/2022, 06/28, 07/06/2021, Additional history exists Colonoscopy 07/06/2026 07/06/2016, 07/06/2016 [...] 08/29/2016 LUNG CANCER SCREENING - USE SMARTSET 96930 Completed 10/01/2017 Zoster Vaccines Completed 12/14/2019, 09/24, 02/16/2013 GARDASIL-HPV IMMUNIZATION SERIES Aged Out No longer eligible based on patient's age to complete this topic Hepatitis B Aged Out No longer eligi ble based on patient's age to complete this topic documented as of this encounter Medical Devices Not on filedocumented as of this encounter Visit Diagnoses Diagnosis Abdominal pain, generalized- Primary documented in this encounter Care Teams Shift Leader Relationship Specialty Start Date End Date Chema Combs MD [address] [place], [place] [phone] PCP - General Family Medicine 07/02/18 documented as of this encounter
--- OUTSIDE RECORDS SUMMARY | 2023-05-22 15:04 | External Medical Summary ---
Author Name Unknown Address Unknown Organization K01:LAB[facility]ATORY [facility] - [address] [facility] [address] Laboratory Report Ordering Provider Test Date Status KAY ORTEGAON 12/11/2022 10:49:49 Final Observation Date Value Abnormality Reference (Units ) Status SYNC LEUKOCYTES IN BLOOD BY AUTOMATED COUNT 12/11/2022 10:49:49 25.58 Above high normal 4.00-10.80 (K/uL) Final Neutrophils/100 leukocytes in Blood by Manual count 12/11/2022 10:49:49 31.0 Below low normal 40.0-75.0 (%) Final Lymphocytes/100 leukocytes in Blood by Manual count 12/11/2022 10:49:49 58.0 Above high normal 18.0-42.0 (%) Final Monocytes/100 leukocytes in Blood by Manual count 12/11/2022 10:49:49 8.0 1.0-11.0 (%) Final Eosinophils/100 leukocytes in Blood by Manual count 12/11/2022 10:49:49 2.0 0.0-6.0 (%) Final Basophils/100 leukocytes in Blood by Manual count 12/11/2022 10:49:49 1.0 0.0-2.0 (%) Final Neutrophils [#/volume] in Blood by Manual count 12/11/2022 10:49:49 7.93 Above high normal 1.80-7.70 (K/uL) Final Lymphocytes [#/volume] in Blood by Manual count 12/11/2022 10:49:49 14.84 Above high normal 1.00-4.80 (K/uL) Final Monocytes [#/volume] in Blood by Manual count 12/11/2022 10:49:49 2.05 Above high normal 0.00-1.10 (K/uL) Final Eosinophils [#/volume] in Blood by Manual count 12/11/2022 10:49:49 0.51 0.00-0.70 (K/uL) Final Basophils [#/volume] in Blood by Manual count 12/11/2022 10:49:49 0.26 Above high normal 0.00-0.20 (K/uL) Final Variant lymphocytes [Presence] in Blood by Light microscopy 12/11/2022 10:49:49 Present Abnormal None Seen Final Performing Location [facility]ORY [facility] [place] [address] [facility] [address]
--- OUTSIDE RECORDS SUMMARY | 2023-05-22 15:04 | External Medical Summary | Summary of Care ---
Author Name Unknown Organization [facility] Address [address] [facility] [place] [address] Phone [phone] Care Team Providers Care Therapeutic Support Staff Name Role Phone Chema Combs MD Primary Care Provider [phone] Reason for Visit * Reason Onset Date Comments Test Results 12/22/2022 Encounter Details Date Type Department Care Team Description 12/22/2022 Telephone Family Practice [facility] [address] [facility] [place] [address] Jolie Peñaloza PA-C [address] [facility] [place] [address] Test Results Allergies Active Allergy Reactions Severity Noted Date Comments Lisinopril Cough Low 08/18/2009 documented as of this encounter (statuses as of 12/22/2022) Medications Medication Sig Dispensed Refills Start Date [...] as of this encounter (statuses as of 12/22/2022) Active Problems Problem Noted Date Prediabetes 01/02/2021 [...] as of this encounter (statuses as of 12/22/2022) Resolved Problems Problem Noted Date Resolved Date [...] Special screening for malignant neoplasm of pros whtiten 11/03/2012 11/20/2016 Obesity, Class I, BMI 30.0-34.9 [...] 06/16/2015 PVD (PERIPHERAL VASCULAR DISEASE) PERIPH VASC EMMANUEL MADERA,UNSP 02/06/2008 01/02/2012 Screening for prostate cancer 02/06/2008 Overview: Resolved per Screening Diagnosis Protocol #6 Tobacco use disorder 02/06/2008 01/02/2012 Osteoporosis 02/06/2008 06/16/2015 PAIN IN LIMB, LEFT DISTAL GREAT TOE 02/06/2008 06/16/2015 HTN, goal below 140/90 3 HTN, goal below 140/80 5 documented as of this encounter (statuses as of 12/22/2022) Immunizations Name Administration Dates Next Due COVID-19 [...] encounter Miscellaneous Notes * Telephone Encounter - Jolie Peñaloza PA-C - 12/22/2022 8:13 AM EDT Call from radiology on ct scan results. Recommending US. Called patient. Discussed CTscan. Already scheduled for US on Saturday. documented in this encounter Plan of Treatment Upcoming Encounters Date Type Specialty Care Team Description 12/24/2022 Imaging Radiology 12/25/2022 Office Visit Family Medicine William Ch PA-C [address] [place] [address] 01/02/2023 Office Visit Hematology Oncology Scout Huddleston MD [address] [place] [address] 01/23/2023 Office Visit Family Medicine Chema Combs MD [address] [place] [address] 09/19/2023 Office Visit Cardiology Prashant Ruiz DO [address] [place] [address] Scheduled Orders Name Type Priority Associated Diagnoses Orde r Schedule US ABDOMEN LIMITED Medical Imaging STAT Abnormal CT of liver Abnormal findings on diagnostic imaging of gall bladder Expected: 12/23/2022, Expires: 01/23/2024 Scheduled Procedures Name Priority Associated Diagnoses Date/Ti [...] ASSESSMENT COMPLETED IN PAST YEAR FOR COPD 12/19/2023 12/18/2022 Colonoscopy 07/06/2026 07/06/2016, 07/06/2016 Colorectal Cancer Screening [...] 08/29/2016 LUNG CANCER SCREENING - USE SMARTSET 26305 Completed 10/01/2017 Zoster Vaccines Completed 12/14/2019, 09/24, 02/16/2013 GARDASIL-HPV IMMUNIZATION SERIES Aged Out No longer eligible based on patient's age to complete this topic Hepatitis B Aged Out No longer eligi ble based on patient's age to complete this topic documented as of this encounter Medical Devices Not on filedocumented as of this encounter Visit Diagnoses Diagnosis Abnormal CT of liver- Primary Nonspecific (abnormal) findings on radiological and other examination of biliary tract Abnormal findings on diagnostic imaging of gall bladder Nonspecific (abnormal) findings on radiological and other examination of biliary tract documented in this encounter Care Teams Therapeutic Support Staff Relationship Specialty Start Date End Date Chema Combs MD [address] [place], [place] [phone] PCP - General Family Medicine 07/02/18 documented as of this encounter
--- OUTSIDE RECORDS SUMMARY | 2023-05-22 15:04 | External Medical Summary ---
Author Name Unknown Address Unknown Organization K01:LABORATORY [facility] [place] - [address] [place] [address] Laboratory Report Ordering Provider Test Date Status MARLON ORTEGA 12/11/2022 10:49:49 Final Observation Date Value Abnormality Reference (Units ) Status LDH 12/11/2022 10:49:49 196 <=250 (U/L ) Final Performing Location LABORATORY [facility] - [address] [place] [address]
--- OUTSIDE RECORDS SUMMARY | 2023-05-22 15:04 | External Medical Summary ---
Author Name Unknown Address Unknown Organization K01:[facility] [place] [facility] [address] [facility] [address] [place] [address] Laboratory Report Ordering Provider Test Date Status MARLON ORTEGA 12/11/2022 10:49:49 Final Observation Date Value Abnormality Reference (Units ) Status WBC, Total 12/11/2022 10:49:49 25.58 Above high normal 4.00-10.80 (K/uL) Final RBC 12/11/2022 10:49:49 4.95 4.50-5.25 (M/uL) Final Hemoglobin 12/11/2022 10:49:49 14.4 14.0-16.8 (g/dL) Final HCT 12/11/2022 10:49:49 45.7 40.0-48.4 (%) Final MCV 12/11/2022 10:49:49 92.3 82.0-99.5 (fL) Final MCH 12/11/2022 10:49:49 29.1 27.0-34.0 (pg) Final MCHC 12/11/2022 10:49:49 31.5 32.0-36.0 (g/dL) Final RDW 12/11/2022 10:49:49 14.4 11.5-15.5 (%) Final Platelets 12/11/2022 10:49:49 317 140-400 (K/uL) Final MPV 12/11/2022 10:49:49 9.6 6.6-11.1 (fL) Final Nucleated erythrocytes/100 leukocytes [Ratio] in Blood by Automated count 12/11/2022 10:49:49 0 <=0 (/100 WBCs) Final Performing Location [facility] [place] [address] [place] [address]
--- OUTSIDE RECORDS SUMMARY | 2023-05-22 15:04 | External Medical Summary | Summary of Care ---
Author Name Unknown Organization [facility] Address [address] [place] [address] Phone [phone] Care Team Providers Care Superintendent [employer] Name Role Phone Robert Combs MD Primary Care Provider [phone] Reason for Visit * Reason Comments eRx-Medication Refill Encounter Details Date Type Department Care Team Description 12/13/2022 Refill [facility] [address] [place] [address] Robert Combs MD [address] [place] [address] HTN, goal below 150/90 Allergies Active Allergy Reactions Severity Noted Date Comments Lisinopril Cough Low 08/18/2009 documented as of this encounter (statuses as of 12/14/2022) Medications Medication Sig Dispensed Refills Start Date End Date Status VITAMIN D 1000 UNITS PO CAPSIndications: Vitamin D deficiency 2 capsule daily 60 Cap 11 05/14/2014 Active citalopram (CELEXA) 20 MG TabletIndication s:Mood swings Take 1 Tab by mouth daily. [...] mouth. 0 Active allopurinol (ZYLOPRIM) 100 MG TabletIndication [...] 0 Active Furosemide 20 MG Oral Tablet (Lasix)Indicatio [...] EVERY DAY 90 Tablet 1 12/14/2022 Active Potassium Chloride ER 10 MEQ Oral Tablet Extended ReleaseIndicatio ns:HTN, goal below 150/90 TAKE 1 TABLET BY MOUTH EVERY DAY 90 Tablet 1 06/11/2022 3 Discontinued documented as of this encounter (statuses as of 12/14/2022) Active Problems Problem Noted Date Prediabetes 01/02/2021 [...] as of this encounter (statuses as of 12/14/2022) Resolved Problems Problem Noted Date Resolved Date [...] as of this encounter (statuses as of 12/14/2022) Immunizations Name Administration Dates Next Due COVID-19 [...] encounter Miscellaneous Notes * Telephone Encounter - Bhargav Damian RPh - 12/14/2022 10:23 AM EDTSigned Prescriptions: Disp Refills Potassium Chloride ER 10 MEQ Oral Tablet E*90 Tab*1 Sig: TAKE 1TABLET BY MOUTH EVERY DAYAuthorizing Provider: ROBERT COMBS User: BHARGAV DAMIAN------ documented in this encounter Plan of Treatment Upcoming Encounters Date Type Specialty Care Team Description 01/02/2023 Office Visit Hematology Oncology Scout Huddleston MD [address] [place] [address] 01/23/2023 Office Visit [facility] [address] [facility] [address] 09/19/2023 Office Visit Cardiology Prashant Ruiz, [address] [place] [address] Scheduled Procedures Name Priority Associated Diagnoses Date/Ti [...] 08/29/2016 LUNG CANCER SCREENING - USE SMARTSET 14577 Completed 10/01/2017 Zoster Vaccines Completed 12/14/2019, 09/24, 02/16/2013 GARDASIL-HPV IMMUNIZATION SERIES Aged Out No longer eligible based on patient's age to complete this topic Hepatitis B Aged Out No longer eligi ble based on patient's age to complete this topic documented as of this encounter Medical Devices Not on filedocumented as of this encounter Visit Diagnoses Diagnosis HTN, goal below 150/90 documented in this encounter Care Teams Superintendent [employer] Relationship Specialty Start Date End Date Robert Combs MD [address] [place] [address] PCP - General Family Medicine 07/02/18 documented as of this encounter
--- OUTSIDE RECORDS SUMMARY | 2023-05-22 15:04 | External Medical Summary | Summary of Care ---
Author Name Unknown Organization [facility] Address [address] [facility] [address] Phone [phone] Care Team Providers Care Tar Kettle Runner Name Role Phone Chema Combs MD Primary Care Provider [phone] Reason for Referral * Precert (Within 10 days (routine)) - Pending Review Specialty Diagnoses / Procedures Referred By Contac t Referred To Contact Radiology Diagnoses Abnormal CT of liver Abnormal findings on diagnostic imaging of gall bladder Procedures MRI LIVER W WO CONTRAST Sally Anaya PA-C [address] [facility] [place] [address] Referral ID Status Reason Start Date Expiration Date V isits Requested Visits Authorized [id number] Pending Review 12/24/[phone] Reason for Visit * Reason Onset Date Comments Test Results 12/24/2022 Ultrasound abdom en Encounter Details Date Type Department Care Team Description 12/24/2022 Telephone Family Practice Jonas Cobos [place] [address] [facility] [place] [address] Sally Anaya PA-C [address] [facility] [place] [address] Test Results (Ultrasound abdomen) Allergies Active Allergy Reactions Severity Noted Date Comments Lisinopril Cough Low 08/18/2009 documented as of this encounter (statuses as of 12/24/2022) Medications Medication Sig Dispensed Refills Start Date End Date Status VITAMIN D 1000 UNITS PO CAPSIndications:Vit mosley D deficiency 2 capsule daily 60 Cap 11 05/14/2014 Active citalopram (CELEXA) 20 MG TabletIndications:M vonnie swings Take 1 Tab by mouth daily. [...] goal below 150/90,PAF (paroxysmal atrial fibrillation) ([facility]) TAKE 1 CAPSULE BY MOUTH [...] as of this encounter (statuses as of 12/24/2022) Active Problems Problem Noted Date Prediabetes 01/02/2021 [...] as of this encounter (statuses as of 12/24/2022) Resolved Problems Problem Noted Date Resolved Date Prediabetes 04/06/2019 09/08/2020 Overview: Per Prediabetes protocol Acute respiratory failure with hypoxia 9 06/02/2019 PVD (peripheral vascular disease) 09/29/2018 09/29/2018 Acute hip pain 11/19/2016 11/20/2016 Screen for colon cancer 06/22/2016 11/21/19 17 Cellulitis of thumb 04/13/2016 11/20/2016 Vision test 08/22/2015 12/21/2015 Obesity, Class I, BMI 30.0-34.9 (see actual BMI) 06/16/2015 11/20/2016 Overview: bmi= 34.24 1/21/16 Mood swings 04/19/2015 11/20/2016 Bronchitis, complicated 09/08/2014 [...] as of this encounter (statuses as of 12/24/2022) Immunizations Name Administration Dates Next Due COVID-19 [...] Telephone Encounter - Sally Anaya PA-C - 12/24/2022 3:12 PM EDT US results reviewed, reocmmending MRI of hte liver. This is ordered. MyG sent to patient. documented in this encounter Plan of Treatment Upcoming Encounters Date Type Specialty Care Team Description 12/25/2022 Office Visit Family Medicine William Ch PA-C [address] [place] [address] 01/02/2023 Office Visit Hematology Oncology Scout Huddleston MD [address] [place] [address] 01/23/2023 Office Visit Family Medicine Chema Combs MD [address] [place] [address] 09/19/2023 Office Visit Cardiology Prashant Ruiz, DO [address] [place] [address] Scheduled Orders Name Type Priority Associated Diagnoses Orde r Schedule MRI LIVER W WO CONTRAST Medical Imaging Routine Abnormal CT of liver Abnormal findings on diagnostic imaging of gall bladder Expected: 12/24/2022, Expires: 01/25/2024 Scheduled Procedures Name Priority Associated Diagnoses Date/Ti [...] 08/29/2016 LUNG CANCER SCREENING - USE SMARTSET 17922 Completed 10/01/2017 Zoster Vaccines Completed 12/14/2019, 09/24, [...] tract documented in this encounter Care Teams Tar Kettle Runner Relationship Specialty Start Date End Date Chema Combs MD [address] [place], [place] [phone] PCP - General Family Medicine 07/02/18 documented as of this encounter
--- OUTSIDE RECORDS SUMMARY | 2023-05-22 15:04 | External Medical Summary | Summary of Care ---
Author Name Unknown Organization [facility] Address [address] [facility] [place] [address] Phone [phone] Care Team Providers Care Veneer Drier Feeder Name Role Phone Chema Combs MD Primary Care Provider [phone] Reason for Referral * Precert (Within 10 days (routine)) - Pending Review Specialty Diagnoses / Procedures Referred By Contac t Referred To Contact Radiology Diagnoses Abnormal CT of liver Abnormal findings on diagnostic imaging of gall bladder Procedures MRI LIVER W WO CONTRAST Sally Anaya PA-C [address] [facility] [place] [address] Referral ID Status Reason Start Date Expiration Date V isits Requested Visits Authorized [id number] Pending Review 12/24/2022 999 999 Reason for Visit * Reason Onset Date Comments Test Results 12/24/2022 Ultrasound abdom en Encounter Details Date Type Department Care Team Description 12/24/2022 Telephone Family Practice Jonas Cobos [place] [address] [facility] [place] [address] Sally Anaya PA-C [address] [facility] [place] [address] Test Results (Ultrasound abdomen) Allergies Active Allergy [...] CD)Indications:HTN, goal below 150/90,PAF (paroxysmal atrial fibrillation) ([facility]) TAKE 1 CAPSULE BY MOUTH [...] encounter Miscellaneous Notes * Telephone Encounter - KRSYTIN Nava - 12/25/2022 10:06 AM EDT Pt has appt scheduled * Telephone Encounter - Alejandra Grant LPN - 12/24/2022 3:57 PM EDT Called pt, informed of message. He verbalized understanding. transfered call to radiology to schedule. * Telephone Encounter - Sally Anaya PA-C - 12/24/2022 3:12 PM EDT US results reviewed, reocmmending MRI of hte liver. This is ordered. MyG sent to patient. documented in this encounter Plan of Treatment Upcoming Encounters Date Type Specialty Care Team Description 12/25/2022 Office Visit Family Medicine William Ch PA-C [address] [place] [address] 12/26/2022 Appointment Radiology 01/02/2023 Office Visit Hematology Oncology Scout Huddleston MD [address] [place] [address] 01/23/2023 Office Visit Family Medicine Chema Combs MD [address] [place] [address] 09/19/2023 Office Visit Cardiology Prashant Ruiz, DO [address] [place] [address] Scheduled Orders Name Type Priority Associated Diagnoses [...] 08/29/2016 LUNG CANCER SCREENING - USE SMARTSET 60707 Completed 10/01/2017 Zoster Vaccines Completed 12/14/2019, 09/24, [...] tract documented in this encounter Care Teams Veneer Drier Feeder Relationship Specialty Start Date End Date Chema Cmobs MD [address] [place] [address] PCP - General Family Medicine 07/02/18 documented as of this encounter
--- OUTSIDE RECORDS SUMMARY | 2023-05-22 15:04 | External Medical Summary ---
Author Name Unknown Address Unknown Organization [id number]:[facility] [place] [address] [address] [place] [id number] Laboratory Report Ordering Provider Test Date Status MARLON ORTEGA 12/11/2022 10:49:49 Final Observation Date Value Abnormality Reference (Units ) Status BUN 12/11/2022 10:49:49 15 6-20 (mg/dL) Final Creatinine 12/11/2022 10:49:49 1.1 0.6-1.2 (mg/dL) Final Glomerular filtration rate/1.73 sq M.predicted [Volume Rate/Area] in Serum, Plasma or Blood by Creatinine-based formula (CKD-EPI) 12/11/2022 10:49:49 72 >=60 (mL/min) Final eGFR is calculated based on the CKD-EPI 2020 equation SODIUM 12/11/2022 10:49:49 139 135-146 (m mol/L) Final Potassium 12/11/2022 10:49:49 5.1 3.5-5.1 (m mol/L) Final Cl 12/11/2022 10:49:49 103 98-107 (mm ol/L) Final CO2 12/11/2022 10:49:49 28 22-32 (mmo l/L) Final Anion gap 12/11/2022 10:49:49 8 7-15 (mmol /L) Final Glucose 12/11/2022 10:49:49 99 70-120 (mg /dL) Final Albumin 12/11/2022 10:49:49 4.5 3.8-5.0 (g /dL) Final AST (Aspartate aminotransferase) 12/11/2022 10:49:49 34 10-50 (U/L) Fin al Alk Phos 12/11/2022 10:49:49 204 Above high normal 35 -130 (U/L) Final Bilirubin, Total 12/11/2022 10:49:49 0.9 <=1 .2 (mg/dL) Final Calcium 12/11/2022 10:49:49 9.7 8.4-10.2 ( mg/dL) Final Protein 12/11/2022 10:49:49 6.3 6.0-8.3 (g /dL) Final ALT (Alanine aminotransferase) 12/11/2022 10:49:49 39 10-50 (U/L) Donell matthew Performing Location [facility] [place] [address] [facility] [address]
--- OUTSIDE RECORDS SUMMARY | 2023-05-22 15:04 | External Medical Summary | Summary of Care ---
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); Prediabetes; On shelter drug therapy Allergies Active Allergy Reactions Severity Noted Date Comments Lisinopril Cough Low 08/18/2009 documented as of this encounter (statuses as of 12/11/2022) Medications Medication Sig Dispensed Refills Start Date [...] EVERY DAY 180 Tablet 2 03/30/2022 Active Potassium Chloride ER 10 MEQ Oral Tablet Extended ReleaseIndications: HTN, goal below 150/90 TAKE 1 TABLET BY MOUTH EVERY DAY 90 Tablet 1 06/11/2022 Active dilTIAZem HCl ER Coated Beads 120 [...] A DAY 180 Tablet 3 06/28/2022 Active documented as of this encounter (statuses as of 12/11/2022) Active Problems Problem Noted Date Prediabetes 01/02/2021 [...] as of this encounter (statuses as of 12/11/2022) Resolved Problems Problem Noted Date Resolved Date [...] as of this encounter (statuses as of 12/11/2022) Immunizations Name Administration Dates Next Due COVID-19 [...] on file documented as of this encounter Plan of Treatment Upcoming Encounters Date Type Specialty Care Team Description 01/02/2023 Office Visit Hematology Oncology Scout Huddleston MD [address] [place] [address] 01/23/2023 Office Visit Family Medicine Chema Combs MD [address] [place] [address] 09/19/2023 Office Visit Cardiology Prashant Ruiz, DO [address] [place] [address] Pending Results Name Type Priority Associated Diagnoses Date /Time CBC WITH WBC DIFFERENTIAL Lab Routine 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) 12/11/2022 10:49 AM EDT COMPREHENSIVE METABOLIC PANEL Lab Routine 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) 12/11/2022 10:49 AM EDT LD Lab Routine 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) 12/11/2022 10:49 AM EDT [id number], SERUM Lab Routine 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) 12/11/2022 10:49 AM EDT HEMOGLOBIN A1C Lab Routine Prediabetes 12/11/2022 10:49 AM EDT VITAMIN B12 Lab Routine On shelter drug therapy 12/11/2022 10:49 AM EDT CBC Lab Routine 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) 12/11/2022 10:49 AM EDT DIFFERENTIAL, AUTOMATED Lab Routine 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) 12/11/2022 10:49 AM EDT Scheduled Procedures Name Priority Associated Diagnoses Date/Ti me COLONOSCOPY FLEXIBLE PROXIMA L DIAGNOSTIC Recall Encounter for screening colonoscopy Health Maintenance Due Date Last Done Comments Alpha-1 Antitrypsin 1968 B-12 1968 Hepatitis C Screening 1968 Cologuard 1995 Fecal Occult Blood Test 1995 Sigmoidoscopy 1995 Albumin/Creatinine Ratio 06/19/2019 017, 12/13/2014, 03/17/2014, Additional history exists Depression Screening, Annual for Pts 12 and Over 04/14/2021 04/14/2020, 11/10/2014 COVID-19 Vaccine (4 - Moderna series) 08/02/2021 06/07/2021, 08/01/2020, 06/30/2020 Influenza Vaccine (FLU shot) (#1) 2023 04/06/2022, 02/24/2021, 04/13/2020, Additional history exists GFR 07/19/2023 07/19/2022, 05/28, 04/16/2022, Additional history exists HbA1c 07/19/2023 07/19/2022, 06/27, 12/07/2020, Additional history exists O2 ASSESSMENT COMPLETED IN PAST YEAR FOR COPD 11/30/2023 11/29/2022 Colonoscopy 07/06/2026 07/06/2016, 07/06/2016 Colorectal Cancer Screening 07/06/2026 Lipid Panel 07/19/2027 07/19/2022, 03/28, 12/07/2020, Additional history exists DTaP,Tdap,and Td Vaccines (3 - Td or Tdap) 09/23/2028 09/23/2018, 03/25/2008 MENINGOCOCCAL (MENACTRA/MENVEO) Aged Out 09/02/2015 No longer eligible based on patient's age to complete this topic Pneumococcal Vaccine: 65+ Years Completed 08/28/2016, 09/10/2015, 03/31/2008, Additional history exists ABDOMINAL AORTIC ANEURYSM (AAA) SCREENING Completed 08/29/2016 LUNG CANCER SCREENING - USE SMARTSET 74374 Completed 10/01/2017 Zoster Vaccines Completed 12/14/2019, 09/24, [...] leukemia, without mention of having achieved remission Prediabetes Other abnormal glucose On long goods drier drug therapy documented in this encounter Care Teams Veneer Drier Feeder Relationship Specialty Start Date End Date Chema Combs MD [address] [place], [place] [phone] PCP - General Family Medicine 07/02/18 documented as of this encounter
--- OUTSIDE RECORDS SUMMARY | 2023-05-22 15:04 | External Medical Summary | Summary of Care ---
Author Name Unknown Organization [facility] Address [address] [facility] [place] [address] Phone [phone] Care Team Providers Care Answerer Name Role Phone Chema Combs MD Primary Care Provider [phone] Reason for Referral * Precert (Within 10 days (routine)) - Pending Review Specialty Diagnoses / Procedures Referred By Contac t Referred To Contact Radiology Diagnoses Abnormal CT of liver Abnormal findings on diagnostic imaging of gall bladder Procedures MRI LIVER W WO CONTRAST Sally Anaya PA-C [address] [facility] [place] [address] Referral ID Status Reason Start Date Expiration Date V isits Requested Visits Authorized [id number] Pending Review 12/24/2022 999 999 Reason for Visit * Reason Onset Date Comments Test Results 12/24/2022 Ultrasound abdom en Encounter Details Date Type Department Care Team Description 12/24/2022 Telephone Family Practice Jonas Cobos [place] [facility] [place] [address] Sally Anaya PA-C [address] [facility] [place] [address] Test Results (Ultrasound abdomen) Allergies Active Allergy [...] CD)Indications:HTN, goal below 150/90,PAF (paroxysmal atrial fibrillation) ([facility]) TAKE 1 CAPSULE BY MOUTH EVERY [...] encounter Miscellaneous Notes * Telephone Encounter - Alejandra Grant LPN [...] 12/25/2022 Office Visit Family Medicine William Ch PA-Kevin [address] [place] [address] 01/02/2023 Office Visit Hematology Oncology Scout Huddleston MD [address] [place] [address] 01/23/2023 Office Visit Family Medicine Chema Combs MD [address] [place] [address] 09/19/2023 Office Visit Cardiology Prashant Ruiz, [address] [place] [address] Scheduled Orders Name Type Priority Associated Diagnoses [...] 08/29/2016 LUNG CANCER SCREENING - USE SMARTSET 95290 Completed 10/01/2017 Zoster Vaccines Completed 12/14/2019, 09/24, [...] tract documented in this encounter Care Teams Answerer Relationship Specialty Start Date End Date Chema Combs MD [address] [place] [address] PCP - General Family Medicine 07/02/18 documented as of this encounter
--- OUTSIDE RECORDS SUMMARY | 2023-05-22 15:04 | External Medical Summary ---
Author Name Unknown Address Unknown Organization K01:[facility] [place] [address] [facility] [place] [address] Laboratory Report Ordering Provider Test Date Status CARLOZ JONES 12/11/2022 10:49:49 Final Observation Date Value Abnormality Reference (Units ) Status HbA1C 12/11/2022 10:49:49 6.2 Above high normal 4. 0-5.6 (%) Final The use of HbA1c to monitor glycemic status is based on normal hemoglobin and HbA composition. This test should not be used in patients with abnormal hemoglobin that affects the half life of the red blood cell or the in vivo glycation rates. Glucose, estimated average 12/11/2022 10:49:49 131 Above high normal <126 (mg/dL) Donell matthew Performing Location [facility] [place] - [address] [facility] [place] [address]
--- OUTSIDE RECORDS SUMMARY | 2023-05-22 15:04 | External Medical Summary ---
Author Name Unknown Address Unknown Organization : Laboratory Report Ordering Provider Test Date Status MARLON ORTEGA 12/11/2022 10:49:49 Final Observation Date Value Abnormality Reference (Units ) Status Beta-2 Microglobulin 12/11/2022 10:49:49 2.68 Above high normal <=2.51 (mg/L) Final This test was performed usin g the Cruz
Immunoturbidimetric method. Values obtained
from different assay methods cannot be used
interchangeably. Beta-2 Microglobulin levels,
regardless of value, should not be interpreted
as absolute evidence of the presence or absence of
disease.

Test Performed at:
[email or web address]
[address] [facility]
[place] [address]
Marcial Jean M.D., Ph.D.,Director of Laboratories Performing Location
--- OUTSIDE RECORDS SUMMARY | 2023-05-22 15:04 | External Medical Summary ---
Author Name Unknown Address Unknown Organization K01:[facility] [place] [address] [place] [id number] Laboratory Report Ordering Provider Test Date Status CARLOZ JONES 12/11/2022 10:49:49 Final Observation Date Value Abnormality Reference (Units ) Status Vitamin B12 12/11/2022 10:49:49 [id number] (pg/mL) Final Performing Location [facility] [place] [address] [place] [id number]
--- OUTSIDE RECORDS SUMMARY | 2023-05-22 15:04 | External Medical Summary | Summary of Care ---
Author Name Unknown Organization [facility] Address [address] [place] [address] Phone [phone] Care Team Providers Care Teller Coordinator Name Role Phone Chema Combs MD Primary Care Provider [phone] Reason for Visit * Precert (Within 10 days (routine)) - Authorized Specialty Diagnoses / Procedures Referred By Contac t Referred To Contact Radiology Diagnoses Abdominal pain, generalized Procedures CT ABD/PELVIS W IV CONTRAST - WO ORAL CONTRAST CT ABD/PELVIS W IV AND W ORAL CONTRAST William Ch PA-C [address] [place] [address] Referral ID Status Reason Start Date Expiration Date V isits Requested Visits Authorized [id number] Authorized Precert 12/18/2022 06/16/2023 999 999 Encounter Details Date Type Department Care Team Description 12/21/2022 Hospital Encounter Radiology, [facility] [address] [place] [address] Arrived Allergies Active Allergy Reactions Severity Noted [...] Office Visit Family Medicine William Ch PA-C [address] [place] [address] 01/02/2023 Office Visit Hematology Oncology Scout Huddleston MD [address] [facility] [place] [address] 01/23/2023 Office Visit Family Medicine Chema Combs MD [address] [place] [address] 09/19/2023 Office Visit Cardiology Prashant Ruiz, [address] [place] [address] Scheduled Procedures Name Priority Associated Diagnoses Date/Ti [...] 08/29/2016 LUNG CANCER SCREENING - USE SMARTSET 09793 Completed 10/01/2017 Zoster Vaccines Completed 12/14/2019, 09/24, 02/16/2013 GARDASIL-HPV IMMUNIZATION SERIES Aged Out No longer eligible based on patient's age to complete this topic Hepatitis B Aged Out No longer eligi ble based on patient's age to complete this topic documented as of this encounter Medical Devices Not on filedocumented as of this encounter Procedures Procedure Name Priority Date/Time Associated Diagnosis Comments CT ABD/PELVIS W IV CONTRAST - WO ORAL CONTRAST Routine 12/21/2022 9:17 AM EDT Abdominal pain, generalized documented in this encounter Administered Medications Inactive Administered Medications - up to 3 most recent administrations Medication Order MAR Action Action Date Dose Rate Site Ioversol (Optiray 320) inj 100 mL 100 mL, Intravenous, ONCE, On Sat12/21/22 at 0925, For 1 dose, Radiology Medication Routing (Non-IR) Given 12/21/2022 9:23 AM EDT 100 mL documented in this encounter Care Teams Teller Coordinator Relationship Specialty Start Date End Date Chema Combs MD [address] [place] [address] PCP - General Family Medicine 07/02/18 documented as of this encounter
--- OUTSIDE RECORDS SUMMARY | 2023-05-22 15:05 | External Medical Summary | Summary of Care ---
Author Name Unknown Organization [facility] Address [address] [place] [address] Phone [phone] Care Team Providers Care Pattern Chart Writer Name Role Phone Chema Cmobs MD Primary Care Provider Reason for Visit * Reason Comments Acute Pt states he ate a b unch of strawberries and was experiencing stomach soreness. Pt states the soreness has subsided today. Encounter Details Date Type Department Care Team Description 11/29/2022 Office Visit [facility] [address] [place] [id number] William Ch PA-C [address] [place] [address] [id number] Abdominal pain, generalized*; Risk and functional assessment Allergies Active Allergy Reactions Severity Noted Date Comments Lisinopril Cough Low 08/18/2009 documented as of this encounter (statuses as of 11/29/2022) Medications Medication Sig Dispensed Refills Start Date [...] [place], goal below 150/90,PAF (paroxysmal atrial fibrillation) (FORMERLY [facility]) TAKE 1 CAPSULE BY MOUTH EVERY DAY 90 Capsule 3 06/28/2022 Active Eliquis 5 MG Oral Tablet (Apixaban)Indica tions:PAF (paroxysmal atrial fibrillation) (HCC) TAKE 1 TABLET BY MOUTH TWICE A DAY 180 Tablet 3 06/28/2022 Active Metoprolol Tartrate 50 MG Oral Tablet (Lopressor)Indic ations:HTN, goal below 150/90,PAF (paroxysmal atrial fibrillation) (FORMERLY [facility]) TAKE 1 TABLET BY MOUTH TWICE A DAY 180 Tablet 3 06/28/2022 Active Vitamin B Complex Oral Tablet Take 1 Tablet by mouth in the morning. 0 11/29/2022 Discontinue d(Medicatio n List Clean Up) documented as of this encounter (statuses as of 11/29/2022) Active Problems Problem Noted Date Prediabetes 01/02/2021 [...] as of this encounter (statuses as of 11/29/2022) Resolved Problems Problem Noted Date Resolved Date [...] 02/06/2008 06/16/2015 PVD (PERIPHERAL VASCULAR DISEASE) [facility] 02/06/2008 01/02/2012 Screening for prostate cancer 02/06/2008 Overview: Resolved per Screening Diagnosis Protocol #6 Tobacco use disorder 02/06/2008 01/02/2012 Osteoporosis 02/06/2008 06/16/2015 PAIN IN LIMB, LEFT DISTAL GREAT TOE 02/06/2008 06/16/2015 HTN, goal below 140/90 3 HTN, goal below 140/80 5 documented as of this encounter (statuses as of 11/29/2022) Immunizations Name Administration Dates Next Due COVID-19 [...] Reading Time Taken Comments Blood Pressure 112/78 11/29/2022 11:09 AM EDT Pulse 92 11/29/2022 11:09 AM EDT Temperature 36.3 C (97.3 F) 11/29/2022 11:09 AM E DT Respiratory Rate 18 11/29/2022 11:09 AM EDT Oxygen Saturation 96% 11/29/2022 11:09 AM EDT Inhaled Oxygen Concentration - - Weight 113.4 kg (250 lb) 11/29/2022 11:09 AM EDT Height - - Body Mass Index 33.91 06/04/2022 3:16 PM EST documented in this encounter Patient Instructions * Patient Instructions* William Ch PA-C - 11/29/2022 11:09 AM EDT Use 650 mg of acetaminophen every 6 hours as needed for pain. Monitor your stools and look for bright red blood or black/tarry stools. Continue other medications as prescribed. Return to the clinic for worsening pain, bloody or black/tarry stools, vomiting or any new/concerning symptoms. Patient Instructions - Fall Prevention (This education is for all patients over 65 regardless of symptoms) Remember to take your current medications as prescribed. In order to prevent falls, you are encouraged to: Exercise Utilize assistive/adaptive devices Avoid multifocal lenses when walking Avoid hazards in home Maintain a regular toileting schedule Any questions please contact our office. Preventing Falls in the Home (This education is for all patients over 65 regardless of symptoms) As you get older, falls are more likely. Thats because your reaction time slows. Your muscles and joints may also get stiffer, making them less flexible. Illness, medications, and vision changes can also affect your balance. A fall could leave you unable to live on your own. To make your home safer, follow these tips: Floors Put nonskid pads under area rugs Remove throw rugs Replace worn floor coverings Tack carpets firmly to each step on carpeted stairs. Put nonskid strips on the edges of uncarpeted stairs Keep floors and stairs free of clutter and cords Arrange furniture so there are clear pathways Clean up any spills right away Bathrooms Install grab bars in the tub or shower Apply nonskid strips or put a nonskid rubber mat in the tub or shower Sit on a bath chair to bathe Use bathmats with nonskid backing Lighting Keep a flashlight in each room Put a nightlight along the pathway between the bedroom and the bathroom Ana Paula Patient Education Copyright 2008 - 2010 Ana Paula except where otherwise noted Preventing Falls: Exercises to Improve Balance, Flexibility, Strength, and Staying Power (This education is for all patients over 65 regardless of symptoms) Certain types of exercises may help make you less likely to fall. Try the ones below. Or do other exercises that your healthcare provider suggests. Depending on your health, you may need to start slowly. Dont let that stop you. Even small amounts of exercise can help you. Be sure to talk to yourhealthcare provider before starting any exercise program. Improve Balance Many types of exercise can help improve balance. Gume chi and yoga are good examples. Heres another one to try. You can do it anytime and almost anywhere. Stand next to a counter or solid support. Push yourself up onto your tiptoes. Hold for 5 seconds. If you start to lose your balance, hold on to the counter. Rest and repeat 5 times. Work up to holding for 20 to 30 seconds, if you can. Increase Flexibility Being more flexible makes it easier for you to move around safely. Try exercises like the seated hamstring stretch. Sit in a chair and put one foot on a stool. Straighten your leg and reach with both hands down either side of your leg. Reach as far down your leg as you can. Hold for about 20 seconds. Go back to the starting position. Then repeat 5 times. Switch legs. Build Strength Resistance exercises help build strength. You can do them without equipment. Or you can use weights, elastic bands, or special machines. One such exercise is called the biceps curl. You can hold a 1 pound weight or even a can of soup. Do this exercise at least 3 times a week. Strive for everyday. Sit up straight in a chair. Keep your elbow close to your body and your wrist straight. Bend your arm, moving your hand up to your shoulder. Then slowly lower your arm. Repeat 5 times. Switch to the other arm. Build Your Staying Power Aerobic exercises make your heart and lungs stronger so you can keep moving longer. Walking and swimming are two of the best types of exercises you can do. Using a stationary bike is great, too. Find an aerobic exercise that you enjoy. Start slowly and build up. Even 5 minutes is helpful. Aimfor a goal of 30 minutes, at least 3 times a week. You dont have to do 30 minutes in one session. Break it up and walk a little throughout the day. More Helpful Tips Start easy. Slowly work up to doing more. Talk with your healthcare provider about the best exercises for you. Call senior centers or health clubs about exercise programs. If needed, have a family member watch you walk every so often to check your stability. Exercise with a friend. Choose an activity you both enjoy. Try exercises that you can do anytime, anywhere. Here are two examples. Have someone with you when you first try these: Practice walking by placing one foot right in front of the other. Stand up and sit down 10 times. Repeat this throughout the day. Ana Paula Patient Education Copyright 2009 - 2010 Ana Paula except where otherwise noted. Preventing Falls: Moving Safely Using a Cane or Walker (This education is for all patients over 65 regardless of symptoms) Keep the cane away from your feet so you dont trip. A walking aid, such as a cane or walker, can help you stay more independent and avoid falls. Remember to keep your walking aid within easy reach when youre in a chair or in bed. And learn how to use it safely so you dont injure yourself. Using a Cane If you have a stronger side, hold the cane on that side. Get your balance. Move the cane and your weaker leg forward. Support your weight on both the cane and your weaker side. Step with your stronger leg. Start again from step 1. If youre using a folding walker, be sure you know how to lock it open. Check that its locked open before each use. Using a Walker Roll the walker (or lift it, if youre using one without wheels) forward about 12 inches. Step forward with your weaker leg first. Use the walker to help keep your balance. Bring your other foot forward to the center of the walker. Start again from step 1. Helpful Tips Check with your healthcare provider about the right walking aid to use. Ask about a walker with a seat attached. Check the tips of your cane or walker to make sure they have nonskid covers. Move slowly from room to room. Dont duvall. Sit down to get dressed. Use a dennis pack or backpack to keep your hands free. Get help for jobs that mean climbing, even on a stepstool. Ana [employer] Patient Education Copyright 2009 - 2010 Ana Paula except where otherwise noted. Treating Urinary Incontinence in Men (This education is for all patients over 65 regardless of symptoms) You can't always control the release of urine. You may leak urine. Or you may not be able to hold your urine until you can get to a bathroom. This is called urinary incontinence. The problem can be managed. Talk to your doctor about your treatment options. Taking Medications Prescription medications may help you. They may: Help the sphincter to work better. (This is the muscle that closes to keep urine from leaking out of the bladder.) Help stop the bladder from jessica too often to push urine out. Help the bladder muscles contract with more force. Help relax the sphincter muscle and allow urine to flow more freely. Making Changes to Your Routine Certain changes in your daily routine may help. These include: Avoiding caffeine and alcohol. Using timed voiding. This is following a schedule for drinking fluids and urinating. Doing Kegel exercises daily. These exercises involve tightening the muscles in your sphincter and around your bladder to help strengthen them. Your doctor can explain how to do them. Using a Catheter A catheter is a narrow tube that is inserted through the urethra into the bladder. It drains urine.A condom catheter covers the penis. It channels urine into a collection bag. It is worn most of thetime. Intermittent catheterization means inserting a catheter to drain the bladder, then removing it. This is done on a regular schedule. Having Surgery If other options don't work, surgery may be recommended. If surgery is an option, your healthcare provider can discuss it with you and explain its risks and benefits. Healing After Prostate Surgery Surgery on the prostate gland can cause incontinence. Most often, the incontinence is only for a short time. It clears up when healing is complete. Very rarely, prostate surgery can result in permanent incontinence. documented in this encounter Progress Notes * William Ch PA-C - 11/29/2022 11:34 AM EDT Images from the original note were not included. History of Present Illness Ronni Fields Jr. is a 72 year old male that presents for Acute (Pt states he ate a bunch of strawberries and was experiencing stomach soreness. Pt states the soreness has subsided today. ) Patient presents to the clinic for evaluation of right-sided abdominal pain. Historically patient is status post appendectomy with appendix rupture from age 15. Patient reports just over 2 weeks ago he started developing right-sided abdominal pain in the mid quadrant area. He reports it was moderate in intensity for few days and then become a soreness sensation. Currently he reports he is not having any pain but the area is tender to palpation. He reports the pain was nonradiating. He has not identified any aggravating or alleviating factors related to the pain but does report that he had a large amount of strawberries after the pain started and that may have increased his pain for few days. He denies any associated symptoms of vomiting, nausea, diarrhea, urinary symptoms, hematuria. Physical Exam Vitals: 11/29/22 1109 Temp: 36.3 C (97.3 F) Pulse: 92 Resp: 18 SpO2: 96% BP: 112/78 Physical Exam Vitals and nursing note reviewed. Constitutional: General: He is not in acute distress. Appearance: Normal appearance. He is obese. He is not toxic-appearing. HENT: Head: Normocephalic and atraumatic. Mouth/Throat: Mouth: Mucous membranes are moist. Pharynx: Oropharynx is clear. No posterior oropharyngeal erythema. Eyes: Extraocular Movements: Extraocular movements intact. Conjunctiva/sclera: Conjunctivae normal. Pupils: Pupils are equal, round, and reactive to light. Neck: Vascular: No carotid bruit. Cardiovascular: Rate and Rhythm: Normal rate and regular rhythm. Heart sounds: Normal heart sounds. No murmur heard. No gallop. Pulmonary: Effort: Pulmonary effort is normal. Breath sounds: Normal breath sounds. Abdominal: General: Bowel sounds are normal. Palpations: Abdomen is soft. There is no mass. Tenderness: There is abdominal tenderness. There is no right CVA tenderness, left CVA tenderness, guarding or rebound. Hernia: No hernia is present. Comments: Mild tenderness in the right mid quadrant area without guarding, rebound or rigidity. Bowel sounds present in all quadrants. Musculoskeletal: Cervical back: Normal range of motion and neck supple. Right lower leg: No edema. Left lower leg: No edema. Skin: General: Skin is warm and dry. Capillary Refill: Capillary refill takes less than 2 seconds. Neurological: General: No focal deficit present. Mental Status: He is alert and oriented to person, place, and time. Cranial Nerves: No cranial nerve deficit. Coordination: Coordination normal. Gait: Gait normal. Psychiatric: Mood and Affect: Mood normal. Behavior: Behavior normal. Thought Content: Thought content normal. Judgment: Judgment normal. Assessment and Plan Abdominal pain, generalized Risk and functional assessment Patient Instructions Use 650 mg of acetaminophen every 6 hours as needed for pain. Monitor your stools and look for bright red blood or black/tarry stools. Continue other medications as prescribed. Return to the clinic for worsening pain, bloody or black/tarry stools, vomiting or any new/concerning symptoms. Patient Instructions - Fall Prevention (This education is for all patients over 65 regardless of symptoms) Remember to take your current medications as prescribed. In order to prevent falls, you are encouraged to: Exercise Utilize assistive/adaptive devices Avoid multifocal lenses when walking Avoid hazards in home Maintain a regular toileting schedule Any questions please contact our office. Preventing Falls in the Home (This education is for all patients over 65 regardless of symptoms) As you get older, falls are more likely. Thats because your reaction time slows. Your muscles and joints may also get stiffer, making them less flexible. Illness, medications, and vision changes can also affect your balance. A fall could leave you unable to live on your own. To make your home safer, follow these tips: Floors Put nonskid pads under area rugs Remove throw rugs Replace worn floor coverings Tack carpets firmly to each step on carpeted stairs. Put nonskid strips on the edges of uncarpeted stairs Keep floors and stairs free of clutter and cords Arrange furniture so there are clear pathways Clean up any spills right away Bathrooms Install grab bars in the tub or shower Apply nonskid strips or put a nonskid rubber mat in the tub or shower Sit on a bath chair to bathe Use bathmats with nonskid backing Lighting Keep a flashlight in each room Put a nightlight along the pathway between the bedroom and the bathroom Ana Paula Patient Education Copyright 2008 - 2010 Ana Paula except where otherwise noted Preventing Falls: Exercises to Improve Balance, Flexibility, Strength, and Staying Power (This education is for all patients over 65 regardless of symptoms) Certain types of exercises may help make you less likely to fall. Try the ones below. Or do other exercises that your healthcare provider suggests. Depending on your health, you may need to start slowly. Dont let that stop you. Even small amounts of exercise can help you. Be sure to talk to yourhealthcare provider before starting any exercise program. Improve Balance Many types of exercise can help improve balance. Gume chi and yoga are good examples. Heres another one to try. You can do it anytime and almost anywhere. Stand next to a counter or solid support. Push yourself up onto your tiptoes. Hold for 5 seconds. If you start to lose your balance, hold on to the counter. Rest and repeat 5 times. Work up to holding for 20 to 30 seconds, if you can. Increase Flexibility Being more flexible makes it easier for you to move around safely. Try exercises like the seated hamstring stretch. Sit in a chair and put one foot on a stool. Straighten your leg and reach with both hands down either side of your leg. Reach as far down your leg as you can. Hold for about 20 seconds. Go back to the starting position. Then repeat 5 times. Switch legs. Build Strength Resistance exercises help build strength. You can do them without equipment. Or you can use weights, elastic bands, or special machines. One such exercise is called the biceps curl. You can hold a 1 pound weight or even a can of soup. Do this exercise at least 3 times a week. Strive for everyday. Sit up straight in a chair. Keep your elbow close to your body and your wrist straight. Bend your arm, moving your hand up to your shoulder. Then slowly lower your arm. Repeat 5 times. Switch to the other arm. Build Your Staying Power Aerobic exercises make your heart and lungs stronger so you can keep moving longer. Walking and swimming are two of the best types of exercises you can do. Using a stationary bike is great, too. Find an aerobic exercise that you enjoy. Start slowly and build up. Even 5 minutes is helpful. Aimfor a goal of 30 minutes, at least 3 times a week. You dont have to do 30 minutes in one session. Break it up and walk a little throughout the day. More Helpful Tips Start easy. Slowly work up to doing more. Talk with your healthcare provider about the best exercises for you. Call senior centers or health clubs about exercise programs. If needed, have a family member watch you walk every so often to check your stability. Exercise with a friend. Choose an activity you both enjoy. Try exercises that you can do anytime, anywhere. Here are two examples. Have someone with you when you first try these: Practice walking by placing one foot right in front of the other. Stand up and sit down 10 times. Repeat this throughout the day. Ana Paula Patient Education Copyright 2009 - 2010 Ana Paula except where otherwise noted. Preventing Falls: Moving Safely Using a Cane or Walker (This education is for all patients over 65 regardless of symptoms) Keep the cane away from your feet so you dont trip. A walking aid, such as a cane or walker, can help you stay more independent and avoid falls. Remember to keep your walking aid within easy reach when youre in a chair or in bed. And learn how to use it safely so you dont injure yourself. Using a Cane If you have a stronger side, hold the cane on that side. 1. Get your balance. 2. Move the cane and your weaker leg forward. 3. Support your weight on both the cane and your weaker side. 4. Step with your stronger leg. 5. Start again from step 1. If youre using a folding walker, be sure you know how to lock it open. Check that its locked open before each use. Using a Walker 1. Roll the walker (or lift it, if youre using one without wheels) forward about 12 inches. 2. Step forward with your weaker leg first. 3. Use the walker to help keep your balance. 4. Bring your other foot forward to the center of the walker. 5. Start again from step 1. Helpful Tips Check with your healthcare provider about the right walking aid to use. Ask about a walker with a seat attached. Check the tips of your cane or walker to make sure they have nonskid covers. Move slowly from room to room. Dont duvall. Sit down to get dressed. Use a dennis pack or backpack to keep your hands free. Get help for jobs that mean climbing, even on a stepstool. Ana Paula Patient Education Copyright 2009 - 2010 Ana Paula except where otherwise noted. Treating Urinary Incontinence in Men (This education is for all patients over 65 regardless of symptoms) You can't always control the release of urine. You may leak urine. Or you may not be able to hold your urine until you can get to a bathroom. This is called urinary incontinence. The problem can be managed. Talk to your doctor about your treatment options. Taking Medications Prescription medications may help you. They may: Help the sphincter to work better. (This is the muscle that closes to keep urine from leaking out of the bladder.) Help stop the bladder from jessica too often to push urine out. Help the bladder muscles contract with more force. Help relax the sphincter muscle and allow urine to flow more freely. Making Changes to Your Routine Certain changes in your daily routine may help. These include: Avoiding caffeine and alcohol. Using timed voiding. This is following a schedule for drinking fluids and urinating. Doing Kegel exercises daily. These exercises involve tightening the muscles in your sphincter and around your bladder to help strengthen them. Your doctor can explain how to do them. Using a Catheter A catheter is a narrow tube that is inserted through the urethra into the bladder. It drains urine.A condom catheter covers the penis. It channels urine into a collection bag. It is worn most of thetime. Intermittent catheterization means inserting a catheter to drain the bladder, then removing it. This is done on a regular schedule. Having Surgery If other options don't work, surgery may be recommended. If surgery is an option, your healthcare provider can discuss it with you and explain its risks and benefits. Healing After Prostate Surgery Surgery on the prostate gland can cause incontinence. Most often, the incontinence is only for a short time. It clears up when healing is complete. Very rarely, prostate surgery can result in permanent incontinence. Wrap-Up Follow Up: Return if symptoms worsen or fail to improve. Time: I spent a total of 20-29 minutes (exact time 22 mins) on the date of service in preparation, delivery, and documentation of the care provided to Jh Fields Jr. excluding any time spent in theperformance of separately billed services. documented in this encounter Nursing Notes * Bonnie Tinoco LPN - 11/29/2022 11:17 AM EDT The patient has been properly identified by confirmation of name and date of . Chief Complaint Patient presents with Acute Pt states he ate a bunch of strawberries and was experiencing stomach soreness. Pt states the soreness has subsided today. documented in this encounter Plan of Treatment Upcoming Encounters Date Type Specialty Care Team Description 12/04/2022 Office Visit Pain Medicine Chencho Mcgowan DO [address] [place] [id number] 12/11/2022 Laboratory Laboratory [place] [address] [place] [address] 01/02/2023 Office Visit Hematology Oncology Scout Huddleston MD [address] [facility] [place] [address] 01/23/2023 Office Visit Family Medicine [facility]ma Combs [facility] [address] [facility] [address] 09/19/2023 Office Visit Cardiology Prashant Ruiz, DO [address] [place] [id number] Scheduled Procedures Name Priority Associated Diagnoses Date/Ti me COLONOSCOPY FLEXIBLE PROXIMA L DIAGNOSTIC Recall Encounter for screening colonoscopy Health Maintenance Due Date Last Done Comments Yearly B-12 1950 Alpha-1 Antitrypsin 1968 Hepatitis C Screening 1968 [...] 08/29/2016 LUNG CANCER SCREENING - USE SMARTSET 41277 Completed 10/01/2017 Zoster Vaccines Completed 12/14/2019, 09/24, 02/16/2013 [facility]ASIL-HPV IMMUNIZATION SERIES Aged Out No longer eligible based on patient's age to complete this topic Hepatitis B Aged Out No longer eligi ble based on patient's age to complete this topic documented as of this encounter Medical Devices Not on filedocumented as of this encounter Visit Diagnoses Diagnosis Abdominal pain, generalized- Primary Risk and functional assessment Screening for unspecified condition documented in this encounter Care Teams Pattern Chart Writer Relationship Specialty Start Date End Date Chema Combs MD [address] [place] [address] PCP - General Family Medicine 07/02/18 documented as of this encounter
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
--- NOTE | 2023-05-22 15:19 | Electrocardiogram Report ---
Test Reason : Blood Pressure : / mmHG Vent. Rate : 079 BPM Atrial Rate : 079 BPM P-R Int : 230 ms QRS Dur : 084 ms QT Int : 394 ms P-R-T Axes : 027 -22 040 degrees QTc Int : 451 ms Sinus rhythm with 1st degree A-V block with Premature supraventricular complexes Abnormal ECG When compared with ECG of 18-JUN-2018 06:30, Sinus rhythm has replaced Atrial fibrillation ST no longer elevated in Inferior leads Nonspecific T wave abnormality no longer evident in Inferior leads Nonspecific T wave abnormality no longer evident in Lateral leads Confirmed by Casey Hightower ([id number]) on 05/22/2023 3:19:42 PM Referred By: Rona Quinn Confirmed By:Karan Hightower
[2023-05-22] MEDS: ACETAMINOPHEN 500 MG TAB PO PRN (16:53)
[2023-05-22] MEDS: FUROSEMIDE 40 MG/4 ML VIAL IV SCH (18:29)
[2023-05-22 20:10] LABS: Hematocrit (blood only) 20.5 % (42.0-52.0); Hemoglobin 7.3 g/dl (14.0-18.0)
[2023-05-22] MEDS ORDERED: FUROSEMIDE INJ 20 MG/2 ML VIAL IV ONE ×2 (20:14→23:14)
[2023-05-22] MEDS: APIXABAN 5 MG TABLET PO SCH (20:31)
[2023-05-22] MEDS: METOPROLOL SUCC 25MG EXT REL TAB PO SCH (20:31)
[2023-05-22] MEDS ORDERED: METOPROLOL TARTRATE 50 MG TAB PO SCH (21:00)
--- OUTSIDE RECORDS SUMMARY | 2023-05-22 21:33 | External Medical Summary | Summary of Care ---
Author Name Unknown Organization [facility] Address [address] [facility] [place] [address] Phone [phone] Care Team Providers Care Commissioned [employer] Officer Name Role Phone Chema Combs MD Primary Care Provider [phone] Reason for Visit * Reason Comments Follow Up Encounter Details Date Type Department Care Team (Late st Contact Info) Description 05/22/2023 10:00 AM EST Office Visit Cardiology, [facility] [address] [place] [address] Rona Quinn CRNP [address] [place] [address] PAF (paroxysmal atrial fibrillation) ([facility])*; HTN, goal below 140/90; Dyslipidemia, goal LDL below 100; Bilateral lower extremity edema; Fluid retention Allergies Active Allergy Reactions Criticality Noted Date [...] Oral Tablet (Apixaban)Indicati ons:PAF (paroxysmal atrial fibrillation) ([facility]) TAKE 1 TABLET BY MOUTH TWICE [...] for Nausea. 30 Tablet 0 01/16/2023 Active Additional Information Patient not taking.Reported on 05/22/2023 Prochlorperazine Maleate 10 MG Oral Tablet (Compazine)Indicat ions:Gall bladder disease Take 1 Tablet by mouth every 6 hours as needed for Nausea. 30 Tablet 0 01/16/2023 Active Additional Information Patient not taking.Reported on 05/22/2023 Lidocaine-Prilocai ne 2.5-2.5 % External Cream (Emla)Indications: Carcinoma of gall bladder (HCC) APPLY TO SKIN OVER MEDIPORT & COVER 1HR PRIOR TO ACCESSING. 30 g 1 01/24/2023 Active Atorvastatin Calcium 20 MG Oral Tablet (Lipitor)Indicatio ns:Dyslipidemia, goal LDL below 100 TAKE 1 TABLET BY MOUTH EVERY DAY IN THE MORNING 90 Tablet 1 02/18/2023 Active metFORMIN HCl ER 500 MG Oral Tablet Extended Release 24 Hour (Glucophage XR)Indications:Pre diabetes TAKE 1 TABLET BY MOUTH EVERY DAY [...] Sign Reading Time Taken Comments Blood Pressure 128/64 05/22/2023 9:57 AM EST Pulse 82 05/22/2023 9:57 AM EST Temperature - - Respiratory Rate - - Oxygen Saturation 97% 05/22/2023 9:57 AM EST Inhaled Oxygen Concentration - - Weight 110.7 kg (244 lb) 05/22/2023 9:57 AM EST Height - - Body Mass Index 33.09 04/10/2023 10:54 AM EST documented in this [...] as of this encounter Progress Notes * Rona Quinn CRNP - 05/22/2023 10:00 AM EST Cardiology Outpatient Visit 05/22/2023 Primary Clipper Automatic: Dr. Ruiz Past medical history: Paroxysmal atrial fibrillation [id number] score of 4 (age, HTN, CHF, DM) Dyslipidemia Hypertension COPD/emphysema + supplemental O2, follows with Dr. Charmaine TAM Hx of CLL Carcinoma of the gallbladder, on chemo-- following with heme HPI 72-year-old male presenting to the cardiology office today for an acute appointment. Was last evaluated by Dr. Ruiz approximately 9 months ago. Unfortunately, in December patient was diagnosed with carcinoma of the gallbladder. He is following with Hematology and receiving chemo (Cisplatin plus gemcitabine and durvalumab), formally was on Chlorambucil and ibrutinib. Since starting chemo he has noticed more episodes of atrial fibrillation. He is maintained on metoprolol tartrate and diltiazem. Anticoagulated with Eliquis. Today the patient presents with concerns for worsening palpitations, shortness of breath, and fluidretention. Symptoms started approximately 1 month ago however over the last week they have progressively worsened. Notes that he is up at least 10 lb. Swelling extends up to his abdomen in notes bloating and lack of appetite. He has been taking Lasix 20 mg daily however he is urinating very little.Notes significant dyspnea with minimal exertion as well as orthopnea. Heart rates have been averaging in the 90s but increased to the 120s with even minimal exertion. He is questioning if he has beenin atrial fibrillation. A CBC was completed this morning showing a hemoglobin of 7. Normally maintains mid 9s. Denies any recent bleeding. No blood in the stools. Did have a bowel movement this morning. No lightheadedness. No fever, chills, cough, hematochezia, melena, or hemoptysis. Patient is compliant with all medications, and offers no side effects. EKG today showing sinus rhythm with a first-degree AV block and PACs, 79 beats per minute. Current Outpatient Medications Medication Sig Dispense Refill VITAMIN D 1000 UNITS PO CAPS Take 2 Capsules by mouth in the morning. 60 Cap 11 Acetaminophen 500 MG Capsule Take 2 Capsules by mouth every 6 hours as needed for Fever >38C(100.5F) or Pain, Mild. aspirin enteric coated 81 MG TBEC Take 1 Tablet by mouth in the morning. Qfdanuwatky-Vufvmmikq-Ojpkff 100-62.5-25 MCG/ACT Aerosol Powder Breath Activated Inhale [...] mouth in the morning. 90 Tablet 1 Lidocaine-Prilocaine 2.5-2.5 % External Cream (Emla) APPLY [...] DAY IN THE MORNING 90 Tablet 1 Ondansetron HCl 8 MG Oral Tablet Take 1 Tablet by mouth every 8 hours as needed for Nausea. (Patient not taking: Reported on 05/22/2023) 30 Tablet 0 Prochlorperazine Maleate 10 MG Oral Tablet (Compazine) Take 1 Tablet by mouth every 6 hours as needed for Nausea. (Patient not taking: Reported on 05/22/2023) 30 Tablet 0 No current facility-administered medications for this visit. Past Medical History: Diagnosis Date COPD, mild [...] OR INJECTION MAJOR JOINT performed by Chencho Mcgowan DO at OR [facility] COLONOSCOPY, DIAGNOSTIC (RECTUM) 07/06/2016 diverticulosis, repeat 10 yrs/COLONOSCOPY FLEXIBLE PROXIMAL DIAGNOSTIC performed by Raul Guadalupe MD at ENDOSCOPY [facility] INJECT DX/THER SUBSTANCE INTERLAMINAR LUMBAR/SACRAL W IMAGE GUIDE 08/16/2016 INJECTION SPINE LUMBAR OR SACRAL performed by Chencho Mcgowan DO at OR [facility] INJECT DX/THER SUBSTANCE INTERLAMINAR LUMBAR/SACRAL W IMAGE GUIDE 09/10/2016 INJECTION SPINE LUMBAR OR SACRAL performed by Chencho Mcgowan, DO at OR [facility] INJECT DX/THER SUBSTANCE INTERLAMINAR LUMBAR/SACRAL W [...] SPIROMETRY B/A BRONCHODILATOR 10/2014 restriction Social History Tobacco Use Smoking status: Former Packs/day: 2.00 Years: 35.00 Additional pack years: 0.00 Total pack years: 70.00 Types: Cigarettes Quit date: 03/10/2010 Years since quittin.2 Smokeless tobacco: Never Vaping Use Vaping Use: Never used Substance Use Topics Alcohol use: No Comment: Social drinker prior to 2009 Drug use: Never Review of patient's allergies indicates: Allergen Reactions Lisinopril Cough Review of Systems: See HPI for pertinent positives. All others negative, other than those noted in HPI. Physical Exam BP 128/64 | Pulse 82 | Wt 110.7 kg (244 lb) | SpO2 97% | BMI 33.09 kg/m | BSA 2.37 m General: No acute distress. A+Ox3. HEENT: Normocephalic. Atraumatic. Conjunctiva and sclera clear. NECK: No carotid bruits. No JVD. Carotid upstrokes are brisk. Heart: RRR. S1 and S2 noted. Lungs: Crackles heard in bilateral bases, no wheezing or rales. Patient wearing supplemental O2. Abdomen: Normal bowel sounds. Obese, taut. Extremities: +2 to +3 bilateral lower extremity edema extending up to the presacral region. Abdominal bloating. No clubbing or cyanosis. Pulses: radial=2/4, posterior tibial=2/4, dorsalis pedis = 2/4. NEURO: No focal deficits. PSYCH: Normal. Lab data/imaging study review: EKG 05/22/2023 Sinus rhythm with first-degree AV block and PACs, 79 beats per minute. Impression/Plan: 1. PAF (paroxysmal atrial fibrillation) (HCC) 4. Bilateral lower extremity edema 5. Fluid retention -[id number] score of 4 (age, HTN, CHF, DM) Patient with worsening shortness of breath, fluid retention. + greater than 10 lb weight gain Currently under treatment with Cisplatin plus gemcitabine and durvalumab. Previously on Ibrutinib, which is known to cause worsening CHF and PAF Given significant fluid retention patient was encouraged to present to the emergency department forfurther workup and care. He is agreeable. Patient will arrive in private vehicle driven by . Will alert rounding Cardiology team as well as emergency department. Currently on metoprolol tartrate 50 mg twice daily, consider switching to succinate formulary during admission. May need to discontinue diltiazem due to fluid retention. Anticipate the need for IV diuresis. Normally maintains on Lasix 20 mg oral daily. Patient is currently on Eliquis 5 mg twice daily but did not take his dose of Eliquis this morning.He does have his pills with him. Update echocardiogram to reassess LVEF and valvular status. 2. HTN, goal below 140/90 -Well controlled with systolics in the 120s. 3. Dyslipidemia, goal LDL below 100 -LDL well controlled, 65. 1. Continue atorvastatin 20 mg daily The patient agrees to the above plan and will call with additional questions or concerns. ER with all emergencies advised. Check-out note: FOLLOW UP AFTER ED I spent a total of 45 minutes on the date of service in preparation, delivery, and documentation ofthe care provided to Jh Fields Jr. excluding any time spent in the performance of separately billed services. LATRICE Yanez, Department of Cardiology This chart was completed in part utilizing [employer] Speech Voice Recognition Software. Grammatical errors, random word insertions, prounoun errors, and incomplete sentences are an occasional consequence of this system due to software limitations, ambient noise, and hardware issues. Any formal questions or concerns about the content, text, or information contained within the body of this dictation should be directly addressed to the provider for clarification. documented in this encounter Nursing Notes * Mirna Rayo CMA - 05/22/2023 9:53 AM EST Examination Room: 7 Name: Jh Fields Jr. Date of : (1950) Reason for Visit: increased Interim Hospitalization(s): none Problems/Concerns:increase in episodes of A fib Chest Pain/SOB: denied chest pain. Having a hard time breathing and has been retaining fluid. My [facility] is a way you can talk to your provider online through e-mail. Would you like to sign up? I can activate it for you? ALREADY ACTIVE Patient was instructed to not get up on the exam table until directed and assisted by their provider; patient is to remain seated in the chair/ wheelchair/ exam table for fall prevention and safety reasons. Patient is aware to have assistance to step down off exam table with personnel. Patient voiced full comprehension of instructions. documented in this encounter Plan of Treatment Upcoming Encounters Date Type Department Care Team (Late st Contact Info) Description 05/23/2023 9:30 AM EST Office Visit Hematology/Oncology [address] [place] [address] [facility]anda Taylor [facility] [address] [facility] [place] [address] 05/23/2023 10:00 AM EST Hem/Onc Treatment [facility]emat[facility]Oncology Treatment, [place] [address] [facility] [address] Chandrika, Chair 5 Hem Onc [facility] [address] [facility] [place] [address] 06/11/2023 8:20 AM EST Office Visit [facility] [address] [place] [id number] Chema Combs MD [address] [place] [address] 09/19/2023 1:30 PM EDT Office Visit Cardiology, [facility] [address] [place] [address] Prashant Ruiz, [address] [place] [address] Scheduled Orders Name Type Priority Associated Diagnoses Orde r Schedule EKG EKG Routine PAF (paroxysmal atrial fibrillation) (HCC) HTN, goal below 140/90 Dyslipidemia, goal LDL below 100 Bilateral lower extremity edema Ordered: 05/22/2023 Scheduled Procedures Name Priority Associated Diagnoses Date/Ti [...] ASSESSMENT COMPLETED IN PAST YEAR FOR COPD 05/22/2024 05/22/2023 Colonoscopy 07/06/2026 07/06/2016, 07/06/2016 Colorectal Cancer Screening [...] 08/29/2016 LUNG CANCER SCREENING - USE SMARTSET [id number] Completed 10/01/2017 Zoster Vaccines Completed 12/14/2019, 09/24, [...] this encounter Medical Devices Implanted Type Area Shallot Cleaner Device Identifier Shelf Expiration Date Model / Serial / Lot Port Implant W/8f Poly Cath - [id number] Implanted:Qty : 1 on 02/12/2023 at [facility] Right: Chest CR BARD : PERIPHERAL VASCULAR [id number] 04/25/2024 [id number] / / [id number] documented as of this encounter Visit Diagnoses Diagnosis PAF (paroxysmal atrial fibrillation) (HCC)- Primary Atrial fibrillation HTN, goal below 140/90 Unspecified essential hypertension Dyslipidemia, goal LDL below 100 Other and unspecified hyperlipidemia Bilateral lower extremity edema Edema Fluid retention Other fluid overload documented in this encounter Advance Directives Latest Code Status on File Code Status Date Activated Date Inactivated Comments Full Code 12/27/2022 3:40 PM 01/01/2023 8:39 PM This or aj reflects the patients wishes and were consensually agreed upon. Question Answer Comments Discussion of Advance Directives occurred with: Patient Care Teams Commissioned [employer] Officer Relationship Specialty Start Date End Date Chema Combs MD [address] [facility] [place] [address] PCP - General Family Medicine 07/02/18 documented as of this encounter"
--- OUTSIDE RECORDS SUMMARY | 2023-05-22 21:33 | External Medical Summary ---
Author Name Unknown Address Unknown Organization [facility] [address] [place] [id number] Laboratory Report Ordering Provider Test Date Status MARLON ORTEGA 05/22/2023 09:14:26 Final Observation Date Value Abnormality Reference (Units ) Status BUN 05/22/2023 09:14:26 28 Above high normal 6-20 (mg/dL) Final Creatinine 05/22/2023 09:14:26 1.6 Above high normal 0.6-1.2 (mg/dL) Final Glomerular filtration rate/1.73 sq M.predicted [Volume Rate/Area] in Serum, Plasma or Blood by Creatinine-based formula (CKD-EPI) 05/22/2023 09:14:26 45 Below low normal >=60 (mL/min) Final eGFR is calculated based on the CKD-EPI 2020 equation SODIUM 05/22/2023 09:14:26 139 135-146 (m mol/L) Final Potassium 05/22/2023 09:14:26 4.5 3.5-5.1 (m mol/L) Final Cl 05/22/2023 09:14:26 102 98-107 (mm ol/L) Final CO2 05/22/2023 09:14:26 23 22-32 (mmo l/L) Final Anion gap 05/22/2023 09:14:26 14 7-15 (mmol /L) Final Glucose 05/22/2023 09:14:26 184 Above high normal 70 -120 (mg/dL) Final Albumin 05/22/2023 09:14:26 3.3 Below low normal 3.8 -5.0 (g/dL) Final AST (Aspartate aminotransferase) 05/22/2023 09:14:26 38 10-50 (U/L) Fin al Alk Phos 05/22/2023 09:14:26 134 Above high normal 35 -130 (U/L) Final Bilirubin, Total 05/22/2023 09:14:26 0.3 <=1 .2 (mg/dL) Final Calcium 05/22/2023 09:14:26 8.8 8.4-10.2 ( mg/dL) Final Protein 05/22/2023 09:14:26 5.4 Below low normal 6.0 -8.3 (g/dL) Final ALT (Alanine aminotransferase) 05/22/2023 09:14:26 21 10-50 (U/L) Donell matthew Performing Location [facility] [address] [facility] [id number]
[2023-05-23 03:09] LABS: Hematocrit (blood only) 24.7 % (42.0-52.0); Hemoglobin 8.7 g/dl (14.0-18.0)
[2023-05-23 05:33] LABS: Hematocrit (blood only) 24.3 % (42.0-52.0); Hemoglobin 8.4 g/dl (14.0-18.0); Mean Corpuscular Hemoglobin 33.9 pg (25.0-34.0); Mean Corpuscular Hgb Conc 34.6 g/dL (32.0-36.0); Mean Platelet Volume 9.6 fL (9.4-12.4); Platelet Count 283 K/uL (130-400); RDW Coefficient of Variation 20.1 % (11.5-14.5); RDW Standard Deviation 67.2 fL (36.4-46.3); Red Blood Count 2.48 M/uL (4.70-6.10); White Blood Count 8.99 K/ul (4.8-10.8)
[2023-05-23 05:42] LABS: BUN Creatinine Ratio 18.2 (10-20); Calcium 8.2 mg/dl (8.6-10.3); Creatinine Clr Calc Pharmacy 56.5 ml/min; Est GFR (Non-African American) 46.6 ml/min; Magnesium 1.3 mg/dl (1.7-2.4); Phosphorus 3.1 mg/dl (2.5-4.9); Potassium 3.8 mmol/L (3.5-5.1)
[2023-05-23 06:37] LABS: Anisocytosis Present; Basophils # (auto) 0.02 K/uL (0.00-0.20); Basophils % (auto) 0.2 %; Eosinophils # (auto) 0.06 K/uL (0.00-0.50); Eosinophils % (auto) 0.7 %; Immature Granulocytes # (auto) 0.11 K/uL (0.01-0.20); Immature Granulocytes % (auto) 1.2 %; Lymphocytes # (auto) 5.56 K/uL (1.20-3.40); Lymphocytes % (auto) 61.8 %; Monocytes # (auto) 1.57 K/uL (0.11-0.59); Monocytes % (auto) 17.5 %; Neutrophils # (auto) 1.67 K/uL (1.40-6.50); Neutrophils % (auto) 18.6 %; Polychromasia 2+
[2023-05-23] MEDS: APIXABAN 5 MG TABLET PO SCH ×2 (08:50→20:00)
[2023-05-23] MEDS: ASPIRIN 81 MG ECTAB PO SCH (08:51)
[2023-05-23] MEDS: CHOLECALCIFEROL 1,000 UNITS 25 MCG TAB PO SCH (08:52)
[2023-05-23] MEDS: ATORVASTATIN 20 MG TAB PO SCH (08:52)
[2023-05-23] MEDS: CITALOPRAM 20 MG TAB PO SCH (08:53)
[2023-05-23] MEDS: FLUTICASONE FUROATE 100MCG 14 PUFFS/INHALER INH SCH (08:54)
[2023-05-23] MEDS: FUROSEMIDE 40 MG/4 ML VIAL IV SCH ×2 (08:58→17:01)
[2023-05-23] MEDS ORDERED: dilTIAZem HCL 120 MG CAPCR PO SCH (09:00)
[2023-05-23] MEDS ORDERED: NON-FORMULARY MEDICATION (Fluticasone-Umeclidin-Vilanter [Trelegy Ellipta] 100-62.5-25 mcg INH SCH (09:00)
[2023-05-23] MEDS: METOPROLOL SUCC 25MG EXT REL TAB PO SCH ×2 (09:01→19:40)
[2023-05-23] MEDS: POTASSIUM CHLORIDE 10 MEQ TABCR PO SCH (09:01)
[2023-05-23] MEDS: UMECLIDINIUM/VILANTEROL 62.5/25MCG 7 PUFFS/INHALER INH SCH (09:02)
[2023-05-23] MEDS: MAGNESIUM SULFATE / D5W 1 GM/100 ML BAG IV SCH ×3 (09:34→13:40)
[2023-05-23] MEDS: ACETAMINOPHEN 500 MG TAB PO PRN (13:12)
[2023-05-23] MEDS ORDERED: POTASSIUM CHLORIDE CRTAB 20 MEQ TABCR PO ONE (13:55)
--- NOTE | 2023-05-23 14:14 | Cardiology Progress Note ---
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 Issues improving post transfusion of pRBC's as well as with utilization of IV furosemide. Potassium and magnesium are being replaced appropriately. Continue IV furosemide as presently prescribed. Medication regimen for PAF simplified this admission (diltiazem 120 mg/day discontinued. Beta-mihir changed/increased to metoprolol succinate at 75 mg BID. Continue Eliquis anticoagulation. OK to discontinue aspirin from a cardiac standpoint. Admission and Anticipated Discharge Date Admission Date: May 22, 2023 Supervising Physician Co-Signing Physician Notes 72-year-old male presented to the emergency department secondary to weight gain, fluid retention, shortness of breath. Admitted due to symptomatic anemia and volume overload with hypoalbuminemia and possible diastolic heart failure. Clinically improved with transfusion of packed red blood cells and IV Lasix. PE: Hypertensive. GEN: NAD, AAO x3. Heart: Regular rhythm, normal S1-S2. 1/6 systolic ejection murmur heard best at the base. Lungs: Diminished breath sounds at the bases bilaterally. No rhonchi or wheeze. Extremities: Mild, 1+ bilateral pedal and pretibial edema. A/P: Agree with above PA-C history, physical exam, assessment and plan. Echocardiogram demonstrated preserved LV systolic function without significant valvular pathology and mild diastolic dysfunction. Multifactorial volume overload secondary to hypoalbuminemia, and chemotherapeutic agents. Continue IV furosemide 40 mg twice daily. Agree with transition of diltiazem with titration of metoprolol succinate. Continue Eliquis as ordered. Monitor daily weight, fluid balance, GFR, and electrolytes. Monitor telemetry. Subjective Patient seen and examined. Chart, medications, and telemetry reviewed. at bedside. Feels better overall. No palpitations. Improved strength. Abdominal bloating and lower extremity peripheral edema have improved but not resolved. No chest pain. No orthopnea or PND. Telemetry: Sinus in the 70's with a first degree AV block. Review of Systems Review of Systems: Complete review of systems is otherwise as stated above, negative, or noncontributory. Physical Exam Physical Exam: General: A&Ox3. NAD. Skin: Pale HENT: Normocephalic. Atraumatic. Eyes: PER. Conjunctiva pink, sclera pale. Neck: No JVD. Heart: Irregular at 74 bpm. No murmur appreciated. No rub. Chest: Right-sided a port Lungs: Diminished. Decreased. Clear. No wheeze. Abdomen: +BS. Soft. Nondistended. Nontender. No organomegaly. Extremities: 1+ edema into the thighs. No clubbing. No cyanosis. Limited neurological examination is without focal deficits. Pulses: radial=2/4, posterior tibial=0/4. Results & Data Vital Signs (Past 12 Hours) Vital Signs Pulse Pulse Resp BP Pulse Ox O2 Del Method O2 Flow Rate 05/23/23 13:42 77 22 150/82 H 98 Nasal Cannula 2 05/23/23 09:00 85 15 163/92 H 95 Nasal Cannula 05/23/23 06:55 77 05/23/23 03:00 86 22 184/84 H 92 Room Air Laboratory Results Cardiac Enzymes 05/22/23 Range/Units 13:56 Troponin I High Sens 19.3 (0-20) pg/ml CBC 05/22/23 05/23/23 05/23/23 Range/Units 19:55 03:00 04:30 WBC 8.99 (4.8-10.8) K/ul RBC 2.48 L (4.70-6.10) M/uL Hgb 7.3 L 8.7 L 8.4 L (14.0-18.0) g/dl Hct 20.5 L* 24.7 L 24.3 L (42.0-52.0) % Plt Count 283 (130-400) K/uL Neut # (Auto) 1.67 (1.40-6.50) K/uL Lymph # (Auto) 5.56 H (1.20-3.40) K/uL Mcpherson # (Auto) 1.57 H (0.11-0.59) K/uL Eos # (Auto) 0.06 (0.00-0.50) K/uL Baso # (Auto) 0.02 (0.00-0.20) K/uL Comprehensive Metabolic Panel 05/23/23 Range/Units 04:30 Sodium 138 (136-145) mmol/L Potassium 3.8 (3.5-5.1) mmol/L Chloride 104 (98-107) mmol/L Carbon Dioxide 28 (21-32) mmol/L BUN 27 H (6-23) mg/dl Creatinine 1.48 H (0.6-1.4) mg/dl Glucose 97 (70-99(Fasting)) mg/dl Calcium 8.2 L (8.6-10.3) mg/dl Intake and Output 05/22/23 05/23/23 05/23/23 22:59 06:59 14:59 Intake Total 310 / 620 310 / 620 200 / 200 Output Total 800 / 1425 325 / 1425 830 / 830 Balance -490 / -805 -15 / -805 -630 / -630 Intake: IV 200 / 200 Magnesium Sulfate / D5w 1 gm In 200 / 200 100 ml @ 50 mls/hr IV Q2H [facility] Rx#:[id number] Intake (Blood Product) Amt 310 / 620 310 / 620 Packed Cells, Leukored, Irrad 310 / 310 Unit [id number] Packed Cells, Leukored, Irrad 0 / 310 310 / 310 Unit [id number] Output: Urine 800 / 1425 325 / 1425 830 / 830 Other: Weight 105 kg Weight Measurement Method Built in [facility]
--- NOTE | 2023-05-23 15:17 | Hospitalist Progress Note ---
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 --ECHO: Mild concentric LVH but no regional wall motion abnormality. Left ventricle systolic function is normal. EF 65 to 70%. Right ventricle is normal in size and function. Arctic valve sclerosis mild, without significant aortic valvular stenosis. Grade 1 diastolic dysfunction. --BNP elevated Diltiazem discontinued Metoprolol succinate dose increased to 75 mg twice a day Continue IV Lasix Appreciate cardiology input Monitor I's and O's, daily weight, renal function, volume status (4) Mild congestive heart failure: Plan: Management as above Paroxysmal atrial fibrillation Continue metoprolol On Eliquis for anticoagulation (5) COPD with emphysema: Plan: Chronic oxygen dependency --on 1 to 2 L at baseline No signs of acute exacerbation Continue home inhalers (6) CLL (chronic lymphocytic leukemia): Plan: History of CLL Needs follow-up with oncology on discharge (7) PVD (peripheral vascular disease): Plan: Continue aspirin, statin DVT Px: On Eliquis CODE STATUS Full Code Admission and Anticipated Discharge Date Admission Date: May 22, 2023 Subjective Patient is seen and examined at bedside Shortness of breath much improved Leg edema slowly improving Denies any chest pain, nausea, vomiting, dizziness, abdominal pain Discussed with patient and family at bedside No other complaints Review of Systems Review of Systems: All systems reviewed & are unremarkable except as noted in Subjective Physical Exam Physical Exam: Physical Exam: Vitals signs as noted above General Appearance:Obese, no apparent distress Head: normocephalic, Atraumatic Eyes: normal inspection, EOMI Neck: supple, Trachea midline Respiratory/Chest: Decreased breath sounds, CTA, No accessory muscle use Cardiovascular: S1, S2, No murmur Abdomen/GI:Soft, Non tender, Bowel sounds present Extremities/Musculoskeletal:normal inspection, 2+ B/L LE edema Neurologic/Psych:AAOX3, grossly no focal neurological deficits Skin: normal color, warm Results & Data Results & Data Vital Signs (Past 12 Hours) Vital Signs Pulse Pulse Resp BP Pulse Ox O2 Del Method O2 Flow Rate 05/23/23 13:42 77 22 150/82 H 98 Nasal Cannula 2 05/23/23 09:00 85 15 163/92 H 95 Nasal Cannula 05/23/23 06:55 77 Laboratory Results Short CBC 05/22/23 05/23/23 05/23/23 Range/Units 19:55 03:00 04:30 WBC 8.99 (4.8-10.8) K/ul Hgb 7.3 L 8.7 L 8.4 L (14.0-18.0) g/dl Hct 20.5 L* 24.7 L 24.3 L (42.0-52.0) % Plt Count 283 (130-400) K/uL BMP 05/23/23 04:30 Sodium 138 Potassium 3.8 Chloride 104 Carbon Dioxide 28 BUN 27 H Creatinine 1.48 H Glucose 97 Calcium 8.2 L
[2023-05-24] MEDS: METOPROLOL SUCC 25MG EXT REL TAB PO SCH ×2 (08:10→20:33)
[2023-05-24] MEDS: ATORVASTATIN 20 MG TAB PO SCH (08:11)
[2023-05-24] MEDS: CHOLECALCIFEROL 1,000 UNITS 25 MCG TAB PO SCH (08:11)
[2023-05-24] MEDS: ASPIRIN 81 MG ECTAB PO SCH (08:11)
[2023-05-24] MEDS: CITALOPRAM 20 MG TAB PO SCH (08:12)
[2023-05-24] MEDS: POTASSIUM CHLORIDE 10 MEQ TABCR PO SCH (08:12)
[2023-05-24] MEDS: APIXABAN 5 MG TABLET PO SCH ×2 (08:12→20:33)
[2023-05-24] MEDS: FLUTICASONE FUROATE 100MCG 14 PUFFS/INHALER INH SCH (08:13)
[2023-05-24] MEDS: UMECLIDINIUM/VILANTEROL 62.5/25MCG 7 PUFFS/INHALER INH SCH (08:13)
[2023-05-24] MEDS: FUROSEMIDE 40 MG/4 ML VIAL IV SCH ×2 (08:18→16:53)
[2023-05-24] MEDS: ACETAMINOPHEN 500 MG TAB PO PRN ×2 (08:23→18:34)
[2023-05-24 09:21] LABS: Hematocrit (blood only) 26.4 % (42.0-52.0); Hemoglobin 9.1 g/dl (14.0-18.0); Mean Corpuscular Hgb Conc 34.5 g/dL (32.0-36.0); Mean Corpuscular Volume 98.5 fL (80.0-100.0); Mean Platelet Volume 9.2 fL (9.4-12.4); Platelet Count 361 K/uL (130-400); RDW Coefficient of Variation 19.9 % (11.5-14.5); Red Blood Count 2.68 M/uL (4.70-6.10); White Blood Count 10.32 K/ul (4.8-10.8)
[2023-05-24 09:38] LABS: BUN Creatinine Ratio 17.4 (10-20); Calcium 8.6 mg/dl (8.6-10.3); Creatinine Clr Calc Pharmacy 60.6 ml/min; Est GFR (African American) 58.8 ml/min; Est GFR (Non-African American) 50.7 ml/min; Magnesium 1.8 mg/dl (1.7-2.4); Potassium 4.1 mmol/L (3.5-5.1)
--- NOTE | 2023-05-24 13:13 | Cardiology Progress Note ---
Date of Service May 24, 2023 Assessment & Plan (1) Fluid overload: (2) Symptomatic anemia: (3) Adenocarcinoma of gallbladder: (4) COPD with emphysema: (5) PAF (paroxysmal atrial fibrillation): Plan 72-year-old male admitted with symptomatic anemia as well as multifactorial volume overload (symptomatic anemia, hypoalbuminemia, chemotherapeutic agents, possible diastolic congestive heart failure, Diltiazem). Issues improving post transfusion of pRBC's as well as with utilization of IV furosemide. Volume status is approaching normovolemia. Recommend continuation of IV furosemide through today then transition to oral in AM. Medication regimen for PAF simplified this admission (diltiazem 120 mg/day discontinued. Lopressor 50 BID changed to metoprolol succinate 75 mg BID. Continue Eliquis anticoagulation. OK to discontinue aspirin from a cardiac standpoint. Please contact with any questions or concerns. Admission and Anticipated Discharge Date Admission Date: May 22, 2023 Supervising Physician Co-Signing Physician Notes 72-year-old male presented to the emergency department secondary to weight gain, fluid retention, shortness of breath. Admitted due to symptomatic anemia and volume overload with hypoalbuminemia and possible diastolic heart failure. Clinically improved with transfusion of packed red blood cells and IV Lasix. Patient denies chest pain or shortness of breath at rest. Telemetry reveals sinus rhythm in the 70s. PE: Hypertensive. GEN: NAD, AAO x3. Heart: Regular rhythm, normal S1-S2. 1/6 systolic ejection murmur heard best at the base. Lungs: Diminished breath sounds at the bases bilaterally. No rhonchi or wheeze. Extremities: Mild, 1+ bilateral pedal and pretibial edema. A/P: Agree with above PA-C history, physical exam, assessment and plan. Echocardiogram demonstrated preserved LV systolic function without significant valvular pathology and mild diastolic dysfunction. Multifactorial volume overload secondary to hypoalbuminemia, and chemotherapeutic agents. Continue IV furosemide 40 mg twice daily for additional 24 hours. Consider transition to oral diuretic therapy in a.m. 05/25/2023. Diltiazem discontinued with titration of metoprolol succinate. Continue Eliquis as ordered. Monitor daily weight, fluid balance, GFR, and electrolytes. Subjective Patient seen and examined. Chart, medications, and telemetry reviewed. at bedside. Patient notes feeling considerably better today. Breathing has improved. Appetite has improved. Fluid has significantly improved. No chest pain. No orthopnea or PND. No dizziness or syncope. Telemetry: Sinus in the 70's occasional ectopy only Review of Systems Review of Systems: Complete review of systems is otherwise as stated above, negative, or noncontributory. Physical Exam Physical Exam: General: A&Ox3. NAD. Skin: Pale HENT: Normocephalic. Atraumatic. Eyes: PER. Conjunctiva pink, sclera pale. Neck: No JVD. Heart: Irregular at 70 bpm. No murmur appreciated. No rub. Chest: Right-sided a port Lungs: Diminished. Decreased. Clear. No wheeze. Abdomen: +BS. Soft. Nondistended. Nontender. No organomegaly. Extremities: Mild edema. No clubbing. No cyanosis. Limited neurological examination is without focal deficits. Pulses: radial=2/4, posterior tibial=0/4. Results & Data Vital Signs (Past 12 Hours) Vital Signs Temp Pulse Pulse Resp BP BP Pulse Ox 05/24/23 11:31 36.4 C L 73 14 160/74 H 98 05/24/23 08:20 05/24/23 07:52 36.7 C 76 15 164/79 H 97 05/24/23 07:24 73 05/24/23 02:59 36.9 C 82 18 136/67 93 O2 Del Method O2 Flow Rate 05/24/23 11:31 Nasal Cannula 1 05/24/23 08:20 Nasal Cannula 1 05/24/23 07:52 Nasal Cannula 1 05/24/23 07:24 05/24/23 02:59 Nasal Cannula 1 Laboratory Results CBC 05/24/23 Range/Units 08:29 WBC 10.32 (4.8-10.8) K/ul RBC 2.68 L (4.70-6.10) M/uL Hgb 9.1 L (14.0-18.0) g/dl Hct 26.4 L (42.0-52.0) % Plt Count 361 (130-400) K/uL Comprehensive Metabolic Panel 05/24/23 Range/Units 08:29 Sodium 136 (136-145) mmol/L Potassium 4.1 (3.5-5.1) mmol/L Chloride 101 (98-107) mmol/L Carbon Dioxide 30 (21-32) mmol/L BUN 24 H (6-23) mg/dl Creatinine 1.38 (0.6-1.4) mg/dl Glucose 98 (70-99(Fasting)) mg/dl Calcium 8.6 (8.6-10.3) mg/dl Intake and Output 05/23/23 05/24/23 05/24/23 22:59 06:59 14:59 Intake Total 220 / 620 200 / 620 Output Total 820 / 2200 550 / 2200 Balance -600 / -1580 -350 / -1580 Intake: IV 100 / 300 Magnesium Sulfate / D5w 1 gm In 100 / 300 100 ml @ 50 mls/hr IV Q2H [facility] Rx#:[id number] Oral 120 / 320 200 / 320 Output: Urine 820 / 2200 550 / 2200
--- NOTE | 2023-05-24 19:12 | Hospitalist Progress Note ---
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 --ECHO: Mild concentric LVH but no regional wall motion abnormality. Left ventricle systolic function is normal. EF 65 to 70%. Right ventricle is normal in size and function. Arctic valve sclerosis mild, without significant aortic valvular stenosis. Grade 1 diastolic dysfunction. --BNP elevated Diltiazem discontinued Metoprolol succinate dose increased to 75 mg twice a day Continue IV Lasix Appreciate cardiology input Monitor I's and O's, daily weight, renal function, volume status Continue diuresis. Likely transition to p.o. diuretics tomorrow Respiratory status seem to be back to baseline (4) Mild congestive heart failure: Plan: Management as above Paroxysmal atrial fibrillation Continue metoprolol On Eliquis for anticoagulation (5) COPD with emphysema: Plan: Chronic oxygen dependency --on 1 to 2 L at baseline No signs of acute exacerbation Continue home inhalers (6) CLL (chronic lymphocytic leukemia): Plan: History of CLL Needs follow-up with oncology on discharge (7) PVD (peripheral vascular disease): Plan: Continue aspirin, statin DVT Px: On Eliquis CODE STATUS Full Code Admission and Anticipated Discharge Date Admission Date: May 22, 2023 Subjective Patient is seen and examined at bedside Subjectively feels well No new complaints Less oxygen requirement today Leg edema improving Denies any chest pain, nausea, vomiting, dizziness, abdominal pain Review of Systems Review of Systems: All systems reviewed & are unremarkable except as noted in Subjective Physical Exam Physical Exam: Physical Exam: Vitals signs as noted above General Appearance:Obese, no apparent distress Head: normocephalic, Atraumatic Eyes: normal inspection, EOMI Neck: supple, Trachea midline Respiratory/Chest: Decreased breath sounds, CTA, No accessory muscle use Cardiovascular: S1, S2, No murmur Abdomen/GI:Soft, Non tender, Bowel sounds present Extremities/Musculoskeletal:normal inspection, 2+ B/L LE edema Neurologic/Psych:AAOX3, grossly no focal neurological deficits Skin: normal color, warm Results & Data Results & Data Vital Signs (Past 12 Hours) Vital Signs Temp Pulse Pulse Resp BP Pulse Ox O2 Del Method 05/24/23 15:46 36.3 C L 74 15 141/69 H 98 Nasal Cannula 05/24/23 15:00 83 05/24/23 11:31 36.4 C L 73 14 160/74 H 98 Nasal Cannula 05/24/23 08:20 Nasal Cannula 05/24/23 07:52 36.7 C 76 15 164/79 H 97 Nasal Cannula 05/24/23 07:24 73 O2 Flow Rate 05/24/23 15:46 1 05/24/23 15:00 05/24/23 11:31 1 05/24/23 08:20 1 05/24/23 07:52 1 05/24/23 07:24 Laboratory Results Short CBC 05/24/23 Range/Units 08:29 WBC 10.32 (4.8-10.8) K/ul Hgb 9.1 L (14.0-18.0) g/dl Hct 26.4 L (42.0-52.0) % Plt Count 361 (130-400) K/uL BMP 05/24/23 08:29 Sodium 136 Potassium 4.1 Chloride 101 Carbon Dioxide 30 BUN 24 H Creatinine 1.38 Glucose 98 Calcium 8.6
[2023-05-25] MEDS ORDERED: HEPARIN 100 UNIT/ML 5ML FLUSH FLUSH PRN (03:42)
[2023-05-25] MEDS: FLUTICASONE FUROATE 100MCG 14 PUFFS/INHALER INH SCH (09:07)
[2023-05-25] MEDS: CHOLECALCIFEROL 1,000 UNITS 25 MCG TAB PO SCH (09:08)
[2023-05-25] MEDS: ASPIRIN 81 MG ECTAB PO SCH (09:08)
[2023-05-25] MEDS: METOPROLOL SUCC 25MG EXT REL TAB PO SCH ×2 (09:08→19:52)
[2023-05-25] MEDS: ATORVASTATIN 20 MG TAB PO SCH (09:08)
[2023-05-25] MEDS: UMECLIDINIUM/VILANTEROL 62.5/25MCG 7 PUFFS/INHALER INH SCH (09:09)
[2023-05-25] MEDS: APIXABAN 5 MG TABLET PO SCH ×2 (09:09→19:53)
[2023-05-25 09:12] LABS: Hematocrit (blood only) 27.9 % (42.0-52.0); Hemoglobin 9.5 g/dl (14.0-18.0); Mean Corpuscular Hemoglobin 33.6 pg (25.0-34.0); Mean Corpuscular Hgb Conc 34.1 g/dL (32.0-36.0); Mean Corpuscular Volume 98.6 fL (80.0-100.0); Mean Platelet Volume 9.2 fL (9.4-12.4); Platelet Count 395 K/uL (130-400); RDW Coefficient of Variation 19.3 % (11.5-14.5); RDW Standard Deviation 69.2 fL (36.4-46.3); Red Blood Count 2.83 M/uL (4.70-6.10)
[2023-05-25] MEDS: CITALOPRAM 20 MG TAB PO SCH (09:12)
[2023-05-25] MEDS: FUROSEMIDE 40 MG/4 ML VIAL IV SCH (09:18)
[2023-05-25] MEDS: POTASSIUM CHLORIDE 10 MEQ TABCR PO SCH (09:19)
[2023-05-25 09:27] LABS: BUN Creatinine Ratio 19.6 (10-20); Calcium 8.8 mg/dl (8.6-10.3); Creatinine Clr Calc Pharmacy 55.9 ml/min; Est GFR (African American) 53.6 ml/min; Est GFR (Non-African American) 46.3 ml/min; Magnesium 1.8 mg/dl (1.7-2.4); Potassium 4.1 mmol/L (3.5-5.1)
[2023-05-25 15:38] LABS: Adenovirus PCR Not Detected (NotDetected); Bordetella parapertussis PCR Not Detected (NotDetected); Bordetella pertussis PCR Not Detected (NotDetected); Chlamydia pneumoniae PCR Not Detected (NotDetected); Coronavirus 229E PCR Not Detected (NotDetected); Coronavirus CoV-2 (COVID19)PCR Not Detected (NotDetected); Coronavirus HKU1 PCR Not Detected (NotDetected); Coronavirus NL63 PCR Not Detected (NotDetected); Coronavirus OC43PCR Not Detected (NotDetected); Human Metapneumovirus PCR Not Detected (NotDetected); Influenza A PCR Not Detected (NotDetected); Influenza B PCR Not Detected (NotDetected); Mycoplasma pneumoniae PCR Not Detected (NotDetected); Parainfluenza Virus 1 PCR Not Detected (NotDetected); Parainfluenza Virus 2 PCR Not Detected (NotDetected); Parainfluenza Virus 3 PCR Not Detected (NotDetected); Parainfluenza Virus 4 PCR Not Detected (NotDetected); Respiratory Syncytial VirusPCR Not Detected (NotDetected); Rhinovirus/Enterovirus PCR Not Detected (NotDetected)
--- NOTE | 2023-05-25 20:12 | Hospitalist Progress Note ---
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 --ECHO: Mild concentric LVH but no regional wall motion abnormality. Left ventricle systolic function is normal. EF 65 to 70%. Right ventricle is normal in size and function. Arctic valve sclerosis mild, without significant aortic valvular stenosis. Grade 1 diastolic dysfunction. --BNP elevated Diltiazem discontinued Metoprolol succinate dose increased to 75 mg twice a day Received IV Lasix Appreciate cardiology input Monitor I's and O's, daily weight, renal function, volume status Respiratory status seem to be back to baseline Diuresed well Transition IV Lasix to p.o. Lasix tomorrow Likely discharge home tomorrow Needs follow-up with cardiology on discharge (4) Mild congestive heart failure: Plan: Management as above Paroxysmal atrial fibrillation Continue metoprolol On Eliquis for anticoagulation (5) COPD with emphysema: Plan: Chronic oxygen dependency --on 1 to 2 L at baseline No signs of acute exacerbation Continue home inhalers (6) CLL (chronic lymphocytic leukemia): Plan: History of CLL Needs follow-up with oncology on discharge (7) PVD (peripheral vascular disease): Plan: Continue aspirin, statin DVT Px: On Eliquis CODE STATUS Full Code Admission and Anticipated Discharge Date Admission Date: May 22, 2023 Subjective Patient is seen and examined at bedside Feels well, Offers no complaints Denies any chest pain, nausea, vomiting, dizziness, abdominal pain Diuresed well Review of Systems Review of Systems: All systems reviewed & are unremarkable except as noted in Subjective Physical Exam Physical Exam: Physical Exam: Vitals signs as noted above General Appearance:Obese, no apparent distress Head: normocephalic, Atraumatic Eyes: normal inspection, EOMI Neck: supple, Trachea midline Respiratory/Chest: Decreased breath sounds, CTA, No accessory muscle use Cardiovascular: S1, S2, No murmur Abdomen/GI:Soft, Non tender, Bowel sounds present Extremities/Musculoskeletal:normal inspection, 2+ B/L LE edema Neurologic/Psych:AAOX3, grossly no focal neurological deficits Skin: normal color, warm Results & Data Results & Data Vital Signs (Past 12 Hours) Vital Signs Temp Pulse Resp BP BP Pulse Ox O2 Del Method 05/25/23 19:29 36.7 C 77 18 158/83 H 96 Nasal Cannula 05/25/23 16:07 36.6 C 73 18 171/86 H 95 Nasal Cannula 05/25/23 11:40 36.9 C 71 18 162/89 H 99 Nasal Cannula O2 Flow Rate 05/25/23 19:29 1 05/25/23 16:07 1 05/25/23 11:40 1 Laboratory Results Short CBC 05/25/23 Range/Units 08:43 WBC 11.80 H (4.8-10.8) K/ul Hgb 9.5 L (14.0-18.0) g/dl Hct 27.9 L (42.0-52.0) % Plt Count 395 (130-400) K/uL BMP 05/25/23 08:43 Sodium 138 Potassium 4.1 Chloride 102 Carbon Dioxide 29 BUN 29 H Creatinine 1.48 H Glucose 104 H Calcium 8.8
[2023-05-26 07:07] LABS: Hematocrit (blood only) 26.6 % (42.0-52.0); Hemoglobin 9.1 g/dl (14.0-18.0)
[2023-05-26 07:33] LABS: BUN Creatinine Ratio 18.4 (10-20); Calcium 8.4 mg/dl (8.6-10.3); Creatinine Clr Calc Pharmacy 58.7 ml/min; Est GFR (African American) 56.9 ml/min; Est GFR (Non-African American) 49.1 ml/min; Magnesium 1.7 mg/dl (1.7-2.4); Potassium 4.3 mmol/L (3.5-5.1)
[2023-05-26] MEDS: CITALOPRAM 20 MG TAB PO SCH (07:58)
[2023-05-26] MEDS: ATORVASTATIN 20 MG TAB PO SCH (07:58)
[2023-05-26] MEDS: METOPROLOL SUCC 25MG EXT REL TAB PO SCH (07:58)
[2023-05-26] MEDS: CHOLECALCIFEROL 1,000 UNITS 25 MCG TAB PO SCH (07:58)
[2023-05-26] MEDS: ASPIRIN 81 MG ECTAB PO SCH (07:58)
[2023-05-26] MEDS: APIXABAN 5 MG TABLET PO SCH (07:59)
[2023-05-26] MEDS: FLUTICASONE FUROATE 100MCG 14 PUFFS/INHALER INH SCH (08:00)
[2023-05-26] MEDS: UMECLIDINIUM/VILANTEROL 62.5/25MCG 7 PUFFS/INHALER INH SCH (08:00)
[2023-05-26] MEDS: POTASSIUM CHLORIDE 10 MEQ TABCR PO SCH (08:02)
[2023-05-26] MEDS ORDERED: FUROSEMIDE 40 MG TAB PO SCH (09:00)
--- NOTE | 2023-05-26 13:25 | Hospitalist Progress Note ---
Date of Service May 26, 2023 Assessment & Plan (1) Symptomatic anemia: Plan: Anemia of chronic disease Likely secondary to chemotherapy S/P PRBC transfusion Hemoglobin stable post transfusion No evidence of bleeding Monitor CBC Hb Stable (2) Metastatic adenocarcinoma to liver: Plan: Adenocarcinoma of the liver was diagnosed in December 2022 On ongoing chemotherapy Last chemo was 1 week ago Follows with [facility] oncology as outpatient Hypomagnesemia Replete electrolytes as needed Monitor (3) Fluid overload: Plan: Volume overload Likely multifactorial secondary to symptomatic anemia, hypoalbuminemia, chemotherapeutic medications, possible diastolic heart failure --CXR: Emphysematous change with no active disease in the chest. --ECHO: Mild concentric LVH but no regional wall motion abnormality. Left ventricle systolic function is normal. EF 65 to 70%. Right ventricle is normal in size and function. Arctic valve sclerosis mild, without significant aortic valvular stenosis. Grade 1 diastolic dysfunction. --BNP elevated Diltiazem discontinued Metoprolol succinate dose increased to 75 mg twice a day Received IV Lasix Appreciate cardiology input Monitor I's and O's, daily weight, renal function, volume status Respiratory status seem to be back to baseline Diuresed well Needs follow-up with cardiology on discharge Plan to discharge on Lasix 40 mg daily (4) Mild congestive heart failure: Plan: Management as above Paroxysmal atrial fibrillation Continue metoprolol On Eliquis for anticoagulation (5) COPD with emphysema: Plan: Chronic oxygen dependency --on 1 to 2 L at baseline No signs of acute exacerbation Continue home inhalers (6) CLL (chronic lymphocytic leukemia): Plan: History of CLL Needs follow-up with oncology on discharge (7) PVD (peripheral vascular disease): Plan: Continue aspirin, statin DVT Px: On Eliquis CODE STATUS Full Code Admission and Anticipated Discharge Date Admission Date: May 22, 2023 Subjective Patient is seen and examined at bedside States doing well Denies any chest pain, nausea, vomiting, dizziness, abdominal pain Leg edema much improved Plan to be discharged home today Review of Systems Review of Systems: All systems reviewed & are unremarkable except as noted in Subjective Physical Exam Physical Exam: Physical Exam: Vitals signs as noted above General Appearance:Obese, no apparent distress Head: normocephalic, Atraumatic Eyes: normal inspection, EOMI Neck: supple, Trachea midline Respiratory/Chest: Decreased breath sounds, CTA, No accessory muscle use Cardiovascular: S1, S2, No murmur Abdomen/GI:Soft, Non tender, Bowel sounds present Extremities/Musculoskeletal:normal inspection, 1-2+ B/L LE edema Neurologic/Psych:AAOX3, grossly no focal neurological deficits Skin: normal color, warm Results & Data Results & Data Vital Signs (Past 12 Hours) Vital Signs Temp Pulse Pulse Resp BP BP Pulse Ox 05/26/23 11:46 36.7 C 74 18 154/93 H 97 05/26/23 08:00 05/26/23 07:49 36.7 C 73 18 156/81 H 97 05/26/23 07:30 74 05/26/23 03:25 36.9 C 77 17 148/79 H 96 05/26/23 03:13 71 O2 Del Method O2 Flow Rate 05/26/23 11:46 Nasal Cannula 1 05/26/23 08:00 Nasal Cannula 2 05/26/23 07:49 Nasal Cannula 1 05/26/23 07:30 05/26/23 03:25 Room Air 05/26/23 03:13 Laboratory Results Short CBC 05/26/23 Range/Units 06:37 Hgb 9.1 L (14.0-18.0) g/dl Hct 26.6 L (42.0-52.0) % BMP 05/26/23 06:37 Sodium 137 Potassium 4.3 Chloride 101 Carbon Dioxide 30 BUN 26 H Creatinine 1.41 H Glucose 96 Calcium 8.4 L
--- NOTE | 2023-05-26 13:34 | Discharge Summary ---
Date of Service May 26, 2023 Admission HPI Per Admitting Provider He is a 72-year-old male with significant past medical history including COPD with emphysema, atrial fibrillation on Eliquis, GI history of CLL, peripheral vascular disease and also recently diagnosed adenocarcinoma of the liver in December of this year with metastasis and has been on chemotherapy every 2 weeks with 1 week off in between since January. He has had his chemotherapy about 1 week ago and he has been complaining of progressive shortness of breath with exertion for the last 1 to 2 weeks. He was noted to have increasing edema of the legs and mentions to have weight gain for about 10 pounds for the last 2 weeks or so. He denies any chest pain and/or palpitation. No abdominal pain nausea or vomiting, no fever and or chills. Denies any problem with urine or bowel habit. In ER he was noted to have a low hemoglobin of 7.1 without any evidence of upper and or lower GI bleed and chest x-ray evidence of probable mild congestive changes. From that point he was admitted to [facility] telemetry unit and he will be given 2 units of blood transfusion with adequate Lasix in between. Admission Exam Per Admitting Provider Physical Exam: Lying in bed comfortably but looks pale Constitutional: well developed, well nourished, + ill appearing and + obese ENMT: external ear and nose normal, oropharynx normal Neck: trachea midline, no thyromegaly Respiratory: no respiratory distress Auscultation: + diminished lung sounds and + crackles (Minimal crackles at the bases) Cardiovascular: Rate/Rhythm: regular rate and regular rhythm; not tachycardic Heart Sounds: normal S1 and normal S2; no murmur Extremities: + edema (1-2+ edema bilaterally) Gastrointestinal (Abdomen): Inspection/Auscultation: + abdomen distended and normal bowel sounds Percussion/Palpation: abdomen soft; abdomen nontender Musculoskeletal: No acute arthritis involving any of the joint Neurologic: normal touch/pain/proprioception and moves all extremities; no focal motor deficits Alert, awake and oriented x 3 Lymphatic: no cervical or axillary lymphadenopathy Principal Diagnosis Symptomatic anemia Fluid Overload Discharge Data Allergies Allergy/AdvReac Type Severity Reaction Status Date / Time lisinopril AdvReac Intermediate COUGH Verified 05/22/23 16:17 Consultations 05/22/23 13:04 ED Decision to Admit Stat 05/23/23 08:50 Consult Cardiology Routine Procedures Performed Laboratory Results WBC 11.80 K/ul (4.8-10.8) H 05/25/23 08:43 RBC 2.83 M/uL (4.70-6.10) L 05/25/23 08:43 Hgb 9.1 g/dl (14.0-18.0) L 05/26/23 06:37 Hct 26.6 % (42.0-52.0) L 05/26/23 06:37 MCV 98.6 fL (80.0-100.0) 05/25/23 08:43 MCH 33.6 pg (25.0-34.0) 05/25/23 08:43 MCHC 34.1 g/dL (32.0-36.0) 05/25/23 08:43 RDW Std Deviation 69.2 fL (36.4-46.3) H 05/25/23 08:43 RDW Coeff of [place] 19.3 % (11.5-14.5) H 05/25/23 08:43 Plt Count 395 K/uL (130-400) 05/25/23 08:43 MPV 9.2 fL (9.4-12.4) L 05/25/23 08:43 Immature Gran % (Auto) 1.2 % 05/23/23 04:30 Neut % (Auto) 18.6 % 05/23/23 04:30 Lymph % (Auto) 61.8 % 05/23/23 04:30 [place] % (Auto) 17.5 % 05/23/23 04:30 Eos % (Auto) 0.7 % 05/23/23 04:30 Baso % (Auto) 0.2 % 05/23/23 04:30 Neut # (Auto) 1.67 K/uL (1.40-6.50) 05/23/23 04:30 Lymph # (Auto) 5.56 K/uL (1.20-3.40) H 05/23/23 04:30 [place] # (Auto) 1.57 K/uL (0.11-0.59) H 05/23/23 04:30 Eos # (Auto) 0.06 K/uL (0.00-0.50) 05/23/23 04:30 Baso # (Auto) 0.02 K/uL (0.00-0.20) 05/23/23 04:30 Immature Gran # (Auto) 0.11 K/uL (0.01-0.20) 05/23/23 04:30 Polychromasia 2+ 05/23/23 04:30 Anisocytosis Present 05/23/23 04:30 PT 12.7 Seconds (9.0-12.0) H 05/22/23 11:40 INR 1.2 (0.9-1.1) H 05/22/23 11:40 APTT 30 Seconds (21-31) 05/22/23 11:40 PTT Ratio 1.1 05/22/23 11:40 Sodium 137 mmol/L (136-145) 05/26/23 06:37 Potassium 4.3 mmol/L (3.5-5.1) 05/26/23 06:37 Chloride 101 mmol/L (98-107) 05/26/23 06:37 Carbon Dioxide 30 mmol/L (21-32) 05/26/23 06:37 Anion Gap 6 (3-11) 05/26/23 06:37 BUN 26 mg/dl (6-23) H 05/26/23 06:37 Creatinine 1.41 mg/dl (0.6-1.4) H 05/26/23 06:37 Est Cr Clr Drug Dosing 58.7 ml/min 05/26/23 06:37 Est GFR ( Amer) 56.9 ml/min 05/26/23 06:37 Est GFR (Non-Af Amer) 49.1 ml/min 05/26/23 06:37 BUN/Creatinine Ratio 18.4 (10-20) 05/26/23 06:37 Glucose 96 mg/dl (70-99(Fasting)) 05/26/23 06:37 Calcium 8.4 mg/dl (8.6-10.3) L 05/26/23 06:37 Phosphorus 3.1 mg/dl (2.5-4.9) 05/23/23 04:30 Magnesium 1.7 mg/dl (1.7-2.4) 05/26/23 06:37 Total Bilirubin 0.5 mg/dl (0.2-1.0) 05/22/23 11:40 AST 30 U/L (13-39) 05/22/23 11:40 ALT 17 U/L (7-52) 05/22/23 11:40 Alkaline Phosphatase 129 U/L (34-104) H 05/22/23 11:40 Troponin I High Sens 19.3 pg/ml (0-20) 05/22/23 13:56 B-Natriuretic Peptide 581 pg/ml (0-100) H 05/22/23 11:40 Total Protein 5.8 gm/dl (6.0-8.3) L 05/22/23 11:40 Albumin 3.5 gm/dl (3.4-5.0) 05/22/23 11:40 Globulin 2.3 gm/dl (2.5-4.0) L 05/22/23 11:40 Albumin/Globulin Ratio 1.5 (0.9-2) 05/22/23 11:40 Adenovirus (PCR) Not Detected (NotDetected) 05/25/23 Unknown B. pertussis DNA (PCR) Not Detected (NotDetected) 05/25/23 Unknown B.parapertussis DNA PCR Not Detected (NotDetected) 05/25/23 Unknown C. pneumoniae DNA (PCR) Not Detected (NotDetected) 05/25/23 Unknown Coronavirus OC43 (PCR) Not Detected (NotDetected) 05/25/23 Unknown Coronavirus HKU1 (PCR) Not Detected (NotDetected) 05/25/23 Unknown Coronavirus 229E (PCR) Not Detected (NotDetected) 05/25/23 Unknown SARS-CoV-2 (PCR) Not Detected (NotDetected) 05/25/23 Unknown Coronavirus NL63 (PCR) Not Detected (NotDetected) 05/25/23 Unknown Human Metapneumovir PCR Not Detected (NotDetected) 05/25/23 Unknown Influenza Type A (PCR) Not Detected (NotDetected) 05/25/23 Unknown Influenza Type B (PCR) Not Detected (NotDetected) 05/25/23 Unknown M. pneumoniae (PCR) Not Detected (NotDetected) 05/25/23 Unknown Parainfluenza 1 (PCR) Not Detected (NotDetected) 05/25/23 Unknown Parainfluenza 2 (PCR) Not Detected (NotDetected) 05/25/23 Unknown Parainfluenza 3 (PCR) Not Detected (NotDetected) 05/25/23 Unknown Parainfluenza 4 (PCR) Not Detected (NotDetected) 05/25/23 Unknown RSV (RT-PCR) Negative (Neg) 05/22/23 12:53 RSV (PCR) Not Detected (NotDetected) 05/25/23 Unknown Entero/Rhino (PCR) Not Detected (NotDetected) 05/25/23 Unknown Blood Type A Positive 05/22/23 12:46 Blood Type Recheck A Positive 05/22/23 13:56 Antibody Screen NEGATIVE 05/22/23 12:46 Crossmatch See Detail 05/22/23 12:46 Impressions Chest X-Ray 05/22/23 11:08 SINGLE VIEW CHEST CLINICAL HISTORY: Atypical chest pain FINDINGS: A PA chest radiograph is compared to study dated 08/05/2018 and correlated with chest CT dated 02/13/2023. A right internal jugular central venous infusion port is unchanged in position. The cardiomediastinal silhouette is unremarkable. Emphysema and chronic interstitial thickening is similar to previous. There is mild bibasilar scarring/atelectasis. The lungs and pleural spaces are otherwise clear. No pneumothorax is seen. The skeletal structures are osteopenic. The bony thorax is grossly intact. IMPRESSION: Emphysematous change with no active disease in the chest. ACT 112: Negative or not required by law. Electronically signed by: Uriel Conrad M.D. 05/22/2023 11:56 AM Hospital Course (1) Symptomatic anemia: Anemia of chronic disease Likely secondary to chemotherapy S/P PRBC transfusion Hemoglobin stable post transfusion No evidence of bleeding Monitor CBC Hb Stable (2) Metastatic adenocarcinoma to liver: Adenocarcinoma of the liver was diagnosed in December 2022 On ongoing chemotherapy Last chemo was 1 week ago Follows with [facility] oncology as outpatient Hypomagnesemia Replete electrolytes as needed Monitor (3) Fluid overload: Volume overload Likely multifactorial secondary to symptomatic anemia, hypoalbuminemia, chemotherapeutic medications, possible diastolic heart failure --CXR: Emphysematous change with no active disease in the chest. --ECHO: Mild concentric LVH but no regional wall motion abnormality. Left ventricle systolic function is normal. EF 65 to 70%. Right ventricle is normal in size and function. Arctic valve sclerosis mild, without significant aortic valvular stenosis. Grade 1 diastolic dysfunction. --BNP elevated Diltiazem discontinued Metoprolol succinate dose increased to 75 mg twice a day Received IV Lasix Appreciate cardiology input Monitor I's and O's, daily weight, renal function, volume status Respiratory status seem to be back to baseline Diuresed well Needs follow-up with cardiology on discharge Plan to discharge on Lasix 40 mg daily (4) Mild congestive heart failure: Management as above Paroxysmal atrial fibrillation Continue metoprolol On Eliquis for anticoagulation (5) COPD with emphysema: Chronic oxygen dependency --on 1 to 2 L at baseline No signs of acute exacerbation Continue home inhalers (6) CLL (chronic lymphocytic leukemia): History of CLL Needs follow-up with oncology on discharge (7) PVD (peripheral vascular disease): Continue aspirin, statin DVT Px: On Eliquis CODE STATUS Full Code Total Time Total Time Spent Total Time Spent (In Minutes): 56 minutes Discharge Plan Discharge Items Patient Disposition: Home - Self-Care Reason For Visit: EXERTIONAL SOB, SYMP ANEMIA Discharge Diagnosis: Symptomatic anemia Fluid Overload Activity: Per Instructions section Exercise/Sports: Wait until after follow-up appointment Non-emergency contact: Primary Care Provider and Continuity Reader Call non-emergency contact if: you have any medication questions, your symptoms worsen, your pain is concerning for you and you have a fever Follow-up/Referrals: Chema Combs MD [Primary Care Provider] - Diet: Heart Healthy Addtl Attending Provider Instructions: Follow-up with your primary care physician in 1 week Follow-up with 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 Ruiz in 3 to 4 weeks as advised Seek immediate medical attention if your symptoms reoccur or worsen Please take all medications as instructed on discharge list below. Please call if you have any questions or problems. You can reach a [facility] hospitalist on duty at [facility] 24 hours a day by calling [phone] Call your Primary Care doctor if any of the following symptoms or problems start or get worse: * Shortness of breath or difficulty breathing * Wake up at night short of breath * Chest pain * Cough * Swelling of your hands, feet, or legs * More fatigued or tired with your normal activity * Palpitations - sudden fast heart beats WEIGHT * Weigh yourself every morning after using the bathroom. * Use the same scale. * Wear the same amount of clothing. * Write your weight down on a chart. * Call your Primary Care doctor if you gain more than 2-3 pounds in 1-2 days. MEDICATIONS * Use this discharge instruction sheet for medication instructions. * Take your medications at the time your doctor ordered. * Do not skip a dose of your medicines. * If you miss a dose of medicine, take it as soon as possible, but DO NOT DOUBLE A DOSE. * Read your medicine information when you get home. * Know all of the side effects of your medicine. If in doubt, ask your pharmacist * Call your Primary Care doctor's office if you have any side effects. * Be sure all of your doctors know what medicine and herbs you take (including cold, flu, and herbal medicine). Take the following with you to your follow-up doctor appointments: * Weight Chart * Medication List * List of questions Do not drink excessive alcohol, beer or wine. Pending Studies at Discharge: No Stand-Alone Forms: My [facility] [employer], Smoking Cessation Medications and DC Order Prescriptions: New metoprolol succinate 50 mg tablet extended release 24 hr 75 mg PO BID 30 Days Qty: 90 1RF furosemide 40 mg Tablet 40 mg PO QAM Qty: 30 1RF Continued (DME) Miscellaneous Pulmonary Supply Misc See Rx Instructions .MEDSUPPLY Qty: 1 0RF Rx Instructions: Nebulizer tubing, cup,mask,filter and supplies. levalbuterol HCl 1.25 mg/3 mL solution for nebulization 1.25 mg inhalation TID PRN (Reason: shortness of breath or wheezing) 30 Days Qty: 270 5RF Eliquis 5 mg tablet 5 mg PO BID acetaminophen 500 mg capsule 1,000 mg PO Q6H PRN (Reason: PAIN/FEVER) albuterol sulfate 90 mcg/actuation HFA aerosol inhaler 2 puff inhalation Q6H PRN (Reason: Shortness Of Breath Or Wheezing) Qty: 18 3RF Trelegy Ellipta 100-62.5-25 mcg blister with device 1 inh INH DAILY 90 Days Qty: 90 4RF aspirin 81 mg tablet,delayed release (DR/EC) 81 mg PO DAILY cholecalciferol (vitamin D3) 2,000 unit Tablet 2,000 unit PO DAILY atorvastatin 20 mg tablet 20 mg PO QAM allopurinol 100 mg Tablet 100 mg PO DAILY Rx Instructions: UNABLE TO VERIFY WITH EXT MED HX. lidocaine-prilocaine 2.5-2.5 % Cream 1 applic topical DIRECTED PRN (Reason: ACCESSING MEDIPORT) Rx Instructions: APPLY TO SKIN OVER MEDIPORT, COVER 1 HR PRIOR TO ACCESSING. metformin 500 mg tablet extended release 24 hr 500 mg PO QAM gemcitabine [Gemzar] 200 mg Recon Soln 0 mg IV DIRECTED Rx Instructions: TAKES DAY 1-8 OF CHEMO DAYS. Imfinzi 50 mg/mL Solution 0 mg IV DIRECTED Rx Instructions: TAKES DAY 1 OF CHEMO cisplatin 50 mg Recon Soln 0 mg IV DIRECTED Rx Instructions: TAKES DAY 1-8 OF CHEMO Discontinued metoprolol tartrate 50 mg tablet 50 mg PO BID diltiazem HCl 120 mg capsule,extended release 24hr 120 mg PO DAILY furosemide 20 mg Tablet 20 mg PO DAILY Discharge Orders: Discharge Order (Routine); Ordered 05/26/23 Ordered By: Nish José Admission Data Admit Date/Time: 05/22/23 13:30 Attending Provider: Nish José Admit Provider: Tricia Preston Primary Care Provider: Chema Combs Other Providers: Tricia Preston; Prashant Ruiz
== END 2023-05-26 14:43 | disposition home or self-care (01) | DRG 811 ==
LOC: ED 10:42 → EDINP 13:30 → SUATTDRO 13:30 → 2W 05-23 17:09